=== PATIENT | female | born 1955 | race Caucasian/White ===

== ENCOUNTER → 2017-05-01 12:08 | Outpatient (CLI) | payer OTHER, MEDICAID, SELFPAY ==
[2017-04-02 12:41] VITALS: BMI 33.3
[2017-04-02 16:05] VITALS: BP 146/79
[2017-05-01 12:41] LABS: Absolute Lymphocyte Count 1.95 X10^3/ul (0.83-4.51); Absolute Neutrophil Count 3.9 X10^3/uL (2.0-7.7); Basophil# 0.04 X10^3/uL; Basophil% 0.6 % (0-1); Eosinophil# 0.16 X10^3/uL; Eosinophils% 2.5 % (0-5); Hematocrit 39.6 % (37-47); Lymphocyte # 1.95 X10^3/ul (4.0); Mean Corp Hgb Conc 32.8 g/gl (32-36); Mean Corpuscular Hgb 32.4 pg (27.0-32.0); Mean Corpuscular Volume 98.8 fL (81-99); Mean Platelet Vol. 9.4 fl (6.2-12.0); Monocyte# 0.47 X10^3/uL; Monocyte% 7.2 % (0-10); Neutrophil # 3.87 X10^3/uL (2.7-7.7); Neutrophil % 59.5 % (47-70); Platelet Count 314 K/mm3 (150-450); RBC Distribution Width CV 12.4 % (11.6-14.6); RBC Distribution Width SD 44.9 fl (35.1-43.9); Red Blood Count 4.01 M/mm3 (4.2-5.4); White Blood Count 6.5 K/mm3 (4.4-11.0)
[2017-05-01 12:44] LABS: POSITIVE COUNT NO; POSITIVE DIFFERENTIAL NO; POSITIVE MORPHOLOGY NO
[2017-05-01 12:58] LABS: Erythrocyte Sedimentation Rate 23 mm/hr (0-30)
[2017-05-01 13:31] LABS: CRP, High Sensitivity Cardiac 2.75 mg/L
== END ==
PROVIDERS: Visit Provider Orthopaedic Surgery
DX: M16.11 Unilateral primary osteoarthritis, right hip (principal)
CPT/HCPCS: 36415; 85025; 85652; 86141

== ENCOUNTER 2017-06-02 07:44 | Inpatient (IN) | payer OTHER, MEDICAID, SELFPAY ==
[2017-05-14 15:04] VITALS: BP 126/69; PULSE 77; RESP 16; TEMP 37.3; O2SAT 97; BMI 32.5
--- NOTE | 2017-05-14 15:19 | SDCEKG_ITS ---
Test Reason : Blood Pressure : / mmHG Vent. Rate : 077 BPM Atrial Rate : 077 BPM P-R Int : 142 ms QRS Dur : 072 ms QT Int : 378 ms P-R-T Axes : 042 056 030 degrees QTc Int : 427 ms Normal sinus rhythm Normal ECG Confirmed by YULISA ARGUETA, ANDRES ([id number]), editor newspaper EMELYN KAUR ([id number]) on 05/16/2017 1:32:07 PM Referred By: Alex Kaur Confirmed By:ANDRES MÁRQUEZ MD
[2017-05-14 16:22] LABS: Hematocrit 37.4 % (37-47); Hemoglobin 12.4 g/dl (12.0-15.0); Mean Corp Hgb Conc 33.2 g/gl (32-36); Mean Corpuscular Hgb 32.9 pg (27.0-32.0); Mean Corpuscular Volume 99.2 fL (81-99); Mean Platelet Vol. 9.9 fl (6.2-12.0); Platelet Count 325 K/mm3 (150-450); RBC Distribution Width CV 12.1 % (11.6-14.6); Red Blood Count 3.77 M/mm3 (4.2-5.4); White Blood Count 7.8 K/mm3 (4.4-11.0)
[2017-05-14 16:27] LABS: Scan Indicated on CBC? Y/N NO
[2017-05-14 16:56] LABS: Anion Gap 8 (5-15); BUN 26 mg/dL (7-18); BUN/Creat Ratio 31.7 RATIO (10-20); Calcium,Total 9.2 mg/dL (8.5-10.1); Chloride 105 mmol/L (98-107); Creatinine, Serum 0.82 mg/dL (0.55-1.02); EST Glomerular Filtration Rate 75 mL/min (>60); Est Glom Filt Rate - Afr Amer 91 mL/min (>60); Estimated Creatinine Clearance 61.43 ml/min; Glucose 97 mg/dL (74-106); Potassium 3.4 mmol/L (3.5-5.1); Sodium Level 142 mmol/L (136-145)
--- NOTE | 2017-05-29 15:09 | CASEMGMT ---
Addendum entered by Emely Blanchard 05/29/17 15:24: Patient returned call. Patient states that she has a walker, cane, toilet riser, and shower chair at home. Patient states that she will be going to her friends house at discharge. Patient states that she is setup with [facility] for outpatient therapy and that her friend Alisha will be providing transportation. DIEUDONNE PAIZ will follow up with patient after surgery and assist with discharge needs. Original Note: RN IZABEL called patient regarding discharge needs after upcoming surgery. No answer and voice message left with return contact information. Chart reviewed at this time and Preadmission assessment states patient plans to return home and her friend Alisha will help with care. RN IZABEL will follow up with patient after surgery and will assist with discharge needs.
[2017-06-02] VITALS (9 sets, daily range): BP systolic 110–153; BP diastolic 40–70; PULSE 75–82; RESP 16; TEMP 36.3–37.2; O2SAT 92–99; BMI 32.5; BMI 32.4
[2017-06-02] MEDS: oxyCODONE HCl Cr 10 MG Tablet PO (08:39)
[2017-06-02] MEDS: Acetaminophen 500 MG Tablet 1000 MG PO ×3 (08:39→21:36)
[2017-06-02] MEDS: Celecoxib 200 MG Capsule 400 MG PO (08:39)
--- NOTE | 2017-06-02 09:55 | HIP_PTH ---
PATIENT: LESLIE AGUIRRE LOC: MS3 U#:[id number] AGE/SX: 61/F ROOM: MS313 RE06/02/[address]: Dr. Alex Kaur MD : [id number] BED: 1 DIS: 06/03/2017 SPEC #: [id number] RECD: 06/02/17 13:07 STATUS: PIETRO RETroy #: [id number] JUANITO: 06/02/17 09:[address]: Alex Kaur DEPT: SURGICAL PATHOLOGY RECD BY: Tree Majano ENTERED: 06/02/17 14:01 SP TYPE: TOTAL HIP OTHR DR: [facility] Tissues: Hip, NOS Procedures: Decalcification bone/plaque Surgery Specimen Level IV HEADER OPERATION: Right total hip replacement PRE-OP DIAGNOSIS: Right hip severe primary osteoarthritis TISSUE SUBMITTED: Right femoral head and soft tissue MICROSCOPIC DIAGNOSIS Right femoral head and soft tissue, total hip replacement/resection: Femoral head with degenerative osteoarthritic changes. LYRIC:shania 06/09/17 MICROSCOPIC DESCRIPTION Slides are reviewed. GROSS DESCRIPTION Received is one container designated right femoral head and soft tissue. The specimen consists of a morales femoral head with portion of femoral neck. The femoral head measures 4.5 x 5 x 4.5 cm and the portion of femoral neck measures 1.5 cm in length. The articular surface displays prominent osteophyte formation, eburnation and bone erosion. Also present in the specimen container are multiple irregular fragments of bone reamings measuring in aggregate 6 x 6 x 1.5 cm. Casting House Worker sections are submitted in three cassettes as follows: 1 ? bone reamings, 2 & 3 ? femoral head after decalcification. / LYRIC:shania 06/02/17 TC:5 [facility]: [id number], [id number]
[2017-06-02] MEDS: Cefazolin 2 GM in 0.9% Normal Saline 100 ML IV (10:15)
--- NOTE | 2017-06-02 11:47 | PCM.OP.BLANK ---
Operative Report Date of Procedure: 06/02/17 Preoperative diagnosis: [Right] hip primary osteoarthritis Postoperative diagnosis: Same Operation: [Right] total hip replacement surgery Surgeon: Dr. Alex Kaur MD Ruby Software Developer: Tiffany Oreilly PA-C Second training and development assistant yes Anesthesia: Spinal Anesthesiologist Dr. Quevedo Special medications: IV [Ancef], IV Tranexamic acid Indications for surgery : Patient is a [ 61]-year-old [female] with a long-standing history of [right] severe hip pain that has failed adequate nonoperative treatment. Due to persistent pain and disability, they decided to proceed with hip replacement surgery. Appropriate informed consent was obtained and signed. Appropriate medical workup was performed preoperatively and patient was deemed safe for surgery by the anesthesia department clerical assistant, physician training and development assistant, was utilized throughout the entire procedure. They were vital in helping with patient positioning, holding of retractors, exposing the tissues adequately for safe completion of the procedure including cutting of the bone, helping assistant buyer appropriate alignment and sizing of the components, implantation of the components, as well as wound closure, bandage application, and safe patient transfer. Without rn neurosurgical, physician training and development assistant, surgical time would have been significantly increased, and surgical outcome would have been less optimal. Operative findings: Patient had severe arthritis of the involved hip joint. They underwent a small posterior approach to the hip. We utilized a size [5 press-fit Accolade 2 stem] 127 degree neck angle, a press fit acetabular component size [50] titanium cluster, Trident X3 polyethylene liner with a 36 mm inner diameter, a Biolox ceramic femoral head size [36] with a +0 neck length. This reproduced there anatomy nicely. Clinically good leg lengths were noted. Good hip stability through range of motion with no undue pistoning. Standard wound closure in layers, followed by myah, followed by Mepilex dressing Details of procedure: Patient was taken to the operating room and transferred to the operating table. Given appropriate anesthetic agent by that department. Patient was then rolled into a lateral decubitus position with the involved painful hip up in the air. Appropriate timeouts had been performed. Hip had been appropriately marked with my initials. Padded anterior and posterior position was utilized. Axillary roll placed. FARIDEH hose and SCDs on the nonoperative limb utilized throughout the procedure. Tranexamic acid IV antibiotics given preoperatively. Operative lower extremity was prepped padded and draped in the usual orthopedic sterile fashion for the procedure. I injected the pain relieving solution in the standard sterile technique of the soft tissues of the hip carefully. Incision was made curving over the tip of the greater trochanter posteriorly. Full thickness skin flaps are raised down on the fascia anthony. Fascia anthony was opened in length with our incision. Charnley self-retaining hip retractor was carefully placed by the surgeon. Leg was appropriately rotated by the training and development assistant. Retractor was used to lift the abductors anteriorly to visualize the piriformis tendon and external rotators. Piriformis tendon and external rotators released off the greater trochanter with the Bovie. Tagging suture was placed in each of these separately. We then split the tissue superior to the piriformis tendon through capsule and onto the pelvis. Acetabular labrum was also divided. With traction and manipulation arthritic femoral head was dislocated from the pelvis. Retractors were carefully placed around the femoral neck. Cutting guide was utilized to map out the proposed cut approximately 1 fingerbreadth above the lesser trochanter. This femoral neck cut was carried out with a saw. Arthritic femoral head removed and measured and inspected. Inferior acetabular retractor was placed by the surgeon, held by the training and development assistant. Bone hook utilized to pull the proximal femur anteriorly, then replaced by a pointed Hohmann. Labrum removed from about the acetabulum a long knife. Tissue removed from the depth of the acetabulum with the Bovie. Arthritic acetabulum was noted. We began reaming with the appropriate sized reamer based on the measurement of the femoral head. Reaming was done with 45? of abduction, 20? of anteversion, reproducing there anatomy. Reaming was done incrementally up to the appropriate size creating a smooth cylindrical acetabulum was done down to healthy bone. Trial acetabular component 1 millimeters smaller than the largest reamer was utilized with the outrigger device. Appropriate abduction and anteversion confirmed as well as size and position of cup. We irrigated with bulb syringe saline. Appropriate acetabular opponent was opened and hammered into position with the outrigger device, with 45? of abduction and 20 degrees of anteversion. We could see through the hole in thrb cup it was adequately down onto the bone in the pelvis. Good stability was noted. Trial liner with a 10? sexton was appropriately positioned. Any anterior and/ or posterior osteophytes removed with an osteotome, rondure. Acetabular retractors removed. A proximal femoral elevator utilized. Held by the training and development assistant. We placed a pointed Homans at the anterior and posterior aspect of that retractor by the other training and development assistant. We used a sharp awl entering down inside the bone of the proximal femur. Utilized the brandon cutting osteotome the proximal lateral greater trochanteric region. The fragment removed. Broaching was then done from the smallest broach, upto the appropriate size. Good stability was confirmed. We then trialed the construct with a standard neck length and appropriate sized femoral head on 127? angle neck. We were happy with the construct. Good stability to flexion, rotation. At this point trials removed. Now placed the appropriate polyethylene acetabular liner into a clean dry previously placed shell. This was hammered into position. Suction device was used to confirm its stability. We now exposed the proximal femur appropriate retractors in place, actual femoral stem was checked, opened, and then hammered into the proximal femur and seated down to a similar position as the trial had. We now again trialed appropriate neck length upon. It was then opened. Now impacted the appropriate sized femoral head, neck construct onto the clean dried trunion. Was noted to be stable. Hip was inspected, and joint was reduced for a final time. Good hip stability and leg lengths noted. Now placed sterile Betadine solution in the hip joint for 3 minutes. This was then irrigated with saline and cleaned. Next the remainder of the pain relieving solution was injected carefully throughout the soft tissues of the hip joint. Closure was carried out with a combination of #1 Vicryl, running #2 strata fix in the fascia anthony, followed by mid layer #1 Vicryl with #1 strata fix running. Next running 0 strata fix, followed by skin myah, Xeroform, Mepilex dressing. We placed FARIDEH hose and SCD on the operative leg. Patient awoken from the anesthetic and transferred back to room bed in recovery room in satisfactory condition. Patient will be admitted for pain management, IV antibiotics, medication for DVT prevention. Hospitalist consulted for postoperative medical management. Hopeful discharge to home in 1-3 days This note was generated with [employer] software. It may contain incorrect words, spelling, and punctuation that were not noted in checking the note before signing.
--- NOTE | 2017-06-02 11:51 | OP.PCM_ITS ---
Operative Report Date of Procedure: 06/02/17 Preoperative diagnosis: [Right] hip primary osteoarthritis Postoperative diagnosis: Same Operation: [Right] total hip replacement surgery Surgeon: Dr. Alex Kaur MD Maintenance Custodian: Tiffany Oreilly PA-C Second school bus driver/teacher assistant yes Anesthesia: Spinal Anesthesiologist Dr. Quevedo Special medications: IV [Ancef], IV Tranexamic acid Indications for surgery : Patient is a [ 61]-year-old [female] with a long- standing history of [right] severe hip pain that has failed adequate nonoperative treatment. Due to persistent pain and disability, they decided to proceed with hip replacement surgery. Appropriate informed consent was obtained and signed. Appropriate medical workup was performed preoperatively and patient was deemed safe for surgery by the anesthesia department assistant principal, physician school bus driver/teacher assistant, was utilized throughout the entire procedure. They were vital in helping with patient positioning, holding of retractors, exposing the tissues adequately for safe completion of the procedure including cutting of the bone, helping heavy machinery assembler appropriate alignment and sizing of the components, implantation of the components, as well as wound closure, bandage application, and safe patient transfer. Without marketing administrative assistant, physician school bus driver/teacher assistant, surgical time would have been significantly increased, and surgical outcome would have been less optimal. Operative findings: Patient had severe arthritis of the involved hip joint. They underwent a small posterior approach to the hip. We utilized a size [5 press-fit Accolade 2 stem] 127 degree neck angle, a press fit acetabular component size [50] titanium cluster, Trident X3 polyethylene liner with a 36 mm inner diameter, a Biolox ceramic femoral head size [36] with a +0 neck length. This reproduced there anatomy nicely. Clinically good leg lengths were noted. Good hip stability through range of motion with no undue pistoning. Standard wound closure in layers, followed by myah, followed by Mepilex dressing Details of procedure: Patient was taken to the operating room and transferred to the operating table. Given appropriate anesthetic agent by that department. Patient was then rolled into a lateral decubitus position with the involved painful hip up in the air. Appropriate timeouts had been performed. Hip had been appropriately marked with my initials. Padded anterior and posterior position was utilized. Axillary roll placed. FARIDEH hose and SCDs on the nonoperative limb utilized throughout the procedure. Tranexamic acid IV antibiotics given preoperatively. Operative lower extremity was prepped padded and draped in the usual orthopedic sterile fashion for the procedure. I injected the pain relieving solution in the standard sterile technique of the soft tissues of the hip carefully. Incision was made curving over the tip of the greater trochanter posteriorly. Full thickness skin flaps are raised down on the fascia anthony. Fascia anthony was opened in length with our incision. Charnley self-retaining hip retractor was carefully placed by the surgeon. Leg was appropriately rotated by the school bus driver/teacher assistant. Retractor was used to lift the abductors anteriorly to visualize the piriformis tendon and external rotators. Piriformis tendon and external rotators released off the greater trochanter with the Bovie. Tagging suture was placed in each of these separately. We then split the tissue superior to the piriformis tendon through capsule and onto the pelvis. Acetabular labrum was also divided. With traction and manipulation arthritic femoral head was dislocated from the pelvis. Retractors were carefully placed around the femoral neck. Cutting guide was utilized to map out the proposed cut approximately 1 fingerbreadth above the lesser trochanter. This femoral neck cut was carried out with a saw. Arthritic femoral head removed and measured and inspected. Inferior acetabular retractor was placed by the surgeon, held by the school bus driver/teacher assistant. Bone hook utilized to pull the proximal femur anteriorly, then replaced by a pointed Hohmann. Labrum removed from about the acetabulum a long knife. Tissue removed from the depth of the acetabulum with the Bovie. Arthritic acetabulum was noted. We began reaming with the appropriate sized reamer based on the measurement of the femoral head. Reaming was done with 45? of abduction, 20? of anteversion, reproducing there anatomy. Reaming was done incrementally up to the appropriate size creating a smooth cylindrical acetabulum was done down to healthy bone. Trial acetabular component 1 millimeters smaller than the largest reamer was utilized with the outrigger device. Appropriate abduction and anteversion confirmed as well as size and position of cup. We irrigated with bulb syringe saline. Appropriate acetabular opponent was opened and hammered into position with the outrigger device, with 45? of abduction and 20 degrees of anteversion. We could see through the hole in thrb cup it was adequately down onto the bone in the pelvis. Good stability was noted. Trial liner with a 10? sexton was appropriately positioned. Any anterior and/ or posterior osteophytes removed with an osteotome, rondure. Acetabular retractors removed. A proximal femoral elevator utilized. Held by the school bus driver/teacher assistant. We placed a pointed Homans at the anterior and posterior aspect of that retractor by the other school bus driver/teacher assistant. We used a sharp awl entering down inside the bone of the proximal femur. Utilized the brandon cutting osteotome the proximal lateral greater trochanteric region. The fragment removed. Broaching was then done from the smallest broach, upto the appropriate size. Good stability was confirmed. We then trialed the construct with a standard neck length and appropriate sized femoral head on 127? angle neck. We were happy with the construct. Good stability to flexion, rotation. At this point trials removed. Now placed the appropriate polyethylene acetabular liner into a clean dry previously placed shell. This was hammered into position. Suction device was used to confirm its stability. We now exposed the proximal femur appropriate retractors in place, actual femoral stem was checked, opened, and then hammered into the proximal femur and seated down to a similar position as the trial had. We now again trialed appropriate neck length upon. It was then opened. Now impacted the appropriate sized femoral head, neck construct onto the clean dried trunion. Was noted to be stable. Hip was inspected, and joint was reduced for a final time. Good hip stability and leg lengths noted. Now placed sterile Betadine solution in the hip joint for 3 minutes. This was then irrigated with saline and cleaned. Next the remainder of the pain relieving solution was injected carefully throughout the soft tissues of the hip joint. Closure was carried out with a combination of #1 Vicryl, running #2 strata fix in the fascia anthony, followed by mid layer #1 Vicryl with #1 strata fix running. Next running 0 strata fix, followed by skin myah, Xeroform, Mepilex dressing. We placed FARIDEH hose and SCD on the operative leg. Patient awoken from the anesthetic and transferred back to room bed in recovery room in satisfactory condition. Patient will be admitted for pain management, IV antibiotics, medication for DVT prevention. Hospitalist consulted for postoperative medical management. Hopeful discharge to home in 1-3 days This note was generated with [employer]ation software. It may contain incorrect words, spelling, and punctuation that were not noted in checking the note before signing.
--- NOTE | 2017-06-02 12:15 | RAD_ITS ---
STUDY: X-RAY - PELVIS AND RIGHT HIP REASON FOR EXAM: Female, 61 years old. Right hip replacement. TECHNIQUE: Radiological exam, hip, unilateral, with pelvis when performed; 1 view COMPARISON: None. FINDINGS: The patient is status post right total hip replacement. Good alignment. Postoperative soft tissue changes. Moderate to severe left osteoarthritis. RAD/Hip Min 2 Views (Portable) IMPRESSION: Status post right total hip replacement. There is good alignment. Postoperative soft tissue changes. Electronically Signed: Arturo Lomeli MD at 15:48 EDT Tel [phone], Service support ,
[2017-06-02] MEDS: Lactated Ringers 1,000 ML 125 ML IV ×2 (13:29→21:35)
[2017-06-02] MEDS: Famotidine 20 MG Tablet PO (13:30)
[2017-06-02] MEDS: Senna/Docusate Sodium 1 Tablet 2 TABLET PO ×2 (13:30→21:36)
[2017-06-02] MEDS: DULoxetine Hcl 30 MG Capsule PO (13:31)
[2017-06-02] MEDS: Cefazolin 1 GM/50 ML BAG IV ×2 (16:42→21:35)
[2017-06-03 02:46] VITALS: BP 126/61; PULSE 77; RESP 18; TEMP 36.6; O2SAT 94
[2017-06-03] MEDS: Rivaroxaban 10 MG Tablet PO (05:32)
[2017-06-03] MEDS: Acetaminophen 500 MG Tablet 1000 MG PO ×2 (05:32→14:20)
[2017-06-03] MEDS: Cefazolin 1 GM/50 ML BAG IV (05:32)
[2017-06-03 05:34] LABS: Hematocrit 31.8 % (37-47); Hemoglobin 10.4 g/dl (12.0-15.0); Mean Corp Hgb Conc 32.7 g/gl (32-36); Mean Corpuscular Hgb 32.5 pg (27.0-32.0); Mean Corpuscular Volume 99.4 fL (81-99); Mean Platelet Vol. 9.8 fl (6.2-12.0); Platelet Count 260 K/mm3 (150-450); RBC Distribution Width CV 11.7 % (11.6-14.6); White Blood Count 6.4 K/mm3 (4.4-11.0)
[2017-06-03 05:37] LABS: Scan Indicated on CBC? Y/N NO
[2017-06-03 07:38] LABS: Anion Gap 7 (5-15); BUN 20 mg/dL (7-18); BUN/Creat Ratio 34.8 RATIO (10-20); Calcium,Total 8.3 mg/dL (8.5-10.1); Chloride 107 mmol/L (98-107); Creatinine, Serum 0.58 mg/dL (0.55-1.02); EST Glomerular Filtration Rate 113 mL/min (>60); Est Glom Filt Rate - Afr Amer 137 mL/min (>60); Estimated Creatinine Clearance 86.84 ml/min; Glucose 89 mg/dL (74-106); Potassium 4.1 mmol/L (3.5-5.1); Sodium Level 140 mmol/L (136-145)
[2017-06-03 07:50] VITALS: BP 125/49; PULSE 86; RESP 16; TEMP 36.7; O2SAT 95
[2017-06-03] MEDS: DULoxetine Hcl 30 MG Capsule PO (09:49)
[2017-06-03] MEDS: Famotidine 20 MG Tablet PO (09:49)
[2017-06-03] MEDS: Senna/Docusate Sodium 1 Tablet 2 TABLET PO (09:50)
--- NOTE | 2017-06-03 10:36 | CASEMGMT ---
RN IZABEL Face to Face with patient for initial transition planning/care coordination assessment. RN CM introduced self and role at [facility]. Patient lying in bed, alert and oriented. Patient willing to participate in assessment and is able to answer all questions appropriately. Care providers, pharmacy, and demographics verified. See link attached. Patient wishes to discharge to friend's home and is setup with outpatient therapy with [facility], with friend Alisha providing transportation. Patient states she has no further needs or concerns at this time. CM to follow for discharge planning needs that may arise. Disposition Plan: Patient to discharge home with outpatient therapy, support from friend, and follow-up plans in place.
--- NOTE | 2017-06-03 11:42 | PCM.PN.ORT ---
Subjective: Patient is resting comfortably in bed during exam. She has been very tired. No adverse events overnight. Pain in the right hip has been well controlled. She did well with physical therapy today. Denies chest pain, shortness of breath, dizziness, calf pain. She is doing well overall. She feels she is ready for discharge to home later today. Objective: Patient is alert and oriented ?3. No acute distress at rest. Breathing easily without respiratory distress. Inspection of right hip reveals a dressing that is clean, dry, intact. Negative Erica bilaterally. Without signs of DVT. Sensation intact light touch bilateral lower extremities. Patient able to actively plantar and dorsiflex bilateral feet against resistance. Pedal pulses present and equal bilaterally. Neurovascularly intact. - Physical Exam Vital Signs Temp Pulse Resp BP Pulse Ox 98.0 F 86 16 125/49 H 95 06/03/17 07:50 06/03/17 07:50 06/03/17 07:50 06/03/17 07:50 06/03/17 07:50 Oxygen Delivery Method Room Air Weight: 86.18 kg Body Mass Index (BMI) 32.4 Intake and Output for Last 24 Hours 06/01/17 06/02/17 06/03/17 23:59 23:59 23:59 Intake Total 2852 / 2852 820 / 820 Balance 2852 / 2852 820 / 820 Laboratory Tests Past 24 Hrs 06/03/17 06/03/17 04:58 04:58 WBC 6.4 RBC 3.20 L Hgb 10.4 L Hct 31.8 L MCV 99.4 H MCH 32.5 H MCHC 32.7 RDW 11.7 RDW Differential 41.0 Plt Count 260 MPV 9.8 Sodium 140 Potassium 4.1 Chloride 107 Carbon Dioxide 26.0 Anion Gap 7 BUN 20 H Creatinine 0.58 Estim Creat Clear Calc 86.84 Est GFR (MDRD) Af Amer 137 Est GFR (MDRD) Non-Af 113 BUN/Creatinine Ratio 34.8 H Glucose 89 Calcium 8.3 L Assessment/Plan 1. Status post right ALIYAH; postop day #1 2. Continue Tylenol, MS Contin, OxyIR for pain control 3. DVT prophylaxis; bilateral teds, SCDs begin Xarelto therapy. Plan for discharge with full strength aspirin 2 times daily 4. Begin PT/OT; weightbearing as tolerated right lower extremity with a walker. Hip dislocation precautions. 5. Drop in hemoglobin/hematocrit, asymptomatic. Without indications for transfusion continue to monitor 6. Encourage incentive spirometry 7. Continue discharge planning with case management. Anticipate discharge to home today. 8. Postoperative x-rays were reviewed
--- NOTE | 2017-06-03 11:51 | PCM.DC.THR ---
Discharge Diet: No Restrictions Discharge Activity: May Not Drive - while taking narcotic pain medications., May not drive while taking narcotic pain medications., Use Walker May shower in (days): 1 - only if incision is dry and without drainage. Do NOT soak/submerge in tub/pool/limon/stream/hot tub. Okay to shower over Mepilex dressing Ice area for (Minutes): 20 - Every hour as needed Weight Bearing Status: Weight bearing as tolerated Elevate: Operative Extremity Additional Activity Instructions:: Wear elastic stockings for 2 weeks. DO NOT use alcohol with narcotic pain medication. DO NOT make important decisions while taking narcotic medication. If you have problems with taking your medication (rash, itching, nausea, etc.) call the office at once. See postoperative pink sheet Call your doctor if your incision/area has: Continuous Slow Oozing, Sudden Increased Bleeding, Increased Pain/ Swelling, Increased Redness, Foul Smelling Discharge, Swelling at the incision site Call your doctor if you observe: Fever of 101 or Higher, Coldness, Increased Pain, Numbness or Tingling, Change in Color, Chest pain, Calf discomfort Remove Dressing in (days):: 5 Cleanse incision/area with: Soap & Water Additional Dressing/Incision Instructions:: See postoperative pink sheet Additional Instructions: Dr. Alex Kaur (cell) [phone] Allergies/Adverse Reactions: Allergies No Known Allergies Allergy (Verified 05/14/17 14:55) Medications to take at Discharge Duloxetine HCl 30 mg PO DAILY 06/14/16 Fluticasone 0.05% [Flonase Nasal Mouthcard] 2 spray NASAL DAILY PRN 05/14/17 Loratadine 10 mg PO DAILY PRN 05/14/17 Melatonin 1 mg PO DAILY PRN 05/14/17 Acetaminophen [Tylenol] 1,000 mg PO Q8 #30 tab 06/03/17 Aspirin 325 mg PO BID #30 tab 06/03/17 MorphINE [Ms Contin] 15 mg PO BID 7 Days #14 tablet 06/03/17 Oxycodone [Oxyir] 5 - 10 mg PO Q4H PRN PRN 7 Days #56 tablet 06/03/17 Senna/Docusate Sodium [Senokot-S] 2 tab PO BID #30 tab 06/03/17 The following prescriptions were given: Oxycodone [Oxyir] 5 - 10 mg PO Q4H PRN PRN 7 Days #56 tablet PRN Reason: Mod-Severe Pain (-12/31) Acetaminophen [Tylenol] 1,000 mg PO Q8 #30 tab Aspirin 325 mg PO BID #30 tab MorphINE [Ms Contin] 15 mg PO BID 7 Days #14 tablet Senna/Docusate Sodium [Senokot-S] 2 tab PO BID #30 tab Primary Care Physician: Lucita Washburn [Primary Care Provider] -
[2017-06-03 14:17] VITALS: BP 123/50; PULSE 81; RESP 16; TEMP 37.2; O2SAT 95
== END 2017-06-03 16:24 | disposition home or self-care (01) | DRG 470 ==
PROVIDERS: Admitting Provider Orthopaedic Surgery; Visit Provider Orthopaedic Surgery
PROC: 0SR90JZ Replacement of Right Hip Joint with Synthetic Substitute, Open Approach (ICD-10-PCS; CPT 27130; principal; 2017-06-02 09:30)
DX: M16.11 Unilateral primary osteoarthritis, right hip (principal); R71.0 Precipitous drop in hematocrit; F32.9 Major depressive disorder, single episode, unspecified; E66.9 Obesity, unspecified; Z68.32 Body mass index [BMI] 32.0-32.9, adult
CPT/HCPCS: 36415; 73502; 80048; 85027; 87081; 88305; 88311; 97110; 97116; 97162; 97165; 97530; 97535; J7120

== ENCOUNTER 2017-11-29 11:11 | Emergency (ER) | payer OTHER, SELFPAY ==
[2017-11-29 11:13] VITALS: BP 157/94; PULSE 84; RESP 20; TEMP 36.8; O2SAT 97; BMI 36.6
--- NOTE | 2017-11-29 12:05 | ED.VISSUMM ---
- ER Visit Summary Date of Service: 11/29/17 Chief Complaint: Left hip pain History of Present Illness: The patient is a 62 F who states that yesterday she began have pain in her left hip. She states it is worse with walking. It was not present when she got up only after she began moving. No trauma. She denies any fevers or rashes. She has a history of degenerative joint disease on that side and has had a prior right hip replacement. Physical Examination: Afebrile vital signs are stable Gen: Well-nourished well-developed Head: Normocephalic atraumatic Eyes: Perrl EOMI ENT: TMs clear no rhinorrhea moist mucous membranes Neck: Supple no lymphadenopathy no JVD nontender CVS: Regular rate rhythm no murmurs normal S1-S2 Respiratory: No distress clear to auscultation bilaterally chest nontender Abdomen: Soft nontender nondistended normal bowel sounds no masses Back: Nontender Extremity: Left leg is neurovascularly intact. There is tenderness over the greater trochanter. There is no pain with logrolling. There is pain with AB and adduction and flexion and extension. Skin: Normal color no rash Neuro: alert orientated ?3 CN II-XII intact normal strength sensation reflexes gait cerebellar Psych: Normal affect normal mood Test Results: X-rays of hip degenerative joint changes were noted. Emergency Department Course and Treatment: The patient has no pain with logrolling of the hip. Her pain seems to be centered over the greater trochanter. I think is most likely a greater trochanteric bursitis. We will treat with a burst pack of prednisone. She is already on anti-inflammatories. I will write for a few OxyIR. She is to follow-up with her surgeon Dr. Kaur. Or with her primary care physician. Impression: 1. Left hip greater trochanteric bursitis This note was generated with [place] acquired by [employer] dictation software. It may contain incorrect words, spelling, and punctuation that were not noted in review of the chart prior to signing ED Disposition - Plan for ED Patient: Disposition: Home or Assisted Living Chief Complaint: Lower Extremity Injury Instructions: ED Bursitis Prescriptions: Oxycodone [Oxyir] 5 mg PO Q6H PRN PRN 3 Days #12 tab PRN Reason: hip pain Prednisone [Deltasone] 40 mg PO DAILY #10 tab Referrals: Lucita Washburn [Primary Care Provider] - 1 Week if not improving Alex Kaur MD [STAFF PHYSICIAN] - 1 Week if not improving
[2017-11-29 12:18] VITALS: BP 133/80; PULSE 81; RESP 16; O2SAT 95
== END 2017-11-29 12:28 | disposition home or self-care (01) ==
LOC: ED 12:24
PROVIDERS: Emergency Provider Emergency Medicine
DX: M70.62 Trochanteric bursitis, left hip (principal); Y93.9 Activity, unspecified; Z96.641 Presence of right artificial hip joint
CPT/HCPCS: 73502; 99282

== ENCOUNTER → 2017-12-03 15:25 | Outpatient (CLI) | payer OTHER, SELFPAY ==
--- NOTE | 2017-12-03 15:26 | BI_ITS ---
MAMMOGRAPHY - BILATERAL SCREENING REASON FOR EXAM: Female, 62 years old. Routine annual screening examination. PERTINENT HISTORY: Non-contributory. TECHNIQUE: Digital bilateral breast guy (3D mammographic acquisition) in the CC and MLO projections. 2-D mediolateral oblique (MLO) and craniocaudad (CC) views of both breasts were obtained. CAD: Full Field Digital Mammography with Computer Added Detection was performed. COMPARISON: Comparison is made with prior study dated October 10, 2015 and November 07, 2015. FINDINGS: Breast Composition: There are scattered areas of fibroglandular density. There are no dominant masses or suspicious calcifications. Stable focal asymmetry in the upper deep lateral portion of the left breast. This most likely represents asymmetrical glandular tissue. Stable appearance of the bilateral small axillary lymph nodes. No other significant abnormalities are identified. There has been no significant change since the prior study. BI/SCREENING MAMM (CAD), BILAT IMPRESSION: Stable bilateral screening mammogram. Yearly follow-up mammogram recommended. (A) ASSESSMENT CATEGORY: BIRADS Category 2: Benign. A letter regarding these results will be sent to the patient by the facility within 30 days. Approximately 10% of breast cancers are not detected by mammography. A normal mammogram should not delay biopsy of a clinically suspicious abnormality. [id number] Electronically Signed: Arturo Lomeli MD at 8:58 EDT Tel [phone], Service support ,
== END ==
DX: Z12.31 Encounter for screening mammogram for malignant neoplasm of breast (principal)
CPT/HCPCS: 77063; 77067

== ENCOUNTER 2018-01-26 04:12 | Inpatient (IN) | payer OTHER, MEDICAID, SELFPAY ==
[2018-01-26] VITALS (37 sets, daily range): BP systolic 89–171; BP diastolic 46–95; PULSE 73–108; RESP 12–22; TEMP 36.3–37.1; O2SAT 88–100; BMI 37.0; BMI 37.1; BMI 37.2
--- NOTE | 2018-01-26 04:15 | RAD_ITS ---
STUDY: X-RAY CHEST REASON FOR EXAM: Female, 62 years old. Left shoulder pain TECHNIQUE: Single frontal view of the chest. COMPARISON: None. FINDINGS: Low lung volumes. Chronic lung changes. Left basilar atelectasis/infiltrate. Azygos lobe. No pneumothorax. No pleural effusion. Normal size heart. Aortic calcifications. There are diffuse degenerative changes of the visualized thoracic spine. There is degenerative osteoarthritis of the bilateral shoulders. There is no demonstrated abnormality of the visualized soft tissue structures of the upper abdomen. RAD/Chest 1 View (Portable) IMPRESSION: Left basilar atelectasis/infiltrate. No focal consolidation is seen. Electronically Signed: Fuentes Estrella, at 4:52 EST Tel , Service support ,
--- NOTE | 2018-01-26 04:15 | EKG12_ITS ---
Test Reason : CP Blood Pressure : / mmHG Vent. Rate : 077 BPM Atrial Rate : 077 BPM P-R Int : 136 ms QRS Dur : 072 ms QT Int : 386 ms P-R-T Axes : 026 025 017 degrees QTc Int : 436 ms Normal sinus rhythm Normal ECG Confirmed by DULCE ARGUETA, RUTH ([id number]), graphics editor EMELYN ZENDEJAS ([id number]) on 01/27/2018 2:08:16 PM Referred By: Natalie Horner Confirmed By:RUTH CARDONA MD
--- NOTE | 2018-01-26 04:18 | ED.DCSUM_ITS ---
- ER Visit Summary Date of Service: 01/26/18 Chief Complaint: Chest pain History of Present Illness: The patient is a 62 F presenting with chest pain that started around 10 PM. Pain is in the left side of her chest and radiates to her left jaw. At its worst it was 9/10. Currently 6/10. She has associated shortness of breath, nausea. She has no PE/DVT risk factors. She is not a smoker. She is scheduled for hip replacement on Friday of this week. Physical Examination: Vitals are stable. Patient is afebrile. Alert no acute distress. HEENT exam is unremarkable. Neck is supple. Lungs are clear and equal bilaterally. Heart is regular rate and rhythm. Abdomen is soft nontender nondistended. Extremities are unremarkable. Skin is warm and dry. No focal neurologic deficit. Remainder of exam is unremarkable. Emergency Department Course and Treatment: Patient is given aspirin, morphine, Zofran. EKG is sinus rate 77. CBC shows white count 11.5, chemistries unremarkable other than BUN 20. Troponin is negative. Chest x-ray shows atelectasis versus infiltrate left base. Patient has no cough or fever. She is pain-free on reevaluation. Discussed with the hospitalist for observation. Disposition: Observation Impression: Chest pain This note was generated with [employer] dictation software. It may contain incorrect words, spelling, and punctuation that were not noted in review of the chart prior to signing ED Disposition - Plan for ED Patient: Chief Complaint: Chest Pain Referrals: Huseyin Luis,Lucita Falk [Primary Care Provider] -
[2018-01-26] MEDS: Ondansetron 4 MG/2 ML Vial IV (04:25)
[2018-01-26 04:27] LABS: Absolute Lymphocyte Count 2.57 X10^3/ul (0.83-4.51); Absolute Neutrophil Count 7.9 X10^3/uL (2.0-7.7); Basophil# 0.06 X10^3/uL; Basophil% 0.5 % (0-1); Eosinophil# 0.11 X10^3/uL; Hematocrit 37.5 % (37-47); Hemoglobin 12.4 g/dl (12.0-15.0); Lymphocyte # 2.57 X10^3/ul (4.0); Lymphocyte % 22.3 % (19-41); Mean Corp Hgb Conc 33.1 g/gl (32-36); Mean Corpuscular Hgb 32.3 pg (27.0-32.0); Mean Corpuscular Volume 97.7 fL (81-99); Mean Platelet Vol. 9.5 fl (6.2-12.0); Monocyte# 0.85 X10^3/uL; Monocyte% 7.4 % (0-10); Neutrophil # 7.89 X10^3/uL (2.7-7.7); Neutrophil % 68.6 % (47-70); Platelet Count 342 K/mm3 (150-450); RBC Distribution Width CV 12.3 % (11.6-14.6); RBC Distribution Width SD 42.4 fl (35.1-43.9); Red Blood Count 3.84 M/mm3 (4.2-5.4); White Blood Count 11.5 K/mm3 (4.4-11.0)
[2018-01-26] MEDS: Morphine 4 MG/ML Syringe IV (04:27)
[2018-01-26 04:29] LABS: POSITIVE COUNT NO; POSITIVE DIFFERENTIAL NO; POSITIVE MORPHOLOGY NO
[2018-01-26 04:47] LABS: Anion Gap 9 (5-15); BUN 20 mg/dL (7-18); BUN/Creat Ratio 30.2 RATIO (10-20); Calcium,Total 8.8 mg/dL (8.5-10.1); Chloride 107 mmol/L (98-107); Creatinine, Serum 0.66 mg/dL (0.55-1.02); EST Glomerular Filtration Rate 96 mL/min (>60); Est Glom Filt Rate - Afr Amer 116 mL/min (>60); Glucose 101 mg/dL (74-106); Potassium 3.5 mmol/L (3.5-5.1); Sodium Level 142 mmol/L (136-145)
--- NOTE | 2018-01-26 05:43 | PCM.HP.STD ---
Problem List (1) Chest pain Status: Acute (2) Depression Status: Acute History of Present Illness Date of Admission: 01/26/18 Chief Complaint: chest pain The patient is a 62 year old F with a significant history of depression; arthritis status post right hip replacement and scheduled left hip replacement; who presented with episodic progressively worsening chest pain. Her symptoms started a day before her admission. Patient reported that all day she had left-sided shoulder pain that radiated to her left neck; and left jaw. She reports soreness at the left neck. The night of the same day around 10 PM she began to have chest pain that radiated to her back. She described the pain as a tightness and heaviness. Her pain is aggravated by turning her neck and also by moving in bed or attempting to change position. Her pain is improved when she lies still. She denied any nausea or diaphoresis. Patient is scheduled to have a left hip replacements on Friday, January 28. She used to take meloxicam for arthritis but because of the upcoming hip replacement surgery she has been off meloxicam for about 1 week. She takes Tylenol at home. Past Medical History Medical History: Medical History (Last Updated 01/26/18 @ 06:04 by Ino Null MD) Osteoarthritis M19.90 Allergies No Known Allergies Allergy (Verified 11/29/17 11:11) Home Medications: Ambulatory Orders Medication Instructions Recorded Duloxetine HCl 30 mg PO DAILY 06/14/16 Fluticasone 0.05% [Flonase Nasal 2 spray NASAL DAILY PRN 05/14/17 [place]] Loratadine 10 mg PO DAILY PRN 05/14/17 Meloxicam 15 mg PO BID 11/29/17 Oxycodone [Oxyir] 5 mg PO Q6H PRN PRN 3 Days #12 tab 11/29/17 Prednisone [Deltasone] 40 mg PO DAILY #10 tab 11/29/17 Surgical History: cholecystectomy, hysterectomy, - - Left hip replacement Psychiatric History: Depression Lives: Alone Smoking Status: Never smoker - *Family History Maternal Family History: Family History (Last Updated 01/26/18 @ 06:09 by Ino Null MD) Father Stomach cancer Heart problem Mother Diabetes Paternal Family History: Family History (Last Updated 01/26/18 @ 06:09 by Ino Null MD) Father Stomach cancer Heart problem Mother Diabetes History Items: - Sibling Family History: Family History (Last Updated 01/26/18 @ 06:09 by Ino Null MD) Father Stomach cancer Heart problem Mother Diabetes History Items: - Review of Systems Constitutional: Denies: Chills, Fever, Weight Change HEENT: Denies: Head Aches, Sinus Congestion, Sinus Drainage Cardiovascular: Reports: Chest Pain. Denies: Palpitations Respiratory: Denies: Cough, Shortness of breath at rest, Sputum production Gastrointestinal: Denies: Abdominal Pain, Nausea, Vomiting Genitourinary: Denies: Dysuria Musculoskeletal: Reports: Neck Pain - Left, Shoulder Pain - Left. Denies: Joint Pain, Joint Tenderness Skin: Denies: Rash, Wounds Neurological: Denies: Numbness, Tingling, Focal weakness Psychiatric: Denies: Anxiety, Depression, Homicidal Ideations, Suicidal Ideations Hematologic/ Lymphatic: Denies: Easy Bruising, Easy Bleeding VTE Information - Inpt Only VTE Present on Admission: No VTE Mechan Device Prophylaxis: None VTE Pharm Prophylaxis ordered?: Yes Patient Problems: Active and Suspected Problems Chest pain (Acute) Depression (Acute) - Physical Exam General: Alert, Oriented x3, Cooperative HEENT: Atraumatic, PERRLA, EOMI, Normocephalic Neck: Supple, No JVD, Negative Carotid Bruits Lungs: Clear to auscultation, Normal air movement, - - Tender substernal area. Cardiovascular: Regular rate, No murmurs Abdomen: Bowel Sounds Present, Soft, Non Tender Extremities: No edema, Capillary Refill Less than 3 Seconds, Tenderness - Left neck and spinous process of upper back. Skin: No rashes, No breakdown Musculoskeletal: No Muscle Wasting Neurological: Cranial nerves II-XII grossly intact Psych/Mental Status: Normal Affect, Appropriate Vital Signs Temp Pulse Resp BP Pulse Ox 98.4 F 80 22 H 171/95 H 96 01/26/18 04:14 01/26/18 04:14 01/26/18 04:14 01/26/18 04:14 01/26/18 04:22 Oxygen Delivery Method Room Air Weight: 91.777 kg Body Mass Index (BMI) 37.0 Laboratory Tests Past 24 Hrs 01/26/18 01/26/18 04:14 04:14 WBC 11.5 H RBC 3.84 L Hgb 12.4 Hct 37.5 MCV 97.7 MCH 32.3 H MCHC 33.1 RDW 12.3 RDW Differential 42.4 Plt Count 342 MPV 9.5 Immature Gran % (Auto) 0.200 Neut % (Auto) 68.6 Lymph % (Auto) 22.3 [place] % (Auto) 7.4 Eos % (Auto) 1.0 Baso % (Auto) 0.5 Absolute Neuts (auto) 7.9 H Absolute Lymphs (auto) 2.57 Total Counted Not Reportable Sodium 142 Potassium 3.5 Chloride 107 Carbon Dioxide 26.0 Anion Gap 9 BUN 20 H Creatinine 0.66 Estim Creat Clear Calc 69.00 Est GFR (MDRD) Af Amer 116 Est GFR (MDRD) Non-Af 96 BUN/Creatinine Ratio 30.2 H Glucose 101 Calcium 8.8 Troponin I < 0.015 Assessment/Plan All Active Problems Chest pain (Acute) Depression (Acute) ? r kidney nodule ct of abd (Acute) Left shoulder pain (Acute) The patient is a 62 year old F with a significant history of depression; arthritis status post right hip replacements and scheduled left hip replacement; who presented with episodic progressively worsening chest pain; left shoulder pain, left neck pain and upper back pain. Chest pain Admit to a monitored bed on PCU Impression of chest x-ray by radiologist included left basilar atelectasis/infiltrate.; aortic calcification; and degenerative osteoarthritis of bilateral shoulders. EKG independently reviewed confirms sinus rhythm with no repolarization abnormalities. Differential diagnosis include musculoskeletal source of chest pain. Review of old records show the patient has left shoulder pain documented on 01/06/2015. Cardiac source of chest pain, can not be ruled out at this time. Especially as patient is going to have left hip surgery in 2 days it will be appropriate to get a stress test to rule out cardiac source of chest pain. Patient took 324 mg of aspirin by herself and paramedics made her take an additional 324 mg of aspirin. So all in all she has received 648 mg of aspirin. No further aspirin for today. Also she was given nitroglycerin by paramedics. SL NTG 0.4 mg prn as needed for chest pain Morphine as needed for pain. High intensity statin x1 ordered. Troponin at emergency department was negative. Serial cardiac enzymes ordered Stat EKG as needed for chest pain Stress test in the AM if the cardiac enzymes are negative. If stress test is negative recommend patient go back to taking meloxicam after her scheduled left hip replacement. Consider short-term dose of pain medicine upon discharge if her stress test is unremarkable. If her pain remains persistent with meloxicam she may need imaging of her neck/shoulder but this will be outpatient. Atelectatic lungs Patient had no cough; or fever. She has some mild leukocytosis. Pneumonia is unlikely. Incentive spirometer ordered. Elevated blood pressure without diagnosis of hypertension. On admission her blood pressure was not within goal. Patient reported anytime that she has pain her blood pressure goes up. Her elevated blood pressure may be because of pain or she may have some underlying benign essential hypertension. Trend blood pressures at this time. Depression Duloxetine continued DVT prophylaxis Subcutaneous Lovenox. Miscellaneous: Home medication reconciliation. She takes Flonase as needed - reports she has no need at this time. She takes loratadine as needed?reports she has no need at this time. Meloxicam is on hold because of her upcoming surgery. She does not take oxycodone at this time. She does not take prednisone at this time. Code Visit OBSV E&M: 15180 Initial observation care L3
--- NOTE | 2018-01-26 07:47 | EKG12_ITS ---
Test Reason : CP REPEAT Blood Pressure : / mmHG Vent. Rate : 073 BPM Atrial Rate : 073 BPM P-R Int : 148 ms QRS Dur : 080 ms QT Int : 398 ms P-R-T Axes : 040 051 032 degrees QTc Int : 438 ms Normal sinus rhythm Normal ECG When compared with ECG of 26-JAN-2018 04:16, MANUAL COMPARISON REQUIRED, DATA IS UNCONFIRMED Confirmed by DULCE ARGUETA, RUTH ([id number]), publications editor EMELYN ZENDEJAS ([id number]) on 01/29/2018 4:02:17 PM Referred By: Natalie Horner Confirmed By:RUTH CARDONA MD
--- NOTE | 2018-01-26 08:00 | STE_ITS ---
Reason For Study: CHEST PAIN Stress Results Protocol: Dobutamine Maximum Predicted HR: 157 bpm Target HR: 133 bpm % Maximum Predicted HR: 87 % DurationHeart Rate Stage (mm:ss) (bpm) BP Dose Comment BASELINE 75 145/75 STAGE 1 3:00 103 135/6710.00 STAGE 2 3:00 134 / 20.00 STAGE 3 0:24 136 / 30.00 RECOVERY 83 149/66 SOME DISCOMFORT IN HER LEFT HEAD/NECK AREA Stress Duration: 6:24 mm:ss Maximum Stress HR: 136 bpm Baseline Echocardiogram Findings Stress Echo Wall motion Data Resting WM Intermediate WM Stress WM Resting Wall Motion Wall Motion Stress No regional wall motion No regional wall motion abnormalities noted. abnormalities noted. Ejection Fraction 60 %. Ejection Fraction 70 %. Stress Results Drug infusion was stopped due to achievement of target heart rate. Normal blood pressure response to exercise. Interpretation Summary Dobutamine stress echocardiogram. Resting EKG demonstrates normal sinus rhythm with rate of 73 bpm normal intervals are noted resting blood pressure 145/75 mmHg. Dobutamine was infused starting at 10 mcg/kg/min increasing in 3-minute increments to a peak of 30 mcg/kg/min. The maximum heart rate attained was noted to be 137 bpm which was 87% of maximum predicted heart rate the maximum workload was 1 metabolic equivalent. Patient maintained sinus rhythm throughout the recording. At rest there were no ST or T wave changes noted suggest ischemia at peak infusion no ST or T wave changes were noted suggest ischemia. The resting blood pressure was noted to be 145/75 with a peak blood pressure 149/66. Stress echocardiographic images. The resting echocardiogram performed demonstrated an ejection fraction of 60%. During dobutamine peak infusion the ejection fraction was noted to be 70%. No wall motion abnormalities were noted. Conclusion. 1. normal dobutamine stress echocardiographic imaging. No arrhythmias noted. Ordering Physician: MD Bird Brizuela MD Referring Physician: Natalie Greene Performed By: Alejandra Maher RDCS, RVT
[2018-01-26] MEDS: Atorvastatin Calcium 80 MG Tablet PO (11:03)
[2018-01-26] MEDS: DULoxetine Hcl 30 MG Capsule PO (11:04)
[2018-01-26] MEDS: Acetaminophen 325 MG Tablet 650 MG PO (11:06)
[2018-01-26] MEDS: DiphenhydrAMINE 50 MG/ML Syringe 25 MG IV (15:00)
[2018-01-26] MEDS: MethylPREDNISolone 125 MG/2 ML Vial IV (15:00)
--- NOTE | 2018-01-26 15:19 | RAD_ITS ---
STUDY: X-RAY CHEST REASON FOR EXAM: Female, 62 years old. Endotracheal tube placement. TECHNIQUE: Single AP portable view of the chest. COMPARISON: Comparison is made with prior examination dated January 26, 2018 at 4:27 AM. FINDINGS: The tip of the endotracheal tube is at the level of the duke. It should be pulled back approximately 2 cm. There is evidence of vascular congestion and mild CHF. There is no demonstrated pleural abnormality. Normal size heart. Stable widening of the superior mediastinum. This may be due to the technique. Normal visualized pulmonary arteries. Normal visualized aortic arch and descending thoracic aorta. Normal visualized thoracic spine. Normal visualized ribs, clavicles, and shoulders. Gaseous distention of the stomach. RAD/Chest 1 View (Portable) IMPRESSION: The tip of the endotracheal tube is at the level of the duke. It should be pulled back approximately 2 cm. Stable widening of the superior mediastinum. Gaseous distention of the stomach. Electronically Signed: Arturo Lomeli MD at 15:40 EST Tel [phone], Service support ,
--- NOTE | 2018-01-26 15:30 | NURSING ---
In ICU 1 per bed from PCU, COVERING MACHINE TENDER and MUD JACK NOZZLEMAN in attendance.
--- NOTE | 2018-01-26 16:00 | RAD_ITS ---
STUDY: X-RAY CHEST REASON FOR EXAM: Female, 62 years old. ET tube placement TECHNIQUE: Single frontal view of the chest. COMPARISON: January 26, 2018 FINDINGS: ET tube is been withdrawn 3 cm above the duke. There is now an enteric tube in the stomach. Mild congestion. Right lower lobe airspace disease or subsegmental atelectasis. There is no demonstrated pleural abnormality. Normal size heart. Prominent mediastinum unchanged. Normal visualized pulmonary arteries. Normal visualized aortic arch and descending thoracic aorta. Normal visualized thoracic spine. Normal visualized ribs, clavicles, and shoulders. There is no demonstrated abnormality of the visualized soft tissue structures of the upper abdomen. RAD/Chest 1 View (Portable) IMPRESSION: New right lower lobe airspace disease and mild congestion. Stable prominent superior mediastinum. ET and NG tubes as above. Electronically Signed: Shreyas Mccloud MD at 16:53 EST , Service support ,
--- NOTE | 2018-01-26 16:09 | NURSING ---
1408-Paged Dr. Brizuela via ammonia print operator--Pt having anaphylactic reaction to x1 dose of Lipitor 80mg. Gave @ 1103. Lips swollen. Welts on back 1418-Paged Dr. Brizuela again via ammonia print operator d/t no response. 1434-Paged Dr. Brizuela again via ammonia print operator d/t no response. 1443 WORKFORCE DEVELOPMENT SPECIALIST called to alert Dr. Brizuela of allergic reaction. Arrived at bedside. Orders obtained. Awaiting pharmacy verification. 1502 In process of giving Benadryl 25mg and Epi 1mg, Pt began to c/o heart racing and not feeling well. Became diaphoretic and pale. 2nd WORKFORCE DEVELOPMENT SPECIALIST called and charge account clerk notified and arrived at bedside. 1504 Code Blue called. See Code documentation.
--- NOTE | 2018-01-26 16:29 | CHAPLAIN ---
Type of Pastoral Visit ___ Initial Visit ___ Follow-up Visit ___ On-call Visit ___ General Patient Visit ___ Spiritual Assessment ___ Family Conference ___ Bereavement ___ Rapid Response _x__ Code Blue ___ Other (describe below) Pastoral Care Referral From ___ Patient ___ Family ___ Nurse ___ Physician ___ Automotive Upholsterer ___ Scooter Mechanic _x__ Other (describe below) Sacrament/Intervention ___ Active listening ___ Anointing ___ Nondenominational ___ Bereavement ___ Communion ___ Mariola exploration ___ ___ Life review _x__ Prayer ___ Reconciliation ___ Sacrament of Sick _x__ Supportive presence ___ Wedding _x_ Other (describe below) Pastoral Comments responded to RR and then Code Blue while patient was in PCU; sat with dear friend who asked hatchery man to contact aircraft structural design engineer of patient; friend agreed to have prayers said for pt; call made to aircraft structural design engineer and he responded; family members are out of state and contact information was unavailable at this time; gave presence with friend and took her to ICU when pt was moved there; sat with friend until their aircraft structural design engineer arrived; made contact with DIEUDONNE
--- NOTE | 2018-01-26 16:51 | PCM.PN.HOSP ---
Patient Problems: Active and Suspected Problems (Last Updated 01/26/18 @ 06:04 by Ino Null MD) Chest pain (Acute) Depression (Acute) Subjective: Patient is a 62-year-old lady admitted with chest discomfort. Patient was placed on a monitored bed AL was ruled out with serial cardiac enzymes as part of his management patient underwent a nuclear stress test to rule out myocardial ischemia. Patient Patient apparently had Lipitor ordered did receive. She apparently went into angioedema resulting in significant swelling of the mouth and tongue. A rapid response was called and order was given for patient to receive epinephrine, Solu-Medrol, Benadryl, as well as famotidine. Patient apparently did receive the ordered medications however her clinical condition continued to deteriorate patient was later found to be in nonsustained VT as well as to start with no pulse ACLS was called patient was successfully resuscitated with return of spontaneous circulation using ACLS protocol. In view of patient's angioedema consultation was placed to anesthesia patient was intubated and transferred to the intensive care unit with consultation placed to the intensive order puller Dr. Ochoa Objective: GENERAL: cooperative HEENT: Markedly swollen lower lips and tongue EYES; Anicteric, Normal Conjunctiva NECK; supple, normal thyroid, no distended JVD. RESPIRATORY: Diminished to auscultation bilaterally, CARDIOVASCULAR: Regular S1 S2, no audible murmurs GI: soft, non-tender, normoactive bowel sounds, : No Renal angle tenderness; EXTREMITIES: No edema, no clubbing, no cyanosis. MUSCULOSKELETAL: No Joint Tenderness; no muscle waisting NEURO: Awake; no lateralizing signs. SKIN: No Rash PSYCH; Normal affect Vitals/I&O's: Vital Signs Temp Pulse Resp BP Pulse Ox 97.9 F 80 20 H 134/79 H 97 01/26/18 14:42 01/26/18 14:42 01/26/18 14:42 01/26/18 14:42 01/26/18 14:42 Oxygen Flow Rate (L/min) 2 Oxygen Delivery Method Nasal Cannula Weight: 92.2 kg Body Mass Index (BMI) 37.1 Intake and Output for Last 24 Hours 01/25/18 01/25/18 01/26/18 00:59 23:59 23:59 Intake Total 500 / 500 Balance 500 / 500 Laboratory Results 01/26/18 04:14: WBC 11.5 H, RBC 3.84 L, Hgb 12.4, Hct 37.5, MCV 97.7, MCH 32.3 H, MCHC 33.1, RDW 12.3, RDW Differential 42.4, Plt Count 342, MPV 9.5, Immature Gran % (Auto) 0.200, Neut % (Auto) 68.6, Lymph % (Auto) 22.3, [place] % (Auto) 7.4, Eos % (Auto) 1.0, Baso % (Auto) 0.5, Absolute Neuts (auto) 7.9 H, Absolute Lymphs (auto) 2.57, Total Counted Not Reportable 01/26/18 04:14: Sodium 142, Potassium 3.5, Chloride 107, Carbon Dioxide 26.0, Anion Gap 9, BUN 20 H, Creatinine 0.66, Estim Creat Clear Calc 69.00, Est GFR (MDRD) Af Amer 116, Est GFR (MDRD) Non-Af 96, BUN/Creatinine Ratio 30.2 H, Glucose 101, Calcium 8.8, Troponin I < 0.015 01/26/18 08:10: Troponin I < 0.015 01/26/18 11:08: Troponin I < 0.015 Current Medications Acetaminophen (Tylenol) 650 mg PO Q6H PRN PRN PRN Reason: Mild Pain (1-3)/Temp > 100.7 F Last Admin: 01/26/18 11:06 Dose: 650 mg Albuterol Sulfate (Ventolin Aerosols) 2.5 mg INHALATION Q2H PRN PRN PRN Reason: DYSPNEA/WHEEZING/SOB Albuterol/Ipratropium (Duoneb) 3 ml INHALATION Q4H.RT BEST Bisacodyl (Dulcolax) 5 mg PO DAILY PRN PRN PRN Reason: Constipation Chlorhexidine Gluconate () 15 ml PO BID [facility] Duloxetine HCl (Cymbalta) 30 mg PO DAILY [facility] Last Admin: 01/26/18 11:04 Dose: 30 mg Enoxaparin Sodium (Lovenox) 40 mg SC DAILY@1000 BEST Famotidine 20 mg/ Sodium (Chloride) 10 mls @ 300 mls/hr IV Q12 [facility] Propofol (Diprivan) 1,000 mg in 100 mls @ 5.532 mls/hr CONT INF .Q12H BEST Magnesium Hydroxide (Milk Of Magnesia) 30 ml PO DAILY PRN PRN Reason: Constipation Morphine Sulfate () 1 - 2 mg IV Q4H PRN PRN PRN Reason: PAIN Nitroglycerin (Nitrostat) 0.4 mg SUBLINGUAL Q5M PRN PRN Reason: CHEST PAIN Ondansetron HCl (Zofran) 4 mg IV Q8H PRN PRN PRN Reason: NAUSEA Sodium Chloride () 5 - 30 ml IV UD PRN PRN Reason: SALINE FLUSH Medical Necessity - Tobacco Use Smoking Status: Never smoker Assessment/Plan All Active Problems (Last Updated 01/26/18 @ 06:04 by Ino Null MD) Left shoulder pain (Acute) ? r kidney nodule ct of abd (Acute) Chest pain (Acute) Depression (Acute) 1. Acute hypoxic respiratory failure related to upper airway obstruction related to patient's angioedema patient was intubated by anesthesia using a glide scope subsequently to the intensive care unit consultation was placed to the order puller 2. Angioedema attributed to patient having received Lipitor patient was administered with Benadryl, Solu-Medrol as well as epinephrine 3. Nonsustained VT and torsades this was aborted with magnesium sulfate as part of patient ACLS protocol 4. Chest pain AL was ruled out with serial cardiac enzymes valuation with a stress echo which was negative for stress-induced ischemia 5. Elevated blood pressure on admission 6. Osteoarthritis 7. DVT prophylaxis SC Lovenox 8. Obesity with BMI of 37.2 CC time spent as part of patient resuscitation running the ACLS code subsequent orders review of imaging transferred to ICU: 55 minutes Code Visit Procedures: 85856 Critial Care 1st Hr
[2018-01-26 17:39] LABS: Phosphorus 3.8 mg/dL (2.5-4.9)
[2018-01-26 17:41] LABS: Absolute Lymphocyte Count 1.14 X10^3/ul (0.83-4.51); Absolute Neutrophil Count 21.5 X10^3/uL (2.0-7.7); Basophil# 0.03 X10^3/uL; Basophil% 0.1 % (0-1); Eosinophil# 0.02 X10^3/uL; Eosinophils% 0.1 % (0-5); Hematocrit 38.1 % (37-47); Hemoglobin 12.6 g/dl (12.0-15.0); Lymphocyte # 1.14 X10^3/ul (4.0); Lymphocyte % 4.9 % (19-41); Mean Corp Hgb Conc 33.1 g/gl (32-36); Mean Corpuscular Hgb 32.4 pg (27.0-32.0); Mean Corpuscular Volume 97.9 fL (81-99); Mean Platelet Vol. 9.9 fl (6.2-12.0); Monocyte# 0.55 X10^3/uL; Monocyte% 2.4 % (0-10); Neutrophil # 21.46 X10^3/uL (2.7-7.7); Neutrophil % 92.2 % (47-70); Platelet Count 334 K/mm3 (150-450); RBC Distribution Width CV 12.4 % (11.6-14.6); RBC Distribution Width SD 43.4 fl (35.1-43.9); Red Blood Count 3.89 M/mm3 (4.2-5.4); White Blood Count 23.3 K/mm3 (4.4-11.0)
[2018-01-26 17:42] LABS: Differential Indicated SCAN CRITERIA MET; POSITIVE COUNT NO; POSITIVE DIFFERENTIAL YES; POSITIVE MORPHOLOGY NO
[2018-01-26] MEDS: Propofol 10MG/Ml 1,000 MG/100 ML Bottle 5.532 MG CONT INF (17:50)
[2018-01-26 18:23] LABS: ALB/GLOB Ratio 0.8 RATIO (0.9-2.4); AST(SGOT) 71 U/L (15-37); Alanine Aminotransfer ALT/SGPT 48 U/L (13-56); Albumin, Serum 3.2 g/dL (3.2-5.0); Alkaline Phosphatase 100 U/L (45-117); Anion Gap 10 (5-15); BUN 21 mg/dL (7-18); Calcium,Total 8.2 mg/dL (8.5-10.1); Chloride 107 mmol/L (98-107); Creatinine, Serum 0.84 mg/dL (0.55-1.02); EST Glomerular Filtration Rate 73 mL/min (>60); Est Glom Filt Rate - Afr Amer 88 mL/min (>60); Estimated Creatinine Clearance 54.22 ml/min; Globulin 4.1 g/dL (2.2-4.2); Glucose 200 mg/dL (74-106); Magnesium 2.6 mg/dL (1.6-2.6); Potassium 3.5 mmol/L (3.5-5.1); Protein, Total 7.3 g/dL (6.4-8.2); Sodium Level 139 mmol/L (136-145)
--- NOTE | 2018-01-26 18:30 | NURSING ---
Addendum entered by Saima Ware 01/26/18 20:09: He states he lives in a care home in [place], as do their boys Original Note: per report, pt states has ex- and 3 sons. w/pt permission, this RN retrieved phone number and called Sam, pt's ex in an effort to find next of kin. Sam states he is her . He provided phone numbers for 2 of 3 sons of the pt.
[2018-01-26 19:11] LABS: Base Excess 2 mmol/L (-2 to +2); Bicarbonate 26.9 mmol/L (22-26); Blood Gas Specimen Type ART; FI02 50; Mode A-C; O2 Delivery Device Vent; PEEP 5; PO2 134 mmHG (75-100); RR 12; SITE R Radial; SO2 99 % (95-99); Time Given 1859; Total Carbon Dioxide 28 mmol/L; Vt 450; pCO2 44.7 mmHg (35-45); pH 7.39 (7.35-7.45)
[2018-01-26] MEDS: Dext 5%-0.45% NS 1,000 ML 100 ML IV (19:15)
[2018-01-26] MEDS: 0.9% NaCl Peripheral Flush Adult/Peds IV (21:11)
[2018-01-26] MEDS: Chlorhexidine 15 ML PO (21:12)
[2018-01-26] MEDS: Ipratropium/Albuterol Sulfate 3 ML AMPUL.NEB INHALATION (22:25)
[2018-01-27] VITALS (38 sets, daily range): BP systolic 113–145; BP diastolic 61–85; PULSE 75–110; RESP 12–32; TEMP 36.7–38.2; O2SAT 94–100
--- NOTE | 2018-01-27 01:23 | NURSING ---
Contacts - Sam Davis (ex-) lives in [place] [phone]. Three sons Nilo Rojo (eldest) lives in [place] no number, Salvador Rojo (middle son) lives in [facility] [phone], and Serina Davis (youngest son) [phone]. Ex called and stated pt had a sister, Nancy, in [place], [place], but did not provide number. Pt responded sister's number was in her phone contact list. This nurse was unable find a number with the contact name of Nancy.
[2018-01-27] MEDS: CHLORHEXIDINE GLUC 2% CLOTH 1 EACH TOWELETTE TOPICAL (01:33)
[2018-01-27] MEDS: Ipratropium/Albuterol Sulfate 3 ML AMPUL.NEB INHALATION (02:10)
[2018-01-27] MEDS: 0.9% NaCl Peripheral Flush Adult/Peds IV ×5 (04:16→23:56)
[2018-01-27] MEDS: Dext 5%-0.45% NS 1,000 ML 100 ML IV (04:16)
[2018-01-27 04:54] LABS: Absolute Neutrophil Count 15.9 X10^3/uL (2.0-7.7); Hematocrit 36.7 % (37-47); Lymphocyte % 4.6 % (19-41); Mean Corp Hgb Conc 32.7 g/gl (32-36); Mean Corpuscular Hgb 31.8 pg (27.0-32.0); Mean Corpuscular Volume 97.3 fL (81-99); Mean Platelet Vol. 10.2 fl (6.2-12.0); Monocyte# 0.72 X10^3/uL; Monocyte% 4.1 % (0-10); Neutrophil # 15.94 X10^3/uL (2.7-7.7); Neutrophil % 91.1 % (47-70); Platelet Count 311 K/mm3 (150-450); RBC Distribution Width CV 12.6 % (11.6-14.6); Red Blood Count 3.77 M/mm3 (4.2-5.4); White Blood Count 17.5 K/mm3 (4.4-11.0)
[2018-01-27 04:56] LABS: POSITIVE COUNT NO; POSITIVE DIFFERENTIAL NO; POSITIVE MORPHOLOGY NO
--- NOTE | 2018-01-27 05:08 | PCM.CON.CC ---
Problem List (1) Anaphylactic reaction Status: Acute Reason for Consult Date of Consultation: 01/27/18 Reason for Consultation: Acute Respiratory Failure History of Present Illness: The patient is a 62-year-old female, with a history as outlined below, who initially presented to the emergency department on January 26 with complaints of atypical chest pain. The patient was initially scheduled to undergo a left hip arthroplasty this week. On presentation, the patient was noted to be afebrile with elevated blood pressures in the 150s systolic. She was, nevertheless, maintaining appropriate oxygen saturations on room air. Initial CBC was largely unremarkable, as well as chemistry profile. Troponins were negative. The patient subsequently underwent a dobutamine stress echocardiogram on January 26, which was noted to be normal. The patient had been started on medical therapy with Lipitor, which she received on January 26 around 11 AM. During the late afternoon hours, a rapid response team was called, as the patient appeared to be developing angioedema. The patient received Pepcid, epinephrine and IV steroids. However, she continued to deteriorate clinically and had to be intubated emergently by anesthesia at the bedside. Per documentation, the patient did experience a transient episode of pulseless VT, for which ACLS was initiated, with subsequent return of spontaneous circulation. The patient was then transferred to the medical intensive care unit for ongoing management. Overnight, no issues were identified by the nursing staff. The patient's sedation was placed on hold this morning. She is currently awake and appropriately interactive. Although she has done well on spontaneous mode mechanical ventilation, she did not have a significant cuff leak noted this morning. Past Medical History Medical History: Medical History (Last Updated 01/26/18 @ 06:04 by Ino Null MD) Osteoarthritis M19.90 Allergies No Known Allergies Allergy (Verified 11/29/17 11:11) Home Medications: Ambulatory Orders Medication Instructions Recorded Duloxetine HCl 30 mg PO DAILY 06/14/16 Loratadine 10 mg PO DAILY PRN 05/14/17 Meloxicam 15 mg PO DAILY 11/29/17 Surgical History: cholecystectomy, hysterectomy, - - Left hip replacement Psychiatric History: Depression Lives: Alone Smoking Status: Never smoker - *Family History Maternal Family History: Family History (Last Updated 01/26/18 @ 06:09 by Ino Null MD) Father Stomach cancer Heart problem Mother Diabetes History Items: - Paternal Family History: Family History (Last Updated 01/26/18 @ 06:09 by Ino Null MD) Father Stomach cancer Heart problem Mother Diabetes History Items: - Sibling Family History: Family History (Last Updated 01/26/18 @ 06:09 by Ino Null MD) Father Stomach cancer Heart problem Mother Diabetes History Items: - Review of Systems Unable to obtain accurate/complete ROS d/t: Due to current intubation and mechanical ventilation status. Patient Problems: Active and Suspected Problems (Last Updated 01/26/18 @ 06:04 by Ino Null MD) Chest pain (Acute) Depression (Acute) Anaphylactic reaction (Acute) Objective: The patient's most recent lab work, culture data and imaging studies have all been personally reviewed. Sputum cultures currently pending. - Physical Exam General: - - Intubated and mechanically ventilated. Currently tolerating CPAP mode mechanical ventilation. HEENT: Atraumatic, PERRLA, Normocephalic Oral: Moist Mucosa, - - The patient's lower lip remains swollen. Neck: Supple, No Nodes, Trachea Midline Lungs: No rhonchi, No wheeze, No rales, Diminished Cardiovascular: Regular rate, Regular Rhythm, Normal S1, Normal S2, No murmurs Abdomen: Bowel Sounds Present, Soft, Non Tender, Obese Extremities: No clubbing, No cyanosis, No edema Skin: No breakdown Musculoskeletal: No Tenderness to Palpation of Joints or Extremities, No Muscle Wasting Lymphatic: No Cervical, Supraclavicular, or Inguinal Adenopathy Neurological: Neuro grossly intact, - - Alert and following commands appropriately. Vital Signs Temp Pulse Resp BP Pulse Ox 98.3 F 78 16 133/85 H 97 01/27/18 04:00 01/27/18 04:00 01/27/18 04:00 01/27/18 04:00 01/27/18 04:00 Oxygen Flow Rate (L/min) 2 Oxygen Delivery Method Mechanical Ventilator Weight: 204 lb 12.951 oz Body Mass Index (BMI) 37.1 Intake and Output for Last 24 Hours 01/25/18 01/26/18 01/27/18 23:59 23:59 23:59 Intake Total 874.9 / 874.9 Output Total 355 / 355 Balance 519.9 / 519.9 Laboratory Tests Past 24 Hrs 11/08/0801/26/18 01/26/18 08:10 11:08 17:05 WBC RBC Hgb Hct MCV MCH MCHC RDW RDW Differential Plt Count MPV Immature Gran % (Auto) Neut % (Auto) Lymph % (Auto) [place] % (Auto) Eos % (Auto) Baso % (Auto) Absolute Neuts (auto) Absolute Lymphs (auto) Total Counted Differential Comment Specimen Type Sample Site pH Bicarbonate Actual POC Total CO2 Base Excess O2 Saturation O2 % ABG pCO2 ABG pO2 Respiration Rate O2 Delivery Device Minute Volume Vent Mode Tidal Volume POC PEEP Blood Gas Notified Whom Blood Gas Notified Time Sodium 139 Potassium 3.5 Chloride 107 Carbon Dioxide 22.0 Anion Gap 10 BUN 21 H Creatinine 0.84 Estim Creat Clear Calc 54.22 Est GFR (MDRD) Af Amer 88 Est GFR (MDRD) Non-Af 73 BUN/Creatinine Ratio 25.0 H Glucose 200 H Calcium 8.2 L Phosphorus Magnesium 2.6 Total Bilirubin 0.70 AST 71 H ALT 48 Alkaline Phosphatase 100 Troponin I < 0.015 < 0.015 Total Protein 7.3 Albumin 3.2 Globulin 4.1 Albumin/Globulin Ratio 0.8 L TSH 2.30 01/26/18 01/26/18 01/26/18 17:05 17:05 19:06 WBC 23.3 H RBC 3.89 L Hgb 12.6 Hct 38.1 MCV 97.9 MCH 32.4 H MCHC 33.1 RDW 12.4 RDW Differential 43.4 Plt Count 334 MPV 9.9 Immature Gran % (Auto) 0.300 Neut % (Auto) 92.2 H Lymph % (Auto) 4.9 L [place] % (Auto) 2.4 Eos % (Auto) 0.1 Baso % (Auto) 0.1 Absolute Neuts (auto) 21.5 H Absolute Lymphs (auto) 1.14 Total Counted Not Reportable Differential Comment Specimen Type ART Sample Site R Radial pH 7.39 Bicarbonate Actual 26.9 H POC Total CO2 28 Base Excess 2 O2 Saturation 99 O2 % 50 ABG pCO2 44.7 ABG pO2 134 H Respiration Rate 12 O2 Delivery Device Vent Minute Volume 6.00 Vent Mode A-C Tidal Volume 450 POC PEEP 5 Blood Gas Notified Whom ICU Blood Gas Notified Time 1859 Sodium Potassium Chloride Carbon Dioxide Anion Gap BUN Creatinine Estim Creat Clear Calc Est GFR (MDRD) Af Amer Est GFR (MDRD) Non-Af BUN/Creatinine Ratio Glucose Calcium Phosphorus 3.8 Magnesium Total Bilirubin AST ALT Alkaline Phosphatase Troponin I Total Protein Albumin Globulin Albumin/Globulin Ratio TSH 01/27/18 01/27/18 04:15 04:15 WBC 17.5 H RBC 3.77 L Hgb 12.0 Hct 36.7 L MCV 97.3 MCH 31.8 MCHC 32.7 RDW 12.6 RDW Differential 45.0 H Plt Count 311 MPV 10.2 Immature Gran % (Auto) 0.200 Neut % (Auto) 91.1 H Lymph % (Auto) 4.6 L [place] % (Auto) 4.1 Eos % (Auto) 0.0 Baso % (Auto) 0.0 Absolute Neuts (auto) 15.9 H Absolute Lymphs (auto) 0.80 L Total Counted Not Reportable Differential Comment Specimen Type Sample Site pH Bicarbonate Actual POC Total CO2 Base Excess O2 Saturation O2 % ABG pCO2 ABG pO2 Respiration Rate O2 Delivery Device Minute Volume Vent Mode Tidal Volume POC PEEP Blood Gas Notified Whom Blood Gas Notified Time Sodium Cancelled Potassium Cancelled Chloride Cancelled Carbon Dioxide Cancelled Anion Gap Cancelled BUN Cancelled Creatinine Cancelled Estim Creat Clear Calc Cancelled Est GFR (MDRD) Af Amer Cancelled Est GFR (MDRD) Non-Af Cancelled BUN/Creatinine Ratio Cancelled Glucose Cancelled Calcium Cancelled Phosphorus Magnesium Cancelled Total Bilirubin AST ALT Alkaline Phosphatase Troponin I Total Protein Albumin Globulin Albumin/Globulin Ratio TSH Clinical Impression(s) from Imaging Studies Chest X-Ray 01/26/18 04:15 IMPRESSION: Left basilar atelectasis/infiltrate. No focal consolidation is seen. Electronically Signed: Fuentes Estrella at 4:52 EST Tel , Service support , Chest X-Ray 01/26/18 15:19 IMPRESSION: The tip of the endotracheal tube is at the level of the duke. It should be pulled back approximately 2 cm. Stable widening of the superior mediastinum. Gaseous distention of the stomach. Electronically Signed: Arturo Lomeli MD at 15:40 EST Tel [phone], Service support , Chest X-Ray 01/26/18 16:00 IMPRESSION: New right lower lobe airspace disease and mild congestion. Stable prominent superior mediastinum. ET and NG tubes as above. Electronically Signed: Shreyas Mccloud MD at 16:53 EST , Service support , Assessment/Plan Active and Suspected Problems (Last Updated 01/26/18 @ 06:04 by Ino Null MD) Chest pain (Acute) Depression (Acute) Anaphylactic reaction (Acute) RECOMMENDATIONS: 1. Change from scheduled aerosol treatments to PRN 2. Although there is little evidence of clear benefit, will start steroids today. 3. Continue Pepcid. 4. Continue patient on spontaneous mode of mechanical ventilation. 5. Start tube feeds today. 6. Plan for daily paired spontaneous awakening and breathing trials. Check cuff leak each morning. 7. Continue Lovenox for DVT prophylaxis IMPRESSIONS: 1. Acute respiratory failure related to anaphylactic reaction and subsequent development of angioedema The patient's airway became compromised as the consequence of a presumed anaphylactic reaction to her newly started statin. She did require emergent intubation and transient ACLS due to the development of pulseless V. tach. The patient's ventilator requirements are minimal this morning. She is alert and following commands appropriately. Although she did do well on a spontaneous breathing trial, her air leak was minimal with the aerial applicator pilot balloon of her endotracheal tube deflated. Therefore, I would continue the patient on full mechanical ventilatory support, while awaiting improvement in her airway edema. In addition to the aforementioned supportive measures, will continue Pepcid and add IV steroids today. We will plan to repeat a spontaneous breathing trial and reassess the patient's cuff leak in the morning. Would plan to start tube feeds today. 2. Atypical chest pain/transient pulseless VT The patient initially presented to the hospital with complaints of atypical chest pain, for which she underwent a cardiac evaluation, which included negative troponins and normal dobutamine stress echocardiogram. Would aim to maintain the patient's potassium greater than 4 and magnesium greater than 2. 3. Leukocytosis Likely stress reaction from the events that developed yesterday. The patient remains afebrile hemodynamically stable. I see no indication for the initiation of antibiotics. TIME: 45 minutes of critical care time, independent of procedures, was spent addressing the patient's acute respiratory failure, anaphylactic reaction, angioedema, atypical chest pain, leukocytosis, review of all data and collaboration with the care team. ([id number]) Code Visit 9xxxx: [id number] Critical care first hour
[2018-01-27 06:00] LABS: Anion Gap 9 (5-15); BUN 20 mg/dL (7-18); Calcium,Total 8.2 mg/dL (8.5-10.1); Chloride 104 mmol/L (98-107); Creatinine, Serum 0.67 mg/dL (0.55-1.02); EST Glomerular Filtration Rate 95 mL/min (>60); Est Glom Filt Rate - Afr Amer 115 mL/min (>60); Estimated Creatinine Clearance 67.97 ml/min; Glucose 191 mg/dL (74-106); Potassium 3.6 mmol/L (3.5-5.1); Sodium Level 138 mmol/L (136-145)
[2018-01-27] MEDS: Ondansetron 4 MG/2 ML Vial IV (06:41)
--- NOTE | 2018-01-27 07:55 | PCM.PN.HOSP ---
Patient Problems: Active and Suspected Problems (Last Updated 01/26/18 @ 06:04 by Ino Null MD) Chest pain (Acute) Depression (Acute) Anaphylactic reaction (Acute) Subjective: Seen remains on the vent with significant swelling involving the tongue as well as lower lip Diagnostic data reviewed significant for leukocytosis attributed to patient having received steroids Objective: GENERAL:AWAKE ON THE VENT HEENT: Markedly swollen lower lips and tongue EYES; Anicteric, Normal Conjunctiva NECK; supple, normal thyroid, no distended JVD. RESPIRATORY: Diminished to auscultation bilaterally, CARDIOVASCULAR: Regular S1 S2, no audible murmurs GI: soft, non-tender, normoactive bowel sounds, : No Renal angle tenderness; EXTREMITIES: No edema, no clubbing, no cyanosis. MUSCULOSKELETAL: No Joint Tenderness; NEURO: Awake; no lateralizing signs. SKIN: No Rash PSYCH; AWAKE ON THE VENT Vitals/I&O's: Vital Signs Temp Pulse Resp BP Pulse Ox 98.7 F 87 20 H 127/74 H 96 01/27/18 07:00 01/27/18 07:00 01/27/18 07:00 01/27/18 07:00 01/27/18 07:00 Oxygen Flow Rate (L/min) 2 Oxygen Delivery Method CPAP Weight: 92.9 kg Body Mass Index (BMI) 37.1 Intake and Output for Last 24 Hours 01/25/18 01/26/18 01/27/18 23:59 23:59 23:59 Intake Total 874.9 / 874.9 716.7 / 716.7 Output Total 355 / 355 250 / 250 Balance 519.9 / 519.9 466.7 / 466.7 Laboratory Results 01/26/18 08:10: Troponin I < 0.015 01/26/18 11:08: Troponin I < 0.015 01/26/18 17:05: Sodium 139, Potassium 3.5, Chloride 107, Carbon Dioxide 22.0, Anion Gap 10, BUN 21 H, Creatinine 0.84, Estim Creat Clear Calc 54.22, Est GFR (MDRD) Af Amer 88, Est GFR (MDRD) Non-Af 73, BUN/Creatinine Ratio 25.0 H, Glucose 200 H, Calcium 8.2 L, Magnesium 2.6, Total Bilirubin 0.70, AST 71 H, ALT 48, Alkaline Phosphatase 100, Total Protein 7.3, Albumin 3.2, Globulin 4.1, Albumin/Globulin Ratio 0.8 L, TSH 2.30 01/26/18 17:05: WBC 23.3 H, RBC 3.89 L, Hgb 12.6, Hct 38.1, MCV 97.9, MCH 32.4 H, MCHC 33.1, RDW 12.4, RDW Differential 43.4, Plt Count 334, MPV 9.9, Immature Gran % (Auto) 0.300, Neut % (Auto) 92.2 H, Lymph % (Auto) 4.9 L, [place] % (Auto) 2.4, Eos % (Auto) 0.1, Baso % (Auto) 0.1, Absolute Neuts (auto) 21.5 H, Absolute Lymphs (auto) 1.14, Total Counted Not Reportable, Differential Comment 01/26/18 17:05: Phosphorus 3.8 01/26/18 19:06: Specimen Type ART, Sample Site R Radial, pH 7.39, Bicarbonate Actual 26.9 H, POC Total CO2 28, Base Excess 2, O2 Saturation 99, O2 % 50, ABG pCO2 44.7, ABG pO2 134 H, Respiration Rate 12, O2 Delivery Device Vent, Minute Volume 6.00, Vent Mode A-C, Tidal Volume 450, POC PEEP 5, Blood Gas Notified Whom ICU MD, Blood Gas Notified Time 1853 01/27/18 04:15: WBC 17.5 H, RBC 3.77 L, Hgb 12.0, Hct 36.7 L, MCV 97.3, MCH 31.8, MCHC 32.7, RDW 12.6, RDW Differential 45.0 H, Plt Count 311, MPV 10.2, Immature Gran % (Auto) 0.200, Neut % (Auto) 91.1 H, Lymph % (Auto) 4.6 L, [place] % (Auto) 4.1, Eos % (Auto) 0.0, Baso % (Auto) 0.0, Absolute Neuts (auto) 15.9 H, Absolute Lymphs (auto) 0.80 L, Total Counted Not Reportable 01/27/18 04:15: Sodium Cancelled, Potassium Cancelled, Chloride Cancelled, Carbon Dioxide Cancelled, Anion Gap Cancelled, BUN Cancelled, Creatinine Cancelled, Estim Creat Clear Calc Cancelled, Est GFR (MDRD) Af Amer Cancelled, Est GFR (MDRD) Non-Af Cancelled, BUN/Creatinine Ratio Cancelled, Glucose Cancelled, Calcium Cancelled, Magnesium Cancelled 01/27/18 05:30: Sodium 138, Potassium 3.6, Chloride 104, Carbon Dioxide 25.0, Anion Gap 9, BUN 20 H, Creatinine 0.67, Estim Creat Clear Calc 67.97, Est GFR (MDRD) Af Amer 115, Est GFR (MDRD) Non-Af 95, BUN/Creatinine Ratio 30.0 H, Glucose 191 H, Calcium 8.2 L, Magnesium 2.0 Current Medications Acetaminophen (Tylenol) 650 mg PO Q6H PRN PRN PRN Reason: Mild Pain (1-3)/Temp > 100.7 F Last Admin: 01/26/18 11:06 Dose: 650 mg Albuterol Sulfate (Ventolin Aerosols) 2.5 mg INHALATION Q2H PRN PRN PRN Reason: DYSPNEA/WHEEZING/SOB Bisacodyl (Dulcolax) 5 mg PO DAILY PRN PRN PRN Reason: Constipation Chlorhexidine Gluconate () 15 ml PO BID [facility] Last Admin: 01/26/18 21:12 Dose: 15 ml Chlorhexidine Gluconate () 1 each TOPICAL DAILY [facility] Last Admin: 01/27/18 01:33 Dose: 1 each Duloxetine HCl (Cymbalta) 30 mg PO DAILY [facility] Last Admin: 01/26/18 11:04 Dose: 30 mg Enoxaparin Sodium (Lovenox) 40 mg SC DAILY@1000 [facility] Last Admin: 01/26/18 19:21 Dose: Not Given Famotidine 20 mg/ Sodium (Chloride) 10 mls @ 300 mls/hr IV Q12 [facility] Last Admin: 01/26/18 21:13 Dose: 300 mls/hr Propofol (Diprivan) 1,000 mg in 100 mls @ 5.532 mls/hr CONT INF .Q12H [facility] Last Admin: 01/27/18 06:27 Dose: Not Given Dextrose/Sodium Chloride () 1,000 mls @ 100 mls/hr IV .Q10H [facility] Last Admin: 01/27/18 04:16 Dose: 100 mls/hr Potassium Chloride (Kcl 10meq/100ml) 10 meq in 100 mls @ 100 mls/hr IV BOLUS Q1H [facility] Stop: 01/27/18 10:59 Magnesium Hydroxide (Milk Of Magnesia) 30 ml PO DAILY PRN PRN Reason: Constipation Methylprednisolone (Solu-Medrol) 40 mg IV Q6 [facility] Morphine Sulfate () 1 - 2 mg IV Q4H PRN PRN PRN Reason: PAIN Nitroglycerin (Nitrostat) 0.4 mg SUBLINGUAL Q5M PRN PRN Reason: CHEST PAIN Ondansetron HCl (Zofran) 4 mg IV Q8H PRN PRN PRN Reason: NAUSEA Last Admin: 01/27/18 06:41 Dose: 4 mg Sodium Chloride () 5 - 30 ml IV UD PRN PRN Reason: SALINE FLUSH Last Admin: 01/27/18 04:16 Dose: 10 ml Medical Necessity - Tobacco Use Smoking Status: Never smoker Assessment/Plan All Active Problems (Last Updated 01/26/18 @ 06:04 by Ino Null MD) Left shoulder pain (Acute) ? r kidney nodule ct of abd (Acute) Chest pain (Acute) Depression (Acute) Anaphylactic reaction (Acute) 1. Acute hypoxic respiratory failure related to upper airway obstruction related to patient's angioedema patient was intubated by anesthesia using a glide scope subsequently to the intensive care unit consultation was placed to the airplane cover maker. Vent management deferred to pulmonary/critical care 2. Angioedema attributed to patient having received Lipitor patient was administered with Benadryl, Solu-Medrol as well as epinephrine 3. Nonsustained VT and torsades this was aborted with magnesium sulfate as part of patient ACLS protocol 4. Chest pain AR was ruled out with serial cardiac enzymes valuation with a stress echo which was negative for stress-induced ischemia 5. Elevated blood pressure on admission 6. Osteoarthritis 7. DVT prophylaxis SC Lovenox 8. Obesity with BMI of 37.2 Code Visit Inpatient E&M: 18540 [facility] L3
--- NOTE | 2018-01-27 07:59 | PN_ITS ---
Patient Problems: Active and Suspected Problems (Last Updated 01/26/18 @ 06:04 by Ino Null MD) Chest pain (Acute) Depression (Acute) Anaphylactic reaction (Acute) Subjective: Seen remains on the vent with significant swelling involving the tongue as well as lower lip Diagnostic data reviewed significant for leukocytosis attributed to patient having received steroids Objective: GENERAL:AWAKE ON THE VENT HEENT: Markedly swollen lower lips and tongue EYES; Anicteric, Normal Conjunctiva NECK; supple, normal thyroid, no distended JVD. RESPIRATORY: Diminished to auscultation bilaterally, CARDIOVASCULAR: Regular S1 S2, no audible murmurs GI: soft, non-tender, normoactive bowel sounds, : No Renal angle tenderness; EXTREMITIES: No edema, no clubbing, no cyanosis. MUSCULOSKELETAL: No Joint Tenderness; NEURO: Awake; no lateralizing signs. SKIN: No Rash PSYCH; AWAKE ON THE VENT Vitals/I&O's: Vital Signs Temp Pulse Resp BP Pulse Ox 98.7 F 87 20 H 127/74 H 96 01/27/18 07:00 01/27/18 07:00 01/27/18 07:00 01/27/18 07:00 01/27/18 07:00 Oxygen Flow Rate (L/min) 2 Oxygen Delivery Method CPAP Weight: 92.9 kg Body Mass Index (BMI) 37.1 Intake and Output for Last 24 Hours 01/25/18 01/26/18 01/27/18 23:59 23:59 23:59 Intake Total 874.9 / 874.9 716.7 / 716.7 Output Total 355 / 355 250 / 250 Balance 519.9 / 519.9 466.7 / 466.7 Laboratory Results 01/26/18 08:10: Troponin I < 0.015 01/26/18 11:08: Troponin I < 0.015 01/26/18 17:05: Sodium 139, Potassium 3.5, Chloride 107, Carbon Dioxide 22.0, Anion Gap 10, BUN 21 H, Creatinine 0.84, Estim Creat Clear Calc 54.22, Est GFR (MDRD) Af Amer 88, Est GFR (MDRD) Non-Af 73, BUN/Creatinine Ratio 25.0 H, Glucose 200 H, Calcium 8.2 L, Magnesium 2.6, Total Bilirubin 0.70, AST 71 H, ALT 48, Alkaline Phosphatase 100, Total Protein 7.3, Albumin 3.2, Globulin 4.1, Albumin/Globulin Ratio 0.8 L, TSH 2.30 01/26/18 17:05: WBC 23.3 H, RBC 3.89 L, Hgb 12.6, Hct 38.1, MCV 97.9, MCH 32.4 H , MCHC 33.1, RDW 12.4, RDW Differential 43.4, Plt Count 334, MPV 9.9, Immature Gran % (Auto) 0.300, Neut % (Auto) 92.2 H, Lymph % (Auto) 4.9 L, [place] % (Auto) 2.4, Eos % (Auto) 0.1, Baso % (Auto) 0.1, Absolute Neuts (auto) 21.5 H, Absolute Lymphs (auto) 1.14, Total Counted Not Reportable, Differential Comment 01/26/18 17:05: Phosphorus 3.8 01/26/18 19:06: Specimen Type ART, Sample Site R Radial, pH 7.39, Bicarbonate Actual 26.9 H, POC Total CO2 28, Base Excess 2, O2 Saturation 99, O2 % 50, ABG pCO2 44.7, ABG pO2 134 H, Respiration Rate 12, O2 Delivery Device Vent, Minute Volume 6.00, Vent Mode A-C, Tidal Volume 450, POC PEEP 5, Blood Gas Notified Whom ICU MD, Blood Gas Notified Time 1852 01/27/18 04:15: WBC 17.5 H, RBC 3.77 L, Hgb 12.0, Hct 36.7 L, MCV 97.3, MCH 31.8, MCHC 32.7, RDW 12.6, RDW Differential 45.0 H, Plt Count 311, MPV 10.2, Immature Gran % (Auto) 0.200, Neut % (Auto) 91.1 H, Lymph % (Auto) 4.6 L, [place] % (Auto) 4.1, Eos % (Auto) 0.0, Baso % (Auto) 0.0, Absolute Neuts (auto) 15.9 H, Absolute Lymphs (auto) 0.80 L, Total Counted Not Reportable 01/27/18 04:15: Sodium Cancelled, Potassium Cancelled, Chloride Cancelled, Carbon Dioxide Cancelled, Anion Gap Cancelled, BUN Cancelled, Creatinine Cancelled, Estim Creat Clear Calc Cancelled, Est GFR (MDRD) Af Amer Cancelled, Est GFR (MDRD) Non-Af Cancelled, BUN/Creatinine Ratio Cancelled, Glucose Cance lled, Calcium Cancelled, Magnesium Cancelled 01/27/18 05:30: Sodium 138, Potassium 3.6, Chloride 104, Carbon Dioxide 25.0, Anion Gap 9, BUN 20 H, Creatinine 0.67, Estim Creat Clear Calc 67.97, Est GFR (MDRD) Af Amer 115, Est GFR (MDRD) Non-Af 95, BUN/Creatinine Ratio 30.0 H, Glucose 191 H, Calcium 8.2 L, Magnesium 2.0 Current Medications Acetaminophen (Tylenol) 650 mg PO Q6H PRN PRN PRN Reason: Mild Pain (1-3)/Temp > 100.7 F Last Admin: 01/26/18 11:06 Dose: 650 mg Albuterol Sulfate (Ventolin Aerosols) 2.5 mg INHALATION Q2H PRN PRN PRN Reason: DYSPNEA/WHEEZING/SOB Bisacodyl (Dulcolax) 5 mg PO DAILY PRN PRN PRN Reason: Constipation Chlorhexidine Gluconate () 15 ml PO BID [facility] Last Admin: 01/26/18 21:12 Dose: 15 ml Chlorhexidine Gluconate () 1 each TOPICAL DAILY [facility] Last Admin: 01/27/18 01:33 Dose: 1 each Duloxetine HCl (Cymbalta) 30 mg PO DAILY [facility] Last Admin: 01/26/18 11:04 Dose: 30 mg Enoxaparin Sodium (Lovenox) 40 mg SC DAILY@1000 [facility] Last Admin: 01/26/18 19:21 Dose: Not Given Famotidine 20 mg/ Sodium (Chloride) 10 mls @ 300 mls/hr IV Q12 [facility] Last Admin: 01/26/18 21:13 Dose: 300 mls/hr Propofol (Diprivan) 1,000 mg in 100 mls @ 5.532 mls/hr CONT INF .Q12H [facility] Last Admin: 01/27/18 06:27 Dose: Not Given Dextrose/Sodium Chloride () 1,000 mls @ 100 mls/hr IV .Q10H [facility] Last Admin: 01/27/18 04:16 Dose: 100 mls/hr Potassium Chloride (Kcl 10meq/100ml) 10 meq in 100 mls @ 100 mls/hr IV BOLUS Q1H BEST Stop: 01/27/18 10:59 Magnesium Hydroxide (Milk Of Magnesia) 30 ml PO DAILY PRN PRN Reason: Constipation Methylprednisolone (Solu-Medrol) 40 mg IV Q6 BEST Morphine Sulfate () 1 - 2 mg IV Q4H PRN PRN PRN Reason: PAIN Nitroglycerin (Nitrostat) 0.4 mg SUBLINGUAL Q5M PRN PRN Reason: CHEST PAIN Ondansetron HCl (Zofran) 4 mg IV Q8H PRN PRN PRN Reason: NAUSEA Last Admin: 01/27/18 06:41 Dose: 4 mg Sodium Chloride () 5 - 30 ml IV UD PRN PRN Reason: SALINE FLUSH Last Admin: 01/27/18 04:16 Dose: 10 ml Medical Necessity - Tobacco Use Smoking Status: Never smoker Assessment/Plan All Active Problems (Last Updated 01/26/18 @ 06:04 by Ino Null MD) Left shoulder pain (Acute) ? r kidney nodule ct of abd (Acute) Chest pain (Acute) Depression (Acute) Anaphylactic reaction (Acute) 1. Acute hypoxic respiratory failure related to upper airway obstruction related to patient's angioedema patient was intubated by anesthesia using a glide scope subsequently to the intensive care unit consultation was placed to the building maintenance engineer. Vent management deferred to pulmonary/critical care 2. Angioedema attributed to patient having received Lipitor patient was administered with Benadryl, Solu-Medrol as well as epinephrine 3. Nonsustained VT and torsades this was aborted with magnesium sulfate as part of patient ACLS protocol 4. Chest pain [place] was ruled out with serial cardiac enzymes valuation with a stress echo which was negative for stress-induced ischemia 5. Elevated blood pressure on admission 6. Osteoarthritis 7. DVT prophylaxis SC Lovenox 8. Obesity with BMI of 37.2 Code Visit Inpatient E&M: 44182 [facility] Hosp L3
[2018-01-27] MEDS: 0.9% NaCl IVPB Med Flush (250 mL) 15 ML IV (08:30)
[2018-01-27] MEDS: Chlorhexidine 15 ML PO ×2 (09:20→22:20)
[2018-01-27] MEDS: Enoxaparin 40 MG/0.4 ML Syringe SC (09:21)
[2018-01-27] MEDS: DiphenhydrAMINE 50 MG/ML Syringe IV ×4 (09:31→23:56)
[2018-01-27] MEDS: Vital AF 1.2 Cal Liquid 1,000 ML 60 ML GT (12:16)
--- NOTE | 2018-01-27 15:48 | CHAPLAIN ---
Type of Pastoral Visit ___ Initial Visit _x__ Follow-up Visit ___ On-call Visit ___ General Patient Visit ___ Spiritual Assessment ___ Family Conference ___ Bereavement ___ Rapid Response ___ Code Blue ___ Other (describe below) Pastoral Care Referral From _x__ Patient ___ Family ___ Nurse ___ Physician ___ Storekeeper Helper ___ Proof Clerk ___ Other (describe below) Sacrament/Intervention ___ Active listening ___ Anointing ___ Jain ___ Bereavement ___ Communion ___ Mariola exploration ___ ___ Life review _x__ Prayer ___ Reconciliation ___ Sacrament of Sick _x__ Supportive presence ___ Wedding ___ Other (describe below) Pastoral Comments
[2018-01-28] VITALS (35 sets, daily range): BP systolic 84–147; BP diastolic 57–91; PULSE 77–112; RESP 12–29; TEMP 37.1–37.9; O2SAT 90–97
[2018-01-28] MEDS: CHLORHEXIDINE GLUC 2% CLOTH 1 EACH TOWELETTE TOPICAL ×2 (03:28→10:19)
[2018-01-28] MEDS: DiphenhydrAMINE 50 MG/ML Syringe IV (05:29)
--- NOTE | 2018-01-28 06:48 | PCM.PN.INT ---
Subjective: The patient was seen and examined at the bedside this morning. Events from the last 24 hours have been reviewed. The patient is currently afebrile, hemodynamically stable and maintaining appropriate oxygen saturations with an FiO2 requirement of 30%. The patient has been maintained on Pepcid, steroids and Benadryl over the last 24 hours. Her swelling has gone down this morning. The patient passed her spontaneous breathing trial and does have a notable air leak noted with deflation of the endotracheal state pilot balloon. The patient is alert and following commands appropriately. Therefore, under my direct supervision, the patient was successfully extubated to supplemental oxygen via nasal cannula this morning. No stridor was noted post extubation. Objective: The patient's most recent lab work, culture data and imaging studies have all been personally reviewed. General: Alert, Cooperative, - - Intubated mechanically ventilated. Currently tolerating CPAP mode mechanical ventilation. HEENT: Atraumatic, PERRLA, Normocephalic Oral: No Gingival or Mucosal Lesions/ Ulcerations, - - Endotracheal and OG tubes remain in place. There is been interval improvement in the degree of oropharyngeal swelling noted previously. Neck: Supple, No Nodes, Trachea Midline Lungs: No rhonchi, No wheeze, No rales, Diminished Cardiovascular: Regular rate, Regular Rhythm, Normal S1, Normal S2, No murmurs Abdomen: Bowel Sounds Present, Soft, Non Tender, Non-Distended Extremities: No clubbing, No cyanosis, No edema Skin: No breakdown Musculoskeletal: No Tenderness to Palpation of Joints or Extremities, No Muscle Wasting Lymphatic: No Cervical, Supraclavicular, or Inguinal Adenopathy Neurological: Cranial nerves II-XII grossly intact, Neuro grossly intact, - - Alert and following commands appropriately. Vital Signs Temp Pulse Resp BP Pulse Ox 37.7 C H 97 28 H 138/67 H 94 01/28/18 06:45 01/28/18 06:45 01/28/18 06:45 01/28/18 06:45 01/28/18 06:45 Oxygen Flow Rate (L/min) 2 Oxygen Delivery Method Nasal Cannula Weight: 200 lb 13.458 oz Body Mass Index (BMI) 37.1 Intake and Output for Last 24 Hours 01/26/18 01/27/18 01/28/18 23:59 23:59 23:59 Intake Total 874.9 / 874.9 2208.7 / 2208.7 357 / 357 Output Total 355 / 355 2350 / 2350 950 / 950 Balance 519.9 / 519.9 -141.3 / -141.3 -593 / -593 Labs (Last 48 Hours) 01/26/18 01/26/18 01/26/18 08:10 11:08 17:05 WBC RBC Hgb Hct MCV MCH MCHC RDW RDW Differential Plt Count MPV Immature Gran % (Auto) Neut % (Auto) Lymph % (Auto) [place] % (Auto) Eos % (Auto) Baso % (Auto) Absolute Neuts (auto) Absolute Lymphs (auto) Total Counted Differential Comment Specimen Type Sample Site pH Bicarbonate Actual POC Total CO2 Base Excess O2 Saturation O2 % ABG pCO2 ABG pO2 Respiration Rate O2 Delivery Device Minute Volume Vent Mode Tidal Volume POC PEEP Blood Gas Notified Whom Blood Gas Notified Time Sodium 139 Potassium 3.5 Chloride 107 Carbon Dioxide 22.0 Anion Gap 10 BUN 21 H Creatinine 0.84 Estim Creat Clear Calc 54.22 Est GFR (MDRD) Af Amer 88 Est GFR (MDRD) Non-Af 73 BUN/Creatinine Ratio 25.0 H Glucose 200 H Calcium 8.2 L Phosphorus Magnesium 2.6 Total Bilirubin 0.70 AST 71 H ALT 48 Alkaline Phosphatase 100 Troponin I < 0.015 < 0.015 Total Protein 7.3 Albumin 3.2 Globulin 4.1 Albumin/Globulin Ratio 0.8 L TSH 2.30 01/26/18 01/26/18 01/26/18 17:05 17:05 19:06 WBC 23.3 H RBC 3.89 L Hgb 12.6 Hct 38.1 MCV 97.9 MCH 32.4 H MCHC 33.1 RDW 12.4 RDW Differential 43.4 Plt Count 334 MPV 9.9 Immature Gran % (Auto) 0.300 Neut % (Auto) 92.2 H Lymph % (Auto) 4.9 L [place] % (Auto) 2.4 Eos % (Auto) 0.1 Baso % (Auto) 0.1 Absolute Neuts (auto) 21.5 H Absolute Lymphs (auto) 1.14 Total Counted Not Reportable Differential Comment Specimen Type ART Sample Site R Radial pH 7.39 Bicarbonate Actual 26.9 H POC Total CO2 28 Base Excess 2 O2 Saturation 99 O2 % 50 ABG pCO2 44.7 ABG pO2 134 H Respiration Rate 12 O2 Delivery Device Vent Minute Volume 6.00 Vent Mode A-C Tidal Volume 450 POC PEEP 5 Blood Gas Notified Whom ICU MD Blood Gas Notified Time 1859 Sodium Potassium Chloride Carbon Dioxide Anion Gap BUN Creatinine Estim Creat Clear Calc Est GFR (MDRD) Af Amer Est GFR (MDRD) Non-Af BUN/Creatinine Ratio Glucose Calcium Phosphorus 3.8 Magnesium Total Bilirubin AST ALT Alkaline Phosphatase Troponin I Total Protein Albumin Globulin Albumin/Globulin Ratio [facility] 01/27/18 01/27/18 01/27/18 04:15 04:15 05:30 WBC 17.5 H RBC 3.77 L Hgb 12.0 Hct 36.7 L MCV 97.3 MCH 31.8 MCHC 32.7 RDW 12.6 RDW Differential 45.0 H Plt Count 311 MPV 10.2 Immature Gran % (Auto) 0.200 Neut % (Auto) 91.1 H Lymph % (Auto) 4.6 L [place] % (Auto) 4.1 Eos % (Auto) 0.0 Baso % (Auto) 0.0 Absolute Neuts (auto) 15.9 H Absolute Lymphs (auto) 0.80 L Total Counted Not Reportable Differential Comment Specimen Type Sample Site pH Bicarbonate Actual POC Total CO2 Base Excess O2 Saturation O2 % ABG pCO2 ABG pO2 Respiration Rate O2 Delivery Device Minute Volume Vent Mode Tidal Volume POC PEEP Blood Gas Notified Whom Blood Gas Notified Time Sodium Cancelled 138 Potassium Cancelled 3.6 Chloride Cancelled 104 Carbon Dioxide Cancelled 25.0 Anion Gap Cancelled 9 BUN Cancelled 20 H Creatinine Cancelled 0.67 Estim Creat Clear Calc Cancelled 67.97 Est GFR (MDRD) Af Amer Cancelled 115 Est GFR (MDRD) Non-Af Cancelled 95 BUN/Creatinine Ratio Cancelled 30.0 H Glucose Cancelled 191 H Calcium Cancelled 8.2 L Phosphorus Magnesium Cancelled 2.0 Total Bilirubin AST ALT Alkaline Phosphatase Troponin I Total Protein Albumin Globulin Albumin/Globulin Ratio TSH Microbiology 01/27/18 04:00 Sputum, Induced/Lukens Gram Stain - Final Clinical Impression(s) from Imaging Studies Chest X-Ray 01/26/18 04:15 IMPRESSION: Left basilar atelectasis/infiltrate. No focal consolidation is seen. Electronically Signed: Fuentes Estrella, at 4:52 EST Tel , Service support , Chest X-Ray 01/26/18 15:19 IMPRESSION: The tip of the endotracheal tube is at the level of the duke. It should be pulled back approximately 2 cm. Stable widening of the superior mediastinum. Gaseous distention of the stomach. Electronically Signed: Arturo Lomeli MD at 15:40 EST Tel [phone], Service support , Chest X-Ray 01/26/18 16:00 IMPRESSION: New right lower lobe airspace disease and mild congestion. Stable prominent superior mediastinum. ET and NG tubes as above. Electronically Signed: Shreyas Mccloud MD at 16:53 EST , Service support , Medical Necessity - Tobacco Use Smoking Status: Never smoker Assessment/Plan All Active Problems (Last Updated 01/26/18 @ 06:04 by Ino Null MD) Left shoulder pain (Acute) ? r kidney nodule ct of abd (Acute) Chest pain (Acute) Depression (Acute) Anaphylactic reaction (Acute) RECOMMENDATIONS: 1. Proceed with a trial of extubation this morning. 2. Continue Pepcid and steroids for now. Benadryl will be discontinued. 3. Wean supplemental oxygen to maintain saturations at or above 90%. 4. Encourage incentive spirometer use. 5. Perform bedside swallow evaluation and advance diet accordingly. 6. Continue Lovenox for DVT prophylaxis IMPRESSIONS: 1. Acute respiratory failure related to anaphylactic reaction and subsequent development of angioedema The patient's airway became compromised as the consequence of a presumed anaphylactic reaction to her newly started statin. She did require emergent intubation and transient ACLS due to the development of pulseless V. tach. The patient's oropharyngeal edema decreased with the utilization of Pepcid, Benadryl and IV steroids. She was able to be successfully extubated from the ventilator on the morning of January 28. At this time, we will plan to wean her supplemental oxygen requirement to maintain saturations at or above 90%. We will continue Pepcid and steroids for now, but will discontinue Benadryl. Encourage incentive spirometer use and mobilize patient as tolerated. Bedside swallow evaluation can be completed and diet advanced accordingly. 2. Atypical chest pain/transient pulseless VT Resolved. The patient initially presented to the hospital with complaints of atypical chest pain, for which she underwent a cardiac evaluation, which included negative troponins and normal dobutamine stress echocardiogram. Would aim to maintain the patient's potassium greater than 4 and magnesium greater than 2. 3. Leukocytosis Likely stress reaction from the events that developed yesterday. The patient remains afebrile and hemodynamically stable. I see no indication for the initiation of antibiotics. TIME: 35 minutes of critical care time, independent of procedures, was spent addressing the patient's acute respiratory failure, anaphylactic reaction, angioedema, atypical chest pain, leukocytosis, review of all data and collaboration with the care team. ([id number]) Code Visit [id number]: [id number] Critical care first hour
--- NOTE | 2018-01-28 06:53 | PN_ITS ---
Subjective: The patient was seen and examined at the bedside this morning. Events from the last 24 hours have been reviewed. The patient is currently afebrile, hemodynamically stable and maintaining appropriate oxygen saturations with an FiO2 requirement of 30%. The patient has been maintained on Pepcid, steroids and Benadryl over the last 24 hours. Her swelling has gone down this morning. The patient passed her spontaneous breathing trial and does have a notable air leak noted with deflation of the endotracheal [facility] balloon. The patient is alert and following commands appropriately. Therefore, under my direct supervision, the patient was successfully extubated to supplemental oxygen via nasal cannula this morning. No stridor was noted post extubation. Objective: The patient's most recent lab work, culture data and imaging studies have all been personally reviewed. General: Alert, Cooperative, - - Intubated mechanically ventilated. Currently tolerating CPAP mode mechanical ventilation. HEENT: Atraumatic, PERRLA, Normocephalic Oral: No Gingival or Mucosal Lesions/ Ulcerations, - - Endotracheal and OG tubes remain in place. There is been interval improvement in the degree of oropharyngeal swelling noted previously. Neck: Supple, No Nodes, Trachea Midline Lungs: No rhonchi, No wheeze, No rales, Diminished Cardiovascular: Regular rate, Regular Rhythm, Normal S1, Normal S2, No murmurs Abdomen: Bowel Sounds Present, Soft, Non Tender, Non-Distended Extremities: No clubbing, No cyanosis, No edema Skin: No breakdown Musculoskeletal: No Tenderness to Palpation of Joints or Extremities, No Muscle Wasting Lymphatic: No Cervical, Supraclavicular, or Inguinal Adenopathy Neurological: Cranial nerves II-XII grossly intact, Neuro grossly intact, - - Alert and following commands appropriately. Vital Signs Temp Pulse Resp BP Pulse Ox 37.7 C H 97 28 H 138/67 H 94 01/28/18 06:45 01/28/18 06:45 01/28/18 06:45 01/28/18 06:45 01/28/18 06:45 Oxygen Flow Rate (L/min) 2 Oxygen Delivery Method Nasal Cannula Weight: 200 lb 13.458 oz Body Mass Index (BMI) 37.1 Intake and Output for Last 24 Hours 01/26/18 01/27/18 01/28/18 23:59 23:59 23:59 Intake Total 874.9 / 874.9 2208.7 / 2208.7 357 / 357 Output Total 355 / 355 2350 / 2350 950 / 950 Balance 519.9 / 519.9 -141.3 / -141.3 -593 / -593 Labs (Last 48 Hours) 01/26/18 01/26/18 01/26/18 08:10 11:08 17:05 WBC RBC Hgb Hct MCV MCH MCHC RDW RDW Differential Plt Count MPV Immature Gran % (Auto) Neut % (Auto) Lymph % (Auto) Union % (Auto) Eos % (Auto) Baso % (Auto) Absolute Neuts (auto) Absolute Lymphs (auto) Total Counted Differential Comment Specimen Type Sample Site pH Bicarbonate Actual POC Total CO2 Base Excess O2 Saturation O2 % ABG pCO2 ABG pO2 Respiration Rate O2 Delivery Device Minute Volume Vent Mode Tidal Volume POC PEEP Blood Gas Notified Whom Blood Gas Notified Time Sodium 139 Potassium 3.5 Chloride 107 Carbon Dioxide 22.0 Anion Gap 10 BUN 21 H Creatinine 0.84 Estim Creat Clear Calc 54.22 Est GFR (MDRD) Af Amer 88 Est GFR (MDRD) Non-Af 73 BUN/Creatinine Ratio 25.0 H Glucose 200 H Calcium 8.2 L Phosphorus Magnesium 2.6 Total Bilirubin 0.70 AST 71 H ALT 48 Alkaline Phosphatase 100 Troponin I < 0.015 < 0.015 Total Protein 7.3 Albumin 3.2 Globulin 4.1 Albumin/Globulin Ratio 0.8 L TSH 2.30 01/26/18 01/26/18 01/26/18 17:05 17:05 19:06 WBC 23.3 H RBC 3.89 L Hgb 12.6 Hct 38.1 MCV 97.9 MCH 32.4 H MCHC 33.1 RDW 12.4 RDW Differential 43.4 Plt Count 334 MPV 9.9 Immature Gran % (Auto) 0.300 Neut % (Auto) 92.2 H Lymph % (Auto) 4.9 L Union % (Auto) 2.4 Eos % (Auto) 0.1 Baso % (Auto) 0.1 Absolute Neuts (auto) 21.5 H Absolute Lymphs (auto) 1.14 Total Counted Not Reportable Differential Comment Specimen Type ART Sample Site R Radial pH 7.39 Bicarbonate Actual 26.9 H POC Total CO2 28 Base Excess 2 O2 Saturation 99 O2 % 50 ABG pCO2 44.7 ABG pO2 134 H Respiration Rate 12 O2 Delivery Device Vent Minute Volume 6.00 Vent Mode A-C Tidal Volume 450 POC PEEP 5 Blood Gas Notified Whom ICU MD Blood Gas Notified Time 1859 Sodium Potassium Chloride Carbon Dioxide Anion Gap BUN Creatinine Estim Creat Clear Calc Est GFR (MDRD) Af Amer Est GFR (MDRD) Non-Af BUN/Creatinine Ratio Glucose Calcium Phosphorus 3.8 Magnesium Total Bilirubin AST ALT Alkaline Phosphatase Troponin I Total Protein Albumin Globulin Albumin/Globulin Ratio [facility] 01/27/18 01/27/18 01/27/18 04:15 04:15 05:30 WBC 17.5 H RBC 3.77 L Hgb 12.0 Hct 36.7 L MCV 97.3 MCH 31.8 MCHC 32.7 RDW 12.6 RDW Differential 45.0 H Plt Count 311 MPV 10.2 Immature Gran % (Auto) 0.200 Neut % (Auto) 91.1 H Lymph % (Auto) 4.6 L Union % (Auto) 4.1 Eos % (Auto) 0.0 Baso % (Auto) 0.0 Absolute Neuts (auto) 15.9 H Absolute Lymphs (auto) 0.80 L Total Counted Not Reportable Differential Comment Specimen Type Sample Site pH Bicarbonate Actual POC Total CO2 Base Excess O2 Saturation O2 % ABG pCO2 ABG pO2 Respiration Rate O2 Delivery Device Minute Volume Vent Mode Tidal Volume POC PEEP Blood Gas Notified Whom Blood Gas Notified Time Sodium Cancelled 138 Potassium Cancelled 3.6 Chloride Cancelled 104 Carbon Dioxide Cancelled 25.0 Anion Gap Cancelled 9 BUN Cancelled 20 H Creatinine Cancelled 0.67 Estim Creat Clear Calc Cancelled 67.97 Est GFR (MDRD) Af Amer Cancelled 115 Est GFR (MDRD) Non-Af Cancelled 95 BUN/Creatinine Ratio Cancelled 30.0 H Glucose Cancelled 191 H Calcium Cancelled 8.2 L Phosphorus Magnesium Cancelled 2.0 Total Bilirubin AST ALT Alkaline Phosphatase Troponin I Total Protein Albumin Globulin Albumin/Globulin Ratio TSH Microbiology 01/27/18 04:00 Sputum, Induced/Lukens Gram Stain - Final Clinical Impression(s) from Imaging Studies Chest X-Ray 01/26/18 04:15 IMPRESSION: Left basilar atelectasis/infiltrate. No focal consolidation is seen. Electronically Signed: Fuentes Estrella, at 4:52 EST Tel , Service support , Chest X-Ray 01/26/18 15:19 IMPRESSION: The tip of the endotracheal tube is at the level of the duke. It should be pulled back approximately 2 cm. Stable widening of the superior mediastinum. Gaseous distention of the stomach. Electronically Signed: Arturo Lomeli MD at 15:40 EST Tel [phone], Service support , Chest X-Ray 01/26/18 16:00 IMPRESSION: New right lower lobe airspace disease and mild congestion. Stable prominent superior mediastinum. ET and NG tubes as above. Electronically Signed: Shreyas Mccloud MD at 16:53 EST , Service support , Medical Necessity - Tobacco Use Smoking Status: Never smoker Assessment/Plan All Active Problems (Last Updated 01/26/18 @ 06:04 by Ino Null MD) Left shoulder pain (Acute) ? r kidney nodule ct of abd (Acute) Chest pain (Acute) Depression (Acute) Anaphylactic reaction (Acute) RECOMMENDATIONS: 1. Proceed with a trial of extubation this morning. 2. Continue Pepcid and steroids for now. Benadryl will be discontinued. 3. Wean supplemental oxygen to maintain saturations at or above 90%. 4. Encourage incentive spirometer use. 5. Perform bedside swallow evaluation and advance diet accordingly. 6. Continue Lovenox for DVT prophylaxis IMPRESSIONS: 1. Acute respiratory failure related to anaphylactic reaction and subsequent development of angioedema The patient's airway became compromised as the consequence of a presumed anaphylactic reaction to her newly started statin. She did require emergent intubation and transient ACLS due to the development of pulseless V. tach. The patient's oropharyngeal edema decreased with the utilization of Pepcid, Benadryl and IV steroids. She was able to be successfully extubated from the ventilator on the morning of January 28. At this time, we will plan to wean her supplemental oxygen requirement to maintain saturations at or above 90%. We will continue Pepcid and steroids for now, but will discontinue Benadryl. Encourage incentive spirometer use and mobilize patient as tolerated. Bedside swallow evaluation can be completed and diet advanced accordingly. 2. Atypical chest pain/transient pulseless VT Resolved. The patient initially presented to the hospital with complaints of atypical chest pain, for which she underwent a cardiac evaluation, which included negative troponins and normal dobutamine stress echocardiogram. Would aim to maintain the patient's potassium greater than 4 and magnesium greater than 2. 3. Leukocytosis Likely stress reaction from the events that developed yesterday. The patient remains afebrile and hemodynamically stable. I see no indication for the initiation of antibiotics. TIME: 35 minutes of critical care time, independent of procedures, was spent addressing the patient's acute respiratory failure, anaphylactic reaction, ang ioedema, atypical chest pain, leukocytosis, review of all data and collaboration with the care team. ([id number]) Code Visit 9xxxx: [id number] Critical care first hour
[2018-01-28 07:20] LABS: Absolute Lymphocyte Count 0.77 X10^3/ul (0.83-4.51); Absolute Neutrophil Count 16.7 X10^3/uL (2.0-7.7); Hematocrit 38.8 % (37-47); Lymphocyte # 0.77 X10^3/ul (4.0); Lymphocyte % 4.1 % (19-41); Mean Corp Hgb Conc 33.5 g/gl (32-36); Mean Corpuscular Hgb 33.2 pg (27.0-32.0); Mean Platelet Vol. 10.2 fl (6.2-12.0); Monocyte# 1.09 X10^3/uL; Monocyte% 5.9 % (0-10); Neutrophil # 16.67 X10^3/uL (2.7-7.7); Neutrophil % 89.8 % (47-70); Platelet Count 357 K/mm3 (150-450); RBC Distribution Width CV 12.4 % (11.6-14.6); RBC Distribution Width SD 44.1 fl (35.1-43.9); Red Blood Count 3.92 M/mm3 (4.2-5.4); White Blood Count 18.6 K/mm3 (4.4-11.0)
--- NOTE | 2018-01-28 07:23 | PN_ITS ---
Patient Problems: Active and Suspected Problems (Last Updated 01/26/18 @ 06:04 by Ino Null MD) Chest pain (Acute) Depression (Acute) Anaphylactic reaction (Acute) Subjective: She was successfully weaned off the ventilator this a.m. She is awake communicating the swelling involving her left significantly down however she still has some swelling involving the tongue. Her leukocytosis remains attributed to patient's having received steroids Objective: GENERAL: Cooperative HEENT: Markedly swollen lower lips and tongue EYES; Anicteric, Normal Conjunctiva NECK; supple, normal thyroid, no distended JVD. RESPIRATORY: Diminished to auscultation bilaterally, CARDIOVASCULAR: Regular S1 S2, no audible murmurs GI: soft, non-tender, normoactive bowel sounds, : No Renal angle tenderness; EXTREMITIES: No edema, no clubbing, no cyanosis. MUSCULOSKELETAL: No Joint Tenderness; NEURO: Awake; no lateralizing signs. SKIN: No Rash PSYCH; appropriate affect Vitals/I&O's: Vital Signs Temp Pulse Resp BP Pulse Ox 99.7 F H 94 13 115/68 94 01/28/18 07:00 01/28/18 07:00 01/28/18 07:00 01/28/18 07:00 01/28/18 07:00 Oxygen Flow Rate (L/min) 2 Oxygen Delivery Method Nasal Cannula Weight: 91.1 kg Body Mass Index (BMI) 37.1 Intake and Output for Last 24 Hours 01/26/18 01/27/18 01/28/18 23:59 23:59 23:59 Intake Total 874.9 / 874.9 2208.7 / 2208.7 357 / 357 Output Total 355 / 355 2350 / 2350 950 / 950 Balance 519.9 / 519.9 -141.3 / -141.3 -593 / -593 Microbiology Past 72 Hours 01/27/18 04:00 Sputum, Induced/Lukens Gram Stain - Final Laboratory Results 01/28/18 07:10: WBC Pending, RBC Pending, Hgb Pending, Hct Pending, MCV Pending, MCH Pending, MCHC Pending, RDW Pending, RDW Differential Pending, Plt Count Pending, Neut % (Auto) Pending, Absolute Neuts (auto) Pending, Total Counted Pending 01/28/18 07:10: Sodium Pending, Potassium Pending, Chloride Pending, Carbon Dioxide Pending, Anion Gap Pending, BUN Pending, Creatinine Pending, Est GFR (MDRD) Af Amer Pending, Est GFR (MDRD) Non-Af Pending, BUN/Creatinine Ratio Pending, Glucose Pending, Calcium Pending Current Medications Acetaminophen (Tylenol) 650 mg PO Q6H PRN PRN PRN Reason: Mild Pain (1-3)/Temp > 100.7 F Last Admin: 01/26/18 11:06 Dose: 650 mg Albuterol Sulfate (Ventolin Aerosols) 2.5 mg INHALATION Q2H PRN PRN PRN Reason: DYSPNEA/WHEEZING/SOB Bisacodyl (Dulcolax) 5 mg PO DAILY PRN PRN PRN Reason: Constipation Chlorhexidine Gluconate () 15 ml PO BID [facility] Last Admin: 01/27/18 22:20 Dose: 15 ml Chlorhexidine Gluconate () 1 each TOPICAL DAILY [facility] Last Admin: 01/28/18 03:28 Dose: 1 each Duloxetine HCl (Cymbalta) 30 mg PO DAILY [facility] Last Admin: 01/27/18 08:35 Dose: Not Given Enoxaparin Sodium (Lovenox) 40 mg SC DAILY@1000 [facility] Last Admin: 01/27/18 09:21 Dose: 40 mg Famotidine 20 mg/ Sodium (Chloride) 10 mls @ 300 mls/hr IV Q12 [facility] Last Admin: 01/27/18 22:20 Dose: 300 mls/hr Sodium Chloride () 250 mls @ 15 mls/hr IV .[id number] PRN PRN Reason: SALINE FLUSH Magnesium Hydroxide (Milk Of Magnesia) 30 ml PO DAILY PRN PRN Reason: Constipation Methylprednisolone (Solu-Medrol) 40 mg IV Q6 [facility] Last Admin: 01/28/18 05:29 Dose: 40 mg Ondansetron HCl (Zofran) 4 mg IV Q8H PRN PRN PRN Reason: NAUSEA Last Admin: 01/27/18 06:41 Dose: 4 mg Sodium Chloride () 5 - 30 ml IV UD PRN PRN Reason: SALINE FLUSH Last Admin: 01/27/18 23:56 Dose: 20 ml Sodium Chloride () 5 - 30 ml IV UD PRN PRN Reason: SALINE FLUSH Medical Necessity - Tobacco Use Smoking Status: Never smoker Assessment/Plan All Active Problems (Last Updated 01/26/18 @ 06:04 by Ino Null MD) Left shoulder pain (Acute) ? r kidney nodule ct of abd (Acute) Chest pain (Acute) Depression (Acute) Anaphylactic reaction (Acute) 1. Acute hypoxic respiratory failure related to upper airway obstruction related to patient's angioedema patient was intubated by anesthesia using a glide scope subsequently to the intensive care unit consultation was placed to the continuity tester. Vent management deferred to pulmonary/critical care. Patient was successfully weaned off the vent on the morning of 01/28/2018. 2. Angioedema attributed to patient having received Lipitor patient was administered with Benadryl, Solu-Medrol as well as epinephrine and remains on Benadryl as well as H1 blockers 3. Nonsustained VT and torsades this was aborted with magnesium sulfate as part of patient ACLS protocol 4. Chest pain SC was ruled out with serial cardiac enzymes valuation with a stress echo which was negative for stress-induced ischemia 5. Elevated blood pressure on admission; blood pressure has since stabilized 6. Osteoarthritis 7. DVT prophylaxis SC Lovenox 8. Obesity with BMI of 37.2 Code Visit Inpatient E&M: 43401 Subs Hosp L3
[2018-01-28 07:30] LABS: POSITIVE COUNT NO; POSITIVE DIFFERENTIAL NO; POSITIVE MORPHOLOGY NO
[2018-01-28 07:35] LABS: Anion Gap 10 (5-15); BUN 27 mg/dL (7-18); BUN/Creat Ratio 33.8 RATIO (10-20); Calcium,Total 8.9 mg/dL (8.5-10.1); Chloride 105 mmol/L (98-107); EST Glomerular Filtration Rate 77 mL/min (>60); Est Glom Filt Rate - Afr Amer 93 mL/min (>60); Estimated Creatinine Clearance 56.93 ml/min; Glucose 156 mg/dL (74-106); Potassium 4.2 mmol/L (3.5-5.1); Sodium Level 142 mmol/L (136-145)
[2018-01-28] MEDS: 0.9% NaCl Peripheral Flush Adult/Peds IV ×5 (10:19→23:50)
[2018-01-28] MEDS: Enoxaparin 40 MG/0.4 ML Syringe SC (10:20)
[2018-01-28] MEDS: DULoxetine Hcl 30 MG Capsule PO (10:20)
[2018-01-28] MEDS: Meloxicam 15 MG Tablet PO (11:07)
--- NOTE | 2018-01-28 11:41 | CASEMGMT ---
RN CM Assessment Intro role of CM to patient in room. Pt presented to ER with chest pain. Was scheduled for hip replacement today, this has been cancelled. Acute hypoxic resp fail due to angioedema. Was intubated on 01/27/18, extubated today. PCP: [facility]: [facility] Insurance: [employer] for me and [facility] Community Plan Living arrangements: lives independently in apartment. Drives. DME: uses cane, has walker Per PT/OT pt ambulated 80' with wheeled walker. Pt states she does have walker at home to use. Is not interested in Home Health at this time. DC PLAN: Home on dc with friend Alisha. Alisha was in room with pt and verified that pt can go home with her and she will assist pt on dc.
[2018-01-29] VITALS (13 sets, daily range): BP systolic 127–150; BP diastolic 59–80; PULSE 69–91; RESP 12–21; TEMP 36.7–37.2; O2SAT 93–97
[2018-01-29 04:35] LABS: Absolute Lymphocyte Count 0.96 X10^3/ul (0.83-4.51); Absolute Neutrophil Count 14.8 X10^3/uL (2.0-7.7); Eosinophil# 0.01 X10^3/uL; Eosinophils% 0.1 % (0-5); Hemoglobin 12.3 g/dl (12.0-15.0); Lymphocyte # 0.96 X10^3/ul (4.0); Lymphocyte % 5.8 % (19-41); Mean Corp Hgb Conc 32.4 g/gl (32-36); Mean Corpuscular Hgb 32.5 pg (27.0-32.0); Mean Corpuscular Volume 100.3 fL (81-99); Mean Platelet Vol. 10.2 fl (6.2-12.0); Monocyte# 0.68 X10^3/uL; Monocyte% 4.1 % (0-10); Neutrophil # 14.82 X10^3/uL (2.7-7.7); Neutrophil % 89.7 % (47-70); Platelet Count 356 K/mm3 (150-450); RBC Distribution Width CV 12.5 % (11.6-14.6); RBC Distribution Width SD 44.1 fl (35.1-43.9); Red Blood Count 3.79 M/mm3 (4.2-5.4); White Blood Count 16.5 K/mm3 (4.4-11.0)
[2018-01-29 04:37] LABS: POSITIVE COUNT NO; POSITIVE DIFFERENTIAL NO; POSITIVE MORPHOLOGY NO
[2018-01-29 04:53] LABS: Anion Gap 8 (5-15); BUN 43 mg/dL (7-18); Calcium,Total 8.6 mg/dL (8.5-10.1); Chloride 108 mmol/L (98-107); Creatinine, Serum 0.76 mg/dL (0.55-1.02); EST Glomerular Filtration Rate 82 mL/min (>60); Est Glom Filt Rate - Afr Amer 100 mL/min (>60); Estimated Creatinine Clearance 59.92 ml/min; Glucose 159 mg/dL (74-106); Potassium 4.1 mmol/L (3.5-5.1); Sodium Level 143 mmol/L (136-145)
--- NOTE | 2018-01-29 06:17 | NURSING ---
Report to DIEUDONNE Man on PCU. Pt will be going to room 127 via w/c and portable monitor.
--- NOTE | 2018-01-29 06:19 | NURSING ---
Transfer orders have not been written. Attempted to call Dr. Ochoa for same. Unable to reach.
--- NOTE | 2018-01-29 06:41 | PN_ITS ---
Subjective: The patient was seen and examined at the bedside this morning. Events from the last 24 hours have been reviewed. The patient is currently afebrile, hemodynamically stable and maintaining appropriate oxygen saturations on 2 L/min via nasal cannula. No overnight events were noted by the nursing staff. The patient has a pending transfer out of the ICU this morning. Objective: The patient's most recent lab work, culture data and imaging studies have all been personally reviewed. Sputum culture revealed normal respiratory travon. General: Alert, Oriented x3, Cooperative, No apparent distress HEENT: Atraumatic, PERRLA, Normocephalic Oral: Moist Mucosa, No Gingival or Mucosal Lesions/ Ulcerations, - - Oropharyngeal edema has resolved. Neck: Supple, No Nodes, Trachea Midline Lungs: Normal air movement, No rhonchi, No wheeze, No rales Cardiovascular: Regular rate, Regular Rhythm, Normal S1, Normal S2, No murmurs Abdomen: Bowel Sounds Present, Soft, Non Tender Extremities: No clubbing, No cyanosis, No edema Musculoskeletal: No Tenderness to Palpation of Joints or Extremities, No Muscle Wasting Lymphatic: No Cervical, Supraclavicular, or Inguinal Adenopathy Neurological: Cranial nerves II-XII grossly intact, Neuro grossly intact Psych/Mental Status: Alert and oriented to time, place, person, mood and affect Vital Signs Temp Pulse Resp BP Pulse Ox 37.2 C 69 15 145/80 H 95 01/29/18 00:00 01/29/18 06:00 01/29/18 06:00 01/29/18 06:00 01/29/18 06:00 Oxygen Flow Rate (L/min) 2 Oxygen Delivery Method Nasal Cannula Weight: 199 lb 4.766 oz Body Mass Index (BMI) 37.1 Intake and Output for Last 24 Hours 01/27/18 01/28/18 01/29/18 23:59 23:59 23:59 Intake Total 2208.7 / 2208.7 1617 / 1617 240 / 240 Output Total 2350 / 2350 2200 / 2200 350 / 350 Balance -141.3 / -141.3 -583 / -583 -110 / -110 Labs (Last 48 Hours) 01/28/18 01/28/18 01/29/18 07:10 07:10 04:20 WBC 18.6 H 16.5 H RBC 3.92 L 3.79 L Hgb 13.0 12.3 Hct 38.8 38.0 MCV 99.0 100.3 H MCH 33.2 H 32.5 H MCHC 33.5 32.4 RDW 12.4 12.5 RDW Differential 44.1 H 44.1 H Plt Count 357 356 MPV 10.2 10.2 Immature Gran % (Auto) 0.200 0.300 Neut % (Auto) 89.8 H 89.7 H Lymph % (Auto) 4.1 L 5.8 L Fisher % (Auto) 5.9 4.1 Eos % (Auto) 0.0 0.1 Baso % (Auto) 0.0 0.0 Absolute Neuts (auto) 16.7 H 14.8 H Absolute Lymphs (auto) 0.77 L 0.96 Total Counted Not Reportable Not Reportable Sodium 142 Potassium 4.2 Chloride 105 Carbon Dioxide 27.0 Anion Gap 10 BUN 27 H Creatinine 0.80 Estim Creat Clear Calc 56.93 Est GFR (MDRD) Af Amer 93 Est GFR (MDRD) Non-Af 77 BUN/Creatinine Ratio 33.8 H Glucose 156 H Calcium 8.9 01/29/18 04:20 WBC RBC Hgb Hct MCV MCH MCHC RDW RDW Differential Plt Count MPV Immature Gran % (Auto) Neut % (Auto) Lymph % (Auto) Fisher % (Auto) Eos % (Auto) Baso % (Auto) Absolute Neuts (auto) Absolute Lymphs (auto) Total Counted Sodium 143 Potassium 4.1 Chloride 108 H Carbon Dioxide 27.0 Anion Gap 8 BUN 43 H Creatinine 0.76 Estim Creat Clear Calc 59.92 Est GFR (MDRD) Af Amer 100 Est GFR (MDRD) Non-Af 82 BUN/Creatinine Ratio 57.0 H Glucose 159 H Calcium 8.6 Microbiology 01/27/18 04:00 Sputum, Induced/Lukens Gram Stain - Final 01/27/18 04:00 Sputum, Induced/Lukens Respiratory Culture - Preliminary Appears to be normal respiratory travon. Further studies to follow. Clinical Impression(s) from Imaging Studies Chest X-Ray 01/26/18 04:15 IMPRESSION: Left basilar atelectasis/infiltrate. No focal consolidation is seen. Electronically Signed: Fuentes Estrella, at 4:52 EST Tel , Service support , Chest X-Ray 01/26/18 15:19 IMPRESSION: The tip of the endotracheal tube is at the level of the duke. It should be pulled back approximately 2 cm. Stable widening of the superior mediastinum. Gaseous distention of the stomach. Electronically Signed: Arturo Lomeli MD at 15:40 EST Tel [phone], Service support , Chest X-Ray 01/26/18 16:00 IMPRESSION: New right lower lobe airspace disease and mild congestion. Stable prominent superior mediastinum. ET and NG tubes as above. Electronically Signed: Shreyas Mccloud MD at 16:53 EST , Service support , Medical Necessity - Tobacco Use Smoking Status: Never smoker Assessment/Plan All Active Problems (Last Updated 01/26/18 @ 06:04 by Ino Null MD) Left shoulder pain (Acute) ? r kidney nodule ct of abd (Acute) Chest pain (Acute) Depression (Acute) Anaphylactic reaction (Acute) RECOMMENDATIONS: 1. Wean supplemental oxygen to maintain saturations at or above 90%. Encourage incentive spirometer use. 2. Okay to discontinue Pepcid and steroids from my perspective. 3. Continue Lovenox for DVT prophylaxis IMPRESSIONS: 1. Acute respiratory failure related to anaphylactic reaction and subsequent development of angioedema The patient's airway became compromised as the consequence of a presumed anaphylactic reaction to her newly started statin. She did require emergent intubation and transient ACLS due to the development of pulseless V. tach. The patient's oropharyngeal edema decreased with the utilization of Pepcid, Benadryl and IV steroids. She was able to be successfully extubated from the ventilator on the morning of January 28. At this time, we will plan to wean her supplemental oxygen requirement to maintain saturations at or above 90%. 2. Atypical chest pain/transient pulseless VT Resolved. The patient initially presented to the hospital with complaints of atypical chest pain, for which she underwent a cardiac evaluation, which included negative troponins and normal dobutamine stress echocardiogram. Would aim to maintain the patient's potassium greater than 4 and magnesium greater than 2. 3. Leukocytosis Improving. The patient remains afebrile. Likely stress reaction from the events that developed earlier in the hospitalization. I see no indication for the initiation of antibiotics. This note was generated with Spottedation software. It may contain incorrect words, spelling, and punctuation that were not noted in checking the note before signing. DISPOSITION: The patient is medically stable for transfer out of the intensive care unit. Given her lack of ongoing ICU/pulmonary needs, will sign off. Please call with any additional questions. Code Visit Inpatient E&M: 52416 [facility] Hosp L3
[2018-01-29] MEDS: DULoxetine Hcl 30 MG Capsule PO (09:26)
[2018-01-29] MEDS: Enoxaparin 40 MG/0.4 ML Syringe SC (09:26)
[2018-01-29] MEDS: Meloxicam 15 MG Tablet PO (09:26)
[2018-01-29] MEDS: 0.9% NaCl Peripheral Flush Adult/Peds IV (09:30)
--- NOTE | 2018-01-29 10:35 | DCINST_ITS ---
- Discharge Diagnoses Current Active Problems: Current Active and Chronic Problems (Last Updated 01/26/18 @ 06:04 by Ino Null MD) Chest pain (Acute) Depression (Acute) Anaphylactic reaction (Acute) You will use the following diet at home:: No restrictions Allergies/Adverse Reactions: Allergies atorvastatin [From Lipitor] Allergy (Verified 01/27/18 07:26) Anaphylaxis Medications to take at Discharge Duloxetine HCl 30 mg PO DAILY 06/14/16 Loratadine 10 mg PO DAILY PRN 05/14/17 Meloxicam 15 mg PO DAILY 11/29/17 Primary Care Physician: Lucita Washburn [Primary Care Provider] - Test Results: Test results from this visit will be discussed in further detail at your follow- up appointment, if applicable. Please Follow Up With: PRIMARY CARE PHYSCIAN When: IN 5-7 DAYS Proposed Discharge Date: 01/29/18
--- NOTE | 2018-01-29 10:36 | PCM.DC.SUM ---
Discharge Date and Diagnosis - Problem List Patient Problems: Active and Suspected Problems (Last Updated 01/26/18 @ 06:04 by Ino Null MD) Chest pain (Acute) Depression (Acute) Anaphylactic reaction (Acute) Date of Admission: 01/26/18 Date of Discharge: 01/29/18 - Primary Discharge Diagnosis Active and Suspected Problems (Last Updated 01/26/18 @ 06:04 by Ino Null MD) Chest pain (Acute) Depression (Acute) Anaphylactic reaction (Acute) Hospital Course and Treatment Imaging Results: Clinical Impression(s) from Imaging Studies Chest X-Ray 01/26/18 04:15 IMPRESSION: Left basilar atelectasis/infiltrate. No focal consolidation is seen. Electronically Signed: Fuentes Estrella at 4:52 EST Tel , Service support , Chest X-Ray 01/26/18 15:19 IMPRESSION: The tip of the endotracheal tube is at the level of the duek. It should be pulled back approximately 2 cm. Stable widening of the superior mediastinum. Gaseous distention of the stomach. Electronically Signed: Arturo Lomeli MD at 15:40 EST Tel [phone], Service support , Chest X-Ray 01/26/18 16:00 IMPRESSION: New right lower lobe airspace disease and mild congestion. Stable prominent superior mediastinum. ET and NG tubes as above. Electronically Signed: Shreyas Mccloud MD at 16:53 EST , Service support , Operations: None Summary of Care Provided: The patient is a 62 year old F admitted with chest pain. Patient underwent echo which was negative for stress-induced ischemia. Patient apparently did receive Lipitor resulting in patient developing angioedema and subsequently respiratory arrest for which patient was resuscitated using ACLS protocol. Patient was intubated and sent to the ICU extubated once his swelling subsided. 1. Acute hypoxic respiratory failure related to upper airway obstruction related to patient's angioedema patient was intubated by anesthesia using a glide scope subsequently to the intensive care unit consultation was placed to the product safety professional. Vent management deferred to pulmonary/critical care. Patient was successfully weaned off the vent on the morning of 01/28/2018. She was transferred from the ICU to PCU on 01/28/2018 and discharged home on 01/29/2018. She was instructed to follow-up with PCP in 5-7 days. She was also informed about the fact that she is allergic to statins. She was instructed to inform her primary care physician. 2. Angioedema attributed to patient having received Lipitor patient was administered with Benadryl, Solu-Medrol as well as epinephrine and remains on Benadryl as well as H1 blockers 3. Nonsustained VT and torsades this was aborted with magnesium sulfate as part of patient ACLS protocol 4. Chest pain KS was ruled out with serial cardiac enzymes valuation with a stress echo which was negative for stress-induced ischemia 5. Elevated blood pressure on admission; blood pressure has since stabilized 6. Osteoarthritis 7. DVT prophylaxis SC Lovenox 8. Obesity with BMI of 37.2 Patient Problems: Active and Suspected Problems (Last Updated 01/26/18 @ 06:04 by Ino Null MD) Chest pain (Acute) Depression (Acute) Anaphylactic reaction (Acute) - Physical Exam General: Alert HEENT: Atraumatic Neck: Supple Lungs: Clear to auscultation Cardiovascular: Regular rate Neurological: Neuro grossly intact Psych/Mental Status: Normal Affect Vital Signs Temp Pulse Resp BP Pulse Ox 98.1 F 73 16 127/59 H 95 01/29/18 07:03 01/29/18 08:10 01/29/18 07:03 01/29/18 07:03 01/29/18 07:03 Oxygen Flow Rate (L/min) 2 Oxygen Delivery Method Room Air Weight: 90.4 kg Body Mass Index (BMI) 37.1 Intake and Output for Last 24 Hours 01/27/18 01/28/18 01/29/18 23:59 23:59 23:59 Intake Total 2208.7 / 2208.7 1617 / 1617 240 / 240 Output Total 2350 / 2350 2200 / 2200 350 / 350 Balance -141.3 / -141.3 -583 / -583 -110 / -110 Microbiology Past 72 Hours 01/27/18 04:00 Gram Stain - Final Sputum, Induced/Lukens Respiratory Culture - Final Laboratory Tests Past 24 Hrs 01/29/18 01/29/18 04:20 04:20 WBC 16.5 H RBC 3.79 L Hgb 12.3 Hct 38.0 MCV 100.3 H MCH 32.5 H MCHC 32.4 RDW 12.5 RDW Differential 44.1 H Plt Count 356 MPV 10.2 Immature Gran % (Auto) 0.300 Neut % (Auto) 89.7 H Lymph % (Auto) 5.8 L Dyer % (Auto) 4.1 Eos % (Auto) 0.1 Baso % (Auto) 0.0 Absolute Neuts (auto) 14.8 H Absolute Lymphs (auto) 0.96 Total Counted Not Reportable Sodium 143 Potassium 4.1 Chloride 108 H Carbon Dioxide 27.0 Anion Gap 8 BUN 43 H Creatinine 0.76 Estim Creat Clear Calc 59.92 Est GFR (MDRD) Af Amer 100 Est GFR (MDRD) Non-Af 82 BUN/Creatinine Ratio 57.0 H Glucose 159 H Calcium 8.6 Discharge Diet: No Restrictions Home Medications: Medications to take at Discharge Duloxetine HCl 30 mg PO DAILY 06/14/16 Loratadine 10 mg PO DAILY PRN 05/14/17 Meloxicam 15 mg PO DAILY 11/29/17 Primary Care Physician: Lucita Washburn [Primary Care Provider] - Please Follow Up With: PRIMARY CARE PHYSCIAN When: IN 5-7 DAYS Disposition: Home Minutes spent on discharge:: 35 Patient Condition:: Stable Medical Necessity - Tobacco Use Smoking Status: Never smoker Meaningful Use Info Meaningful Use Diagnoses (Choose all that apply): None applicable Code Visit Inpatient E&M: 17025 Disch Hosp
== END 2018-01-29 11:26 | disposition home or self-care (01) | DRG 915 ==
LOC: ED 04:31 → PCU 05:20 → ICU 15:39 → PCU 01-29 06:46
PROVIDERS: Internal Medicine Critical Care Medicine; Admitting Provider Hospitalist; Emergency Provider Emergency Medicine; Referring Provider Nurse Practitioner Family; Visit Provider Internal Medicine
DX: T88.6XXA Anaphylactic reaction due to adverse effect of correct drug or medicament properly administered, initial encounter (principal); J96.01 Acute respiratory failure with hypoxia; I47.2 Ventricular tachycardia; T46.6X5A Adverse effect of antihyperlipidemic and antiarteriosclerotic drugs, initial encounter; Y92.239 Unspecified place in hospital as the place of occurrence of the external cause; Z96.641 Presence of right artificial hip joint; F32.9 Major depressive disorder, single episode, unspecified; T78.3XXA Angioneurotic edema, initial encounter; R07.89 Other chest pain; E66.9 Obesity, unspecified; Z68.37 Body mass index [BMI] 37.0-37.9, adult; M19.90 Unspecified osteoarthritis, unspecified site
CPT/HCPCS: 31720; 36415; 36600; 71045; 80048; 80053; 82803; 83735; 84100; 84443; 84484; 85025; 87070; 87205; 93005; 93017; 93350; 94002; 94003; 94640; 94660; 95831; 97162; 97165; 97530; 97802; 99285; J7030; J7040; J7050; A4216; J2405; J3490; J7799

== ENCOUNTER → 2018-02-23 12:21 | Outpatient (CLI) | payer OTHER, MEDICAID, SELFPAY ==
[2018-02-11 10:57] VITALS: BMI 36.6
[2018-02-23 12:30] VITALS: PULSE 103; PULSE 106; PULSE 107; PULSE 92; PULSE 95; PULSE 97; O2SAT 92; O2SAT 93; O2SAT 94; O2SAT 96; O2SAT 98
--- NOTE | 2018-02-24 08:22 | PCM.PSN.6M ---
PSN 6 Minute Walk Test - 6 Minute Walk Test 6 Minute Walk Test: 6 Minute Walk Test PSN:6-Minute Walk Test Start: 02/23/18 13:29 Freq: Status: Active Protocol: [id number] Document 02/23/18 12:30 [facility] (Rec: 02/23/18 13:52 [facility] [id number]) 6 Minute Walk Test Date Performed 02/23/18 Time Performed 12:30 Height 5 ft 2 in Weight: 204 lb Weight in Pounds 204.[address]: Jinny Rodrigez Assistive device used: Cane Pre-test Oxygen Delivery Method Room Air Pulse Ox (%) 98 Pulse Rate (60-100 beats/min) 92 Dyspnea Liz Scale (0-10) 0.5 Exertion Liz Scale (6-20) 6 1st minute Oxygen Delivery Method Room Air Pulse Ox (%) 96 Pulse Rate (60-100 beats/min) 103 H 2nd minute Oxygen Delivery Method Room Air Pulse Ox (%) 93 Pulse Rate (60-100 beats/min) 95 3rd minute Oxygen Delivery Method Room Air Pulse Ox (%) 93 Pulse Rate (60-100 beats/min) 106 H Reported Symptoms Increased Work of Breathing 4th minute Oxygen Delivery Method Room Air Pulse Ox (%) 92 Pulse Rate (60-100 beats/min) 107 H 5th minute Oxygen Delivery Method Room Air Pulse Ox (%) 94 Pulse Rate (60-100 beats/min) 107 H 6th minute Oxygen Delivery Method Room Air Pulse Ox (%) 93 Pulse Rate (60-100 beats/min) 107 H Post-test Oxygen Delivery Method Room Air Pulse Ox (%) 96 Pulse Rate (60-100 beats/min) 97 Dyspnea Liz Scale (0-10) 4 Exertion Liz Scale (6-20) 14 Reported Symptoms Increased Work of Breathing Full Laps Walked 12 Partial Lap, Number of Tiles Walked 32 Total Distance Walked (ft) 740 - Interpretation Interpretation: The patient ambulated 740 feet over the course of 6 minutes beginning on room air with the use of a cane. Pretesting oxygen saturation was noted to be 98% on room air. With ambulation, the christy oxygen saturation was 92%. This represents a significant exertional oxygen desaturation. - Recommendations Recommendations: There is no indication for the use of supplemental oxygen at this time. However, close interval follow-up is recommended, given the degree of oxygen desaturation noted during this study.
--- OUTSIDE RECORDS SUMMARY | 2018-04-18 18:40 | XMS RPT_ITS ---
:1955 Author Organization OHIP Support Name Relationship Address Phone MIREYA STAT Unavailable [address] + [place] [address] HOLDREN, MATEO Unavailable [address] [place] [address] MIREYA STAT Unavailable [address] + [place] [address] HOLDREN, MATEO Unavailable [address] + [address] [place] [address] MIREYA STAT Unavailable [address] + [place] [address] HOLDREN, MATEO Unavailable [address] + [address] [place] [address] MIREYA STAT Unavailable [address] + [place] [address] HOLDREN, MATEO Unavailable [address] + [address] [place] [address] MIREYA STAT Unavailable [address] + [place] [address] HOLDREN, MATEO Unavailable [address] + [address] [place] [address] MIREYA STAT Unavailable [address] + [place] [address] HOLDREN, MATEO Unavailable [address] + [address] [place] [address] MIREYA STAT Unavailable [address] + [place] [address] HOLDREN, MATEO Unavailable [address] + [address] [place] [address] MIREYA STAT Unavailable [address] + [place] [address] HOLDREN, MATEO Unavailable [address] + [address] [place] [address] MIREYA STAT Unavailable [address] + [place] [address] HOLDREN, MATEO Unavailable [address] [place] [address] MIREYA STAT Unavailable [address] + [place] [address] HOLDREN, MATEO Unavailable [address] [place] [address] MIREYA STAT Unavailable [address] + [place] [address] HOLDREN, MATEO Unavailable [address] + [address] [place] [address] MIREYA STAT Unavailable [address] + [place] [address] HOLDREN, MATEO Unavailable [address] + [address] [place] [address] MIREYA STAT Unavailable [address] + [place] [address] HOLDREN, MATEO Unavailable [address] + [address] [place] [address] MIREYA STAT Unavailable [address] + [place] [address] HOLDREN, MATEO Unavailable [address] + [address] [place] [address] MIREYA STAT Unavailable [address] + [place] [address] HOLDREN, MATEO Unavailable [address] + [address] [place] [address] MIREYA STAT Unavailable [address] + [place] [address] HOLDREN, MATEO Unavailable [address] + [address] [place] [address] HOLDREN, MATEO Unavailable [address] + [address] [place] [address] KIDTO Unavailable [address] + [place] [address] HOLDREN, MATEO Unavailable [address] + [address] [place] [address] [facility] Unavailable [address] + [place] [address] HOLDREN, MATEO Unavailable [address] + [address] [place] [address] [facility] Unavailable [address] + [place] [address] HOLDREN, MATEO Unavailable [address] + [address] [place] [address] [facility] Unavailable [address] + [place] [address] HOLDREN, MATEO Unavailable [address] + [address] [place] [address] [facility] Unavailable [address] + [place] [address] Care Team Providers Name Role Phone ISHAAN GREGORIO Attending Unavailable ISHAAN GREGORIO Referring Unavailable GRACIE CRUZ (DIANA) Referring Unavailable Aaron Ochoa D.O. Attending Unavailable Jinny Rodrigez Referring Unavailable Natalie Greene Attending Unavailable Jefry Childs Primary Care Unavailable Janak Metcalf Attending Unavailable [facility] Unavailable Alex Zendejas Attending Unavailable [facility] Primary [facility] Unavailable Alex Zendejas Attending Unavailable Alex Zendejas Referring Unavailable [facility] Primary [facility] Unavailable Alex Zendejas Admitting Unavailable Alex Zendejas Attending Unavailable Alex Zendejas Referring Unavailable [facility] Primary [facility] Unavailable Perry Márquez Attending Unavailable Alex Zendejas Referring Unavailable [facility] Attending Unavailable [facility] Un[facility] Primary [facility] Unavailable Jake Calabrese Attending Unavailable [facility] Unavailable Natalie Greene Referring Unavailable Ino Null Admitting Unavailable Bird Brizuela Attending Unavailable Aaron Ochoa D.O. Consulting Unavailable Ino Null Admitting Unavailable Ino Null Attending Unavailable Natalie Greene Referring Unavailable [facility] Primary [facility] Unavailable Ino Null Consulting Unavailable Agyepong, Ino Admitting Unavailable KitBird wellington Attending Unavailable Risat ALEJANDRINA, Natalie Referring Unavailable [facility] Unavailable Aaron Ochoa D.O. Consulting Unavailable Bird Brizuela Consulting Unavailable Agyepong, Ino Admitting Unavailable Aaron Ochoa D.O. Attending Unavailable Evens TINOCO, Natalie Referring Unavailable [facility] Primary [facility] Unavailable Aaron Ochoa D.O. Consulting Unavailable Bird Brizuela Consulting Unavailable Agyepong, Ino Admitting Unavailable KittoBird estrada Attending Unavailable Risat ALEJANDRINA, Natalie Referring Unavailable [facility] Primary [facility] Unavailable Aaron Ochoa D.O. Consulting Unavailable Bird Brizuela Consulting Unavailable Agyepong, Ino Admitting Unavailable Aaron Ochoa D.O. Attending Unavailable Evens TINOCO, Natalie Referring Unavailable [facility] Primary [facility] Unavailable Aaron Ochoa D.O. Consulting Unavailable Bird Brizuela Consulting Unavailable Agyepong, Ino Admitting Unavailable Aaron Ochoa D.O. Attending Unavailable Risat ALEJANDRINA, Natalie Referring Unavailable [facility] Primary [facility] Unavailable Aaron Ochoa D.O. Consulting Unavailable Bird Brizuela Consulting Unavailable Agyeponkathryn, Ino Admitting Unavailable KitBird wellington Attending Unavailable Swiderrickt ALEJANDRINA, Natalie Referring Unavailable [facility] Primary [facility] Unavailable Aaron Ochoa D.O. Consulting Unavailable Bird Brizuela Consulting Unavailable Jinny Rodrigez Attending Unavailable [facility] Referring Unavailable Chino Ferrara Attending Unavailable Bird Brizuela Referring Unavailable Jinny Rodrigez Attending Unavailable Rodrigez, Jinny Referring Unavailable [facility] Primary [facility] Unavailable Risat ALEJANDRINA, Natalie Consulting Unavailable Rodrigez, Jinny Attending Unavailable Rodrigez, Jinny Referring Unavailable [facility] Primary Care Unavailable Risat ALEJANDRINA, Natalie Consulting Unavailable PROBLEMS PROBLEMS DATE TYPE CONDITION / CODE ATTENDING STATUS SOURCE 02/23/2018 Unknown R05 - Cough / Rodrigez, Active [place] R05(ICD-10) [facility] Repository 02/11/2018 Unknown Z23 - Encounter for Rodrigez, Active [place] immunization / [facility] Z23(ICD-10) Hospital Repository 02/16/2018 Unknown R07.9 - Chest pain, Josias, Wyatt Active [place] unspecified / Community R07.9(ICD-10) Hospital Repository 01/05/2018 Active Encounter for other NA Active [facility] preprocedural [facility] examination / Repository Z01.818(ICD-10) 12/03/2017 Unknown Z12.31 - Encounter CLINIC, [facility] Active [place] for screening [facility] mammogram for Hospital malignant neoplasm Repository of breast / Z12.31(ICD-10) 11/29/2017 Unknown M70.62 - Jake Calabrese Active [place] Trochanteric [facility] bursitis, left hip Hospital / M70.62(ICD-10) Repository 12/19/2017 Unknown M16.11 - Unilateral Alex Zendejas Active [place] primary [facility] osteoarthritis, Hospital right hip / Repository M16.11(ICD-10) 04/02/2017 Unknown M25.569 - Pain in Janak Metcalf Active [place] unspecified knee / Community M25.569(ICD-10) Hospital Repository PROCEDURES PROCEDURES No Procedure Records FoundRESULTS RESULTS PULMONARY FUNCTION Observed: 03/06/2018 Status: F Source: [place] REPORT COMP 6:02 AM [facility] REPOSITORY [facility] Pulmonary Services/Neurology [address] [place] [address] MR#: [id number] Acct: [id number] Name: LESLIE DAVIS Rep #: [id number] : 1955 62 From: Jaime Cortes MD Referring Dr: Jinny Rodrigez LOCUM TENENS Status: REG CLI Ordering Dr: Date: Location: PSN Sex: F C COMPLETE PULMONARY FUNCTION TEST INTERPRETATION Brief HPI: Patient is a 62 year old female, currently under the care of Dr. Ochoa, who presents to [facility] for complete pulmonary function tests secondary to diagnosis of cough. Respiratory therapist reports good effort and reproducible results. Interpretation: Forced expiration spirometry shows no large airways obstructive ventilatory defect with an FEV1 of 101% predicted. There is no significant bronchodilator response by strict ATS criteria. Spirograms are of good quality and plateau normally. The respiratory flow volume loop shows a normal pattern. Lung volumes by body plethysmography show a normal total lung capacity at 4.58 L, 103% predicted. All other lung volumes are within normal limits. Diffusion capacity by carbon monoxide is decreased at 63% predicted. The airway resistance is normal. No previous pulmonary function tests were available for review. Impression: Isolated reduction diffusion capacity consistent with a possible pulmonary vascular disorder. 03/06/18 0602 <Electronically signed by Jaime Cortes MD> Date Jaime Cortes MD CC: Jaime Cortes MD; Jinny Rodrigez; [facility] Date Dictated: 03/05/18942 Date Transcribed: 03/05/18942 Armament Mechanic: ELIO Signed 6 MINUTE WALK TEST Observed: 02/24/2018 Status: F Source: [place] 8:24 AM [facility] REPOSITORY [facility] Pulmonary Services/Neurology [facility] [place] [address] MR#: [id number] Acct: [id number] Name: LESLIE DAVIS Rep #: [id number] : 1955 62 From: Aaron Ochoa DO Referring Dr: Jinny Rodrigez NP Date: Ordering Dr: Sex: F C Location: PSN PSN 6 Minute Walk Test - 6 Minute Walk Test 6 Minute Walk Test: 6 Minute Walk Test PSN:6-Minute Walk Test Start: 02/23/18 13:29 Freq: Status: Active Protocol: RESP.6MINW Document 02/23/18 12:30 [facility] (Rec: 02/23/18 13:52 [facility] [id number]) 6 Minute Walk Test Date Performed 02/23/18 Time Performed 12:30 Height 5 ft 2 in Weight: 204 lb Weight in Pounds 204.[address]: Jinny Rodrigez Assistive device used: Cane Pre-test Oxygen Delivery Method Room Air Pulse Ox (%) 98 Pulse Rate (60-100 beats/min) 92 Dyspnea Liz Scale (0-10) 0.5 Exertion Liz Scale (6-20) 6 1st minute Oxygen Delivery Method Room Air Pulse Ox (%) 96 Pulse Rate (60-100 beats/min) 103 H 2nd minute Oxygen Delivery Method Room Air Pulse Ox (%) 93 Pulse Rate (60-100 beats/min) 95 3rd minute Oxygen Delivery Method Room Air Pulse Ox (%) 93 Pulse Rate (60-100 beats/min) 106 H Reported Symptoms Increased Work of Breathing 4th minute Oxygen Delivery Method Room Air Pulse Ox (%) 92 Pulse Rate (60-100 beats/min) 107 H 5th minute Oxygen Delivery Method Room Air Pulse Ox (%) 94 Pulse Rate (60-100 beats/min) 107 H 6th minute Oxygen Delivery Method Room Air Pulse Ox (%) 93 Pulse Rate (60-100 beats/min) 107 H Post-test Oxygen Delivery Method Room Air Pulse Ox (%) 96 Pulse Rate (60-100 beats/min) 97 Dyspnea Liz Scale (0-10) 4 Exertion Liz Scale (6-20) 14 Reported Symptoms Increased Work of Breathing Full Laps Walked 12 Partial Lap, Number of Tiles Walked 32 Total Distance Walked (ft) 740 - Interpretation Interpretation: The patient ambulated 740 feet over the course of 6 minutes beginning on room air with the use of a cane. Pretesting oxygen saturation was noted to be 98% on room air. With ambulation, the christy oxygen saturation was 92%. This represents a significant exertional oxygen desaturation. - Recommendations Recommendations: There is no indication for the use of supplemental oxygen at this time. However, close interval follow-up is recommended, given the degree of oxygen desaturation noted during this study. 02/24/18823 <Electronically signed by Aaron Ochoa DO> Date Aaron Ochoa DO CC: Date Dictated: 02/24/18821 Date Transcribed: 02/24/18821 Armament Mechanic: Aaron Ochoa DO Signed PULMONARY VISIT REPORT Observed: 02/11/2018 Status: F Source: [place] 4:25 PM [facility] REPOSITORY Pulmonary Medicine [address] [place] [address] OFFICE VISIT Date of Service: 02/11/18 MR#: [id number] Acct: [id number] Name: LESLIE DAVIS Rep #: [id number] : 1955 Provider: Jinny Rodrigez Age/Sex: 62/F Location: [facility] Status: Signed Assessment AND Plan 1. Cough R05 Plan Plan to further evaluate cough with a biopsy in the office today. We will need to complete a pulmonary function test to identify if any response to bronchodilators. Providing patient with influenza vaccination today. No initiation of inhalers until PFTs can be reviewed. Follow-up in approximately [address] Ochoa to discuss test results and continue to develop a plan. Orders Orders: Medications Discontinued: Flucelvax Quad 9839-6602 (PF) (flu vac qs 2018(4 yr up60 mcg (0.5 mL) IM ONCE 1 mL 0RF NS )CD(PF)) Discontinued Reason: Office Medication lino s been Documented as given 2. Anaphylaxis, subsequent encounter T78.2XXD Plan We will evaluate for possible exertional hypoxia with a walking stress test. Supplemental oxygen will be ordered if indicated. Follow-up with Dr. Ochoa in 6 weeks, at which time of plan to be developed after test results have been reviewed. Plan Detail Other Orders Orders: Other Medications New: Discontinued: Flucelvax Quad 9195-8454 (PF) (flu vac qs 2018(4 yr60 mcg (0.5 mL) IM ONCE 1 mL 0RF NS Z23 up)CD(PF)) Discontinued Reason: Office Medicat ion has been Documented as given Follow Up 6 Weeks (DMB) HPI Hospital FU: Chief Complaint: Shortness of breath on exertion HPI Comments Details: This is a 62 year old very pleasant F, currently under the care of Pita Fontanez, here to follow up after a recent hospitalization at [facility], from January 26 - January 29 for anaphylactic reaction from Lipitor. The hospital stay was complicated by temporary support on a ventilator. 17 pages of hospital documentation was reviewed, and found to be significant for chest x-ray completed on January 26 showing left basilar atelectasis/infiltrate, repeat chest x-ray same day showed endotracheal tube placement. She was safely extubated in the morning of January 28. Today, she presents to the office ambulatory, with the use of a cane and currently on room air. Patient reports that she is not fully back to baseline since her hospital discharge. She continues to complain of shortness of breath on exertion, chest tightness and occasional wheezing. She reports a dry cough but denies any sputum production or hemoptysis. She reports some hoarseness since the extubation. She states that the cough was present prior to her difficulties with airway but has worsened since the ventilator. She is currently using Flonase, denies any medication side effects such as epistaxis. She is not currently on any inhalers. She has never had pulmonary function test completed. She has never been a smoker, denies any diagnosis of asthma or COPD. Intake Vital Signs02/11/18 Height 5 ft 2 in 02/11/18 Weight: 200 lb Intake Visit Reasons: Hospital FU Family Protection Specialist Required: No Accompanied by: Self Is patient in pain?: No Allergies Evpqutl-Ohq-Zsk Reductase Inhibitor Allergy (Severe, Verified 02/11/18 10:59) Anaphylaxis atorvastatin [From Lipitor] Allergy (Verified 02/11/18 10:57) Anaphylaxis Medications Loratadine 10 mg PO DAILY PRN 05/14/17 [History Confirmed 02/11/18] cholecalciferol (vitamin D3) 1,000 unit capsule 1,000 unit PO DAILY 02/10/18 [History Confirmed 02/11/18] fluticasone 50 mcg/actuation nasal spray,suspension 2 spray INTRANASAL DAILY 02/10/18 [History Confirmed 02/11/18] meloxicam 15 mg tablet 7.5 mg PO BID tab 02/10/18 [History Confirmed 02/11/18] multivitamin tablet 1 tab PO DAILY 02/10/18 [History Confirmed 02/11/18] duloxetine 30 mg capsule,delayed release 30 mg PO DAILY 02/11/18 [History Confirmed 02/11/18] PFSH Medical History Left shoulder pain (Acute) ? r kidney nodule ct of abd (Acute) Chest pain (Acute) Depression (Acute) Anaphylactic reaction (Acute) Kidney stone (Acute) Left rotator cuff tear (Chronic) Osteoarthritis (Chronic) varicose veins (Chronic) Surgical History H/O: hysterectomy (Resolved) History of hip replacement (Resolved) Hx of cholecystectomy (Resolved) Family History Father Stomach cancer Heart problem Mother Diabetes Brother Diabetes Sister Breast cancer Social History housing: apartment current occupational status: employed pets and animals: No Smoking Status: Never smoker second hand exposure: No alcohol intake: never substance use type: does not use Review of Systems Const CONSTITUTIONAL: Negative anorexia, body ache, chills, daytime sleepiness, fever(s), night sweats, oral thrush, stops breathing during sleep, weight loss, sleeping in chair, fatigue, weight loss, weight gain, frequent colds, seasonal allergies, other, headache(s) or orthopnea EETM Ear Nose Throat Mouth: Positive hearing normal; negative hard of hearing, hoarseness, dry mouth in morning, change in vision, itchy eyes, eye pain, swallowing Difficulty, ear pain, nose bleed, headache(s), mouth pain, nasal congestion, nasal discharge, post nasal drip, sinus pain, sinus pressure, sore throat or other Cardio Cardiovascular: Negative chest pain, chest pain at rest, chest pain with activity, irregular heart rhythm, edema, shortness of breath when lying down, palpitations, murmur or other Resp Respiratory: Positive as per HPI, shortness of breath shortness of breath: Positive with activity, cough cough: Positive non-productive and chest tightness; negative pain with cough, wheezing, chest congestion, pain on inspiration, inhalers, increase use of rescue inhalers, snoring, apnea or other Gastro Gastrointestional: Negative bloody stools, change in appetite, difficulty swallowing, reflux, hematemesis, melena stool, loose stool, constipation or other Genitourinary: Negative blood in urine, nocturia, pain with urination or other Musc Musculoskeletal: Negative body pain, back pain, neck pain or other Skin/Breast Skin/Breast: Negative dry skin, itching, rash, unusual bruising, breast lump or other Neuro Neurological: Negative restless legs, confusion, weakness or other Psych Psychocological: Negative abnormal sleep pattern, anxiety, thoughts of hurting self/others, hopelessness or other Lymph Lymphatic: Negative easy bleeding, easy bruising, swollen lymph nodes or other Exam Const Constitutional: Positive conversant, cooperative, in no acute respiratory distress, healthy appearing, well developed, good hygiene, well nourished and obese Head Head: Positive normocephalic and atraumatic; negative cyanosis of lips/distal nose Eyes Eye: Positive clear conjunctiva; negative scleral abnormality or nystagmus Ears Ear: Positive hearing normal and external ears normal; negative hard of hearing Nose Nose: Positive external nose normal and no nasal discharge; negative epistaxis Mouth Mouth: Positive oral mucosae normal, no lesions, good dentition and posterior oropharynx is adequate; negative post nasal drip, malodorous breath or oral thrush present Mallampati Score: I: Mallampati Score Neck Neck: Positive normal visual inspection, full ROM and trachea midline; negative lymphadenopathy, JVD or tender Chest Wall Chest: Positive normal inspection of the chest and symmetric chest movement; negative increased A/P diameter Resp lung sounds: Positive good air exchange, wheezes, normal expiratory time and normal respiratory effort; negative diminished, rhonchi, rales or dullness to percussion Cardio Cardiac: Positive regular rate, regular rhythm, S1 normal and S2 normal; negative murmur GI GI: Positive normal to inspection and obese; negative distended Genitourinary: Positive deferred Musc Musculoskeletal: Positive steady gait, ROM normal and using an assistive device for ambulation; negative kyphosis or scoliosis Skin Pulmonary Skin Exam: Positive intact; negative rash Pulses Pulse: Yes pulses normal x4 extremities Extremities Extremities: Yes capillary refill normal, No clubbing, No cyanosis, No edema Neuro Neurologic: Yes conversant, Yes no focal neuro deficits, Yes normal concentration, Yes understands questions, Yes cooperative, Yes normal cognition, Yes normal coordination Lymph Lymphatic: No lymphadenopathy, No tenderness, No cervical adenopathy Psych Appearance: Positive grossly normal, eye contact and well kempt Mental Status: Positive mental status grossly normal Mood: Positive congruent mood Affect: Positive normal affect Office Procedures NIOX NIOX Result NIOX: 13 Office Meds Flucelvax Quad [id number] (PF) Performing Provider: LEONEL Beltran Administered by: Tabby Avina on 02/11/18 11:47 Dose Route Admin Location Lot Number Expiration Date NDC Furniture Decals Inspector 60 mcg IM Left deltoid [id number] 08/22/18 55420-206-44 SEQIRUS Coding Level of Care Code Off vis,est,level 4 Diagnoses Cough R05 Anaphylaxis, subsequent encounter T78.2XXD Encounter type: subsequent encounter 02/11/18 1625 <Electronically signed by Jinny CASTANEDA> Date Jinny Rodrigez LOCUM TENENS-C Latasharadhaer Signature: Date (if applicable) CC: [facility] 12 LEAD ELECTROCARDIOGRAM Observed: 01/29/2018 Status: F Source: [place] 4:02 PM [facility] REPOSITORY [facility] Cardiovascular Services [address] [place] [address] 12 Lead EKG 01/26/18 0804 MR#: [id number] Acct: [id number] Name: LESLIE DAVIS Rep #: [id number] : 1955 62 From: Chino Ferrara MD Attending Dr: Bird Brizuela MD Status: DIS IN Ordering Dr: Ino Null MD Date: 01/26/18 Location: [facility] Sex: F C Admitted: 01/26/18 Test Reason : CP REPEAT Blood Pressure : / mmHG Vent. Rate : 073 BPM Atrial Rate : 073 BPM P-R Int : 148 ms QRS Dur : 080 ms QT Int : 398 ms P-R-T Axes : 040 051 032 degrees QTc Int : 438 ms Normal sinus rhythm Normal ECG When compared with ECG of 26-JAN-2018 04:16, MANUAL COMPARISON REQUIRED, DATA IS UNCONFIRMED Confirmed by JOSIAS ARGUETA, CHINO ([id number]), supervising editor trailer EMELYN ZENDEJAS ([id number]) on 01/29/2018 4:02:17 PM Referred By: Natalie Horner Confirmed By:CHINO FERRARA MD 01/29/18 1602 Date Chino Ferrara MD CC: Bird Brizuela MD; Natalie TINOCO; Ino Null MD; [facility] Signed DISCHARGE SUMMARY Observed: 01/29/2018 Status: F Source: [place] 10:41 AM [facility] REPOSITORY [facility] Medical Records Department [address] [place] [address] Discharge Summary 01/29/18 1036 MR#: [id number] Acct: [id number] Name: LESLIE DVAIS Rep #: [id number] : 1955 62 From: Bird Brizuela MD PCP: [facility] Status: ADM IN Y Location: [place] [address] Discharge Date and Diagnosis - Problem List Patient Problems: Active and Suspected Problems (Last Updated 01/26/18 @ 06:04 by Ino Null MD) Chest pain (Acute) Depression (Acute) Anaphylactic reaction (Acute) Date of Admission: 01/26/18 Date of Discharge: 01/29/18 - Primary Discharge Diagnosis Active and Suspected Problems (Last Updated 01/26/18 @ 06:04 by Ino Null MD) Chest pain (Acute) Depression (Acute) Anaphylactic reaction (Acute) Hospital Course and Treatment Imaging Results: Clinical Impression(s) from Imaging Studies Chest X-Ray 01/26/18 04:15 IMPRESSION: Left basilar atelectasis/infiltrate. No focal consolidation is seen. Electronically Signed: Fuentes Estrella at 4:52 EST Tel , Service support , Chest X-Ray 01/26/18 15:19 IMPRESSION: The tip of the endotracheal tube is at the level of the duke. It should be pulled back approximately 2 cm. Stable widening of the superior mediastinum. Gaseous distention of the stomach. Electronically Signed: Arturo Lomeli MD at 15:40 EST Tel [phone], Service support , Chest X-Ray 01/26/18 16:00 IMPRESSION: New right lower lobe airspace disease and mild congestion. Stable prominent superior mediastinum. ET and NG tubes as above. Electronically Signed: Shreyas Mccloud MD at 16:53 EST , Service support , Operations: None Summary of Care Provided: The patient is a 62 year old F admitted with chest pain. Patient underwent echo which was negative for stress-induced ischemia. Patient apparently did receive Lipitor resulting in patient developing angioedema and subsequently respiratory arrest for which patient was resuscitated using ACLS protocol. Patient was intubated and sent to the ICU extubated once his swelling subsided. 1. Acute hypoxic respiratory failure related to upper airway obstruction related to patient's angioedema patient was intubated by anesthesia using a glide scope subsequently to the intensive care unit consultation was placed to the director foundation. Vent management deferred to pulmonary/critical care. Patient was successfully weaned off the vent on the morning of 01/28/2018. She was transferred from the ICU to PCU on 01/28/2018 and discharged home on 01/29/2018. She was instructed to follow-up with PCP in 5-7 days. She was also informed about the fact that she is allergic to statins. She was instructed to inform her primary care physician. 2. Angioedema attributed to patient having received Lipitor patient was administered with Benadryl, Solu-Medrol as well as epinephrine and remains on Benadryl as well as H1 blockers 3. Nonsustained VT and torsades this was aborted with magnesium sulfate as part of patient ACLS protocol 4. Chest pain WI was ruled out with serial cardiac enzymes valuation with a stress echo which was negative for stress-induced ischemia 5. Elevated blood pressure on admission; blood pressure has since stabilized 6. Osteoarthritis 7. DVT prophylaxis SC Lovenox 8. Obesity with BMI of 37.2 Patient Problems: Active and Suspected Problems (Last Updated 01/26/18 @ 06:04 by Ino Null MD) Chest pain (Acute) Depression (Acute) Anaphylactic reaction (Acute) - Physical Exam General: Alert HEENT: Atraumatic Neck: Supple Lungs: Clear to auscultation Cardiovascular: Regular rate Neurological: Neuro grossly intact Psych/Mental Status: Normal Affect Vital Signs Temp Pulse Resp BP Pulse Ox 98.1 F 73 16 127/59 H 95 01/29/18 07:03 01/29/18 08:10 01/29/18 07:03 01/29/18 07:03 01/29/18 07:03 Oxygen Flow Rate (L/min) 2 Oxygen Delivery Method Room Air Weight: 90.4 kg Body Mass Index (BMI) 37.1 Intake and Output for Last 24 Hours Microbiology Past 72 Hours 01/27/18 04:00 Gram Stain - Final Sputum, Induced/Lukens Respiratory Culture - Final Laboratory Tests Past 24 Hrs WBC 16.5 H RBC 3.79 L Hgb 12.3 Hct 38.0 MCV 100.3 H MCH 32.5 H MCHC 32.4 RDW 12.5 Discharge Diet: No Restrictions Home Medications: Medications to take at Discharge Duloxetine HCl 30 mg PO DAILY 06/14/16 Loratadine 10 mg PO DAILY PRN 05/14/17 Meloxicam 15 mg PO DAILY 11/29/17 Primary Care Physician: Kasi Washburn [Primary Care Provider] - Please Follow Up With: PRIMARY CARE PHYSCIAN When: IN 5-7 DAYS Disposition: Home Minutes spent on discharge:: 35 Patient Condition:: Stable Medical Necessity - Tobacco Use Smoking Status: Never smoker Meaningful Use Info Meaningful Use Diagnoses (Choose all that apply): None applicable Code Visit Inpatient E AND M: 65995 Disch Hosp 01/29/18 1041 <Electronically signed by Bird Brizuela MD> Date Bird Brizuela MD Cosigner Signature (if applicable): Date CC: Bird Brizuela MD; KASI ORNELAS Signed DISCHARGE INSTRUCTION Observed: 01/29/2018 Status: F Source: [place] 10:35 AM [facility] [place] REPOSITORY [facility] Medical Records Department [address] [place] [address] Instructions for Home/Discharge Instructions 01/29/18 1034 MR#: [id number] Acct: [id number] Name: LESLIE DAVIS Rep #: [id number] : 1955 62 From: Bird Brizuela MD PCP: KASI ORNELAS Status: ADM IN - Discharge Diagnoses Current Active Problems: Current Active and Chronic Problems (Last Updated 01/26/18 @ 06:04 by Ino Null MD) Chest pain (Acute) Depression (Acute) Anaphylactic reaction (Acute) You will use the following diet at home:: No restrictions Allergies/Adverse Reactions: Allergies atorvastatin [From Lipitor] Allergy (Verified 01/27/18 07:26) Anaphylaxis Medications to take at Discharge Duloxetine HCl 30 mg PO DAILY 06/14/16 Loratadine 10 mg PO DAILY PRN 05/14/17 Meloxicam 15 mg PO DAILY 11/29/17 Primary Care Physician: [facility],Kasi Ramos [Primary Care Provider] - Test Results: Test results from this visit will be discussed in further detail at your follow-up appointment, if applicable. Please Follow Up With: PRIMARY CARE PHYSCIAN When: IN 5-7 DAYS Proposed Discharge Date: 01/29/18 01/29/18 1035 <Electronically signed by Bird Brizuela MD> Date Bird Brizuela MD CC: Aaron Ochoa D.O.; KASI RAMOS [facility] CBC W/DIFF, AUTOMATED Collected: 01/29/2018 Status: F Source: [place] 4:20 AM [facility] [place] REPOSITORY TYPE CODE TESTS RESULT OUT OF RANGE REFERENCE UNITS LAB L100.1000 4.4-11.0 K/mm3 High WBC 16.5 LAB L100.1200 4.2-5.4 M/mm3 Low RBC 3.79 LAB L100.1300 12.0-15.0 g/dl Normal HGB 12.3 LAB L100.1400 37-47 % Normal HCT 38.0 LAB L100.1500 81-99 fL High MCV 100.3 LAB L100.1600 27.0-32.0 pg High MCH 32.5 LAB L100.1700 32-36 g/gl Normal MCHC 32.4 LAB L100.1810 11.6-14.6 % Normal RDW CV 12.5 LAB L100.1820 35.1-43.9 fl High RDW SD 44.1 LAB L100.1900 150-450 K/mm3 Normal PLT 356 LAB L100.2000 6.2-12.0 fl Normal MPV 10.2 LAB L100.2100 47-70 % High NEUT% 89.7 LAB L100.2200 19-41 % Low LY% 5.8 LAB L100.2300 0-10 % Normal MONO% 4.1 LAB L100.2400 0-5 % Normal EO% 0.1 LAB L100.2500 0-1 % Normal BASO% 0.0 LAB L100.2550 0.0-0.9 % Normal IM GRAN % 0.300 Result Comment: IG% - Immature Granulocytes (promyelocytes, myelocytes and metamyelocytes) > 1% indicates that a LEFT SHIFT is Present. LAB L100.2620 2.0-7.7 X10 3/uL High Absolute Neut 14.8 LAB L100.2720 0.83-4.51 X10 3/ul Normal Absolute Lymph 0.96 Performed By: #### L100.0100 #### [facility] [address] [place], [address] BASIC METABOLIC Collected: 01/29/2018 Status: F Source: [place] PROFILE (BMP) 4:20 AM [facility] [place] REPOSITORY TYPE CODE TESTS RESULT OUT OF RANGE REFERENCE UNITS LAB L501.0100 74-106 mg/dL High GLU 159 Result Comment: Fasting Glucose result greater than or equal to 126 mg/dL suggests DIABETES MELLITUS per A.D.A. criteria. Please note revised GLUCOSE reference range effective 2017. LAB L501.1000 7-18 mg/dL High BUN 43 LAB L501.1100 0.55-1.02 mg/dL Normal CREAT,SERUM 0.76 Result Comment: The validity of the calculated GFR AND GFRAA in patients over 70 years has not been determined. Clinical correlation is essential. LAB L501.1110 >60 mL/min Normal EST GFR 82 Result Comment: Non- GFR Calc LAB L501.1115 >60 mL/min Normal EST GFR - AA 100 Result Comment: GFR Calc LAB L501.1255 ml/min Normal Estimated CRCL 59.92 LAB L501.1300 10-20 RATIO High BUN/CRE 57.0 LAB L501.2200 8.5-10 mg/dL Normal .1 CA 8.6 LAB L501.5300 136-14 mmol/L Normal 5 NA 143 LAB L501.5600 3.5-5. mmol/L Normal 1 K 4.1 LAB L501.5900 98-107 mmol/L High CL 108 LAB L501.6100 21.0-3 mmol/L Normal 2.0 CO2 27.0 LAB L501.6200 5-15 Normal GAP 8 Performed By: #### L500.2500 #### [facility] [address] [place], [place], [address] CBC W/DIFF, AUTOMATED Collected: 01/28/2018 Status: F Source: [place] 7:10 AM [facility] [place] REPOSITORY TYPE CODE TESTS RESULT OUT OF RANGE REFERENCE UNITS LAB L100.1000 4.4-11.0 K/mm3 High WBC 18.6 LAB L100.1200 4.2-5.4 M/mm3 Low RBC 3.92 LAB L100.1300 12.0-15.0 g/dl Normal HGB 13.0 LAB L100.1400 37-47 % Normal HCT 38.8 LAB L100.1500 81-99 fL Normal MCV 99.0 LAB L100.1600 27.0-32.0 pg High MCH 33.2 LAB L100.1700 32-36 g/gl Normal MCHC 33.5 LAB L100.1810 11.6-14.6 % Normal RDW CV 12.4 LAB L100.1820 35.1-43.9 fl High RDW SD 44.1 LAB L100.1900 150-450 K/mm3 Normal PLT 357 LAB L100.2000 6.2-12.0 fl Normal MPV 10.2 LAB L100.2100 47-70 % High NEUT% 89.8 LAB L100.2200 19-41 % Low LY% 4.1 LAB L100.2300 0-10 % Normal MONO% 5.9 LAB L100.2400 0-5 % Normal EO% 0.0 LAB L100.2500 0-1 % Normal BASO% 0.0 LAB L100.2550 0.0-0.9 % Normal IM GRAN % 0.200 Result Comment: IG% - Immature Granulocytes (promyelocytes, myelocytes and metamyelocytes) > 1% indicates that a LEFT SHIFT is Present. LAB L100.2620 2.0-7.7 X10 3/uL High Absolute Neut 16.7 LAB L100.2720 0.83-4.51 X10 3/ul Low Absolute Lymph 0.77 Performed By: #### L100.0100 #### [facility] [address] [place], [address] BASIC METABOLIC Collected: 01/28/2018 Status: F Source: [place] PROFILE ([facility]) 7:10 AM [facility] [place] REPOSITORY TYPE CODE TESTS RESULT OUT OF RANGE REFERENCE UNITS LAB L501.0100 74-106 mg/dL High GLU 156 Result Comment: Fasting Glucose result greater than or equal to 126 mg/dL suggests DIABETES MELLITUS per A.D.A. criteria. Please note revised GLUCOSE reference range effective 2017. LAB L501.1000 7-18 mg/dL High BUN 27 LAB L501.1100 0.55-1.02 mg/dL Normal CREAT,SERUM 0.80 Result Comment: The validity of the calculated GFR AND GFRAA in patients over 70 years has not been determined. Clinical correlation is essential. LAB L501.1110 >60 mL/min Normal EST GFR 77 Result Comment: Non- GFR Calc LAB L501.1115 >60 mL/min Normal EST GFR - AA 93 Result Comment: GFR Calc LAB L501.1255 ml/min Normal Estimated CRCL 56.93 LAB L501.1300 10-20 RATIO High BUN/CRE 33.8 LAB L501.2200 8.5-10 mg/dL Normal .1 CA 8.9 LAB L501.5300 136-14 mmol/L Normal 5 NA 142 LAB L501.5600 3.5-5. mmol/L Normal 1 K 4.2 LAB L501.5900 98-107 mmol/L Normal CL 105 LAB L501.6100 21.0-3 mmol/L Normal 2.0 CO2 27.0 LAB L501.6200 5-15 Normal GAP 10 Performed By: #### L500.2500 #### [facility] [address] [place], [address] CONSULTATION Observed: 01/28/2018 Status: F Source: [place] 6:48 AM [facility] [place] REPOSITORY [facility] Medical Records Department [address] [place] [address] Consultation 01/27/18 0508 MR#: [id number] Acct: [id number] Name: LESLIE DAVIS Rep #: [id number] : 1955 62 From: Aaron Ochoa DO PCP: KASI FONTANEZ [facility] Status: ADM IN Y Location: ICU ICU01-1 Problem List (1) Anaphylactic reaction Status: Acute Reason for Consult Date of Consultation: 01/27/18 Reason for Consultation: Acute Respiratory Failure History of Present Illness: The patient is a 62-year-old female, with a history as outlined below, who initially presented to the emergency department on January 26 with complaints of atypical chest pain. The patient was initially scheduled to undergo a left hip arthroplasty this week. On presentation, the patient was noted to be afebrile with elevated blood pressures in the 150s systolic. She was, nevertheless, maintaining appropriate oxygen saturations on room air. Initial CBC was largely unremarkable, as well as chemistry profile. Troponins were negative. The patient subsequently underwent a dobutamine stress echocardiogram on January 26, which was noted to be normal. The patient had been started on medical therapy with Lipitor, which she received on January 26 around 11 AM. During the late afternoon hours, a rapid response team was called, as the patient appeared to be developing angioedema. The patient received Pepcid, epinephrine and IV steroids. However, she continued to deteriorate clinically and had to be intubated emergently by anesthesia at the bedside. Per documentation, the patient did experience a transient episode of pulseless VT, for which ACLS was initiated, with subsequent return of spontaneous circulation. The patient was then transferred to the medical intensive care unit for ongoing management. Overnight, no issues were identified by the nursing staff. The patient's sedation was placed on hold this morning. She is currently awake and appropriately interactive. Although she has done well on spontaneous mode mechanical ventilation, she did not have a significant cuff leak noted this morning. Past Medical History Medical History: Medical History (Last Updated 01/26/18 @ 06:04 by Ino Null MD) Osteoarthritis M19.90 Allergies No Known Allergies Allergy (Verified 11/29/17 11:11) Home Medications: Ambulatory Orders Medication Instructions Recorded Duloxetine HCl 30 mg PO DAILY 06/14/16 Loratadine 10 mg PO DAILY PRN 05/14/17 Meloxicam 15 mg PO DAILY 11/29/17 Surgical History: cholecystectomy, hysterectomy, - - Left hip replacement Psychiatric History: Depression Lives: Alone Smoking Status: Never smoker - *Family History Maternal Family History: Family History (Last Updated 01/26/18 @ 06:09 by Ino Null MD) Father Stomach cancer Heart problem Mother Diabetes History Items: - Paternal Family History: Family History (Last Updated 01/26/18 @ 06:09 by Ino Null MD) Father Stomach cancer Heart problem Mother Diabetes History Items: - Sibling Family History: Family History (Last Updated 01/26/18 @ 06:09 by Ino Null MD) Father Stomach cancer Heart problem Mother Diabetes History Items: - Review of Systems Unable to obtain accurate/complete ROS d/t: Due to current intubation and mechanical ventilation status. Patient Problems: Active and Suspected Problems (Last Updated 01/26/18 @ 06:04 by Ino Null MD) Chest pain (Acute) Depression (Acute) Anaphylactic reaction (Acute) Objective: The patient's most recent lab work, culture data and imaging studies have all been personally reviewed. Sputum cultures currently pending. - Physical Exam General: - - Intubated and mechanically ventilated. Currently tolerating CPAP mode mechanical ventilation. HEENT: Atraumatic, PERRLA, Normocephalic Oral: Moist Mucosa, - - The patient's lower lip remains swollen. Neck: Supple, No Nodes, Trachea Midline Lungs: No rhonchi, No wheeze, No rales, Diminished Cardiovascular: Regular rate, Regular Rhythm, Normal S1, Normal S2, No murmurs Abdomen: Bowel Sounds Present, Soft, Non Tender, Obese Extremities: No clubbing, No cyanosis, No edema Skin: No breakdown Musculoskeletal: No Tenderness to Palpation of Joints or Extremities, No Muscle Wasting Lymphatic: No Cervical, Supraclavicular, or Inguinal Adenopathy Neurological: Neuro grossly intact, - - Alert and following commands appropriately. Vital Signs Temp Pulse Resp BP Pulse Ox 98.3 F 78 16 133/85 H 97 01/27/18 04:00 01/27/18 04:00 01/27/18 04:00 01/27/18 04:00 01/27/18 04:00 Oxygen Flow Rate (L/min) 2 Oxygen Delivery Method Mechanical Ventilator Weight: 204 lb 12.951 oz Body Mass Index (BMI) 37.1 Intake and Output for Last 24 Hours Intake Total 874.9 / 874.9 Output Total 355 / 355 Balance 519.9 / 519.9 Laboratory Tests Past 24 Hrs WBC RBC Hgb WBC 23.3 H RBC 3.89 L Hgb 12.6 Hct 38.1 MCV 97.9 MCH 32.4 H MCHC 33.1 RDW 12.4 WBC 17.5 H RBC 3.77 L Hgb 12.0 Hct 36.7 L MCV 97.3 MCH 31.8 MCHC 32.7 RDW 12.6 Clinical Impression(s) from Imaging Studies Chest X-Ray 01/26/18 04:15 IMPRESSION: Left basilar atelectasis/infiltrate. No focal consolidation is seen. Electronically Signed: Fuentes Estrella at 4:52 EST Tel , Service support , Chest X-Ray 01/26/18 15:19 IMPRESSION: The tip of the endotracheal tube is at the level of the duke. It should be pulled back approximately 2 cm. Stable widening of the superior mediastinum. Gaseous distention of the stomach. Electronically Signed: Arturo Lomeli MD at 15:40 EST Tel [phone], Service support , Chest X-Ray 01/26/18 16:00 IMPRESSION: New right lower lobe airspace disease and mild congestion. Stable prominent superior mediastinum. ET and NG tubes as above. Electronically Signed: Shreyas Mccloud MD at 16:53 EST , Service support , Assessment/Plan Active and Suspected Problems (Last Updated 01/26/18 @ 06:04 by Ino Null MD) Chest pain (Acute) Depression (Acute) Anaphylactic reaction (Acute) RECOMMENDATIONS: 1. Change from scheduled aerosol treatments to PRN 2. Although there is little evidence of clear benefit, will start steroids today. 3. Continue Pepcid. 4. Continue patient on spontaneous mode of mechanical ventilation. 5. Start tube feeds today. 6. Plan for daily paired spontaneous awakening and breathing trials. Check cuff leak each morning. 7. Continue Lovenox for DVT prophylaxis IMPRESSIONS: 1. Acute respiratory failure related to anaphylactic reaction and subsequent development of angioedema The patient's airway became compromised as the consequence of a presumed anaphylactic reaction to her newly started statin. She did require emergent intubation and transient ACLS due to the development of pulseless V. tach. The patient's ventilator requirements are minimal this morning. She is alert and following commands appropriately. Although she did do well on a spontaneous breathing trial, her air leak was minimal with the pilot submersible balloon of her endotracheal tube deflated. Therefore, I would continue the patient on full mechanical ventilatory support, while awaiting improvement in her airway edema. In addition to the aforementioned supportive measures, will continue Pepcid and add IV steroids today. We will plan to repeat a spontaneous breathing trial and reassess the patient's cuff leak in the morning. Would plan to start tube feeds today. 2. Atypical chest pain/transient pulseless VT The patient initially presented to the hospital with complaints of atypical chest pain, for which she underwent a cardiac evaluation, which included negative troponins and normal dobutamine stress echocardiogram. Would aim to maintain the patient's potassium greater than 4 and magnesium greater than 2. 3. Leukocytosis Likely stress reaction from the events that developed yesterday. The patient remains afebrile hemodynamically stable. I see no indication for the initiation of antibiotics. TIME: 45 minutes of critical care time, independent of procedures, was spent addressing the patient's acute respiratory failure, anaphylactic reaction, angioedema, atypical chest pain, leukocytosis, review of all data and collaboration with the care team. ([id number]) Code Visit 9xxxx: [id number] Critical care first hour 01/28/18 0648 <Electronically signed by Aaron Ochoa DO> Date Aaron Ochoa DO Cosigner Signature (if applicable): Date CC: Aaron Ochoa D.O.; Natalie TINOCO; [facility] Signed 12 LEAD ELECTROCARDIOGRAM Observed: 01/27/2018 Status: F Source: [place] 2:08 PM [facility] [place] REPOSITORY [facility] Cardiovascular Services [address] [place] [address] 12 Lead EKG 01/26/18 0416 MR#: [id number] Acct: [id number] Name: LESLIE DAVIS Rep #: [id number] : 1955 62 From: Chino Ferrara MD Attending Dr: Bird Brizuela MD Status: ADM IN Ordering Dr: Dana Taylor MD Date: 01/26/18 Location: ICU Sex: F C Admitted: 01/26/18 Test Reason : CP Blood Pressure : / mmHG Vent. Rate : 077 BPM Atrial Rate : 077 BPM P-R Int : 136 ms QRS Dur : 072 ms QT Int : 386 ms P-R-T Axes : 026 025 017 degrees QTc Int : 436 ms Normal sinus rhythm Normal ECG Confirmed by JOSIAS ARGUETA, CHINO ([id number]), supervising editor trailer EMELYN ZENDEJAS ([id number]) on 01/27/2018 2:08:16 PM Referred By: Natalie Horner Confirmed By:CHINO FERRARA MD 01/27/18 1408 Date Chino Ferrara MD CC: Dana Taylor MD; Bird Brizuela MD; Natalie TINOCO; [facility] Signed BASIC METABOLIC Collected: 01/27/2018 Status: F Source: [place] PROFILE (BMP) 5:30 AM [facility] REPOSITORY Order Comment: REDRAW. PREVIOUS SPECIMEN REJECTED DUE TO HEMOLYSIS. 01/27/18 0501 Darline Whittaker. TYPE CODE TESTS RESULT OUT OF RANGE REFERENCE UNITS LAB L501.0100 74-106 mg/dL High GLU 191 Result Comment: Fasting Glucose result greater than or equal to 126 mg/dL suggests DIABETES MELLITUS per A.D.A. criteria. Please note revised GLUCOSE reference range effective 2017. LAB L501.1000 7-18 mg/dL High BUN 20 LAB L501.1100 0.55-1.02 mg/dL Normal CREAT,SERUM 0.67 Result Comment: The validity of the calculated GFR AND GFRAA in patients over 70 years has not been determined. Clinical correlation is essential. LAB L501.1110 >60 mL/min Normal EST GFR 95 Result Comment: Non- GFR Calc LAB L501.1115 >60 mL/min Normal EST GFR - AA 115 Result Comment: GFR Calc LAB L501.1255 ml/min Normal Estimated CRCL 67.97 LAB L501.1300 10-20 RATIO High BUN/CRE 30.0 LAB L501.2200 8.5-10 mg/dL Low .1 CA 8.2 LAB L501.5300 136-14 mmol/L Normal 5 NA 138 LAB L501.5600 3.5-5. mmol/L Normal 1 K 3.6 LAB L501.5900 98-107 mmol/L Normal CL 104 LAB L501.6100 21.0-3 mmol/L Normal 2.0 CO2 25.0 LAB L501.6200 5-15 Normal GAP 9 Performed By: #### L500.2500, L501.5200 #### [facility] [address] [place], [place], [address] MAGNESIUM Collected: 01/27/2018 Status: F Source: [place] 5:30 AM [facility] [place] REPOSITORY Order Comment: REDRAW. PREVIOUS SPECIMEN REJECTED DUE TO HEMOLYSIS. 01/27/18 0501 Darline Whittaker. TYPE CODE TESTS RESULT OUT OF RANGE REFERENCE UNITS LAB L501.5200 1.6-2.6 mg/dL Normal MG 2.0 Performed By: #### L500.2500, L501.5200 #### [facility] [address] [place], [address] CBC W/DIFF, AUTOMATED Collected: 01/27/2018 Status: F Source: [place] 4:15 AM [facility] [place] REPOSITORY TYPE CODE TESTS RESULT OUT OF RANGE REFERENCE UNITS LAB L100.1000 4.4-11.0 K/mm3 High WBC 17.5 LAB L100.1200 4.2-5.4 M/mm3 Low RBC 3.77 LAB L100.1300 12.0-15.0 g/dl Normal HGB 12.0 LAB L100.1400 37-47 % Low HCT 36.7 LAB L100.1500 81-99 fL Normal MCV 97.3 LAB L100.1600 27.0-32.0 pg Normal MCH 31.8 LAB L100.1700 32-36 g/gl Normal MCHC 32.7 LAB L100.1810 11.6-14.6 % Normal RDW CV 12.6 LAB L100.1820 35.1-43.9 fl High RDW SD 45.0 LAB L100.1900 150-450 K/mm3 Normal PLT 311 LAB L100.2000 6.2-12.0 fl Normal MPV 10.2 LAB L100.2100 47-70 % High NEUT% 91.1 LAB L100.2200 19-41 % Low LY% 4.6 LAB L100.2300 0-10 % Normal MONO% 4.1 LAB L100.2400 0-5 % Normal EO% 0.0 LAB L100.2500 0-1 % Normal BASO% 0.0 LAB L100.2550 0.0-0.9 % Normal IM GRAN % 0.200 Result Comment: IG% - Immature Granulocytes (promyelocytes, myelocytes and metamyelocytes) > 1% indicates that a LEFT SHIFT is Present. LAB L100.2620 2.0-7.7 X10 3/uL High Absolute Neut 15.9 LAB L100.2720 0.83-4.51 X10 3/ul Low Absolute Lymph 0.80 Performed By: #### L100.0100 #### [facility] [address] [place] [address], [id number] Observed: 01/27/2018 Status: F Source: [place] CULTURE, SPUT[place] 4:00 AM [facility] REPOSITORY Gram Stain Gram Stain 4+ White Blood Cells 4+ Gram positive cocci Resp. Culture Mixed normal respiratory travon. No Haemophilus, Streptococcus pneumoniae, beta-hemolytic Streptococcus or Staphylococcus aureus isolated. Performed By: #### M100.0800 #### [facility] [address] [place], [place], [id number] BLOOD GASES BY [facility] Collected: 01/26/2018 Status: F Source: [place] 7:06 PM [facility] REPOSITORY TYPE CODE TESTS RESULT OUT OF RANGE REFERENCE UNITS LAB L9000.9990 Normal BLD GAS TYPE ART LAB L9001.1000 Normal SITE R Radial LAB L9001.1048 Normal Mode A-C LAB L9001.1050 O2 Normal Delivery Dev Vent LAB L9001.1060 MV Normal 6.00 LAB L9001.1065 Vt Normal 450 LAB L9001.1070 RR Normal 12 LAB L9001.1074 Normal FI02 50 LAB L9001.1076 Normal PEEP 5 LAB L9001.1104 Normal Results To ICU LAB L9001.1105 Normal Time Given 1859 LAB L9001.1110 7.35-7.45 pH Normal - I-STAT 7.39 LAB L9001.1210 35-45 mmHg Normal pCO2 - ISTAT 44.7 LAB L9001.1310 75-100 mmHG High PO2 I-STAT 134 LAB L9001.2300 22-26 mmol/L High HCO3 ISTAT 26.9 LAB L9001.2400 -2 to +2 mmol/L BE Normal ISTAT 2 LAB L9001.2415 mmol/L Normal TOTAL CO2 28 ISTAT LAB L9001.2425 95-99 % Normal SO2 ISTAT 99 Performed By: #### L9000.0800 #### [facility] Point of Care [address] [place] [address] PHOSPHORUS Collected: 01/26/2018 Status: F Source: [place] 5:05 [facility] REPOS[facility] TYPE CODE TESTS RESULT OUT OF RANGE REFERENCE UNITS LAB L501.2300 2.5-4.9 mg/dL Normal PHOS 3.8 Performed By: #### L501.2300 #### [facility] [address] [place], [address] CBC W/DIFF, AUTOMATED Collected: 01/26/2018 Status: F Source: [place] 5:05 PM [facility] REPOSITORY TYPE CODE TESTS RESULT OUT OF RANGE REFERENCE UNITS LAB L100.1000 4.4-11.0 K/mm3 High WBC 23.3 LAB L100.1200 4.2-5.4 M/mm3 Low RBC 3.89 LAB L100.1300 12.0-15.0 g/dl Normal HGB 12.6 LAB L100.1400 37-47 % Normal HCT 38.1 LAB L100.1500 81-99 fL Normal MCV 97.9 LAB L100.1600 27.0-32.0 pg High MCH 32.4 LAB L100.1700 32-36 g/gl Normal MCHC 33.1 LAB L100.1810 11.6-14.6 % Normal RDW CV 12.4 LAB L100.1820 35.1-43.9 fl Normal RDW SD 43.4 LAB L100.1900 150-450 K/mm3 Normal PLT 334 LAB L100.2000 6.2-12.0 fl Normal MPV 9.9 LAB L100.2100 47-70 % High NEUT% 92.2 LAB L100.2200 19-41 % Low LY% 4.9 LAB L100.2300 0-10 % Normal MONO% 2.4 LAB L100.2400 0-5 % Normal EO% 0.1 LAB L100.2500 0-1 % Normal BASO% 0.1 LAB L100.2550 0.0-0.9 % Normal IM GRAN % 0.300 Result Comment: IG% - Immature Granulocytes (promyelocytes, myelocytes and metamyelocytes) > 1% indicates that a LEFT SHIFT is Present. LAB L100.2620 2.0-7.7 X10 3/uL High Absolute Neut 21.5 LAB L100.2720 0.83-4.51 X10 3/ul Normal Absolute Lymph 1.14 LAB L100.4500 Normal SMEAR COMMENT Result Comment: NEUTROPHILIA NOTED Performed By: #### L100.0100 #### [facility] [address] [place], [address] COMPREHENSIVE METABOLIC Collected: 01/26/2018 Status: F Source: [facility] 5:05 PM [facility] REPOSITORY TYPE CODE TESTS RESULT OUT OF RANGE REFERENCE UNITS LAB L501.0100 74-106 mg/dL High GLU 200 Result Comment: Glucose result greater than or equal to 200 mg/dL suggests DIABETES MELLITUS per A.D.A. criteria. Please note revised GLUCOSE reference range effective 2017. LAB L501.1000 7-18 mg/dL High BUN 21 LAB L501.1100 0.55-1.02 mg/dL Normal CREAT,SERUM 0.84 Result Comment: The validity of the calculated GFR AND GFRAA in patients over 70 years has not been determined. Clinical correlation is essential. LAB L501.1110 >60 mL/min Normal EST GFR 73 Result Comment: Non- GFR Calc LAB L501.1115 >60 mL/min Normal EST GFR - AA 88 Result Comment: GFR Calc LAB L501.1255 ml/min Normal Estimated CRCL 54.22 LAB L501.1300 10-20 RATIO High BUN/CRE 25.0 LAB L501.1500 6.4-8. g/dL Normal 2 T PROT 7.3 LAB L501.1800 3.2-5. g/dL Normal 0 ALB 3.2 LAB L501.1950 2.2-4. g/dL Normal 2 GLOB 4.1 LAB L501.2000 0.9-2. RATIO Low 4 A/G 0.8 LAB L501.2200 8.5-10 mg/dL Low .1 CA 8.2 LAB L501.4100 15-37 U/L High AST 71 LAB L501.4305 45-117 U/L Normal ALK P 100 LAB L501.4405 13-56 U/L Normal ALT 48 LAB L501.4600 0.20-1 mg/dL Normal .00 T BILI 0.70 LAB L501.5300 136-14 mmol/L Normal 5 NA 139 LAB L501.5600 3.5-5. mmol/L Normal 1 K 3.5 LAB L501.5900 98-107 mmol/L Normal CL 107 LAB L501.6100 21.0-3 mmol/L Normal 2.0 CO2 22.0 LAB L501.6200 5-15 Normal GAP 10 Performed By: #### L500.4050, L501.5200, L501.9520 #### [facility] [address] [place], [place], [address] MAGNESIUM Collected: 01/26/2018 Status: F Source: [place] 5:05 PM [facility] REPOSITORY TYPE CODE TESTS RESULT OUT OF RANGE REFERENCE UNITS LAB L501.5200 1.6-2.6 mg/dL Normal MG 2.6 Performed By: #### L500.4050, L501.5200, L501.9520 #### [facility] [address] [place], [address] THYROID STIM HORMONE Collected: 01/26/2018 Status: F Source: [place] (TSH) 5:05 PM [facility] REPOSITORY TYPE CODE TESTS RESULT OUT OF RANGE REFERENCE UNITS LAB L501.9520 0.358-3.74 uIU/mL Normal TSH 2.30 Performed By: #### L500.4050, L501.5200, L501.9520 #### [facility] [address] [place], [address] STRESS TEST ECHO W/O Observed: 01/26/2018 Status: F Source: [place] CONTRAST 4:11 PM [facility] REPOSITORY [facility] Cardiovascular Services [address] [place] [address] Stress Test Echo w/o Contrast MR#: [id number] Acct: [id number] Name: LESLIE DAVIS Rep #: [id number] : 1955 62 From: Chino Ferrara MD Primary Care: [facility] Status: ADM IN Ordering Dr: Bird Brizuela MD Sex: F C Reason For Study: CHEST PAIN Stress Results Protocol: Dobutamine Maximum Predicted HR: 157 bpm Target HR: 133 bpm % Maximum Predicted HR: 87 % DurationHeart Rate Stage (mm:ss) (bpm) BP Dose Comment BASELINE 75 145/75 STAGE 1 3:00 103 135/6710.00 STAGE 2 3:00 134 / 20.00 STAGE 3 0:24 136 / 30.00 RECOVERY 83 149/66 SOME DISCOMFORT IN HER LEFT HEAD/NECK AREA Stress Duration: 6:24 mm:ss Maximum Stress HR: 136 bpm Baseline Echocardiogram Findings Stress Echo Wall motion Data Resting WM Intermediate WM Stress WM Resting Wall Motion Wall Motion Stress No regional wall motion No regional wall motion abnormalities noted. abnormalities noted. Ejection Fraction 60 %. Ejection Fraction 70 %. Stress Results Drug infusion was stopped due to achievement of target heart rate. Normal blood pressure response to exercise. Interpretation Summary Dobutamine stress echocardiogram. Resting EKG demonstrates normal sinus rhythm with rate of 73 bpm normal intervals are noted resting blood pressure 145/75 mmHg. Dobutamine was infused starting at 10 mcg/kg/min increasing in 3-minute increments to a peak of 30 mcg/kg/min. The maximum heart rate attained was noted to be 137 bpm which was 87% of maximum predicted heart rate the maximum workload was 1 metabolic equivalent. Patient maintained sinus rhythm throughout the recording. At rest there were no ST or T wave changes noted suggest ischemia at peak infusion no ST or T wave changes were noted suggest ischemia. The resting blood pressure was noted to be 145/75 with a peak blood pressure 149/66. Stress echocardiographic images. The resting echocardiogram performed demonstrated an ejection fraction of 60%. During dobutamine peak infusion the ejection fraction was noted to be 70%. No wall motion abnormalities were noted. Conclusion. 1. normal dobutamine stress echocardiographic imaging. No arrhythmias noted. Ordering Physician: MD Bird Brizuela MD Referring Physician: Natalie Greene Performed By: Alejandra Maher, YENY, RVT 01/26/18 1611 Date Chino Ferrara MD CC: Bird Brizuela MD; Natalie TINOCO; [facility] Date Dictated: 01/26/18 1031 Date Transcribed: 01/26/18 1611 Armament Mechanic: Signed CHEST 1 VIEW Observed: 01/26/2018 Status: F Source: [place] (PORTABLE) 3:36 PM [facility] REPOSITORY [facility] Imaging Services [address] [place] [address] Chest 1 View (Portable) MR#: [id number] Acct: [id number] Name: LESLIE DAVIS Rep #: [id number] : 1955 F 62 From: Shreyas Mccloud MD PCP: [facility] Status: ADM IN Study: Chest 1 View (Portable) Date of Exam: 01/26/18 Exam# [id number] Ordering Dr: Bird Brizuela MD STUDY: X-RAY CHEST REASON FOR EXAM: Female, 62 years old. ET tube placement TECHNIQUE: Single frontal view of the chest. COMPARISON: January 26, 2018 FINDINGS: ET tube is been withdrawn 3 cm above the duke. There is now an enteric tube in the stomach. Mild congestion. Right lower lobe airspace disease or subsegmental atelectasis. There is no demonstrated pleural abnormality. Normal size heart. Prominent mediastinum unchanged. Normal visualized pulmonary arteries. Normal visualized aortic arch and descending thoracic aorta. Normal visualized thoracic spine. Normal visualized ribs, clavicles, and shoulders. There is no demonstrated abnormality of the visualized soft tissue structures of the upper abdomen. RAD/Chest 1 View (Portable) IMPRESSION: New right lower lobe airspace disease and mild congestion. Stable prominent superior mediastinum. ET and NG tubes as above. Electronically Signed: Shreyas Mccloud MD at 16:53 EST , Service support , CC: Bird Brizuela MD; [facility] Armament Mechanic: Signed CHEST 1 VIEW Observed: 01/26/2018 Status: F Source: [place] (PORTABLE) 3:20 PM [facility] REPOSITORY [facility] Imaging Services [facility] [place] [place] [address] Chest 1 View (Portable) MR#: [id number] Acct: [id number] Name: LESLIE DAVIS Rep #: [id number] : 1955 F 62 From: Arturo Lomeli MD PCP: [facility] Status: ADM IN Study: Chest 1 View (Portable) Date of Exam: 01/26/18 Exam# [id number] Ordering Dr: Bird Brizuela MD STUDY: X-RAY CHEST REASON FOR EXAM: Female, 62 years old. Endotracheal tube placement. TECHNIQUE: Single AP portable view of the chest. COMPARISON: Comparison is made with prior examination dated January 26, 2018 at 4:27 AM. FINDINGS: The tip of the endotracheal tube is at the level of the duke. It should be pulled back approximately 2 cm. There is evidence of vascular congestion and mild CHF. There is no demonstrated pleural abnormality. Normal size heart. Stable widening of the superior mediastinum. This may be due to the technique. Normal visualized pulmonary arteries. Normal visualized aortic arch and descending thoracic aorta. Normal visualized thoracic spine. Normal visualized ribs, clavicles, and shoulders. Gaseous distention of the stomach. RAD/Chest 1 View (Portable) IMPRESSION: The tip of the endotracheal tube is at the level of the duke. It should be pulled back approximately 2 cm. Stable widening of the superior mediastinum. Gaseous distention of the stomach. Electronically Signed: Arturo Lomeli MD at 15:40 EST Tel [phone], Service support , CC: Bird Brizuela MD; [facility] Armament Mechanic: Signed TROPONIN-I Collected: 01/26/2018 Status: F Source: [place] 11:08 AM [facility] REPOSITORY Order Comment: 'TROP' Serial specimen #1, #2 or #3: 3 TYPE CODE TESTS RESULT OUT OF RANGE REFERENCE UNITS LAB L501.4010 <0.045 ng/mL Normal < 0.015 TROPONIN-I Result Comment: TROPONIN-I EXPECTED VALUES <0.045 Negative 0.045 - 0.590 Consistent with Cardiac Damage > OR = 0.600 Critical Value Not every elevated troponin is indicative of WI. These values should be used with clinical judgement in examining the patient's clinical picture for diagnosis. To establish a diagnosis of WI versus myocardial injury, there must be a demonstrated rise and/or fall in the troponin values, in addition to ischemic symptoms, EKG changes, new regional wall motion abnormality, and/or angiographical evidence. PLEASE NOTE: REFERENCE RANGES EDITED 17 Performed By: #### L501.4010 #### [facility] [address] [place], [address] TROPONIN-I Collected: 01/26/2018 Status: F Source: [place] 8:10 AM [facility] REPOSITORY Order Comment: 'TROP' Serial specimen #1, #2 or #3: 2 TYPE CODE TESTS RESULT OUT OF RANGE REFERENCE UNITS LAB L501.4010 <0.045 ng/mL Normal < 0.015 TROPONIN-I Result Comment: TROPONIN-I EXPECTED VALUES <0.045 Negative 0.045 - 0.590 Consistent with Cardiac Damage > OR = 0.600 Critical Value Not every elevated troponin is indicative of WI. These values should be used with clinical judgement in examining the patient's clinical picture for diagnosis. To establish a diagnosis of WI versus myocardial injury, there must be a demonstrated rise and/or fall in the troponin values, in addition to ischemic symptoms, EKG changes, new regional wall motion abnormality, and/or angiographical evidence. PLEASE NOTE: REFERENCE RANGES EDITED 17 Performed By: #### L501.4010 #### [facility] [address] [facility] [place], [address] HISTORY AND PHYSICAL Observed: 01/26/2018 Status: F Source: [place] EXAM 6:18 AM [facility] REPOSITORY [facility] Medical Records Department [address] [facility] [place] [address] History and Physical 01/26/18 0543 MR#: [id number] Acct: [id number] Name: LESLIE DAVIS Rep #: [id number] : 1955 62 From: Ino Null MD PCP: [facility] Status: ADM ADIEL Y Location: [place] [address] Problem List (1) Chest pain Status: Acute (2) Depression Status: Acute History of Present Illness Date of Admission: 01/26/18 Chief Complaint: chest pain The patient is a 62 year old F with a significant history of depression; arthritis status post right hip replacement and scheduled left hip replacement; who presented with episodic progressively worsening chest pain. Her symptoms started a day before her admission. Patient reported that all day she had left-sided shoulder pain that radiated to her left neck; and left jaw. She reports soreness at the left neck. The night of the same day around 10 PM she began to have chest pain that radiated to her back. She described the pain as a tightness and heaviness. Her pain is aggravated by turning her neck and also by moving in bed or attempting to change position. Her pain is improved when she lies still. She denied any nausea or diaphoresis. Patient is scheduled to have a left hip replacements on Friday, January 28. She used to take meloxicam for arthritis but because of the upcoming hip replacement surgery she has been off meloxicam for about 1 week. She takes Tylenol at home. Past Medical History Medical History: Medical History (Last Updated 01/26/18 @ 06:04 by Ino Null MD) Osteoarthritis M19.90 Allergies No Known Allergies Allergy (Verified 11/29/17 11:11) Home Medications: Ambulatory Orders Medication Instructions Recorded Duloxetine HCl 30 mg PO DAILY 06/14/16 Fluticasone 0.05% [Flonase Nasal 2 spray NASAL DAILY PRN 05/14/17 [place]] Surgical History: cholecystectomy, hysterectomy, - - Left hip replacement Psychiatric History: Depression Lives: Alone Smoking Status: Never smoker - *Family History Maternal Family History: Family History (Last Updated 01/26/18 @ 06:09 by Ino Null MD) Father Stomach cancer Heart problem Mother Diabetes Paternal Family History: Family History (Last Updated 01/26/18 @ 06:09 by Ino Null MD) Father Stomach cancer Heart problem Mother Diabetes History Items: - Sibling Family History: Family History (Last Updated 01/26/18 @ 06:09 by Ino Null MD) Father Stomach cancer Heart problem Mother Diabetes History Items: - Review of Systems Constitutional: Denies: Chills, Fever, Weight Change HEENT: Denies: Head Aches, Sinus Congestion, Sinus Drainage Cardiovascular: Reports: Chest Pain. Denies: Palpitations Respiratory: Denies: Cough, Shortness of breath at rest, Sputum production Gastrointestinal: Denies: Abdominal Pain, Nausea, Vomiting Genitourinary: Denies: Dysuria Musculoskeletal: Reports: Neck Pain - Left, Shoulder Pain - Left. Denies: Joint Pain, Joint Tenderness Skin: Denies: Rash, Wounds Neurological: Denies: Numbness, Tingling, Focal weakness Psychiatric: Denies: Anxiety, Depression, Homicidal Ideations, Suicidal Ideations Hematologic/ Lymphatic: Denies: Easy Bruising, Easy Bleeding VTE Information - Inpt Only VTE Present on Admission: No VTE Mechan Device Prophylaxis: None VTE Pharm Prophylaxis ordered?: Yes Patient Problems: Active and Suspected Problems Chest pain (Acute) Depression (Acute) - Physical Exam General: Alert, Oriented x3, Cooperative HEENT: Atraumatic, PERRLA, EOMI, Normocephalic Neck: Supple, No JVD, Negative Carotid Bruits Lungs: Clear to auscultation, Normal air movement, - - Tender substernal area. Cardiovascular: Regular rate, No murmurs Abdomen: Bowel Sounds Present, Soft, Non Tender Extremities: No edema, Capillary Refill Less than 3 Seconds, Tenderness - Left neck and spinous process of upper back. Skin: No rashes, No breakdown Musculoskeletal: No Muscle Wasting Neurological: Cranial nerves II-XII grossly intact Psych/Mental Status: Normal Affect, Appropriate Vital Signs Temp Pulse Resp BP Pulse Ox 98.4 F 80 22 H 171/95 H 96 01/26/18 04:14 01/26/18 04:14 01/26/18 04:14 01/26/18 04:14 01/26/18 04:22 Oxygen Delivery Method Room Air Weight: 91.777 kg Body Mass Index (BMI) 37.0 Laboratory Tests Past 24 Hrs WBC 11.5 H RBC 3.84 L Hgb 12.4 Hct 37.5 MCV 97.7 MCH 32.3 H MCHC 33.1 RDW 12.3 RDW Differential 42.4 Assessment/Plan All Active Problems Chest pain (Acute) Depression (Acute) ? r kidney nodule ct of abd (Acute) Left shoulder pain (Acute) The patient is a 62 year old F with a significant history of depression; arthritis status post right hip replacements and scheduled left hip replacement; who presented with episodic progressively worsening chest pain; left shoulder pain, left neck pain and upper back pain. Chest pain Admit to a monitored bed on PCU Impression of chest x-ray by radiologist included left basilar atelectasis/infiltrate.; aortic calcification; and degenerative osteoarthritis of bilateral shoulders. EKG independently reviewed confirms sinus rhythm with no repolarization abnormalities. Differential diagnosis include musculoskeletal source of chest pain. Review of old records show the patient has left shoulder pain documented on 01/06/2015. Cardiac source of chest pain, can not be ruled out at this time. Especially as patient is going to have left hip surgery in 2 days it will be appropriate to get a stress test to rule out cardiac source of chest pain. Patient took 324 mg of aspirin by herself and paramedics made her take an additional 324 mg of aspirin. So all in all she has received 648 mg of aspirin. No further aspirin for today. Also she was given nitroglycerin by paramedics. SL NTG 0.4 mg prn as needed for chest pain Morphine as needed for pain. High intensity statin x1 ordered. Troponin at emergency department was negative. Serial cardiac enzymes ordered Stat EKG as needed for chest pain Stress test in the AM if the cardiac enzymes are negative. If stress test is negative recommend patient go back to taking meloxicam after her scheduled left hip replacement. Consider short-term dose of pain medicine upon discharge if her stress test is unremarkable. If her pain remains persistent with meloxicam she may need imaging of her neck/shoulder but this will be outpatient. Atelectatic lungs Patient had no cough; or fever. She has some mild leukocytosis. Pneumonia is unlikely. Incentive spirometer ordered. Elevated blood pressure without diagnosis of hypertension. On admission her blood pressure was not within goal. Patient reported anytime that she has pain her blood pressure goes up. Her elevated blood pressure may be because of pain or she may have some underlying benign essential hypertension. Trend blood pressures at this time. Depression Duloxetine continued DVT prophylaxis Subcutaneous Lovenox. Miscellaneous: Home medication reconciliation. She takes Flonase as needed - reports she has no need at this time. She takes loratadine as needed reports she has no need at this time. Meloxicam is on hold because of her upcoming surgery. She does not take oxycodone at this time. She does not take prednisone at this time. Code Visit OBSV E AND M: [id number] Initial observation care L3 01/26/18 0618 <Electronically signed by Ino Null MD> Date Ino Null MD Cosigner Signature: Date (if applicable) CC: Ino Null MD; KASI ORNELAS Signed EMERGENCY DEPARTMENT Observed: 01/26/2018 Status: F Source: [place] SUMMARY 5:18 AM [facility] REPOSITORY [facility] Medical Records Department [address] [place] [address] Emergency Department Summary 01/26/18 0416 MR#: [id number] Acct: [id number] Name: LESLIE DAVIS Rep #: [id number] : 1955 62 From: Dana Taylor MD PCP: KASI ORNELAS Status: REG ER - ER Visit Summary Date of Service: 01/26/18 Chief Complaint: Chest pain History of Present Illness: The patient is a 62 F presenting with chest pain that started around 10 PM. Pain is in the left side of her chest and radiates to her left jaw. At its worst it was 9/10. Currently 6/10. She has associated shortness of breath, nausea. She has no PE/DVT risk factors. She is not a smoker. She is scheduled for hip replacement on Friday of this week. Physical Examination: Vitals are stable. Patient is afebrile. Alert no acute distress. HEENT exam is unremarkable. Neck is supple. Lungs are clear and equal bilaterally. Heart is regular rate and rhythm. Abdomen is soft nontender nondistended. Extremities are unremarkable. Skin is warm and dry. No focal neurologic deficit. Remainder of exam is unremarkable. Emergency Department Course and Treatment: Patient is given aspirin, morphine, Zofran. EKG is sinus rate 77. CBC shows white count 11.5, chemistries unremarkable other than BUN 20. Troponin is negative. Chest x-ray shows atelectasis versus infiltrate left base. Patient has no cough or fever. She is pain-free on reevaluation. Discussed with the hospitalist for observation. Disposition: Observation Impression: Chest pain This note was generated with Clipboard dictation software. It may contain incorrect words, spelling, and punctuation that were not noted in review of the chart prior to signing ED Disposition - Plan for ED Patient: Chief Complaint: Chest Pain Referrals: Kasi Washburn [Primary Care Provider] - What to do if you have Problems For any increased pain, shortness of breath, bleeding, nausea or vomiting, chest pain, or any unexpected problems, contact your Primary Care Provider. Call [facility] ([phone]) or report to the closest Emergency Room. Call 911 if necessary. 01/26/18517 <Electronically signed by Dana Taylor MD> Date Dana Taylor MD Cosigner Signature (If Indicated): Date CC: KASI ORNELAS CHEST 1 VIEW Observed: 01/26/2018 Status: F Source: [place] (PORTABLE) 4:15 AM [facility] REPOSITORY [facility] Imaging Services [address] [place] [id number] Chest 1 View (Portable) MR#: [id number] Acct: [id number] Name: LESLIE DAVIS Rep #: [id number] : 1955 F 62 From: Fuentes Estrella MD PCP: KASI ORNELAS Status: REG ER Study: Chest 1 View (Portable) Date of Exam: 01/26/18 Exam# [id number] Ordering Dr: Dana Taylor MD STUDY: X-RAY CHEST REASON FOR EXAM: Female, 62 years old. Left shoulder pain TECHNIQUE: Single frontal view of the chest. COMPARISON: None. FINDINGS: Low lung volumes. Chronic lung changes. Left basilar atelectasis/infiltrate. Azygos lobe. No pneumothorax. No pleural effusion. Normal size heart. Aortic calcifications. There are diffuse degenerative changes of the visualized thoracic spine. There is degenerative osteoarthritis of the bilateral shoulders. There is no demonstrated abnormality of the visualized soft tissue structures of the upper abdomen. RAD/Chest 1 View (Portable) IMPRESSION: Left basilar atelectasis/infiltrate. No focal consolidation is seen. Electronically Signed: Fuentes Estrella, at 4:52 EST Tel , Service support , CC: Dana Taylor MD; [facility] Armament Mechanic: Signed CBC W/DIFF, AUTOMATED Collected: 01/26/2018 Status: F Source: [place] 4:14 AM [facility] REPOSITORY TYPE CODE TESTS RESULT OUT OF RANGE REFERENCE UNITS LAB L100.1000 4.4-11.0 K/mm3 High WBC 11.5 LAB L100.1200 4.2-5.4 M/mm3 Low RBC 3.84 LAB L100.1300 12.0-15.0 g/dl Normal HGB 12.4 LAB L100.1400 37-47 % Normal HCT 37.5 LAB L100.1500 81-99 fL Normal MCV 97.7 LAB L100.1600 27.0-32.0 pg High MCH 32.3 LAB L100.1700 32-36 g/gl Normal MCHC 33.1 LAB L100.1810 11.6-14.6 % Normal RDW CV 12.3 LAB L100.1820 35.1-43.9 fl Normal RDW SD 42.4 LAB L100.1900 150-450 K/mm3 Normal PLT 342 LAB L100.2000 6.2-12.0 fl Normal MPV 9.5 LAB L100.2100 47-70 % Normal NEUT% 68.6 LAB L100.2200 19-41 % Normal LY% 22.3 LAB L100.2300 0-10 % Normal MONO% 7.4 LAB L100.2400 0-5 % Normal EO% 1.0 LAB L100.2500 0-1 % Normal BASO% 0.5 LAB L100.2550 0.0-0.9 % Normal IM GRAN % 0.200 Result Comment: IG% - Immature Granulocytes (promyelocytes, myelocytes and metamyelocytes) > 1% indicates that a LEFT SHIFT is Present. LAB L100.2620 2.0-7.7 X10 3/uL High Absolute Neut 7.9 LAB L100.2720 0.83-4.51 X10 3/ul Normal Absolute Lymph 2.57 Performed By: #### L100.0100 #### [facility] [address] [place], [address] BASIC METABOLIC Collected: 01/26/2018 Status: F Source: [place] PROFILE ([facility]) 4:14 AM [facility] REPOSITORY TYPE CODE TESTS RESULT OUT OF RANGE REFERENCE UNITS LAB L501.0100 74-106 mg/dL Normal GLU 101 Result Comment: Fasting Glucose result from 100 to 125 mg/dL suggests IMPAIRED HOMEOSTASIS per A.D.A. criteria. Please note revised GLUCOSE reference range effective 2017. LAB L501.1000 7-18 mg/dL High BUN 20 LAB L501.1100 0.55-1.02 mg/dL Normal CREAT,SERUM 0.66 Result Comment: The validity of the calculated GFR AND GFRAA in patients over 70 years has not been determined. Clinical correlation is essential. LAB L501.1110 >60 mL/min Normal EST GFR 96 Result Comment: Non- GFR Calc LAB L501.1115 >60 mL/min Normal EST GFR - AA 116 Result Comment: GFR Calc LAB L501.1255 ml/min Normal Estimated CRCL 69.00 LAB L501.1300 10-20 RATIO High BUN/CRE 30.2 LAB L501.2200 8.5-10 mg/dL Normal .1 CA 8.8 LAB L501.5300 136-14 mmol/L Normal 5 NA 142 LAB L501.5600 3.5-5. mmol/L Normal 1 K 3.5 LAB L501.5900 98-107 mmol/L Normal CL 107 LAB L501.6100 21.0-3 mmol/L Normal 2.0 CO2 26.0 LAB L501.6200 5-15 Normal GAP 9 Performed By: #### L500.2500, L501.4010 #### [facility] [address] [place], [place], [address] TROPONIN-I Collected: 01/26/2018 Status: F Source: [place] 4:14 AM [facility] REPOSITORY TYPE CODE TESTS RESULT OUT OF RANGE REFERENCE UNITS LAB L501.4010 <0.045 ng/mL Normal < 0.015 TROPONIN-I Result Comment: TROPONIN-I EXPECTED VALUES <0.045 Negative 0.045 - 0.590 Consistent with Cardiac Damage > OR = 0.600 Critical Value Not every elevated troponin is indicative of WI. These values should be used with clinical judgement in examining the patient's clinical picture for diagnosis. To establish a diagnosis of WI versus myocardial injury, there must be a demonstrated rise and/or fall in the troponin values, in addition to ischemic symptoms, EKG changes, new regional wall motion abnormality, and/or angiographical evidence. PLEASE NOTE: REFERENCE RANGES EDITED 17 Performed By: #### L500.2500, L501.4010 #### [facility] [address] [facility] [place], [place], [address] STAPH AUREUS PCR Collected: 01/05/2018 Status: F Source: [place] 11:47 PM [facility] REPOSITORY TYPE CODE TESTS RESULT OUT OF REFERENCE UNITS RANGE LAB SASRC Nasal S aureus Spec Source LAB MRSRES Negative for MRSA MRSA by PCR. PCR LAB SARES Negative for Staph Staphylococcus aureus PCR aureus by PCR. Performed By: #### SAPCR #### [facility] [address] [place], [place] [address] URINALYSIS WITH Collected: 01/05/2018 Status: F Source: [facility] 4:21 PM [facility] REPOSITORY TYPE CODE TESTS RESULT OUT OF RANGE REFERENCE UNITS LAB UCOL Yellow Color Yellow LAB [facility] Clear Clarity Abnormal Cloudy Alert LAB UGLUC Negative mg/dL Glucose, Urine Negative LAB UBIL Negative Bilirubin, Urine Negative LAB UKET Negative Ketones, Urine Negative LAB USPG 1.005-1.030 Specific [place], Ur 1.023 LAB UHGB Negative Abnormal Hemoglobin/Blood, 2+ Alert Ur LAB UPH 4.5-8.0 pH 5.0 LAB UPROT Negative mg/dL Protein, Urine Negative LAB UUROB Normal Urobilinogen Normal LAB UNITR Negative Nitrites Negative LAB ULKEST Negative Leukest Abnormal 3+ Alert LAB UCOM Comments SEE COMMENT Result Comment: N/A LAB UMCOM Urine SEE Bernard Comment COMMENT Result Comment: N/A LAB UWBC 0-5 /HPF Abnormal WBC Alert >25 LAB URBC 0-3 /HPF Abnormal RBC Alert 11-25 LAB UEPI /HPF Epithelial Cells SEE COMMENT Result Comment: Few Squamous Epithelial Cells LAB UCRYS 0 /HPF Abnormal Alert Crystals SEE COMMENT Result Comment: Moderate Calcium Oxalate Crystal Performed By: #### UAWMIC #### [place] [id number] Observed: 01/05/2018 Status: F Source: [place] URINE CULTURE 4:21 PM [facility] REPOSITORY Sp. Request/Comment: - Best Practice Alert: To ensure optimal transport conditions and accurate culture results transfer urine specimens to dean top C and S preservative tube. Culture Result - <10,000 CFU/ml Normal urogenital travon Performed By: #### URCUL #### [place] [address] CBC AND DIFFERENTIAL Collected: 01/05/2018 Status: F Source: [place] 4:19 PM [facility] REPOSITORY TYPE CODE TESTS RESULT OUT OF REFERENCE UNITS RANGE LAB WBC 3.70-11.00 k/uL WBC 8.24 LAB RBC 3.90-5.20 m/uL RBC 3.97 LAB HGB 11.5-15.5 g/dL Hemoglobin 12.9 LAB HCT 36.0-46.0 % Hematocrit 39.3 LAB MCV 80.0-100.0 fL MCV 99.0 LAB MCH 26.0-34.0 pG MCH 32.5 LAB MCHC 30.5-36.0 g/dL MCHC 32.8 LAB RDWCV 11.5-15.0 % RDW-CV 12.3 LAB PLTCT 150-400 k/uL Platelet Count 348 LAB MPV 9.0-12.7 fL MPV 10.4 LAB ANEUT % Neut% 62.9 LAB AANEUT 1.45-7.50 k/uL Abs Neut 5.19 LAB ALYMP % Lymph% 26.1 LAB AALYMP 1.00-4.00 k/uL Abs Lymph 2.15 LAB AMONO % [place]% 8.3 LAB AAMONO <0.87 k/uL Abs [place] 0.68 LAB AEOS % Eosin% 1.7 LAB AAEOS <0.46 k/uL Abs Eosin 0.14 LAB ABASO % Baso% 1.0 LAB AABASO <0.11 k/uL Abs Baso 0.08 LAB AUNRBC 0 /100 WBC NRBCs 0.0 LAB ABNRBC <0.01 k/uL Absolute nRBC <0.01 LAB DTYP DTYPE Auto Diff Performed By: #### CBCDIF, IRON, CMP, FERR #### [facility] [address] [place] [address] IRON AND TIBC Collected: 01/05/2018 Status: F Source: [place] 4:19 PM [facility] REPOSITORY TYPE CODE TESTS RESULT OUT OF REFERENCE UNITS RANGE LAB IRN 41-186 ug/dL Iron 68 LAB TIBC 232-386 ug/dL TIBC 302 LAB SAT 15-57 % Transferrin Saturatn 23 Performed By: #### CBCDIF, IRON, CMP, FERR #### [facility] [address] [place] [address] COMP METABOLIC PANEL Collected: 01/05/2018 Status: F Source: [place] 4:19 [facility] REPOSITORY TYPE CODE TESTS RESULT OUT OF REFERENCE UNITS RANGE LAB TP 6.3-8.0 g/dL Protein, Total 7.7 LAB ALB 3.9-4.9 g/dL Albumin 4.1 LAB CA 8.5-10.2 mg/dL Calcium, Total 10.0 LAB TBIL 0.2-1.3 mg/dL Bilirubin, Total 0.4 LAB ALKP 34-123 U/L Alkaline Phosphatase 87 LAB AST 13-35 U/L AST 23 LAB GLU 74-99 mg/dL Glucose 86 Result Comment: The [place] [employer] (ADA) provides guidance for cutoff values for fasting glucose and random glucose. The ADA defines fasting as no caloric intake for at least 8 hours. Fas ting plasma glucose results between 100 to 125 mg/dL indicate increased risk for diabetes (prediabetes). Fasting plasma glucose results greater than or equal to 126 mg/dL meet the criteria for diagnosis of diabetes. In the absence of unequivocal hyperglycemia, results should be confirmed by repeat testing. In a patient with classic symptoms of hyperglycemia or hyperglycemic crisis, random plasma glucose results greater than or equal to 200 mg/dL meet the criteria for diagnosis of diabetes. Reference: Standards of Medical Care in Diabetes 2016, [place] [employer]. Diabetes Care. 2016.39(Suppl 1). LAB BUN 7-21 mg/dL BUN 21 LAB CRET 0.58-0.96 mg/dL Creatinine 0.77 LAB NA 136-144 mmol/L Sodium 140 LAB K 3.7-5.1 mmol/L Potassium 3.9 LAB CL 97-105 mmol/L Chloride 104 LAB CO2 22-30 mmol/L CO2 25 LAB AGAP 9-18 mmol/L Anion Gap 11 LAB ALT 7-38 U/L ALT 14 LAB GFRAA eGFR- Amer. >60 LAB GFRNAA . eGFR-All Other Races >60 Result Comment: eGFR (Estimated GFR) Units of measure: mL/min/1.73 meters squared eGFR is derived from the reexpressed MDRD Study equation using the following parameters: serum creatinine, age, gender and race. The creatinine assay has been calibrated to be traceable to IDPR. An eGFR <60 mL/min/1.73m2 for >3 months is consistent with chronic kidney disease. Refer to KDOQI guidelines for clinical interpretation. In patients with unstable renal function, e.g. those with acute kidney injury, the eGFR may not accurately reflect actual GFR. Performed By: #### CBCDIF, IRON, CMP, FERR #### [facility] [address] [place], [place] [address] FERRITIN Collected: 01/05/2018 Status: F Source: [place] 4:19 PM [facility] REPOSITORY TYPE CODE TESTS RESULT OUT OF REFERENCE UNITS RANGE LAB FERR 14.7-205.1 ng/mL High Ferritin 214.8 Performed By: #### CBCDIF, IRON, CMP, FERR #### [facility] [address] [place], [place] [address] HISTORY PHYSICAL Observed: 01/05/2018 Status: COMPLETED Source: [place] 3:44 PM [facility] REPOSITORY O ID: [id number] Author: Gracie Cruz (Pa) Service: (none) Author Type: Physician [place] Supervisor Type: HANDP Filed: 01/14/2018 12:12 PM Note Text: HISTORY AND PHYSICAL EXAMINATION SERVICE DATE: 01/05/2018 SERVICE TIME: 3:44 PM PRIMARY CARE PHYSICIAN: Natalie Horner CNP REASON FOR VISIT: Leslie Davis is a 62 year old female who is scheduled for left ALIYAH at the request of Dr. Ishaan Gregorio for consultation. My final recommendation will be communicated back to the requesting physician by way of shared medical record or letter. The patient has the following: ACTIVE PROBLEM LIST Obesity Right-Sided Low Back Pain With Right-Sided Sciatica Depression Seasonal Allergies Low Back Pain With Left-Sided Sciatica Primary Osteoarthritis of Left Hip Subjective CHIEF COMPLAINT: left hip pain HPI: Leslie Davis is a 62 year old female that presents c/o a several month history of left hip pain that has worsened with time. no trauma to hip and no previous left hip surgery. S/p right ALIYAH in 05/2017. Pain is intermittent and described as sharp in nature. Pain does radiate to groin. Aggravating factors include working and being on feet. Alleviated by using cane. Previous treatments include Mobic. Scheduled for left ALIYAH on 01/28/18. Denies recent illness, fever or chills. PAST MEDICAL HISTORY Diagnosis Date - Depression - Obesity - Osteoarthritis hands - Seasonal allergies - Septic joint (HCC) Right great toe - Shingles - Varicose veins of legs PAST SURGICAL HISTORY Procedure Laterality Date - CHOLECYSTECTOMY 1999 [place] - COLONOSCOPY 2013 normal, peformed by Dr. Nguyen - [place] TOTAL ABDOMINAL HYSTERECTOMY 2000 FAMILY HISTORY Problem Relation Age of Onset - Diabetes Mother - Breast Cancer Sister 61 - Diabetes Brother - Stroke Brother - Diabetes Brother - Cancer Father gastric - Coronary Artery Disease Father WI x3 SOCIAL HISTORY: Social History Marital status: Single Spouse name: Years of education: Number of children: Social History Main Topics Smoking status: Never Smoker Smokeless tobacco: Never Used Alcohol use: No Drug use: No Sexual activity: Not Currently Prior to Admission medications as of 01/05/18 1543 Medication Sig Last Dose Taking Tertenmnkvmmm-Ut-Vvjb-Minerals tab Take by mouth once daily. Yes meloxicam (MOBIC) 15 mg tablet TAKE 1 TABLET EVERY DAY Yes loratadine 10 mg cap Take 10 mg by mouth daily at bedtime. Yes DULoxetine (CYMBALTA) 30 mg capsule Take 1 capsule by mouth once daily. Yes No medication comments found. ALLERGIES No Known Allergies REVIEW OF SYSTEMS: PAIN ASSESSMENT: General: No weight loss, malaise or fevers. Neuro: Postive for Impaired Sensorium in hands; No history of TIAs, stroke, headaches, tremors, BUTTON MAKER AND INSTALLER tumor, hemiplegia, paraplegia, quadriplegia. Respiratory: SAGASTUME due to pain in hip-no issues prior to hip pain; No history of current cough, dyspnea, bronchitis or pneumonia in the last 6 weeks. No history of asthma or COPD. Cardiovascular: +BLE edema after being on feet; Negative for HTN, chest pain, orthopnea, PND, dizziness, lightheadedness or syncope. Negative for heart murmur. Negative for palpitations or arrhythmia. Negative for h/o DVT/PE. No WI or heart surgery GI: No history of GI symptoms or problems. No history of esophageal varices, recent ascites, or ETOH greater than 2 drinks per day. 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 : Denies, No LMP recorded. Patient has had a hysterectomy. Endocrine: No history of diabetes. Has not taken steroids within the past 30 days. No history of endocrinological symptoms or problems. Hematology: No history of bleeding or clotting disorder. Pt is not taking anti-coagulation or platelet medications. No history of hematological symptoms or problems. Oncology: No history of CA metastasis, chemo within 30 days, or radiotherapy within 90 days. Has not lost 10% of body wt in 6 months. No history of oncological symptoms or problems. Psych: Depression-treated Musculoskeletal: See HPI; no back pain Skin: Negative for lesions, rash and itching. Objective PHYSICAL EXAM: VITALS: BP 124/80 Pulse 79 Temp (Src) 98.2 (Temporal Artery) Ht 5' 2 (1.58m) Wt 202 lb (91.6kg) SpO2 96% BMI 36.94 kg/(m2). General: Alert and oriented, No acute distress, Obese Skin: Normal color, no rash, no lesions. HEENT: EOM, pupils equal, round and reactive., No carotid bruits Cardiovascular: Normal S1 AND S2, no rubs, murmurs or gallops. No JVD. Pulse regular. Lungs: Normal breath sounds, no wheezes or crackles., No chest deformities or chest wall tenderness. Abdomen: Soft, non-tender, no rigidity., No masses or organomegaly. Extremities: No deformity, no edema or tenderness, no joint swelling or clubbing. Neurological: Normal cognition and motor skills. Abnormal gait -cane Pulses: Carotid and radial pulses normal +2. Diagnostic tests reviewed for today's visit: Lab Value Units Date High Low HB No results within date range. HCT No results within date range. WBC No results within date range. PLT No results within date range. NA No results within date range. K No results within date range. GLUC No results within date range. BUN No results within date range. CREAT No results within date range. PTSEC No results within date range. INR No results within date range. APTT No results within date range. ALT No results within date range. AST No results within date range. TBILI No results within date range. TSH No results within date range. Lab Value Units Date High Low HCGQT No results within date range. UHCG No results within date range. HCG, BODY* No results within date range. Lab Value Units Date High Low ABORHD No results within date range. ABSCREEN No results within date range. No results found for: HBA1C Most recent labs Most recent imaging Most recent EKG: normal sinus rhythm, normal axis, normal intervals, reviewed by tar pot man. All in Epic Assessment ASSESSMENT Patient has the following medical conditions BMI 36.94 S/p RTHA Left hip pain METS: Take care of self; that is eating, dressing, bathing, using the toilet (2.75 METs) Patient denies any chest pain or undue shortness of breath with the above physical activity. ASA Class: 3 ANESTHESIA FINDINGS: Intubation History: No history of difficult intubation Significant Anesthesia Considerations: None and Difficult IV/Vein Access: no Airway Exam: General: Normal appearance Mallampati Score is CLASS II ULBT: Class I - Lower incisors can bite the upper lip above the hal line Neck: Normal appearance and function, Distance from hyoid to mentum during neck extension is at least 3 finger breaths Mouth: Normal tongue size and Mouth opening greater than 2 finger breaths Dentition: Intact Airway History: No history of difficult intubation STOP BANG Score: Criteria: BMI > 35 Age over 50 (62 year old) Neck circumference > 15.75 inches Score = 3 PLAN This patient is optimally prepared for surgery pending LABS. CONSULTS: Patient does not require consults for optimization at this time. The Following Tests/Procedures Have Been Initiated: Orders Placed This Encounter SAPCR CBC + DIFF COMP METABOLIC PANEL FERRITIN BLD IRON + TIBC URINALYSIS WITH MICROSCOPIC CONFIRM BLOOD TYPE TYPE + SCREEN,30 DAY URINE CULTURE Order Specific Question: Source Answer: URINE-MIDSTREAM CLEAN CATCH Planned Anesthetic: Per anesthesia choice Instructions Given to Patient: Patient given verbal and written preop instructions and voices comprehension and compliance. SIGNATURE: Gracie Cruz PA-C PATIENT NAME: Leslie Davis DATE: January 05, 2018 TIME: 3:44 PM PAGER/CONTACT #: [email or web address] Observed: 12/22/2017 Status: COMPLETED Source: [place] 2:43 PM [facility] REPOSITORY HNO ID: [id number] Author: Ishaan Gregorio Service: (none) Author Type: Physician Type: Progress Notes Filed: 01/06/2018 11:05 AM Note Text: CONSULT ORTHOPAEDIC: HIP PRIMARY CARE PHYSICIAN: Natalie Horner CNP REFERRING PROVIDER: ER Staff [address] [address] ASSESSMENT AND PLAN: Impression: Left Hip Severe Degenerative Osteoarthritis, Secondary and Avascular Necrosis, Idiopathic Leslie Davis has radiograph and physical exam evidence of degenerative joint disease and wishes to pursue surgery. This patient appears to have sufficient symptoms to warrant surgical intervention and is an appropriate candidate for left Primary Total Hip Arthroplasty as evidenced by six months of unsuccessful non-operative treatment as outlined in the HPI below and progressive symptoms. Progressive symptoms include: Pain impacting sleep or causing fatigue Pain worsened by weight bearing Pain effecting living situation Pain limiting ability to stay fit and healthy. We had a lengthy discussion regarding the risk and benefit of surgery, the alternatives, limitations and personnel involved. These included but were not limited to infection, persistent pain, instability, nerve injury, blood clots, and medical complications. We also discussed the pre-operative course, surgery itself and rehabilitation. Katharina-operative blood management and transfusion issues were discussed, and options clearly outlined. The patient has consented to the use of the banked allogenic blood if medically necessary. The patient has elected to schedule surgery at this time or intends to call the office with a surgical date. Shared decision making occurred while obtaining informed consent. The patient will be scheduled for a pre-operative education class at which time they will have their nasal swab completed and will be given CHG cloths along with the verbal and written instructions for their use. The patient has been ordered: Nasal Swab Culture Anemia Screen Albumin Level CONSULTS: Patient does not require consults for optimization at this time. ACTIVE PROBLEM LIST Obesity Right-Sided Low Back Pain With Right-Sided Sciatica Depression Seasonal Allergies Low Back Pain With Left-Sided Sciatica SUBJECTIVE CHIEF COMPLAINT: Hip Pain HPI: Leslie Davis is a 62 year old female here for evaluation and management of Left hip pain. She has had progressive problems with the hip(s) constantly over the past 6 month(s) interfering with activities which include doing caving guide, participating in family activities, enjoying hobbies, walking, rising from a sitting position, standing for prolonged periods of time, getting in and out of a car and climbing stairs. The problem began limiting activities 7-12 months ago. Currently the pain in the joint is rated at 3 out of 10 with minimal activity. The pain is constant and is located in the left hip and groin. The pain is described as sharp. Relieving factors include no relieving factors. There is no specific incident that brought about this pain. She has no additional complaints. FUNCTIONAL STATUS: Walk a block or two on level ground (2.75 METs) Preoperative Ambulatory Status: Impaired Community Distances Number of Entry Steps: 4 Bedroom Location: First floor Bathroom Location: First floor Caregiver Assistance: Consistent/Live-In (5-7 days/wk) Home Location: Up to 150 miles PREVIOUS TREATMENTS: Attempted Weight Loss Medical: RX NSAIDS for 3 Months or Greater (meloxicam (Mobic)) REVIEW OF SYSTEMS: PAIN ASSESSMENT: See HPI. MUSCULOSKELETAL: See HPI. Surgical Risk Factors: None PAST MEDICAL HISTORY Diagnosis Date - Depression - Obesity - Osteoarthritis hands - Seasonal allergies - Septic joint (HCC) Right great toe - Shingles - Varicose veins of legs PAST SURGICAL HISTORY Procedure Laterality Date - CHOLECYSTECTOMY 1999 [place] - COLONOSCOPY 2013 normal, peformed by Dr. Nguyen - [place] TOTAL ABDOMINAL HYSTERECTOMY 2000 FAMILY HISTORY Problem Relation Age of Onset - Diabetes Mother - Breast Cancer Sister 61 - Diabetes Brother - Stroke Brother - Diabetes Brother - Cancer Father gastric - Coronary Artery Disease Father [place] x3 Social History Marital status: Unknown Spouse name: Years of education: Number of children: Social History Main Topics Smoking status: Never Smoker Smokeless tobacco: Never Used Alcohol use: No Drug use: No Sexual activity: Not Currently ALLERGIES: Patient has no known allergies. MEDICATIONS: meloxicam (MOBIC) 15 mg tablet TAKE 1 TABLET EVERY DAY loratadine 10 mg cap Take 10 mg by mouth daily at bedtime. DULoxetine (CYMBALTA) 30 mg capsule Take 1 capsule by mouth once daily. PHYSICAL EXAM BP 126/88 Pulse 84 Ht 157.5 cm (5' 2) Wt 89.9 kg (198 lb 3.2 oz) BMI 36.25 kg/m? All other systems deferred. GENERAL: Appears healthy, well-nourished, no deformities. HABITUS: Obese GAIT: Antalgic to the left HIP EXAM: Left: ROM: Extension: slight flexion contracture Flexion: 90 degrees Internal Rotation: 10 degrees External Rotation: 20 degrees Abduction: 15 degrees Adduction: 20 degrees Strength: Abduction 5/5, Flexion 4/5 and Pain with resisted hip flexion Palpation: No tenderness Log roll: painful. Straight leg raise: Negative Neurovascular Status: Sensation Intact, Moves foot and ankle up AND down and 2+ dorsalis pedis DATA: Diagnostic tests reviewed for today's visit: Most recent films The following conditions were addressed during the office visit today: Obesity - Weight management strategies SIGNATURE: Ishaan Gregorio MD PATIENT NAME: Leslie Davis DATE: December 22, 2017 TIME: 2:43 PM PROGRESS Observed: 12/22/2017 Status: COMPLETED Source: [place] 2:13 PM [facility] REPOSITORY O ID: [id number] Author: Monserrat Soto Ma Service: (none) Author Type: (none) Type: Progress Notes Filed: 01/06/2018 11:05 AM Note Text: AMB ROOMING INTAKE FLOWSHEET DATA Risk Screening Do you have concerns about personal safety or safety in the home?: No Pain Pain Score: 3/10 Pain Location: Hip-Left Description: Aching, Sharp Duration Amount of Time: 6 Duration Units: Months Frequency: Continuous Intervention: Medication Patient here today for evaluation of left hip pain x 6 months. States she has been compensating for the right hip and now the left is bothering her. She is still working at [employer]. X-ray done at [facility] on 11/29/2017. CNOV Observed: 12/22/2017 Status: COMPLETED Source: [place] 1:40 PM [facility] REPOSITORY Office Visit (ORTHWS) LESLIE DAVIS ([id number]) 1955 F Date Time Provider Department 12/22/17 1:40 PM ISHAAN GREGORIO During your visit today, we recorded the following information about you: Pulse Blood pressure Weight Height 84/minute 126/88 89.9 kg 1.575 m Monserrat Soto Ma 01/06/2018 11:05 AM Signed AMB ROOMING INTAKE FLOWSHEET DATA Risk Screening Do you have concerns about personal safety or safety in the home?: No Pain Pain Score: 3/10 Pain Location: Hip-Left Description: Aching, Sharp Duration Amount of Time: 6 Duration Units: Months Frequency: Continuous Intervention: Medication Patient here today for evaluation of left hip pain x 6 months. States she has been compensating for the right hip and now the left is bothering her. She is still working at [employer]. X-ray done at [facility] on 11/29/2017. Ishaan Gregorio MD 01/06/2018 11:05 AM Signed CONSULT ORTHOPAEDIC: HIP PRIMARY CARE PHYSICIAN: Natalie Horner CNP REFERRING PROVIDER: ER Staff [place] [address] [facility] [address] ASSESSMENT AND PLAN: Impression: Left Hip Severe Degenerative Osteoarthritis, Secondary and Avascular Necrosis, Idiopathic Leslie Davis has radiograph and physical exam evidence of degenerative joint disease and wishes to pursue surgery. This patient appears to have sufficient symptoms to warrant surgical intervention and is an appropriate candidate for left Primary Total Hip Arthroplasty as evidenced by six months of unsuccessful non-operative treatment as outlined in the HPI below and progressive symptoms. Progressive symptoms include: Pain impacting sleep or causing fatigue Pain worsened by weight bearing Pain effecting living situation Pain limiting ability to stay fit and healthy. We had a lengthy discussion regarding the risk and benefit of surgery, the alternatives, limitations and personnel involved. These included but were not limited to infection, persistent pain, instability, nerve injury, blood clots, and medical complications. We also discussed the pre-operative course, surgery itself and rehabilitation. Katharina-operative blood management and transfusion issues were discussed, and options clearly outlined. The patient has consented to the use of the banked allogenic blood if medically necessary. The patient has elected to schedule surgery at this time or intends to call the office with a surgical date. Shared decision making occurred while obtaining informed consent. The patient will be scheduled for a pre- operative education class at which time they will have their nasal swab completed and will be given CHG cloths along with the verbal and written instructions for their use. The patient has been ordered: Nasal Swab Culture Anemia Screen Albumin Level CONSULTS: Patient does not require consults for optimization at this time. ACTIVE PROBLEM LIST Obesity Right-Sided Low Back Pain With Right-Sided Sciatica Depression Seasonal Allergies Low Back Pain With Left-Sided Sciatica SUBJECTIVE CHIEF COMPLAINT: Hip Pain HPI: Leslie Davis is a 62 year old female here for evaluation and management of Left hip pain. She has had progressive problems with the hip(s) constantly over the past 6 month(s) interfering with activities which include doing caving guide, participating in family activities, enjoying hobbies, walking, rising from a sitting position, standing for prolonged periods of time, getting in and out of a car and climbing stairs. The problem began limiting activities 7-12 months ago. Currently the pain in the joint is rated at 3 out of 10 with minimal activity. The pain is constant and is located in the left hip and groin. The pain is described as sharp. Relieving factors include no relieving factors. There is no specific incident that brought about this pain. She has no additional complaints. FUNCTIONAL STATUS: Walk a block or two on level ground (2.75 METs) Preoperative Ambulatory Status: Impaired Community Distances Number of Entry Steps: 4 Bedroom Location: First floor Bathroom Location: First floor Caregiver Assistance: Consistent/Live-In (5-7 days/wk) Home Location: Up to 150 miles PREVIOUS TREATMENTS: Attempted Weight Loss Medical: RX NSAIDS for 3 Months or Greater (meloxicam (Mobic)) REVIEW OF SYSTEMS: PAIN ASSESSMENT: See HPI. MUSCULOSKELETAL: See HPI. Surgical Risk Factors: None PAST MEDICAL HISTORY Diagnosis Date - Depression - Obesity - Osteoarthritis hands - Seasonal allergies - Septic joint (HCC) Right great toe - Shingles - Varicose veins of legs PAST SURGICAL HISTORY Procedure Laterality Date - CHOLECYSTECTOMY 1999 - COLONOSCOPY 2012 normal, peformed by Dr. Nguyen - Wade TOTAL ABDOMINAL HYSTERECTOMY 2000 FAMILY HISTORY Problem Relation Age of Onset - Diabetes Mother - Breast Cancer Sister 61 - Diabetes Brother - Stroke Brother - Diabetes Brother - Cancer Father gastric - Coronary Artery Disease Father [place] x3 Social History Marital status: Unknown Spouse name: Years of education: Number of children: Social History Main Topics Smoking status: Never Smoker Smokeless tobacco: Never Used Alcohol use: No Drug use: No Sexual activity: Not Currently ALLERGIES: Patient has no known allergies. MEDICATIONS: meloxicam (MOBIC) 15 mg tablet TAKE 1 TABLET EVERY DAY loratadine 10 mg cap Take 10 mg by mouth daily at bedtime. DULoxetine (CYMBALTA) 30 mg capsule Take 1 capsule by mouth once daily. PHYSICAL EXAM BP 126/88 Pulse 84 Ht 157.5 cm (5' 2) Wt 89.9 kg (198 lb 3.2 oz) BMI 36.25 kg/m? All other systems deferred. GENERAL: Appears healthy, well-nourished, no deformities. HABITUS: Obese GAIT: Antalgic to the left HIP EXAM: Left: ROM: Extension: slight flexion contracture Flexion: 90 degrees Internal Rotation: 10 degrees External Rotation: 20 degrees Abduction: 15 degrees Adduction: 20 degrees Strength: Abduction 5/5, Flexion 4/5 and Pain with resisted hip flexion Palpation: No tenderness Log roll: painful. Straight leg raise: Negative Neurovascular Status: Sensation Intact, Moves foot and ankle up AND down and 2+ dorsalis pedis DATA: Diagnostic tests reviewed for today's visit: Most recent films The following conditions were addressed during the office visit today: Obesity - Weight management strategies SIGNATURE: Ishaan Gregorio MD PATIENT NAME: Leslie Davis DATE: December 22, 2017 TIME: 2:43 PM Referring Provider: ER STAFF [[id number]] Allergies As of Date: 12/22/2017 (No Known Allergies) Date Reviewed: 12/22/2017 Reviewed by: Ishaan Gregorio - Fully Assessed Reason for Visit: New Patient [172] Cmt: Left hip pain [facility] ER 11/29/2017 Primary Visit Diagnosis:Primary osteoarthritis of left hip [M16.12] Other Visit Diagnoses:Chronic left hip pain [M25.552, G89.29] Class 2 obesity without serious comorbidity with body mass index (BMI) of 36.0 to 36.9 in adult, unspecified obesity type [E66.9, Z68.36] Anemia, unspecified type [D64.9] Order(s):PATIENT PLACED ON RORY ALIYAH CARE PATH [7660501] Order #: [id number]: 1 ALBUMIN BLD [SQALB] Order #: [id number] FUTURE VITAMIN B12 BLOOD [SQB12] Order #: [id number] FUTURE FOLATE SERUM [SQSERFOL] Order #: [id number] FUTURE RETIC COUNT [SQRETIC] Order #: [id number] FUTURE TOTAL JOINT REPLACEMENT PRE-SURGERY EDUCATION CLASS [3643451] Order #: [id number]: 1 Prescriptions as of 12/22/2017 Sig: MELOXICAM 15 MG TABLET TAKE 1 TABLET EVERY DAY LORATADINE 10 MG CAPSULE Take 10 mg by mouth daily at * DULOXETINE 30 MG CAPSULE,YASMIN* Take 1 capsule by mouth once * Problem List As Of Date 12/22/2017 Noted Resolved Obesity [E66.9] Right-sided low back pain with right-sided scia*INVALID FOR* Depression [F32.9] Seasonal allergies [J30.2] Low back pain with left-sided sciatica [M54.42] INVALID FOR* Encounter Status:Closed by ISHAAN GREGORIO MD on 01/06/18 SCREENING MAMM (CAD), Observed: 12/03/2017 Status: F Source: [place] B[place] 3:26 PM [facility] REPOSITORY [facility] Imaging Services [address] [place] [address] SCREENING MAMM (CAD), BILAT MR#: [id number] Acct: [id number] Name: LESLIE DAVIS Rep #: [id number] : 1955 F 62 From: Arturo Lomeli MD PCP: [facility] Status: REG CLI Study: SCREENING MAMM (CAD), BILAT Date of Exam: 12/03/17 Exam# [id number] Ordering Dr: Kasi Washburn MAMMOGRAPHY - BILATERAL SCREENING REASON FOR EXAM: Female, 62 years old. Routine annual screening examination. PERTINENT HISTORY: Non-contributory. TECHNIQUE: Digital bilateral breast guy (3D mammographic acquisition) in the CC and MLO projections. 2-D mediolateral oblique (MLO) and craniocaudad (CC) views of both breasts were obtained. CAD: Full Field Digital Mammography with Computer Added Detection was performed. COMPARISON: Comparison is made with prior study dated October 10, 2015 and November 07, 2015. FINDINGS: Breast Composition: There are scattered areas of fibroglandular density. There are no dominant masses or suspicious calcifications. Stable focal asymmetry in the upper deep lateral portion of the left breast. This most likely represents asymmetrical glandular tissue. Stable appearance of the bilateral small axillary lymph nodes. No other significant abnormalities are identified. There has been no significant change since the prior study. BI/SCREENING MAMM (CAD), BILAT IMPRESSION: Stable bilateral screening mammogram. Yearly follow-up mammogram recommended. (A) ASSESSMENT CATEGORY: BIRADS Category 2: Benign. A letter regarding these results will be sent to the patient by the facility within 30 days. Approximately 10% of breast cancers are not detected by mammography. A normal mammogram should not delay biopsy of a clinically suspicious abnormality. [id number] Electronically Signed: Arturo Lomeli MD at 8:58 EDT Tel [phone], Service support , CC: [facility] Armament Mechanic: Signed EMERGENCY DEPARTMENT Observed: 12/03/2017 Status: F Source: [place] SUMMARY 7:19 AM [facility] REPOSITORY [facility] Medical Records Department [address] [place] [address] Emergency Department Summary 11/29/17 1205 MR#: [id number] Acct: [id number] Name: LESLIE DAVIS Rep #: [id number] : 1955 62 From: Jake Calabrese DO PCP: [facility] Status: DEP ER - ER Visit Summary Date of Service: 11/29/17 Chief Complaint: Left hip pain History of Present Illness: The patient is a 62 F who states that yesterday she began have pain in her left hip. She states it is worse with walking. It was not present when she got up only after she began moving. No trauma. She denies any fevers or rashes. She has a history of degenerative joint disease on that side and has had a prior right hip replacement. Physical Examination: Afebrile vital signs are stable Gen: Well-nourished well-developed Head: Normocephalic atraumatic Eyes: Perrl EOMI ENT: TMs clear no rhinorrhea moist mucous membranes Neck: Supple no lymphadenopathy no JVD nontender CVS: Regular rate rhythm no murmurs normal S1-S2 Respiratory: No distress clear to auscultation bilaterally chest nontender Abdomen: Soft nontender nondistended normal bowel sounds no masses Back: Nontender Extremity: Left leg is neurovascularly intact. There is tenderness over the greater trochanter. There is no pain with logrolling. There is pain with AB and adduction and flexion and extension. Skin: Normal color no rash Neuro: alert orientated 3 CN II-XII intact normal strength sensation reflexes gait cerebellar Psych: Normal affect normal mood Test Results: X-rays of hip degenerative joint changes were noted. Emergency Department Course and Treatment: The patient has no pain with logrolling of the hip. Her pain seems to be centered over the greater trochanter. I think is most likely a greater trochanteric bursitis. We will treat with a burst pack of prednisone. She is already on anti-inflammatories. I will write for a few OxyIR. She is to follow-up with her surgeon Dr. Zendejas. Or with her primary care physician. Impression: 1. Left hip greater trochanteric bursitis This note was generated with Clipboard dictation software. It may contain incorrect words, spelling, and punctuation that were not noted in review of the chart prior to signing ED Disposition - Plan for ED Patient: Disposition: Home or Assisted Living Chief Complaint: Lower Extremity Injury Instructions: ED Bursitis Prescriptions: Oxycodone [Oxyir] 5 mg PO Q6H PRN PRN 3 Days #12 tab PRN Reason: hip pain Prednisone [Deltasone] 40 mg PO DAILY #10 tab Referrals: Huseyin Ornelas,Kasi Ramos [Primary Care Provider] - 1 Week if not improving Alex Zendejas MD [STAFF PHYSICIAN] - 1 Week if not improving What to do if you have Problems For any increased pain, shortness of breath, bleeding, nausea or vomiting, chest pain, or any unexpected problems, contact your Primary Care Provider. Call [facility] ([phone]) or report to the closest Emergency Room. Call 911 if necessary. 12/03/17 0719 <Electronically signed by Jake Calabrese DO> Date Jake Calabrese DO Cosigner Signature (If Indicated): Date CC: KASI ORNELAS HIP, UNI W/ PELVIS Observed: 11/29/2017 Status: F Source: [place] 2-3 VIEWS 11:26 AM [facility] REPOSITORY [facility] Imaging Services [address] [place] [id number] HIP, UNI W/ Pelvis 2-3 Views MR#: [id number] Acct: [id number] Name: LESLIE DAVIS Rep #: [id number] : 1955 F 62 From: Jey Landers MD PCP: [facility]I [facility] Status: DEP ER Study: HIP, UNI W/ Pelvis 2-3 Views Date of Exam: 11/29/17 Exam# [id number] Ordering Dr: Jake Calabrese DO STUDY: X-RAY - PELVIS AND LEFT HIP REASON FOR EXAM: Female, 62 years old. Pain. No known injury. TECHNIQUE: Radiological exam, hip, unilateral, with pelvis when performed; 2 or 3 views. COMPARISON: None. FINDINGS: There is a non-specific bowel gas pattern. Normal visualized soft tissue structures. There is total right hip prosthesis. Normal bilateral iliac wings, sacroiliac joints and visualized sacrum. Normal bilateral superior and inferior pubic rami. Normal pubic symphysis. Normal bilateral ischial tuberosities. There are osteoarthritic changes of the femoral head with marginal osteophyte formation. There is cortical sclerosis with sub- cortical cyst formation of the acetabulum. There is severe articular joint space narrowing of the hip. RAD/HIP, UNI W/ Pelvis 2-3 Views IMPRESSION: Severe degenerative arthrosis of the left hip. Status post right hip prosthesis. Electronically Signed: Jey Landers MD at 12:54 EDT Tel , Service support , CC: Jake Calabrese DO; [facility] Armament Mechanic: Signed CR-HIP, UNI W/ Observed: 11/29/2017 Status: F Source: [place] PELVIS 2-3 VIEWS 12:00 AM [facility] REPOSITORY Images were obtained outside of [facility] [id number] DISCHARGE INSTRUCTION Observed: 06/03/2017 Status: F Source: [place] 11:52 AM [facility] REPOSITORY [facility] Medical Records Department [address] [place] [address] Instructions for Home/Discharge Instructions 06/03/17 1151 MR#: [id number] Acct: [id number] Name: LESLIE DAVIS Rep #: [id number] : 1955 61 From: Tiffany Oreilly PCP: [facility] Status: ADM IN Discharge Diet: No Restrictions Discharge Activity: May Not Drive - while taking narcotic pain medications., May not drive while taking narcotic pain medications., Use Walker May shower in (days): 1 - only if incision is dry and without drainage. Do NOT soak/submerge in tub/pool/limon/stream/hot tub. Okay to shower over Mepilex dressing Ice area for (Minutes): 20 - Every hour as needed Weight Bearing Status: Weight bearing as tolerated Elevate: Operative Extremity Additional Activity Instructions:: Wear elastic stockings for 2 weeks. DO NOT use alcohol with narcotic pain medication. DO NOT make important decisions while taking narcotic medication. If you have problems with taking your medication (rash, itching, nausea, etc.) call the office at once. See postoperative pink sheet Call your doctor if your incision/area has: Continuous Slow Oozing, Sudden Increased Bleeding, Increased Pain/ Swelling, Increased Redness, Foul Smelling Discharge, Swelling at the incision site Call your doctor if you observe: Fever of 101 or Higher, Coldness, Increased Pain, Numbness or Tingling, Change in Color, Chest pain, Calf discomfort Remove Dressing in (days):: 5 Cleanse incision/area with: Soap AND Water Additional Dressing/Incision Instructions:: See postoperative pink sheet Additional Instructions: Dr. Alex Zendejas (cell) [phone] Allergies/Adverse Reactions: Allergies No Known Allergies Allergy (Verified 05/14/17 14:55) Medications to take at Discharge Duloxetine HCl 30 mg PO DAILY 06/14/16 Fluticasone 0.05% [Flonase Nasal Sch[place]ield] 2 spray NASAL DAILY PRN 05/14/17 Loratadine 10 mg PO DAILY PRN 05/14/17 Melatonin 1 mg PO DAILY PRN 05/14/17 Acetaminophen [Tylenol] 1,000 mg PO Q8 #30 tab 06/03/17 Aspirin 325 mg PO BID #30 tab 06/03/17 MorphINE [Ms Contin] 15 mg PO BID 7 Days #14 tablet 06/03/17 Oxycodone [Oxyir] 5 - 10 mg PO Q4H PRN PRN 7 Days #56 tablet 06/03/17 Senna/Docusate Sodium [Senokot-S] 2 tab PO BID #30 tab 06/03/17 The following prescriptions were given: Oxycodone [Oxyir] 5 - 10 mg PO Q4H PRN PRN 7 Days #56 tablet PRN Reason: Mod-Severe Pain (-12/31) Acetaminophen [Tylenol] 1,000 mg PO Q8 #30 tab Aspirin 325 mg PO BID #30 tab MorphINE [Ms Contin] 15 mg PO BID 7 Days #14 tablet Senna/Docusate Sodium [Senokot-S] 2 tab PO BID #30 tab Primary Care Physician: [facility] Ceci,Kasi Ramos [Primary Care Provider] - 06/03/17 1152 <Electronically signed by Tiffany Oreilly > Date Tiffany Oreilly CC: [facility] CBC-COMPLETE BLOOD CNT Collected: 06/03/2017 Status: F Source: [place] NO DIFF 4:58 AM [facility] REPOSITORY TYPE CODE TESTS RESULT OUT OF RANGE REFERENCE UNITS LAB L100.1000 4.4-11.0 K/mm3 Normal WBC 6.4 LAB L100.1200 4.2-5.4 M/mm3 Low RBC 3.20 LAB L100.1300 12.0-15.0 g/dl Low HGB 10.4 LAB L100.1400 37-47 % Low HCT 31.8 LAB L100.1500 81-99 fL High MCV 99.4 LAB L100.1600 27.0-32.0 pg High MCH 32.5 LAB L100.1700 32-36 g/gl Normal MCHC 32.7 LAB L100.1810 11.6-14.6 % Normal RDW CV 11.7 LAB L100.1820 35.1-43.9 fl Normal RDW SD 41.0 LAB L100.1900 150-450 K/mm3 Normal PLT 260 LAB L100.2000 6.2-12.0 fl Normal MPV 9.8 Performed By: #### L100.0500 #### [facility] [address] [place], [address] BASIC METABOLIC Collected: 06/03/2017 Status: F Source: [place] PROFILE (BMP) 4:58 AM [facility] REPOSITORY TYPE CODE TESTS RESULT OUT OF RANGE REFERENCE UNITS LAB L501.0100 74-106 mg/dL Normal GLU 89 Result Comment: Please note revised GLUCOSE reference range effective 2017. LAB L501.1000 7-18 mg/dL High BUN 20 LAB L501.1100 0.55-1.02 mg/dL Normal CREAT,SERUM 0.58 Result Comment: The validity of the calculated GFR AND GFRAA in patients over 70 years has not been determined. Clinical correlation is essential. LAB L501.1110 >60 mL/min Normal EST GFR 113 Result Comment: Non- GFR Calc LAB L501.1115 >60 mL/min Normal EST GFR - AA 137 Result Comment: GFR Calc LAB L501.1255 ml/min Normal Estimated CRCL 86.84 LAB L501.1300 10-20 RATIO High BUN/CRE 34.8 LAB L501.2200 8.5-10 mg/dL Low .1 CA 8.3 LAB L501.5300 136-14 mmol/L Normal 5 NA 140 LAB L501.5600 3.5-5. mmol/L Normal 1 K 4.1 LAB L501.5900 98-107 mmol/L Normal CL 107 LAB L501.6100 21.0-3 mmol/L Normal 2.0 CO2 26.0 LAB L501.6200 5-15 Normal GAP 7 Performed By: #### L500.2500 #### [facility] [address] [facility] [place], [address] OPERATIVE REPORT Observed: 06/02/2017 Status: F Source: [place] 11:51 AM [facility] REPOSITORY [facility] Medical Records Department [address] [place] [address] Operative Report 06/02/17 1147 MR#: [id number] Acct: [id number] Name: LESLIE DAVIS Rep #: [id number] : 1955 61 From: Alex Zendejas MD PCP: [facility] Status: ADM IN Location: [place] [address] Operative Report Date of Procedure: 06/02/17 Preoperative diagnosis: [Right] hip primary osteoarthritis Postoperative diagnosis: Same Operation: [Right] total hip replacement surgery Surgeon: Dr. Alex Zendejas MD [place] Supervisor: Tiffany Oreilly PA-C Second medical services assistant yes Anesthesia: Spinal Anesthesiologist Dr. Quevedo Special medications: IV [Ancef], IV Tranexamic acid Indications for surgery : Patient is a [ 61]-year-old [female] with a long-standing history of [right] severe hip pain that has failed adequate nonoperative treatment. Due to persistent pain and disability, they decided to proceed with hip replacement surgery. Appropriate informed consent was obtained and signed. Appropriate medical workup was performed preoperatively and patient was deemed safe for surgery by the anesthesia department manufacturing assistant, physician medical services assistant, was utilized throughout the entire procedure. They were vital in helping with patient positioning, holding of retractors, exposing the tissues adequately for safe completion of the procedure including cutting of the bone, helping vmware administrator appropriate alignment and sizing of the components, implantation of the components, as well as wound closure, bandage application, and safe patient transfer. Without surgical elastic knitter, physician medical services assistant, surgical time would have been significantly increased, and surgical outcome would have been less optimal. Operative findings: Patient had severe arthritis of the involved hip joint. They underwent a small posterior approach to the hip. We utilized a size [5 press-fit Accolade 2 stem] 127 degree neck angle, a press fit acetabular component size [50] titanium cluster, Trident X3 polyethylene liner with a 36 mm inner diameter, a Biolox ceramic femoral head size [36] with a +0 neck length. This reproduced there anatomy nicely. Clinically good leg lengths were noted. Good hip stability through range of motion with no undue pistoning. Standard wound closure in layers, followed by myah, followed by Mepilex dressing Details of procedure: Patient was taken to the operating room and transferred to the operating table. Given appropriate anesthetic agent by that department. Patient was then rolled into a lateral decubitus position with the involved painful hip up in the air. Appropriate timeouts had been performed. Hip had been appropriately marked with my initials. Padded anterior and posterior position was utilized. Axillary roll placed. FARIDEH hose and SCDs on the nonoperative limb utilized throughout the procedure. Tranexamic acid IV antibiotics given preoperatively. Operative lower extremity was prepped padded and draped in the usual orthopedic sterile fashion for the procedure. I injected the pain relieving solution in the standard sterile technique of the soft tissues of the hip carefully. Incision was made curving over the tip of the greater trochanter posteriorly. Full thickness skin flaps are raised down on the fascia anthony. Fascia anthony was opened in length with our incision. Charnley self- retaining hip retractor was carefully placed by the surgeon. Leg was appropriately rotated by the medical services assistant. Retractor was used to lift the abductors anteriorly to visualize the piriformis tendon and external rotators. Piriformis tendon and external rotators released off the greater trochanter with the Bovie. Tagging suture was placed in each of these separately. We then split the tissue superior to the piriformis tendon through capsule and onto the pelvis. Acetabular labrum was also divided. With traction and manipulation arthritic femoral head was dislocated from the pelvis. Retractors were carefully placed around the femoral neck. Cutting guide was utilized to map out the proposed cut approximately 1 fingerbreadth above the lesser trochanter. This femoral neck cut was carried out with a saw. Arthritic femoral head removed and measured and inspected. Inferior acetabular retractor was placed by the surgeon, held by the medical services assistant. Bone hook utilized to pull the proximal femur anteriorly, then replaced by a pointed Hohmann. Labrum removed from about the acetabulum a long knife. Tissue removed from the depth of the acetabulum with the Bovie. Arthritic acetabulum was noted. We began reaming with the appropriate sized reamer based on the measurement of the femoral head. Reaming was done with 45 of abduction, 20 of anteversion, reproducing there anatomy. Reaming was done incrementally up to the appropriate size creating a smooth cylindrical acetabulum was done down to healthy bone. Trial acetabular component 1 millimeters smaller than the largest reamer was utilized with the outrigger device. Appropriate abduction and anteversion confirmed as well as size and position of cup. We irrigated with bulb syringe saline. Appropriate acetabular opponent was opened and hammered into position with the outrigger device, with 45 of abduction and 20 degrees of anteversion. We could see through the hole in thrb cup it was adequately down onto the bone in the pelvis. Good stability was noted. Trial liner with a 10 sexton was appropriately positioned. Any anterior and/ or posterior osteophytes removed with an osteotome, rondure. Acetabular retractors removed. A proximal femoral elevator utilized. Held by the medical services assistant. We placed a pointed Homans at the anterior and posterior aspect of that retractor by the other medical services assistant. We used a sharp awl entering down inside the bone of the proximal femur. Utilized the cookie cutting osteotome the proximal lateral greater trochanteric region. The fragment removed. Broaching was then done from the smallest broach, upto the appropriate size. Good stability was confirmed. We then trialed the construct with a standard neck length and appropriate sized femoral head on 127 angle neck. We were happy with the construct. Good stability to flexion, rotation. At this point trials removed. Now placed the appropriate polyethylene acetabular liner into a clean dry previously placed shell. This was hammered into position. Suction device was used to confirm its stability. We now exposed the proximal femur appropriate retractors in place, actual femoral stem was checked, opened, and then hammered into the proximal femur and seated down to a similar position as the trial had. We now again trialed appropriate neck length upon. It was then opened. Now impacted the appropriate sized femoral head, neck construct onto the clean dried trunion. Was noted to be stable. Hip was inspected, and joint was reduced for a final time. Good hip stability and leg lengths noted. Now placed sterile Betadine solution in the hip joint for 3 minutes. This was then irrigated with saline and cleaned. Next the remainder of the pain relieving solution was injected carefully throughout the soft tissues of the hip joint. Closure was carried out with a combination of #1 Vicryl, running #2 strata fix in the fascia anthony, followed by mid layer #1 Vicryl with #1 strata fix running. Next running 0 strata fix, followed by skin myah, Xeroform, Mepilex dressing. We placed FARIDEH hose and SCD on the operative leg. Patient awoken from the anesthetic and transferred back to room bed in recovery room in satisfactory condition. Patient will be admitted for pain management, IV antibiotics, medication for DVT prevention. Hospitalist consulted for postoperative medical management. Hopeful discharge to home in 1-3 days This note was generated with Clipboard dictation software. It may contain incorrect words, spelling, and punctuation that were not noted in checking the note before signing. 06/02/17 1151 <Electronically signed by Alex Zendejas MD> Date Alex Zendejas MD CC: Alex Zendejas MD; [facility] Signed TOTAL HIP REPLACEMENT Observed: 06/02/2017 Status: F Source: [place] 9:55 AM [facility] REPOSITORY Patient: LESLIE DAVIS : 1955 (61/F) Acct Num: [id number] Phys: Vincent ARGUETA,Alex Unit Num: [id number] Loc: MS3 [id number] Specimen: [id number] Received: 06/02/17 - 1307 Spec Type: TOTAL HIP TISSUES TISSUES: Hip, NOS GROSS DESCRIPTION Received is one container designated right femoral head and soft tissue. The specimen consists of a morales femoral head with portion of femoral neck. The femoral head measures 4.5 x 5 x 4.5 cm and the portion of femoral neck measures 1.5 cm in length. The articular surface displays prominent osteophyte formation , eburnation and bone erosion. Also present in the specimen container are multiple irregular fragments of bone reamings measuring in aggregate 6 x 6 x 1.5 cm. Foreign Exchange Trader sections are submitted in three cassettes as follows: 1 bone reamings, 2 AND 3 femoral head after decalcification. / LYRIC:shania 06/02/17 TC: 5 CPT: 56830, 00598 HEADER OPERATION: Right total hip replacement PRE-OP DIAGNOSIS: Right hip severe primary osteoarthritis TISSUE SUBMITTED: Right femoral head and soft tissue MICROSCOPIC DESCRIPTION Slides are reviewed. MICROSCOPIC DIAGNOSIS Right femoral head and soft tissue, total hip replacement/resection: Femoral head with degenerative osteoarthritic changes. SJ:shania 06/09/17 Signed Maurilio Ivey 06/09/17 <signature on file> Performed By: #### PHIP #### [facility] [address] [place] [address]. [place], [address] HIP MIN 2 VIEWS Observed: 06/02/2017 Status: F Source: [place] (PORTABLE) 9:35 AM [facility] REPOSITORY [facility] Imaging Services [address] [address] Hip Min 2 Views (Portable) MR#: [id number] Acct: [id number] Name: LESLIE DAVIS Rep #: [id number] : 1955 F 61 From: Arturo Lomeli MD PCP: KASI [facility] Status: ADM IN Study: Hip Min 2 Views (Portable) Date of Exam: 06/02/17 Exam# [id number] Ordering Dr: Alex Zendejas MD STUDY: X-RAY - PELVIS AND RIGHT HIP REASON FOR EXAM: Female, 61 years old. Right hip replacement. TECHNIQUE: Radiological exam, hip, unilateral, with pelvis when performed; 1 view COMPARISON: None. FINDINGS: The patient is status post right total hip replacement. Good alignment. Postoperative soft tissue changes. Moderate to severe left osteoarthritis. RAD/Hip Min 2 Views (Portable) IMPRESSION: Status post right total hip replacement. There is good alignment. Postoperative soft tissue changes. Electronically Signed: Arturo Lomeli MD at 15:48 EDT Tel [phone], Service support , CC: Alex Zendejas MD; [email or web address] Armament Mechanic: Signed 12 LEAD ELECTROCARDIOGRAM Observed: 05/16/2017 Status: F Source: [place] 1:32 PM [facility] REPOSITORY [facility] Cardiovascular Services [address] [place] [address] EKG - [facility] 05/14/17 1529 MR#: [id number] Acct: [id number] Name: LESLIE DAVIS Rep #: [id number] : 1955 61 From: Perry Márquez MD Attending Dr: Alex Zendejas MD Status: PRE IN Ordering Dr: Alex Zendejas MD Date: 05/14/17 Location: [facility] Sex: F C Admitted: Test Reason : Blood Pressure : / mmHG Vent. Rate : 077 BPM Atrial Rate : 077 BPM P-R Int : 142 ms QRS Dur : 072 ms QT Int : 378 ms P-R-T Axes : 042 056 030 degrees QTc Int : 427 ms Normal sinus rhythm Normal ECG Confirmed by YULISA ARGUETA, PERRY ([id number]), supervising editor trailer EMELYN ZENDEJAS ([id number]) on 05/16/2017 1:32:07 PM Referred By: Alex Zendejas Confirmed By:PERRY MÁRQUEZ MD 05/16/172 Date Perry Márquez MD CC: Alex Zendejas MD; [email or web address]] Date Dictated: 05/14/171528 Date Transcribed: 05/14/171528 Armament Mechanic: Signed CBC-COMPLETE BLOOD CNT Collected: 05/14/2017 Status: F Source: [place] NO DIFF 3:30 PM [facility] REPOSITORY TYPE CODE TESTS RESULT OUT OF RANGE REFERENCE UNITS LAB L100.1000 4.4-11.0 K/mm3 Normal WBC 7.8 LAB L100.1200 4.2-5.4 M/mm3 Low RBC 3.77 LAB L100.1300 12.0-15.0 g/dl Normal HGB 12.4 LAB L100.1400 37-47 % Normal HCT 37.4 LAB L100.1500 81-99 fL High MCV 99.2 LAB L100.1600 27.0-32.0 pg High MCH 32.9 LAB L100.1700 32-36 g/gl Normal MCHC 33.2 LAB L100.1810 11.6-14.6 % Normal RDW CV 12.1 LAB L100.1820 35.1-43.9 fl Normal RDW SD 43.0 LAB L100.1900 150-450 K/mm3 Normal PLT 325 LAB L100.2000 6.2-12.0 fl Normal MPV 9.9 Performed By: #### L100.0500 #### [facility] [address] [place], [address] BASIC METABOLIC Collected: 05/14/2017 Status: F Source: [place] PROFILE (BMP) 3:30 PM [facility] REPOSITORY TYPE CODE TESTS RESULT OUT OF RANGE REFERENCE UNITS LAB L501.0100 74-106 mg/dL Normal GLU 97 Result Comment: Please note revised GLUCOSE reference range effective 2017. LAB L501.1000 7-18 mg/dL High BUN 26 LAB L501.1100 0.55-1.02 mg/dL Normal CREAT,SERUM 0.82 Result Comment: The validity of the calculated GFR AND GFRAA in patients over 70 years has not been determined. Clinical correlation is essential. LAB L501.1110 >60 mL/min Normal EST GFR 75 Result Comment: Non- GFR Calc LAB L501.1115 >60 mL/min Normal EST GFR - AA 91 Result Comment: GFR Calc LAB L501.1255 ml/min Normal Estimated CRCL 61.43 LAB L501.1300 10-20 RATIO High BUN/CRE 31.7 LAB L501.2200 8.5-10 mg/dL Normal .1 CA 9.2 LAB L501.5300 136-14 mmol/L Normal 5 NA 142 LAB L501.5600 3.5-5. mmol/L Low 1 K 3.4 LAB L501.5900 98-107 mmol/L Normal CL 105 LAB L501.6100 21.0-3 mmol/L Normal 2.0 CO2 29.0 LAB L501.6200 5-15 Normal GAP 8 Performed By: #### L500.2500 #### [facility] [address]. [place], [place], [address] Observed: 05/14/2017 Status: F Source: [place] MRSA/SAID SCREEN 3:30 PM [facility] REPOSITORY MRSA/SAID SCRN S. AUREUS S. aureus Negative MRSA MRSA Negative Performed By: #### M100.651 #### [facility] [address] [facility] [place], [address] CBC W/DIFF, AUTOMATED Collected: 05/01/2017 Status: F Source: [place] 12:16 PM [facility] REPOSITORY TYPE CODE TESTS RESULT OUT OF RANGE REFERENCE UNITS LAB L100.1000 4.4-11.0 K/mm3 Normal WBC 6.5 LAB L100.1200 4.2-5.4 M/mm3 Low RBC 4.01 LAB L100.1300 12.0-15.0 g/dl Normal HGB 13.0 LAB L100.1400 37-47 % Normal HCT 39.6 LAB L100.1500 81-99 fL Normal MCV 98.8 LAB L100.1600 27.0-32.0 pg High MCH 32.4 LAB L100.1700 32-36 g/gl Normal MCHC 32.8 LAB L100.1810 11.6-14.6 % Normal RDW CV 12.4 LAB L100.1820 35.1-43.9 fl High RDW SD 44.9 LAB L100.1900 150-450 K/mm3 Normal PLT 314 LAB L100.2000 6.2-12.0 fl Normal MPV 9.4 LAB L100.2100 47-70 % Normal NEUT% 59.5 LAB L100.2200 19-41 % Normal LY% 30.0 LAB L100.2300 0-10 % Normal MONO% 7.2 LAB L100.2400 0-5 % Normal EO% 2.5 LAB L100.2500 0-1 % Normal BASO% 0.6 LAB L100.2550 0.0-0.9 % Normal IM GRAN % 0.200 Result Comment: IG% - Immature Granulocytes (promyelocytes, myelocytes and metamyelocytes) > 1% indicates that a LEFT SHIFT is Present. LAB L100.2620 2.0-7.7 X10 3/uL Normal Absolute Neut 3.9 LAB L100.2720 0.83-4.51 X10 3/ul Normal Absolute Lymph 1.95 Performed By: #### L100.0100, L101.9900 #### [facility] [address] [place], [place], [address] ERYTHROCYTE SED RATE Collected: 05/01/2017 Status: F Source: [place] 12:16 PM [facility] REPOSITORY TYPE CODE TESTS RESULT OUT OF RANGE REFERENCE UNITS LAB L102.0000 0-30 mm/hr Normal SED RATE 23 Performed By: #### L100.0100, L101.9900 #### [facility] [address] [place], [place], [address] CRP, HIGH SENSITIVITY Collected: 05/01/2017 Status: F Source: [place] CARDIAC 12:16 PM [facility] REPOSITORY TYPE CODE TESTS RESULT OUT OF RANGE REFERENCE UNITS LAB L501.6750 mg/L Normal CRP HIGH 2.75 SENS Result Comment: Low Relative Risk of CVD <1.0 mg/L Average Relative Risk of CVD 1.0 - 3.0 mg/L High Relative Risk of CVD >3.0 mg/L Performed By: #### L501.6750 #### [facility] [address] [place], [place], [address] CBC W/DIFF, AUTOMATED Collected: 04/03/2017 Status: F Source: [place] 12:07 PM [facility] REPOSITORY TYPE CODE TESTS RESULT OUT OF RANGE REFERENCE UNITS LAB L100.1000 4.4-11.0 K/mm3 High WBC 13.3 LAB L100.1200 4.2-5.4 M/mm3 Low RBC 3.94 LAB L100.1300 12.0-15.0 g/dl Normal HGB 12.6 LAB L100.1400 37-47 % Normal HCT 38.5 LAB L100.1500 81-99 fL Normal MCV 97.7 LAB L100.1600 27.0-32.0 pg Normal MCH 32.0 LAB L100.1700 32-36 g/gl Normal MCHC 32.7 LAB L100.1810 11.6-14.6 % Normal RDW CV 12.5 LAB L100.1820 35.1-43.9 fl High RDW SD 45.1 LAB L100.1900 150-450 K/mm3 Normal PLT 351 LAB L100.2000 6.2-12.0 fl Normal MPV 9.8 LAB L100.2100 47-70 % High NEUT% 90.6 LAB L100.2200 19-41 % Low LY% 4.9 LAB L100.2300 0-10 % Normal MONO% 4.3 LAB L100.2400 0-5 % Normal EO% 0.0 LAB L100.2500 0-1 % Normal BASO% 0.0 LAB L100.2550 0.0-0.9 % Normal IM GRAN % 0.200 Result Comment: IG% - Immature Granulocytes (promyelocytes, myelocytes and metamyelocytes) > 1% indicates that a LEFT SHIFT is Present. LAB L100.2620 2.0-7.7 X10 3/uL High Absolute Neut 12.0 LAB L100.2720 0.83-4.51 X10 3/ul Low Absolute Lymph 0.65 Performed By: #### L100.0100, L101.9900 #### [facility] [address] [facility] [place], [address] ERYTHROCYTE SED RATE Collected: 04/03/2017 Status: F Source: [place] 12:07 PM [facility] REPOSITORY TYPE CODE TESTS RESULT OUT OF RANGE REFERENCE UNITS LAB L102.0000 0-30 mm/hr High SED RATE 40 Performed By: #### L100.0100, L101.9900 #### [facility] [address] [place], [address] CRP Collected: 04/03/2017 Status: F Source: [place] 12:07 PM [facility] REPOSITORY TYPE CODE TESTS RESULT OUT OF RANGE REFERENCE UNITS LAB L501.6710 0.0-3.0 mg/L High 13.10 C-REACTIVE PROT Result Comment: C-Reactive Protein (CRP) provides useful information for the diagnosis, therapy and monitoring of inflammatory processes and associated diseases. For the evaluation of Relative Risk for Cardiovascular Disease, a High Sensitivity CRP (HSCRP) should be ordered. Performed By: #### L501.6710 #### [facility] [facility] [place], [address] EMERGENCY DEPARTMENT Observed: 04/02/2017 Status: F Source: [place] SUMMARY 4:22 PM [facility] REPOSITORY [facility] Medical Records Department [address] [place] [address] Emergency Department Summary 04/02/17 1524 MR#: [id number] Acct: [id number] Name: LESLIE DAVIS Rep #: [id number] : 1955 61 From: Janak Metcalf MD PCP: KASI ORNELAS Status: DEP ER - ER Visit Summary Date of Service: 04/02/17 Chief Complaint: Right knee pain History of Present Illness: The patient is a 61 F history of arthritis with a pending a right hip replacement several months. Patient states she was getting in a car and started having right knee pain. Relates that there is no significant trauma. This occurred yesterday evening. She denies any fever. Says her knee hurts more to move it. No prior knee surgery. Physical Examination: Well-appearing 61-year-old female. Vital signs are stable afebrile. He does not look septic or toxic in any acute distress. For now HEENT exam unremarkable. Neck nontender. Lungs clear to auscultation bilaterally. Heart regular rate and rhythm no murmur. Abdomen is soft nontender. Extremities she moves all 4. Neurovascular intact. The right knee is tender to palpation diffusely. No history it is not significantly swollen. It is not warm to touch. It is not red there are no signs of septic joint. There are no gross bony deformities. She is able to flex extend both the right hip and right knee but has more pain with flexion of the right knee. Right foot is neurovascular intact. DP pulses intact. Other extremities are unremarkable currently. Test Results: X-ray of the right knee shows no acute abnormality. No significant signs of arthritis and no bony abnormalities. Emergency Department Course and Treatment: Discussed with patient treatment options. She was given a joint injection of of Kenalog and lidocaine in the right knee. Area was cleaned with alcohol. I used a infra patella medial approach without any difficulty. Patient tolerated procedure well. Treatment Plan: Call and follow-up with her orthopedic physician Dr. Alex Zendejas as needed. Disposition: Discharge Impression: Atraumatic right knee pain secondary to arthritis Right knee joint injection by ER This note was generated with Clipboard dictation software. It may contain incorrect words, spelling, and punctuation that were not noted in review of the chart prior to signing ED Disposition - Plan for ED Patient: Chief Complaint: Lower Extremity Injury Referrals: [facility] Kasi Ornelas [Primary Care Provider] - What to do if you have Problems For any increased pain, shortness of breath, bleeding, nausea or vomiting, chest pain, or any unexpected problems, contact your Primary Care Provider. Call [facility] ([phone]) or report to the closest Emergency Room. Call 911 if necessary. 04/02/17 3005 <Electronically signed by Janak Metcalf MD> Date Janak Metcalf MD Cosigner Signature (If Indicated): Date CC: KASI [facility] DISCHARGE INSTRUCTION Observed: 04/02/2017 Status: F Source: [place] 4:22 PM [facility] REPOSITORY [facility] Medical Records Department [address] [place] [address] Discharge Instruction 04/02/17 1528 MR#: [id number] Acct: [id number] Name: LESLIE DAVIS Rep #: [id number] : 1955 61 From: Janak Metcalf MD PCP: KASI ORNELAS Status: DEP ER ED Disposition - Plan for ED Patient: Disposition: Home or Assisted Living Chief Complaint: Lower Extremity Injury Prescriptions: Hydrocodone/Acetaminophen [Ellijay 5-325 Tablet] 1 ea PO Q4H PRN PRN #14 tab PRN Reason: Pain Referrals: Kasi Washburn [Primary Care Provider] - As Needed Alex Zendejas MD [STAFF PHYSICIAN] - As Needed Additional Instructions: Patient elevate right knee. Motrin for pain and inflammation. Ellijay for more severe pain. Follow-up with your orthopedic physician Dr. Alex Zendejas if not clearing. Return to ER immediately if the right knee becomes significantly red, severely swollen or fever. Currently however there are no signs of infection. What to do if you have Problems For any increased pain, shortness of breath, bleeding, nausea or vomiting, chest pain, or any unexpected problems, contact your Primary Care Provider. Call [facility] ([phone]) or report to the closest Emergency Room. Call 911 if necessary. 04/02/17 0282 <Electronically signed by Janak Metcalf MD> Date Janak Metcalf MD Cosigner Signature (If Indicated): Date CC: KASI [facility] KNEE 4 OR MORE Observed: 04/02/2017 Status: F Source: [place] VIEWS 1:03 PM [facility] REPOSITORY [facility] Imaging Services [address] [place] [address] Knee 4 or More Views MR#: [id number] Acct: [id number] Name: LESLIE DAVIS Rep #: [id number] : 1955 F 61 From: Arturo Lomeli MD PCP: KASI [facility] Status: REG ER Study: Knee 4 or More Views Date of Exam: 04/02/17 Exam# [id number] Ordering Dr: Janak Metcalf MD STUDY: X-RAY - RIGHT KNEE REASON FOR EXAM: Female, 61 years old. Pain. TECHNIQUE: 4 view(s) of the knee. COMPARISON: None. FINDINGS: Normal visualized distal femur. Normal visualized proximal tibia and fibula. Normal proximal tibiofibular articulation. Normal medial femorotibial compartment. Normal lateral femorotibial compartment. Normal patellofemoral articulation. The soft tissue structures are unremarkable. RAD/Knee 4 or More Views IMPRESSION: Normal x-ray examination of the knee. Electronically Signed: Arturo Lomeli MD at 14:01 EST Tel [phone], Service support , CC: Janak Metcalf MD; [facility] Armament Mechanic: Signed HIP 2-3 VIEWS WITH Observed: 03/25/2017 Status: F Source: [place] PELVIS 3:32 PM [facility] REPOSITORY [facility] Imaging Services [address] [place] [address] Hip 2-3 Views with Pelvis MR#: [id number] Acct: [id number] Name: LESLIE DAVIS Rep #: [id number] : 1955 F 61 From: Maikel Munson MD PCP: Jefry Childs MD Status: REG CLI Study: Hip 2-3 Views with Pelvis Date of Exam: 03/25/17 Exam# [id number] Ordering Dr: Natalie Horner [facility]-C STUDY: X-RAY - PELVIS AND RIGHT HIP REASON FOR EXAM: Female, 61 years old. Chronic pain. No known injury TECHNIQUE: Radiological exam, hip, unilateral, with pelvis when performed; 2 or 3 views. COMPARISON: None. FINDINGS: There is a non-specific bowel gas pattern. Normal visualized soft tissue structures. Normal bilateral iliac wings, sacroiliac joints and visualized sacrum. Normal bilateral superior and inferior pubic rami. Normal pubic symphysis. Normal bilateral ischial tuberosities. There are advanced degenerative changes of bilateral hip joints, more prominent on the right, with superior joint space narrowing and marginal osteophytes in the acetabulum. There is subchondral sclerosis and cyst formation in the right femoral head suggesting underlying avascular necrosis. There is soft tissue calcific deposits adjacent to the right acetabulum. 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 Electronically Signed: Maikel Munson MD, FACR at 9:28 EST , Service support , CC: Jefry Childs MD; Natalie TINOCO Armament Mechanic: Signed L/S SPINE MIN 4 Observed: 03/25/2017 Status: F Source: [place] VIEWS 3:16 PM [facility] REPOSITORY [facility] Imaging Services [address] [place] [address] L/S Spine Min 4 Views MR#: [id number] Acct: [id number] Name: LESLIE DAVIS Rep #: [id number] : 1955 F 61 From: Maikel Munson MD PCP: Jefry Childs MD Status: REG CLI Study: L/S Spine Min 4 Views Date of Exam: 03/25/17 Exam# [id number] Ordering Dr: Natalie Horner [facility]-C STUDY: X-RAY - LUMBAR SPINE REASON FOR EXAM: Female, 61 years old. Chronic pain. No known injury TECHNIQUE: 5 view(s) of the lumbar spine were obtained. COMPARISON: None FINDINGS: Normal lumbar lordosis. There is no substantial scoliosis. There is a normal alignment of the vertebrae. Normal vertebral bodies and endplates except for small anterior osteophytes. There is disc space narrowing at L5-S1 The soft tissue structures are unremarkable. RAD/L/S Spine Min 4 Views IMPRESSION: Minor degenerative changes. No acute lesions noted Electronically Signed: Maikel Munson MD, FACR at 9:20 EST , Service support , CC: Jefry Childs MD; Natalie TINOCO Armament Mechanic: Signed ALLERGIES ALLERGIES DATE TYPE / CODE NAME / CODE REACTION SEVERITY SOURCE 02/11/2018 Drug Rgckkzm-Crs-Rgk Anaphylaxis [facility] [place] Allergy/416 [facility] 465833(SNOM Inhibitor/P36963 [facility] ED CT) 0095(RXNORM) Repository 02/11/2018 Drug atorvastatin/F00 Anaphylaxis Unknown [place] Allergy/979 6143425(RXNORM) [facility] 890191([facility] ED CT) Repository 11/29/2017 Drug No Known Unknown [place] Allergy/416 Allergies/M60356 Community 235353(SNOM 0388(RXNORM) [facility] ED CT) Repository Drug NO KNOWN [facility] Class/01315 ALLERGIES [facility] 1003(SNOMED Repository CT) ENCOUNTERS ENCOUNTERS ADMIT/DISCHARGE ACCOUNT ADMITTING ENCOUNTER LOCATION SOURCE NUMBER CLASS 03/04/2018 [id number] Ambulatory [facility] ing:PSN Repository 02/24/2018 [id number] [facility] Repository 02/23/2018 [id number] Ambulatory [facility] ing:PSN Repository 02/11/2018/02/12/20 [id number] Ambulatory [facility] Repository 01/26/2018/01/30/20 [id number] [place], Inpatient [facility] ing:PCURoom: Repository [id number]: 1 01/26/2018 [id number] [place], Ambulatory BMSBuilding:Kristie Mckinnon MS.[facility] Repository 01/26/2018 [id number] [place], Ambulatory [facility]MSBuilding:[facility]innon [facility] Repository 01/26/2018 [id number] [place], Ambulatory BMSBuilding:Kristie Mckinnon [facility] Repository 01/26/2018 [id number] [place], Ambulatory BMSBuilding:[facility]ie M[facility]innon [facility] Repository 01/26/2018 [id number] [place], Ambulatory BMSBuilding:[facility] M[facility]innon [facility] Repository 01/26/2018 [id number] [place], Ambulatory BMSBuilding:Kristie Mckinnon [facility] Repository 01/26/2018/01/30/20 [id number] Ambulatory BMSBuilding:[address] Repository 01/26/2018 [id number] Agyepong, Ambulatory BMSBuilding:Kristie Mckinnon MS.Formerly [facility], [facility] Repository 01/05/2018/01/06/20 [id number] Ambulatory [address] Repository 01/05/2018/01/06/20 [id number] Ambulatory [address] Repository 12/22/2017/01/07/20 [id number] Ambulatory [place] [address] [place] [address] [place] Repository 12/03/2017 [id number] Ambulatory [facility] ing:OPBI Repository 11/29/2017/11/30/19 [id number] Emergency [address] ing:ED Repository 06/02/2017/06/04/19 [id number] [place]jas[place] [address] Alex [facility] ing:KL7Whsx: Repository [id number]: 1 05/14/2017 [id number] Ambulatory [facility] Repository 05/01/2017 [id number] Ambulatory [facility] ing:LAB Repository 04/03/2017 [id number] Ambulatory [facility] ing:LAB Repository 04/02/2017/04/02/19 [id number] Emergency [address] ing:ED Repository 03/25/2017 [id number] Ambulatory [facility] ing:RAD Repository PAYERS PAYERS ENCOUNTER GUARANTOR PAYER SUBSCRIBER SOURCE 03/04/2018 LESLIE S Primary LESLIE S Yandy [id number] Insurance:CARESOURCE OSMANIOB[facility] [id number] [place] Number: Repository [id number]: [phone] [id number] [phone] () Date:5640-13-19WL [address] [address]IO: 03/04/2018 Secondary LESLIE S Yandy Insurance:[facility] BURGESSDOB: [facility] [id number] Hospital Number: Repository [id number] Date:6869-74-12EZ [address] [address]EK: 03/04/2018 Tertiary NOT GIVENUNK [place] Insurance:SELF PAY [facility] Number: Effective Repository Date:2018-02-11 02/24/2018 LESLIE S Primary LESLIE S Yandy [id number] Insurance:CARESOURCE BURGESSDOB: Community [address] JUST FOR [facility] [id number] [place] Number: Repository [id number]: [phone] [id number] (HP) Date:1555-83-02BW [address] [address]FH: 02/24/2018 Secondary LESLIE S [place] Insurance:[facility] BURGESSDOB: Community [facility] [id number] Hospital Number: Repository [id number] Date:6436-34-41LO [address] [address]JE: 02/24/2018 Tertiary NOT GIVENUNK [place] Insurance:SELF PAY [facility] Number: Effective Repository Date:2018-02-24 02/23/2018 LESLIE S Primary LESLIE S Yandy [id number] Insurance:CARESOURCE BURGESSDOB: Community [address] JUST FOR [facility] [id number] Number: Repository [id number]: [phone] [id number] () Date:3232-27-07VB[address] [address]TZ: 02/23/2018 Secondary LESLIE S [place] Insurance:[facility] BURGESSDOB: [facility] [id number] Hospital Number: Repository [id number] Date:6239-07-55DG [address] [address]SY: 02/23/2018 Tertiary NOT GIVENUNK [place] Insurance:SELF PAY [facility] Number: Effective Repository Date:2018-02-11 02/11/2018 LESLIE S Primary LESLIE S Yandy [id number] Insurance:CARESOURCE BURGESSDOB: Community [place] JUST FOR [facility] [id number], Number: Repository [place] [address]Sak: [id number] Date:3245-37-86UH [address] () [address] [address]QD: 02/11/2018 Secondary LESLIE S [place]andy Insurance:C BURGESSDOB: [facility] [id number] Hospital Number: Repository [id number] Date:9175-24-27NU [address] [address]CZ: 02/11/2018 Tertiary NOT GIVENUNK [place] Insurance:SELF PAY [facility] Number: Effective Repository Date:2018-02-11 01/26/2018 LESLIE S Primary LESLIE S [place] [id number] Insurance:CARESOURCE BURGESSDOB: Community [place] JUST FOR [facility] [id number], Number: Repository [place] [address]Cfy: [id number] Date:7581-94-85RN [address] () [address] [place] [address]HA: 01/26/2018 Secondary LESLIE S [place] Insurance:[facility] BURGESSDOB: [facility] [id number] Hospital Number: Repository [id number] Date:1967-03-44WZ [address] [address]EA: 01/26/2018 Tertiary NOT GIVENUNK [place] Insurance:SELF PAY [facility] Number: Effective Repository Date:2018-01-26 01/26/2018 ELSLIE S Primary LESLIE S Yandy [id number] Insurance:CARESOURCE BURGESSDOB: Community [place] JUST FOR [facility] [id number] Hospital at [facility], Number: Repository [place] [id number]: [id number] Date:3877-36-62HV [address] () [address] [address]HE: 01/26/2018 Secondary LESLIE S [place] Insurance:[facility] BURGESSDOB: [facility] [id number] Hospital Number: Repository [id number] Date:7136-54-92AC [address] [place] [address]GL: 01/26/2018 Tertiary NOT GIVENUNK [place] Insurance:SELF PAY [facility] Number: Effective Repository Date:2018-01-26 01/26/2018 LESLIE S Primary LESLIE S [place] [id number] Insurance:CARESOURCE BURGESSDOB: Community [place] FOR [place] [id number] Hospital at [facility], Number: Repository [place] [id number]: [id number] Date:1419-18-10ZM [address] () [address], [place] [address]MC: 01/26/2018 Secondary LESLIE S [place] Insurance:[facility] BURGESSDOB: [facility] [id number] Hospital Number: Repository [id number] Date:2961-39-62EX [address] [place] [address]YJ: 01/26/2018 Tertiary NOT GIVENUNK [place] Insurance:SELF PAY [facility] Number: Effective Repository Date:2018-01-26 01/26/2018 LESLIE S Primary LESLIE S Yandy [id number] Insurance:CARESOURCE BURGESSDOB: Community [place] JUST FOR [place] [id number] Hospital at Wayne, Number: Repository [place] [id number]: [id number] Date:1084-12-72DX [address] () [address], [place] [address]UF: 01/26/2018 Secondary LESLIE S [place] Insurance:[facility] BURGESSDOB: [facility] [id number] Hospital Number: Repository [id number] Date:8169-39-36PQ [address] [address]SC: 01/26/2018 Tertiary NOT GIVENUNK [place] Insurance:SELF PAY [facility] Number: Effective Repository Date:2018-01-26 01/26/2018 LESLIE S Primary LESLIE S Yandy [id number] Insurance:CARESOURCE BURGESSDOB: Community [place] JUST FOR [place] [id number], Number: Repository [place] [address]Zan: [id number] Date:1960-75-63VW [address] () [place] [address]AB: 01/26/2018 Secondary LESLIE S [place] Insurance:[facility] BURGESSDOB: Community [facility] [id number] Number: Repository [id number] Date:9518-87-29WO [address] [place] [address]YU: 01/26/2018 Tertiary NOT GIVENUNK [place] Insurance:SELF PAY [facility] Number: Effective Repository Date:2018-01-26 01/26/2018 LESLIE S Primary LESLIE S [place] [id number] Insurance:CARESOURCE BURGESSDOB: Community [place] JUST FOR [place] [id number] Hospital at [facility], Number: Repository [place] [address]Vwo: [id number] Date:2394-97-46KX [address] () [address], [place] [address]QP: 01/26/2018 Secondary LESLIE S [place] Insurance:[facility] BURGESSDOB: [facility] [id number] Number: Repository [id number] Date:3745-49-31AD [address] [place] [address]YH: 01/26/2018 Tertiary NOT GIVENUNK [place] Insurance:SELF PAY [facility] Number: Effective Repository Date:2018-01-26 01/26/2018 LESLIE S Primary LESLIE S [place] [id number] Insurance:CARESOURCE BURGESSDOB: Community [place] JUST FOR [address], Number: Repository [place] [address]Nxq: [id number] Date:1893-14-29HJ [address] () [address], [place] [address]II: 01/26/2018 Secondary LESLIE S [place] Insurance:[facility] BURGESSDOB: [facility] [id number] Hospital Number: Repository [id number] Date:1303-50-62DN [address] [address]TY: 01/26/2018 Tertiary NOT GIVENUNK [place] Insurance:SELF PAY [facility] Number: Effective Repository Date:2018-01-26 01/26/2018 LESLIE S Primary LESLIE S [place] [id number] Insurance:CARESOURCE BURGESSDOB: Community [place] JUST FOR [facility] [id number] Hospital at Wayne, Number: Repository [place] [id number]: [id number] Date:7467-92-21LO [address] () [address], [place] [address]GW: 01/26/2018 Secondary LESLIE S [place] Insurance:[facility] BURGESSDOB: [facility] [id number] Hospital Number: Repository [id number] Date:3866-84-80NK [address] [address]NS: 01/26/2018 Tertiary NOT GIVENUNK [place] Insurance:SELF PAY [facility] Number: Effective Repository Date:2018-01-26 01/26/2018 LESLIE S Primary LESLIE S [place] [id number] Insurance:CARESOURCE BURGESSDOB: Community [place] JUST FOR [facility] [id number] Hospital at Wayne, Number: Repository [place] [id number]: [id number] Date:0388-93-88AV [address] () [place], [place] [address]AT: 01/26/2018 Secondary LESLIE S [place] Insurance:[facility] BURGESSDOB: Community [facility] [id number] Hospital Number: Repository [id number] Date:6756-30-83NW [address] [place] [address]UM: 01/26/2018 Tertiary NOT GIVENUNK [place] Insurance:SELF PAY [facility] Number: Effective Repository Date:2018-01-26 12/03/2017 LESLIE S Primary LESLIE S [place] [id number] Insurance:CARESOURCE BURGESSDOB: Community [place] JUST FOR [facility] [id number] Hospital at Wayne, Number: Repository [place] [address]Els: [id number] Date:2964-81-90TC [address] () [place] [address]QE: 12/03/2017 Secondary NOT GIVENUNK [place] Insurance:SELF PAY [facility] Number: Effective Repository Date:2017-11-12 11/29/2017 LESLIE S Primary LESLIE S [place] [id number] Insurance:CARESOURCE BURGESSDOB: Community [place] JUST FOR [facility] [id number] Hospital at [facility], Number: Repository [place] [address]Mvp: [id number] Date:5400-61-27IZ [address] () [place] [address]ZA: 11/29/2017 Secondary NOT GIVENUNK [place] Insurance:SELF PAY [facility] Number: Effective Repository Date:2017-11-29 06/02/2017 LESLIE S Primary LESLIE S [place] [id number] Insurance:CARESOURCE BURGESSDOB: Community [place] JUST FOR [facility] [id number] Hospital at Wayne, Number: Repository [place] [address]Uff: [id number] Date:3640-18-00ME [address] () [place] [address]YR: 06/02/2017 Secondary NOT GIVENUNK [place] Insurance:SELF PAY [facility] Number: Effective Repository Date:2017-04-01 05/14/2017 LESLIE S Primary LESLIE S [place] [id number] Insurance:CARESOURCEP BURGESSDOB: Community [place] [facility] Number: [id number] Hospital at Wayne, [id number] Repository [place] [address]Sbo: Date:2017-05-14[address]ATTN: CLAIMS () [place] [address]CW: 05/14/2017 Secondary NOT GIVENUNK [place] Insurance:SELF PAY [facility] Number: Effective Repository Date:2017-05-14 05/01/2017 LESLIE S Primary LESLIE S Yandy [id number] Insurance:CARESOURCE BURGESSDOB: Community [place] JUST FOR [facility] [id number] Hospital at Wayne, Number: Repository [place] [address]Emn: [id number] Date:6049-88-95SX [address] () [address], [place] [address]HF: 05/01/2017 Secondary LESLIE S [place] Insurance:MEDICAIDPol BURGESSDOB: Community y Number: [id number] [id number] Repository Date:2017-05-01 05/01/2017 Tertiary NOT GIVENUNK [place] Insurance:SELF PAY [facility] Number: Effective Repository Date:2017-05-01 04/03/2017 LESLIE S Primary LESLIE S [place] [id number] Insurance:CARESOURCE BURGESSDOB: Community [place] JUST FOR [facility] [id number] Hospital at Wayne, Number: Repository [place] [address]Zfv: [id number] Date:8089-71-82IN [address] () [place] [address]LI: 04/03/2017 Secondary NOT GIVENUNK [place] Insurance:SELF PAY [facility] Number: Effective Repository Date:2017-04-03 04/02/2017 LESLIE S Primary LESLIE S [place] [id number] Insurance:CARESOURCE BURLISSETSDOB: Community [place] [facility] [id number] Hospital at Wayne, Number: Repository [place] [address]Nsd: [id number] Date:8749-45-47QO [address] () [address] [place] [address]WX: 04/02/2017 Secondary NOT GIVENUNK [place] Insurance:SELF PAY [facility] Number: Effective Repository Date:2017-04-02 03/25/2017 LESLIE S Primary LESLIE S [place] [id number] Insurance:CARESOURCTAWANNA KEENOB: Community [place] [facility] Number: [id number] Hospital at [facility], [id number] Repository [place] [address]Zsx: Date:2017-03-25[address]ATTN: CLAIMS () [place] [address]VW: 03/25/2017 Secondary NOT GIVENUNK [place] Insurance:SELF PAY [facility] Number: Effective Repository Date:2017-03-25
== END ==
PROVIDERS: Referring Provider Nurse Practitioner Acute Care; Visit Provider Nurse Practitioner Acute Care
DX: R05 Cough (principal)
CPT/HCPCS: 94618

== ENCOUNTER → 2018-03-04 12:48 | Outpatient (CLI) | payer OTHER, MEDICAID, SELFPAY ==
[2018-02-11 10:57] VITALS: BMI 36.6
--- NOTE | 2018-03-05 09:45 | PFTCOMP_ITS ---
COMPLETE PULMONARY FUNCTION TEST INTERPRETATION Brief HPI: Patient is a 62 year old female, currently under the care of Dr. Ochoa, who presents to [facility] for complete pulmonary function tests secondary to diagnosis of cough. Respiratory therapist reports good effort and reproducible results. Interpretation: Forced expiration spirometry shows no large airways obstructive ventilatory defect with an FEV1 of 101% predicted. There is no significant bronchodilator response by strict ATS criteria. Spirograms are of good quality and plateau normally. The respiratory flow volume loop shows a normal pattern. Lung volumes by body plethysmography show a normal total lung capacity at 4.58 L, 103% predicted. All other lung volumes are within normal limits. Diffusion capacity by carbon monoxide is decreased at 63% predicted. The airway resistance is normal. No previous pulmonary function tests were available for review. Impression: Isolated reduction diffusion capacity consistent with a possible pulmonary vascular disorder.
--- OUTSIDE RECORDS SUMMARY | 2018-04-20 16:20 | XMS RPT_ITS ---
:1955 Author Organization OHIP Support Name Relationship Address Phone MIREYA STAT Unavailable [address] + [place] [address] HOLDREN, MATEO Unavailable [address] [place] [address] MIREYA STAT Unavailable [address] + [place] [address] HOLDREN, MATEO Unavailable [address] + [address] [place] [address] MIREYA STAT Unavailable [address] + [place] [address] HOLDREN, MATEO Unavailable [address] + [address] [place] [address] MIREYA STAT Unavailable [address] + [place] [address] HOLDREN, MATEO Unavailable [address] + [address] [place] [address] MIREYA STAT Unavailable [address] + [place] [address] HOLDREN, MATEO Unavailable [address] + [address] [place] [address] MIREYA STAT Unavailable [address] + [place] [address] HOLDREN, MATEO Unavailable [address] + [address] [place] [address] MIREYA STAT Unavailable [address] + [place] [address] HOLDREN, MATEO Unavailable [address] + [address] [place] [address] MIREYA STAT Unavailable [address] + [place] [address] HOLDREN, MATEO Unavailable [address] + [address] [place] [address] MIREYA STAT Unavailable [address] + [place] [address] HOLDREN, MATEO Unavailable [address] + [address] [place] [address] MIREYA STAT Unavailable [address] + [place] [address] HOLDREN, MATEO Unavailable [address] + [address] [place] [address] MIREYA STAT Unavailable [address] + [place] [address] HOLDREN, MATEO Unavailable [address] + [address] [place] [address] MIREYA STAT Unavailable [address] + [place] [address] HOLDREN, MATEO Unavailable [address] + [address] [place] [address] MIREYA STAT Unavailable [address] + [place] [address] HOLDREN, MATEO Unavailable [address] + [address] [place] [address] MIREYA STAT Unavailable [address] + [place] [address] HOLDREN, MATEO Unavailable [address] + [address] [place] [address] MIREYA STAT Unavailable [address] + [place] [address] HOLDREN, MATEO Unavailable [address] + [address] [place] [address] MIREYA STAT Unavailable [address] + [place] [address] HOLDREN, MATEO Unavailable [address] + [address] [place] [address] MIREYA STAT Unavailable [address] + [place] [address] HOLDREN, MATEO Unavailable [address] + [address] [place] [address] MIREYA STAT Unavailable [address] + [place] [address] HOLDREN, MATEO Unavailable [address] + [address] [place] [address] HOLDREN, MATEO Unavailable [address] + [address] [place] [address] KIDTO Unavailable [address] + [place] [address] HOLDREN, MATEO Unavailable [address] + [address] [place] [address] K[facility] Unavailable [address] + [place] [address] Care Team Providers Name Role Phone ISHAAN GREGORIO Attending Unavailable ISHAAN GREGORIO Referring Unavailable GRACIE CRUZ (DIANA) Referring Unavailable Aaron Ochoa D.O. Attending Unavailable Jinny Rodrigez Referring Unavailable Jaime Cortes Attending Unavailable Jinny Rodrigez Referring Unavailable Alex Zendejas Attending Unavailable Alex Zendejas Referring Unavailable [facility] Primary [facility] Unavailable Alex Zendejas Admitting Unavailable Alex Zendejas Attending Unavailable Alex Zendejas Referring Unavailable [facility] Primary Care Unavailable Perry Márquez Attending Unavailable Alex Zendejas Referring Unavailable Aaron Ochoa D.O. Attending Unavailable [facility], [facility] Referring Unavailable [facility], [facility] Attending Unavailable [facility] Primary [...] Primary Care Unavailable Ino Null Consulting Unavailable Ino Null Admitting Unavailable Bird Brizuela Attending Unavailable Natalie Greene Referring Unavailable [facility] Primary Care Unavailable Aaron Ochoa D.O. Consulting Unavailable Bird Brizuela Consulting Unavailable Ino Null Admitting Unavailable Aaron Ochoa D.O. Attending Unavailable Natalie Greene Referring Unavailable [facility] Primary Care Unavailable Aaron Ochoa D.O. Consulting Unavailable Bird Brizuela Consulting Unavailable Chaka, Ino Admitting Unavailable Bird Brizuela Attending Unavailable Evens TINOCO, Natalie Referring Unavailable [facility] Primary Care Unavailable Aaron Ochoa D.O. Consulting Unavailable Bird Brizuela Consulting Unavailable Agyerola, Ino Admitting Unavailable Aaron Ochoa D.O. Attending Unavailable Natalie Greene Referring Unavailable [facility] Primary Care Unavailable Aaron Ochoa D.O. Consulting Unavailable Bird Brizuela Consulting Unavailable Agyeponkathryn, Ino Admitting Unavailable Aaron Ochoa D.O. Attending Unavailable Evens TINOCO, Natalie Referring Unavailable [facility] Primary Care Unavailable Aaron Ochoa D.O. Consulting Unavailable Bird Brizuela Consulting Unavailable Agjose, Ino Admitting Unavailable Bird Brizuela Attending Unavailable Natalie Greene Referring Unavailable [facility] Primary Care Unavailable Aaron Ochoa D.O. Consulting Unavailable Bird Brizuela Consulting Unavailable Rodrigez, Jinny Attending Unavailable [facility] Referring Unavailable Josias, [place] Attending Unavailable Bird Brizuela Referring Unavailable Rodrigez, Jinny Attending Unavailable Rodrigez, Jinny Referring Unavailable [facility] Primary Care Unavailable Natalie Greene Consulting Unavailable Rodrigez, Jinny Attending Unavailable Rodrigez, Jinny Referring Unavailable [facility] Primary Care Unavailable Natalie Greene Consulting Unavailable PROBLEMS PROBLEMS DATE TYPE CONDITION / CODE ATTENDING STATUS SOURCE 03/13/2018 Unknown R05 - Cough / Sebastian, Jaime Active [facility] 02/11/2018 Unknown Z23 - Encounter for Rodrigez, Active [place] immunization / [facility] Z23(ICD-10) Hospital Repository 02/16/2018 Unknown R07.9 - Chest pain, Josias, Chino Active [place] unspecified / Community R07.9(ICD-10) Hospital Repository 01/05/2018 Active Encounter for other NA Active [facility] preprocedural [facility] [place] examination / Repository Z01.818(ICD-10) 12/03/2017 Unknown Z12.31 - Encounter CLINIC, ISIDRORyder Active [facility] for screening [facility] mammogram for Hospital malignant neoplasm Repository of breast / Z12.31(ICD-10) 11/29/2017 Unknown M70.62 - Jake Calabrese Active [facility] bursitis, left hip Hospital / M70.62(ICD-10) Repository 12/19/2017 Unknown M16.11 - Unilateral Alex Zendejas Active [facility] primary [facility] osteoarthritis, Hospital right hip / Repository M16.11(ICD-10) PROCEDURES PROCEDURES No Procedure Records FoundRESULTS RESULTS PULMONARY VISIT REPORT Observed: 04/02/2018 Status: F Source: [place] 1:11 PM [facility] REPOSITORY [facility] Pulmonary Medicine of [address] [place] [address] OFFICE VISIT Date of Service: 04/02/18 MR#: [id number] Acct: [id number] Name: LESLIE DAVIS Rep #: [id number] : 1955 Provider: Aaron Ochoa D.O. Age/Sex: 62/F [facility] Status: Signed Assessment AND Plan Problems 1. Cough R05 Plan The patient's cough is now completely resolved following the initiation of Prilosec, suggesting underlying reflux as the etiology for her previously noted cough complaints. She does have a history of respiratory failure, which did develop as the consequence of an anaphylactic reaction to Lipitor. Pulmonary function studies were largely unremarkable. A 6-minute walk test revealed no need for supplemental oxygen. The patient has no significant pulmonary limitations that would preclude her from proceeding with orthopedic surgical intervention. She is clear from a pulmonary perspective to proceed with hip surgery. Medications New: Plan Detail Follow Up PRN HPI HPI Comments Details: The patient is a 62-year-old female who presents to the clinic today for a routine scheduled follow-up office visit. If you recall, I initially saw the patient when she was admitted to the hospital in January 2018 with acute respiratory failure after she developed an anaphylactic reaction to Lipitor. The patient did require transient invasive mechanical ventilation. However, following resolution of her anaphylactic reaction, she was able to be weaned from mechanical ventilation without issue. The patient is a lifelong non-smoker. Pulmonary function studies completed in mid February 2018 revealed only a mild reduction in diffusing capacity, likely secondary to her body habitus. A 6-minute walk test also completed at that time revealed a christy oxygen saturation of 92% with ambulation. Today, the patient reports that her residual cough complaints have resolved since she was started on Prilosec. She only reports a mild degree of shortness of breath with strenuous physical exertion. She does not utilize any inhalers at her baseline, nor is she oxygen dependent. She denies the presence of chest tightness and wheezing. She has gained some weight recently. She states that she is awaiting a hip replacement surgery but is in need of clearance from a respiratory perspective to proceed. Intake Vital Signs04/02/18 Height 5 ft 2 in 04/02/18 Weight: 211 lb Intake Visit Reasons: 6 wk FU Accompanied by: Self Allergies Cxdkuqj-Bit-Kyh Reductase Inhibitor Allergy (Severe, Verified 04/02/18 12:38) Anaphylaxis atorvastatin [From Lipitor] Allergy (Verified 04/02/18 12:38) Anaphylaxis Medications Loratadine 10 mg PO DAILY PRN 05/14/17 [History Confirmed 04/02/18] cholecalciferol (vitamin D3) 1,000 unit capsule 1,000 unit PO DAILY 02/10/18 [History Confirmed 04/02/18] fluticasone 50 mcg/actuation nasal spray,suspension 2 spray INTRANASAL DAILY 02/10/18 [History Confirmed 04/02/18] meloxicam 15 mg tablet 7.5 mg PO BID tab 02/10/18 [History Confirmed 04/02/18] multivitamin tablet 1 tab PO DAILY 02/10/18 [History Confirmed 04/02/18] duloxetine 30 mg capsule,delayed release 30 mg PO DAILY 02/11/18 [History Confirmed 04/02/18] omeprazole magnesium 20 mg tablet,delayed release 20 mg PO DAILY 04/02/18 [History Confirmed 04/02/18] [facility] Medical History Left shoulder pain (Acute) ? [...] or other Resp Respiratory: Positive as per HPI and shortness of breath shortness of breath: Positive with activity (stairs ); negative pain with cough, wheezing, chest congestion, cough, chest tightness, pain on inspiration, inhalers, increase use of [...] conversant, cooperative, in no acute respiratory distress, well developed, well nourished, good hygiene and obese Head Head: Positive normocephalic and atraumatic; negative cyanosis of lips/distal nose Eyes Eye: Positive clear conjunctiva; negative nystagmus or scleral abnormality Ears Ear: Positive hearing normal and external ears normal; negative hard of hearing Nose Nose: Positive external nose normal; negative epistaxis Mouth Mouth: Positive oral mucosae normal and posterior oropharynx is adequate; negative no lesions or post nasal drip Mallampati Score: II: Mallampati Score Neck Neck: Positive normal visual inspection and trachea midline; negative lymphadenopathy Chest Wall Chest: Positive symmetric chest movement Normal AP diameter. Resp lung sounds: Positive clear to auscultation and good air exchange; negative wheezes, rhonchi or rales Cardio Cardiac: Positive regular rate, regular rhythm, S1 normal and S2 normal; negative rub, gallop or murmur GI GI: Positive normal bowel sounds and obese Soft without distention Genitourinary: Positive deferred Musc Musculoskeletal: Positive steady gait and using an assistive device for ambulation Skin Pulmonary Skin Exam: Positive intact; negative lesion, ulcers, dermal atrophy or rash Pulses Pulse: Yes Pedal pulses present: Extremities Extremities: No clubbing, No cyanosis, No edema Neuro Neurologic: Yes conversant, Yes no focal neuro deficits, Yes cooperative Lymph Lymphatic: No lymphadenopathy Psych Appearance: Positive grossly normal Mental Status: Positive mental status grossly normal Mood: Positive congruent mood Affect: Positive normal affect Coding Level of Care Code Off vis,est,level 3 Diagnoses Cough R05 04/02/18 1311 <Electronically signed by Aaron Ochoa DO> Date Aaron Ochoa DO Cosigner Signature: Date (if applicable) CC: KASI RAMOS [facility] PULMONARY FUNCTION Observed: 03/06/2018 Status: F Source: [place] REPORT COMP 6:02 AM [facility] REPOSITORY [facility] Pulmonary Services/Neurology [address] [place] [address] MR#: [id number] Acct: [id number] Name: LESLIE DAVIS Rep #: [id number] : 1955 62 From: Jaime Cortes MD Referring Dr: Jinny Rodrigez NP Status: REG CLI Ordering Dr: Date: Location: N Sex: F C COMPLETE PULMONARY FUNCTION TEST INTERPRETATION Brief HPI: Patient is a 62 year old female, currently under the care of Dr. Ochoa, who presents to [facility] for complete pulmonary function tests secondary to [...] Cortes MD CC: Jaime Cortes MD; Jinny RAMOS [facility] Date Dictated: 03/05/18942 Date Transcribed: 03/05/18942 Hand Candle Molder: ELIO Signed 6 MINUTE WALK TEST Observed: 02/24/2018 Status: F Source: [place] 8:24 AM [facility] REPOSITORY [facility] Pulmonary Services/Neurology [address] [place] [address] MR#: [id number] Acct: [id number] Name: LESLIE DAVIS Rep #: [id number] : 1955 62 From: Aaron Ochoa DO Referring Dr: Jinny Rodrigez NP Date: Ordering Dr: Sex: F C Location: PSN PSN 6 Minute Walk Test - 6 Minute Walk Test 6 Minute Walk Test: 6 Minute Walk Test PSN:6-Minute Walk Test Start: 02/23/18 13:29 Freq: Status: Active Protocol: RESP.6MINW Document 02/23/18 12:30 [facility] (Rec: 02/23/18 13:52 [facility] [id number]) 6 Minute Walk Test Date Performed 02/23/18 [...] CC: Date Dictated: 02/24/18821 Date Transcribed: 02/24/18821 Hand Candle Molder: Aaron Ochoa DO Signed PULMONARY VISIT REPORT Observed: 02/11/2018 Status: F Source: [place] 4:25 PM [facility] REPOSITORY [facility] [address] [place] [address] [place] [address] OFFICE VISIT Date of Service: 02/11/18 MR#: [id number] Acct: [id number] Name: LES[place]IE DAVIS Rep #: [id number] : 1955 Provider: Jinny Rodrigez Age/Sex: 62/F Location: [facility] Status: Signed Assessment AND Plan 1. Cough [...] plan. Orders Orders: Medications Discontinued: Flucelvax Quad 2943-2963 (PF) (flu vac qs 2018(4 yr up60 [...] Orders: Other Medications New: Discontinued: Flucelvax Quad 8411-2601 (PF) (flu vac qs 2018(4 yr60 mcg (0.5 mL) IM ONCE 1 mL 0RF NS Z23 up)CD(PF)) Discontinued Reason: Office Medicat ion has been Documented as given Follow Up 6 Weeks (DMB) HPI Hospital FU: Chief Complaint: Shortness of breath on exertion [facility] Comments Details: This is a 62 year old very pleasant F, currently under the care of Pita Fontanez, here to follow up after a recent hospitalization at [facility], from January 26 - January 29 for [...] 200 lb Intake Visit Reasons: Hospital FU Chemistry Associate Required: No Accompanied by: Self Is patient in pain?: No Allergies [place]-Ckg-Tlr Reductase Inhibitor Allergy (Severe, Verified 02/11/18 10:59) [...] mg PO DAILY 02/11/18 [History Confirmed 02/11/18] PFS Medical History Left shoulder pain (Acute) ? [...] and obese; negative distended Genitourinary: Positive deferred [facility] Musculoskeletal: Positive steady gait, ROM normal and [...] Result NIOX: 13 Office Meds Flucelvax Quad 7505-4466 (PF) Performing Provider: LEONEL Beltran Administered by: Tabby Avina on 02/11/18 11:47 Dose Route Admin Location Lot Number Expiration Date NDC Finishing Room Operator 60 mcg IM Left deltoid [id number] 08/22/18 24897-647-62 SEQIRUS Coding Level of Care Code Off vis,est,level 4 Diagnoses Cough R05 Anaphylaxis, subsequent encounter T78.2XXD Encounter type: subsequent encounter 02/11/18 1625 <Electronically signed by Jinny CASTANEDA> Date Jinny CASTANEDA Cosigner Signature: Date (if applicable) CC: KASI RAMOS [facility] 12 LEAD ELECTROCARDIOGRAM Observed: 01/29/2018 Status: F Source: [place] 4:02 PM [facility] REPOSITORY [facility] Cardiovascular Services [address] [place] [address] 12 Lead EKG 01/26/18 0804 MR#: [id number] Acct: [id number] Name: LESLIE DAVIS Rep #: [id number] : 1955 62 From: Chino Ferrara MD Attending Dr: Bird Brizuela MD Status: DIS IN Ordering Dr: Ino Null MD Date: 01/26/18 Location: [facility] Sex: F C Admitted: 01/26/18 Test Reason [...] COMPARISON REQUIRED, DATA IS UNCONFIRMED Confirmed by CHINO FERRARA MD ([id number]), science editor EMELYN ZENDEJAS ([id number]) on 01/29/2018 4:02:17 PM Referred By: Natalie Horner Confirmed By:CHINO FERRARA MD 01/29/18 1602 Date Chino Ferrara MD CC: Bird Brizuela MD; Natalie TINOCO; Ino Null MD; [facility] Signed DISCHARGE SUMMARY Observed: 01/29/2018 Status: F Source: [place] 10:41 AM [facility] REPOSITORY [facility] Medical Records Department [address] [place] [address] Discharge Summary 01/29/18 1036 MR#: [id number] Acct: [id number] Name: LESLIE DAVIS Rep #: [id number] : 1955 62 From: Bird Brizuela MD PCP: KASI RAMOS [facility] Status: ADM IN Location: [place] [address] Discharge Date and Diagnosis - Problem List [...] Arturo Lomeli MD at 15:40 EST Tel [phone], Service support , Chest X-Ray 01/26/18 16:00 [...] care unit consultation was placed to the client technical specialist. Vent management deferred to pulmonary/critical care. Patient [...] of patient ACLS protocol 4. Chest pain NC was ruled out with serial cardiac enzymes [...] applicable Code Visit Inpatient E AND M: 11204 Disch Hosp 01/29/18 1041 <Electronically signed by Bird Brizuela MD> Date Bird Brizuela MD Cosigner Signature (if applicable): Date CC: Bird Brizuela MD; KASI ORNELAS Signed DISCHARGE INSTRUCTION Observed: 01/29/2018 Status: F Source: [place] 10:35 AM [facility] REPOSITORY [facility] Medical Records Department [address] [place] [address] Instructions for Home/Discharge Instructions 01/29/18 1034 MR#: [id number] Acct: [id number] Name: LESLIE DAVIS Rep #: [id number] : 1955 62 From: Bird Brizuela MD [...] Physician: Kasi Washburn [Primary Care Provider] - Test Results: Test results from this visit will be discussed in further detail at your follow-up appointment, if applicable. Please Follow Up With: PRIMARY CARE PHYSCIAN When: IN 5-7 DAYS Proposed Discharge Date: 01/29/18 01/29/18 1035 <Electronically signed by Bird Brizuela MD> Date Bird Brizuela MD CC: Aaron Ochoa D.O.; KASI ORNELAS CBC W/DIFF, AUTOMATED Collected: 01/29/2018 Status: F Source: [place] 4:20 AM [facility] REPOSITORY TYPE CODE TESTS RESULT OUT OF [...] Lymph 0.96 Performed By: #### L100.0100 #### [facility] [address] [place], [address] BASIC METABOLIC Collected: 01/29/2018 Status: F Source: [place] PROFILE (BMP) 4:20 AM [facility] REPOSITORY TYPE CODE TESTS RESULT OUT OF [...] GAP 8 Performed By: #### L500.2500 #### [facility] [address] [place], [address] CBC W/DIFF, AUTOMATED Collected: 01/28/2018 Status: F Source: [place] 7:10 AM [facility] REPOSITORY TYPE CODE TESTS RESULT OUT OF [...] Lymph 0.77 Performed By: #### L100.0100 #### [facility] [address] [place], [place], [address] BASIC METABOLIC Collected: 01/28/2018 Status: F Source: [place] PROFILE (BMP) 7:10 AM [facility] REPOSITORY TYPE CODE TESTS RESULT OUT OF [...] GAP 10 Performed By: #### L500.2500 #### [facility] [address] [place], [address] CONSULTATION Observed: 01/28/2018 Status: F Source: [place] 6:48 AM [facility] REPOSITORY [facility] Medical Records Department [address] [facility] [place] [address] Consultation 01/27/18 0508 MR#: [id number] Acct: [id number] Name: LESLIE DAVIS Rep #: [id number] : 1955 62 From: Aaron Ochoa DO PCP: KSAI FONTANEZ [facility] Status: ADM IN Y Location: ICU ICU01-1 [...] Arturo Lomeli MD at 15:40 EST Tel [phone], Service support , Chest X-Ray 01/26/18 16:00 [...] her air leak was minimal with the greenskeeper head balloon of her endotracheal tube deflated. Therefore, [...] data and collaboration with the care team. ([id number]) Code Visit 9xxxx: [id number] Critical care first hour 01/28/18 0648 <Electronically signed by Aaron Ochoa DO> Date Aaron Ochoa DO Cosigner Signature (if applicable): Date CC: Aaron Ochoa D.O.; Natalie TINOCO; KASI RAMOS [facility] Signed 12 LEAD ELECTROCARDIOGRAM Observed: 01/27/2018 Status: F Source: [place] 2:08 PM [facility] REPOSITORY [facility] Cardiovascular Services [address] [place] [address] 12 Lead EKG 01/26/18 0416 MR#: [id number] Acct: [id number] Name: LESLIE DAVIS Rep #: [id number] : 1955 62 From: Chino Ferrara MD [...] ECG Confirmed by JOSIAS ARGUETA, CHINO ([id number]), science editor EMELYN ZENDEJAS ([id number]) on 01/27/2018 2:08:16 PM Referred By: Natalie Horner Confirmed By:CHINO FERRARA MD 01/27/18 1408 Date Chino Ferrara MD CC: Dana [place] MD; Bird Brizuela MD; Natalie TINOCO; KASI [facility] Signed BASIC METABOLIC Collected: 01/27/2018 Status: F Source: [place] PROFILE (BMP) 5:30 AM [facility] REPOSITORY Order Comment: REDRAW. PREVIOUS SPECIMEN REJECTED [...] 9 Performed By: #### L500.2500, L501.5200 #### [facility] [address] [place], [address] MAGNESIUM Collected: 01/27/2018 Status: F Source: [place] 5:30 AM [facility] REPOSITORY Order Comment: REDRAW. PREVIOUS SPECIMEN REJECTED DUE TO HEMOLYSIS. 01/27/18 0501 Darline Whittaker. TYPE CODE TESTS RESULT OUT OF RANGE REFERENCE UNITS LAB L501.5200 1.6-2.6 mg/dL Normal MG 2.0 Performed By: #### L500.2500, L501.5200 #### [facility] [address] [place], [address] CBC W/DIFF, AUTOMATED Collected: 01/27/2018 Status: F Source: [place] 4:15 AM [facility] REPOSITORY TYPE CODE TESTS RESULT OUT OF [...] Lymph 0.80 Performed By: #### L100.0100 #### [facility] [address] [place], [address] Observed: 01/27/2018 Status: F Source: [place] CULTURE, SPUTUM 4:00 AM [facility] REPOSITORY Gram Stain Gram Stain 4+ White Blood Cells 4+ Gram positive cocci Resp. Culture Mixed normal respiratory travon. No Haemophilus, Streptococcus pneumoniae, beta-hemolytic Streptococcus or Staphylococcus aureus isolated. Performed By: #### M100.0800 #### [facility] [address] [place], [address] BLOOD GASES BY CPS Collected: 01/26/2018 Status: F Source: [place] 7:06 PM [facility] REPOSITORY TYPE CODE TESTS RESULT OUT OF [...] ISTAT 99 Performed By: #### L9000.0800 #### [facility] Point of Care [address] [place], [place] [address] PHOSPHORUS Collected: 01/26/2018 Status: F Source: [place] 5:05 PM [facility] REPOSITORY TYPE CODE TESTS RESULT OUT OF RANGE REFERENCE UNITS LAB L501.2300 2.5-4.9 mg/dL Normal PHOS 3.8 Performed By: #### L501.2300 #### [facility] [address] [place], [address] CBC W/DIFF, AUTOMATED Collected: 01/26/2018 Status: F Source: [place] 5:05 PM [facility] REPOSITORY TYPE CODE TESTS RESULT OUT OF [...] NEUTROPHILIA NOTED Performed By: #### L100.0100 #### [facility] [place], [address] COMPREHENSIVE METABOLIC Collected: 01/26/2018 Status: F Source: [place] [facility] 5:05 PM [facility] REPOSITORY TYPE CODE TESTS RESULT OUT OF [...] Performed By: #### L500.4050, L501.5200, L501.9520 #### [facility] [address] [place], [address] MAGNESIUM Collected: 01/26/2018 Status: F Source: [place] 5:05 PM [facility] REPOSITORY TYPE CODE TESTS RESULT OUT OF RANGE REFERENCE UNITS LAB L501.5200 1.6-2.6 mg/dL Normal MG 2.6 Performed By: #### L500.4050, L501.5200, L501.9520 #### [facility] [address] [place], [address] THYROID STIM HORMONE Collected: 01/26/2018 Status: F Source: [place] (TSH) 5:05 PM [facility] REPOSITORY TYPE CODE TESTS RESULT OUT OF RANGE REFERENCE UNITS LAB L501.9520 0.358-3.74 uIU/mL Normal TSH 2.30 Performed By: #### L500.4050, L501.5200, L501.9520 #### [facility] [address] [place], [address] STRESS TEST ECHO W/O Observed: 01/26/2018 Status: F Source: [place] CONTRAST 4:11 PM [facility] REPOSITORY [facility] [address] [place] [address] Stress Test Echo w/o Contrast MR#: [id number] Acct: [id number] Name: LSELIE DAVIS Rep #: [id number] : 1955 62 From: Chino Ferrara MD Primary Care: KASI RAMOS [facility] Status: ADM IN Ordering Dr: Bird Brizuela [...] Physician: Natalie Greene Performed By: Alejandra Maher, RDCS, RVT 01/26/18 1611 Date Chino Ferrara MD CC: Bird Brizuela MD; Natalie TINOCO; [facility] Date Dictated: 01/26/18 1031 Date Transcribed: 01/26/181610 Hand Candle Molder: Signed CHEST 1 VIEW Observed: 01/26/2018 Status: F Source: [place] (PORTABLE) 3:36 PM [facility] REPOSITORY [facility] Imaging Services [address] [place] [address] [place] [address] Chest 1 View (Portable) MR#: [id number] Acct: [id number] Name: LESLIE DAVIS Rep #: [id number] : 1955 F 62 From: Shreyas Mccloud MD PCP: [facility] Status: ADM IN Study: Chest 1 View (Portable) Date of Exam: 01/26/18 Exam# [id number] Ordering Dr: Bird Brizuela MD STUDY: X-RAY [...] support , CC: Bird Brizuela MD; KASI COLONAASHLEY [facility] Hand Candle Molder: Signed CHEST 1 VIEW Observed: 01/26/2018 Status: F Source: [place] (PORTABLE) 3:20 PM [facility] REPOSITORY [facility] Imaging Services [address] [place] [address] Chest 1 View (Portable) MR#: [id number] Acct: [id number] Name: LESLIE DAVIS Rep #: [id number] : 1955 F 62 From: Arturo Lomeli MD PCP: KASI RAMOS [facility] Status: ADM IN Study: Chest 1 View (Portable) Date of Exam: 01/26/18 Exam# [id number] Ordering Dr: Bird Brizuela MD STUDY: X-RAY [...] Arturo Lomeli MD at 15:40 EST Tel [phone], Service support , CC: Bird Brizuela MD; KASI RAMOS [facility] Hand Candle Molder: Signed TROPONIN-I Collected: 01/26/2018 Status: F Source: [place] 11:08 AM [facility] REPOSITORY Order Comment: 'TROP' Serial specimen #1, #2 or #3: 3 TYPE CODE TESTS RESULT OUT OF RANGE REFERENCE UNITS LAB L501.4010 <0.045 ng/mL Normal < 0.015 TROPONIN-I Result Comment: TROPONIN-I EXPECTED VALUES <0.045 Negative 0.045 - 0.590 Consistent with Cardiac Damage > OR = 0.600 Critical Value Not every elevated troponin is indicative of NC. These values should be used with clinical judgement in examining the patient's clinical picture for diagnosis. To establish a diagnosis of NC versus myocardial injury, there must be a demonstrated rise and/or fall in the troponin values, in addition to ischemic symptoms, EKG changes, new regional wall motion abnormality, and/or angiographical evidence. PLEASE NOTE: REFERENCE RANGES EDITED 17 Performed By: #### L501.4010 #### [facility] [place], [address] TROPONIN-I Collected: 01/26/2018 Status: F Source: [place] 8:10 AM [facility] REPOSITORY Order Comment: 'TROP' Serial specimen #1, #2 or #3: 2 TYPE CODE TESTS RESULT OUT OF RANGE REFERENCE UNITS LAB L501.4010 <0.045 ng/mL Normal < 0.015 TROPONIN-I Result Comment: TROPONIN-I EXPECTED VALUES <0.045 Negative 0.045 - 0.590 Consistent with Cardiac Damage > OR = 0.600 Critical Value Not every elevated troponin is indicative of NC. These values should be used with clinical judgement in examining the patient's clinical picture for diagnosis. To establish a diagnosis of NC versus myocardial injury, there must be a demonstrated rise and/or fall in the troponin values, in addition to ischemic symptoms, EKG changes, new regional wall motion abnormality, and/or angiographical evidence. PLEASE NOTE: REFERENCE RANGES EDITED 17 Performed By: #### L501.4010 #### [facility] [address] [place], [address] HISTORY AND PHYSICAL Observed: 01/26/2018 Status: F Source: [place] EXAM 6:18 AM [facility] REPOSITORY [facility] Medical Records Department [address] [place] [address] History and Physical 01/26/18 0543 MR#: [id number] Acct: [id number] Name: LESLIE DAVIS Rep #: [id number] : 1955 62 From: Ino Null MD PCP: KASI RAMOS [facility] Status: ADM ADIEL Y Location: [place] [address] Problem List (1) Chest pain Status: Acute [...] Nasal 2 spray NASAL DAILY PRN 05/14/17 [place]] Surgical History: cholecystectomy, hysterectomy, - - Left [...] time. Code Visit OBSV E AND M: 16596 Initial observation care L3 01/26/18617 <Electronically signed by Ino Null MD> Date Ino Null MD Cosigner Signature: Date (if applicable) CC: Ino Null MD; KASI ORNELAS Signed EMERGENCY DEPARTMENT Observed: 01/26/2018 Status: F Source: [place] SUMMARY 5:18 AM [facility] REPOSITORY [facility] Medical Records Department [address] [place] [address] Emergency Department Summary 01/26/18 0416 MR#: [id number] Acct: [id number] Name: LESLIE DAVIS Rep #: [id number] : 1955 62 From: Dana Tayolr MD PCP: KASI ORNELAS Status: REG ER [...] Chest pain This note was generated with Theatro dictation software. It may contain incorrect words, spelling, and punctuation that were not noted in review of the chart prior to signing ED Disposition - Plan for ED Patient: Chief Complaint: Chest Pain Referrals: Huseyin Ornelas,Kasi Ramos [Primary Care Provider] - What to do if you have Problems For any increased pain, shortness of breath, bleeding, nausea or vomiting, chest pain, or any unexpected problems, contact your Primary Care Provider. Call [facility] ([phone]) or report to the closest Emergency Room. Call 911 if necessary. 01/26/18 0518 <Electronically signed by Dana Taylor MD> Date Dana Taylor MD Cosigner Signature (If Indicated): Date CC: KASI [facility] CHEST 1 VIEW Observed: 01/26/2018 Status: F Source: [place] (PORTABLE) 4:15 AM [facility] REPOSITORY [facility] Imaging Services [address] [place] [address] Chest 1 View (Portable) MR#: [id number] Acct: [id number] Name: LESLIE DAVIS Rep #: [id number] : 1955 F 62 From: Fuentes Estrella MD PCP: KASI RAMOS [facility] Status: REG ER Study: Chest 1 View (Portable) Date of Exam: 01/26/18 Exam# [id number] Ordering Dr: Dana Taylor MD STUDY: X-RAY [...] Service support , CC: Dana Taylor MD; [facility] Hand Candle Molder: Signed CBC W/DIFF, AUTOMATED Collected: 01/26/2018 Status: F Source: [place] 4:14 AM [facility] REPOSITORY TYPE CODE TESTS RESULT OUT OF [...] Lymph 2.57 Performed By: #### L100.0100 #### [facility] [address] [place], [place], [address] BASIC METABOLIC Collected: 01/26/2018 Status: F Source: [place] PROFILE (BMP) 4:14 AM [facility] REPOSITORY TYPE CODE TESTS RESULT OUT OF [...] 9 Performed By: #### L500.2500, L501.4010 #### [facility] [address] [place], [address] TROPONIN-I Collected: 01/26/2018 Status: F Source: [place] 4:14 AM [facility] REPOSITORY TYPE CODE TESTS RESULT OUT OF RANGE REFERENCE UNITS LAB L501.4010 <0.045 ng/mL Normal < 0.015 TROPONIN-I Result Comment: TROPONIN-I EXPECTED VALUES <0.045 Negative 0.045 - 0.590 Consistent with Cardiac Damage > OR = 0.600 Critical Value Not every elevated troponin is indicative of NC. These values should be used with clinical judgement in examining the patient's clinical picture for diagnosis. To establish a diagnosis of NC versus myocardial injury, there must be a demonstrated rise and/or fall in the troponin values, in addition to ischemic symptoms, EKG changes, new regional wall motion abnormality, and/or angiographical evidence. PLEASE NOTE: REFERENCE RANGES EDITED 17 Performed By: #### L500.2500, L501.4010 #### [facility] [address] [place], [address] STAPH AUREUS PCR Collected: 01/05/2018 Status: F Source: [place] 11:[address] [facility] [place] REPOSITORY TYPE CODE TESTS RESULT OUT OF REFERENCE UNITS RANGE LAB SASRC Nasal S aureus Spec Source LAB MRSRES Negative for MRSA MRSA by PCR. PCR LAB SARES Negative for Staph Staphylococcus aureus PCR aureus by PCR. Performed By: #### SAPCR #### [facility] [address] [place], [place] [address] URINALYSIS WITH Collected: 01/05/2018 Status: F Source: [place] MICROSCOPIC 4:[address] [facility] [place] REPOSITORY TYPE CODE TESTS RESULT OUT OF RANGE REFERENCE UNITS LAB UCOL Yellow Color Yellow LAB [facility] Clear Clarity Abnormal Cloudy Alert LAB UGLUC Negative mg/dL Glucose, Urine Negative LAB UBIL Negative Bilirubin, Urine Negative LAB UKET Negative Ketones, Urine Negative LAB USPG 1.005-1.030 Specific [place], Ur 1.023 LAB UHGB Negative Abnormal Hemoglobin/Blood, [...] Oxalate Crystal Performed By: #### UAWMIC #### [facility] [address] [place], [place] [address] Observed: 01/05/2018 Status: F Source: [place] URINE CULTURE 4:21 PM [facility] REPOSITORY Sp. Request/Comment: - Best Practice Alert: To ensure optimal transport conditions and accurate culture results transfer urine specimens to dean top C and S preservative tube. Culture Result - <10,000 CFU/ml Normal urogenital travon Performed By: #### URCUL #### [facility] [address] [place], [place] [address] CBC AND DIFFERENTIAL Collected: 01/05/2018 Status: F Source: [place] 4:19 PM [facility] REPOSITORY TYPE CODE TESTS RESULT OUT OF [...] k/uL Abs Lymph 2.15 LAB AMONO % [place]% 8.3 LAB AAMONO <0.87 k/uL Abs [place] 0.68 LAB AEOS % Eosin% 1.7 LAB AAEOS <0.46 k/uL Abs Eosin 0.14 LAB ABASO % Baso% 1.0 LAB AABASO <0.11 k/uL Abs Baso 0.08 LAB AUNRBC 0 /100 WBC NRBCs 0.0 LAB ABNRBC <0.01 k/uL Absolute nRBC <0.01 LAB DTYP DTYPE Auto Diff Performed By: #### CBCDIF, IRON, CMP, FERR #### [facility] [address] [place], [place] [address] IRON AND TIBC Collected: 01/05/2018 Status: F Source: [place] 4:19 PM [facility] REPOSITORY TYPE CODE TESTS RESULT OUT OF REFERENCE UNITS RANGE LAB IRN 41-186 ug/dL Iron 68 LAB TIBC 232-386 ug/dL TIBC 302 LAB SAT 15-57 % Transferrin Saturatn 23 Performed By: #### CBCDIF, IRON, CMP, FERR #### [facility] [address] [place], [place] [address] COMP METABOLIC PANEL Collected: 01/05/2018 Status: F Source: [place] 4:[address] [facility] REPOSITORY TYPE CODE TESTS RESULT OUT OF REFERENCE UNITS RANGE LAB TP 6.3-8.0 g/dL Protein, Total 7.7 LAB ALB 3.9-4.9 g/dL Albumin 4.1 LAB CA 8.5-10.2 mg/dL Calcium, Total 10.0 LAB TBIL 0.2-1.3 mg/dL Bilirubin, Total 0.4 LAB ALKP 34-123 U/L Alkaline Phosphatase 87 LAB AST 13-35 U/L AST 23 LAB GLU 74-99 mg/dL Glucose 86 Result Comment: The [place] [employer] (ADA) provides guidance for [...] Standards of Medical Care in Diabetes 2016, [place] [employer]. Diabetes Care. 2016.39(Suppl 1). [...] has been calibrated to be traceable to IDMS. An eGFR <60 mL/min/1.73m2 for >3 months is consistent with chronic kidney disease. Refer to KDOQI guidelines for clinical interpretation. In patients with unstable renal function, e.g. those with acute kidney injury, the eGFR may not accurately reflect actual GFR. Performed By: #### CBCDIF, IRON, CMP, FERR #### [facility] [address] [place], [place] [address] FERRITIN Collected: 01/05/2018 Status: F Source: [place] 4:19 PM [facility] REPOSITORY TYPE CODE TESTS RESULT OUT OF REFERENCE UNITS RANGE LAB FERR 14.7-205.1 ng/mL High Ferritin 214.8 Performed By: #### CBCDIF, IRON, CMP, FERR #### [facility] [address] [place], [place] [address] HISTORY PHYSICAL Observed: 01/05/2018 Status: COMPLETED Source: [place] 3:44 PM [facility] REPOSITORY HNO ID: [id number] Author: Gracie Cruz (Pa) Service: (none) Author Type: Physician Construction Flagger Type: HANDP Filed: 01/14/2018 12:12 PM Note [...] Father gastric - Coronary Artery Disease Father NC x3 SOCIAL HISTORY: Social History Marital status: Single Spouse name: Years of education: Number of children: Social History Main Topics Smoking status: Never Smoker Smokeless tobacco: Never Used Alcohol use: No Drug use: No Sexual activity: Not Currently Prior to Admission medications as of 01/05/18 1543 Medication Sig Last Dose Taking Cbhhmfrnzagkg-Ph-Layy-Minerals tab Take by mouth once daily. Yes [...] No history of TIAs, stroke, headaches, tremors, LPN MEDICAL ASSISTANT tumor, hemiplegia, paraplegia, quadriplegia. Respiratory: SAGASTUME due [...] or arrhythmia. Negative for h/o DVT/PE. No NC or heart surgery GI: No history of GI symptoms or problems. No history of esophageal varices, recent ascites, or ETOH greater than 2 drinks per day. : No history of dysuria, frequency or incontinence,, stones or chronic kidney disease STUD SETTER: Negative for abnormal vaginal bleeding, abnormal vaginal [...] rhythm, normal axis, normal intervals, reviewed by project engineering director. All in Epic Assessment ASSESSMENT Patient has [...] #: PROGRESS Observed: 12/22/2017 Status: COMPLETED Source: [place] 2:[address] [facility] REPOSITORY HNO ID: [id number] Author: Ishaan Gregorio Service: (none) Author Type: Physician Type: Progress Notes Filed: 01/06/2018 11:05 AM Note Text: CONSULT ORTHOPAEDIC: HIP PRIMARY CARE PHYSICIAN: Natalie L Swihart, HSE ADVISOR REFERRING PROVIDER: ER Staff [facility] [address] [facility] [address] ASSESSMENT AND PLAN: Impression: Left Hip Severe [...] month(s) interfering with activities which include doing nutrient management specialist, participating in family activities, enjoying hobbies, walking, [...] Father gastric - Coronary Artery Disease Father NC x3 Social History Marital status: Unknown Spouse [...] PM PROGRESS Observed: 12/22/2017 Status: COMPLETED Source: [place] 2:13 PM [facility] REPOSITORY HNO ID: [id number] Author: Monserrat Soto Ma Service: (none) Author [...] bothering her. She is still working at [employer]. X-ray done at [facility] on 11/29/2017. CNOV Observed: 12/22/2017 Status: COMPLETED Source: [place] 1:40 PM [facility] REPOSITORY Office Visit (ADE) LESLIE DAVIS ([id number]) 1955 F Date Time Provider Department 12/22/17 [...] bothering her. She is still working at [employer]. X-ray done at [facility] on 11/29/2017. Ishaan Gregorio MD 01/06/2018 11:05 AM Signed CONSULT ORTHOPAEDIC: HIP PRIMARY CARE PHYSICIAN: Natalie Horner CNP REFERRING PROVIDER: ER Staff [facility] [address] [facility] [address] ASSESSMENT AND PLAN: Impression: Left Hip Severe [...] month(s) interfering with activities which include doing nutrient management specialist, participating in family activities, enjoying hobbies, walking, [...] HISTORY Procedure Laterality Date - CHOLECYSTECTOMY 1999 [place] - COLONOSCOPY 2013 normal, peformed by Dr. Nguyen - Wade TOTAL ABDOMINAL HYSTERECTOMY 2000 FAMILY HISTORY Problem Relation Age of Onset - Diabetes Mother - Breast Cancer Sister 61 - Diabetes Brother - Stroke Brother - Diabetes Brother - Cancer Father gastric - Coronary Artery Disease Father NC x3 Social History Marital status: Unknown Spouse [...] TIME: 2:43 PM Referring Provider: ER STAFF [[id number]] Allergies As of Date: 12/22/2017 (No Known Allergies) Date Reviewed: 12/22/2017 Reviewed by: Ishaan Gregorio - Fully Assessed Reason for Visit: New Patient [172] Cmt: Left hip pain [facility] ER 11/29/2017 Primary Visit Diagnosis:Primary osteoarthritis of left hip [M16.12] Other Visit Diagnoses:Chronic left hip pain [M25.552, G89.29] Class 2 obesity without serious comorbidity with body mass index (BMI) of 36.0 to 36.9 in adult, unspecified obesity type [E66.9, Z68.36] Anemia, unspecified type [D64.9] Order(s):PATIENT PLACED ON RORY ALIYAH CARE PATH [4941536] Order #: [id number]: 1 ALBUMIN BLD [SQALB] Order #: [id number] FUTURE VITAMIN B12 BLOOD [SQB12] Order #: [id number] FUTURE FOLATE SERUM [SQSERFOL] Order #: [id number] FUTURE RETIC COUNT [SQRETIC] Order #: [id number] FUTURE TOTAL JOINT REPLACEMENT PRE-SURGERY EDUCATION CLASS [[id number]] Order #: [id number]: 1 Prescriptions as of 12/22/2017 Sig: MELOXICAM [...] MAMM (CAD), Observed: 12/03/2017 Status: F Source: [place] BILAT 3:26 PM [facility] REPOSITORY [facility] Imaging Services [address] [place] [address] SCREENING MAMM (CAD), BILAT MR#: [id number] Acct: [id number] Name: LESLIE DAVIS Rep #: [id number] : 1955 F 62 From: Arturo Lomeli MD PCP: KASI RAMOS [facility] Status: REG CLI Study: SCREENING MAMM (CAD), BILAT Date of Exam: 12/03/17 Exam# [id number] Ordering Dr: [facility] Kasi Ornelas MAMMOGRAPHY - BILATERAL SCREENING REASON FOR EXAM: [...] delay biopsy of a clinically suspicious abnormality. [id number] Electronically Signed: Arturo Lomeli MD at 8:58 EDT Tel [phone], Service support , CC: KASI FONTANEZ [facility] Hand Candle Molder: Signed EMERGENCY DEPARTMENT Observed: 12/03/2017 Status: F Source: [place] SUMMARY 7:19 AM [facility] Medical Records Department [address] [place] [address] Emergency Department Summary 11/29/17 1205 MR#: [id number] Acct: [id number] Name: LESLIE DAVIS Rep #: [id number] : 1955 62 From: Jake Calabrese DO PCP: KASI ORNELAS Status: DEP ER - [...] trochanteric bursitis This note was generated with Theatro dictation software. It may contain incorrect words, [...] 40 mg PO DAILY #10 tab Referrals: [facility] Kasi Ornelas [Primary Care Provider] - 1 Week if not improving Alex Zendejas MD [STAFF PHYSICIAN] - 1 Week if not improving What to do if you have Problems For any increased pain, shortness of breath, bleeding, nausea or vomiting, chest pain, or any unexpected problems, contact your Primary Care Provider. Call [facility] ([phone]) or report to the closest Emergency Room. Call 911 if necessary. 12/03/17 0719 <Electronically signed by Jake Calabrese DO> Date Jake Calabrese DO Cosigner Signature (If Indicated): Date CC: KASI LARSONALICIA [facility] HIP, UNI W/ PELVIS Observed: 11/29/2017 Status: F Source: [place] 2-3 VIEWS 11:26 AM [facility] REPOSITORY [facility] Imaging Services [address] [place] [address] HIP, UNI W/ Pelvis 2-3 Views MR#: [id number] Acct: [id number] Name: LESLIE DAVIS Rep #: [id number] : 1955 F 62 From: Jey Landers MD PCP: KASI RAMOS [facility] Status: DEP ER Study: HIP, UNI W/ Pelvis 2-3 Views Date of Exam: 11/29/17 Exam# [id number] Ordering Dr: Jake Calabrese DO STUDY: X-RAY [...] support , CC: Jake Calabrese DO; KASI [facility] Hand Candle Molder: RONIT Raya W/ Observed: 11/29/2017 Status: F Source: [place] PELVIS 2-3 VIEWS 12:[address] [facility] [place] REPOSITORY Images were obtained outside of [facility] [id number] DISCHARGE INSTRUCTION Observed: 06/03/2017 Status: F Source: [place] 11:52 AM [facility] REPOSITORY [facility] Medical Records Department [address] [place] [address] Instructions for Home/Discharge Instructions 06/03/17 1151 MR#: [id number] Acct: [id number] Name: LESLIE DAVIS Rep #: [id number] : 1955 61 From: Tiffany Oreilly P[facility]: [facility] Status: ADM IN Discharge Diet: No Restrictions [...] sheet Additional Instructions: Dr. Alex Zendejas (cell) [phone] Allergies/Adverse Reactions: Allergies No Known Allergies Allergy (Verified 05/14/17 14:55) Medications to take at Discharge Duloxetine HCl 30 mg PO DAILY 06/14/16 Fluticasone 0.05% [Flonase Nasal [place]] 2 spray NASAL DAILY PRN 05/14/17 Loratadine [...] PO BID #30 tab Primary Care Physician: [facility] Ceci,Kasi Ramos [Primary Care Provider] - 06/03/17 1152 <Electronically signed by Tiffany Oreilly > Date Tiffany Oreilly CC: KASI RAMOS [facility] CBC-COMPLETE BLOOD CNT Collected: 06/03/2017 Status: F Source: [place] NO DIFF 4:58 AM [facility] REPOSITORY TYPE CODE TESTS RESULT OUT OF [...] MPV 9.8 Performed By: #### L100.0500 #### [facility] [address] [place], [address] BASIC METABOLIC Collected: 06/03/2017 Status: F Source: [place] PROFILE ([facility]) 4:58 AM [facility] REPOSITORY TYPE CODE TESTS RESULT OUT OF [...] GAP 7 Performed By: #### L500.2500 #### [facility] [address] [place], [address] OPERATIVE REPORT Observed: 06/02/2017 Status: F Source: [place] 11:51 AM [facility] REPOSITORY [facility] Medical Records Department [address] [place] [address] Operative Report 06/02/17 1147 MR#: [id number] Acct: [id number] Name: LESLIE DAVIS Rep #: [id number] : 1955 61 From: Alex Zendejas MD PCP: KASI [facility]ONTANEZ [facility] Status: ADM IN Y Location: [facility] [id number] Operative Report Date of Procedure: 06/02/17 Preoperative diagnosis: [Right] hip primary osteoarthritis Postoperative diagnosis: Same Operation: [Right] total hip replacement surgery Surgeon: Dr. Alex Zendejas MD Construction Flagger: Tiffany Oreilly PA-C Second records assistant yes Anesthesia: Spinal Anesthesiologist Dr. Quevedo [...] safe for surgery by the anesthesia department corporate law assistant, physician records assistant, was utilized throughout the entire procedure. They were vital in helping with patient positioning, holding of retractors, exposing the tissues adequately for safe completion of the procedure including cutting of the bone, helping drill press set up operator appropriate alignment and sizing of the components, implantation of the components, as well as wound closure, bandage application, and safe patient transfer. Without salesperson surgical appliances, physician records assistant, surgical time would have been significantly [...] surgeon. Leg was appropriately rotated by the records assistant. Retractor was used to lift the [...] placed by the surgeon, held by the records assistant. Bone hook utilized to pull the [...] proximal femoral elevator utilized. Held by the records assistant. We placed a pointed Hom[place] at the anterior and posterior aspect of that retractor by the other records assistant. We used a sharp awl entering down inside the bone of the proximal femur. Utilized the brandon cutting osteotome the proximal lateral greater trochanteric [...] 1-3 days This note was generated with SemiLevation software. It may contain incorrect words, spelling, and punctuation that were not noted in checking the note before signing. 06/02/17 1151 <Electronically signed by Alex Zendejas MD> Date Alex Zendejas MD CC: Alex Zendejas MD; [facility] Signed TOTAL HIP REPLACEMENT Observed: 06/02/2017 Status: F Source: [place] 9:55 AM [facility] REPOSITORY Patient: LESLIE DAVIS : 1955 (61/F) Acct Num: [id number] Phys: Alex Zendejas MD Unit Num: [id number] Loc: MS3 [id number] Specimen: [id number] Received: 06/02/17 - 1307 Spec Type: TOTAL [...] aggregate 6 x 6 x 1.5 cm. Resident Care Aid sections are submitted in three cassettes as follows: 1 bone reamings, 2 AND 3 femoral head after decalcification. / LYRIC:shania 06/02/17 TC: 5 CPT: 81523, 47845 HEADER OPERATION: Right total hip replacement PRE-OP DIAGNOSIS: Right hip severe primary osteoarthritis TISSUE SUBMITTED: Right femoral head and soft tissue MICROSCOPIC DESCRIPTION Slides are reviewed. MICROSCOPIC DIAGNOSIS Right femoral head and soft tissue, total hip replacement/resection: Femoral head with degenerative osteoarthritic changes. SJ:shania 06/09/17 Signed Maurilio Ivey 06/09/17 <signature on file> Performed By: #### PHIP #### [facility] [address] [place], [address] HIP MIN 2 VIEWS Observed: 06/02/2017 Status: F Source: [place] (PORTABLE) 9:35 AM [facility] REPOSITORY [facility] Imaging Services [address] [place] [address] Hip Min 2 Views (Portable) MR#: [id number] Acct: [id number] Name: LESLIE DAVIS Rep #: [id number] : 1955 F 61 From: Arturo Lomeli MD PCP: KASI RAMOS [facility] Status: ADM IN Study: Hip Min 2 Views (Portable) Date of Exam: 06/02/17 Exam# [id number] Ordering Dr: Alex Zendejas MD STUDY: X-RAY [...] Arturo Lomeli MD at 15:48 EDT Tel [phone], Service support , CC: Alex Zendejas MD; [facility] Hand Candle Molder: Signed 12 LEAD ELECTROCARDIOGRAM Observed: 05/16/2017 Status: F Source: [place] 1:32 PM [facility] REPOSITORY [facility] Cardiovascular Services [address] [place] [address] EKG - [facility] 05/14/17 1529 MR#: [id number] Acct: [id number] Name: LESLIE DAVIS Rep #: [id number] : 1955 61 From: Perry Márquez MD Attending Dr: Alex Zendejas MD Status: PRE IN Ordering Dr: Alex Zendejas MD Date: 05/14/17 Location: [facility] Sex: F C Admitted: Test Reason : Blood Pressure : / mmHG Vent. Rate : 077 BPM Atrial Rate : 077 BPM P-R Int : 142 ms QRS Dur : 072 ms QT Int : 378 ms P-R-T Axes : 042 056 030 degrees QTc Int : 427 ms Normal sinus rhythm Normal ECG Confirmed by YULISA ARGUETA, PERRY ([id number]), science editor EMELYN ZENDEJAS ([id number]) on 05/16/2017 1:32:07 PM Referred By: Alex Zendejas Confirmed By:PERRY MÁRQUEZ MD 05/16/17 1332 Date Perry Márquez MD CC: Alex Zendejas MD; KASI RAM[facility] Date Dictated: 05/14/17 152 Date Transcribed: 05/14/17 152 Hand Candle Molder: Signed CBC-COMPLETE BLOOD CNT Collected: 05/14/2017 Status: F Source: [place] NO DIFF 3:30 PM [facility] REPOSITORY TYPE CODE TESTS RESULT OUT OF [...] MPV 9.9 Performed By: #### L100.0500 #### [facility] [address] [place], [address] BASIC METABOLIC Collected: 05/14/2017 Status: F Source: [place] PROFILE ([facility]) 3:30 PM [facility] REPOSITORY TYPE CODE TESTS RESULT OUT OF [...] GAP 8 Performed By: #### L500.2500 #### [facility] [address] [place], [address] Observed: 05/14/2017 Status: F Source: [place] MRSA/SAID SCREEN 3:30 PM [facility] REPOSITORY MRSA/SAID SCRN S. AUREUS S. aureus Negative MRSA MRSA Negative Performed By: #### M100.651 #### [facility] [address] [place], [address] CBC W/DIFF, AUTOMATED Collected: 05/01/2017 Status: F Source: [place] 12:16 PM [facility] REPOSITORY TYPE CODE TESTS RESULT OUT OF [...] 1.95 Performed By: #### L100.0100, L101.9900 #### [facility] [address] [place], [address] ERYTHROCYTE SED RATE Collected: 05/01/2017 Status: F Source: [place] 12:16 PM [facility] REPOSITORY TYPE CODE TESTS RESULT OUT OF RANGE REFERENCE UNITS LAB L102.0000 0-30 mm/hr Normal SED RATE 23 Performed By: #### L100.0100, L101.9900 #### [facility] [address] [place], [address] CRP, HIGH SENSITIVITY Collected: 05/01/2017 Status: F Source: [place] CARDIAC 12:16 PM [facility] REPOSITORY TYPE CODE TESTS RESULT OUT OF RANGE REFERENCE UNITS LAB L501.6750 mg/L Normal CRP HIGH 2.75 SENS Result Comment: Low Relative Risk of CVD <1.0 mg/L Average Relative Risk of CVD 1.0 - 3.0 mg/L High Relative Risk of CVD >3.0 mg/L Performed By: #### L501.6750 #### [facility] [address] [place], [address] ALLERGIES ALLERGIES DATE TYPE / CODE NAME / CODE REACTION SEVERITY SOURCE 04/02/2018 Drug Uvofbvq-Tmv-Eyd Anaphylaxis SV Y[place] Allergy/416 Reductase Community 818633(SNOM Inhibitor/S77434 Hospital ED CT) 0095(RXNORM) Repository 04/02/2018 Drug atorvastatin/F00 Anaphylaxis Unknown Pearl Allergy/709 3684852(RXNORM) Community 006812([facility] ED CT) Repository 11/29/2017 Drug No Known Unknown Yandy Allergy/416 Allergies/E81945 Community 545141(SNOM 0388(RXNORM) Hospital ED CT) Repository Drug NO KNOWN [facility] Class/62007 ALLERGIES Main [place] 1003(SNOMED Repository CT) ENCOUNTERS ENCOUNTERS ADMIT/DISCHARGE ACCOUNT ADMITTING ENCOUNTER LOCATION SOURCE NUMBER CLASS 04/02/2018/04/02/19 [id number] Ambulatory BMSBuilding:Kristie Wagner MS.[facility] Repository 03/05/2018 [id number] Ambulatory BMSBuilding:[facility] Repository 03/04/2018 [id number] Ambulatory [facility] Hospital ing:PSN Repository 02/24/2018 [id number] Ambulatory BMSBuilding:[facility] Repository 02/23/2018 [id number] Ambulatory [facility] Hospital ing:PSN Repository 02/11/2018/02/12/20 [id number] Ambulatory BMSBuilding:Kristie Obando MS.[facility] Repository 01/26/2018/01/30/20 [id number] Agyepong, Inpatient [address] ing:PCURoom: Repository AGQ227Lsp: 1 01/26/2018 [id number] Agyepong, Ambulatory BMSBuilding:Kristie Mckinnon MS.[facility] Repository 01/26/2018 [id number] Agyepong, Ambulatory BMSBuilding:Kristie Mckinnon MS.CF.[facility] Repository 01/26/2018 [id number] Agyepong, Ambulatory BMSBuilding:Kristie Mckinnon MS.[facility] Repository 01/26/2018 [id number] Agyepong, Ambulatory BMSBuilding:Kristie Mckinnon MS.CF.[facility] Repository 01/26/2018 [id number] Agyepong, Ambulatory BMSBuilding:Kristie Mckinnon MS.CF.[facility] Repository 01/26/2018 [id number] Agyepong, Ambulatory BMSBuilding:Kristie Mckinnon MS.[facility] Repository 01/26/2018/01/30/20 [id number] Ambulatory BMSBuilding:W [address] Repository 01/26/2018 [id number] Agyepong, Ambulatory BMSBuilding:Kristie Mckinnon MS.[facility] Repository 01/05/2018/01/06/20 [id number] Ambulatory [address] Repository 01/05/2018/01/06/20 [id number] Ambulatory [address] Repository 12/22/2017/01/07/20 [id number] Ambulatory [address] Repository 12/03/2017 [id number] Ambulatory [facility] ing:OPBI Repository 11/29/2017/11/30/19 [id number] Emergency [address] ing:ED Repository 06/02/2017/06/04/19 [id number] Zendejas, Inpatient [place] [address] Alex Encounter [facility] ing:WH6Adcs: Repository CP205Syr: 1 05/14/2017 [id number] Ambulatory BMSBuilding:[facility] Repository 05/01/2017 [id number] Ambulatory [facility] ing:LAB Repository PAYERS PAYERS ENCOUNTER GUARANTOR PAYER SUBSCRIBER SOURCE 04/02/2018 LESLIE S Primary Insurance:[facility] LESLIE S Pearl [id number] [facility] Number: [id number], [place] [id number] Repository 6[address]Tdh: 330) Date:7984-19-01GZ [address] () [address] [place] [address]HH: 04/02/2018 Secondary NOT GIVENUNK Yandy Insurance:SELF PAY [facility] Number: Effective Repository Date:2018-03-30 03/05/2018 LESLIE S Primary LESLIE S Yandy [id number] Insurance:CARESOURCE BURGESSDOB: [facility] [address] [facility] [id number] Number: Repository [address]Pnr: 330 [id number] 51 () Date:8543-48-10FR [facility] [address] [place] [address]YS: 03/05/2018 Secondary LESLIE S Yandy Insurance:[facility] BURGESSDOB: [facility] [id number] Hospital Number: Repository [id number] Date:5054-49-77IT [address] [address]AS: 03/05/2018 Tertiary NOT GIVENUNK Yandy Insurance:SELF PAY [facility] Number: Effective Repository Date:2018-03-05 03/04/2018 LESLIE S Primary LESLIE S Pearl [id number] Insurance:[employer]OURCE BURGESSDOB: Community [address] JUST FOR [facility] 9613-07-50[place], [place] Number: Repository [address]Ijb: [phone] [id number] [phone] () Date:5940-45-49WY [address] [address]ZM: 03/04/2018 Secondary LESLIE S Yandy Insurance:[facility] BURGESSDOB: [facility] [id number] Hospital Number: Repository [id number] Date:0324-14-20GQ [address] [address]KY: 03/04/2018 Tertiary NOT GIVENUNK Pearl Insurance:SELF PAY [facility] Number: Effective Repository Date:2018-02-11 02/24/2018 LESLIE S Primary LESLIE S Pearl [id number] Insurance:[employer] BURGESSDOB: [facility] [address] JUST [facility] [id number], [place] Number: Repository [address]Mey: [phone] [id number] [phone] () Date:7365ME [address] [address]VI: 02/24/2018 Secondary LESLIE S Yandy Insurance:[facility] BURGESSDOB: [facility] [id number] Hospital Number: Repository [id number] Date:3357-58-19PY [address] [address]UX: 02/24/2018 Tertiary NOT GIVENUNK Yandy Insurance:SELF PAY [facility] Number: Effective Repository Date:2018-02-24 02/23/2018 LESLIE S Primary LESLIE S Yandy [id number] Insurance:[employer] BURGESSDOB: Community [address] JUST FOR [facility] [id number] Number: Repository [address]Plq: [phone] [id number] [phone] () Date:2610-49-16GR [address] [place] [address]NP: 02/23/2018 Secondary LESLIE S Yandy Insurance:[facility] BURGESSDOB: [facility] [id number] Number: Repository [id number] Date:8663-25-76VU [address] [place] [address]OM: 02/23/2018 Tertiary NOT GIVENUNK Pearl Insurance:SELF PAY [facility] Number: Effective Repository Date:2018-02-11 02/11/2018 LESLIE S Primary LESLIE S Pearl [id number] Insurance:[employer] BURGESSDOB: Community [place] [place] JUST FOR [place] [id number], Number: [place]ository [place] [id number]: [id number] Date:3279-04-50MC [address] () [address] [place] [address]DL: 02/11/2018 Secondary LESLIE S Pearl Insurance:[facility] BURGESSDOB: [facility] [id number] Number: Repository [id number] Date:4142-13-50FR [address] [place] [address]RO: 02/11/2018 Tertiary NOT GIVENUNK Yandy Insurance:SELF PAY [facility] Number: Effective Repository Date:2018-02-11 01/26/2018 LESLIE S Primary LESLIE S Yandy [id number] Insurance:[employer]OURCE BURGESSDOB: Community [place] [place] JUST FOR [address], Number: [place]ository [place] [address]Kbb: [id number] Date:6623-18-54RQ [address] () [place], [place] [address]AD: 01/26/2018 Secondary LESLIE S Pearl Insurance:[facility] BURGESSDOB: [facility] [id number] Hospital Number: Repository [id number] Date:4280-57-74HE [address] [address]ZL: 01/26/2018 Tertiary NOT GIVENUNK Pearl Insurance:SELF PAY [facility] Number: Effective Repository Date:2018-01-26 01/26/2018 LESLIE S Primary LESLIE S Pearl [id number] Insurance:[employer] BURGESSDOB: Community [place] JUST FOR [facility] [id number] [facility], Number: [place]ository [place] [address]Iwu: [id number] Date:7130-03-20SR [address] () [place], [place] [address]ZI: 01/26/2018 Secondary LESLIE S Pearl Insurance:[facility] BURGESSDOB: [facility] [id number] Hospital Number: Repository [id number] Date:5053-30-15TZ [address] [address]LH: 01/26/2018 Tertiary NOT GIVENUNK Yandy Insurance:SELF PAY [facility] Number: Effective Repository Date:2018-01-26 01/26/2018 LESLIE S Primary LESLIE S Pearl [id number] Insurance:[employer] BURGESSDOB: Community [place] JUST FOR [facility] [id number] [facility], Number: [place] [address]Fip: [id number] Date:5542-68-34KA BOX () [place], [place] [address]JC: 01/26/2018 Secondary LESLIE S Yandy Insurance:[facility] BURGESSDOB: [facility] [id number] Hospital Number: Repository [id number] Date:4324-06-04XV [address] [address]KE: 01/26/2018 Tertiary NOT GIVENUNK Yandy Insurance:SELF PAY [facility] Number: Effective Repository Date:2018-01-26 01/26/2018 LESLIE S Primary LESLIE S Pearl [id number] Insurance:[employer] BURGESSDOB: Community [place] JUST FOR [facility] [id number] Johnson Rehabilitation Institute, Number: [place] [address]Wbu: [id number] Date:6012-85-17GA [address] () [address], [place] [address]WA: 01/26/2018 Secondary LESLIE S Pearl [facility] [id number] Hospital Number: Repository [id number] Date:8611-47-78XV [address] [address]NP: 01/26/2018 Tertiary NOT GIVENUNK Pearl Insurance:SELF PAY [facility] Number: Effective Repository Date:2018-01-26 01/26/2018 LESLIE S Primary LESLIE S Yandy [id number] Insurance:[employer] BURGESSDOB: Community [place] JUST FOR [facility] [id number] Johnson Rehabilitation Institute, Number: [place] [address]Dgc: [id number] Date:5098-76-07OZ BOX (NS) [address], [place] [address]DJ: 01/26/2018 Secondary LESLIE S Pearl Insurance:[facility] BURGESKSOB: [facility] [id number] Hospital Number: Repository [id number] Date:2884-64-13IP [address] [address]GB: 01/26/2018 Tertiary NOT GIVENUNK Pearl Insurance:SELF PAY Community [facility] Number: Effective Repository Date:2018-01-26 01/26/2018 LESLIE S Primary LESLIE S Yandy [id number] Insurance:[employer] BURGESSDOB: Community [place] JUST [place] [id number] Johnson Rehabilitation Institute, Number: [place]ository [place] [address]Dbf: [id number] Date:2243-41-16CN [address] () [place], [place] [address]YD: 01/26/2018 Secondary LESLIE S Yandy Insurance:[facility] BURGESSDOB: [facility] [id number] Hospital Number: Repository [id number] Date:1496-95-39XL [address] [place] [address]GZ: 01/26/2018 Tertiary NOT GIVENUNK Pearl Insurance:SELF PAY [facility] Number: Effective Repository Date:2018-01-26 01/26/2018 LESLIE S Primary LESLIE S Pearl [id number] Insurance:[employer] BURGESSDOB: Community [place] JUST FOR [place] [id number], Number: [place]ository [place] [address]Aqh: [id number] Date:5462-78-70GN [address]OX () [place], [place] [address]OY: 01/26/2018 Secondary LESLIE S Yandy Insurance:[facility] BURGESSDOB: [facility] [id number] Number: Repository [id number] Date:0869-32-93IH [address] [place] [address]FP: 01/26/2018 Tertiary NOT GIVENUNK Pearl Insurance:SELF PAY [facility] Number: Effective Repository Date:2018-01-26 01/26/2018 LESLIE S Primary LESLIE S Yandy [id number] Insurance:[employer] BURGESSDOB: Community [place] JUST FOR [address]06-08[facility], Number: Repository [place] [address]Kgt: [id number] Date:4671-55-59GJ [address] () [address], [place] [address]II: 01/26/2018 Secondary LESLIE S Yandy Insurance:[facility] BURGESSDOB: [facility] [id number] Hospital Number: Repository [id number] Date:8874-89-94GR [address] [place] [address]EJ: 01/26/2018 Tertiary NOT GIVENUNK Pearl Insurance:SELF PAY [facility] Number: Effective Repository Date:2018-01-26 01/26/2018 LESLIE S Primary LESLIE S Pearl [id number] Insurance:[employer] BURGESSDOB: Community [place] JUST FOR [facility] [id number] Johnson Rehabilitation Institute, Number: [place]ository [place] [id number]: [id number] Date:6828-94-43KG [address] () [place], [place] [address]XD: 01/26/2018 Secondary LESLIE S Pearl Insurance:[facility] BURGESSDOB: [facility] [id number] Hospital Number: Repository [id number] Date:4488-83-47MP [address] [address]UL: 01/26/2018 Tertiary NOT GIVENUNK Yandy Insurance:SELF PAY [facility] Number: Effective Repository Date:2018-01-26 12/03/2017 LESLIE S Primary LESLIE S Yandy [id number] Insurance:[employer] BURGESSDOB: Community [place] JUST FOR [place] [id number] [facility] Rehabilitation Institute, Number: Repository [place] [address]Khk: [id number] Date:6229-14-66FW BOX (HP) [place], [place] [address]KP: 12/03/2017 Secondary NOT GIVENUNK Yandy Insurance:SELF PAY [facility] Number: Effective Repository Date:2017-11-12 11/29/2017 LESLIE S Primary LESLIE S Yandy [id number] Insurance:[employer]OURCE BURGESSDOB: Community [place] JUST FOR [facility] [id number] [facility], Number: [place] [address]Uyu: [id number] Date:8260-23-02SI [address]OX () [place], [place] [address]ZB: 11/29/2017 Secondary NOT GIVENUNK Pearl Insurance:SELF PAY [facility] Number: Effective Repository Date:2017-11-29 06/02/2017 LESLIE S Primary LESLIE S Pearl [id number] Insurance:[employer] BURGESSDOB: Community [place] JUST FOR [facility] [id number] [facility], Number: [place] [address]Brs: [id number] Date:2174-44-46IF [address] () [address], [place] [address]AD: 06/02/2017 Secondary NOT GIVENUNK Yandy Insurance:SELF PAY [facility] Number: Effective Repository Date:2017-04-01 05/14/2017 LESLIE S Primary LESLIE S Pearl [id number] Insurance:CARESOURCEP BURGESSDOB: Community POINT OF VIEW [facility] Number: [id number] Johnson Rehabilitation Institute, [id number] Repository [place] [address]Itj: Date:2017-05-14[address]ATTN: CLAIMS () [place] [address]HT: 05/14/2017 Secondary NOT GIVENUNK Pearl Insurance:SELF PAY [facility] Number: Effective Repository Date:2017-05-14 05/01/2017 LESLIE S Primary LESLIE S Yandy [id number] Insurance:[employer]OURCE BURGESSDOB: Community [place] JUST FOR [facility] [id number] [facility] IVORY ESCOBAR, Number: [place] [address]Frl: [id number] Date:4491-97-71PP [address]OX (VW) [address], [place] [address]VP: 05/01/2017 Secondary LESLIE S Yandy [facility] BENJAMIN: Community icy Number: [id number] Hospital [id number] Repository Date:2017-05-01 05/01/2017 Tertiary NOT GIVENUNK Yandy Insurance:SELF PAY [facility] Number: Effective Repository Date:2017-05-01
== END ==
PROVIDERS: Referring Provider Nurse Practitioner Acute Care; Visit Provider Nurse Practitioner Acute Care
DX: R05 Cough (principal)
CPT/HCPCS: 94060; 94726; 94729

== ENCOUNTER → 2018-12-09 12:13 | Outpatient (CLI) | payer MEDICAID, SELFPAY ==
[2018-04-02 12:37] VITALS: BMI 38.5
--- NOTE | 2018-12-09 12:16 | BI_ITS ---
MAMMOGRAPHY - BILATERAL SCREENING REASON FOR EXAM: Female, 63 years old. Routine annual screening examination. PERTINENT HISTORY: Sister with breast cancer. TECHNIQUE: Digital bilateral breast romeo (3D mammographic acquisition) in the CC and MLO projections. 2-D mediolateral oblique (MLO) and craniocaudad (CC) views of both breasts were obtained. CAD: Full Field Digital Mammography with Computer Added Detection was performed. COMPARISON: Comparison is made with prior study dated December 03, 2017 and October 10, 2015. FINDINGS: Breast Composition: The breasts are almost entirely fatty. There are no dominant masses or suspicious calcifications. Stable small bilateral benign-appearing axillary lymph nodes. No other significant abnormalities are identified. There has been no significant change since the prior study. BI/SCREEN MAMM (CAD) W/ROMEO BILAT IMPRESSION: Stable bilateral screening mammogram. Yearly follow-up mammogram recommended. (A) ASSESSMENT CATEGORY: BIRADS Category 2: Benign. A letter regarding these results will be sent to the patient by the facility within 30 days. Approximately 10% of breast cancers are not detected by mammography. A normal mammogram should not delay biopsy of a clinically suspicious abnormality. [id number] Electronically Signed: Arturo Lomeli, at 13:47 EDT , Service support ,
== END ==
DX: Z12.31 Encounter for screening mammogram for malignant neoplasm of breast (principal); Z80.3 Family history of malignant neoplasm of breast
CPT/HCPCS: 77063; 77067

== ENCOUNTER 2018-12-10 11:37 | Observation (INO) | payer MEDICAID, SELFPAY ==
[2018-04-02 12:37] VITALS: BMI 38.5
[2018-12-10] VITALS (10 sets, daily range): BP systolic 119–146; BP diastolic 68–79; PULSE 70–93; RESP 15–19; TEMP 36.4–36.9; O2SAT 94–100; BMI 38.2; BMI 38.3
--- NOTE | 2018-12-10 12:10 | RAD_ITS ---
STUDY: X-RAY CHEST REASON FOR EXAM: Female, 63 years old. Chest pain. TECHNIQUE: Single AP portable view of the chest. COMPARISON: Comparison is made with prior study dated January 26, 2018. FINDINGS: EKG electrodes are seen. The lungs are clear and expanded. There is no demonstrated pleural abnormality. Normal size heart. Normal mediastinum and favio. Normal visualized pulmonary arteries. There is atherosclerotic tortuosity of the aortic arch and descending thoracic aorta. Normal visualized thoracic spine. Normal visualized ribs, clavicles, and shoulders. There is no demonstrated abnormality of the visualized soft tissue structures of the upper abdomen. RAD/Chest 1 View (Portable) IMPRESSION: No acute abnormality is seen. Electronically Signed: Arturo Lomeli, at 13:56 EDT , Service support ,
--- NOTE | 2018-12-10 12:10 | EKG12_ITS ---
Test Reason : CP Blood Pressure : / mmHG Vent. Rate : 076 BPM Atrial Rate : 076 BPM P-R Int : 146 ms QRS Dur : 072 ms QT Int : 386 ms P-R-T Axes : 018 028 006 degrees QTc Int : 434 ms Normal sinus rhythm Normal ECG Confirmed by RENNY ARGUETA, VENESSA ([id number]), editorial specialist RAFAELA BUSTAMANTE ([id number]) on 12/11/2018 1:26:52 PM Referred By: Aureliano Ramos Confirmed By:NARDA LAWSON MD
[2018-12-10 12:31] LABS: Absolute Lymphocyte Count 2.15 X10^3/uL (0.83-4.51); Absolute Neutrophil Count 5.7 X10^3/uL (2.0-7.7); Basophil# 0.06 X10^3/uL; Basophil% 0.7 % (0-1); Eosinophil# 0.22 X10^3/uL; Eosinophils% 2.5 % (0-5); Hematocrit 39.2 % (37-47); Hemoglobin 13.1 g/dL (12.0-15.0); Lymphocyte # 2.15 X10^3/ul (4.0); Lymphocyte % 24.7 % (19-41); Mean Corp Hgb Conc 33.4 g/dL (32-36); Mean Corpuscular Hgb 32.4 pg (27.0-32.0); Mean Platelet Vol. 9.8 fl (6.2-12.0); Monocyte# 0.56 X10^3/uL; Monocyte% 6.4 % (0-10); NRBC Flagged by Analyzer 0 % (0-5); Neutrophil % 65.4 % (47-70); Platelet Count 340 K/mm3 (150-450); RBC Distribution Width CV 12.2 % (11.6-14.6); RBC Distribution Width SD 43.8 fl (35.1-43.9); Red Blood Count 4.04 M/mm3 (4.2-5.4); White Blood Count 8.7 K/mm3 (4.4-11.0)
[2018-12-10 12:43] LABS: Anion Gap 7 (5-15); BUN 36 mg/dL (7-18); BUN/Creat Ratio 37.2 RATIO (10-20); Calcium,Total 9.4 mg/dL (8.5-10.1); Chloride 108 mmol/L (98-107); Creatinine, Serum 0.97 mg/dL (0.55-1.02); EST Glomerular Filtration Rate 62 mL/min (>60); Est Glom Filt Rate - Afr Amer 75 mL/min (>60); Estimated Creatinine Clearance 46.34 ml/min; Glucose 89 mg/dL (74-106); Potassium 4.2 mmol/L (3.5-5.1); Sodium Level 139 mmol/L (136-145)
--- NOTE | 2018-12-10 14:11 | ED.VISSUMM ---
- ER Visit Summary Date of Service: 12/10/18 Chief Complaint: [Chest pain] History of Present Illness: The patient is a 63 F [presents the emergency department complaint chest pain x3 days intermittently. Patient states that the pain typically comes on when she is active and at work. Patient planes of diaphoresis with it she complains of pain radiating to her back into her shoulder. Patient feels somewhat short of breath with it. Is never had discomfort like this before. She has no real medical history other than she had a cardiac arrest years ago related to a medication allergy to a statin drug. Patient denies recent travel or surgery. She has no history of PE or DVT.] Physical Examination: [HEENT-PERRLA, EOMI. Cranial nerves II through XII grossly intact. TMs clear. Mucous membranes moist. No adenopathy. Cardiovascular-regular rate and rhythm without murmur or ectopy Lungs-clear to auscultation, chest wall stable without crepitus or subcu emphysema Abdomen-normoactive bowel sounds, soft, nontender, no rebound or rigidity, no peritoneal signs. Extremities-intact ?4, normal range of motion, normal pulses, atraumatic] Test Results: [EKG obtained arrival shows sinus rhythm with a ventricular rate of 76 bpm with no acute segment changes. CBC with differential shows a white of 8.7, hemoglobin 13, hematocrit 39, placed 340. Chemistries unremarkable. Troponin is less than 0.15. Chest x-ray showed nothing acute.] Emergency Department Course and Treatment: [She received aspirin in the emergency department she was ordered nitroglycerin which is pending.] Treatment Plan: [Admit for further work-up and evaluation of her chest pain] Disposition: [Admit] Impression: [Chest pain-rule out acute coronary syndrome] This note was generated with [employer] dictation software. It may contain incorrect words, spelling, and punctuation that were not noted in review of the chart prior to signing ED Disposition - Plan for ED Patient: Referrals: Lucita Washburn [Primary Care Provider] -
[2018-12-10] MEDS: Nitroglycerin SL (ED/IMG/CATH) 0.4 MG TABLET SUBLINGUAL (14:12)
[2018-12-10] MEDS: Aspirin 81 MG TAB.CHEW 324 MG PO (14:12)
--- NOTE | 2018-12-10 14:15 | PCM.HP.STD ---
Problem List (1) Chest pain Status: Acute (2) Depression Status: Acute History of Present Illness Date of Admission: 12/10/18 Chief Complaint: Chest pain The patient is a 63 year old F with PMH as below presents with 3 days of intermittent chest pain. She states that the pain typically occurs when she was active at work and would go away with rest. She has episodes of being diaphoretic and the pain can radiate to her back into her left shoulder. When the pain occurs she does have some shortness of breath but otherwise denies any significant dyspnea. She is never had a cardiac work-up in the past, she states that she had a cardiac arrest episode secondary to a statin medication in the past but otherwise states that she was feeling fine prior to this event. Because of the continuance of pain, she went to an urgent care today where the physician pushed on both her chest and her back, and she is noticed more significant pain now after that physical exam. In the ER an EKG was unremarkable, and troponin was normal. Labs were stable. Vital signs were normal. Past Medical History Medical History: Medical History (Last Reviewed 04/02/18 @ 12:38 by Jody Van) Left shoulder pain (Acute) M25.512 ? r kidney nodule ct of abd (Acute) Chest pain (Acute) R07.9 Depression (Acute) F32.9 Anaphylactic reaction (Acute) T78.2XXA Kidney stone N20.0 Left rotator cuff tear M75.102 Osteoarthritis M19.90 varicose veins Allergies Ejrxdvh-Iqe-Wsw Reductase Inhibitor Allergy (Severe, Verified 12/10/18 11:38) Anaphylaxis atorvastatin [From Lipitor] Allergy (Verified 12/10/18 11:38) Anaphylaxis Home Medications: Ambulatory Orders Medication Instructions Recorded Loratadine 10 mg PO DAILY PRN 05/14/17 meloxicam 15 mg tablet 7.5 mg PO BID tab 02/10/18 multivitamin tablet 1 tab PO DAILY 02/10/18 omeprazole magnesium 20 mg 20 mg PO DAILY 04/02/18 tablet,delayed release Duloxetine Hcl [Cymbalta] 30 mg PO DAILY 12/10/18 Surgical History: Surgical History (Last Reviewed 04/02/18 @ 12:38 by Jody Van) H/O: hysterectomy Z90.710 History of hip replacement Z96.649 Hx of cholecystectomy Z90.49 Surgical History: cholecystectomy, hysterectomy, - - Left hip replacement Psychiatric History: Depression Smoking Status: Never smoker Alcohol: None Drugs: None - *Family History Maternal Family History: Family History (Last Reviewed 04/02/18 @ 12:38 by Jody Van) Father Stomach cancer Heart problem Mother Diabetes Brother Diabetes Sister Breast cancer History Items: - Paternal Family History: Family History (Last Reviewed 04/02/18 @ 12:38 by Jody Van) Father Stomach cancer Heart problem Mother Diabetes Brother Diabetes Sister Breast cancer History Items: - Sibling Family History: Family History (Last Reviewed 04/02/18 @ 12:38 by Jody Van) Father Stomach cancer Heart problem Mother Diabetes Brother Diabetes Sister Breast cancer History Items: - Review of Systems Constitutional: Denies: Chills, Fever, Weight Change HEENT: Denies: Head Aches, Sinus Congestion, Sinus Drainage Cardiovascular: Reports: Chest Pain, Chest Pressure. Denies: Palpitations Respiratory: Denies: Cough, Shortness of breath at rest, Sputum production Gastrointestinal: Denies: Abdominal Pain, Nausea, Vomiting Genitourinary: Denies: Dysuria Musculoskeletal: Denies: Joint Pain, Joint Tenderness Skin: Denies: Rash, Wounds Neurological: Denies: Numbness, Tingling, Focal weakness Psychiatric: Denies: Anxiety, Depression Hematologic/ Lymphatic: Denies: Easy Bruising, Easy Bleeding VTE Information - Inpt Only VTE Present on Admission: No - Physical Exam General: Alert, Oriented x3, Cooperative, No apparent distress HEENT: Atraumatic, PERRLA, EOMI, Normocephalic Oral: Moist Mucosa Neck: Supple, No JVD Lungs: Clear to auscultation, Normal air movement, No rhonchi, No wheeze, No rales Cardiovascular: Regular rate, Regular Rhythm, Normal S1, Normal S2, No murmurs, - - There is pain with palpation of the left side of her chest, and this is the worst pain that she was feeling today that brought her into the hospital, but it is not the same pain that she was having for the last 3 days. Abdomen: Soft, Non Tender, Non-Distended, No Hepato-splenomegaly Extremities: No edema, Capillary Refill Less than 3 Seconds Skin: No rashes, No breakdown Neurological: Neuro grossly intact, Sensory exam intact to light touch and pain Psych/Mental Status: Normal Affect, Appropriate Vital Signs Temp Pulse Resp BP Pulse Ox 97.7 F L 76 19 H 119/79 100 12/10/18 11:38 12/10/18 14:12 12/10/18 13:09 12/10/18 14:12 12/10/18 13:09 Oxygen Delivery Method Room Air Weight: 209 lb 3.499 oz Body Mass Index (BMI) 38.2 Laboratory Tests Past 24 Hrs 12/10/18 12/10/18 12:00 12:00 WBC 8.7 RBC 4.04 L Hgb 13.1 Hct 39.2 MCV 97.0 MCH 32.4 H MCHC 33.4 RDW Std Deviation 43.8 RDW Coeff of Juan Alberto 12.2 Plt Count 340 MPV 9.8 Immature Gran % (Auto) 0.300 Neut % (Auto) 65.4 Lymph % (Auto) 24.7 [place] % (Auto) 6.4 Eos % (Auto) 2.5 Baso % (Auto) 0.7 Absolute Neuts (auto) 5.7 Absolute Lymphs (auto) 2.15 Nucleated RBC % 0 Sodium 139 Potassium 4.2 Chloride 108 H Carbon Dioxide 24.0 Anion Gap 7 BUN 36 H Creatinine 0.97 Estim Creat Clear Calc 46.34 Est GFR (MDRD) Af Amer 75 Est GFR (MDRD) Non-Af 62 BUN/Creatinine Ratio 37.2 H Glucose 89 Calcium 9.4 Troponin I < 0.015 Assessment/Plan All Active Problems (Last Reviewed 04/02/18 @ 12:38 by Jody Van) Cough (Acute) Left shoulder pain (Acute) ? r kidney nodule ct of abd (Acute) Chest pain (Acute) Depression (Acute) Anaphylactic reaction (Acute) 1. Chest pain -A component of her chest pain secondary to chest wall pain given the fact that she had a reproduction of the with palpation today on exam. This is likely from the physical exam she had at the urgent care earlier today. -Troponin was normal, will trend. Chest x-ray was also unremarkable -Proceed with exercise stress in the morning -Nitro for pain relief as needed -Loading dose of aspirin was given in the ER -EKG is unremarkable -Cardiac calorie controlled diet 2. Anxiety/depression -Stable -Continue with Cymbalta 3. GERD -Stable -Continue with PPI DVT: Lovenox Code Visit OBSV E&M: 24284 Initial observation care L2
--- NOTE | 2018-12-10 15:31 | EKG12_ITS ---
Test Reason : CP Blood Pressure : / mmHG Vent. Rate : 071 BPM Atrial Rate : 071 BPM P-R Int : 152 ms QRS Dur : 082 ms QT Int : 404 ms P-R-T Axes : 015 031 009 degrees QTc Int : 439 ms Normal sinus rhythm Normal ECG Confirmed by YULISA ARGUETA, ANDRES ([id number]), greeting card editor RAFAELA BUSTAMANTE ([id number]) on 12/16/2018 11:03:54 AM Referred By: Aureliano Ramos Confirmed By:ANDRES MÁRQUEZ MD
--- NOTE | 2018-12-10 16:33 | CASEMGMT ---
RN CM Assessment Introduced role of RN CM to patient, patient sister Nancy and friend Alisha at bedside.? Patient gives CM permission to discuss assessment in sister and friend's presence. Patient is alert, oriented and able?to participate in RN CM Assessment. ?Care providers, pharmacy, and demographics verified. Presentation: Intermittent CP x3 days. H/o Cardiac Arrest years ago d/t Medication allergy to Statin drug. Admit Dx: CP Re-Admit: No Barriers/Issues: None PCP: Lucita Luis, Natalie Horner NP Specialists: None Preferred Pharmacy: [facility] Insurance: [facility] Community Plan VANNA Rx Benefit:?Yes LNOK: Sister Nancy Espinoza LW/HPOA: None, Would like information. Living Arrangements:?Lives alone in ground level apartment, 4 steps w/rails to enter ADL?s: Independent with ambulation and ADLs Transportation: Patient drives, drove self to hospital and plans to drive upon DC DME: None HHC: Past in April 2018 but cannot recall Agency SNF: None Goal: Home and back to work. Does not think will have any needs. Denies questions, concerns, or issues at this time with DC planning. Aware CM remains available for any emerging needs. DC PLAN: Home with no anticipated needs identified at this time. KAIT Kumar
[2018-12-10] MEDS: Acetaminophen 325 MG Tablet 650 MG PO (22:14)
[2018-12-11 03:00] VITALS: BP 102/39; PULSE 66; PULSE 70; RESP 18; TEMP 36.8; O2SAT 94
--- NOTE | 2018-12-11 04:00 | EKG12_ITS ---
Test Reason : AM EKG Blood Pressure : / mmHG Vent. Rate : 070 BPM Atrial Rate : 070 BPM P-R Int : 142 ms QRS Dur : 084 ms QT Int : 410 ms P-R-T Axes : 048 050 026 degrees QTc Int : 442 ms Normal sinus rhythm Normal ECG Confirmed by YULISA ARGUETA, ANDRES ([id number]), communications editor RAFAELA BUSTAMANTE ([id number]) on 12/16/2018 11:02:52 AM Referred By: Aureliano Ramos Confirmed By:ANDRES MÁRQUEZ MD
[2018-12-11] MEDS: 0.9% NaCl Peripheral Flush Adult/Peds IV (04:26)
[2018-12-11 04:40] LABS: Absolute Lymphocyte Count 2.41 X10^3/uL (0.83-4.51); Basophil# 0.06 X10^3/uL; Basophil% 0.8 % (0-1); Eosinophil# 0.42 X10^3/uL; Eosinophils% 5.6 % (0-5); Hematocrit 36.7 % (37-47); Hemoglobin 12.3 g/dL (12.0-15.0); Lymphocyte # 2.41 X10^3/ul (4.0); Lymphocyte % 32.4 % (19-41); Mean Corp Hgb Conc 33.5 g/dL (32-36); Mean Corpuscular Hgb 32.3 pg (27.0-32.0); Mean Corpuscular Volume 96.3 fL (81-99); Mean Platelet Vol. 9.7 fl (6.2-12.0); Monocyte# 0.55 X10^3/uL; Monocyte% 7.4 % (0-10); NRBC Flagged by Analyzer 0 % (0-5); Neutrophil # 3.97 X10^3/uL (2.7-7.7); Neutrophil % 53.4 % (47-70); Platelet Count 294 K/mm3 (150-450); RBC Distribution Width CV 12.3 % (11.6-14.6); RBC Distribution Width SD 42.8 fl (35.1-43.9); Red Blood Count 3.81 M/mm3 (4.2-5.4); White Blood Count 7.4 K/mm3 (4.4-11.0)
[2018-12-11 04:46] LABS: Prothrombin Time (Protime)PT. 13.3 SECONDS (11.7-14.9)
[2018-12-11 04:47] LABS: Partial Thromboplast Time 33.1 Seconds (24.1-36.2)
[2018-12-11 04:59] LABS: Anion Gap 8 (5-15); BUN 31 mg/dL (7-18); BUN/Creat Ratio 41.2 RATIO (10-20); Calcium,Total 8.8 mg/dL (8.5-10.1); Chloride 112 mmol/L (98-107); Creatinine, Serum 0.75 mg/dL (0.55-1.02); EST Glomerular Filtration Rate 82 mL/min (>60); Est Glom Filt Rate - Afr Amer 100 mL/min (>60); Estimated Creatinine Clearance 59.93 ml/min; Glucose 92 mg/dL (74-106); Potassium 4.2 mmol/L (3.5-5.1); Sodium Level 138 mmol/L (136-145)
[2018-12-11 05:57] VITALS: BP 138/65; PULSE 74; RESP 18; TEMP 36.3; O2SAT 97
[2018-12-11 08:33] VITALS: PULSE 74
--- NOTE | 2018-12-11 10:08 | STRESSREP_ITS ---
Stress Test Report Exercise myocardial perfusion stress test. 63-year-old lady with a history of chest pain. Stress protocol: Resting EKG demonstrates normal sinus rhythm with a rate of 65 bpm normal intervals are noted resting blood pressures 118/80 mmHg. The patient exercised according to regular Jaime protocol for total duration of 5 minutes and 20 se conds attaining 148 bpm which was 94% of maximum predicted heart rate. Patient completed 2 minutes into stage II of the Jaime protocol. The maximum heart rate was 148 bpm. The patient maintained sinus rhythm throughout the recording at rest there were no ST or T wave changes noted suggest ischemia peak exercise upsloping ST changes only were noted with no meet the criteria for ischemia. No clinical angina was noted. Myocardial perfusion protocol. 14.1 mCi of technetium 99m sestamibi was injected at rest. She and exercised for 5 minutes and 20 seconds at the peak exercise 44.3 mCi of technetium 99m sestamibi was injected stress images were obtained stress and rest images are reconstructed and compared in the short axis vertical and horizontal long axis. Gated images were also obtained. Resting blood pressure was 118/80 mmHg peak blood pressure was 192/60 mmHg. Perfusion SPECT analysis: Review of the stress images demonstrate normal uptake of tracer noted in all areas of the myocardium. The resting images similarly demonstrate normal uptake of tracer noted in all areas of the myocardium. No areas of reversibility are noted suggest ischemia no previous infarct is noted. Gated SPECT analysis: The gated ejection fraction is noted to be 80%. Conclusion: Normal exercise myocardial perfusion stress test at a moderate workload. Preserved ejection fraction.
--- NOTE | 2018-12-11 10:23 | DCINST_ITS ---
You will use the following diet at home:: Regular Your food should be the consistency of: Regular Discharge Activity: Return to Normal Activity Weight Bearing Status: Full weight bearing Call your doctor if you observe: Fever of 101 or Higher, Shortness of breath, Dizziness, Fainting spells, Chest pain, Increased palpitations (irregular heartbeat), Uncontrolled pain Allergies/Adverse Reactions: Allergies Boxbhyy-Snf-Zjg Reductase Inhibitor Allergy (Severe, Verified 12/10/18 11:38) Anaphylaxis atorvastatin [From Lipitor] Allergy (Verified 12/10/18 11:38) Anaphylaxis Medications to take at Discharge Loratadine 10 mg PO DAILY PRN 05/14/17 meloxicam 15 mg tablet 7.5 mg PO BID tab 02/10/18 multivitamin tablet 1 tab PO DAILY 02/10/18 omeprazole magnesium 20 mg tablet,delayed release 20 mg PO DAILY 04/02/18 Duloxetine Hcl [Cymbalta] 30 mg PO DAILY 12/10/18 Primary Care Physician: Lucita Washubrn [Primary Care Provider] - Please follow up with your Primary Care Physician in: 2 weeks. Test Results: Test results from this visit will be discussed in further detail at your follow- up appointment, if applicable.
--- NOTE | 2018-12-11 10:32 | CASEMGMT ---
Social Work Spoke with patient about requesting to complete Advanced Directives. Pt states she is unsure who to appoint for POA and would like to think about. Provided pt with social worker psychiatric rack card to follow up to complete paperwork when decision is made. Pt appreciative. Jennifer Persaud, SENIOR DOT NET DEVELOPER VISUAL BASIC DEVELOPER
--- NOTE | 2018-12-11 10:44 | PHA.DC.MR ---
Pharmacy Service has performed discharge medication reconciliation for this patient. Patient does not have any new medications. Home Medications Loratadine 10 mg PO DAILY PRN 05/14/17 meloxicam 15 mg tablet 7.5 mg PO BID tab 02/10/18 multivitamin tablet 1 tab PO DAILY 02/10/18 omeprazole magnesium 20 mg tablet,delayed release 20 mg PO DAILY 04/02/18 Duloxetine Hcl [Cymbalta] 30 mg PO DAILY 12/10/18 The patient's discharge medication list was reviewed for discrepancies and discrepancies were resolved.
--- NOTE | 2018-12-11 10:54 | DS.PCM_ITS ---
Discharge Date and Diagnosis Date of Admission: 12/10/18 Date of Discharge: 12/11/18 - Primary Discharge Diagnosis Chest pain, ACS ruled out, likely due to musculoskeletal pain. Hospital Course and Treatment Imaging Results: 12/11/18 05:55 Nuclear Stress Test - Treadmil [NM] AM (NON MEDS) Clinical Impression(s) from Imaging Studies Chest X-Ray 12/10/18 12:10 IMPRESSION: No acute abnormality is seen. Electronically Signed: Arturo Lomeli, at 13:56 EDT , Service support , . Exercise myocardial perfusion stress test. Conclusion: Normal exercise myocardial perfusion stress test at a moderate workload. Preserved ejection fraction. 12/11/18 1010 <Electronically signed by Chino Wing> Date _ Chino Ferrara MD CC: Felix Quezada; Aureliano Ramos MD; LUCITA RAMOS [facility] ~ Date Dictated: 12/11/18 1008 Date Transcribed: 12/11/18 100 [employer]airer Engine Production: [place] Signed Operations: None Procedures: EKG, Stress test Summary of Care Provided: Patient seen and examined on day of discharge and appeared to be stable to be discharged home. She denies any more chest pain. Denied shortness of breath, palpitation, dizziness or lightheadedness. Her vital signs are stable. The patient is a 63 year old F admitted for chest pain for evaluation. Her presentation was atypical for ACS. EKG revealed no acute ischemic changes. Her troponin was negative x3. Chest x-ray showed no acute findings. Routine blood work was unremarkable. Her vital signs were stable. She underwent nuclear stress test that showed no evidence of stress-induced myocardial ischemia and her ejection fraction was normal. ACS ruled out. Her symptoms are attributed to musculoskeletal pain. Patient discharged home in a stable medical condition, started back on her previous medications without any changes, recommended follow-up with PCP in 2 weeks. - Physical Exam General: Alert, Oriented x3, Cooperative, No apparent distress HEENT: Atraumatic, PERRLA, EOMI, Normocephalic Oral: Moist Mucosa, No Gingival or Mucosal Lesions/ Ulcerations Neck: Supple, No JVD, Negative Carotid Bruits, Trachea Midline, Thyroid Normal Size and Texture Lungs: Clear to auscultation, Normal air movement, No rhonchi, No wheeze, No rales Cardiovascular: Regular rate, Regular Rhythm, Normal S1, Normal S2 Abdomen: Bowel Sounds Present, Soft, Non Tender, Non-Distended, No Hepato- splenomegaly Extremities: No clubbing, No cyanosis, No edema Skin: No rashes, No breakdown Lymphatic: No Cervical, Supraclavicular, or Inguinal Adenopathy Neurological: Cranial nerves II-XII grossly intact, Motor Exam 5/5 strength throughout Psych/Mental Status: Normal Affect, Appropriate Vital Signs Temp Pulse Resp BP Pulse Ox 97.3 F L 74 18 138/65 H 97 12/11/18 05:57 12/11/18 08:33 12/11/18 05:57 12/11/18 05:57 12/11/18 05:57 Oxygen Delivery Method Room Air Weight: 209 lb 10.554 oz Body Mass Index (BMI) 38.3 Intake and Output for Last 24 Hours 12/09/18 12/10/18 12/11/18 23:59 23:59 23:59 Intake Total 200 / 320 120 / 120 Balance 200 / 320 120 / 120 Laboratory Tests Past 24 Hrs 12/10/18 12/10/18 12/10/18 12:00 12:00 15:33 WBC 8.7 RBC 4.04 L Hgb 13.1 Hct 39.2 MCV 97.0 MCH 32.4 H MCHC 33.4 RDW Std Deviation 43.8 RDW Coeff of Juan Alberto 12.2 Plt Count 340 MPV 9.8 Immature Gran % (Auto) 0.300 Neut % (Auto) 65.4 Lymph % (Auto) 24.7 [place] % (Auto) 6.4 Eos % (Auto) 2.5 Baso % (Auto) 0.7 Absolute Neuts (auto) 5.7 Absolute Lymphs (auto) 2.15 Nucleated RBC % 0 PT INR APTT Sodium 139 Potassium 4.2 Chloride 108 H Carbon Dioxide 24.0 Anion Gap 7 BUN 36 H Creatinine 0.97 Estim Creat Clear Calc 46.34 Est GFR (MDRD) Af Amer 75 Est GFR (MDRD) Non-Af 62 BUN/Creatinine Ratio 37.2 H Glucose 89 Calcium 9.4 Troponin I < 0.015 < 0.015 12/10/18 12/11/18 12/11/18 18:37 04:30 04:30 WBC 7.4 RBC 3.81 L Hgb 12.3 Hct 36.7 L MCV 96.3 MCH 32.3 H MCHC 33.5 RDW Std Deviation 42.8 RDW Coeff of Juan Alberto 12.3 Plt Count 294 MPV 9.7 Immature Gran % (Auto) 0.400 Neut % (Auto) 53.4 Lymph % (Auto) 32.4 [place] % (Auto) 7.4 Eos % (Auto) 5.6 H Baso % (Auto) 0.8 Absolute Neuts (auto) 4.0 Absolute Lymphs (auto) 2.41 Nucleated RBC % 0 PT 13.3 INR 1.0 APTT 33.1 Sodium Potassium Chloride Carbon Dioxide Anion Gap BUN Creatinine Estim Creat Clear Calc Est GFR (MDRD) Af Amer Est GFR (MDRD) Non-Af BUN/Creatinine Ratio Glucose Calcium Troponin I < 0.015 12/11/18 04:30 WBC RBC Hgb Hct MCV MCH MCHC RDW Std Deviation RDW Coeff of Juan Alberto Plt Count MPV Immature Gran % (Auto) Neut % (Auto) Lymph % (Auto) [place] % (Auto) Eos % (Auto) Baso % (Auto) Absolute Neuts (auto) Absolute Lymphs (auto) Nucleated RBC % PT INR APTT Sodium 138 Potassium 4.2 Chloride 112 H Carbon Dioxide 18.0 L Anion Gap 8 BUN 31 H Creatinine 0.75 Estim Creat Clear Calc 59.93 Est GFR (MDRD) Af Amer 100 Est GFR (MDRD) Non-Af 82 BUN/Creatinine Ratio 41.2 H Glucose 92 Calcium 8.8 Troponin I Discharge Activity: Return to Normal Activity Weight Bearing Status: Full weight bearing Call your doctor if you observe: Fever of 101 or Higher, Shortness of breath, Dizziness, Fainting spells, Chest pain, Increased palpitations (irregular heartbeat), Uncontrolled pain Home Medications: Medications to take at Discharge Loratadine 10 mg PO DAILY PRN 05/14/17 meloxicam 15 mg tablet 7.5 mg PO BID tab 11/20/18 multivitamin tablet 1 tab PO DAILY 02/10/18 omeprazole magnesium 20 mg tablet,delayed release 20 mg PO DAILY 04/02/18 Duloxetine Hcl [Cymbalta] 30 mg PO DAILY 12/10/18 Primary Care Physician: Lucita Washburn [Primary Care Provider] - Please follow up with your Primary Care Physician in: 2 weeks. Disposition: Home Minutes spent on discharge:: 24 Patient Condition:: Stable Medical Necessity - Tobacco Use Smoking Status: Never smoker Tobacco Use: Secondhand Meaningful Use Info Meaningful Use Diagnoses (Choose all that apply): None applicable Code Visit OBSV E&M: 49888 Observation care discharge
[2018-12-11 11:01] VITALS: PULSE 74
[2018-12-11 11:13] VITALS: BP 136/76; PULSE 72; RESP 16; O2SAT 94
== END 2018-12-11 10:24 | disposition home or self-care (01) ==
LOC: ED 13:46 → PCU 14:30
PROVIDERS: Admitting Provider Family Medicine; Emergency Provider Emergency Medicine; Referring Provider Family Medicine; Visit Provider Hospitalist
DX: R07.89 Other chest pain (principal); R06.02 Shortness of breath; F32.9 Major depressive disorder, single episode, unspecified; M19.90 Unspecified osteoarthritis, unspecified site; Z79.899 Other long term (current) drug therapy; Z86.74 Personal history of sudden cardiac arrest; K21.9 Gastro-esophageal reflux disease without esophagitis; F41.9 Anxiety disorder, unspecified
CPT/HCPCS: 36415; 71045; 78452; 80048; 84484; 85025; 85610; 85730; 93005; 93017; 99218; 99285; A9500; A4216; G0378

== ENCOUNTER 2019-10-21 09:13 | Emergency (ER) | payer MEDICARE, SELFPAY ==
[2018-12-10 15:30] VITALS: BMI 38.3
[2019-10-21] VITALS (9 sets, daily range): BP systolic 140–156; BP diastolic 68–83; PULSE 75–97; RESP 15–84; TEMP 36.4–37; O2SAT 96–98; BMI 39.9
--- NOTE | 2019-10-21 09:36 | RAD_ITS ---
STUDY: X-RAY CHEST REASON FOR EXAM: Female, 64 years old. COUGH, SOB X 2 DAYS TECHNIQUE: Single AP portable view of the chest. COMPARISON: Comparison is made with prior examination dated 12/10/2018. FINDINGS: EKG electrodes are seen. Stable mild elevation of the right hemidiaphragm. Scattered calcified granulomas. There is evidence of a 4.1 cm x 3 cm nodular density in the upper medial aspect of the right lung apex. There is evidence of a right azygos lobe. There is no demonstrated pleural abnormality. Normal size heart. Normal mediastinum and favio. Normal visualized pulmonary arteries. There is atherosclerotic tortuosity of the aortic arch and descending thoracic aorta. Normal visualized thoracic spine. Normal visualized ribs, clavicles, and shoulders. There is no demonstrated abnormality of the visualized soft tissue structures of the upper abdomen. RAD/Chest 1 View (Portable) IMPRESSION: 4.1 cm x 3 cm soft tissue density in the medial right lung apex. Correlation with a CT scan is recommended. Electronically Signed: Arturo Lomeli, at 10:38 EDT , Service support ,
--- NOTE | 2019-10-21 09:36 | EKG12_ITS ---
Test Reason : CP Blood Pressure : / mmHG Vent. Rate : 084 BPM Atrial Rate : 084 BPM P-R Int : 136 ms QRS Dur : 070 ms QT Int : 352 ms P-R-T Axes : 023 023 005 degrees QTc Int : 415 ms Normal sinus rhythm Normal ECG Confirmed by DULCE ARGUETA, RUTH ([id number]), purchase request editor RAFAELA BUSTAMANTE ([id number]) on 10/26/2019 8:52:41 AM Referred By: ALLAN Confirmed By:RUTH CARDONA MD
--- NOTE | 2019-10-21 09:40 | ED.DCSUM_ITS ---
History of Present Illness Chief Complaint: Shortness of Breath Informant: Patient Narrative: Patient is a 64-year-old female who presents to the emergency department for cough and chest wall pain. Her cough started yesterday. This has been nonproductive. No fevers or chills. No known sick contacts. He states that when she coughs she started to develop sternal chest pain and rib pain that wraps around to the back. It does hurt whenever she pushes on the chest wall. She has not tried anything for this. She has had some mild shortness of breath. She denies a smoking history. No abdominal pain or nausea/vomiting. No change in bowel habits. No swelling in her legs or pain in her cast. No history of DVT/PE. Patient states she came in to get checked out as she had a cardiac arrest 2 years ago due to an anaphylactic reaction to Lipitor. No associated sore throat or ear pain. No rashes. No headache or stiff neck. Past Medical History - Allergies and Home Meds Allergies/Adverse Reactions: Allergies Etxnqzp-Ssi-Bpe Reductase Inhibitor Allergy (Severe, Verified 10/21/19 09:15) Anaphylaxis atorvastatin [From Lipitor] Allergy (Verified 10/21/19 09:15) Anaphylaxis Primary Care Physician: [facility] Toby,Lucita Falk [NON-STAFF] - Past Medical History: - - Arthritis, hyperlipidemia Surgical History: cholecystectomy, hysterectomy, - - Left hip replacement Smoking Status: Never smoker Alcohol: None Drugs: None - Family History Maternal Family History: Family History (Last Reviewed 04/02/18 @ 12:38 by Jody Van) Father Stomach cancer Heart problem Mother Diabetes Brother Diabetes Sister Breast cancer Family History: Reports: - Paternal Family History: Family History (Last Reviewed 04/02/18 @ 12:38 by Jody Van) Father Stomach cancer Heart problem Mother Diabetes Brother Diabetes Sister Breast cancer Family History: Reports: - Sibling Family History: Family History (Last Reviewed 04/02/18 @ 12:38 by Jody Van) Father Stomach cancer Heart problem Mother Diabetes Brother Diabetes Sister Breast cancer Family History: Reports: - Review of Systems All systems negative except as indicated General: Denies: Chills, Fever, Sweats Eyes: Denies: Visual changes - bilaterally, Diplopia ENT: Denies: Rhinorrhea, Sore throat Cardiovascular: Denies: Chest pain, Palpitations Respiratory: Reports: Dyspnea. Denies: Cough, Sputum, Dyspnea on exertion Gastrointestinal: Denies: Abdominal pain, Nausea, Vomiting, Diarrhea Genitourinary: Denies: Dysuria, Hematuria, Frequency Musculoskeletal: Denies: Back pain, Extremity Pain Skin: Denies: Rash, Wounds Neurological: Denies: Headache, Weakness, Numbness Physical Exam Vital Signs/Narrative: Vital Signs Temp Pulse Resp BP Pulse Ox 10/21/19 09:13 97.6 F L 97 20 H 156/76 H 97 Inital Vital Signs reviewed: Yes General: Well nourished, Well developed, No Acute Distress Head: Normocephalic, Atraumatic Eyes: Perrl, EOMI ENT: Moist mucous membranes, No rhinorrhea Neck: Supple, Nontender Cardiovascular: Regular rate, Regular rhythm, No murmurs, - - 2+ radial pulse bilateral Respiratory: No distress, CTA bilaterally, Chest tenderness - Pain is reproducible with palpation Abdomen: Soft, Nontender, Nondistended, Normal bowel sounds Back: Nontender, Normal Inspection Extremities: Nontender, No edema. Negative for: Edema, Calf Tenderness Skin: Normal color, No rash Neurological: Alert, Oriented x3, Cranial nerves II-XII grossly intact, Normal Strength, Normal Sensation Psychological: Normal affect, Normal Mood Diagnostic/Tx/Re-eval - EKG Initial EKG Interpretation: - - Rate of 84 bpm and normal sinus rhythm. Normal intervals. Normal axis. No ST elevations or depressions appreciated. No T wave normalities. Prior EKG for comparison was performed on December 14, 2018 which is similar in appearance. - Medical Decision Making Patient presents to the emergency department for cough. No fevers or sputum production. She started yesterday. Upon arrival to the emerge department she is not hypoxic or tachypneic. Vital signs within normal limits. Physical exam is benign. Patient was just concerned that she was having some chest wall pain developed with her cough. EKG not show any signs of ischemia or arrhythmia. She does want tested for coronavirus. Will check basic lab work along with chest x- ray. Patient's chest pain is reproducible. This does seem like costochondritis given the reproducibility and cough. X-ray did not show any acute cardiopulmonary abnormality but there was suspicion for mass in the right upper lobe. We did perform a CT scan. This was significant for an azygos lobe. Otherwise no evidence of PE or pulmonary abnormality. Her COVID test did come back positive. Will recommend symptomatic treatment at home as she has not been hypoxic here in the ED. Will recommend th at she self isolates for the next 2 weeks. If she develops significant shortness of breath or chest pain she can return to the emergency department at any time. Otherwise she will need to follow-up with her PCP after the isolation. She is given a work excuse for this timeframe. This time will discharge home. She understands and is agreeable this plan. ED Disposition - Plan for ED Patient: Disposition: Home or Assisted Living Diagnosis: COVID-19, Cough, Chest wall pain Referrals: [facility] Toby,Lucita Falk [NON-STAFF] - Additional Instructions: Please self isolate for the next 2 weeks. If you develop any worsening shortness of breath or chest pain you can return to the emergency department.
[2019-10-21 09:55] LABS: Absolute Lymphocyte Count 0.73 X10^3/uL (0.83-4.51); Absolute Neutrophil Count 4.3 X10^3/uL (2.0-7.7); Basophil# 0.07 X10^3/uL; Basophil% 1.2 % (0-1); Eosinophils% 3.4 % (0-5); Hematocrit 37.6 % (37-47); Hemoglobin 12.6 g/dL (12.0-15.0); Lymphocyte # 0.73 X10^3/ul (4.0); Lymphocyte % 12.5 % (19-41); Mean Corp Hgb Conc 33.5 g/dL (32-36); Mean Corpuscular Hgb 32.4 pg (27.0-32.0); Mean Corpuscular Volume 96.7 fL (81-99); Mean Platelet Vol. 9.4 fl (6.2-12.0); Monocyte# 0.58 X10^3/uL; Monocyte% 9.9 % (0-10); NRBC Flagged by Analyzer 0 % (0-5); Neutrophil # 4.26 X10^3/uL (2.7-7.7); Neutrophil % 72.7 % (47-70); Platelet Count 303 K/mm3 (150-450); RBC Distribution Width CV 12.1 % (11.6-14.6); RBC Distribution Width SD 42.7 fl (35.1-43.9); Red Blood Count 3.89 M/mm3 (4.2-5.4); White Blood Count 5.9 K/mm3 (4.4-11.0)
[2019-10-21 10:07] LABS: Anion Gap 4 (5-15); BUN 23 mg/dL (7-18); BUN/Creat Ratio 30.2 RATIO (10-20); Calcium,Total 8.9 mg/dL (8.5-10.1); Chloride 111 mmol/L (98-107); Creatinine, Serum 0.76 mg/dL (0.55-1.02); EST Glomerular Filtration Rate 81 mL/min (>60); Est Glom Filt Rate - Afr Amer 98 mL/min (>60); Estimated Creatinine Clearance 58.37 ml/min; Glucose 84 mg/dL (74-106); Potassium 3.9 mmol/L (3.5-5.1); Sodium Level 142 mmol/L (136-145)
--- NOTE | 2019-10-21 11:02 | CT_ITS ---
STUDY: CTA CHEST REASON FOR EXAM: Female, 64 years old. COUGH, SOB X DAY, RUL MASS SEEN ON CXR RADIATION DOSAGE (If Supplied By Facility): CTDIvol = ( 14.89 ) mGy, DLP = ( 514.41 ) mGycm TECHNIQUE: The examination was performed with the intravenous administration of IV 100mL Isovue-370. Post-processing of the angiographic images was performed, with multiplanar reformation and 3D reconstruction. Individualized dose optimization techniques were used for this CT. COMPARISON: Comparison is made with prior chest or graft done earlier in the day and prior CT scan of the thorax dated 01/06/2015. FINDINGS: Small benign appearing bilateral axillary lymph nodes. Normal enhancement of the main pulmonary artery and right and left pulmonary arteries. Normal enhancement of the bilateral peripheral pulmonary arteries. There is no demonstrated pulmonary embolism. Normal thoracic aorta and visualized great vessels. There is no demonstrated aortic dissection. Normal heart and pericardium. Normal mediastinum. Normal hilar regions. Normal visualized trachea and bronchi. The lungs are well expanded. Azygos lobe. No masses seen. The findings seen on the chest radiograph most likely represents overlapping of the vascular structures. Calcified granulomas in the right lower lobe. Normal pleura. Normal chest wall structures. There are degenerative changes of thoracic spine. The patient is status post cholecystectomy. CT/CTA Chest W/WO Contrast IMPRESSION: No acute abnormality is seen. Electronically Signed: Arturo Lomeli, at 12:37 EDT , Service support ,
--- NOTE | 2019-10-21 13:04 | ED.RN ---
PER LAB. COVID 19 POSITIVE. TRACY BRO RECIEVED THE CALL
[2019-10-21] MEDS: Ketorolac 15 MG/ML Vial IV (13:26)
== END 2019-10-21 13:57 | disposition home or self-care (01) ==
PROVIDERS: Emergency Provider Emergency Medicine; PCP Family Medicine
DX: U07.1 COVID-19 (principal); R05 Cough; R07.89 Other chest pain; E78.5 Hyperlipidemia, unspecified; M19.90 Unspecified osteoarthritis, unspecified site; Z80.3 Family history of malignant neoplasm of breast; Z86.74 Personal history of sudden cardiac arrest; Z88.8 Allergy status to other drugs, medicaments and biological substances; Z90.49 Acquired absence of other specified parts of digestive tract; Z90.710 Acquired absence of both cervix and uterus; Z96.642 Presence of left artificial hip joint
CPT/HCPCS: 71045; 71275; 80048; 84484; 85025; 87635; 93005; 94799; 96374; 96375; 99285; Q9967; A4216; U0003

== ENCOUNTER → 2019-11-05 11:33 | Outpatient (CLI) | payer MEDICARE, SELFPAY ==
[2019-10-21 09:13] VITALS: BMI 39.9
[2019-11-05 15:16] LABS: Absolute Lymphocyte Count 1.83 X10^3/uL (0.83-4.51); Absolute Neutrophil Count 5.1 X10^3/uL (2.0-7.7); Basophil# 0.05 X10^3/uL; Basophil% 0.6 % (0-1); Eosinophil# 0.29 X10^3/uL; Eosinophils% 3.7 % (0-5); Hematocrit 38.9 % (37-47); Hemoglobin 12.7 g/dL (12.0-15.0); Lymphocyte # 1.83 X10^3/ul (4.0); Lymphocyte % 23.2 % (19-41); Mean Corp Hgb Conc 32.6 g/dL (32-36); Mean Corpuscular Hgb 32.3 pg (27.0-32.0); Mean Platelet Vol. 10.1 fl (6.2-12.0); Monocyte# 0.56 X10^3/uL; Monocyte% 7.1 % (0-10); NRBC Flagged by Analyzer 0 % (0-5); Neutrophil # 5.09 X10^3/uL (2.7-7.7); Neutrophil % 64.4 % (47-70); Platelet Count 443 K/mm3 (150-450); RBC Distribution Width CV 11.7 % (11.6-14.6); RBC Distribution Width SD 42.5 fl (35.1-43.9); Red Blood Count 3.93 M/mm3 (4.2-5.4); White Blood Count 7.9 K/mm3 (4.4-11.0)
[2019-11-05 15:47] LABS: ALB/GLOB Ratio 0.7 RATIO (0.9-2.4); AST(SGOT) 13 U/L (15-37); Alanine Aminotransfer ALT/SGPT 21 U/L (13-56); Albumin, Serum 3.2 g/dL (3.2-5.0); Alkaline Phosphatase 105 U/L (45-117); Anion Gap 8 (5-15); BUN 21 mg/dL (7-18); BUN/Creat Ratio 28.4 RATIO (10-20); Calcium,Total 8.9 mg/dL (8.5-10.1); Chloride 109 mmol/L (98-107); Creatinine, Serum 0.74 mg/dL (0.55-1.02); EST Glomerular Filtration Rate 84 mL/min (>60); Est Glom Filt Rate - Afr Amer 101 mL/min (>60); Globulin 4.3 g/dL (2.2-4.2); Glucose 93 mg/dL (74-106); Potassium 4.4 mmol/L (3.5-5.1); Protein, Total 7.5 g/dL (6.4-8.2); Sodium Level 143 mmol/L (136-145); Thyroid Stim Hormone (TSH) 2.81 uIU/mL (0.358-3.74)
== END ==
PROVIDERS: PCP Family Medicine; Referring Provider Family Medicine; Visit Provider Family Medicine
DX: R61 Generalized hyperhidrosis (principal)
CPT/HCPCS: 36415; 80053; 84443; 85025

== ENCOUNTER → 2019-11-12 08:29 | Outpatient (CLI) | payer MEDICARE, SELFPAY ==
[2019-10-21 09:13] VITALS: BMI 39.9
--- NOTE | 2019-11-12 08:33 | RAD_ITS ---
STUDY: X-RAY - RIGHT KNEE REASON FOR EXAM: Female, 64 years old. Knee pain. TECHNIQUE: 4 view(s) of the knee. COMPARISON: None. FINDINGS: Normal visualized distal femur. Normal visualized proximal tibia and fibula. Normal proximal tibiofibular articulation. There is no demonstrated fracture. Normal medial femorotibial compartment. Normal lateral femorotibial compartment. There is minimal degenerative arthrosis of the patellofemoral articulation. May be minimal effusion in the suprapatellar joint space. The soft tissue structures are unremarkable. RAD/Knee 4 or More Views IMPRESSION: Minimal degenerative arthrosis. Electronically Signed: Jey Landers MD at 9:29 EDT Tel , Service support ,
== END ==
PROVIDERS: PCP Family Medicine; Visit Provider Family Medicine
DX: M25.561 Pain in right knee (principal)
CPT/HCPCS: 73564

== ENCOUNTER 2019-11-26 12:33 | Observation (INO) | payer MEDICARE, MEDICAID, SELFPAY ==
[2019-10-21 09:13] VITALS: BMI 39.9
[2019-11-26] VITALS (10 sets, daily range): BP systolic 123–159; BP diastolic 68–95; PULSE 67–86; RESP 14–20; TEMP 36.4–36.8; O2SAT 94–97; BMI 42.2; BMI 42.1
--- NOTE | 2019-11-26 12:51 | EKG12_ITS ---
Test Reason : SOB Blood Pressure : / mmHG Vent. Rate : 084 BPM Atrial Rate : 084 BPM P-R Int : 132 ms QRS Dur : 072 ms QT Int : 372 ms P-R-T Axes : 031 035 021 degrees QTc Int : 439 ms Normal sinus rhythm Increased R/S ratio in V1, consider early transition or posterior infarct or lead placement or eliazar l variant Abnormal ECG Confirmed by YULISA ARGUETA, ANDRES ([id number]), film and video editor DESHAWN LOOMIS ([id number]) on 12/01/2019 10:11:34 AM Referred By: DEIL Confirmed By:ANDRES MÁRQUEZ MD
--- NOTE | 2019-11-26 12:51 | CT_ITS ---
STUDY: CTA CHEST REASON FOR EXAM: Female, 64 years old. SOB X 1 WEEK, HX COVID RADIATION DOSAGE (If Supplied By Facility): CTDIvol = ( 11.34 ) mGy, DLP = ( 466.26 ) mGycm TECHNIQUE: The examination was performed with the intravenous administration of IV 100mL Isovue-370. Post-processing of the angiographic images was performed, with multiplanar reformation and 3D reconstruction. Individualized dose optimization techniques were used for this CT. COMPARISON: Comparison is made with prior study dated 10/21/2019. FINDINGS: Small benign-appearing bilateral axillary lymph nodes. Normal enhancement of the main pulmonary artery and right and left pulmonary arteries. Normal enhancement of the bilateral peripheral pulmonary arteries. There is no demonstrated pulmonary embolism. Normal thoracic aorta and visualized great vessels. There is no demonstrated aortic dissection. Normal heart and pericardium. Normal mediastinum. Small right hilar lymph node. Normal visualized trachea and bronchi. The lungs are well expanded. Normal pulmonary parenchyma. Calcified granuloma in the right middle lobe. Normal pleura. Normal chest wall structures. Normal osseous structures. Normal visualized upper abdomen. CT/CTA Chest W/WO Contrast IMPRESSION: Normal CTA chest examination, without a demonstrated pulmonary embolism or arterial dissection. Electronically Signed: Arturo Lomeli, at 14:17 EDT , Service support ,
--- NOTE | 2019-11-26 12:52 | ED.DCSUM_ITS ---
History of Present Illness Chief Complaint: Shortness of Breath Informant: Patient Onset: Weeks Context: Gradual Onset Timing: Waxes and wanes Current Severity: Mild Maximum Severity: Moderate Narrative: Patient presents with shortness of breath with exertion over the past 1 to 2 weeks. She states she does get some chest pressure when this occurs. She denies cough, fever, or chills. She was diagnosed with Covid on October 20 and states overall she had a pretty mild illness. She denies any significant history of coronary artery disease. She did have a cardiac arrest secondary to an anaphylactic reaction to the medication. She denies any chronic lung conditions. - Past Medical History (1) GERD (gastroesophageal reflux disease) Status: Chronic (2) Kidney stone Status: Resolved (3) Hx of cardiac arrest Status: Chronic Past Medical History - Allergies and Home Meds Allergies/Adverse Reactions: Allergies Cyqmckj-Tnv-Eqp Reductase Inhibitor Allergy (Severe, Verified 11/26/19 12:36) Anaphylaxis atorvastatin [From Lipitor] Allergy (Verified 11/26/19 12:36) Anaphylaxis Primary Care Physician: Isidro Terry MD [Primary Care Provider] - Prior records reviewed: Yes Surgical History: cholecystectomy, hysterectomy, - - Left hip replacement Smoking Status: Former smoker - Family History Maternal Family History: Family History (Last Reviewed 04/02/18 @ 12:38 by Jody Van) Father Stomach cancer Heart problem Mother Diabetes Brother Diabetes Sister Breast cancer Family History: Reports: - Paternal Family History: Family History (Last Reviewed 04/02/18 @ 12:38 by Jody Van) Father Stomach cancer Heart problem Mother Diabetes Brother Diabetes Sister Breast cancer Family History: Reports: - Sibling Family History: Family History (Last Reviewed 04/02/18 @ 12:38 by Jody Van) Father Stomach cancer Heart problem Mother Diabetes Brother Diabetes Sister Breast cancer Family History: Reports: - Review of Systems General: Denies: Chills, Fever Eyes: Denies: Visual changes - bilaterally ENT: Denies: Bilateral ear pain Cardiovascular: Reports: Chest pain Respiratory: Reports: Dyspnea. Denies: Cough, Sputum Gastrointestinal: Denies: Abdominal pain, Nausea, Vomiting, Diarrhea Genitourinary: Denies: Dysuria Musculoskeletal: Denies: Swelling, Extremity Pain Skin: Denies: Rash Neurological: Denies: Headache Hematologic: Denies: Easy bruising, Easy bleeding Allergy: Denies: Uticaria Physical Exam Vital Signs/Narrative: Vital Signs Temp Pulse Resp BP Pulse Ox 11/26/19 12:34 97.5 F L 86 14 159/94 H 96 Inital Vital Signs reviewed: Yes General: Well nourished, Well developed Head: Normocephalic ENT: Moist mucous membranes Neck: Supple Cardiovascular: Regular rate, Regular rhythm Respiratory: No distress, CTA bilaterally Abdomen: Soft, Nontender, Normal bowel sounds Back: Nontender Extremities: Nontender Skin: Normal color, No rash Neurological: Alert, Oriented x3, Normal Strength, Normal Sensation Psychological: Normal affect Diagnostic/Tx/Re-eval Impressions Chest CTA 11/26/19 12:51 IMPRESSION: Normal CTA chest examination, without a demonstrated pulmonary embolism or arterial dissection. Electronically Signed: Arturo Yani, at 14:17 EDT , Service support , 11/26/19 12:51 CTA Chest W/WO Contrast [CT] Stat Laboratory Results 11/26/19 11/26/19 11/26/19 13:00 13:10 13:10 WBC 9.4 RBC 3.92 L Hgb 12.4 Hct 38.4 MCV 98.0 MCH 31.6 MCHC 32.3 RDW Std Deviation 46.9 H RDW Coeff of Juan Alberto 13.2 Plt Count 283 MPV 9.8 Immature Gran % (Auto) 0.400 Neut % (Auto) 66.2 Lymph % (Auto) 21.2 [place] % (Auto) 7.7 Eos % (Auto) 3.7 Baso % (Auto) 0.8 Absolute Neuts (auto) 6.2 Absolute Lymphs (auto) 2.00 Nucleated RBC % 0 Sodium 141 Potassium 4.0 Chloride 107 Carbon Dioxide 26.0 Anion Gap 8 BUN 32 H Creatinine 0.89 Estim Creat Clear Calc 45.27 Est GFR (MDRD) Af Amer 82 Est GFR (MDRD) Non-Af 68 BUN/Creatinine Ratio 35.9 H Glucose 126 H Calcium 9.4 Troponin I < 0.015 B-Natriuretic Peptide COVID-19 (MELISSA) Not Detected 11/26/19 13:10 WBC RBC Hgb Hct MCV MCH MCHC RDW Std Deviation RDW Coeff of Juan Alberto Plt Count MPV Immature Gran % (Auto) Neut % (Auto) Lymph % (Auto) [place] % (Auto) Eos % (Auto) Baso % (Auto) Absolute Neuts (auto) Absolute Lymphs (auto) Nucleated RBC % Sodium Potassium Chloride Carbon Dioxide Anion Gap BUN Creatinine Estim Creat Clear Calc Est GFR (MDRD) Af Amer Est GFR (MDRD) Non-Af BUN/Creatinine Ratio Glucose Calcium Troponin I B-Natriuretic Peptide 16.8 COVID-19 (MELISSA) - EKG Initial EKG Interpretation: Sinus Rhythm - Sinus at 84 with no acute ischemia. - Medical Decision Making Patient's work-up at this time is rather unremarkable. EKG does not reveal ischemia. Troponin and BNP are normal. CTA of the chest shows no embolus or scarring in her lungs. Patient does have significant shortness of breath with chest heaviness with any exertion that improves with rest. This may be an anginal equivalent. In light of this I have recommended observation overnight for cycling of cardiac enzymes and possible stress test. Patient is in agreement with this plan. Hospitalist is on page. ED Disposition - Plan for ED Patient: Disposition: Acute Care Hospital [facility] Diagnosis: Chest pain Referrals: Isidro Terry MD [Primary Care Provider] -
[2019-11-26 13:29] LABS: Absolute Neutrophil Count 6.2 X10^3/uL (2.0-7.7); Basophil# 0.08 X10^3/uL; Basophil% 0.8 % (0-1); Eosinophil# 0.35 X10^3/uL; Eosinophils% 3.7 % (0-5); Hematocrit 38.4 % (37-47); Hemoglobin 12.4 g/dL (12.0-15.0); Lymphocyte % 21.2 % (19-41); Mean Corp Hgb Conc 32.3 g/dL (32-36); Mean Corpuscular Hgb 31.6 pg (27.0-32.0); Mean Platelet Vol. 9.8 fl (6.2-12.0); Monocyte# 0.73 X10^3/uL; Monocyte% 7.7 % (0-10); NRBC Flagged by Analyzer 0 % (0-5); Neutrophil # 6.22 X10^3/uL (2.7-7.7); Neutrophil % 66.2 % (47-70); Platelet Count 283 K/mm3 (150-450); RBC Distribution Width CV 13.2 % (11.6-14.6); RBC Distribution Width SD 46.9 fl (35.1-43.9); Red Blood Count 3.92 M/mm3 (4.2-5.4); White Blood Count 9.4 K/mm3 (4.4-11.0)
[2019-11-26 13:40] LABS: Anion Gap 8 (5-15); BUN 32 mg/dL (7-18); BUN/Creat Ratio 35.9 RATIO (10-20); Calcium,Total 9.4 mg/dL (8.5-10.1); Chloride 107 mmol/L (98-107); Creatinine, Serum 0.89 mg/dL (0.55-1.02); EST Glomerular Filtration Rate 68 mL/min (>60); Est Glom Filt Rate - Afr Amer 82 mL/min (>60); Estimated Creatinine Clearance 45.27 ml/min; Glucose 126 mg/dL (74-106); Sodium Level 141 mmol/L (136-145)
[2019-11-26 13:46] LABS: BNP,B-Type NATRIURETIC PEPTIDE 16.8 pg/mL (0-100)
[2019-11-26] MEDS: Aspirin 81 MG TAB.CHEW 324 MG PO (15:58)
--- NOTE | 2019-11-26 16:01 | HP.PCM_ITS ---
Problem List (1) GERD (gastroesophageal reflux disease) Status: Chronic (2) Kidney stone Status: Resolved (3) Hx of cardiac arrest Status: Chronic (4) Cough Status: Acute (5) Left shoulder pain Status: Acute (6) ? r kidney nodule ct of abd Status: Chronic (7) Chest pain Status: Acute (8) Depression Status: Chronic (9) Anaphylactic reaction Status: Resolved Qualifiers: Encounter type: subsequent encounter Qualified Code(s): T78.2XXD - Anaphylactic shock, unspecified, subsequent encounter History of Present Illness Date of Admission: 11/26/19 Chief Complaint: shortness of breath and chest pressure The patient is a 64 year old F presents with a weeklong history of dyspnea on exertion and chest pressure. Patient states that whenever she has been exerting herself over the past week, she has been having dyspnea as well as a midsternal chest pressure. She states that pressure does not radiate but she is also having associated diaphoresis. Denies having any history of this in the past. In September, patient was having some malaise and was checked for COVID-19 and tested positive. Patient denies any fever chills this time and was tested for COVID-19 in the emergency room and that test was negative. [] Past Medical History Past Medical History (Chronic Problems): Chronic Problems (Last Reviewed 04/02/18 @ 12:38 by Jody Van) GERD (gastroesophageal reflux disease) (Chronic) Hx of cardiac arrest (Chronic) ? r kidney nodule ct of abd (Chronic) Depression (Chronic) Medical History: Medical History (Last Reviewed 11/26/19 @ 16:[address] Oscar London, DO) Left shoulder pain (Acute) M25.512 ? r kidney nodule ct of abd (Acute) Chest pain (Acute) R07.9 Depression (Acute) F32.9 Anaphylactic reaction (Acute) T78.2XXA Kidney stone N20.0 Left rotator cuff tear M75.102 Osteoarthritis M19.90 varicose veins Allergies Sknckyl-Jww-Fxa Reductase Inhibitor Allergy (Severe, Verified 11/26/19 12:36) Anaphylaxis atorvastatin [From Lipitor] Allergy (Verified 11/26/19 12:36) Anaphylaxis Home Medications: Ambulatory Orders Medication Instructions Recorded Loratadine 10 mg PO DAILY PRN 05/14/17 meloxicam 15 mg tablet 7.5 mg PO BID tab 02/10/18 multivitamin 1 tab PO DAILY 02/10/18 omeprazole magnesium 20 mg 20 mg PO DAILY 04/02/18 tablet,delayed release Escitalopram Oxalate [Lexapro] 5 mg PO DAILY 11/26/19 Surgical History: Surgical History (Last Reviewed 11/26/19 @ 16:[address] Oscar London DO) H/O: hysterectomy Z90.710 History of hip replacement Z96.649 Hx of cholecystectomy Z90.49 Surgical History: cholecystectomy, hysterectomy, - - Left hip replacement Psychiatric History: Depression Smoking Status: Never smoker - *Family History Maternal Family History: Family History (Last Reviewed 11/26/19 @ 16:[address] Oscar London DO) Father Stomach cancer Heart problem Mother Diabetes Brother Diabetes Sister Breast cancer History Items: - Paternal Family History: Family History (Last Reviewed 11/26/19 @ 16:[address] Oscar London DO) Father Stomach cancer Heart problem Mother Diabetes Brother Diabetes Sister Breast cancer History Items: - Sibling Family History: Family History (Last Reviewed 11/26/19 @ 16:[address] Oscar London DO) Father Stomach cancer Heart problem Mother Diabetes Brother Diabetes Sister Breast cancer History Items: - Review of Systems Constitutional: Denies: Anorexia, Night Sweats Eyes: Denies: Blurred vision, Double vision HEENT: Denies: Head Aches, Sinus Congestion, Sinus Drainage Cardiovascular: Reports: Chest Pain. Denies: Edema Respiratory: Reports: Shortness of breath upon exertion. Denies: Cough Gastrointestinal: Reports: Nausea. Denies: Abdominal Pain, Vomiting Genitourinary: Denies: Dysuria Musculoskeletal: Denies: Joint Pain, Joint Tenderness Skin: Denies: Dryness, Jaundice Neurological: Denies: Numbness, Tingling, Focal weakness Psychiatric: Denies: Anxiety, Depression Hematologic/ Lymphatic: Denies: Easy Bruising, Easy Bleeding, Hx of blood clot Comment: All review of systems were negative except as mentioned above in the history of present illness and the other review of systems. VTE Information - Inpt Only VTE Present on Admission: No VTE Mechan Device Prophylaxis: None VTE Pharm Prophylaxis ordered?: Yes Patient Problems: Active and Suspected Problems (Last Reviewed 04/02/18 @ 12:38 by Jody Van) Chest pain (Acute) - Physical Exam Vitals/I&O's: Vital Signs Temp Pulse Resp BP Pulse Ox 36.6 C 80 15 137/75 H 95 11/26/19 15:59 11/26/19 15:59 11/26/19 15:59 11/26/19 15:59 11/26/19 15:59 Oxygen Delivery Method Room Air Weight: 98 kg Body Mass Index (BMI) 42.2 General: Alert, Cooperative, No apparent distress HEENT: Atraumatic, Normocephalic Oral: Moist Mucosa, No Gingival or Mucosal Lesions/ Ulcerations Neck: No Nodes, Thyroid Normal Size and Texture Lungs: Clear to auscultation, Normal air movement, No rhonchi, No wheeze, No rales Cardiovascular: Regular rate, Regular Rhythm, Normal S1, Normal S2, No murmurs Abdomen: Bowel Sounds Present, Soft, Non Tender, Non-Distended, No Hepato- splenomegaly Extremities: No edema, No Calf Tenderness Skin: No rashes, No breakdown Musculoskeletal: No Tenderness to Palpation of Joints or Extremities, No Muscle Wasting Psych/Mental Status: Normal Affect, Appropriate Laboratory Results 11/26/19 13:00: COVID-19 (MELISSA) Not Detected 11/26/19 13:10: WBC 9.4, RBC 3.92 L, Hgb 12.4, Hct 38.4, MCV 98.0, MCH 31.6, MCHC 32.3, RDW Std Deviation 46.9 H, RDW Coeff of Juan Alberto 13.2, Plt Count 283, MPV 9.8, Immature Gran % (Auto) 0.400, Neut % (Auto) 66.2, Lymph % (Auto) 21.2, [place] % (Auto) 7.7, Eos % (Auto) 3.7, Baso % (Auto) 0.8, Absolute Neuts (auto) 6.2, Absolute Lymphs (auto) 2.00, Nucleated RBC % 0 11/26/19 13:10: Sodium 141, Potassium 4.0, Chloride 107, Carbon Dioxide 26.0, Anion Gap 8, BUN 32 H, Creatinine 0.89, Estim Creat Clear Calc 45.27, Est GFR (MDRD) Af Amer 82, Est GFR (MDRD) Non-Af 68, BUN/Creatinine Ratio 35.9 H, Glucose 126 H, Calcium 9.4, Troponin I < 0.015 11/26/19 13:10: B-Natriuretic Peptide 16.8 EKG personally viewed and showed normal sinus rhythm with no acute changes. CTA of the chest personally reviewed and showed no acute changes. Assessment/Plan All Active Problems (Last Reviewed 04/02/18 @ 12:38 by Jody Van) Kidney stone (Resolved) Cough (Acute) Left shoulder pain (Acute) Chest pain (Acute) Anaphylactic reaction (Resolved) 1. Chest pain * Patient also with dyspnea on exertion. No acute issues can be identified at this time. Concern is for cardiac equivalent. * Patient received aspirin in the emergency room and will continue with 81 aspirin daily thereafter. * Plan is for a stress test in the morning. 2. Recent COVID-19 * Currently negative and has no active symptoms at this time. No CT findings concerning for COVID-19 at this time either. * No isolation needed at this time. 3. History of anaphylaxis to statins * Patient is under no circumstances receive any statins even if her cholesterol is high and does require coronary intervention. 4. VTE prophylaxis: Not indicated patient is observation status at this time. 5. Advanced care planning: Discussed with the patient. Patient wished to be DNR Comfort Care arrest at this time. OBSV E&M: [id number] Initial observation care L2
--- NOTE | 2019-11-26 16:11 | EKG12_ITS ---
Test Reason : CP Blood Pressure : / mmHG Vent. Rate : 072 BPM Atrial Rate : 072 BPM P-R Int : 138 ms QRS Dur : 080 ms QT Int : 400 ms P-R-T Axes : 042 036 010 degrees QTc Int : 438 ms Normal sinus rhythm Normal ECG When compared with ECG of 26-NOV-2019 13:05, MANUAL COMPARISON REQUIRED, DATA IS UNCONFIRMED Confirmed by DULCE ARGUETA, RUTH ([id number]), editor & co founder DESHAWN LOOMIS ([id number]) on 12/02/2019 9:44:00 AM Referred By: MADISON Confirmed By:RUTH CARDONA MD
[2019-11-27] VITALS (7 sets, daily range): BP systolic 114–124; BP diastolic 51–72; PULSE 67–79; RESP 15–17; TEMP 36.2–36.8; O2SAT 92–95
[2019-11-27] MEDS: 0.9% Saline Lock 10 ML Syringe IV (06:43)
[2019-11-27 07:29] LABS: Cholesterol 214 mg/dL (200); High Density Lipoprotein 55 mg/dL; Triglycerides 150 mg/dL; Very Low Density Lipoprotein 30 mg/dL (5-40)
[2019-11-27] MEDS: Aspirin E.C. 81 MG Tablet PO (10:01)
[2019-11-27] MEDS: Multivitamins,Therapeutic Tablet 1 TABLET PO (10:01)
[2019-11-27] MEDS: Pantoprazole Sodium 20 MG Tablet PO (10:01)
[2019-11-27] MEDS: Escitalopram Oxalate 10 MG Tablet 5 MG PO (10:01)
--- NOTE | 2019-11-27 11:09 | STRESSREP_ITS ---
Stress Test Report Date: 11/27/2019 Procedure: Exercise tolerance test/imaging study Indications: Chest pain Consent: Per the patient Procedure: The patient exercised on a Jaime protocol for 3 minutes and 30 seconds achieving a peak heart rate of 130 bpm (83 % predicted maximal heart rate) with a peak blood pressure 156/80 mmHg and a peak MET capacity of 4.6 METs. The baseline ECG demonstrated normal sinus rhythm. The peak exercise ECG demonstrated no significant ST-T changes. EKG during recovery revealed no significant ST-T changes [There were no cardiac dysrhythmias pretest, during exercise, or recovery]. The functional capacity was considered decreased for age. Patient had mild chest pressure with exertion. The examination was discontinued secondary to dyspnea. Impression: 1. Stress test is negative for exercise-induced EKG changes of ischemia 2. The test test is positive for exercise-induced chest pain 3. Functional capacity is decreased for age 4. Nuclear images pending Myocardial perfusion imaging study: Technique: The patient was injected with 13.8 mCi of technetium 99m Cardiolite and subsequently rest SPECT Cardiolite nuclear imaging was obtained in the horizontal long, vertical long, and short axis views. The patient exercised on a Jaime protocol. Please see above for details. The patient was injected with 42 mCi of technetium 99m Cardiolite and subsequently stress SPECT Cardiolite nuclear imaging was obtained in the horizontal long, vertical long, and short axis views. A gated Cardiolite study at peak stress was obtained. Interpretation: Rest and stress SPECT Cardiolite nuclear imaging status post realignment, normalization, and attenuation correction, demonstrates normal myocardial radioisotope uptake. The gated Cardiolite study demonstrates no significant regional wall motion abnormalities. The reported LVEF is 65 %. Impression: 1. There is no evidence of significant ischemia or infarction. 2. The gated Cardiolite study reports an LVEF of 65 %. This note was generated with Grounded[employer] software. It may contain incorrect words, spelling, and punctuation that were not noted in checking the note before signing.
--- NOTE | 2019-11-27 11:55 | DCINST_ITS ---
- Discharge Diagnoses Current Active Problems: Current Active and Chronic Problems (Last Reviewed 11/26/19 @ 16:[address] Oscar London, DO) Chest pain (Acute) You will use the following diet at home:: Cardiac Your food should be the consistency of: Regular Your liquids should be the consistency of: Regular/Thin Discharge Activity: Return to Normal Activity Allergies/Adverse Reactions: Allergies Mlqkaoe-Bmn-Fcd Reductase Inhibitor Allergy (Severe, Verified 11/26/19 12:36) Anaphylaxis atorvastatin [From Lipitor] Allergy (Verified 11/26/19 12:36) Anaphylaxis Medications to take at Discharge Loratadine 10 mg PO DAILY PRN 05/14/17 meloxicam 15 mg tablet 7.5 mg PO BID tab 02/10/18 multivitamin 1 tab PO DAILY 02/10/18 omeprazole magnesium 20 mg tablet,delayed release 20 mg PO DAILY 04/02/18 Escitalopram Oxalate [Lexapro] 5 mg PO DAILY 11/26/19 Primary Care Physician: Isidro Terry MD [Primary Care Provider] - Please follow up with your Primary Care Physician in: 1-2 weeks Test Results: Test results from this visit will be discussed in further detail at your follow- up appointment, if applicable. Proposed Discharge Date: 11/27/19
--- NOTE | 2019-11-27 13:43 | PCM.DC.SUM ---
<Stephan Vieyra - Last Filed: 11/27/19 13:43> Discharge Date and Diagnosis Date of Admission: 11/26/19 Date of Discharge: 11/27/19 - Primary Discharge Diagnosis Acute Problems: Chest pressure - musculoskeletal - Secondary Discharge Diagnosis Chronic Problems: Chronic Problems (Last Reviewed 11/26/19 @ 16:[address] Oscar London, DO) GERD (gastroesophageal reflux disease) (Chronic) Hx of cardiac arrest (Chronic) ? r kidney nodule ct of abd (Chronic) Depression (Chronic) Hospital Course and Treatment Imaging Results: 11/27/19 05:55 Nuclear Stress Test - Treadmil [NM] AM (NON MEDS) Interpretation: Rest and stress SPECT Cardiolite nuclear imaging status post realignment, normalization, and attenuation correction, demonstrates normal myocardial radioisotope uptake. The gated Cardiolite study demonstrates no significant regional wall motion abnormalities. The reported LVEF is 65 %. Impression: 1. There is no evidence of significant ischemia or infarction. 2. The gated Cardiolite study reports an LVEF of 65 %. CT/CTA Chest W/WO Contrast IMPRESSION: Normal CTA chest examination, without a demonstrated pulmonary embolism or arterial dissection. Operations: None Procedures: Stress test Summary of Care Provided: Hospital course: The patient is a 64 year old F with history of cardiac arrest, depression, kidney stones, GERD, who presented to the emergency room with complaints of dyspnea on exertion and chest pressure. The patient had COVID-19 in September however has since recovered. The patient had a negative CTA of the chest in the ER, negative troponin, negative EKG. She was admitted to the PCU and placed on telemetry for chest pain work-up. She had no events on telemetry. Troponin was negative x3 and repeat EKGs were negative. Stress test was normal the following day. She was discharged home in stable condition and will need to follow-up with her PCP in 1 to 2 weeks. This patient was seen by Stephan Vieyra PA-C under the supervision of Doctor Cadena. [] - Physical Exam Vitals/I&O's: Vital Signs Temp Pulse Resp BP Pulse Ox 98.2 F 67 17 124/72 H 95 11/27/19 13:01 11/27/19 13:01 11/27/19 13:01 11/27/19 13:01 11/27/19 13:01 Oxygen Delivery Method Room Air Weight: 215 lb 13.321 oz Body Mass Index (BMI) 42.1 Intake and Output for Last 24 Hours 11/25/19 11/26/19 11/27/19 23:59 23:59 23:59 Intake Total 360 / 460 220 / 220 Balance 360 / 460 220 / 220 Laboratory Results 11/26/19 13:00: COVID-19 (MELISSA) Not Detected 11/26/19 13:10: B-Natriuretic Peptide 16.8 11/26/19 16:15: Troponin I < 0.015 11/26/19 19:05: Troponin I < 0.015 11/27/19 06:14: Triglycerides 150, Cholesterol 214 H, LDL Cholesterol 129, VLDL Cholesterol 30, HDL Cholesterol 55 Discharge Diet: Low fat/ Low Cholesterol, 2000 mg Sodium Diet Discharge Activity: Return to Normal Activity Home Medications: Medications to take at Discharge Loratadine 10 mg PO DAILY PRN 05/14/17 meloxicam 15 mg tablet 7.5 mg PO BID tab 02/10/18 multivitamin 1 tab PO DAILY 02/10/18 omeprazole magnesium 20 mg tablet,delayed release 20 mg PO DAILY 04/02/18 Escitalopram Oxalate [Lexapro] 5 mg PO DAILY 11/26/19 Primary Care Physician: Isidro Terry MD [Primary Care Provider] - Please follow up with your Primary Care Physician in: 1-2 weeks Disposition: Home Minutes spent on discharge:: 35 Patient Condition:: Stable Medical Necessity - Tobacco Use Smoking Status: Never smoker Meaningful Use Info Meaningful Use Diagnoses (Choose all that apply): None applicable <[place] - Last Filed: 11/27/19 18:27> Discharge Date and Diagnosis - Secondary Discharge Diagnosis Chronic Problems: Chronic Problems (Last Reviewed 11/26/19 @ 16:[address] Oscar London, DO) GERD (gastroesophageal reflux disease) (Chronic) Hx of cardiac arrest (Chronic) ? r kidney nodule ct of abd (Chronic) Depression (Chronic) Hospital Course and Treatment Summary of Care Provided: This patient was seen in conjunction with DIANA Almeida. I have independently interviewed and examined the patient and reviewed pertinent historical, laboratory, and other data. Please refer to DIANA Almeida note for his patient's presentation, findings, and recommendations. I have reviewed and his note and concur with his documentation 64-year-old with past medical history of GERD, history of cardiac arrest was admitted with chest pain associated with diaphoresis. Patient was diagnosed with COVID-19 in September. Work-up in the emergency room was negative. She underwent stress test that was negative. No acute events on telemetry. Patient was discharged to follow-up with her primary care doctor in 1 to 2 weeks. On the day of discharge, patient was seen and examined. No acute events. Physical Exam: Gen: Morbidly Obese, not pale, not jaundiced CVS:HS I +II, regular, no murmurs RESP: CTA GI: BS present and normal, soft, nontender, no palpable organs EXT:No edema - Physical Exam Vitals/I&O's: Vital Signs Temp Pulse Resp BP Pulse Ox 98.2 F 67 17 124/72 H 95 11/27/19 13:01 11/27/19 13:01 11/27/19 13:01 11/27/19 13:01 11/27/19 13:01 Oxygen Delivery Method Room Air Weight: 97.9 kg Body Mass Index (BMI) 42.1 Intake and Output for Last 24 Hours 11/25/19 11/26/19 11/27/19 23:59 23:59 23:59 Intake Total 360 / 460 220 / 220 Balance 360 / 460 220 / 220 Laboratory Results 11/26/19 19:05: Troponin I < 0.015 11/27/19 06:14: Triglycerides 150, Cholesterol 214 H, LDL Cholesterol 129, VLDL Cholesterol 30, HDL Cholesterol 55 OBSV E&M: 65130 Observation care discharge
== END 2019-11-27 11:56 | disposition home or self-care (01) ==
LOC: ED 15:43 → PCU 16:27
PROVIDERS: Emergency Provider Emergency Medicine; PCP Family Medicine; Visit Provider Internal Medicine
DX: R07.89 Other chest pain (principal); K21.9 Gastro-esophageal reflux disease without esophagitis; F32.9 Major depressive disorder, single episode, unspecified; R06.02 Shortness of breath; M19.90 Unspecified osteoarthritis, unspecified site; Z86.74 Personal history of sudden cardiac arrest; Z79.899 Other long term (current) drug therapy; Z87.891 Personal history of nicotine dependence; Z86.19 Personal history of other infectious and parasitic diseases; E66.01 Morbid (severe) obesity due to excess calories; Z68.41 Body mass index [BMI] 40.0-44.9, adult
CPT/HCPCS: 36415; 71275; 78452; 80048; 80061; 83880; 84484; 85025; 87635; 93005; 93017; 97802; 99218; 99285; A9500; C9803; Q9967; A4216; G0378; U0003

== ENCOUNTER → 2019-12-28 08:28 | Outpatient (CLI) | payer MEDICARE, SELFPAY ==
[2019-11-26 16:23] VITALS: BMI 42.1
--- NOTE | 2019-12-29 08:27 | PFT ---
INTRODUCTION: The patient is a 64-year-old female that presents for pulmonary function studies secondary to a diagnosis of shortness of breath. Respiratory therapy reports good patient effort. Bronchodilators were used during testing. INTERPRETATION: Forced expiration spirometry demonstrates no evidence of a large airways obstructive ventilatory defect. There was no significant response to aerosolized bronchodilators, based upon strict ATS criteria. Spirograms are of good quality and plateau normally. Body plethysmography was performed and reveals lung volumes to be within normal limits. Diffusing capacity by single breath CO is reduced at 48% of predicted. When compared to previous pulmonary function studies dated February 2018, there has been a 10% reduction in FEV1 along with a 23% reduction in DLCO. IMPRESSION: Isolated moderate reduction in diffusing capacity, which could be related to an underlying pulmonary vascular disorder, such as pulmonary hypertension. There have been reductions in the patient's FEV1 and DLCO since 2017, as noted above.
== END ==
PROVIDERS: PCP Family Medicine; Referring Provider Family Medicine; Visit Provider Family Medicine
DX: R06.02 Shortness of breath (principal)
CPT/HCPCS: 94060; 94726; 94729

== ENCOUNTER → 2020-02-22 14:23 | Outpatient (CLI) | payer MEDICARE, SELFPAY ==
[2019-11-26 16:23] VITALS: BMI 42.1
== END ==
PROVIDERS: PCP Family Medicine; Referring Provider Family Medicine; Visit Provider Registered Nurse
DX: R05 Cough (principal)
CPT/HCPCS: 87633; 87635; U0003

== ENCOUNTER 2020-04-10 11:00 | Outpatient (RCR) | payer MEDICARE, SELFPAY ==
[2019-11-26 16:23] VITALS: BMI 42.1
--- NOTE | 2020-03-28 09:51 | HP.PTEVAL_ITS ---
Patient's Visit Information LESLIE AGUIRRE is a 64 year old F referred to Physical Therapy by Dr. Isidro Terry MD with a diagnosis of R knee pain, suspected patellar dislocation. Date of Evaluation: 03/21/20 Physical Therapist: Emre Costa DPT - Visit Plan Frequency: 2x /Week Duration: 6 Weeks Plan: Start with gentle ROM and isometrics of RLE. Progress quad/glute/HS strengthening as tolerated. PRogressing back to work as patient is able. Pt. to consider going back to work this weekend, if not by next week. - Subjective Pt. is here today for her initial evaluation with diagnosis of R knee pain, possible patellar dislocation. Pt. reports at work stepping back awkwardly and hyper extending her knee. Pt. felt her knee cap deviate laterally, but popped right back. Pt arrives in straight leg brace today. I am already feeling a bit better. Pt. has been icing and doing well better. No exercises currentlly. Pt. denies N/T, no weakness noted. Pt. works at [employer] in the [employer]. Pt. is hopeful to return to work this weekend or next week. - Pain R knee Pain Intensity (Out of 10): 3 Pain Intensity Range: 0, 6 - Objective POSTURE: Pt. has good posture in stance. Pt. is wearing a immobilizer brace on her R knee with sligth wt. shift to L side. PALPATION: Pt. has tenderness to patellar tendon, along medial/lateral aspect of patella. Pt. also has some tenderness at post/medial aspect of popliteal fossa. NEURO: normal throughout. ROM: Pt. ROM of R knee 0-10-70deg. Tigght Hs noted as well. MMT: hip- 5/5 thr oughout; I did not test knee strenth, but is able to have a solid quad set, no extensor lag with SLR without brace. GAIT: Pt. lacks TKE during stance phase on R side. Pt. has also limited knee flexion during swing phase. STAIRS: step to pattern loading LLE only. - Goals Goal 1:: LTG: Pt. to be I with HEP. Goal Time Frame: 4-6 Weeks Goal 2:: STG: Pt. to have full R knee ROM without increase in symptoms. Goal Time Frame: 2 Weeks Goal 3:: LTG: Pt. to walk unlimited distances without increase in symptoms. Goal Time Frame: 4-6 Weeks Goal 4:: LTG: Pt. to resume all work related activities without increase in symptoms. Goal Time Frame: 4-6 Weeks Goal 5:: LTG: Pt. to have 5/5 strength throughout RLE. Goal Time Frame: 4-6 Weeks - Rehabilitation Potential Physical Therapy Diagnosis: Pt. has signs and symptoms consistent with R patellar dislocation with self relocation. Pt. has subsequent weakness and pain in R knee joint/musculature. Pt. would benefit from PT to work on decreasing symptoms and re introducting quad strengthening, knee ROM and progressing back to work/recreational activities. Rehabilitation Potential: Excellent - Anticipated Interventions Patient/Client Instruction: Educate patient on: Condition, Plan of Care, Risk Factors, Benefits of Fitness Program For the Purpose of:: To foster healthy habits, To improve decision making, To improve self management, To prevent re-injury, To improve ability to perform tasks related to life management Therapeutic Exercise to Include: Strength training, Power training, Endurance training, Balance training, Body mechanics, Postural training, Flexibilty training, Gait and locomotor training For the Purpose of:: To decrease pain, To decrease swelling/inflammation, To increase ROM, To improve nutrient delivery to tissue, To increase oxygenation perfusion, To improve ability to perform ADL's, To improve health of tissue, To decrease soft tissue restriction, To increase flexibility/ROM Cryotherapy (ice pack, ice massage): Yes For the Purpose of:: To decrease pain, To decrease swelling/inflammation, To increase ROM Thank you for the opportunity to evaluate your patient. For Medicare and Medicare HMO plans, please review the plan of care and approve it. It will need to be FAXED BACK to us at [phone] for Medicare purposes. For Medicare only, by signing this I certify the plan of care. Please let me know if there are questions or concerns regarding this plan of care. Physician Signature: Date:
--- NOTE | 2020-04-10 13:02 | HP.PTDCSUM ---
It has been my pleasure to treat LESLIE AGUIRRE referred by Dr. Isidro Terry MD, with the diagnosis of R knee pain, suspected patellar dislocation for a total of 6 visit(s). Discharge Date: Please see the following information for a summary of their discharge status. Subjective: Pt. reports no pain currently. Pt. reports being 98-99% better overall. Pt. reports no pain. She is back to work without issues. R knee Pain Intensity (Out of 10): 0 % Improvement: 98 Objective/Function: ROM: R knee 0-0-122deg, no pain with testing. MMT: 5-/5 throughout RLE, no pain with testing. GAIT: Pt. is able to ambulate unlimited distances without increase in symptims. STAIRS: Pt. is able to complete with reciprocal pattern without issues. She does have some slight L hip pain with ascending and descending. Goal 1:: LTG: Pt. to be I with HEP. Goal Progress: Goal Met Goal 2:: STG: Pt. to have full R knee ROM without increase in symptoms. Goal Progress: Goal Met Goal 3:: LTG: Pt. to walk unlimited distances without increase in symptoms. Goal Progress: Goal Met Goal 4:: LTG: Pt. to resume all work related activities without increase in symptoms. Goal Progress: Goal Met Goal 5:: LTG: Pt. to have 5/5 strength throughout RLE. Goal Progress: Goal Met Plan: Pt to be DC to HEP and back to physician at this point intime. If there are questions or concerns regarding this patient's physical therapy, please feel free to call me at [phone]. Thank you for the referral of this patient. Sincerely, ESTHELA RuffinT
== END 2020-04-10 19:00 | disposition home or self-care (01) ==
LOC: PT 11:00
PROVIDERS: PCP Family Medicine; Referring Provider Family Medicine; Visit Provider Family Medicine
DX: M25.561 Pain in right knee (principal)
CPT/HCPCS: 97110; 97161; 97164

== ENCOUNTER → 2020-07-14 12:19 | Outpatient (CLI) | payer MEDICARE, SELFPAY ==
[2019-11-26 16:23] VITALS: BMI 42.1
--- NOTE | 2020-07-14 12:20 | BI_ITS ---
MAMMOGRAPHY - BILATERAL SCREENING REASON FOR EXAM: Female, 64 years old. Routine annual screening examination. PERTINENT HISTORY: Sister with breast cancer. TECHNIQUE: Digital bilateral breast romeo (3D mammographic acquisition) in the CC and MLO projections. 2-D mediolateral oblique (MLO) and craniocaudad (CC) views of both breasts were obtained. CAD: Full Field Digital Mammography with Computer Added Detection was performed. COMPARISON: Comparison is made with prior study dated 12/09/2018 and 12/03/2017. FINDINGS: Breast Composition: The breasts are almost entirely fatty. There are no dominant masses or suspicious calcifications. Stable small benign appearing bilateral axillary lymph nodes. No other significant abnormalities are identified. There has been no significant change since the prior study. BI/SCRN MAMM (CAD)W/ROMEO BILAT IMPRESSION: Stable bilateral screening mammogram. Yearly follow-up mammogram recommended. (A) ASSESSMENT CATEGORY: BIRADS Category 1: Negative. A letter regarding these results will be sent to the patient by the facility within 30 days. Approximately 10% of breast cancers are not detected by mammography. A normal mammogram should not delay biopsy of a clinically suspicious abnormality. [id number] Electronically Signed: Arturo Lomeli MD at 13:26 EDT , Service support ,
== END ==
PROVIDERS: PCP Family Medicine; Referring Provider Family Medicine; Visit Provider Family Medicine
DX: Z12.31 Encounter for screening mammogram for malignant neoplasm of breast (principal)
CPT/HCPCS: 77063; 77067

== ENCOUNTER → 2020-08-02 12:44 | Outpatient (CLI) | payer MEDICARE, SELFPAY ==
[2020-07-18 11:22] VITALS: BMI 40.6
--- NOTE | 2020-08-02 12:47 | ECHOCS_ITS ---
Version 2 Reason For Study: Chest Pain Procedure This was a 2D Doppler, Color Flow transthoracic echocardiogram. The study was technically difficult. Contrast injection was performed. Exam performed in department. Left Ventricle Normal LV size. Left ventricular systolic function is normal. The estimated ejection fraction is 60 %. No regional wall motion abnormalities noted. Right Ventricle Normal RV size. Normal systolic function. Atria Normal left atrium. Normal right atrium. Mitral Valve Normal mitral valve. Mild (1+) eccentric mitral valve insufficiency. Tricuspid Valve Normal tricuspid valve. Mild (1+) tricuspid valve insufficiency. Pulmonary artery systolic pressure is 33 mmHg. Aortic Valve Normal aortic valve. Trisinus/trileaflet aortic valve. Pulmonic Valve Normal pulmonic valve. Great Vessels Normal aortic root. The pulmonary is not well visualized. Normal inferior vena cava. Pericardium/Pleural No pericardial effusion. Medication 22 gauge I.V. with prn adaptor inserted into right arm. Diluted definity 3ml given slow IV push to enhance endocardial definition. MMode/2D Measurements & Calculations LVIDd: 4.2 cm IVSd: 1.0 cm LA dimension: 3.8 cm LVIDs: 2.2 cm LVPWd: 1.1 cm RVDd: 3.5 cm FS: 48.8 % LAV(MOD-bp): 50.3 ml LA A4 area: 20.2 cm2 RA A4 area: 15.7 cm2 LAV(MOD-bp) Indexed: 25.4 ml/m2 LAV(MOD-sp2): 42.2 ml LAV(MOD-sp4): 53.1 ml Time Measurements MV dec time: 0.28 sec Doppler Measurements & Calculations MV E max gregg: 86.7 cm/sec Lat Peak E' Gregg: 11.2 cm/sec Med Peak E' Gregg: 7.7 cm/sec MV A max gregg: 85.7 cm/sec E/E' lat: 7.7 E/E' med: 11.2 MV E/A: 1.0 MV V2 max: 78.9 cm/sec MV P1/2t max gregg: 78.9 cm/sec Ao V2 max: 132.0 cm/sec MV max P.5 mmHg MV P1/2t: 89.5 msec Ao max P.0 mmHg MV V2 mean: 47.2 cm/sec MV dec slope: 258.5 cm/sec2 MV mean P.1 mmHg MV V2 VTI: 25.9 cm MVA(P1/2t): 2.5 cm2 LV V1 max: 113.1 cm/sec PA V2 max: 97.3 cm/sec TR max gregg: 269.7 cm/sec LV V1 max P.1 mmHg TR max P.1 mmHg ECHO/Echo Complete W/ Contrast Interpretation Summary Normal LV size. Left ventricular systolic function is normal. The estimated ejection fraction is 60 %. Mild (1+) eccentric mitral valve insufficiency. Mild (1+) tricuspid valve insufficiency. Pulmonary artery systolic pressure is 33 mmHg. Ordering Physician: Aaron Ochoa Referring Physician: Isidro Terry Performed By: De Green RCS
== END ==
LOC: CVS 12:45
PROVIDERS: PCP Family Medicine; Referring Provider Internal Medicine Critical Care Medicine; Visit Provider Internal Medicine Critical Care Medicine
DX: R07.9 Chest pain, unspecified (principal)
CPT/HCPCS: 93306; Q9957; A4216; C8929

== ENCOUNTER → 2020-08-10 12:13 | Outpatient (CLI) | payer MEDICARE, SELFPAY ==
[2020-07-18 11:22] VITALS: BMI 40.6
[2020-08-10 12:40] VITALS: PULSE 71; PULSE 76; PULSE 77; PULSE 84; PULSE 87; PULSE 92; PULSE 96; PULSE 99; O2SAT 92; O2SAT 93
--- NOTE | 2020-08-10 13:32 | WT_ITS ---
PSN 6 Minute Walk Test 6 Minute Walk Test 6 Minute Walk Test: 6 Minute Walk Test PSN:6-Minute Walk Test Start: 08/10/20 12:40 Freq: Status: Active Protocol: RESP.6MINW Document 08/10/20 12:40 [facility] (Rec: 08/10/20 12:45 [facility] [id number]) 6 Minute Walk Test Date Performed 08/10/20 Time Performed 12:30 Height 5 ft 2 in Weight: 217 lb Weight in Pounds 217.[address]: Aaron Ochoa Assistive device used: None Pre-test Oxygen Delivery Method Room Air Pulse Ox (%) 93 Pulse Rate (60-100 beats/min) 71 Dyspnea Liz Scale (0-10) 2 1st minute Oxygen Delivery Method Room Air Pulse Ox (%) 93 Pulse Rate (60-100 beats/min) 77 Dyspnea Liz Scale (0-10) 3 Number of Rests Taken 0 Reported Symptoms Increased Work of Breathing 2nd minute Oxygen Delivery Method Room Air Pulse Ox (%) 93 Pulse Rate (60-100 beats/min) 84 Dyspnea Liz Scale (0-10) 4 Number of Rests Taken 0 Reported Symptoms Increased Work of Breathing 3rd minute Oxygen Delivery Method Room Air Pulse Ox (%) 93 Pulse Rate (60-100 beats/min) 87 Dyspnea Liz Scale (0-10) 4 Number of Rests Taken 0 Reported Symptoms Increased Work of Breathing 4th minute Oxygen Delivery Method Room Air Pulse Ox (%) 92 Pulse Rate (60-100 beats/min) 92 Dyspnea Liz Scale (0-10) 4 Number of Rests Taken 0 Reported Symptoms Increased Work of Breathing 5th minute Oxygen Delivery Method Room Air Pulse Ox (%) 93 Pulse Rate (60-100 beats/min) 96 Dyspnea Liz Scale (0-10) 4 Number of Rests Taken 0 Reported Symptoms Increased Work of Breathing 6th minute Oxygen Delivery Method Room Air Pulse Ox (%) 92 Pulse Rate (60-100 beats/min) 99 Dyspnea Liz Scale (0-10) 4 Number of Rests Taken 0 Reported Symptoms Increased Work of Breathing Post-test Oxygen Delivery Method Room Air Pulse Ox (%) 93 Pulse Rate (60-100 beats/min) 76 Dyspnea Liz Scale (0-10) 2 Full Laps Walked 16 Partial Lap, Number of Tiles Walked 15 Total Distance Walked (ft) 959 Interpretation Interpretation: The patient ambulated 959 feet over the course of 6 minutes beginning on room air without any assistive devices. Pretesting oxygen saturation was noted to be 93% on room air. With ambulation, the christy oxygen saturation was 92%. There was no significant exertional oxygen desaturation. Recommendations Recommendations: There is no indication for the use of supplemental oxygen at this time.
== END ==
PROVIDERS: PCP Family Medicine; Referring Provider Internal Medicine Critical Care Medicine; Visit Provider Internal Medicine Critical Care Medicine
DX: R06.02 Shortness of breath (principal)
CPT/HCPCS: 94618

== ENCOUNTER → 2020-10-12 10:54 | Outpatient (CLI) | payer MEDICARE, SELFPAY ==
[2020-08-31 07:42] VITALS: BMI 40.8
--- NOTE | 2020-10-12 10:59 | RAD_ITS ---
STUDY: X-RAY - PELVIS AND LEFT HIP REASON FOR EXAM: Female, 65 years old. Pain. TECHNIQUE: 4 views of the pelvis and hip. COMPARISON: 11/29/2017. FINDINGS: There is a non-specific bowel gas pattern. Normal visualized soft tissue structures. Generalized osteopenia. Mild arthrosis of the sacroiliac joints and symphysis pubis unchanged. Stable right total hip arthroplasty. New left total hip arthroplasty in anatomic alignment without complications. RAD/HIP, UNI W/ Pelvis 2-3 Views IMPRESSION: Stable osteopenia, mild arthrosis of both sacroiliac joints and symphysis pubis and right total hip arthroplasty. New left total hip arthroplasty with no complicating features. Electronically Signed: Elliott Foote MD at 12:59 EDT , Service support ,
--- NOTE | 2020-10-12 11:00 | RAD_ITS ---
STUDY: X-RAY - LEFT KNEE REASON FOR EXAM: Female, 65 years old. Knee pain. TECHNIQUE: 4 view(s) of the knee. COMPARISON: None. FINDINGS: Generalized osteopenia. Normal visualized distal femur. Normal visualized proximal tibia and fibula. Normal proximal tibiofibular articulation. Normal medial femorotibial compartment. Normal lateral femorotibial compartment. Normal patellofemoral articulation. The soft tissue structures are unremarkable. RAD/Knee 4 or More Views IMPRESSION: Osteopenia with no other abnormality of the left knee. Electronically Signed: Elliott Foote MD at 12:58 EDT , Service support ,
== END ==
LOC: MTRAD 10:57
PROVIDERS: PCP Family Medicine; Referring Provider Nurse Practitioner Family; Visit Provider Nurse Practitioner Family
DX: M25.562 Pain in left knee (principal); M25.552 Pain in left hip
CPT/HCPCS: 73502; 73564

== ENCOUNTER → 2020-11-03 10:00 | Outpatient (CLI) | payer MEDICARE, SELFPAY ==
[2020-08-31 07:42] VITALS: BMI 40.8
[2020-11-03 12:15] LABS: Hematocrit 39.9 % (37-47); Hemoglobin 13.4 g/dL (12.0-15.0); Mean Corp Hgb Conc 33.6 g/dL (32-36); Mean Corpuscular Hgb 31.9 pg (27.0-32.0); Mean Platelet Vol. 10.1 fl (6.2-12.0); Platelet Count 360 K/mm3 (150-450); RBC Distribution Width CV 12.4 % (11.6-14.6); RBC Distribution Width SD 43.3 fl (35.1-43.9); White Blood Count 8.2 K/mm3 (4.4-11.0)
[2020-11-03 12:41] LABS: ALB/GLOB Ratio 0.7 RATIO (0.9-2.4); AST(SGOT) 14 U/L (15-37); Alanine Aminotransfer ALT/SGPT 20 U/L (13-56); Albumin, Serum 3.5 g/dL (3.2-5.0); Alkaline Phosphatase 94 U/L (45-117); Anion Gap 6 (5-15); BUN 16 mg/dL (7-18); BUN/Creat Ratio 18.8 RATIO (10-20); Calcium,Total 8.9 mg/dL (8.5-10.1); Chloride 107 mmol/L (98-107); Creatinine, Serum 0.85 mg/dL (0.55-1.02); EST Glomerular Filtration Rate 71 mL/min (>60); Est Glom Filt Rate - Afr Amer 86 mL/min (>60); Globulin 4.7 g/dL (2.2-4.2); Glucose 109 mg/dL (74-106); Potassium 3.5 mmol/L (3.5-5.1); Protein, Total 8.2 g/dL (6.4-8.2); Sodium Level 139 mmol/L (136-145)
== END ==
PROVIDERS: PCP Family Medicine; Referring Provider Family Medicine; Visit Provider Family Medicine
DX: K92.1 Melena (principal)
CPT/HCPCS: 36415; 80053; 85027

== ENCOUNTER 2020-11-20 11:36 | Day surgery (SDC) | payer MEDICARE, MEDICAID, SELFPAY ==
[2020-08-31 07:42] VITALS: BMI 40.8
[2020-11-20 12:15] VITALS: BP 153/93; PULSE 72; RESP 16; TEMP 36.3; O2SAT 94; BMI 39.9
[2020-11-20] MEDS: Lactated Ringers 1,000 ML 100 ML IV (12:25)
[2020-11-20 13:45] VITALS: BP 114/49; BP 118/51; BP 153/93; PULSE 64; PULSE 65; RESP 16; TEMP 35.7; O2SAT 94
--- NOTE | 2020-11-20 13:45 | OP.COLON_ITS ---
Patient Name: Christa Davis Procedure Date: 11/20/2020 1:18 PM Date of : 1955 Age: 65 Procedure: Colonoscopy Indications: Lower abdominal pain, Hematochezia Providers: Deandra Nguyen MD Referring MD: Deandra Nguyen MD Medicines: See the Anesthesia note for documentation of the administered medications Patient Profile: Refer to note in patient chart for documentation of history and physical. Last Colonoscopy: 2012. Complications: No immediate complications. Procedure: Pre-Anesthesia Assessment: - see anesthesia note After I obtained informed consent, the scope was passed under direct vision. Throughout the procedure, the patient's blood pressure, pulse, and oxygen saturations were monitored continuously. The pediatric colonoscope was introduced through the anus and advanced to the cecum, identified by the appendiceal orifice, ileocecal valve and palpation. The colonoscopy was performed without difficulty. The patient tolerated the procedure well. The quality of the bowel preparation was adequate. Scope In: 1:25:32 PM Scope Withdrawal Time 0 hours 6 minutes 43 seconds Scope Out: 1:38:43 PM Total Procedure Duration Time 0 hours 13 minutes 11 seconds Findings: The perianal and digital rectal examinations were normal. Non-bleeding external and internal hemorrhoids were found. Impression: - Non-bleeding external and internal hemorrhoids. - No specimens collected. Recommendation: - Repeat colonoscopy in 10 years for screening purposes. - Return to primary care physician PRN. - Continue present medications. Procedure Code(s): --- Professional --- 95319, Colonoscopy, flexible; diagnostic, including collection of specimen(s) by brushing or washing, when performed (separate procedure) Diagnosis Code(s): --- Professional --- K64.8, Other hemorrhoids R10.30, Lower abdominal pain, unspecified CPT copyright 2017 [employer]. All rights reserved. The codes documented in this report are preliminary and upon precinct police lieutenant review may be revised to meet current compliance requirements. MD Deandra Chan MD 11/20/2020 1:44:53 PM This report has been signed electronically. Number of Addenda: 0 Note Initiated On: 11/20/2020 1:18 PM
--- NOTE | 2020-11-20 13:46 | OP.CCLET_ITS ---
11/20/2020 Isidro Terry Md Re : Colonoscopy procedure for Christa Davis [place] This procedure was performed on Friday, November 20, 2020. My impressions and recommendations are as follows: Impressions : - Non-bleeding external and internal hemorrhoids. - No specimens collected. Recommendations : - Repeat colonoscopy in 10 years for screening purposes. - Return to primary care physician PRN. - Continue present medications. My findings are described in the full procedure note, which is enclosed. If I can be of further assistance, please feel free to contact me at Doctor phone number(s): , Work: . Sincerely, MD Deandra Chan MD 11/20/2020 1:44:53 PM This report has been signed electronically.
[2020-11-20 13:51] VITALS: BP 132/56; BP 153/93; PULSE 67; RESP 16; O2SAT 94
[2020-11-20 13:56] VITALS: BP 142/61; BP 153/93; PULSE 65; RESP 16; O2SAT 96
[2020-11-20 13:57] VITALS: BP 153/93; BP 154/71; PULSE 60; RESP 16; TEMP 36.1; O2SAT 98
[2020-11-20 14:19] VITALS: BP 153/93
== END 2020-11-20 14:20 | disposition home or self-care (01) ==
LOC: EN 11:36 → AC 11:37
PROVIDERS: PCP Family Medicine; Referring Provider Surgery; Visit Provider Surgery
PROC: 0DJD8ZZ Inspection of Lower Intestinal Tract, Via Natural or Artificial Opening Endoscopic (ICD-10-PCS; CPT 45378; principal; 2020-11-20 12:40)
DX: K64.8 Other hemorrhoids (principal); K92.1 Melena; R10.31 Right lower quadrant pain; R10.32 Left lower quadrant pain; I25.2 Old myocardial infarction; Z86.16 Personal history of COVID-19
CPT/HCPCS: 45378; 87426; C9803; J7050; J7120

== ENCOUNTER 2020-11-24 10:00 | Outpatient (RCR) | payer MEDICARE, SELFPAY ==
[2020-08-31 07:42] VITALS: BMI 40.8
--- NOTE | 2020-11-14 13:51 | HP.PTEVAL_ITS ---
Patient's Visit Information LESLIE AGUIRRE is a 65 year old F referred to Physical Therapy by Dr. Isidro Terry MD with a diagnosis of L lateral hip pain and L knee pain. Date of Evaluation: 11/14/20 Physical Therapist: TALIA Kessler - Visit Plan Frequency: 2x /Week Duration: 6 Weeks Plan: 2X/ week for 6 weeks for centralization of symptoms using extension principle, postural exercises, neutral spine core stability, L hip, knee and ankle strengthening, gait training, functional activities with HEP. HEP: prone to CAROL ANN and standing extension over a mat table - Subjective Pt reports that her R hip is painful. She has allergies and starts sneezing in the morning and gets pain through the L hip. She really does not have any knee pain now. B hip replacements. L was done in 2019. If she walks a lot and if she goes up and down the steps she will have L hip pain. She wants to start a walking program but needs to start slow. She had therapy after her L THR and it was doing well. Her L hip feels weak now. It is hard when she turns over in bed. The pain is on the side of her hip. She has a little pain sitting here but she was standing on it before she came here. It generally hurts more in standing. She had an x-ray done on the L hip a few weeks ago and was told it is fine. She has 4 steps down to apartment with a railing and she goes down on the R foot and going up she leads with her R foot also. No falls and no AD. - Pain L hip pain Pain Intensity (Out of 10): 5 Comment: with Tylenol - Objective Gait: Walks with decrease stance time on the R LE with R foot eversion. Pt has WBOS as well. Stairs: up and down recip with 1 hand rail but does have to pull self up the stairs when ascending with the L foot leading. Pt is able to heel and toe raise but toe raises increased L lateral hip pain. Sit to stand: able to get out of a chair without using her arms. LE MMT: R hip flex 4-/5 and L hi p flex 3-/5, R knee ext 4/5 and L 4/5, B knee flex 4-/5, R hip abd 4/5 and L hip abd 3+/5, B hip ext 3-/5. Pt is able to bridge with 1/2 normal ROM. Palpation: tender along the L piriformis. Tight L hip flexor. + SLUMP test on the L for pain in her L hip. -SLR B. Prone to CAROL ANN.... increase pain with CAROL ANN. Did X 10 and had less pain the closer to 10 she got. Standing extension over mat table X 10... no pain. After the above the pt had slightly less L hip pain. Instructed pt in Lumbar towel roll for good posture. - Goals Goal 1:: I HEP Goal Time Frame: 4-6 Weeks Goal 2:: Decrease L hip pain to 1/10 with ADL's and standing Goal Time Frame: 4-6 Weeks Goal 3:: Increase L hip strength by 1/2 muscle grade (at the time of inital eval: (LE MMT: R hip flex 4-/5 and L hip flex 3-/5, R knee ext 4/5 and L 4/5, B knee flex 4-/5, R hip abd 4/5 and L hip abd 3+/5, B hip ext 3-/5). Goal Time Frame: 4-6 Weeks Goal 4:: Pt to be able to go up and down the stairs recip without having to pull self up with the hand rail Goal Time Frame: 4-6 Weeks Goal 5:: Pt to be able to walk on heels and toes without having L hip pain Goal Time Frame: 4-6 Weeks - Rehabilitation Potential Rehabilitation Potential: Good - Anticipated Interventions Patient/Client Instruction: Educate patient on: Condition, Plan of Care For the Purpose of:: To decrease pain, To increase ROM, To improve nutrient delivery to tissue, To improve muscle performance and motor function, To improve ability to perform ADL's, To increase tolerance to activity/condition/position, To improve performance and independence with ADL's, To improve ability of physical actions for home/community/work/leisure, To improve gait and locomotor functions, To improve health of tissue, To decrease soft tissue restriction, To improve safety with gait Therapeutic Exercise to Include: Strength training, Postural training, Gait and locomotor training, Active ROM, Dynamic Lumbar Stabilization, Delio Exercises For the Purpose of:: To decrease pain, To increase ROM, To improve nutrient delivery to tissue, To improve muscle performance and motor function, To improve ability to perform ADL's, To improve performance and independence with ADL's, To improve ability of physical actions for home/community/work/leisure, To improve gait and locomotor functions, To improve health of tissue, To increase flexibility/ROM Functional Training to Include: Gait training For the Purpose of:: To improve gait and locomotor functions Manual Therapy Techniques to Include: Passive ROM, Soft tissue mobilization For the Purpose of:: To decrease pain, To increase ROM, To improve nutrient delivery to tissue, To improve muscle performance and motor function, To improve ability to perform ADL's, To improve health of tissue, To decrease soft tissue restriction, To increase flexibility/ROM Thank you for the opportunity to evaluate your patient. For Medicare and Medicare HMO plans, please review the plan of care and approve it. It will need to be FAXED BACK to us at [phone] for Medicare purposes. For Medicare only, by signing this I certify the plan of care. Please let me know if there are questions or concerns regarding this plan of care. Physician Signature: Date:
--- NOTE | 2020-11-24 10:34 | HP.PTDCSUM ---
It has been my pleasure to treat LESLIE AGUIRRE referred by Dr. Isidro Terry MD, with the diagnosis of L lateral hip pain and L knee pain for a total of 2 visit(s). Discharge Date: 11/24/20 Please see the following information for a summary of their discharge status. Subjective: Pt reports that her hip is much better and that she is doing her exercises 2 X/ day and it has helped. She reports that she can cross her leg over now. Pt reports that she wants a HEP and be done with PT because she knows she just has to exercise. L hip pain Pain Intensity (Out of 10): 5 % Improvement: 95 Objective/Function: Strength goals not assessed due to completed last visit. Pt reports that she understands printed out HEP (see above exercises in ther-ex section) Goal 1:: I HEP Goal Progress: Goal Met Goal 2:: Decrease L hip pain to 1/10 with ADL's and standing Goal Progress: Goal Met Goal 3:: Increase L hip strength by 1/2 muscle grade (at the time of inital eval: (LE MMT: R hip flex 4-/5 and L hip flex 3-/5, R knee ext 4/5 and L 4/5, B knee flex 4-/5, R hip abd 4/5 and L hip abd 3+/5, B hip ext 3-/5). Goal 4:: Pt to be able to go up and down the stairs recip without having to pull self up with the hand rail Goal 5:: Pt to be able to walk on heels and toes without having L hip pain Plan: DC PT to HEP Discharge Comments: DC PT to HEP If there are questions or concerns regarding this patient's physical therapy, please feel free to call me at [phone]. Thank you for the referral of this patient. Sincerely, Gracie Khan, MPT Balance/Gait/Functional tests - Balance/Special Test Scores Lower Extremity Functional Score: 60
== END 2020-11-24 14:04 | disposition home or self-care (01) ==
LOC: PT 10:00
PROVIDERS: PCP Family Medicine; Referring Provider Family Medicine; Visit Provider Family Medicine
DX: M25.562 Pain in left knee (principal); M25.552 Pain in left hip
CPT/HCPCS: 97110; 97162

== ENCOUNTER 2020-12-10 13:51 | Emergency (ER) | payer MEDICARE, SELFPAY ==
[2020-12-10 13:51] VITALS: BP 165/88; PULSE 76; RESP 16; TEMP 36.3; O2SAT 93; BMI 39.6
--- NOTE | 2020-12-10 15:26 | ED.VIS.LOWEX ---
HPI History of Present Illness Chief Complaint: Lower Extremity Injury Detail of Chief Complaint: Atraumatic left knee pain Informant: patient Occured/Mechanism Mechanism/Context: No injury Onset/Context/Timing Onset: Days Context: Gradual Onset Timing: Continuous Current Severity: Mild Maximum Severity: Mild Associated Symptoms Associated Symptoms: Negative for Parasthesia, Weakness and Loss of Funtion Narrative Narrative: 65-year-old female has had bilateral hips replaced. States that since Friday she has had atraumatic left knee pain and mild swelling. Denies any falls or trauma. No fever or chills. No prior history or surgery on the left knee. Prior similar symptoms: No Recent Illness/Hospitalization: No PFSH PFS Medical History ? r kidney nodule ct of abd Anaphylactic reaction Anxiety Arthritis Cardiology follow-up encounter Chest pain COPD (chronic obstructive pulmonary disease) Depression History of diverticulitis History of echocardiogram History of heart attack History of stress test Kidney stone Left rotator cuff tear Left shoulder pain Normal stress echocardiogram Osteoarthritis Shortness of breath on exertion varicose veins Wears glasses Home Medications loratadine 10 mg PO DAILY PRN 05/14/17 [History Last Taken Unknown] meloxicam 15 mg tablet 7.5 mg PO BID tab 02/10/18 [History Last Taken 11/25/19] multivitamin 1 tab PO DAILY 02/10/18 [History Last Taken 11/25/19] omeprazole magnesium 20 mg tablet,delayed release 20 mg PO DAILY 04/02/18 [History Last Taken 11/20/20] escitalopram oxalate 5 mg PO DAILY 11/26/19 [History Last Taken 11/25/19] albuterol sulfate 90 mcg/actuation aerosol inhaler 2 puff INHALATION Q6H PRN 07/18/20 [History Last Taken 11/20/20] fluticasone furoate 100 mcg-vilanterol 25 mcg/dose inhalation powder 1 inh INHALATION DAILY #60 ea 08/31/20 [Rx Last Taken Unknown] Allergy/AdvReac Type Severity Reaction Status Date / Time Cacsemu-Ikt-Poq Reductase Allergy Severe Anaphylaxis Verified 11/16/20 14:06 Inhibitor atorvastatin [From Lipitor] Allergy Anaphylaxis Verified 11/16/20 14:06 Family History Father Stomach cancer Heart problem Mother Diabetes Brother Diabetes Sister Breast cancer Surgical History H/O: hysterectomy History of hip replacement History of total right hip replacement Hx of cholecystectomy Social History housing: apartment current occupational status: employed pets and animals: No Smoking Status: Never smoker second hand exposure: No alcohol intake: never substance use type: does not use ROS ROS ED ROS Narrative Denies recent illness. Review of Systems ROS Unobtainable: Denies due to encephalopathy Constitutional Constitutional ED: Denies chills or fever(s) Eyes Eyes: Denies change in vision ENT ENT ED: Denies ear pain or sore throat Cardiovascular Cardiovascular: Denies chest pain Respiratory/Chest Respiratory/Chest: Denies dyspnea Gastrointestinal Gastrointestinal: Denies abdominal pain, diarrhea, nausea or vomiting Genitourinary Genitourinary ED: Denies dysuria Musculoskeletal Musculoskeletal: Denies myalgias Integumentary Denies rash Neurologic Neurologic: Denies headache(s) Psychiatric Psychiatric: Denies depression Endocrine Endocrinology: Denies polyuria Hematologic/Lymphatic Hematologic/Lymphatic: Denies easy bruising Allergic/Immunologic Allergic/Immunologic ED: Denies urticaria EXAM Physical Exam Narrative Exam Narrative: Female no acute distress. Vital signs stable afebrile. Patient does not look septic or toxic. Lungs are clear. Heart regular rhythm. Abdomen soft nontender. Her left knee is mildly tender mildly swollen. There is no redness or warmth. No signs of a septic joint. No cellulitis. She has decreased range of motion of left knee due to discomfort. The left ankle and hip are nontender. Dorsi plantar flexion intact of the left foot. Right lower extremity is unremarkable. Const Vital Signs: 12/10/20 13:51 Temperature 97.4 F L Temperature Source Temporal Pulse Rate 76 Respiratory Rate 16 Blood Pressure 165/88 H Blood Pressure Mean 113 Pulse Ox 93 Oxygen Delivery Method Room Air Positive well nourished, well developed and obese; Negative for cachectic, contractures or unkempt General Appearance ED: well developed and NAD; Negative for unkempt, cachectic or contractures Nutritional Appearance: obese; Negative for cachectic HEENT normocephalic and atraumatic; Negative for trauma or tenderness Eyes PERRL Neck full ROM and No supple Chest Wall inspection of chest normal and palpation of chest normal Resp normal respiratory effort, no retractions and clear to auscultation bilaterally Auscultation: Negative for rales, rhonchi or wheezes Cardio regular rate, regular rhythm, S1 normal heart sound, S2 normal heart sound and no murmurs GI non-tender, non-distended and no masses Auscultation: normoactive bowel sounds Palpation: soft; Negative for tender or guarding Back/Spine no CVA tenderness General Back: Negative for CVA tenderness Cervical Spine: Negative for cervical spine tenderness Extremity normal to inspection and full ROM Extremity Narrative: Except left knee mild swelling. No redness or warmth. No cellulitis. No septic joint. Decreased range of motion due to pain. Left hip and ankle are nontender normal dorsi plantar flexion left foot. Normal sensation. Neuro oriented x3 Sensorium / Orientation: alert, oriented to person, oriented to place and oriented to time; Negative for orientation impaired, confused, lethargic or stuporous Motor Exam: strength 5/5 throughout Psych mental status grossly normal Appearance: Negative for unkempt Skin no wounds Lesions: no lesions Rashes: no rashes Trauma: Negative for abrasion MDM MDM MDM Narrative Medical decision making narrative: 65-year-old female prior bilateral hip replacements with atraumatic left knee pain and swelling. Clinical suspicion is arthritis. X-ray being obtained. She did not anything for pain. Repeat exam at 4:15 PM no change. No signs of infection. Patient I went over x-ray. The bones of her x-rays are look good there does appear to be an effusion. But there is no signs of septic joint. She was offered but deferred pain medication deferred crutches or a walker. Said she will use Tylenol at home and follow-up if this is not improving. She and I discussed the option of the potential joint injection if this is not improving. Radiography Diagnostic Testing: Radiology Impression Knee X-Ray 12/10/20 15:52 IMPRESSION: There is a moderate volume joint effusion.There is mild degenerative arthrosis of the medial femorotibial compartment. Electronically Signed: Deni Randall MD at 16:10 EDT , Service support , Discharge Plan Triage Chief Complaint: Lower Extremity Injury ED Provider: Jean Metcalf Dx/Rx/DC Orders Clinical Impression: Effusion of knee joint, left Instructions: ED Knee Effusion Prescriptions: No Action multivitamin [Multiple Vitamins] tablet 1 tab PO DAILY RF: 0 Prilosec OTC 20 mg tablet,delayed release (DR/EC) 20 mg PO DAILY RF: 0 albuterol sulfate [ProAir HFA] 90 mcg/actuation HFA aerosol inhaler 2 puff inhalation Q6H PRN (Reason: SOB) RF: 0 Breo Ellipta 100-25 mcg/dose blister with device 1 inh inhalation DAILY Qty: 60 RF: 5 loratadine 10 MG capsule 10 mg PO DAILY PRN (Reason: Allergies) RF: 0 meloxicam 15 mg tablet 7.5 mg PO BID RF: 0 escitalopram oxalate 5 MG tablet 5 mg PO DAILY RF: 0 Primary Care Provider: Isidro Terry Referrals: Isidro Terry MD [Primary Care Provider] - 1 Week if not improving Activity Restrictions/Additional Instructions: Ice and elevate your left knee to decrease pain and swelling. Tylenol for pain. Motrin to decrease pain and inflammation. Follow-up with your doctor if not improving. They may need to have you see an orthopedic physician to have the fluid drained off the knee and possibly have an injection of steroids. Disposition Disposition: Home, Self Care
--- NOTE | 2020-12-10 15:52 | RAD_ITS ---
STUDY: XR Knee Complete 4 Views or More 12/10/2020 4:09 PM REASON FOR EXAM: Female, 65 years old. PAIN TECHNIQUE: XR Knee Complete 4 Views or More COMPARISON: None. FINDINGS: Normal visualized distal femur. Normal visualized proximal tibia and fibula. Normal proximal tibiofibular articulation. There is mild degenerative arthrosis of the medial femorotibial compartment. Normal lateral femorotibial compartment. Normal patellofemoral articulation. There is a moderate volume joint effusion. The soft tissue structures are unremarkable. RAD/Knee 4 or More Views IMPRESSION: There is a moderate volume joint effusion.There is mild degenerative arthrosis of the medial femorotibial compartment. Electronically Signed: Deni Randall MD at 16:10 EDT , Service support ,
[2020-12-10 16:34] VITALS: BP 157/83; PULSE 67; RESP 17; O2SAT 95
== END 2020-12-10 16:36 | disposition home or self-care (01) ==
PROVIDERS: Emergency Provider Emergency Medicine; PCP Family Medicine
DX: M25.462 Effusion, left knee (principal); E66.9 Obesity, unspecified; J44.9 Chronic obstructive pulmonary disease, unspecified; F41.9 Anxiety disorder, unspecified; F32.9 Major depressive disorder, single episode, unspecified; I25.2 Old myocardial infarction; Z79.1 Long term (current) use of non-steroidal anti-inflammatories (NSAID); Z96.643 Presence of artificial hip joint, bilateral
CPT/HCPCS: 73564; 99282

== ENCOUNTER → 2021-01-03 15:04 | Outpatient (CLI) | payer MEDICARE, SELFPAY ==
--- NOTE | 2021-01-03 15:09 | RAD_ITS ---
STUDY: X-RAY CHEST REASON FOR EXAM: Female, 65 years old. Sob TECHNIQUE: PA and lateral views of the chest. COMPARISON: Comparison is made with prior examination dated 10/21/2019. FINDINGS: Azygos lobe. Normal variant. There is no demonstrated pleural abnormality. Normal size heart. Normal mediastinum and favio. Normal visualized pulmonary arteries. There is atherosclerotic tortuosity of the aortic arch and descending thoracic aorta. There are diffuse degenerative changes of the visualized thoracic spine. Normal visualized ribs, clavicles, and shoulders. There is no demonstrated abnormality of the visualized soft tissue structures of the upper abdomen. RAD/Chest PA and Lateral IMPRESSION: No acute abnormality is seen. Electronically Signed: Arturo Lomeli MD at 15:54 EDT , Service support ,
[2021-01-03 16:43] LABS: Absolute Lymphocyte Count 1.91 X10^3/uL (0.83-4.51); Absolute Neutrophil Count 5.7 X10^3/uL (2.0-7.7); Basophil# 0.07 X10^3/uL; Basophil% 0.8 % (0-1); Eosinophil# 0.28 X10^3/uL; Eosinophils% 3.3 % (0-5); Hematocrit 39.2 % (37-47); Hemoglobin 13.1 g/dL (12.0-15.0); Lymphocyte # 1.91 X10^3/ul (0.83-4.51); Lymphocyte % 22.2 % (19-41); Mean Corp Hgb Conc 33.4 g/dL (32-36); Mean Corpuscular Hgb 32.3 pg (27.0-32.0); Mean Corpuscular Volume 96.8 fL (81-99); NRBC Flagged by Analyzer 0 % (0-5); Neutrophil # 5.69 X10^3/uL (2.7-7.7); Neutrophil % 66.2 % (47-70); Platelet Count 347 K/mm3 (150-450); RBC Distribution Width CV 12.6 % (11.6-14.6); RBC Distribution Width SD 45.1 fl (35.1-43.9); Red Blood Count 4.05 M/mm3 (4.2-5.4); White Blood Count 8.6 K/mm3 (4.4-11.0)
[2021-01-03 17:13] LABS: BNP,B-Type NATRIURETIC PEPTIDE 54.5 pg/mL (0-100)
[2021-01-03 17:19] LABS: Anion Gap 7 (5-15); BUN 21 mg/dL (7-18); BUN/Creat Ratio 26.9 RATIO (10-20); Calcium,Total 8.8 mg/dL (8.5-10.1); Chloride 111 mmol/L (98-107); Creatinine, Serum 0.78 mg/dL (0.55-1.02); EST Glomerular Filtration Rate 79 mL/min (>60); Est Glom Filt Rate - Afr Amer 95 mL/min (>60); Glucose 121 mg/dL (74-106); Potassium 3.6 mmol/L (3.5-5.1); Sodium Level 143 mmol/L (136-145)
== END ==
PROVIDERS: PCP Family Medicine; Referring Provider Internal Medicine Cardiovascular Disease; Visit Provider Internal Medicine Cardiovascular Disease
DX: R06.02 Shortness of breath (principal); R07.9 Chest pain, unspecified
CPT/HCPCS: 36415; 71046; 80048; 83880; 85025

== ENCOUNTER 2021-01-08 06:56 | Day surgery (SDC) | payer MEDICARE, SELFPAY ==
[2021-01-05 07:57] VITALS: BMI 39.9
[2021-01-08 09:00] LABS: Base Excess -1 mmol/L (-2 to +2); Bicarbonate 23.5 mmol/L (22-26); Blood Gas Specimen Type ART; PO2 56 mmHG (75-100); SO2 89 % (95-99); Total Carbon Dioxide 25 mmol/L; pCO2 38.4 mmHg (35-45)
[2021-01-08 09:06] LABS: Base Excess -3 mmol/L (-2 to +2); Bicarbonate 22.6 mmol/L (22-26); Blood Gas Specimen Type ART; PO2 63 mmHG (75-100); SO2 91 % (95-99); Total Carbon Dioxide 24 mmol/L; pCO2 38.3 mmHg (35-45); pH 7.38 (7.35-7.45)
[2021-01-08 09:06] LABS: Blood Gas Specimen Type VEN; VBG BASE EXCESS 0 mmol/L (-1.0-3.5); VBG Bicarbonate 25 mmol/L (22-26); VBG PO2 36 mmHg (25-40); VBG SO2 68 % (50-70); VBG TCO2 27 mmol/L (23-33); VBG pCO2 42.5 mmHg (41-51); VBG pH 7.38 (7.32-7.42)
[2021-01-08 09:10] LABS: Blood Gas Specimen Type VEN; VBG BASE EXCESS -1 mmol/L (-1.0-3.5); VBG Bicarbonate 24 mmol/L (22-26); VBG PO2 36 mmHg (25-40); VBG SO2 67 % (50-70); VBG TCO2 26 mmol/L (23-33); VBG pCO2 42.4 mmHg (41-51); VBG pH 7.37 (7.32-7.42)
--- NOTE | 2021-01-08 09:15 | CL.D_ITS ---
Patient Name: LESLIE AGUIRRE Study Date: 01/08/2021 Performing: Chino Ferrara MD Ht: 61.81 inches 157 cm : 1955 Wt: 218.26 lbs 99 kg Age: 65 Gender: female BSA: 1.98 PROCEDURE(S) PERFORMED PO48-DMD/LHC/COR/LV CLINICAL PROFILE AND INDICATIONS Indications: Suspected CAD Heart Failure: None Stress/Imaging Date: 12/22/2020 CAD Presentations: Symptom unlikely to be ischemic. CONCLUSIONS Normal coronary arteries Normal LV size, wall motion,and systolic function Right heart pressures - Normal RECOMMENDATIONS Medical therapy DESCRIPTION OF PROCEDURE The patient arrived to the procedure lab. The risks and benefits of the procedure as well as a full d escription of our services here and current unavailability of surgical backup were fully explained to the patient and/or their significant other prior to the catheterization. The Timeout was completed, verifying the correct patient and procedure. The patient's procedural site was prepped and draped in the usual fashion. Local anesthetic was given subcutaneously to right radial region with Lidocaine 2% . Local anesthetic was given subcutaneously to right groin region with Lidocaine 2%. Using a modified Seldinger technique, arterial access was obtained via the right femoral artery, a 5Fr sheath was ins erted. Venous access was obtained via the right brachiocephalic vein, with Micropuncture set Left Cor onary Artery selective angiography was performed in multiple views using a 5 Fr. JL4 catheter. Right Coronary Artery selective angiography was then performed in multiple views using a 5 Fr. 3DRC (Damian) catheter. Left Ventriculography was performed in GUTIERREZ projection using a 5 Fr. Pigtail catheter. LV to AO pullback pressures were then recorded. A 7Fr thermal dilution catheter was insert ed and right heart pressures were recorded, it was then advanced to PA position for cardiac outputs. O2 saturations were then obtained. Thermal dilution cardiac outputs were then recorded. The Thermal d ilution catheter was then removed.Contrast was injected through the sheath and the Right Iliac and Fe moral artery were assessed for possible closure device.The arterial sheath was pulled and a Mynx clos ure device was deployed for hemostasis. The venous sheath was then pulled and manual compression appl ied until hemostasis achieved CORONARY ANGIOGRAPHY DOMINANCE: Right Dominant LEFT HEART ASSESSMENT Left Ventricular Ejection Fraction: by LV Gram 65 % Normal LV wall motion Normal Left Ventricular systolic function Normal Left Ventricular systolic function RIGHT HEART ASSESSMENT Thermal CO: 6.62 Thermal CI: 3.34 Altagracia CO: 6.43 Altagracia CI: 3.25 PW: 15 PA: 21 RV: 32/2 11 RA: 01/30 7 PVR: 73 SVR: 1221 Right Heart pressures - normal LEFT MAIN: Angiographically normal LEFT ANTERIOR DESCENDING ARTERY: Angiographically normal CIRCUMFLEX ARTERY: Angiographically normal RIGHT CORONARY ARTERY: Angiographically normal COMPLICATIONS No Complications PROCEDURE MEDICATIONS Fentanyl 50 mcg IV Versed 1 mg IV Versed 1 mg IV Versed 1 mg IV SUMMARY OF HEMODYNAMIC DATA Time AIR REST ECG 07:13:49 AO 165/83 (108) SA 08:49:02 LV 169/6, 10 08:55:06 LV 162/7, 9 08:55:11 LV 160/10, 14 08:56:03 LVp 160/11, 15 08:56:06 AOp 170/83 (122) 08:56:11 RA 11 (7) SV 09:01:21 RV 32/2, 11 09:01:42 PA 30/ (21) PA 09:02:27 PW (15) PV 09:02:42 Type SV CO (l/m) CI (l/m/ HR Time AIR REST Thermal 106.80 6.62 3.34 62 07:13:49 Altagracia 103.70 6.43 3.25 62 07:13:49 Label % O2 Pres/Loc Time AIR REST RA 68 SV 09:09:38 PA 67 PA 09:09:42 AO 91 PV 09:09:49 Signed By Chino Ferrara MD On 01/08/2021 09:14:36 Chino Ferrara MD
== END 2021-01-08 11:45 | disposition home or self-care (01) ==
LOC: CLSP 06:58
PROVIDERS: Referring Provider Internal Medicine Cardiovascular Disease; Visit Provider Internal Medicine Cardiovascular Disease
DX: R07.9 Chest pain, unspecified (principal); R06.02 Shortness of breath; J44.9 Chronic obstructive pulmonary disease, unspecified; M19.90 Unspecified osteoarthritis, unspecified site; K21.9 Gastro-esophageal reflux disease without esophagitis; F41.9 Anxiety disorder, unspecified; Z79.1 Long term (current) use of non-steroidal anti-inflammatories (NSAID); Z79.899 Other long term (current) drug therapy; Z86.16 Personal history of COVID-19; Z96.641 Presence of right artificial hip joint
CPT/HCPCS: 82803; 93460; 99152; 99153; C1760; J7040; Q9967; C1751; C1769; C1894

== ENCOUNTER 2021-04-11 13:59 | Outpatient (CLI) | payer MEDICARE, SELFPAY | END 2021-04-11 23:59 | disposition short-term general hospital (02) | LOC: MFPLAB 14:01 | PROVIDERS: PCP Family Medicine; Referring Provider Family Medicine; Visit Provider Family Medicine | DX: B34.9 Viral infection, unspecified (principal) | CPT/HCPCS: 87635; U0003; U0005 ==

== ENCOUNTER 2021-04-30 15:38 | Outpatient (CLI) | payer MEDICARE, SELFPAY ==
[2021-04-30 15:41] LABS: Mucous, Urine 0 SEEN /hpf (<or=2+)
[2021-04-30 17:58] LABS: Absolute Lymphocyte Count 2.13 X10^3/uL (0.83-4.51); Absolute Neutrophil Count 5.8 X10^3/uL (2.0-7.7); Basophil# 0.07 X10^3/uL; Basophil% 0.8 % (0-1); Eosinophil# 0.23 X10^3/uL; Eosinophils% 2.6 % (0-5); Hematocrit 38.4 % (37-47); Hemoglobin 12.6 g/dL (12.0-15.0); Lymphocyte # 2.13 X10^3/ul (0.83-4.51); Mean Corp Hgb Conc 32.8 g/dL (32-36); Mean Corpuscular Hgb 32.2 pg (27.0-32.0); Mean Corpuscular Volume 98.2 fL (81-99); Mean Platelet Vol. 10.3 fl (6.2-12.0); Monocyte# 0.63 X10^3/uL; Monocyte% 7.1 % (0-10); NRBC Flagged by Analyzer 0 % (0-5); Neutrophil # 5.79 X10^3/uL (2.7-7.7); Neutrophil % 65.2 % (47-70); Platelet Count 341 K/mm3 (150-450); RBC Distribution Width CV 12.4 % (11.6-14.6); RBC Distribution Width SD 44.5 fl (35.1-43.9); Red Blood Count 3.91 M/mm3 (4.2-5.4); White Blood Count 8.9 K/mm3 (4.4-11.0)
[2021-04-30 18:02] LABS: Color, Urine Yellow (Yellow); Glucose, Dipstick Normal (Normal); Ketone-Dipstick 5 mg/dl (Negative); Leukocyte Esterase-Dipstick 500 /ul (Negative); Nitrite-Dipstick Negative (Negative); Occult Blood-Urine 50 /ul (Negative); Protein-Dipstick Negative (Negative); Specific Gravity, Urine 1.025 (1.002-1.030); Urine Bilirubin Dipstick Negative (Negative); Urine Clarity Sl. Cloudy (Clear); Urine Urobilinogen Normal (Normal)
[2021-04-30 18:39] LABS: Amorphous Sediment 1+ URATE; Bacteria RARE /hpf (None Seen); Red Blood Cells-Urine 0-5 SEEN /hpf (0-5); Squamous Epithelial Cells - UA 0-5 SEEN /hpf (5-10); White Blood Cells 50-100 SEEN /hpf (0-5)
[2021-04-30 18:44] LABS: BUN 20 mg/dL (7-18); Creatinine, Serum 0.98 mg/dL (0.55-1.02); Glucose 98 mg/dL (74-106)
[2021-04-30 18:45] LABS: ALB/GLOB Ratio 0.7 RATIO (0.9-2.4); AST(SGOT) 21 U/L (15-37); Alanine Aminotransfer ALT/SGPT 20 U/L (13-56); Albumin, Serum 3.3 g/dL (3.2-5.0); Alkaline Phosphatase 107 U/L (45-117); Anion Gap 4 (5-15); BUN/Creat Ratio 20.5 RATIO (10-20); Calcium,Total 8.6 mg/dL (8.5-10.1); Chloride 110 mmol/L (98-107); Cholesterol 164 mg/dL (200); EST Glomerular Filtration Rate 61 mL/min (>60); Est Glom Filt Rate - Afr Amer 73 mL/min (>60); Globulin 4.5 g/dL (2.2-4.2); High Density Lipoprotein 58 mg/dL; Potassium 3.8 mmol/L (3.5-5.1); Protein, Total 7.8 g/dL (6.4-8.2); Sodium Level 140 mmol/L (136-145); Thyroid Stim Hormone (TSH) 2.19 uIU/mL (0.358-3.74); Triglycerides 113 mg/dL; Very Low Density Lipoprotein 23 mg/dL (5-40)
== END 2021-04-30 23:59 | disposition home or self-care (01) ==
LOC: MFPLAB 15:40
PROVIDERS: PCP Family Medicine; Visit Provider Family Medicine
DX: I10 Essential (primary) hypertension (principal)
CPT/HCPCS: 36415; 80053; 80061; 81001; 84443; 85025

== ENCOUNTER 2021-05-08 09:08 | Outpatient (CLI) | payer MEDICARE, SELFPAY | END 2021-05-08 23:59 | disposition home or self-care (01) | LOC: LABSPEC 09:09 | PROVIDERS: PCP Family Medicine; Referring Provider Family Medicine; Visit Provider Family Medicine | DX: R82.81 Pyuria (principal) | CPT/HCPCS: 87086; 87088 ==

== ENCOUNTER 2021-06-22 13:31 | Outpatient (CLI) | payer MEDICARE, SELFPAY ==
[2021-07-03 12:00] LABS: Alternaria tenuis <0.10 kU/L (Class 0); Ash, White <0.10 kU/L (Class 0); Aspergillus fumigatus <0.10 kU/L (Class 0); Bermuda Grass <0.10 kU/L (Class 0); Birch <0.10 kU/L (Class 0); Black Walnut <0.10 kU/L (Class 0); Cat Hair / Dander,Stand 0.45 kU/L (Class I); Cedar, Mountain <0.10 kU/L (Class 0); Cladosporium herbarum <0.10 kU/L (Class 0); Clam <0.10 kU/L (Class 0); Cockroach, American <0.10 kU/L (Class 0); Codfish <0.10 kU/L (Class 0); Corn <0.10 kU/L (Class 0); Cottonwood <0.10 kU/L (Class 0); D farinae Mite 7.14 kU/L (Class IV); D pteronyssinus 6.82 kU/L (Class IV); Dog Epithelia 0.12 kU/L (Class 0/I); Egg, White <0.10 kU/L (Class 0); Elm, American White <0.10 kU/L (Class 0); Immunoglobulin E 199 IU/mL (6-495); Maple/Box Elder <0.10 kU/L (Class 0); Milk (Cow) 0.38 kU/L (Class I); Mulberry, White <0.10 kU/L (Class 0); Oak, White <0.10 kU/L (Class 0); Peanut <0.10 kU/L (Class 0); Pecan <0.10 kU/L (Class 0); Penicillium Notatum <0.10 kU/L (Class 0); Pigweed, Rough <0.10 kU/L (Class 0); Russian Thistle <0.10 kU/L (Class 0); SCALLOP <0.10 kU/L (Class 0); Sheep Sorrel <0.10 kU/L (Class 0); Shrimp <0.10 kU/L (Class 0); Soybean <0.10 kU/L (Class 0); Sycamore, American <0.10 kU/L (Class 0); Timothy Grass <0.10 kU/L (Class 0); Walnut, (Food) <0.10 kU/L (Class 0); Wheat <0.10 kU/L (Class 0)
[2021-07-03 16:50] LABS: SESAME SEED <0.10 kU/L (Class 0)
[2021-07-03 16:51] LABS: Mouse Urine <0.10 kU/L (Class 0)
== END 2021-06-22 23:59 | disposition home or self-care (01) ==
LOC: LAB 13:33
PROVIDERS: PCP Family Medicine; Referring Provider Otolaryngology; Visit Provider Otolaryngology
DX: T78.40XA Allergy, unspecified, initial encounter (principal)
CPT/HCPCS: 36415; 82785; 86003

== ENCOUNTER 2021-07-07 07:13 | Emergency (ER) | payer MEDICARE, SELFPAY ==
[2021-07-07 07:14] VITALS: BP 161/76; PULSE 73; RESP 24; TEMP 35.5; O2SAT 95; BMI 38.6
--- NOTE | 2021-07-07 07:25 | CT_ITS ---
STUDY: CT ABDOMEN AND PELVIS WITHOUT CONTRAST REASON FOR EXAM: Female, 65 years old. Right-sided flank pain. RADIATION DOSAGE (If Supplied By Facility): CTDIvol = ( 22.99 ) mGy, DLP = ( 1220.79 ) mGycm TECHNIQUE: Transaxial images were obtained from the dome of the diaphragm to the symphysis pubis without oral contrast, and without intravenous contrast. Sagittal and coronal images were reconstructed. Individualized dose optimization techniques were used for this CT. COMPARISON: 01/06/2015. FINDINGS: The visualized portions of lung bases demonstrate calcified granuloma in the right lower lobe. Calcified right hilar node. Normal heart size. Coronary calcifications. Mild calcifications of the aortic root. Normal liver. There is non-visualization of the gallbladder, which may be secondary to either contraction or a prior cholecystectomy. Normal spleen. Normal pancreas. Normal bilateral adrenal glands. Faint calcifications in the right kidney corresponding to previously described low-density lesion with previous CT. No evidence of hydronephrosis. Tiny calcification anterior to the right iliopsoas muscle on axial image 79 series 2 probably outside the ureter. Unremarkable left kidney. Normal visualized stomach. Normal small intestine. Fecal retention. No evidence of acute diverticulitis. The appendix is visualized and appears normal. Mild atherosclerotic calcifications of the abdominal aorta. Calcifications at the origin of the renal arteries bilaterally. Normal inferior vena cava. Normal retroperitoneum. The bladder is somewhat obscured by severe artifacts from bilateral hip arthroplasty. There is absence of the uterus consistent with a prior hysterectomy. Very small ventral hernia containing fat. Degenerative changes in the spine. CT/Abdomen/Pelvis without Cont IMPRESSION: 2 mm calcification in the course of the midright ureter probably outside the ureter. Nonobstructing stone is less likely. No evidence of hydronephrosis or otherwise urinary tract stones. Partially calcified right renal lesion not significantly changed in size since previous exam but further evaluation with nonemergent MRI with contrast is recommended. No focal acute inflammatory process. Electronically Signed: Jey Landers MD at 8:37 EDT ,
--- NOTE | 2021-07-07 07:27 | EDS_ITS ---
HPI History of Present Illness Chief Complaint: Back Informant: patient Narrative Narrative: 65-year-old female states that last evening around 2030 hrs. she began to have a dull pain in her right mid back. She states that as the evening has progressed and has become progressively more sharp. It feels better with getting up and walking. It is worse with certain touches. She notes nausea but no vomiting. She denies any hematuria or changes in stool pattern. Patient states that she has had a kidney stone in the past but this feels higher in her back. She denies any local trauma or straining to the back. She denies any radicular symptoms. [facility] Medical History (Updated 07/07/21 @ 08:[address] Jake Calabrese, DO) Anaphylactic reaction Anxiety Arthritis COPD (chronic obstructive pulmonary disease) Depression GERD (gastroesophageal reflux disease) History of diverticulitis Hx of cardiac arrest (01/2018) Hypertension Kidney stone Left rotator cuff tear Mild pulmonary arterial systolic hypertension Osteoarthritis Shortness of breath on exertion Varicose vein of leg Wears glasses Home Medications loratadine 10 mg PO DAILY PRN 05/14/17 [History Last Taken Unknown] meloxicam 15 mg tablet 7.5 mg PO BID tab 02/10/18 [History Last Taken 11/25/19] multivitamin 1 tab PO DAILY 02/10/18 [History Last Taken 11/25/19] escitalopram oxalate 5 mg PO DAILY 11/26/19 [History Last Taken 11/25/19] albuterol sulfate 90 mcg/actuation aerosol inhaler 2 puff INHALATION Q6H PRN 07/18/20 [History Last Taken 11/20/20] losartan 100 mg tablet 100 mg PO DAILY #90 tab 01/08/21 [Rx Last Taken Unknown] fluticasone furoate 100 mcg-vilanterol 25 mcg/dose inhalation powder 1 inh INHALATION DAILY #60 ea 03/27/21 [Rx Last Taken Unknown] diazepam 5 mg PO Q8 PRN #15 tab 07/07/21 [Rx Last Taken Unknown] hydrocodone-acetaminophen 1 tab PO Q6H PRN PRN 3 Days #12 tablet 07/07/21 [Rx Last Taken Unknown] Allergy/AdvReac Type Severity Reaction Status Date / Time Ijhmkpg-WKP-SxH Reductase Allergy Severe Anaphylaxis Verified 07/07/21 07:27 Inhibitor [Qqqgiia-Wiu-Qbj Reductase Inhibitor] Family History Father Stomach cancer Heart problem Mother Diabetes Brother Diabetes Sister Breast cancer Surgical History H/O: hysterectomy History of colonoscopy History of hip replacement History of total right hip replacement Hx of cholecystectomy Social History housing: apartment current occupational status: employed pets and animals: No Smoking Status: Never smoker second hand exposure: No alcohol intake: never substance use type: does not use ROS ROS ED Constitutional Constitutional ED: Denies chills or weight loss Eyes Eyes: Denies change in vision or diplopia ENT ENT ED: Denies ear pain, rhinorrhea or sore throat Cardiovascular Cardiovascular: Denies chest pain, orthopnea, palpitations or racing heartbeat Respiratory/Chest Respiratory/Chest: Denies cough, dyspnea or orthopnea Gastrointestinal Gastrointestinal: Reports nausea; Denies abdominal pain, diarrhea or vomiting Genitourinary Genitourinary ED: Denies dysuria, hematuria or urinary frequency Musculoskeletal Musculoskeletal: Reports back pain; Denies arthralgias or myalgias Integumentary Denies abscess or rash Neurologic Neurologic: Denies headache(s) or weakness Psychiatric Psychiatric: Denies anxiety, depression, suicidal ideation or suicidal thoughts Endocrine Endocrinology: Denies polydipsia, polyphagia or polyuria Allergic/Immunologic Allergic/Immunologic ED: Denies mouth swelling, tongue swelling or urticaria EXAM Physical Exam Const Vital Signs: 07/07/21 07:14 Temperature 96 F L Temperature Source Tympanic Pulse Rate 73 Respiratory Rate 24 H Blood Pressure 161/76 H Blood Pressure Mean 104 Pulse Ox 95 Oxygen Delivery Method Room Air Positive well nourished, well developed and obese General Appearance ED: well developed Nutritional Appearance: obese HEENT Reports normocephalic, head/scalp atraumatic, TM's clear and moist mucous membranes Negative for trauma Tympanic Membrane ED: Yes TM's clear Eyes PERRL and EOMs intact bilaterally Neck no lymphadenopathy, supple and no JVD Resp normal respiratory effort and clear to auscultation bilaterally Cardio regular rate, regular rhythm and no murmurs GI normal to inspection, nondistended, normoactive bowel sounds and non-tender Palpation: soft Back/Spine normal ROM Back/Spine Narrative: Patient notes some mild tenderness to palpation over the left mid to lower thoracic and right CVA area. There are no tissue texture changes to suggest underlying infection. Extremity normal to inspection General Extremety ED: Negative for edema General Extremity: Negative for edema Neuro oriented x3 and CN's II-XII intact bilaterally Sensorium / Orientation: alert Motor Exam: strength 5/5 throughout Psych mental status grossly normal Mood & Affect: Negative for depressed or tearful Skin no rashes or lesions noted and no wounds MDM MDM MDM Narrative Medical decision making narrative: IV was established the patient received pain and nausea medication. CBC shows a hemoglobin 11.9 platelet count 298. BMP with normal creatinine at 0.94 and a BUN of 25. Urinalysis shows contamination. She is asymptomatic from a urinary standpoint I do not think that this urine needs to be treated especially with the contamination. CT of the abdomen pelvis was negative for acute. At this point this is most likely musculoskeletal pain. I can write for some diazepam and hydrocodone. Would recommend heat gentle stretching follow-up with primary care if not improving return if worsening or concerns Lab Data Attestation: I reviewed the patient's lab results. Labs: Laboratory Results - last 24 hr 07/07/21 07/07/21 07/07/21 07:35 07:35 07:45 WBC 7.8 RBC 3.67 L Hgb 11.9 L Hct 34.8 L MCV 94.8 MCH 32.4 H MCHC 34.2 RDW Std Deviation 42.9 RDW Coeff of Juan Alberto 12.2 Plt Count 298 MPV 9.7 Immature Gran % (Auto) 0.300 Neut % (Auto) 56.0 Lymph % (Auto) 31.3 [place] % (Auto) 7.8 Eos % (Auto) 3.7 Baso % (Auto) 0.9 Absolute Neuts (auto) 4.4 Absolute Lymphs (auto) 2.45 Nucleated RBC % 0 Sodium 143 Potassium 3.9 Chloride 112 H Carbon Dioxide 26.0 Anion Gap 5 BUN 25 H Creatinine 0.94 Estim Creat Clear Calc 46.56 Est GFR (MDRD) Af Amer 77 Est GFR (MDRD) Non-Af 64 BUN/Creatinine Ratio 26.7 H Glucose 86 Calcium 8.6 Urine Color Yellow Urine Clarity Sl. Cloudy Urine pH 6.0 Ur Specific [place] 1.020 Urine Protein 30 H Urine Glucose (UA) Normal Urine Ketones Negative Urine Occult Blood 50 H Urine Nitrite Negative Urine Bilirubin Negative Urine Urobilinogen Normal Ur Leukocyte Esterase 500 H Urine RBC 5-10 SEEN Urine WBC 25-50 SEEN Ur Squamous Epith Cells 5-10 SEEN Urine Bacteria 2+ Urine Mucus 0 SEEN Radiography Diagnostic Testing: Clinical Impression(s) from Imaging Studies Abdomen/Pelvis CT 07/07/21 07:25 IMPRESSION: 2 mm calcification in the course of the midright ureter probably outside the ureter. Nonobstructing stone is less likely. No evidence of hydronephrosis or otherwise urinary tract stones. Partially calcified right renal lesion not significantly changed in size since previous exam but further evaluation with nonemergent MRI with contrast is recommended. No focal acute inflammatory process. Electronically Signed: Jey Landers MD at 8:37 EDT , Discharge Plan Triage Chief Complaint: Back ED Provider: Jake Calabrese Dx/Rx/DC Orders Clinical Impression: Acute flank pain Instructions: ED Flank Pain, Uncertain Cause Prescriptions: New diazepam [diazepam] 5 MG tablet 5 mg PO Q8 PRN (Reason: Muscle Spasm) Qty: 15 RF: 0 hydrocodone-acetaminophen [hydrocodone-acetaminophen] 1 TABLET tablet 1 tab PO Q6H PRN PRN (Reason: Pain) 3 Days Qty: 12 RF: 0 No Action multivitamin [Multiple Vitamins] tablet 1 tab PO DAILY RF: 0 albuterol sulfate [ProAir HFA] 90 mcg/actuation HFA aerosol inhaler 2 puff inhalation Q6H PRN (Reason: SOB) RF: 0 Breo Ellipta 100-25 mcg/dose blister with device 1 inh inhalation DAILY Qty: 60 RF: 11 loratadine 10 MG capsule 10 mg PO DAILY PRN (Reason: Allergies) RF: 0 meloxicam 15 mg tablet 7.5 mg PO BID RF: 0 escitalopram oxalate 5 MG tablet 5 mg PO DAILY RF: 0 losartan 100 mg tablet 100 mg PO DAILY Qty: 90 RF: 3 Primary Care Provider: Isidro Lozano Referrals: Schinner,Isidro E, MD [Primary Care Provider] - 3-5 Days if not improving Disposition Disposition: Home, Self Care
[2021-07-07 07:44] LABS: Absolute Lymphocyte Count 2.45 X10^3/uL (0.83-4.51); Absolute Neutrophil Count 4.4 X10^3/uL (2.0-7.7); Basophil# 0.07 X10^3/uL; Basophil% 0.9 % (0-1); Eosinophil# 0.29 X10^3/uL; Eosinophils% 3.7 % (0-5); Hematocrit 34.8 % (37-47); Hemoglobin 11.9 g/dL (12.0-15.0); Lymphocyte # 2.45 X10^3/ul (0.83-4.51); Lymphocyte % 31.3 % (19-41); Mean Corp Hgb Conc 34.2 g/dL (32-36); Mean Corpuscular Hgb 32.4 pg (27.0-32.0); Mean Corpuscular Volume 94.8 fL (81-99); Mean Platelet Vol. 9.7 fl (6.2-12.0); Monocyte# 0.61 X10^3/uL; Monocyte% 7.8 % (0-10); NRBC Flagged by Analyzer 0 % (0-5); Platelet Count 298 K/mm3 (150-450); RBC Distribution Width CV 12.2 % (11.6-14.6); RBC Distribution Width SD 42.9 fl (35.1-43.9); Red Blood Count 3.67 M/mm3 (4.2-5.4); White Blood Count 7.8 K/mm3 (4.4-11.0)
[2021-07-07] MEDS: Ondansetron 4 MG/2 ML Vial IV (07:46)
[2021-07-07] MEDS: Ketorolac 30 MG/ML Syringe IV (07:46)
[2021-07-07] MEDS: Morphine 4 MG/ML Syringe IV (07:46)
[2021-07-07 07:49] LABS: Mucous, Urine 0 SEEN /hpf (<or=2+)
[2021-07-07 07:52] LABS: Color, Urine Yellow (Yellow); Glucose, Dipstick Normal (Normal); Ketone-Dipstick Negative (Negative); Leukocyte Esterase-Dipstick 500 /ul (Negative); Nitrite-Dipstick Negative (Negative); Occult Blood-Urine 50 /ul (Negative); Protein-Dipstick 30 mg/dl (Negative); Urine Bilirubin Dipstick Negative (Negative); Urine Clarity Sl. Cloudy (Clear); Urine Urobilinogen Normal (Normal)
[2021-07-07 07:57] LABS: Anion Gap 5 (5-15); BUN 25 mg/dL (7-18); BUN/Creat Ratio 26.7 RATIO (10-20); Calcium,Total 8.6 mg/dL (8.5-10.1); Chloride 112 mmol/L (98-107); Creatinine, Serum 0.94 mg/dL (0.55-1.02); EST Glomerular Filtration Rate 64 mL/min (>60); Est Glom Filt Rate - Afr Amer 77 mL/min (>60); Estimated Creatinine Clearance 46.56 ml/min; Glucose 86 mg/dL (74-106); Potassium 3.9 mmol/L (3.5-5.1); Sodium Level 143 mmol/L (136-145)
[2021-07-07 08:20] LABS: Bacteria 2+ /hpf (None Seen); Red Blood Cells-Urine 5-10 SEEN /hpf (0-5); Squamous Epithelial Cells - UA 5-10 SEEN /hpf (5-10); White Blood Cells 25-50 SEEN /hpf (0-5)
[2021-07-07 09:05] VITALS: BP 151/83; PULSE 52; RESP 16; O2SAT 97
== END 2021-07-07 09:18 | disposition home or self-care (01) ==
PROVIDERS: Emergency Provider Emergency Medicine; PCP Family Medicine; Visit Provider Emergency Medicine
DX: R10.9 Unspecified abdominal pain (principal); J44.9 Chronic obstructive pulmonary disease, unspecified; I10 Essential (primary) hypertension; R11.0 Nausea; K21.9 Gastro-esophageal reflux disease without esophagitis; Z86.74 Personal history of sudden cardiac arrest
CPT/HCPCS: 74176; 80048; 81001; 85025; 99283; J7030; A4216; J2405

== ENCOUNTER → 2021-10-04 | Outpatient (CLI) | payer MEDICARE, SELFPAY ==
--- NOTE | 2021-10-04 15:12 | RAD_ITS ---
STUDY: XR Hips Bilateral with Pelvis when performed; REASON FOR EXAM: HIP PAIN left hip pain TECHNIQUE: 5 views of the pelvis and hip. COMPARISON: Pelvis and left hip x-ray 10/12/2020. FINDINGS: Surgical hardware acetabular and femoral components of hip prosthesis bilaterally appears in anatomic alignment, and unchanged. No fracture demonstrated. No dislocation at the hips. Degenerative changes at the lower lumbar spine. RAD/Hips B/L min 2 views w/ Pelvis IMPRESSION: Bilateral total hip arthroplasties. No evidence of fracture. Electronically Signed: Madison Roman MD at 8:05 EDT ,
[2021-10-04 18:11] LABS: Absolute Lymphocyte Count 2.09 X10^3/uL (0.83-4.51); Basophil# 0.07 X10^3/uL; Basophil% 0.8 % (0-1); Eosinophil# 0.22 X10^3/uL; Eosinophils% 2.4 % (0-5); Hematocrit 37.8 % (37-47); Hemoglobin 12.4 g/dL (12.0-15.0); Lymphocyte # 2.09 X10^3/ul (0.83-4.51); Lymphocyte % 22.8 % (19-41); Mean Corp Hgb Conc 32.8 g/dL (32-36); Mean Corpuscular Hgb 31.9 pg (27.0-32.0); Mean Corpuscular Volume 97.2 fL (81-99); Mean Platelet Vol. 10.3 fl (6.2-12.0); Monocyte# 0.75 X10^3/uL; Monocyte% 8.2 % (0-10); NRBC Flagged by Analyzer 0 % (0-5); Neutrophil # 5.98 X10^3/uL (2.7-7.7); Neutrophil % 65.4 % (47-70); Platelet Count 337 K/mm3 (150-450); RBC Distribution Width CV 12.1 % (11.6-14.6); RBC Distribution Width SD 43.6 fl (35.1-43.9); Red Blood Count 3.89 M/mm3 (4.2-5.4); White Blood Count 9.2 K/mm3 (4.4-11.0)
[2021-10-04 18:17] LABS: Glucose, Dipstick Normal (Normal); Ketone-Dipstick 5 mg/dl (Negative); Leukocyte Esterase-Dipstick 500 /ul (Negative); Nitrite-Dipstick Negative (Negative); Occult Blood-Urine 25 /ul (Negative); Protein-Dipstick 15 mg/dl (Negative); Urine Bilirubin Dipstick Negative (Negative); Urine Clarity Sl. Cloudy (Clear); Urine Urobilinogen 1 mg/dl (Normal)
[2021-10-04 18:25] LABS: Color, Urine Yellow (Yellow)
[2021-10-04 18:33] LABS: Red Blood Cells-Urine 0-5 SEEN /hpf (0-5); White Blood Cells 5-10 SEEN /hpf (0-5)
[2021-10-04 18:34] LABS: Bacteria 1+ /hpf (None Seen); Calcium Oxalate Crystals Ur 4+ /hpf (<or=2+); Squamous Epithelial Cells - UA 5-10 SEEN /hpf (5-10)
[2021-10-04 18:35] LABS: Mucous, Urine 2+ /hpf (<or=2+)
[2021-10-04 18:51] LABS: ALB/GLOB Ratio 0.8 RATIO (0.9-2.4); AST(SGOT) 14 U/L (15-37); Alanine Aminotransfer ALT/SGPT 19 U/L (13-56); Albumin, Serum 3.4 g/dL (3.2-5.0); Alkaline Phosphatase 88 U/L (45-117); Anion Gap 7 (5-15); BUN 27 mg/dL (7-18); BUN/Creat Ratio 35.6 RATIO (10-20); Calcium,Total 9.4 mg/dL (8.5-10.1); Chloride 110 mmol/L (98-107); Cholesterol 175 mg/dL (200); Creatinine, Serum 0.76 mg/dL (0.55-1.02); EST Glomerular Filtration Rate 81 mL/min (>60); Est Glom Filt Rate - Afr Amer 98 mL/min (>60); Globulin 4.3 g/dL (2.2-4.2); Glucose 87 mg/dL (74-106); High Density Lipoprotein 58 mg/dL; Potassium 3.6 mmol/L (3.5-5.1); Protein, Total 7.7 g/dL (6.4-8.2); Sodium Level 141 mmol/L (136-145); Triglycerides 176 mg/dL; Very Low Density Lipoprotein 35 mg/dL (5-40)
== END | disposition home or self-care (01) ==
LOC: MTRAD 15:11
PROVIDERS: PCP Family Medicine; Referring Provider Family Medicine; Visit Provider Family Medicine
DX: I10 Essential (primary) hypertension (principal); M25.559 Pain in unspecified hip
CPT/HCPCS: 36415; 73521; 80053; 80061; 81001; 85025

== ENCOUNTER → 2022-02-26 | Outpatient (CLI) | payer MEDICARE, SELFPAY ==
--- NOTE | 2022-02-26 09:33 | RAD_ITS ---
STUDY: XR Chest 2 Views 02/26/2022 9:39 AM REASON FOR EXAM: Female, 66 years old. CHEST PAIN BRONCHITIS COMPARISON: 01.03.21 TECHNIQUE: XR Chest 2 Views FINDINGS: There is no demonstrated pleural abnormality. Normal heart size. Normal mediastinum. Normal favio. Prominent appearing increased interstitial lung markings. Normal visualized pulmonary arteries. There is atherosclerotic calcification of the aortic arch with tortuosity. There are diffuse degenerative changes of the visualized thoracic spine. There is degenerative osteoarthritis of the bilateral shoulders. There is no demonstrated abnormality of the visualized soft tissue structures of the upper abdomen. RAD/Chest PA and Lateral IMPRESSION: There are no acute findings. Electronically Signed: Deni Randall MD at 17:19 EST ,
== END | disposition home or self-care (01) ==
LOC: MTRAD 09:32
PROVIDERS: PCP Family Medicine; Referring Provider Family Medicine; Visit Provider Family Medicine
DX: J20.9 Acute bronchitis, unspecified (principal)
CPT/HCPCS: 71046

== ENCOUNTER → 2022-04-03 | Outpatient (CLI) | payer MEDICARE, SELFPAY ==
--- NOTE | 2022-04-03 14:53 | BI_ITS ---
MAMMOGRAPHY - BILATERAL SCREENING REASON FOR EXAM: Female, 66 years old. Routine annual screening examination. PERTINENT HISTORY: Sister with breast cancer. TECHNIQUE: Digital bilateral breast romeo (3D mammographic acquisition) in the CC and MLO projections. 2-D mediolateral oblique (MLO) and craniocaudad (CC) views of both breasts were obtained. CAD: Full Field Digital Mammography with Computer Added Detection was performed. COMPARISON: Comparison is made with prior study dated 07/14/2020 and 12/09/2018. FINDINGS: Breast Composition: The breasts are almost entirely fatty. There are no dominant masses or suspicious calcifications. Stable small benign-appearing bilateral axillary lymph nodes. No other significant abnormalities are identified. There has been no significant change since the prior study. BI/SCRN MAMM (CAD)W/ROMEO BILAT IMPRESSION: Stable bilateral screening mammogram. Yearly follow-up mammogram recommended. (A) ASSESSMENT CATEGORY: BIRADS Category 2: Benign. A letter regarding these results will be sent to the patient by the facility within 30 days. Approximately 10% of breast cancers are not detected by mammography. A normal mammogram should not delay biopsy of a clinically suspicious abnormality. [id number] Electronically Signed: Arturo Lomeli MD at 15:39 EST ,
--- NOTE | 2022-04-03 15:01 | BD_ITS ---
STUDY: DUAL ENERGY X-RAY ABSORPTIOMETRY / DXA REASON FOR EXAM: Female, 66 years old. [id number] TECHNIQUE: Bone Mineral Density (BMD) measurements of lumbar spine and left forearm were obtained. COMPARISON: None. FINDINGS: Lumbar Spine (L1-L4): g/cm2 (1.174) / T-score (1.2) / Z-score (3.1) Findings are suggestive of normal bone density with a low fracture risk. Left Forearm: g/cm2 (0.599) / T-score (0.4) / Z-score (2.1) BD/Dexa Bone Density Study IMPRESSION: The patient is considered normal as outlined below according to World [place] Organization (WHO) criteria with a low fracture risk. Reference Information: The T-score is the number of standard deviations above or below the standard which is normal for young adults at their peak bone mineral density. The World Health Organization (WHO) interprets the T-scores as follows: Above -1 Normal bone density Between -1 and -2.5 Osteopenia Equal to / or below -2.5 Osteoporosis As a practical clinical guideline, osteopenia may be graded as follows: Mild -1 through -1.5 Moderate -1.6 through -2.0 Severe -2.1 through -2.4 The Z-score is the number of standard deviations above or below age-matched controls. A Z-score of less than -1.5 would be considered abnormal. References: 1. NIH Osteoporosis and Related Bone Diseases www osteo.org 2. International Society for Clinical Densitometry www iscd.org 3. National Osteoporosis Foundation www nof.org Electronically Signed: Arturo Lomeli MD at 8:41 EST ,
== END | disposition home or self-care (01) ==
PROVIDERS: PCP Family Medicine; Visit Provider Nurse Practitioner Family
DX: Z12.31 Encounter for screening mammogram for malignant neoplasm of breast (principal); Z80.3 Family history of malignant neoplasm of breast; M81.0 Age-related osteoporosis without current pathological fracture
CPT/HCPCS: 77063; 77067; 77080

== ENCOUNTER → 2022-04-25 | Outpatient (CLI) | payer MEDICARE, SELFPAY ==
[2022-04-25 15:10] LABS: Hematocrit 38.7 % (37-47); Hemoglobin 12.8 g/dL (12.0-15.0); Mean Corp Hgb Conc 33.1 g/dL (32-36); Mean Corpuscular Hgb 32.7 pg (27.0-32.0); Mean Platelet Vol. 10.3 fl (6.2-12.0); Platelet Count 328 K/mm3 (150-450); RBC Distribution Width CV 12.1 % (11.6-14.6); Red Blood Count 3.91 M/mm3 (4.2-5.4); White Blood Count 8.5 K/mm3 (4.4-11.0)
[2022-04-25 15:28] LABS: BNP,B-Type NATRIURETIC PEPTIDE 106.1 pg/mL (0-100)
== END | disposition home or self-care (01) ==
LOC: LAB 13:15
PROVIDERS: PCP Family Medicine; Referring Provider Internal Medicine Pulmonary Disease; Visit Provider Internal Medicine Pulmonary Disease
DX: R05.9 Cough, unspecified (principal); I27.21 Secondary pulmonary arterial hypertension; D64.9 Anemia, unspecified
CPT/HCPCS: 36415; 83880; 85027

== ENCOUNTER → 2022-06-13 | Outpatient (CLI) | payer MEDICARE, SELFPAY ==
[2022-06-13 10:40] LABS: Bacteria 0 SEEN /hpf (None Seen); Mucous, Urine 0 SEEN /hpf (<or=2+); Red Blood Cells-Urine 0 SEEN /hpf (0-5)
[2022-06-13 12:24] LABS: Color, Urine Yellow (Yellow); Glucose, Dipstick Normal (Normal); Ketone-Dipstick 5 mg/dl (Negative); Leukocyte Esterase-Dipstick 100 /ul (Negative); Nitrite-Dipstick Negative (Negative); Occult Blood-Urine 50 /ul (Negative); Protein-Dipstick Negative (Negative); Urine Bilirubin Dipstick Negative (Negative); Urine Clarity Clear (Clear); Urine Urobilinogen Normal (Normal)
[2022-06-13 12:31] LABS: Absolute Lymphocyte Count 1.33 X10^3/uL (0.83-4.51); Absolute Neutrophil Count 4.1 X10^3/uL (2.0-7.7); Basophil# 0.07 X10^3/uL; Basophil% 1.1 % (0-1); Eosinophil# 0.21 X10^3/uL; Eosinophils% 3.4 % (0-5); Hematocrit 39.4 % (37-47); Hemoglobin 13.1 g/dL (12.0-15.0); Lymphocyte # 1.33 X10^3/ul (0.83-4.51); Lymphocyte % 21.5 % (19-41); Mean Corp Hgb Conc 33.2 g/dL (32-36); Mean Corpuscular Hgb 33.1 pg (27.0-32.0); Mean Corpuscular Volume 99.5 fL (81-99); Mean Platelet Vol. 10.2 fl (6.2-12.0); Monocyte# 0.45 X10^3/uL; Monocyte% 7.3 % (0-10); NRBC Flagged by Analyzer 0 % (0-5); Neutrophil # 4.12 X10^3/uL (2.7-7.7); Neutrophil % 66.5 % (47-70); Platelet Count 331 K/mm3 (150-450); RBC Distribution Width CV 12.1 % (11.6-14.6); RBC Distribution Width SD 44.2 fl (35.1-43.9); Red Blood Count 3.96 M/mm3 (4.2-5.4); White Blood Count 6.2 K/mm3 (4.4-11.0)
[2022-06-13 12:50] LABS: Squamous Epithelial Cells - UA 0-5 SEEN /hpf (5-10); White Blood Cells 0-5 SEEN /hpf (0-5)
[2022-06-13 13:29] LABS: ALB/GLOB Ratio 0.8 RATIO (0.9-2.4); AST(SGOT) 14 U/L (15-37); Alanine Aminotransfer ALT/SGPT 20 U/L (13-56); Albumin, Serum 3.4 g/dL (3.2-5.0); Alkaline Phosphatase 89 U/L (45-117); Anion Gap 8 (5-15); BUN 30 mg/dL (7-18); BUN/Creat Ratio 35.5 RATIO (10-20); Calcium,Total 9.4 mg/dL (8.5-10.1); Chloride 107 mmol/L (98-107); Cholesterol 186 mg/dL (200); Creatinine, Serum 0.85 mg/dL (0.55-1.02); EST Glomerular Filtration Rate 71 mL/min (>60); Est Glom Filt Rate - Afr Amer 86 mL/min (>60); Globulin 4.3 g/dL (2.2-4.2); Glucose 83 mg/dL (74-106); High Density Lipoprotein 65 mg/dL; Protein, Total 7.7 g/dL (6.4-8.2); Sodium Level 141 mmol/L (136-145); Thyroid Stim Hormone (TSH) 2.16 uIU/mL (0.358-3.74); Triglycerides 85 mg/dL; Very Low Density Lipoprotein 17 mg/dL (5-40)
== END | disposition home or self-care (01) ==
PROVIDERS: PCP Family Medicine; Referring Provider Family Medicine; Visit Provider Family Medicine
DX: I10 Essential (primary) hypertension (principal)
CPT/HCPCS: 36415; 80053; 80061; 81001; 84443; 85025

== ENCOUNTER 2022-06-21 10:49 | Emergency (ER) | payer MEDICARE, SELFPAY ==
[2022-06-21 10:52] VITALS: BP 161/73; PULSE 78; RESP 16; TEMP 36.6; O2SAT 99; BMI 33.9
--- NOTE | 2022-06-21 11:04 | EKG12_ITS ---
Test Reason : CP Blood Pressure : / mmHG Vent. Rate : 074 BPM Atrial Rate : 074 BPM P-R Int : 142 ms QRS Dur : 082 ms QT Int : 394 ms P-R-T Axes : 020 032 012 degrees QTc Int : 437 ms Normal sinus rhythm Nonspecific ST abnormality Abnormal ECG Confirmed by RENNY ARGUETA, VENESSA ([id number]), greeting card editor MAYLIN ROSS ([id number]) on 06/24/2022 11:05:32 AM Referred By: SERVANDO Confirmed By:NARDA LAWSON MD
--- NOTE | 2022-06-21 11:06 | ED.VIS.CHEST ---
HPI <DIANA Villela - Last Filed: 06/21/22 13:59> History of Present Illness Chief Complaint: Chest Pain Narrative Narrative: Patient presenting today with midsternal chest pressure that radiates to her back and shoulders bilaterally that started at 5:30 am this morning and has been constant. She states she also feels slightly short of breath. She denies having any cardiac conditions and states that her last stress test was in December 2020. PMH includes hypertension. She denies any history of blood clots, recent surgeries/procedures, recent travel. She denies any fever, chills, abdominal pain, nausea, and vomiting PFSH <DIANA Villela - Last Filed: 06/21/22 13:59> PFSH Medical History Anaphylactic reaction Anxiety Arthritis COPD (chronic obstructive pulmonary disease) Depression GERD (gastroesophageal reflux disease) History of diverticulitis Hx of cardiac arrest (01/2018) Hypertension Kidney stone Left rotator cuff tear Mild pulmonary arterial systolic hypertension THIAGO (obstructive sleep apnea) Osteoarthritis Shortness of breath on exertion Varicose vein of leg Wears glasses Home Medications loratadine 10 mg capsule 10 mg PO DAILY PRN Allergies 05/14/17 [History Last Taken Unknown] meloxicam 15 mg tablet 7.5 mg PO BID bone health 02/10/18 [History Last Taken 11/25/19] multivitamin (Multiple Vitamins tablet) 1 tab PO DAILY supplement 02/10/18 [History Last Taken 11/25/19] escitalopram oxalate 5 mg tablet 5 mg PO DAILY mental health 11/26/19 [History Last Taken 11/25/19] albuterol sulfate 90 mcg/actuation aerosol inhaler (ProAir HFA) 2 puff inhalation Q6H PRN SOB 07/18/20 [History Last Taken 11/20/20] fluticasone furoate 100 mcg-vilanterol 25 mcg/dose inhalation powder (Breo Ellipta) 1 inh inhalation DAILY #60 ea 03/28/22 [Rx Last Taken Unknown] losartan 100 mg tablet 100 mg PO DAILY #90 tabs 04/11/22 [Rx Last Taken Unknown] Allergy/AdvReac Type Severity Reaction Status Date / Time Qdcjbih-IGL-BhX Reductase Allergy Severe Anaphylaxis Verified 06/21/22 10:52 Inhibitor [Irtaiin-Vtf-Ezm Reductase Inhibitor] Family History Father Stomach cancer Heart problem Mother Diabetes Brother Diabetes Sister Breast cancer Surgical History H/O: hysterectomy History of colonoscopy History of hip replacement History of total right hip replacement Hx of cholecystectomy Social History housing: apartment current occupational status: employed pets and animals: No Smoking Status: Never smoker second hand exposure: No alcohol intake: never substance use type: does not use ROS <DIANA Villela - Last Filed: 06/21/22 13:59> ROS ED Constitutional Constitutional ED: Denies chills, fever(s) or sweats Eyes Eyes: Denies blurry vision or diplopia Cardiovascular Cardiovascular: Reports chest pain; Denies palpitations Respiratory/Chest Respiratory/Chest: Reports dyspnea and dyspnea on exertion; Denies cough Gastrointestinal Gastrointestinal: Denies abdominal pain, constipation or nausea Musculoskeletal Musculoskeletal: Reports back pain; Denies arthralgias, myalgias or neck pain Integumentary Denies abscess, Abrasions or rash Neurologic Neurologic: Denies confusion, dizziness or paresthesias Psychiatric Psychiatric: Denies anxiety, depression, suicidal ideation or suicidal thoughts EXAM <DIANA Villela - Last Filed: 06/21/22 13:59> Physical Exam Const Vital Signs: 06/21/22 10:52 06/21/22 12:20 06/21/22 13:37 Temperature 97.8 F Temperature Source Temporal Pulse Rate 78 68 74 Respiratory Rate 16 18 19 H Blood Pressure 161/73 H 136/66 H 144/72 H Blood Pressure Mean 102 89 Pulse Ox 99 99 97 Oxygen Delivery Method Room Air Room Air Positive well nourished, well developed and no apparent distress General Appearance ED: well developed HEENT Reports normocephalic and head/scalp atraumatic Mouth ED: Yes moist mucous membranes normal Eyes PERRL and EOMs intact bilaterally Neck full ROM and supple Chest Wall inspection of chest normal Chest Narrative: Chest wall tenderness to palpation. Resp normal respiratory effort and clear to auscultation bilaterally Cardio regular rate and regular rhythm GI soft to palpation, non-tender, non-distended and no masses Back/Spine normal ROM and normal to inspection Extremity normal to inspection and full ROM Neuro oriented x3, CN's II-XII intact bilaterally, moves all extremities, no focal motor deficits and no sensory deficits noted Sensorium / Orientation: awake and alert Psych mental status grossly normal and thought process normal Skin no rashes or lesions noted and no wounds <Dr. Jean Metcalf MD - Last Filed: 06/21/22 12:29> Physical Exam Const Vital Signs: 06/21/22 10:52 06/21/22 12:20 06/21/22 13:37 Temperature 97.8 F Temperature Source Temporal Pulse Rate 78 68 74 Respiratory Rate 16 18 19 H Blood Pressure 161/73 H 136/66 H 144/72 H Blood Pressure Mean 102 89 Pulse Ox 99 99 97 Oxygen Delivery Method Room Air Room Air MDM <DIANA Villela - Last Filed: 06/21/22 13:59> [facility] MDM Narrative Medical decision making narrative: Patient presenting with midsternal chest pressure that radiates to her back and shoulders. She is well-appearing and in no acute distress. Her chest pain does not appear to be exertional she states it does not worsen with exertion and is not brought on by exertion. Last heart catheterization in December 2020 showed normal coronary arteries and normal right heart pressures. Labs to be obtained to rule out ACS. Chest x-ray will be obtained to rule out infiltrate, pneumothorax, and other cardiopulmonary abnormality. Do not feel that a D-dimer is indicated as patient is PERC negative. Initial troponin and delta troponin WNL, EKG is normal sinus rhythm. Chest x-ray does not show any acute cardiopulmonary abnormality. Patient does have chest wall tenderness to palpation along the sternum and anterior ribs without any crepitus. On reexamination patient states that she no longer has any chest pain and is feeling good. Her examination is more consistent with chest wall pain. 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 She is comfortable with plan. She has been given return instructions. I have personally performed a face to face assessment of the patient and have reviewed the MESERET Note. I performed a substantive portion of the visit including all aspects of the following. My sharpe findings include: History is [66-year-old female complaining of anterior chest pain since 530 this morning. No fall injury or trauma. No dyspnea or nausea. Goes across her chest. No history of cardiac disease. Has had prior multiple stress test all of which have been negative. There is 1 from a year and a half ago. She states she has actually had 1 this year. No prior cardiac cath. No history of DVT or PE. No risk factors.] Exam is [well-appearing 66-year-old. Vital signs stable afebrile. Pulse ox 99% on room air no hypoxia. HEENT exam normal. Lungs clear. Heart regular rate and rhythm no murmur. Rate about 70. Chest wall is reproducibly tender along the sternum and anterior ribs. There is no crepitance or subcu air. There is no bruising or redness. Abdomen is soft nontender. Moving all 4 extremities. Calves are nontender no edema no cords. Neurologically she is awake and alert.] Medical Decision Making [66-year-old with reproducible chest pain which I think is noncardiac and chest wall pain. She will undergo cardiac work-up. If it is negative she will be discharged home.] Other additions or changes: [None] Lab Data Labs: Laboratory Results - last 24 hr 06/21/22 06/21/22 06/21/22 11:06 11:06 13:10 WBC 7.0 RBC 4.00 L Hgb 13.1 Hct 39.4 MCV 98.5 MCH 32.8 H MCHC 33.2 RDW Std Deviation 43.8 RDW Coeff of Juan Alberto 12.0 Plt Count 299 MPV 9.6 Immature Gran % (Auto) 0.300 Neut % (Auto) 67.5 Lymph % (Auto) 23.0 Jewell % (Auto) 6.3 Eos % (Auto) 2.3 Baso % (Auto) 0.6 Absolute Neuts (auto) 4.7 Absolute Lymphs (auto) 1.60 Nucleated RBC % 0 Sodium 139 Potassium 3.8 Chloride 109 H Carbon Dioxide 26.0 Anion Gap 4 L BUN 26 H Creatinine 0.89 Estim Creat Clear Calc 48.51 Est GFR (MDRD) Af Amer 81 Est GFR (MDRD) Non-Af 67 BUN/Creatinine Ratio 29.3 H Glucose 139 H Calcium 8.7 Troponin I High Sens 6 6 Radiography Chest X-Ray - ED: Read by ED Physician and Read by Radiologist Diagnostic Testing: Clinical Impression(s) from Imaging Studies Chest X-Ray 06/21/22 11:24 IMPRESSION: Degenerative changes, as described above. No demonstrated acute cardiopulmonary process. Electronically Signed: Robert Teague MD at 12:06 EDT , EKG Initial EKG: Comments: 74 bpm, normal sinus rhythm, no ST elevation, read and interpreted by attending ED physician <Dr. Jean Metcalf MD - Last Filed: 06/21/22 12:29> MDM MDM Narrative Medical decision making narrative: Patient presenting with midsternal chest pressure that radiates to her back and shoulders. She is well-appearing and in no acute distress. Last heart catheterization in December 2020 showed normal coronary arteries and normal right heart pressures. Labs to be obtained to rule out ACS. Chest x-ray will be obtained to rule out infiltrate, pneumothorax, and other cardiopulmonary abnormality. Do not feel that a D-dimer is indicated as patient is PERC negative. I have personally performed a face to face assessment of the patient and have reviewed the MESERET Note. I performed a substantive portion of the visit including all aspects of the following. My sharpe findings include: History is [66-year-old female complaining of anterior chest pain since 530 this morning. No fall injury or trauma. No dyspnea or nausea. Goes across her chest. No history of cardiac disease. Has had prior multiple stress test all of which have been negative. There is 1 from a year and a half ago. She states she has actually had 1 this year. No prior cardiac cath. No history of DVT or PE. No risk factors.] Exam is [well-appearing 66-year-old. Vital signs stable afebrile. Pulse ox 99% on room air no hypoxia. HEENT exam normal. Lungs clear. Heart regular rate and rhythm no murmur. Rate about 70. Chest wall is reproducibly tender along the sternum and anterior ribs. There is no crepitance or subcu air. There is no bruising or redness. Abdomen is soft nontender. Moving all 4 extremities. Calves are nontender no edema no cords. Neurologically she is awake and alert.] Medical Decision Making [66-year-old with reproducible chest pain which I think is noncardiac and chest wall pain. She will undergo cardiac work-up. If it is negative she will be discharged home.] Other additions or changes: [None] History & Record Review Discussion w/independent historian: Patient Lab Data Attestation: I reviewed the patient's lab results. Lab results narrative: CBC normal. Chemistries unremarkable. Initial troponin 6. EKG normal. Portable chest x-ray unremarkable. Interpreted both by myself and the radiologist. Labs: Laboratory Results - last 24 hr 06/21/22 06/21/22 06/21/22 11:06 11:06 13:10 WBC 7.0 RBC 4.00 L Hgb 13.1 Hct 39.4 MCV 98.5 MCH 32.8 H MCHC 33.2 RDW Std Deviation 43.8 RDW Coeff of Juan Alberto 12.0 Plt Count 299 MPV 9.6 Immature Gran % (Auto) 0.300 Neut % (Auto) 67.5 Lymph % (Auto) 23.0 Jewell % (Auto) 6.3 Eos % (Auto) 2.3 Baso % (Auto) 0.6 Absolute Neuts (auto) 4.7 Absolute Lymphs (auto) 1.60 Nucleated RBC % 0 Sodium 139 Potassium 3.8 Chloride 109 H Carbon Dioxide 26.0 Anion Gap 4 L BUN 26 H Creatinine 0.89 Estim Creat Clear Calc 48.51 Est GFR (MDRD) Af Amer 81 Est GFR (MDRD) Non-Af 67 BUN/Creatinine Ratio 29.3 H Glucose 139 H Calcium 8.7 Troponin I High Sens 6 6 Radiography Diagnostic Testing: Clinical Impression(s) from Imaging Studies Chest X-Ray 06/21/22 11:24 IMPRESSION: Degenerative changes, as described above. No demonstrated acute cardiopulmonary process. Electronically Signed: Robert Teague MD at 12:06 EDT Reading Location ID and State: [facility] / [place] , Service support , Discharge Plan Triage Chief Complaint: Chest Pain Other Complaint: Lower Extremity Injury ED Midlevel Provider: Susi Young ED Provider: Jean Metcalf Dx/Rx/DC Orders Clinical Impression: Chest pain, Chest wall pain Instructions: ED Chest Pain, Uncertain Cause, ED Chest Wall Pain, Costochondritis Prescriptions: No Action multivitamin [Multiple Vitamins] tablet 1 tab PO DAILY albuterol sulfate [ProAir HFA] 90 mcg/actuation HFA aerosol inhaler 2 puff inhalation Q6H PRN (Reason: SOB) Breo Ellipta 100-25 mcg/dose blister with device 1 inh inhalation DAILY Qty: 60 11RF loratadine 10 MG capsule 10 mg PO DAILY PRN (Reason: Allergies) meloxicam 15 mg tablet 7.5 mg PO BID Label Comments: Take 1 tablet by mouth once daily. escitalopram oxalate 5 MG tablet 5 mg PO DAILY losartan 100 mg tablet 100 mg PO DAILY Qty: 90 3RF Primary Care Provider: Isidro Lozano Referrals: Isidro Lozano MD [Primary Care Provider] - 3-5 Days Activity Restrictions/Additional Instructions: Follow-up with your PCP and return for any worsening symptoms Disposition Disposition: Home, Self Care Discharge Date/Time: 06/21/22 13:50
[2022-06-21 11:17] LABS: Absolute Neutrophil Count 4.7 X10^3/uL (2.0-7.7); Basophil# 0.04 X10^3/uL; Basophil% 0.6 % (0-1); Eosinophil# 0.16 X10^3/uL; Eosinophils% 2.3 % (0-5); Hematocrit 39.4 % (37-47); Hemoglobin 13.1 g/dL (12.0-15.0); Mean Corp Hgb Conc 33.2 g/dL (32-36); Mean Corpuscular Hgb 32.8 pg (27.0-32.0); Mean Corpuscular Volume 98.5 fL (81-99); Mean Platelet Vol. 9.6 fl (6.2-12.0); Monocyte# 0.44 X10^3/uL; Monocyte% 6.3 % (0-10); NRBC Flagged by Analyzer 0 % (0-5); Neutrophil % 67.5 % (47-70); Platelet Count 299 K/mm3 (150-450); RBC Distribution Width SD 43.8 fl (35.1-43.9)
[2022-06-21] MEDS: Aspirin 81 MG TAB.CHEW 324 MG PO (11:20)
--- NOTE | 2022-06-21 11:24 | RAD_ITS ---
STUDY: X-RAY CHEST REASON FOR EXAM: Female, 66 years old. chest pain TECHNIQUE: Single AP portable view of the chest. COMPARISON: February 26, 2022 FINDINGS: The lungs are clear and expanded. There is no demonstrated pleural abnormality. Normal size heart. Normal mediastinum and favio. Normal visualized pulmonary arteries. Normal visualized aortic arch and descending thoracic aorta. There are diffuse degenerative changes of the visualized thoracic spine. Normal visualized ribs, clavicles, and shoulders. There is no demonstrated abnormality of the visualized soft tissue structures of the upper abdomen. RAD/Chest 1 View (Portable) IMPRESSION: Degenerative changes, as described above. No demonstrated acute cardiopulmonary process. Electronically Signed: Robert Teague MD at 12:06 EDT ,
[2022-06-21 11:33] LABS: Anion Gap 4 (5-15); BUN 26 mg/dL (7-18); BUN/Creat Ratio 29.3 RATIO (10-20); Calcium,Total 8.7 mg/dL (8.5-10.1); Chloride 109 mmol/L (98-107); Creatinine, Serum 0.89 mg/dL (0.55-1.02); EST Glomerular Filtration Rate 67 mL/min (>60); Est Glom Filt Rate - Afr Amer 81 mL/min (>60); Estimated Creatinine Clearance 48.51 ml/min; Glucose 139 mg/dL (74-106); Potassium 3.8 mmol/L (3.5-5.1); Sodium Level 139 mmol/L (136-145); Troponin-I HS (w/2H Reflex) 6 pg/mL (3.0-54.0)
[2022-06-21 12:20] VITALS: BP 136/66; PULSE 68; RESP 18; O2SAT 99
[2022-06-21 13:32] LABS: Troponin-I HS 6 pg/mL (3.0-54.0)
[2022-06-21 13:37] VITALS: BP 144/72; PULSE 74; RESP 19; O2SAT 97
== END 2022-06-21 13:50 | disposition home or self-care (01) ==
PROVIDERS: Physician Assistant; Emergency Provider Emergency Medicine; PCP Family Medicine; Visit Provider Emergency Medicine
DX: R07.89 Other chest pain (principal); J44.9 Chronic obstructive pulmonary disease, unspecified; I10 Essential (primary) hypertension; F41.9 Anxiety disorder, unspecified; F32.A Depression, unspecified; Z79.899 Other long term (current) drug therapy; M19.90 Unspecified osteoarthritis, unspecified site
CPT/HCPCS: 71045; 80048; 84484; 85025; 93005; 99285; A4216

== ENCOUNTER → 2022-11-11 | Outpatient (CLI) | payer MEDICARE, SELFPAY ==
[2022-11-11 13:20] LABS: Mucous, Urine 0 SEEN /hpf (<or=2+); Red Blood Cells-Urine 0 SEEN /hpf (0-5)
[2022-11-11 15:07] LABS: Absolute Neutrophil Count 5.3 X10^3/uL (2.0-7.7); Basophil# 0.06 X10^3/uL; Basophil% 0.8 % (0-1); Eosinophil# 0.15 X10^3/uL; Eosinophils% 1.9 % (0-5); Hematocrit 39.2 % (37-47); Hemoglobin 12.9 g/dL (12.0-15.0); Lymphocyte % 22.8 % (19-41); Mean Corp Hgb Conc 32.9 g/dL (32-36); Mean Corpuscular Hgb 32.5 pg (27.0-32.0); Mean Corpuscular Volume 98.7 fL (81-99); Mean Platelet Vol. 9.8 fl (6.2-12.0); Monocyte# 0.54 X10^3/uL; Monocyte% 6.8 % (0-10); NRBC Flagged by Analyzer 0 % (0-5); Neutrophil # 5.32 X10^3/uL (2.7-7.7); Neutrophil % 67.3 % (47-70); Platelet Count 338 K/mm3 (150-450); RBC Distribution Width SD 44.2 fl (35.1-43.9); Red Blood Count 3.97 M/mm3 (4.2-5.4); White Blood Count 7.9 K/mm3 (4.4-11.0)
[2022-11-11 15:11] LABS: Color, Urine Yellow (Yellow); Glucose, Dipstick Normal (Normal); Ketone-Dipstick 5 mg/dl (Negative); Leukocyte Esterase-Dipstick 500 /ul (Negative); Nitrite-Dipstick Negative (Negative); Occult Blood-Urine 25 /ul (Negative); Protein-Dipstick 30 mg/dl (Negative); Specific Gravity, Urine 1.025 (1.002-1.030); Urine Clarity Cloudy (Clear); Urine Urobilinogen Normal (Normal)
[2022-11-11 15:16] LABS: Urine Bilirubin Dipstick 1 mg/dL (Negative)
[2022-11-11 15:22] LABS: White Blood Cells 50-100 SEEN /hpf (0-5)
[2022-11-11 15:23] LABS: Bacteria 2+ /hpf (None Seen); Squamous Epithelial Cells - UA 10-25 SEEN /hpf (5-10)
[2022-11-11 15:46] LABS: ALB/GLOB Ratio 0.9 RATIO (0.9-2.4); AST(SGOT) 17 U/L (15-37); Alanine Aminotransfer ALT/SGPT 19 U/L (13-56); Albumin, Serum 3.6 g/dL (3.2-5.0); Alkaline Phosphatase 95 U/L (45-117); Anion Gap 7 (5-15); BUN 26 mg/dL (7-18); BUN/Creat Ratio 31.9 RATIO (10-20); Calcium,Total 9.1 mg/dL (8.5-10.1); Chloride 109 mmol/L (98-107); Cholesterol 191 mg/dL (200); Creatinine, Serum 0.82 mg/dL (0.55-1.02); EST Glomerular Filtration Rate 74 mL/min (>60); Est Glom Filt Rate - Afr Amer 90 mL/min (>60); Globulin 4.2 g/dL (2.2-4.2); Glucose 88 mg/dL (74-106); High Density Lipoprotein 68 mg/dL; Potassium 4.1 mmol/L (3.5-5.1); Protein, Total 7.8 g/dL (6.4-8.2); Sodium Level 140 mmol/L (136-145); Thyroid Stim Hormone (TSH) 2.97 uIU/mL (0.358-3.74); Triglycerides 105 mg/dL; Very Low Density Lipoprotein 21 mg/dL (5-40)
== END | disposition home or self-care (01) ==
PROVIDERS: PCP Family Medicine; Referring Provider Family Medicine; Visit Provider Family Medicine
DX: I10 Essential (primary) hypertension (principal)
CPT/HCPCS: 80053; 80061; 81001; 84443; 85025

== ENCOUNTER 2023-04-02 08:22 | Emergency (ER) | payer MEDICARE, MEDICAID, SELFPAY ==
[2023-04-02 08:24] VITALS: BP 140/108; PULSE 84; RESP 18; TEMP 36.6; O2SAT 99; BMI 38.0
--- NOTE | 2023-04-02 08:43 | EKG12_ITS ---
Test Reason : CP Blood Pressure : / mmHG Vent. Rate : 065 BPM Atrial Rate : 065 BPM P-R Int : 142 ms QRS Dur : 082 ms QT Int : 398 ms P-R-T Axes : 024 048 012 degrees QTc Int : 413 ms Normal sinus rhythm Normal ECG Confirmed by DULCE ARGUETA, RUTH ([id number]), digital editor RAFAELA BUSTAMANTE ([id number]) on 04/04/2023 6:56:29 AM Referred By: RU Confirmed By:RUTH CARDONA MD
--- NOTE | 2023-04-02 08:43 | RAD_ITS ---
INDICATION: chest pain EXAMINATION/TECHNIQUE: X-RAY - XR Chest 1 View COMPARISON: Prior study dated: 06/21/2022 FINDINGS: LINES/DEVICES: None. LUNGS: No consolidation, edema or effusion. No pneumothorax. MEDIASTINUM AND CARDIOVASCULAR STRUCTURES: Cardiac silhouette not enlarged. Central airways and mediastinal contour are unremarkable. BONES AND SOFT TISSUES: Unremarkable. RAD/Chest 1 View (Portable) IMPRESSION: No radiographic evidence of acute cardiopulmonary disease. Electronically Signed: Jey Landers MD at 9:21 EST ,
--- NOTE | 2023-04-02 08:43 | ED.VIS.CHEST ---
HPI History of Present Illness Chief Complaint: Chest Pain Informant: patient Narrative Narrative: Patient describes pain directly to the right of her sternum. She has a small area that hurts. There is an area in the back that hurts. This started around 430. She was already awake. She denies coughing. There is no pleuritic component. It does hurt to move. She has never had this before. Her record lists cardiac arrest as a history. But this was actually an anaphylactic event to statins. She has never had heart issues and never had stents or heart catheterization that she reports. There has been no travel surgery immobilization personal or family history of DVT or PE other than a sister with advanced cancer who may have had blood clots. She does have high blood pressure. Non-smoker. No family history of heart disease. Triage mentioned upper abdominal pain she denies this to me. She did have nausea vomiting and diarrhea 2 days ago but that seems to be gone completely. [facility] Medical History Anaphylactic reaction Anxiety Arthritis COPD (chronic obstructive pulmonary disease) Depression GERD (gastroesophageal reflux disease) History of diverticulitis Hx of cardiac arrest (01/2018) Hypertension Kidney stone Left rotator cuff tear Mild pulmonary arterial systolic hypertension THIAGO (obstructive sleep apnea) Osteoarthritis Shortness of breath on exertion Varicose vein of leg Wears glasses Home Medications loratadine 10 mg capsule 10 mg PO DAILY PRN Allergies 05/14/17 [History Last Taken Unknown] meloxicam 15 mg tablet 7.5 mg PO BID bone health 02/10/18 [History Last Taken 11/25/19] multivitamin (Multiple Vitamins tablet) 1 tab PO DAILY supplement 02/10/18 [History Last Taken 11/25/19] escitalopram oxalate 5 mg tablet 5 mg PO DAILY mental health 11/26/19 [History Last Taken 11/25/19] albuterol sulfate 90 mcg/actuation aerosol inhaler (ProAir HFA) 2 puff inhalation Q6H PRN SOB 07/18/20 [History Last Taken 11/20/20] losartan 100 mg tablet 100 mg PO DAILY #90 tabs 04/11/22 [Rx Last Taken Unknown] fluticasone furoate 100 mcg-vilanterol 25 mcg/dose inhalation powder (Breo Ellipta) 1 inh inhalation DAILY #60 ea 03/26/23 [Rx Last Taken Unknown] tramadol 50 mg tablet 50 mg PO Q6H 3 days #10 tabs 04/02/23 [Rx Last Taken Unknown] Allergy/AdvReac Type Severity Reaction Status Date / Time Tpagbjf-VOB-FnW Reductase Allergy Severe Anaphylaxis Verified 04/02/23 08:55 Inhibitor [Btcsydu-Enh-Fyi Reductase Inhibitor] Family History Father Stomach cancer Heart problem Mother Diabetes Brother Diabetes Sister Breast cancer Surgical History H/O: hysterectomy History of colonoscopy History of hip replacement History of total right hip replacement Hx of cholecystectomy Social History housing: apartment current occupational status: employed pets and animals: No Smoking Status: Never smoker second hand exposure: No alcohol intake: never substance use type: does not use ROS ROS ED ROS Narrative A complete review of systems was performed and is negative except as documented in the history of present illness. Some specific details below. Constitutional: No recent fevers or chills. She did have the nausea and vomiting with diarrhea on Friday but it is now gone. No blood was ever seen EYE: No discharge, visual complaints, or pain. ENT: No difficulty swallowing. No swelling. No pain. No reflux symptoms. CV: See history of present illness. Respiratory: No pleuritic pain or dyspnea. GI: No abdominal pain. No nausea vomiting diarrhea. No blood in stool. Symptoms had resolved. : No frequency dysuria or hematuria. Musculoskeletal: No recent trauma. No pains. No swelling. Skin: No rash. Nondiaphoretic. Neuro: No weakness or numbness. Endocrine: No polyuria or polydipsia. EXAM Physical Exam Narrative Exam Narrative: CONSTITUTIONAL: Patient is nontoxic in appearance. The patient looks comfortable. Work of breathing looks normal. HEENT: No notable trauma. Mucous membranes moist. No sinus tenderness. No indication of pain with swallowing. EYES: No conjunctival injection. No proptosis. NECK:No JVD. No stridor. CARDIOVASCULAR: Regular rate. Regular rhythm. No notable murmur. No JVD. Peripheral pulses are normal x 4. Tones are not muffled. RESPIRATORY: No respiratory distress. Breathing is unlabored. No wheezes. No rhonchi. No rales. No pain with a deep breath but there is clear tenderness just right of the sternum at about rib 5. There is also tenderness paraspinal in the back. But no rash vesicles or erythema. It is also painful with motion. GASTROINTESTINAL: Not distended. Bowel sounds are normal. No tenderness. No guarding. No rebound. No palpable mass. No bruit is heard. GENITOURINARY: No tenderness over the bladder. No CVA tenderness. MUSCULOSKELETAL: Atraumatic. No peripheral edema. No cord. No tenderness along the deep venous system. No asymmetry. No distended veins. NEUROLOGICAL: Patient is alert and appropriate. No focal deficit noted. SKIN: No noted rashes. No diaphoresis. PSYCHIATRIC: Patient is calm. Mood is appropriate. Const Vital Signs: 04/02/23 08:24 04/02/23 08:57 04/02/23 08:57 Temperature 98 F Temperature Source Temporal Pulse Rate 84 63 Respiratory Rate 18 20 H Respiratory Effort Blood Pressure 140/108 H Blood Pressure Mean 118 Pulse Ox 99 100 100 Oxygen Delivery Method Room Air Room Air Room Air 04/02/23 08:57 Temperature Temperature Source Pulse Rate Respiratory Rate Respiratory Effort Normal Non-Labored Blood Pressure Blood Pressure Mean Pulse Ox Oxygen Delivery Method MDM MDM MDM Narrative Medical decision making narrative: My independent interpretation of the patient's single view AP chest x-ray shows no acute process and final reading is similar. Patient's CBC including white count hemoglobin and platelets are normal. Patient's electrolytes show minimally low potassium and minimally elevated chloride. Mild dehydration with a to be creatinine ratio. She was given some IV fluids. Patient's troponin is negative at 6. Patient's repeat troponin is negative at 6. Statistically this has nearly 100% negative predictive value for major adverse cardiac event. Patient has not developed any new symptoms. She still has some tenderness. She still has pain with motion. I do not think her symptoms justify a CTA of the chest. I am not seeing any indication of PE or or dissection. She still has excellent referral pulses and color. Although she is over 50, she is not tachycardic tachypneic or hypoxic and has no known risk factor for PE. Lab Data Attestation: I reviewed the patient's lab results. Labs: Laboratory Results - last 24 hr 04/02/23 04/02/23 09:00 11:00 WBC 5.4 RBC 3.90 L Hgb 12.6 Hct 37.7 MCV 96.7 MCH 32.3 H MCHC 33.4 RDW Std Deviation 43.1 RDW Coeff of Juan Alberto 12.1 Plt Count 292 MPV 9.5 Immature Gran % (Auto) 0.200 Neut % (Auto) 54.1 Lymph % (Auto) 31.2 Johnston % (Auto) 10.6 H Eos % (Auto) 3.2 Baso % (Auto) 0.7 Absolute Neuts (auto) 2.9 Absolute Lymphs (auto) 1.68 Nucleated RBC % 0 Sodium 141 Potassium 3.4 L Chloride 112 H Carbon Dioxide 23.0 Anion Gap 6 BUN 22 H Creatinine 0.88 Estim Creat Clear Calc 65.54 Est GFR (MDRD) Af Amer 83 Est GFR (MDRD) Non-Af 68 BUN/Creatinine Ratio 25.1 H Glucose 91 Calcium 9.0 Troponin I High Sens 6 6 Radiography Diagnostic Testing: Clinical Impression(s) from Imaging Studies Chest X-Ray 04/02/23 08:43 IMPRESSION: No radiographic evidence of acute cardiopulmonary disease. Electronically Signed: Jey Landers MD at 9:21 EST , EKG Initial EKG: Comments: My independent interpretation of the patient's EKG shows a normal sinus rhythm with overall rate of 65. No ectopy. No acute ST elevation or depression. OK interval, QRS duration and QTc are normal. Discharge Plan Triage Chief Complaint: Chest Pain ED Provider: Kp Flores Dx/Rx/DC Orders Clinical Impression: Right-sided chest pain Instructions: ED Chest Pain, Uncertain Cause Prescriptions: New tramadol 50 mg tablet 50 mg PO Q6H 3 Days Qty: 10 0RF No Action multivitamin [Multiple Vitamins] tablet 1 tab PO DAILY albuterol sulfate [ProAir HFA] 90 mcg/actuation HFA aerosol inhaler 2 puff inhalation Q6H PRN (Reason: SOB) Breo Ellipta 100-25 mcg/dose blister with device 1 inh inhalation DAILY Qty: 60 11RF loratadine 10 MG capsule 10 mg PO DAILY PRN (Reason: Allergies) meloxicam 15 mg tablet 7.5 mg PO BID Patient Comments: Take 1 tablet by mouth once daily. escitalopram oxalate 5 MG tablet 5 mg PO DAILY losartan 100 mg tablet 100 mg PO DAILY Qty: 90 3RF Primary Care Provider: Isidro Lozano Referrals: Isidro Lozano MD [Primary Care Provider] - 3-5 Days Disposition Disposition: Home, Self Care
[2023-04-02 08:57] VITALS: PULSE 63; RESP 20; O2SAT 100
[2023-04-02] MEDS: 0.9% Normal Saline (1000mL) 500 ML 1000 ML IV (08:59)
[2023-04-02 09:08] LABS: Absolute Lymphocyte Count 1.68 X10^3/uL (0.83-4.51); Absolute Neutrophil Count 2.9 X10^3/uL (2.0-7.7); Basophil# 0.04 X10^3/uL; Basophil% 0.7 % (0-1); Eosinophil# 0.17 X10^3/uL; Eosinophils% 3.2 % (0-5); Hematocrit 37.7 % (37-47); Hemoglobin 12.6 g/dL (12.0-15.0); Lymphocyte # 1.68 X10^3/ul (0.83-4.51); Lymphocyte % 31.2 % (19-41); Mean Corp Hgb Conc 33.4 g/dL (32-36); Mean Corpuscular Hgb 32.3 pg (27.0-32.0); Mean Corpuscular Volume 96.7 fL (81-99); Mean Platelet Vol. 9.5 fl (6.2-12.0); Monocyte# 0.57 X10^3/uL; Monocyte% 10.6 % (0-10); NRBC Flagged by Analyzer 0 % (0-5); Neutrophil # 2.92 X10^3/uL (2.7-7.7); Neutrophil % 54.1 % (47-70); Platelet Count 292 K/mm3 (150-450); RBC Distribution Width CV 12.1 % (11.6-14.6); RBC Distribution Width SD 43.1 fl (35.1-43.9); White Blood Count 5.4 K/mm3 (4.4-11.0)
[2023-04-02 09:27] LABS: Anion Gap 6 (5-15); BUN 22 mg/dL (7-18); BUN/Creat Ratio 25.1 RATIO (10-20); Chloride 112 mmol/L (98-107); Creatinine, Serum 0.88 mg/dL (0.55-1.02); EST Glomerular Filtration Rate 68 mL/min (>60); Est Glom Filt Rate - Afr Amer 83 mL/min (>60); Estimated Creatinine Clearance 65.54 ml/min; Glucose 91 mg/dL (74-106); Potassium 3.4 mmol/L (3.5-5.1); Sodium Level 141 mmol/L (136-145); Troponin-I HS (w/2H Reflex) 6 pg/mL (3.0-54.0)
[2023-04-02] MEDS: Morphine 4 MG/ML Syringe IV (10:11)
[2023-04-02 11:03] LABS: Reflex Troponin-HS? (from REC) Y
[2023-04-02 11:27] LABS: Troponin-I HS 6 pg/mL (3.0-54.0)
== END 2023-04-02 12:03 | disposition home or self-care (01) ==
PROVIDERS: Emergency Provider Emergency Medicine; PCP Family Medicine; Visit Provider Emergency Medicine
DX: R07.9 Chest pain, unspecified (principal); E86.0 Dehydration
CPT/HCPCS: 71045; 80048; 84484; 85025; 93005; 99284; J7030

== ENCOUNTER → 2023-04-15 | Outpatient (CLI) | payer MEDICARE, MEDICAID, SELFPAY ==
--- NOTE | 2023-04-15 08:49 | BI_ITS ---
MAMMOGRAPHY - BILATERAL SCREENING REASON FOR EXAM: Female, 67 years old. Routine annual screening examination. PERTINENT HISTORY: Sister with breast cancer. TECHNIQUE: Digital bilateral breast romeo (3D mammographic acquisition) in the CC and MLO projections. 2-D mediolateral oblique (MLO) and craniocaudad (CC) views of both breasts were obtained. CAD: Full Field Digital Mammography with Computer Added Detection was performed. COMPARISON: Comparison is made with prior study dated April 03, 2022 and July 14, 2020. FINDINGS: Breast Composition: The breasts are almost entirely fatty. There are no dominant masses or suspicious calcifications. Stable small benign-appearing bilateral axillary lymph nodes. No other significant abnormalities are identified. There has been no significant change since the prior study. BI/SCRN MAMM (CAD)W/ROMEO BILAT IMPRESSION: Stable bilateral screening mammogram. Yearly follow-up mammogram recommended. (A) ASSESSMENT CATEGORY: BIRADS Category 3: Probably Benign - Short-Interval Follow-up Suggested. A letter regarding these results will be sent to the patient by the facility within 30 days. Approximately 10% of breast cancers are not detected by mammography. A normal mammogram should not delay biopsy of a clinically suspicious abnormality. [id number] Electronically Signed: Arturo Lomeli MD at 11:07 EST ,
== END | disposition home or self-care (01) ==
LOC: OPBI 08:48
PROVIDERS: PCP Family Medicine; Referring Provider Family Medicine; Visit Provider Family Medicine
DX: Z12.31 Encounter for screening mammogram for malignant neoplasm of breast (principal); Z80.3 Family history of malignant neoplasm of breast
CPT/HCPCS: 77063; 77067

== ENCOUNTER 2023-07-23 08:51 | Outpatient (CLI) | payer MEDICARE, MEDICAID, SELFPAY ==
[2023-07-23 08:55] LABS: Mucous, Urine 0 SEEN /hpf (<or=2+)
--- NOTE | 2023-07-23 09:03 | RAD_ITS ---
INDICATION: chest pain, htn EXAMINATION/TECHNIQUE: X-RAY - XR Chest 2 Views COMPARISON: No relevant prior comparison study available FINDINGS: LINES/DEVICES: None. LUNGS: No consolidation, edema or effusion. No pneumothorax. MEDIASTINUM AND CARDIOVASCULAR STRUCTURES: Cardiac silhouette not enlarged. Central airways and mediastinal contour are unremarkable. BONES AND SOFT TISSUES: Mild dextroscoliosis which could be positional. RAD/Chest PA and Lateral IMPRESSION: No radiographic evidence of acute cardiopulmonary disease. Electronically Signed: Jey Landers MD at 10:39 EDT ,
[2023-07-23 10:04] LABS: Color, Urine Yellow (Yellow); Glucose, Dipstick Normal (Normal); Ketone-Dipstick Negative (Negative); Leukocyte Esterase-Dipstick 500 /ul (Negative); Nitrite-Dipstick Negative (Negative); Occult Blood-Urine 50 /ul (Negative); Protein-Dipstick Negative (Negative); Specific Gravity, Urine 1.025 (1.002-1.030); Urine Bilirubin Dipstick Negative (Negative); Urine Clarity Clear (Clear); Urine Urobilinogen Normal (Normal)
[2023-07-23 10:11] LABS: Red Blood Cells-Urine 0-5 SEEN /hpf (0-5); Squamous Epithelial Cells - UA 0-5 SEEN /hpf (5-10); White Blood Cells 10-25 SEEN /hpf (0-5)
[2023-07-23 10:12] LABS: Absolute Neutrophil Count 3.6 X10^3/uL (2.0-7.7); Bacteria 2+ /hpf (None Seen); Basophil# 0.07 X10^3/uL; Basophil% 1.2 % (0-1); Calcium Oxalate Crystals Ur 2+ /hpf (<or=2+); Eosinophil# 0.25 X10^3/uL; Eosinophils% 4.2 % (0-5); Hematocrit 38.9 % (37-47); Hemoglobin 12.6 g/dL (12.0-15.0); Lymphocyte % 26.8 % (19-41); Mean Corp Hgb Conc 32.4 g/dL (32-36); Mean Corpuscular Hgb 32.6 pg (27.0-32.0); Mean Corpuscular Volume 100.5 fL (81-99); Mean Platelet Vol. 10.3 fl (6.2-12.0); Monocyte# 0.47 X10^3/uL; Monocyte% 7.9 % (0-10); NRBC Flagged by Analyzer 0 % (0-5); Neutrophil # 3.57 X10^3/uL (2.7-7.7); Neutrophil % 59.7 % (47-70); Platelet Count 299 K/mm3 (150-450); RBC Distribution Width CV 12.2 % (11.6-14.6); RBC Distribution Width SD 44.9 fl (35.1-43.9); Red Blood Count 3.87 M/mm3 (4.2-5.4)
[2023-07-23 10:53] LABS: Vitamin B12 476 pg/mL (211-911); Vitamin D,25 Hydroxy 37.1 ng/mL
[2023-07-23 10:56] LABS: ALB/GLOB Ratio 0.8 RATIO (0.9-2.4); AST(SGOT) 17 U/L (15-37); Alanine Aminotransfer ALT/SGPT 17 U/L (13-56); Albumin, Serum 3.3 g/dL (3.2-5.0); Alkaline Phosphatase 96 U/L (45-117); Anion Gap 3 (5-15); BUN 25 mg/dL (7-18); BUN/Creat Ratio 31.1 RATIO (10-20); Chloride 112 mmol/L (98-107); Cholesterol 162 mg/dL (200); EST Glomerular Filtration Rate 75 mL/min (>60); Est Glom Filt Rate - Afr Amer 91 mL/min (>60); Globulin 4.1 g/dL (2.2-4.2); Glucose 70 mg/dL (74-106); High Density Lipoprotein 65 mg/dL; Magnesium 1.9 mg/dL (1.6-2.6); Potassium 3.8 mmol/L (3.5-5.1); Protein, Total 7.4 g/dL (6.4-8.2); Sodium Level 142 mmol/L (136-145); T4 Free Direct 0.83 ng/dL (0.76-1.46); Thyroid Stim Hormone (TSH) 3.48 uIU/mL (0.358-3.74); Triglycerides 91 mg/dL; Very Low Density Lipoprotein 18 mg/dL (5-40)
== END 2023-07-23 23:59 | disposition home or self-care (01) ==
PROVIDERS: PCP Family Medicine; Referring Provider Family Medicine; Visit Provider Family Medicine
DX: R07.9 Chest pain, unspecified (principal); R53.83 Other fatigue; I10 Essential (primary) hypertension
CPT/HCPCS: 36415; 71046; 80053; 80061; 81001; 82306; 82607; 83735; 84439; 84443; 85025

== ENCOUNTER 2023-07-28 00:21 | Emergency (ER) | payer MEDICARE, MEDICAID, SELFPAY ==
[2023-07-28 00:22] VITALS: BP 152/86; PULSE 89; RESP 18; TEMP 36.7; O2SAT 97
--- NOTE | 2023-07-28 00:39 | RAD_ITS ---
INDICATION: leg pain EXAMINATION/TECHNIQUE: X-RAY - XR Spine Lumbar 2 or 3 Views COMPARISON: 07/07/[address] FINDINGS: 2 views of the lumbar spine. BONES: Again noted mild lumbar dextroscoliosis. Otherwise, anatomic alignment without evidence of fracture or subluxation. No concerning bony lesion or abnormal sclerosis to suggest lesion. DISCS/JOINTS: Mild multilevel degenerative change. SOFT TISSUES: Atherosclerotic vascular calcifications. RAD/Lumbar Spine 2 or 3 Views IMPRESSION: Unremarkable lumbar spine. If there is persistent clinical concern for spine fracture and this is a trauma patient, recommend dedicated lumbar spine CT. Electronically Signed: Fredy Biggs MD at 2:52 EDT ,
--- NOTE | 2023-07-28 00:39 | RAD_ITS ---
INDICATION: Pain EXAMINATION/TECHNIQUE: X-RAY - LEFT XR Knee 1 or 2 Views COMPARISON: None. FINDINGS: 2 views of the left knee. BONES: Normal anatomic alignment without evidence of fracture or subluxation. No concerning bony lesion or abnormal sclerosis to suggest lesion. JOINTS: Minimal patellofemoral and medial compartment osteophyte formation. SOFT TISSUES: Small knee effusion. RAD/Knee 1 or 2 Views IMPRESSION: No acute osseous abnormality of the left knee. Electronically Signed: Fredy Biggs MD at 2:53 EDT ,
--- NOTE | 2023-07-28 00:45 | ED.VIS.LOWEX ---
HPI History of Present Illness Chief Complaint: Lower Extremity Injury Narrative Narrative: 67-year-old female who denies significant past medical history except for hypertension presents with left leg pain and left knee pain that began suddenly while she was lying in bed. She relates history that at 3:00 in the afternoon yesterday, almost 10 hours ago, she was walking at her house and fell. She fell onto her right side. She was able to get up and walk afterwards. She denies hitting her head or loss of consciousness, and she went about her day. This evening, while she was lying in bed trying to go to sleep, she feels shooting pain down her left leg although she fell onto her right side. She states she is having a lot of left knee pain as well. No back pain. She denies any cauda equina symptoms, no paresthesias/saddle anesthesia, no loss of bowel or bladder. No fevers or chills, no other symptoms. [facility] Medical History (Updated 07/28/23 @ 03:51 by Nicola Adhikari MD) Anaphylactic reaction Anxiety and depression Arthritis Asthma COPD (chronic obstructive pulmonary disease) GERD (gastroesophageal reflux disease) History of diverticulitis Hx of cardiac arrest (01/2018) Hypertension Kidney stone Left rotator cuff tear Mild pulmonary arterial systolic hypertension Obesity THIAGO (obstructive sleep apnea) Osteoarthritis Varicose vein of leg Wears glasses Home Medications loratadine 10 mg capsule 10 mg PO DAILY PRN Allergies 05/14/17 [History Last Taken Unknown] meloxicam 15 mg tablet 7.5 mg PO BID bone health 02/10/18 [History Last Taken 11/25/19] multivitamin (Multiple Vitamins tablet) 1 tab PO DAILY supplement 02/10/18 [History Last Taken 11/25/19] escitalopram oxalate 5 mg tablet 5 mg PO DAILY mental health 11/26/19 [History Last Taken 11/25/19] albuterol sulfate 90 mcg/actuation aerosol inhaler (ProAir HFA) 2 puff inhalation Q6H PRN SOB 07/18/20 [History Last Taken 11/20/20] fluticasone furoate 100 mcg-vilanterol 25 mcg/dose inhalation powder (Breo Ellipta) 1 inh inhalation DAILY #60 ea 03/26/23 [Rx Last Taken Unknown] losartan 100 mg tablet 100 mg PO DAILY #90 tabs 04/10/23 [Rx Last Taken Unknown] hydrocodone-acetaminophen 5-325mg 5mg-325mg 1 tab PO Q4H PRN PRN Pain 3 days #10 TABLETS 07/28/23 [Rx Last Taken Unknown] Allergy/AdvReac Type Severity Reaction Status Date / Time [id number]-[id number] Reductase Allergy Severe Anaphylaxis Verified 07/28/23 00:24 Inhibitor [Kxyoxro-Ltf-Vps Reductase Inhibitor] Family History Father Stomach cancer Heart problem Mother Diabetes Brother Diabetes Sister Breast cancer Surgical History H/O: hysterectomy History of colonoscopy History of hip replacement History of total right hip replacement Hx of cholecystectomy Social History housing: apartment current occupational status: employed pets and animals: No Smoking Status: Never smoker second hand exposure: No alcohol intake: never substance use type: does not use ROS ROS ED ROS Narrative Constitutional: No fever, no chills. HEENT: No sore throat. No neck pain. No loss of vision. No rhinorrhea. Cardiovascular: No chest pain. No palpitations. No pedal edema. Respiratory: No cough, no shortness of breath. Abdominal: No abdominal pain. No nausea. No vomiting. Genitourinary: No dysuria. No hematuria. Musculoskeletal: No myalgias. Left thigh pain, left knee pain. No back pain. Neurologic: No headaches. No dizziness. No lightheadedness. Skin: No rash. No change in color. Psychiatric: No depression. No anxiety. EXAM Physical Exam Narrative Exam Narrative: Afebrile. Vital signs noted. Regular rate and rhythm. Lungs clear to auscultation bilaterally. Abdomen soft nontender. Pelvis is stable. She is able to flex and extend her right leg and hip without difficulty. Range of motion of left lower extremity limited secondary to pain. She has tenderness to palpation about the left greater trochanter, and diffusely through the left knee. She is neurovascular intact distally with a palpable dorsalis pedis pulse and EHL intact on the left. Const Vital Signs: 07/28/23 00:22 07/28/23 02:09 Temperature 98.1 F Temperature Source Oral Pulse Rate 89 78 Respiratory Rate 18 16 Blood Pressure 152/86 H 145/72 H Blood Pressure Mean 108 96 Pulse Ox 97 93 Oxygen Delivery Method Room Air Room Air MDM MDM MDM Narrative Medical decision making narrative: The differential diagnosis is lumbar radiculopathy, compression fracture of the lumbar spine, left hip fracture versus muscle spasm. She was administered IV morphine and ondansetron. X-rays were obtained of the lumbar spine, left hip and pelvis, and the left knee to help rule out fracture. As she has fallen on the right side, I have lower suspicion for a left hip fracture, and additionally she states that she has had a left total hip arthroplasty remotely, so there would be more concern for periprosthetic fracture. She was given the IV morphine and IV placed in the event that laboratory needs to be drawn because she would be unable to ambulate and go home. Right knee x-rays interpreted by myself independently show no evidence of acute fracture. I reviewed the radiology report which confirms my independent interpretation. Additionally, I independently interpreted the x-rays of the pelvis and the left hip and see no evidence of periprosthetic fracture or dislocation. Once again I reviewed the radiology report which confirms my independent interpretation. X-rays of the lumbar spine interpreted by myself show no acute fracture but there are degenerative changes. I reviewed the radiology report which confirms my independent interpretation. I do not feel that CT imaging is indicated. Patient was able to ambulate in the emergency department. I feel she can be discharged to follow-up with her primary care provider. I did write her a short course of therapy of [place] tablets to take for pain. I feel she can be discharged safely home with follow-up. Return instructions reviewed. Disposition is discharged home in stable condition. History & Record Review Discussion w/independent historian: Patient Radiography Diagnostic Testing: Clinical Impression(s) from Imaging Studies Knee X-Ray 07/28/23 00:39 IMPRESSION: No acute osseous abnormality of the left knee. Electronically Signed: Fredy Biggs MD at 2:53 EDT , Lumbar Spine X-Ray 07/28/23 00:39 IMPRESSION: Unremarkable lumbar spine. If there is persistent clinical concern for spine fracture and this is a trauma patient, recommend dedicated lumbar spine CT. Electronically Signed: Fredy Biggs MD at 2:52 EDT , Hip/Pelvis X-Ray 07/28/23 01:14 IMPRESSION: No acute osseous abnormality of the pelvis or left hip. Electronically Signed: Fredy Biggs MD at 2:55 EDT , Discharge Plan Triage Chief Complaint: Lower Extremity Injury ED Provider: Nicola Adhikari Dx/Rx/DC Orders Clinical Impression: Leg pain, left, Lumbar radicular pain, Fall Instructions: ED Fall with Uncertain Cause, ED Sciatica, ED Muscle Strain, Extremity Prescriptions: New hydrocodone-acetaminophen 5-325 mg tablet 1 tab PO Q4H PRN PRN (Reason: Pain) 3 Days Qty: 10 0RF No Action multivitamin [Multiple Vitamins] tablet 1 tab PO DAILY albuterol sulfate [ProAir HFA] 90 mcg/actuation HFA aerosol inhaler 2 puff inhalation Q6H PRN (Reason: SOB) Breo Ellipta 100-25 mcg/dose blister with device 1 inh inhalation DAILY Qty: 60 11RF loratadine 10 MG capsule 10 mg PO DAILY PRN (Reason: Allergies) meloxicam 15 mg tablet 7.5 mg PO BID Patient Comments: Take 1 tablet by mouth once daily. escitalopram oxalate 5 MG tablet 5 mg PO DAILY losartan 100 mg tablet 100 mg PO DAILY Qty: 90 3RF Primary Care Provider: Isidro Lozano Referrals: Isidro Lozano MD [Primary Care Provider] - 1-2 Days if not improving Disposition Disposition: Home, Self Care
[2023-07-28] MEDS: Ondansetron 4 MG/2 ML Vial IV (00:55)
[2023-07-28] MEDS: Morphine 4 MG/ML Syringe IV (00:55)
--- NOTE | 2023-07-28 01:14 | RAD_ITS ---
INDICATION: Pain EXAMINATION/TECHNIQUE: X-RAY - LEFT XR Hip Unilateral with Pelvis when performed; 2-3 Views COMPARISON: 10/04/2021 hip and pelvis radiographs. FINDINGS: Single frontal view of the pelvis. 2 views of the left hip. BONES: Normal anatomic alignment without evidence of fracture or subluxation. No concerning bony lesion or abnormal sclerosis to suggest lesion. JOINTS: Bilateral total hip arthroplasties, incompletely imaged on the right, although no obvious hardware complication. SOFT TISSUES: Unremarkable. RAD/HIP, UNI W/ Pelvis 2-3 Views IMPRESSION: No acute osseous abnormality of the pelvis or left hip. Electronically Signed: Fredy Biggs MD at 2:55 EDT ,
[2023-07-28 02:09] VITALS: BP 145/72; PULSE 78; RESP 16; O2SAT 93
[2023-07-28 03:51] VITALS: BP 145/82; PULSE 71; RESP 16; TEMP 36.7; O2SAT 93
== END 2023-07-28 03:54 | disposition home or self-care (01) ==
PROVIDERS: Emergency Provider Emergency Medicine; PCP Family Medicine; Visit Provider Emergency Medicine
DX: M54.16 Radiculopathy, lumbar region (principal); I27.81 Cor pulmonale (chronic); J44.9 Chronic obstructive pulmonary disease, unspecified; M79.605 Pain in left leg; M25.562 Pain in left knee; Z91.81 History of falling; Z79.899 Other long term (current) drug therapy; K21.9 Gastro-esophageal reflux disease without esophagitis; Z86.74 Personal history of sudden cardiac arrest; I10 Essential (primary) hypertension
CPT/HCPCS: 72100; 73502; 73560; 96374; 96375; 99284; A4216; J2405

== ENCOUNTER → 2023-09-15 | Outpatient (CLI) | payer MEDICARE, MEDICAID, SELFPAY ==
--- NOTE | 2023-09-15 13:50 | STRESSREP_ITS ---
Stress Test Report Date: 09/15/2023 Procedure: Exercise tolerance test Indications: Chest pain Consent: Per the patient Procedure: The patient exercised on a Jaime protocol for 3 minutes and 5 seconds achieving a peak heart rate of 141 bpm (93% predicted maximal heart rate) with a peak blood pressure 194/82 mmHg and a peak MET capacity of approximately 4.7 MET's. The baseline ECG demonstrated sinus rhythm. The peak exercise ECG demonstrated no ischemic changes. There were no cardiac dysrhythmias pretest, during exercise, or recovery. The functional capacity was considered suboptimal. The patient had no complaints of chest discomfort during exercise or recovery. The examination was discontinued secondary to dyspnea and target heart rate being achieved. Impression: 1. Technically adequate (percent predicted maximal heart rate greater than 85%) exercise tolerance test 2. Peak exercise ECG with no ischemic changes 3. Poor functional capacity. Hypertensive response to exercise. This note was generated with [employer] software. It may contain incorrect words, spelling, and punctuation that were not noted in checking the note before signing.
== END | disposition home or self-care (01) ==
PROVIDERS: PCP Family Medicine; Referring Provider Family Medicine; Visit Provider Family Medicine
DX: R07.9 Chest pain, unspecified (principal)
CPT/HCPCS: 93017

== ENCOUNTER → 2023-12-19 | Outpatient (CLI) | payer MEDICARE, MEDICAID, SELFPAY ==
[2023-12-19 09:57] LABS: Mucous, Urine 0 SEEN /hpf (<or=2+); Red Blood Cells-Urine 0 SEEN /hpf (0-5)
[2023-12-19 12:45] LABS: Absolute Lymphocyte Count 1.91 X10^3/uL (0.83-4.51); Absolute Neutrophil Count 4.2 X10^3/uL (2.0-7.7); Basophil# 0.06 X10^3/uL; Basophil% 0.9 % (0-1); Eosinophil# 0.23 X10^3/uL; Eosinophils% 3.3 % (0-5); Hematocrit 38.8 % (37-47); Hemoglobin 12.6 g/dL (12.0-15.0); Lymphocyte # 1.91 X10^3/ul (0.83-4.51); Lymphocyte % 27.7 % (19-41); Mean Corp Hgb Conc 32.5 g/dL (32-36); Mean Corpuscular Hgb 31.7 pg (27.0-32.0); Mean Corpuscular Volume 97.7 fL (81-99); Mean Platelet Vol. 10.2 fl (6.2-12.0); Monocyte# 0.44 X10^3/uL; Monocyte% 6.4 % (0-10); NRBC Flagged by Analyzer 0 % (0-5); Neutrophil # 4.23 X10^3/uL (2.7-7.7); Neutrophil % 61.4 % (47-70); Platelet Count 341 K/mm3 (150-450); RBC Distribution Width CV 12.2 % (11.6-14.6); RBC Distribution Width SD 43.9 fl (35.1-43.9); Red Blood Count 3.97 M/mm3 (4.2-5.4); White Blood Count 6.9 K/mm3 (4.4-11.0)
[2023-12-19 13:08] LABS: Color, Urine Yellow (Yellow); Glucose, Dipstick Normal (Normal); Ketone-Dipstick Negative (Negative); Leukocyte Esterase-Dipstick 500 /ul (Negative); Nitrite-Dipstick Negative (Negative); Occult Blood-Urine 50 /ul (Negative); Protein-Dipstick 15 mg/dl (Negative); Urine Bilirubin Dipstick Negative (Negative); Urine Clarity Sl. Cloudy (Clear); Urine Urobilinogen Normal (Normal)
[2023-12-19 13:34] LABS: Squamous Epithelial Cells - UA 0-5 SEEN /hpf (5-10)
[2023-12-19 13:35] LABS: Bacteria 1+ /hpf (None Seen); White Blood Cells 0-5 SEEN /hpf (0-5)
[2023-12-19 13:53] LABS: ALB/GLOB Ratio 0.8 RATIO (0.9-2.4); AST(SGOT) 15 U/L (15-37); Alanine Aminotransfer ALT/SGPT 17 U/L (13-56); Albumin, Serum 3.4 g/dL (3.2-5.0); Alkaline Phosphatase 108 U/L (45-117); Anion Gap 7 (5-15); BUN 26 mg/dL (7-18); BUN/Creat Ratio 30.1 RATIO (10-20); Calcium,Total 9.1 mg/dL (8.5-10.1); Chloride 111 mmol/L (98-107); Cholesterol 196 mg/dL (200); Creatinine, Serum 0.86 mg/dL (0.55-1.02); EST Glomerular Filtration Rate 69 mL/min (>60); Est Glom Filt Rate - Afr Amer 84 mL/min (>60); Globulin 4.3 g/dL (2.2-4.2); Glucose 93 mg/dL (74-106); High Density Lipoprotein 72 mg/dL; Potassium 3.9 mmol/L (3.5-5.1); Protein, Total 7.7 g/dL (6.4-8.2); Sodium Level 140 mmol/L (136-145); Triglycerides 87 mg/dL; Very Low Density Lipoprotein 17 mg/dL (5-40)
== END | disposition home or self-care (01) ==
LOC: MFPLAB 09:55
PROVIDERS: PCP Family Medicine; Visit Provider Family Medicine
DX: I10 Essential (primary) hypertension (principal)
CPT/HCPCS: 36415; 80053; 80061; 81001; 85025

== ENCOUNTER → 2023-12-23 | Outpatient (CLI) | payer MEDICARE, MEDICAID, SELFPAY ==
--- NOTE | 2023-12-23 13:58 | RAD_ITS ---
INDICATION: ashtma, chest pain EXAMINATION/TECHNIQUE: X-RAY - XR Chest 2 Views COMPARISON: Prior study dated: 07/23/2023 FINDINGS: LINES/DEVICES: None. LUNGS: CTA of the medial aspect of the right upper chest unchanged probably chronic and may be due to scarring. No focal infiltrate otherwise is seen. No evidence of pleural effusions. MEDIASTINUM AND CARDIOVASCULAR STRUCTURES: Cardiac silhouette not enlarged. Central airways and mediastinal contour are unremarkable. BONES AND SOFT TISSUES: Unremarkable. RAD/Chest PA and Lateral IMPRESSION: No radiographic evidence of acute cardiopulmonary disease. Electronically Signed: Jey Landers MD at 16:38 EDT ,
== END | disposition home or self-care (01) ==
LOC: MTRAD 13:58
PROVIDERS: PCP Family Medicine; Referring Provider Family Medicine; Visit Provider Family Medicine
DX: J45.20 Mild intermittent asthma, uncomplicated (principal)
CPT/HCPCS: 71046

== ENCOUNTER → 2024-01-14 | Outpatient (CLI) | payer MEDICARE, MEDICAID, SELFPAY ==
--- NOTE | 2024-01-14 16:42 | RAD_ITS ---
STUDY: X-RAY CHEST REASON FOR EXAM: Female, 68 years old. bronchitis, cough, asthma TECHNIQUE: PA and lateral views of the chest. COMPARISON: 12/23/2023 FINDINGS: The lungs are clear and expanded. There is no demonstrated pleural abnormality. Normal size heart. Normal mediastinum and favio. Normal visualized pulmonary arteries. Normal visualized aortic arch and descending thoracic aorta. Normal visualized thoracic spine. Normal visualized ribs, clavicles, and shoulders. There is no demonstrated abnormality of the visualized soft tissue structures of the upper abdomen. RAD/Chest PA and Lateral IMPRESSION: Normal x-ray examination of the chest. Electronically Signed: Tree Saldaña MD at 12:28 EDT ,
--- OUTSIDE RECORDS SUMMARY | 2024-01-14 19:47 | XMS RPT_ITS | CCD ---
Author Organization [facility] Team Providers Care [employer] Name Role Phone ISHAAN HAYWARD Referring Unavailable ISHAAN HAYWARD Admitting Unavailable ISHAAN HAYWARD Attending Unavailable Maritza Terry DO Primary Care Provider ISHAAN HAYWARD Referring Unavailable MARITZA TERRY Primary Care Unavailable ISHAAN HAYWARD Attending Unavailable MARITZA TERRY Primary Care Unavailable Allergies Allergy Classification Reported Allergen(s) Allergy Type Date of Onset Reaction(s) Facility (4 sources) atorvastatin; Translations: [ATORVASTATIN CALCIUM] Drug Allergy 04-20-2018 Anaphylaxis [facility] Other [facility] Medications Completed/Discontinued Medications Medication Drug Class(es) Dates Sig (Normalized) Sig (Original) amoxicillin 875 mg / clavulanate 125 mg oral tablet (2 sources) Penicillin-class Antibacterial take 1 tablet by mouth twice daily amoxicillin-clavul anic acid (AUGMENTIN) 875-125 mg per tablet Take 1 tablet by mouth twice daily. 0 Active Comment on above: Take 1 tablet by khalida th twice daily. escitalopram 10 mg oral tablet (2 sources) Serotonin Reuptake Inhibitor Start: 10-03-2020 take 1 tablet by mouth once daily escitalopram oxalate (LEXAPRO) 10 mg tablet Take 10 mg by mouth once daily. 0 10/03/2020 Active Comment on above: Take 10 mg by mouth once daily. fluticasone / vilanterol (2 sources) Corticosteroid, beta2-Adrenergic Agonist take 1 puff(s) by inhalation once daily fluticasone/vilant delmy (BREO ELLIPTA INHALATION) Inhale 1 Puff as instructed once daily. 0 Active Comment on above: Inhale 1 Puff as ins tructed once daily. losartan potassium 100 mg oral tablet (1 source) Angiotensin 2 Receptor Tone Start: 10-08-2022 take 1 tablet by mouth once losartan (COZAAR) 100 mg tablet Take 1 tablet by mouth every afternoon. 0 10/08/2022 Active Comment on above: Take 1 tablet by khalida th every afternoon. meloxicam 15 mg oral tablet (2 sources) Nonsteroidal Anti-inflammatory Drug take 1 tablet by mouth once daily meloxicam (MOBIC) 15 mg tablet Take 15 mg by mouth once daily. 0 Active Comment on above: Take 15 mg by mouth once daily. Drcgjkwuznsbo-Iz-Jr on-Minerals tab (2 sources) Multivitamins-Ca -I дмитрий-Minerals tab Take by mouth once daily. 0 Active Comment on above: Take by mouth once d aily. omeprazole 20 mg delayed release oral capsule (2 sources) Proton Pump Inhibitor take 1 capsule by mouth once daily omeprazole (PRILOSEC) 20 mg capsule Take 20 mg by mouth once daily. 0 Active Comment on above: Take 20 mg by mouth once daily. predniSONE 10 mg oral tablet (1 source) Start: 12-26-2022 predniSONE (DELTASONE) 10 mg tablet Indications: Pain in left hip Take 6 pills (all at once) on day 1, 5 pills on day 2, 4 pills on day 3, 3 pills on day 4, 2 pills on day 5, and 1 pill on day 6. 21 tablet 0 12/26/2022 Active Comment on above: Take 6 pills (all at once) on day 1, 5 pills on day 2, 4 pills on day 3, 3 pills on day 4, 2 pills on day 5, and 1 pill on day 6. Problems Active Problems Problem Classification Problem Date Documented Date Episodic/Chronic Mood disorders (2 sources) Depressive disorder; Translations: [Depression] 11-01-2016 Chronic Other connective tissue disease (2 sources) Presence of left artificial hip joint; Translations: [Presence of left artificial hip joint] Onset: 05-14-2018 Chronic Other connective tissue disease (3 sources) History of repair of hip joint; Translations: [Presence of left artificial hip joint] Onset: 05-13-2018 05-14-2018 Chronic Other connective tissue disease (1 source) Tendinitis of left psoas tendon; Translations: [Psoas tendinitis, left hip] 12-26-2022 Episodic Other nervous system disorders (1 source) Other acute postprocedural pain; Translations: [Other acute postprocedural pain] Onset: 05-13-2018 Episodic Other non-traumatic joint disorders (1 source) Hip pain; Translations: [Pain in left hip] 12-26-2022 Episodic Other nutritional; endocrine; and metabolic disorders (2 sources) Obesity; Translations: [Obesity, unspecified] 05-27-2016 Chronic Other upper respiratory disease (2 sources) Seasonal allergy; Translations: [Other seasonal allergic rhinitis] 11-01-2016 Chronic Past or Other Problems Problem Classification Problem Date Documented Da te Episodic/Chronic Spondylosis; intervertebral disc disorders; other back problems (4 sources) Lumbago with sciatica; Translations: [Lumbago with sciatica, right side] Onset: 05-28-2016 05-28-2016 Episodic Results Test Name Value Interpretation Reference Range Facil ity CNOVon 12-26-2022 CNOV Office Visit (ORTHWS ) LESLIE DAVIS ([id number]) 1955 F Date Time Provider Department 12/26/22 8:40 AM ISHAAN HAYWARD During your visit today, we recorded the following information about you: Ishaan Hayward MD 01/16/2023 1:30 PM Signed Ishaan Hayward MD Department of Orthopaedics Orthopaedics [address] [place] [id number] Dept: [phone] Dept December 26, 2022 CHIEF COMPLAINT: Established Patient and Follow Up of the Left Hip (3.5 years post op Left ALIYAH/Xray today - 12/26/2022) HPI Patient presents with: Left Hip - Established Patient, Follow Up: 3.5 years post op Left ALIYAH Xray today - 12/26/2022 Patient is here for pain in her left hip. She [place] ALIYAH [place] [address] Hayward. States the hip was doing really well. 3 weeks ago she started noticing a sharp pain in the left hip when sneezing or with movement (household tasks). Patient denies noticing swelling in the left hip. Patient is retired. 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 AMB ROOMING INTAKE FLOWSHEET DATA Pain Pain Level: 4 Pain Location: Hip-Left Description: Shooting Duration Amount of Time: (Ongoing) Frequency: Intermittent Intervention/Comfort measure: Medication, Reposition, Relaxation ASSESSMENT: M25.552 Pain in left hip (primary encounter diagnosis) M76.12 Psoas tendinitis of left side PLAN: Prednisone, possible Psoas injection if possible. Inflammatory markers if we need to. OBJECTIVE: Ms. Leslie Davis is a pleasant 67 year old in no apparent distress. Gen:There were no vitals taken for this visit. nl development, obese, no deformities ENT: Normocephalic, normal hearing, moist mucosa CV: Pulses:Radial= 2+ and symmetric, capillary refill < 2 secs, no peripheral edema/varicosities Skin: no rash, bruising or lesions. Good turgor. Psych: cooperative and appropriate, alert and oriented x 3, good mood and affect. Musculoskeletal: Patient walks without antalgia. Gentle range of motion of the hip passively is without any pain. She does not really have any tenderness in the anterior or lateral portion of the hip. She does have quite exquisite pain on resisted hip flexion. Imaging: IMPRESSION: Status post left hip total replacement with stable alignment. Adult Care Manager: RONNELL Transcribe Date/Time: Dec 27 2022 2:46P Dictated by : GENIA PATEL MD This examination was interpreted and the report reviewed and electronically signed by: GENIA PATEL MD on Dec 27 2022 2:50PM EST Results-Findings * * *Final Report* * * DATE OF EXAM: Dec 26 2022 8:48AM [id number] - XR HIP 3V PELV+ AP/LAT LT / PROCEDURE REASON: History of left hip replacement * * * * Physician Interpretation * * * * EXAM TITLE: XR HIP 3V PELV+ AP/LAT LT EXAM DATE/TIME: 12/26/2022 8:48 AM COMPARISON: X-ray hip on 11/02/2018 CLINICAL INDICATION/HISTORY: Hip replacement. TECHNIQUE: AP and crosstable lateral views of the left hip and AP view of the pelvis are presented. FINDINGS: Status post left hip total replacement with satisfactory alignment. Right hip total replacement is also noted. The surgical hardware is intact. The visualized pelvic bones are intact. The bones are somewhat osteopenic. There is no significant soft tissue swelling. Supporting Subjective Information Below: Past Surgical History: PAST SURGICAL HISTORY Procedure Laterality Date ARTHRP ACETBLR/PROX FEM PROSTC AGRFT/ALGRFT Left 05/13/2018 Hip replacement, total CHOLECYSTECTOMY 1999 [place] COLONOSCOPY 2012 normal, peformed by Dr. Nguyen COLONOSCOPY FLX DX W/COLLJ SPEC WHEN PFRMD 11/20/2020 F TOTAL ABDOMINAL HYSTERECTOMY 2001 TOTAL HIP REPLACEMENT Right 2018 Medications: Current Outpatient Medications Medication Sig losartan (COZAAR) 100 mg tablet Take 1 tablet by mouth every afternoon. escitalopram oxalate (LEXAPRO) 10 mg tablet Take 10 mg by mouth once daily. meloxicam (MOBIC) 15 mg tablet Take 15 mg by mouth once daily. fluticasone/vilanterol (BREO ELLIPTA INHALATION) Inhale 1 Puff as instructed once daily. omeprazole (PRILOSEC) 20 mg capsule Take 20 mg by mouth once daily. Lkhguauwotxmm-Fb-Yeao- Minerals tab Take by mouth once daily. amoxicillin-clavulanic acid (AUGMENTIN) 875-125 mg per tablet Take 1 tablet by mouth twice daily. (Patient not taking: Reported on 12/26/2022) No current facility-administered medications for this visit. Allergies: Lipitor [Atorvastatin Calcium] ROS: General (negative for fatigue, malaise, weight loss/gain) HEENT (negative for headache, earache, recent vision changes, sinus pain, sore throat) Respiratory (no recent shortness of breath, hemoptysis) CV (negative for chest tightness, palpitations) Musculoskeletal (see HPI) Psych (no depression, anxiety) Ishaan Hayward MD Referring Provider: SELF [200] Allergies As of Date (more content not included)... Normal [facility] XR HIP 3V PELV+ AP/LAT LTon 12-26-2022 XR HIP 3V PELV+ AP/LAT LT * * *Final Report* * * DATE OF EXAM: Dec 26 2022 8:48AM [id number] [id number] - XR HIP 3V PELV+ AP/LAT LT / PROCEDURE REASON: History of left hip replacement * * * * Physician Interpretation * * * * EXAM TITLE: XR HIP 3V PELV+ AP/LAT LT EXAM DATE/TIME: 12/26/2022 8:48 AM COMPARISON: X-ray hip on 11/02/2018 CLINICAL INDICATION/HISTORY: Hip replacement. TECHNIQUE: AP and crosstable lateral views of the left hip and AP view of the pelvis are presented. FINDINGS: Status post left hip total replacement with satisfactory alignment. Right hip total replacement is also noted. The surgical hardware is intact. The visualized pelvic bones are intact. The bones are somewhat osteopenic. There is no significant soft tissue swelling. IMPRESSION: Status post left hip total replacement with stable alignment. Adult Care Manager: PSCB Transcribe Date/Time: Dec 27 2022 2:46P Dictated by : GENIA PATEL MD This examination was interpreted and the report reviewed and electronically signed by: GENIA PATEL MD on Dec 27 2022 2:50PM EST [id number] Normal [facility] XR HIP GENERAL 3V PELV/AP/LA T LEFTon 12-26-2022 [facility] CASE MANAGEMon 05-15-2018 CASE MANAGEM HNO ID: [id number] Author: Kourtney (Rn) DIEUDONNE Yeager Service: Case Management Author Type: Registered Nurse Type: Care Mgt Progress Note Filed: 05/15/2018 9:24 AM Note Text: CARE MANAGEMENT DISCHARGE NOTE SERVICE DATE: 05/15/2018 SERVICE TIME: 9:15 AM LOS: 2 days Admission Date: 05/13/2018 DISCHARGE ARRANGEMENT (list agency and phone number) Home Care - PT Provider: Sandy MIRANDA Notified of dc, all dc documents completed CAREGIVER ASSESSMENT: Caregiver is ready, willing and able to meet the patient's needs as recommended by the inter-professional team? Yes Patient's transition needs and plan for meeting these needs: DC to friend's home with HHC, surgical follow up Does the patient have an acute stroke diagnosis, or has the patient had a stroke during this admission? No HANDOFF COMMUNICATION: Primary Care Physician: Natalie Horner TRANSPORTATION ARRANGEMENTS: Car - Friend to transport ADDITIONAL CONTACT RESOURCES: Discharge Information Row Name Procedure from 04/21/2018 in Orthopaedics Admission (Current) from 05/13/[address] Care Agency ? [facility] Phone# ? [phone] IM letter given to Leslie Davis on 05/15/18 @ 9:15 am. SIGNATURE: Kourtney Yeager RN PATIENT NAME: Leslie Davis DATE: May 15, 2018 TIME: 9:14 AM PAGER/CONTACT #: [phone] [facility] Letter Text May 15, [address] [place] [address] Dear Ms. Davis, The nurses and staff of [facility] hope this letter finds you feeling well and progressing in your recovery. Our staff would like to thank you for trusting and choosing us for your health care needs. It was an honor for us to provide your nursing care. We know that placing our Patients First and maintaining a culture of continuous improvement each and every day, are essential to the success of our organization. I hope your stay with us has been positive. We want to hear from you. If you have any comments, questions or concerns about your hospital stay, please feel free to contact me, Ana Luisa Bhatti RN ([phone]) or email me at, [email or web address] Additionally, you will receive a survey in the mail asking you to rate the care you received while in the hospital. Please take the time to complete and send back the survey, as it is essential to our continued success. I personally review all the results and would appreciate your feedback. Thank you in advance for your participation and thank you for choosing the [facility] for your health needs. Sincerely, Nurse Kiln Furniture Saw Tender: Ana Luisa Bhatti RN ([phone]) [facility] Unit: [address] Letter Text May 15, 2018 Leslie Davis [address] [place] [address] Dear Ms. Davis, The nurses and staff of [facility] hope this letter finds you feeling well and progressing in your recovery. Our staff would like to thank you for trusting and choosing us for your health care needs. It was an honor for us to provide your nursing care. We know that placing our Patients First and maintaining a culture of continuous improvement each and every day, are essential to the success of our organization. I hope your stay with us has been positive. We want to hear from you. If you have any comments, questions or concerns about your hospital stay, please feel free to contact me, Ana Luisa Bhatti RN ([phone]) or email me at, [email or web address] Additionally, you will receive a survey in the mail asking you to rate the care you received while in the hospital. Please take the time to complete and send back the survey, as it is essential to our continued success. I personally review all the results and would appreciate your feedback. Thank you in advance for your participation and thank you for choosing the [facility] for your health needs. Sincerely, Nurse Kiln Furniture Saw Tender: Ana Luisa Bhatti RN ([phone]) [facility] Unit: 2 [facility] NURSING PROGon 05-15-2018 Protein mass conc HNO ID: [id number] Author: Madison LouRn) DIEUDONNE Lorenzo Service: (none) Author Type: Registered Nurse Type: Nursing Progress Note Filed: 05/15/2018 1:39 PM Note Text: Nursing Progress Note Patient Name: Leslie Davis [place] __ Daily Note: 1255 Discharge instructions provided questions answered. Patient discharged via w/c accompanied by family and transport. This note was completed by: Madison Lorenzo RN [facility] Protein mass conc HNO ID: [id number] Author: Jose Alfredo LouRn) DIEUDONNE Mandel Service: Nursing Author Type: Registered Nurse Type: Nursing Progress Note Filed: 05/15/2018 7:24 AM Note Text: Nursing Progress Note Patient Name: Leslie Davis Patient [place] __ Daily Note: 2345: Noticed raised, red areas on patients right arm near AC. Patient stated she just removed tape from that area. Patient states area is starting to feel warm/sharp. Area is about 13mm x 11mm. Put cold to area; paged for Dr. Hayward. 0000: Re-paged Dr. Hayward. 0030: Talked to hospitalist (Dr. Ocampo); she is unable to order anything due to not being consulted. 0045: Dr. Hayward cell phone called. No answer. Dr. Hayward paged again. Patients arm has marginally improved after ice has been applied. Area remains uncomfortable to patient. Will continue to monitor. VS stable. No complaints of SOB. 0315: Patients selena area has improved. Patient still complaining of frontal headache. Medicated per MAY; encouraged fluids. 0720: Dr. Hayward returned call. New orders given. This note was completed by: Jose Alfredo Mandel RN [facility] PROGRESSon 05-15-2018 Protein mass conc HNO ID: [id number] Author: Kenny Grimes Service: Orthopaedic Surgery Author Type: Nurse Practitioner Type: Progress Notes Filed: 05/15/2018 7:58 AM Note Text: Attestation signed by Ishaan Hayward at 05/15/2018 9:49 AM indpendently seen and examined. Pt. Doing well. Will be going home with home health. POSTOP NOTE ORTHOPEDIC SERVICE DATE: 05/15/2018 SERVICE TIME: 7:57 AM IMPRESSION/PLAN: S/P Procedure(s) (LRB): ARTHROPLASTY REPLACE JOINT TOTAL HIP (Left) on 05/13/2018 Physical Therapy, recommending Home PT PWB 50 lbs LLE DVT prophylaxis: with aspirin, additional anticoagulant is contraindicated due to bleeding risk and Intermittent pneumatic compression device (IPCD) Pain control - resume Dilaudid Wean 02 Case Management for discharge planning, anticipate discharge today ACTIVE PROBLEM LIST Obesity Right-Sided Low Back Pain With Right-Sided Sciatica Depression Seasonal Allergies Low Back Pain With Left-Sided Sciatica History of Left Hip Replacement POST OPERATIVE COMPLICATIONS: Complicated by uneventful/none SUBJECTIVE: Patient states that they are comfortable Well Controlled hip pain. Mild incisional pain. OBJECTIVE: VITAL SIGNS: BP 131/54 Pulse 100 Temp 37.6 ?C (99.7 ?F) (Oral) Resp 18 Ht 157.5 cm (5' 2 ) Wt 100.2 kg (220 lb 14.4 oz) SpO2 95% BMI 40.40 kg/m? INTAKE AND OUTPUT: Intake/Output Summary (Last 24 hours) at 05/15/18 0757 Last data filed at 05/14/18 1805 Gross per 24 hour Intake 1717 ml Output 0 ml Net 1717 ml PHYSICAL EXAMINATION: Left Lower Extremity: Dorsalis pedis pulses palpable. Posterior tibial pulses palpable. Dorsi flexion 5/5. Plantar flexion 5/5. Extensor hallucis extension: 5/5. Sensory intact to light touch L1-S1. Dressing clean, dry and intact. Surgical site no drainage and Silverlon intact. Thigh is not swollen, calf is not tender, no signs of DVT or infection Problem Review and Assessment: Skin and Abdominal Wall: Patient monitored, no new events overnight Cardiovascular and Vascular: Patient monitored, no new events overnight Respiratory: Patient monitored, no new events overnight Endocrine and Metabolic: Patient monitored, no new events overnight Gastrointestinal: Patient monitored, no new events overnight Genitourinary and Nephrology: Patient monitored, no new events overnight Behavioral, Cerebrovascular and Nervous: Patient monitored, no new events overnight Infectious: Patient monitored, no new events overnight LABS: Recent Labs 05/14/18 0611 HB 11.2* DATA: Diagnostic tests reviewed for today's visit: Most recent labs and imaging results. SIGNATURE: Kenny Grimes APRN.DEXTER PATIENT NAME: Lselie Davis DATE: May 15, 2018 TIME: 7:57 AM PAGER/CONTACT #: [phone] The patient has undergone major orthopedic surgery and participating in therapy. Pain cannot be managed within an average of 30 MED per day. Patient requiring average of higher than 30 MED per day in order to control pain and allow patient to actively and safely participate in therapy and this is the lowest dose consistent with patient's medical condition. Non-narcotic medication options have been discussed. In addition, the patient has been advised of the benefits and risks of the opioid (including the potential for addiction). Patient demonstrated understanding of risks of benefits. [facility] THERAPY NTon 05-15-2018 THERAPY NT HNO ID: [id number] Author: Yazmin Kiser Service: Physical Therapy Author Type: All Round Butcher Type: Therapy (PT/OT/Speech/Resp) Filed: 05/15/2018 8:33 AM Note Text: Attestation signed by Jody LouPt) Johnny at 05/18/2018 9:16 AM I reviewed and agree with the documentation corresponding to this therapy visit. SIGNATURE: Jody Turner, PT DATE: May 18, 2018 TIME: 9:16 AM Physical Therapy Treatment SERVICE DATE: 05/15/2018 SERVICE TIME: 738 to 802 ROOM: [id number] Recommended Discharge Disposition: Home PT Recommended Discharge Disposition Comments: Kaz would benefit from continued PT to address strength, balance, endurance and safety deficits. Justification For Post Acute Needs: Anticipated community discharge;Good premorbid functional status;Good sitting tolerance;Living the community premorbidly;Willing to participate;May not tolerate higher intensity programing, Anticipated Discharge Needs: Physical Assist at Home Physical Assist at Home for: Cleaning;Laundry;Meals Recommended Discharge Equipment: No equipment needs anticipated PT Recommendations to Nursing: Transfer to/from chair;OOB for Meals;Sit at edge of bed;With assist of 1 person Device: Wheeled Walker PT 6 Clicks Score: 18 Precautions/Activity Restrictions: Total Hip Replacement;Weight Bearing Restrictions;Fall Risk;Lines/Tubes/Drain s Extremity With Weight Bearing Restricted: Left Lower Extremity Left Lower Extremity Weight Bearing Status: PWB (50#) Total Hip Replacement Precautions: Posterior ASSESSMENT : Patient able to progress ambulation distance and perform seated exercises with no adverse effects. Patient demonstrates compliance with PWB and was able to state 3/3 hip precautions. Patient requires no more than SBA/CGA with all functional mobility and demonstrates good safety awareness. Patient is safe for DC home. Patient Disposition at Start of Session: Supine in Bed;Call [facility] in Reach;SCDs Patient Disposition at End of Session: OOB in Chair;Call [facility] in Reach Tolerated Full Session Without limitations Physical Therapy Problem List: Pain;Safety Deficits;Decreased Activity Tolerance;Decreased Range Of Motion;Balance Impaired Patient /Caregiver Goals: Go Home (with Home PT and assist of anthony) Goals for Plan of Care: Able to perform HEP with: Independent Transfer supine to/from sit with: Stand By Assistance (controls and rails allowed) Transfer sit to/from stand with: Stand By Assistance (LRAD, PWB LLE) Ambulate with: Stand By Assistance Distance: 150-200 Device: (LRAD, PWB LLE) Car transfer with: Verbal Cues Only (simulation or demonstration) Goal: Pt to demonstrate compliance with PWB and ALIYAH precautions to allow for proper healing Progress Toward Goals: Progressing as expected Rehab Potential: Good PLAN: Treatment Frequency (times per week): 7;BID Current admission Treatment Interventions: Education;Joint Mobility;Strengthening ;Functional Mobility Training;Balance Training;Neuromuscular Re-education;Modalitie s Modalities: Ice Plan of Care developed with: Patient TREATMENT INTERVENTIONS: Therapy Diagnosis: Reduced mobility-other Interventions Provided: Therapeutic Exercise (04545);Therapeutic Activity (12413);Gait Training (16135) Therapeutic Exercise (07970) Treatment Minutes: 10 1 unit Skilled Intervention(s): Instruction in therapeutic exercise for bilateral AP, QS with 5 sec hold, GS with 5 second hold; L LE only heel slides, LAQ, hip abduction x 15 reps each Verbal and tactile cuing provided for correct performance of exercises Cues for diaphragmatic breathing Re-emphasized the importance of frequent performance of anti-embolic exercises Therapeutic Activity (19039) Treatment Minutes: 4 0 units Skilled Intervention(s): Instructed patient in supine to sit pushing with upper extremities to sit up Instruction in sit to stand technique with proper hand placement and body positioning at edge of bed/chair Instruction in stand to sit technique with lower extremities touching chair/bed and reaching back for surface Gait Training (97514) Treatment Minutes: 10 1 unit Skilled Intervention(s): Instruction in sequencing, gait pattern, step-to gait Instruction in correction of gait deviations, cues for upright posture, safety, diaphragmatic breathing Instruction in WB precautions, PWB L LE Instruction in use of equipment, cues for sequence and pattern Gait belt in place for safety with all functional mobility. RN aware of patient status. Discussed with patient sitting up for no longer than 1 hr and calling for assistance 100% of the time. Total Timed Code Treatment Minutes: 24 Total Treatment Time (minutes): 24 SUBJECTIVE: Current Hospital Course: Chart reviewed and no significant medical updates relevant to therapy were noted Reason for Physical Therapy Consult : post L ALIYAH Relevant Past Medical History: right total hip 06/02/17, depression, Patient Report: Patient agreeable and motivated to participate in PT. Patient states, I would love to see some sunshine! I feel much better today. Patient appropriate for PT per Madison BRO. Home Environment Patient Lives With: Self/Alone (will be staying with a friend) Assistance Available: 24 Hour Entry To Home: (stair lift) Number Of Stairs To Bed/Bath: 0 Tub/Shower Type: walk in Laundry: friend to complete Equipment Owned: Cane;Commode-Bedside;S hower Chair;Wheeled Walker;Grab Bars-Shower;Hand Held Shower;Hospital Bed;Sock Aide;Long Handled Sponge;Engraver Optical Frames Prior Functional Level: Within Functional Limits Prior Functional Level Comments: Pt reports use of cane for approx the last year and walker for the last week, ind with ADLs, + driving, works in a [employer] shop, denies falls in last 6 months. OBJECTIVE: CURRENT FUNCTIONAL STATUS: Current Functional Mobility Assist Level Additional Information Rolling Supine to Sit Contact Guard Assistance (HOB flat, no use of rails) Sit to Supine Other: See Comment (patient in bed side chair at end of treatment) Scooting Stand By Assistance (forward to EOB) Sit to Stand Stand By Assistance (with FWW) x1 trial from EOB Stand to Sit Stand By Assistance (with FWW) Bed to Chair Toilet/Commode Gait Stand By Assistance (step-to gait) Gait Device: Wheeled Walker Gait Distance (feet): 100'x1 Stairs (NA) Curb Step Car Transfer Gait Deviations Right Lower Extremity: Heel strike during initial stance decreased;Push-off during terminal stance decreased;Step length decreased Gait Deviations Left Lower Extremity: Weight bearing decreased;Heel strike during initial stance decreased;Push-off during terminal stance decreased;Step length decreased General Gait Deviations: Madonna decreased;Step length decreased;Flexed trunk posture Balance: Static Sitting;Dynamic Sitting;Static Standing;Dynamic Standing Static Sitting Balance: Independent Dynamic Sitting Balance: Independent Static Standing Balance: Supervision Dynamic Standing Balance: Stand By Assistance -M: 7: Walk 25 feet or more Please see discipline specific clinical documentation flowsheet for complete details for this therapy evaluation/treatment. SIGNATURE: Yazmin Kiser PTA PATIENT NAME: Leslie Davis DATE: May 15, 2018 TIME: 8:30 AM Normal [facility] Basic Metabolic Panlon 05-14 Anion gap molar conc 12 mmol/L Normal 9-18 [facility] Comment on above: Performed By: #### T SCR30 #### [facility] [address] [place], [place] [id number] Calcium mass conc 8.9 mg/dL Normal 8.5-10.2 [facility] Comment on above: Performed By: #### T SCR30 #### [facility] [address] [place], [place] [id number] Chloride molar conc 101 mmol/L Normal 97-105 [facility] Comment on above: Performed By: #### T SCR30 #### [facility] [address] [place], [place] [id number] CO2 molar conc 27 mmol/L Normal 22-30 [facility] Comment on above: Performed By: #### T SCR30 #### [facility] [address] [place], [place] [id number] Creatinine mass conc 0.81 mg/dL Normal 0.58-0.96 [facility] Comment on above: Performed By: #### T SCR30 #### [facility] [address] [facility] [phone] eGFR- Amer. >60 Normal [facility] Comment on above: Performed By: #### T SCR30 #### [facility] [address] [facility] [phone] GFR/1.73 sq M predicted among non-blacks MDRD vol rate/area (S/P/Bld) mL/min/{1.73_m2} Normal [facility] Comment on above: Result Comment: eGFR (Estimated GFR) Units of [...] accurately reflect actual GFR. Performed By: #### T SCR30 #### [facility] [address] [facility] [phone] Glucose mass conc 119 mg/dL High 74-99 [facility] Comment on above: Result Comment: The [place] Diabetes Association (ADA) provides guidance for cutoff values for fasting glucose and random glucose. The ADA defines fasting as no caloric intake for at least 8 hours. Fasting plasma glucose results between 100 to 125 [...] Standards of Medical Care in Diabetes 2016, [place] Diabetes Association. Diabetes Care. 2016.39(Suppl 1). Performed By: #### T SCR30 #### [facility] [address] [facility] [phone] Potassium molar conc 3.9 mmol/L Normal 3.7-5.1 [facility] Comment on above: Performed By: #### T SCR30 #### [facility] [address] [phone] Sodium molar conc 140 mmol/L Normal 136-144 [facility] Comment on above: Performed By: #### T SCR30 #### [facility] [address] [place] [phone] Urea nitrogen mass conc 22 mg/dL High 7-21 [facility] Comment on above: Performed By: #### T SCR30 #### [facility] [address] [place] [phone] CASE MANAGEMon 05-14-2018 CASE MANAGEM HNO ID: [id number] Author: Jaqueline LouRn) DIEUDONNE Buckley Service: Care Management Author Type: Registered Nurse Type: Care Mgt Progress Note Filed: 05/14/2018 4:53 PM Note Text: CARE MANAGEMENT PROGRESS NOTE SERVICE DATE: 05/14/2018 SERVICE TIME: 4:50 PM LOS: 1 day Needs Prior to Discharge: (accepting [facility]) [facility], [facility], [facility], [facility], and [facility], [facility] not able to accept. Await response from [facility] and [facility]. Per DIEUDONNE Darnell, pt will not d/c today. Need accepting [facility] company. Face to Face order is in for d/c. TCC to remain available for continued discharge planning. SIGNATURE: Jaqueline Buckley RN PATIENT NAME: Leslie Davis DATE: May 14, 2018 TIME: 4:50 PM PAGER/CONTACT #: [phone] [facility] CASE MGT INIT [facility] 2018 CASE MGT INIT [facility] HNO ID: [id number] Author: Jaqueline LouRn) DIEUDONNE Buckley Service: Care Management Author Type: Registered Nurse Type: Care Mgt Initial Assessment Filed: 05/14/2018 4:53 PM Note Text: CARE MANAGEMENT: ASSESSMENT AND DISCHARGE PLAN SERVICE DATE: 05/14/2018 SERVICE TIME: 11:01 AM PRIMARY CARE PHYSICIAN: Natalie Horner CNP (confirmed) ADMISSION STATUS: Inpatient Needs Prior to Discharge: Home Care Order 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 Health Issues Impacting Discharge Plan: Left THR, HX obesity, depression, allergies Last Admission Date: none Is this Within the Past 30 days? N/A Advance Directive: Current Advance Directive: None Senior Living Sales Counselor Attempted to Assist with AD Completion: Yes Action: Education Provided Health Literacy: 1. How often do you need to have someone help you when you read instructions, pamphlets, or other written material from your doctor or pharmacy? Never - 1 2. How confident are you filling out medical forms by yourself? Extremely - 1 If Patient scores > 3 on either question, the following interventions were put into place: Patient did not score > 3 FUNCTIONAL AND COGNITIVE/BEHAVIORAL PRIOR TO ADMISSION: Baseline Mental Status: Alert AND Oriented, Person, Place , Time and Situation Functional Status: Independent Does Patient Currently Receive Any Community Services or Home Care? None Equipment Prior to Admission: Cane - Unknown type Elevated toilet seat Tub bench/chair Walker Has the Patient Been in a Senior Living Facility in the Past 30 days? N/A SOCIAL: Living Arrangement: Apartment Lives With: Alone Financial Resources: Employed: [employer] Primary Contact: Extended Emergency Contact Information Primary Emergency Contact: Alisha Burleson [place] Relation: Friend Supportive: Yes Other Important Patient Contacts: None Caregiver Assessment: Caregiver is ready, willing and able to meet the patient's needs as recommended by the inter-professional team? Yes Patient's transition needs and plan for meeting these needs: home care and stay with a friend Does the patient have an acute stroke diagnosis, or has the patient had a stroke during this admission? No Medication Adherence: I am convinced of the importance of my prescription medication: Agree completely - 0 I worry that my prescription medication will do more harm than good to me Disagree completely - 0 I feel financially burdened by my [id number] expenses for my prescription medication: Disagree completely - 0 Patient is categorized as low risk < 2 Are you interested in bedside delivery of your medications? No Food Concerns: In the Last Month, Have You had Trouble Getting Food? No trouble getting food During the Last Month, Have You Worried Whether Your Food Would Run Out Before You Had Enough Money to Buy More? No Is the Patient Psychosocially Complex? No ASSESSMENT AND PLAN: Medical Needs: new hip replacement Psychosocial Needs: Mental Health Diagnosis: depression FREEDOM OF CHOICE EXPLAINED: Yes discussed with Leslie Davis Provider List: Home Care Preference: [facility] or any company able to service pt in [facility] POTENTIAL TRANSITION PLANS Home OT/PT TCC met with patient at bedside, introduced self and role. Pt s/p left hip replacement. From home alone, baseline independent. She will be staying with a friend post surgery. She is agreeable to [facility]. Has all DME needed. Denies other needs. Referral sent to [facility]. Friend will transport at d/c. SIGNATURE: Jaqueline Buckley RN PATIENT NAME: Leslie Davis DATE: May 14, 2018 TIME: 11:01 AM PAGER/CONTACT #: [phone] Normal [facility] Hemoglobinon 05-14-2018 Hemoglobin mass conc (Bld) 11.2 g/dL Low 11.5-15.5 [facility] Comment on above: Performed By: #### T SCR30 #### [facility] [address] [place] [address] PROGRESSon 05-14-2018 Protein mass conc HNO ID: [id number] Author: Kenny Girmes Service: Orthopaedic Surgery Author Type: Nurse Practitioner Type: Progress Notes Filed: 05/14/2018 7:24 AM Note Text: POSTOP NOTE ORTHOPEDIC SERVICE DATE: 05/14/2018 SERVICE TIME: 7:23 AM IMPRESSION/PLAN: S/P Procedure(s) (LRB): ARTHROPLASTY REPLACE JOINT TOTAL HIP (Left) on 05/13/2018 Physical Therapy, recommending SNF PWB 50 lbs LLE DVT prophylaxis: with aspirin, additional anticoagulant is contraindicated due to bleeding risk and Intermittent pneumatic compression device (IPCD) Pain control - improved with PO Dilaudid Case Management for discharge planning, anticipate progression to Home PT, possible discharge today ACTIVE PROBLEM LIST Obesity Right-Sided Low Back Pain With Right-Sided Sciatica Depression Seasonal Allergies Low Back Pain With Left-Sided Sciatica Primary Osteoarthritis of Left Hip History of Left Hip Replacement POST OPERATIVE COMPLICATIONS: Complicated by uneventful/none SUBJECTIVE: Patient states that they are comfortable Well Controlled hip pain. Mild incisional pain. OBJECTIVE: VITAL SIGNS: BP 128/52 Pulse 84 Temp 36.9 ?C (98.4 ?F) (Oral) Resp 16 Ht 157.5 cm (5' 2 ) Wt 100.2 kg (220 lb 14.4 oz) SpO2 96% BMI 40.40 kg/m? INTAKE AND OUTPUT: Intake/Output Summary (Last 24 hours) at 05/14/18 0723 Last data filed at 05/13/18 2258 Gross per 24 hour Intake 1522 ml Output 150 ml Net 1372 ml PHYSICAL EXAMINATION: Left Lower Extremity: Dorsalis pedis pulses palpable. Posterior tibial pulses palpable. Dorsi flexion 5/5. Plantar flexion 5/5. Extensor hallucis extension: 5/5. Sensory intact to light touch L1-S1. Dressing clean, dry and intact. Surgical site no drainage and Silverlon intact. Thigh is not swollen, calf is not tender, no signs of DVT or infection Problem Review and Assessment: Skin and Abdominal Wall: Patient monitored, no new events overnight Cardiovascular and Vascular: Patient monitored, no new events overnight Respiratory: Patient monitored, no new events overnight Endocrine and Metabolic: Patient monitored, no new events overnight Gastrointestinal: Patient monitored, no new events overnight Genitourinary and Nephrology: Patient monitored, no new events overnight Behavioral, Cerebrovascular and Nervous: Patient monitored, no new events overnight Infectious: Patient monitored, no new events overnight LABS: DATA: Diagnostic tests reviewed for today's visit: Most recent labs and imaging results. SIGNATURE: Kenny Grimes APRN.CNP PATIENT NAME: Leslie Davis DATE: May 14, 2018 TIME: 7:23 AM PAGER/CONTACT #: [phone] The patient has undergone major orthopedic surgery and participating in therapy. Pain cannot be managed within an average of 30 MED per day. Patient requiring average of higher than 30 MED per day in order to control pain and allow patient to actively and safely participate in therapy and this is the lowest dose consistent with patient's medical condition. Non-narcotic medication options have been discussed. In addition, the patient has been advised of the benefits and risks of the opioid (including the potential for addiction). Patient demonstrated understanding of risks of benefits. [facility] THERAPY NTon 05-14-2018 THERAPY NT HNO ID: [id number] Author: Yazmin Kiser Service: Physical Therapy Author Type: All Round Butcher Type: Therapy (PT/OT/Speech/Resp) Filed: 05/14/2018 4:14 PM Note Text: Attestation signed by Jody LouPt) Johnny at 05/15/2018 8:03 AM I reviewed and agree with the documentation corresponding to this therapy visit. SIGNATURE: Jody Turner, PT DATE: May 15, 2018 TIME: 8:03 AM Physical Therapy Treatment SERVICE DATE: 05/14/2018 SERVICE TIME: 1426 to 1456 ROOM: [place] [address] Recommended Discharge Disposition: Home PT Recommended Discharge Disposition Comments: Noamn would benefit from continued PT to address strength, balance, endurance and safety deficits. Justification For Post Acute Needs: Anticipated community discharge;Good premorbid functional status;Good sitting tolerance;Living the community premorbidly;Willing to participate;May not tolerate higher intensity programing;Anticipate that patient will require daily (5x/wk) skilled therapy in a post-acute facility setting at the time of acute hospital discharge Anticipated Discharge Needs: Physical Assist at Home Physical Assist at Home for: Cleaning;Laundry;Meals Recommended Discharge Equipment: No equipment needs anticipated PT Recommendations to Nursing: Transfer to/from chair;OOB for Meals;Sit at edge of bed;With assist of 1 person Device: Wheeled Walker PT 6 Clicks Score: 18 Precautions/Activity Restrictions: Total Hip Replacement;Weight Bearing Restrictions;Fall Risk;Lines/Tubes/Drain s Extremity With Weight Bearing Restricted: Left Lower Extremity Left Lower Extremity Weight Bearing Status: PWB (50#) Total Hip Replacement Precautions: Posterior ASSESSMENT : Patient able to tolerate gait training and seated exercises. Patient with complaints of SOB. Vitals monitored (remained WNL) and Rinku RENTERIA, notified of patient status. Patient requires no more than CGA with all OOB mobility and demonstrates good safety awareness. Patient fatigues quickly and requires seated rest breaks for recovery. Patient Disposition at Start of Session: Supine in Bed;Call Pittman in Reach;SCDs Patient Disposition at End of Session: OOB in Chair;Call Pittman in Reach Tolerance Limited By Other: See Comment (SOB) Physical Therapy Problem List: Pain;Safety Deficits;Decreased Activity Tolerance;Decreased Range Of Motion;Balance Impaired Patient /Caregiver Goals: Go Home (with Home PT and assist of merrick) Goals for Plan of Care: Able to perform HEP with: Independent Transfer supine to/from sit with: Stand By Assistance (controls and rails allowed) Transfer sit to/from stand with: Stand By Assistance (LRAD, PWB LLE) Ambulate with: Stand By Assistance Distance: 150-200 Device: (LRAD, PWB LLE) Car transfer with: Verbal Cues Only (simulation or demonstration) Goal: Pt to demonstrate compliance with PWB and ALIYAH precautions to allow for proper healing Progress Toward Goals: Progressing as expected Rehab Potential: Good PLAN: Treatment Frequency (times per week): 7;BID Current admission Treatment Interventions: Education;Joint Mobility;Strengthening ;Functional Mobility Training;Balance Training;Neuromuscular Re-education;Modalitie s Modalities: Ice Plan of Care developed with: Patient TREATMENT INTERVENTIONS: Therapy Diagnosis: Reduced mobility-other Interventions Provided: Therapeutic Exercise (09655);Therapeutic Activity (24250);Gait Training (98722) Therapeutic Exercise (71873) Treatment Minutes: 10 1 unit Skilled Intervention(s): Instruction in therapeutic exercise for bilateral AP, QS with 5 sec hold, GS with 5 second hold; R LE only heel slides, LAQ, hip abduction x 15 reps each Verbal and tactile cuing provided for correct performance of exercises Cues for diaphragmatic breathing Re-emphasized the importance of frequent performance of anti-embolic exercises Therapeutic Activity (32165) Treatment Minutes: 10 0 units Skilled Intervention(s): Instructed patient in supine to sit pushing with upper extremities to sit up Instruction in sit to stand technique with proper hand placement and body positioning at edge of bed/chair Instruction in stand to sit technique with lower extremities touching chair/bed and reaching back for surface Vitals monitored, refer to flow sheet. Issued to patient discharge instructions sheet for orthopedics with extensive education/review on the following topics: -safety/precautions recommendations -activity recommendations/contra indications includin) WB restrictions are in effect until follow-up with surgeon 2) balance activity and rest 3) do not sit for longer than 1 hour without getting up to move around 4) Must contact MD to get permission to resume driving -parameters of ice and cryotherapy as well as elevation of surgical level about level of heart -signs and symptoms of infection -symptoms of blood clot -equipment recommended and issued -rehab department phone number and contact information Gait Training (55577) Treatment Minutes: 10 1 unit Skilled Intervention(s): Instruction in sequencing, gait pattern, step-to gait Instruction in correction of gait deviations, cues for upright posture, safety, diaphragmatic breathing Instruction in use of equipment, cues for sequence and pattern Gait belt in place for safety with all functional mobility. RN aware of patient status. Discussed with patient sitting up for no longer than 1 hr and calling for assistance 100% of the time. Total Timed Code Treatment Minutes: 30 Total Treatment Time (minutes): 30 SUBJECTIVE: Current Hospital Course: Chart reviewed and no significant medical updates relevant to therapy were noted Reason for Physical Therapy Consult : post L ALIYAH Relevant Past Medical History: right total hip 06/02/17, depression, Patient Report: Patient agreeable and motivated to participate in PT. Patient appropriate for PT per Mann BRO. Home Environment Patient Lives With: Self/Alone (will be staying with a friend) Assistance Available: 24 Hour Entry To Home: (stair lift) Number Of Stairs To Bed/Bath: 0 Tub/Shower Type: walk in Laundry: friend to complete Equipment Owned: Cane;Commode-Bedside;S hower Chair;Wheeled Walker;Grab Bars-Shower;Hand Held Shower;Hospital Bed;Sock Aide;Long Handled Sponge;Engraver Optical Frames Prior Functional Level: Within Functional Limits Prior Functional Level Comments: Pt reports use of cane for approx the last year and walker for the last week, ind with ADLs, + driving, works in a [employer] shop, denies falls in last 6 months. OBJECTIVE: CURRENT FUNCTIONAL STATUS: Current Functional Mobility Assist Level Additional Information Rolling Supine to Sit Minimal Assistance (assist with trunk and LE mgmt, HOB flat) Sit to Supine Other: See Comment (patient in bed side chair at end of treatment) Scooting Contact Guard Assistance (forward to EOB) Sit to Stand Contact Guard Assistance (with FWW) Stand to Sit Contact Guard Assistance (with FWW) Bed to Chair Toilet/Commode Gait Contact Guard Assistance (step-to gait) Gait Device: Wheeled Walker Gait Distance (feet): 60'x1 Stairs (NA) Curb Step Car Transfer Gait Deviations Right Lower Extremity: Heel strike during initial stance decreased;Push-off during terminal stance decreased;Step length decreased Gait Deviations Left Lower Extremity: Weight bearing decreased;Heel strike during initial stance decreased;Push-off during terminal stance decreased;Step length decreased General Gait Deviations: Madonna decreased;Step length decreased;Flexed trunk posture Balance: Static Sitting;Dynamic Sitting;Static Standing;Dynamic Standing Static Sitting Balance: Independent Dynamic Sitting Balance: Independent Static Standing Balance: Stand By Assistance Dynamic Standing Balance: Contact Guard Assistance JH-HLM: 7: Walk 25 feet or more Please see discipline specific clinical documentation flowsheet for complete details for this therapy evaluation/treatment. SIGNATURE: Yazmin Kiser PTA PATIENT NAME: Leslie Davis DATE: May 14, 2018 TIME: 4:11 PM [facility] THERAPY NT HNO ID: [id number] Author: Yazmin Kiser Service: Physical Therapy Author Type: All Round Butcher Type: Therapy (PT/OT/Speech/Resp) Filed: 05/14/2018 2:24 PM Note Text: Attestation signed by Jody Turner at 05/15/2018 8:06 AM I reviewed and agree with the documentation corresponding to this therapy visit. SIGNATURE: Jody Turner PT DATE: May 15, 2018 TIME: 8:06 AM Physical Therapy Treatment SERVICE DATE: 05/14/2018 SERVICE TIME: 0949 to 1015 ROOM: [id number] Recommended Discharge Disposition: Home PT Recommended Discharge Disposition Comments: Noamn would benefit from continued PT to address strength, balance, endurance and safety deficits. Justification For Post Acute Needs: Anticipated community discharge;Good premorbid functional status;Good sitting tolerance;Living the community premorbidly;Willing to participate;May not tolerate higher intensity programing;Anticipate that patient will require daily (5x/wk) skilled therapy in a post-acute facility setting at the time of acute hospital discharge Anticipated Discharge Needs: Physical Assist at Home Physical Assist at Home for: Cleaning;Laundry;Meals Recommended Discharge Equipment: No equipment needs anticipated PT Recommendations to Nursing: Transfer to/from chair;OOB for Meals;Sit at edge of bed;With assist of 1 person Device: Wheeled Walker PT 6 Clicks Score: 18 Precautions/Activity Restrictions: Total Hip Replacement;Weight Bearing Restrictions;Fall Risk;Lines/Tubes/Drain s Extremity With Weight Bearing Restricted: Left Lower Extremity Left Lower Extremity Weight Bearing Status: PWB (50#) Total Hip Replacement Precautions: Posterior ASSESSMENT : Patient able to tolerate gait training and supine exercises with no adverse effects. Patient noted to be maximally fatigued at end of session. Patient requires no more than CGA with all functional mobility and gait training. Patient demonstrates compliance with PWB and was successfully able to state 3/3 hp precautions. Patient would benefit from continued PT to address strength, balance, endurance and safety deficits. Patient will require additional PT treatment prior to DC home. Patient Disposition at Start of Session: OOB in Chair;Call Pittman in Reach Patient Disposition at End of Session: OOB in Chair;Call Pittman in Reach;SCDs;Other: See Comment (Ice to Hip) Tolerated Full Session Without limitations Physical Therapy Problem List: Pain;Safety Deficits;Decreased Activity Tolerance;Decreased Range Of Motion;Balance Impaired Patient /Caregiver Goals: Go Home (with Home PT and assist of family) Goals for Plan of Care: Able to perform HEP with: Independent Transfer supine to/from sit with: Stand By Assistance (controls and rails allowed) Transfer sit to/from stand with: Stand By Assistance (LRAD, PWB LLE) Ambulate with: Stand By Assistance Distance: 150-200 Device: (LRAD, PWB LLE) Car transfer with: Verbal Cues Only (simulation or demonstration) Goal: Pt to demonstrate compliance with PWB and ALIYAH precautions to allow for proper healing Progress Toward Goals: Progressing as expected Rehab Potential: Good PLAN: Treatment Frequency (times per week): 7;BID Current admission Treatment Interventions: Education;Joint Mobility;Strengthening ;Functional Mobility Training;Balance Training;Neuromuscular Re-education;Modalitie s Modalities: Ice Plan of Care developed with: Patient TREATMENT INTERVENTIONS: Therapy Diagnosis: Reduced mobility-other Interventions Provided: Therapeutic Exercise (48713);Therapeutic Activity (07759);Gait Training (15885) Therapeutic Exercise (74514) Treatment Minutes: 10 1 unit Skilled Intervention(s): Instruction in therapeutic exercise for bilateral AP, QS with 5 sec hold, GS with 5 second hold; L LE only heel slides, LAQ, slightly resisted isometric hip abduction/addduction, SLR x 15 reps each Verbal and tactile cuing provided for correct performance of exercises Cues for diaphragmatic breathing Re-emphasized the importance of frequent performance of anti-embolic exercises Discussed/reviewed with patient supine HEP (handout provided), patient verbalizes understanding and has no further questions or concerns for RUG HOOKER HAND. Therapeutic Activity (86862) Treatment Minutes: 6 0 units Skilled Intervention(s): Instructed patient in sit to supine using safe, effective technique Instruction in sit to stand technique with proper hand placement and body positioning at edge of bed/chair Instruction in stand to sit technique with lower extremities touching chair/bed and reaching back for surface Gait Training (62678) Treatment Minutes: 10 1 unit Skilled Intervention(s): Instruction in sequencing, gait pattern,step-to gait Instruction in correction of gait deviations, cues for upright posture, safety, walker negotiation Instruction in WB precautions, PWB L LE Instruction in use of equipment, cues for sequence and pattern Gait belt in place for safety with all functional mobility. RN aware of patient status. Discussed with patient sitting up for no longer than 1 hr and calling for assistance 100% of the time. Total Timed Code Treatment Minutes: 26 Total Treatment Time (minutes): 26 SUBJECTIVE: Current Hospital Course: Chart reviewed and no significant medical updates relevant to therapy were noted Reason for Physical Therapy Consult : post L ALIYAH Relevant Past Medical History: right total hip 06/02/17, depression, Patient Report: Patient agreeable and motivated to participate in PT. Patient states, I am exhausted, you are really going to tire me out. Patient appropriate for PT per RNMann. Home Environment Patient Lives With: Self/Alone (will be staying with a friend) Assistance Available: 24 Hour Entry To Home: (stair lift) Number Of Stairs To Bed/Bath: 0 Tub/Shower Type: walk in Laundry: friend to complete Equipment Owned: Cane;Commode-Bedside;S hower Chair;Wheeled Walker;Grab Bars-Shower;Hand Held Shower;Hospital Bed;Sock Aide;Long Handled Sponge;Engraver Optical Frames Prior Functional Level: Within Functional Limits Prior Functional Level Comments: Pt reports use of cane for approx the last year and walker for the last week, ind with ADLs, + driving, works in a [employer], denies falls in last 6 months. OBJECTIVE: CURRENT FUNCTIONAL STATUS: Current Functional Mobility Assist Level Additional Information Rolling Supine to Sit Other: See Comment (patient in bed side chair upon arrival) Sit to Supine Minimal Assistance (HOB flat, no use of rails, assist with LE mgmt) Scooting Contact Guard Assistance (retro in bed) Sit to Stand Contact Guard Assistance (with FWW) x1 trial from chair Stand to Sit Contact Guard Assistance (with FWW) Bed to Chair Toilet/Commode Gait Contact Guard Assistance (step-to gait) Gait Device: Wheeled Walker Gait Distance (feet): 60'x1 Stairs (NA) Curb Step Car Transfer Gait Deviations Right Lower Extremity: Heel strike during initial stance decreased;Push-off during terminal stance decreased;Step length decreased Gait Deviations Left Lower Extremity: Weight bearing decreased;Heel strike during initial stance decreased;Push-off during terminal stance decreased;Step length decreased General Gait Deviations: Madonna decreased;Step length decreased;Flexed trunk posture Balance: Static Sitting;Dynamic Sitting;Static Standing;Dynamic Standing Static Sitting Balance: Supervision Dynamic Sitting Balance: Supervision Static Standing Balance: Stand By Assistance Dynamic Standing Balance: Contact Guard Assistance JH-HLM: 7: Walk 25 feet or more Please see discipline specific clinical documentation flowsheet for complete details for this therapy evaluation/treatment. SIGNATURE: Yazmin Kiser PTA PATIENT NAME: Leslie Davis DATE: May 14, 2018 TIME: 12:13 PM [facility] THERAPY NT HNO ID: [id number] Author: Hannah LouOtViktor Gilmore Service: Occupational Therapy Author Type: Occupational Therapist Type: Therapy (PT/OT/Speech/Resp) Filed: 05/14/2018 12:14 PM Note Text: Occupational Therapy Evaluation SERVICE DATE: 05/14/2018 SERVICE TIME: 828 ROOM: [place] [address] Recommended Discharge Disposition: Home Recommended Discharge Disposition Comments: with 24 hr assist initially for optimal safety Anticipated Discharge Needs: Physical Assist at Home Physical Assist at Home for: Cleaning;Laundry;Meals OT Recommendations to Nursing: To Bathroom for ADL?s /and or Toileting;OOB for meals;With assist of 1 person Equipment: Wheeled Walker OT 6 Clicks Score: 21 Precautions/Activity Restrictions: Total Hip Replacement;Weight Bearing Restrictions;Fall Risk;Lines/Tubes/Drain s Extremity With Weight Bearing Restricted: Left Lower Extremity Left Lower Extremity Weight Bearing Status: PWB (50#) Total Hip Replacement Precautions: Posterior ASSESSMENT: Pt is at SBA/CGA level for ADLS and functional mobility. Patient's impairments as related to Occupational Therapy include impaired self care task performance, decreased functional mobility s/p left total hip replacement. This may impact patient's ability to function without assist from caregivers. Patient requires skilled OT services to address self care limitations as well as progression of daily activities within safe limits. Patient is motivated with good participation. Pt is limited by pain. OT recommending progression to home level of care as pt reports adequate support and social structure for reasonably safe discharge home with caregivers/friends. Patient may benefit from one more session to address any homegoing concerns. ? Patient Disposition at Start of Session: Supine in Bed Patient Disposition at End of Session: OOB in Chair;Call [place]man in Reach Tolerated Full Session Occupational Therapy Problem List: Pain;Impaired Self Care;Functional Mobility Impairment Patient /Caregiver Goals: Go Home Goals for Plan of Care: Grooming with: Stand By Assistance Lower Body Dressing with: Stand By Assistance Toilet Hygiene with: Stand By Assistance Chair Transfer with: Stand By Assistance Toilet Transfer with: Stand By Assistance Demonstrate Competence With Education with: Supervision (use of AE to increase independence with LB ADLs) Progress Toward Goals: Progressing as expected Rehab Potential: Good PLAN: Treatment Frequency (times per week): 1 (more visit to address homegoing needs) Current admission Treatment Interventions: Education;Self Care / Home Management;Functional Mobility Training Plan of Care developed with: Patient TREATMENT INTERVENTIONS: Therapy Diagnosis: Decreased activities of daily living (ADL) Interventions Provided: Evaluation;Therapeutic Activity (45604);Self Mcfp Management (96845) $ Evaluation-Low (84487) Billed Units: 1 unit Therapeutic Activity (31834) Treatment Minutes: 10 1 unit Skilled Intervention(s): Pt educated and participated in bed mobility with VC's to use upper extremities, safety with hip precautions, and encouragement. Pt educated in sit to stand transfer safety with VC's for proper hand placement and body positioning at edge of bed, safety with hip precautions, and technique. Pt educated in importance of 'hip over knee' when choosing seat in home environment. Pt participated in functional mobility from bed to sink to chair, with VC's for walker safety, sequencing, and technique. Pt educated in weight bearing restriction and encouraged patient to use UEs and limit hopping. Extended time. Self Mcfp Management (95327) Treatment Minutes: 15 1 unit Skilled Intervention(s): Pt educated in role of OT. Pt educated in hip precautions with therapist demonstration and written on wall. Pt educated and participated in grooming activity at sink with verbal and visual cues to stabilize self on sturdy surface and to maintain walker square in front. Pt educated in LB dressing and adaptive equipment, pt able to demonstrate donning underwear with use of adult nurse practitioner. Discussed fixing sock aid at home with duct tape. Therapist demonstrates LH shoe horn and sponge. Pt educated in toileting safety and techniques with therapist simulation, recommended hygiene in standing. Discussed walk in shower transfer safety with verbal cues to back in/sit on seat. Pt educated in home mobility and walker safety in home environment with recommendation of walker bag, pockets, etc. Discussed car transfer safety with therapist simulation. THR handout given. Pt educated in plan of care. Total Timed Code Treatment Minutes: 25 Total Treatment Time (minutes): 41 SUBJECTIVE: Current Hospital Course: Chart reviewed; ; Reason for Occupational Therapy Consult: Pt is a 62 year old female admitted 05/13/18 with left total hip replacement. Relevant Past Medical History: right total hip 06/02/17, depression, Patient Report: My friends took care of me for 6 weeks last year when I had my right hip replaced Home Environment Patient Lives With: Self/Alone (will be staying with a friend) Assistance Available: 24 Hour Entry To Home: (stair lift) Number Of Stairs To Bed/Bath: 0 Tub/Shower Type: walk in Laundry: friend to complete Equipment Owned: Cane;Commode-Bedside;S hower Chair;Wheeled Walker;Grab Bars-Shower;Hand Held Shower;Hospital Bed;Sock Aide;Long Handled Sponge;Engraver Optical Frames Prior Functional Level: Within Functional Limits Prior Functional Level Comments: Pt reports use of cane for approx the last year and walker for the last week, ind with ADLs, + driving, works in a [employer], denies falls in last 6 months. OBJECTIVE: Cognition/Communicatio n Deficits Orientation Deficits: (alert and oriented x3) CURRENT FUNCTIONAL STATUS: Current Activities of Daily Living Assist Level Feeding Independent Grooming Stand By Assistance (for safety during standing portion of task) Bathing Upper Body Stand By Assistance (seated, per clinical judgment) Bathing Lower Body Contact Guard Assistance (for safety in standing, per clinical judgment) Dressing Upper Body Supervision (seated, per clinical judgment) Dressing Lower Body Contact Guard Assistance (for safety in standing, pt able to don under wear with AE) Toileting Contact Guard Assistance (for safety in standing, per clinical judgment) Functional Mobility Assist Level Rolling Supine to Sit Contact Guard Assistance (to guide LLE to edge of bed) Sit to Supine Scooting Stand By Assistance Sit to Stand Contact Guard Assistance Stand to Sit Contact Guard Assistance Bed to Chair Toilet/Commode Functional Mobility Contact Guard Assistance Wheeled Walker Please see discipline specific clinical documentation flowsheet for complete details for this therapy evaluation/treatment. SIGNATURE: HENRY Schneider/Kirsten PATIENT NAME: Leslie Davis DATE: May 14, 2018 TIME: 9:52 AM [facility] ANES Lemuel 05-13-2018 ANES POST HNO ID: [id number] Author: José Luis Tellez Service: Anesthesiology Author Type: Anesthesiologist Type: Anesthesia PostOp Filed: 05/13/2018 7:18 PM Note Text: POST ANESTHESIA EVALUATION NOTE SERVICE DATE: 05/13/2018 SERVICE TIME: 1400 : 1955 Vitals: 05/13/18 1042 05/13/18 1317 05/13/18 1356 05/13/18 1629 Temp: 37 ?C (98.6 ?F) 36.6 ?C (97.9 ?F) 37.2 ?C (99 ?F) 36.9 ?C (98.4 ?F) 05/13/18 1317 05/13/18 1356 05/13/18 1457 05/13/18 1629 BP: 125/72 131/72 (!) 117/43 (!) 123/45 05/13/18 1317 05/13/18 1356 05/13/18 1457 05/13/18 1629 Pulse: 75 79 81 80 05/13/18 1300 05/13/18 1317 05/13/18 1356 05/13/18 1629 Resp: 16 16 20 16 05/13/18 1317 05/13/18 1356 05/13/18 1457 05/13/18 1629 SpO2: 100% 98% 99% 94% Validated Vital Signs: yes POST ANES STATUS: No apparent anesthetic complications. The patient is appropriately hydrated with stable respiratory and cardiovascular status. Patient has safe and adequate airway control. The patient has appropriate pain relief and no significant post operative nausea or vomiting. The patient has achieved baseline mental status. Further assessment by Anesthesia Service: None Other Remarks: SIGNATURE: José Luis Tellez MD PATIENT NAME: Leslie Davis DATE: May 13, 2018 TIME: 7:18 PM PAGER/CONTACT #: [phone] [facility] ANES PREOPon 05-13-2018 ANES PREOP HNO ID: [id number] Author: Josef Lundberg Service: Anesthesiology Author Type: Anesthesiologist Type: Anesthesia PreOp Filed: 05/13/2018 8:10 AM Note Text: REGIONAL ANESTHESIOLOGY DAY OF SURGERY NOTE PATIENT NAME: Leslie Davis Allergies: ALLERGIES Allergen Reactions - Lipitor [Atorvastat* Anaphylaxis Procedure(s) (LRB): ARTHROPLASTY REPLACE JOINT TOTAL HIP (Left) Surgeon(s): Ishaan Hayward Vitals: 05/13/18 0741 BP: 159/74 Pulse: 82 Resp: 18 Temp: 37.3 ?C (99.1 ?F) TempSrc: Temporal Artery SpO2: 99% Weight: 93.9 kg (207 lb) Height: 157.5 cm (5' 2.01 ) Estimated body mass index is 37.85 kg/m? as calculated from the following: Height as of this encounter: 157.5 cm (5' 2.01 ). Weight as of this encounter: 93.9 kg (207 lb). ACTIVE PROBLEM LIST Obesity Right-Sided Low Back Pain With Right-Sided Sciatica Depression Seasonal Allergies Low Back Pain With Left-Sided Sciatica Primary Osteoarthritis of Left Hip PAST MEDICAL HISTORY Diagnosis Date - Depression - Obesity - Osteoarthritis hands - Seasonal allergies - Septic joint (HCC) Right great toe - Shingles - Varicose veins of legs PAST SURGICAL HISTORY Procedure Laterality Date - CHOLECYSTECTOMY 1999 [place] - COLONOSCOPY 2013 normal, peformed by Dr. Nguyen - Wade TOTAL ABDOMINAL HYSTERECTOMY 2000 FAMILY HISTORY Problem Relation Age of Onset - Diabetes Mother - Breast Cancer Sister 61 - Diabetes Brother - Stroke Brother - Diabetes Brother - Cancer Father gastric - Coronary Artery Disease Father [place] x3 Social History: Social History Substance Use Topics - Smoking status: Never Smoker - Smokeless tobacco: Never Used - Alcohol use No Prior to Admission medications as of 05/13/18 0738 Medication Sig Last Dose Taking omeprazole (PRILOSEC) 20 mg capsule Take 20 mg by mouth once daily. 05/13/2018 at 0400 Yes Bplnoabewfyxu-Iq-Cbhl- Minerals tab Take by mouth once daily. Past Week at Unknown time Yes meloxicam (MOBIC) 15 mg tablet TAKE 1 TABLET EVERY DAY Past Week at Unknown time Yes loratadine 10 mg cap Take 10 mg by mouth daily at bedtime. Unknown at Unknown time DULoxetine (CYMBALTA) 30 mg capsule Take 1 capsule by mouth once daily. 05/11/2018 Current Facility-Administered Medications: lactated ringers infusion 5-30 mL/hr INTRAVENOUS CONTINUOUS Edilma (Pa) Vetovitz Last Rate: 30 mL/hr at 05/13/18 0751 30 mL/hr at 05/13/18 0751 ceFAZolin iv piggyback 2 g in D5W (iso-osmotic) 100 mL (ANCEF) 2 g INTRAVENOUS Pre-Op Once Edilma (Pa) Vetovitz Hemoglobin 13.5 05/01/2018 Hematocrit 42.3 05/01/2018 Platelet Count 358 05/01/2018 Glucose 83 05/01/2018 BUN 29 05/01/2018 Creatinine 0.68 05/01/2018 Sodium 142 05/01/2018 Potassium 4.7 05/01/2018 Chloride 104 05/01/2018 CO2 26 05/01/2018 Protein, Total 7.7 01/05/2018 Albumin 4.4 05/01/2018 Calcium 9.9 05/01/2018 Alkaline Phosphatase 87 01/05/2018 Bilirubin, Total 0.4 01/05/2018 AST 23 01/05/2018 ALT 14 01/05/2018 Adequate NPO status: Yes Anesthetic risks, benefits, alternatives, personnel and consent discussed: Yes Patient agrees to proceed: Yes Previous Anesthesia: No history of adverse event. Airway Assessment: MP 3; Neck ROM: Limited Extension; Airway Evaluation: Short Neck and Thick neck Dentition: Missing tooth lower left and lower right Symptoms of Sleep Apnea: N/A Blood Products: Not anticipated for this procedure. Anesthetic Plan: SPINALGeneral; Standard ASA Monitors Pain Management Plan: Parenteral or Oral and per Surgical Service ASA Class: 3 Additional Physical Exam: Lungs: Patient health status unchanged since recent history and physical. See history and physical for exam findings. Cardiac: Patient health status unchanged since recent history and physical. See history and physical for exam findings. Additional pertinent findings: N/A Other Medical Problems: None Chronic Beta Tone medication administered within 24 hours: N/A I have interviewed and examined the patient. I have reviewed the medical record and/or the pre-anesthesia evaluation, pertinent labs, and test results. Significant changes in the patient's condition since the History and Physical, not otherwise documented in primary service progress notes: No This contains updated information obtained within 48 hours of Surgery/Procedure. SIGNATURE: Josef Lundberg MD DATE: May 13, 2018 TIME: 8:10 AM Normal [facility] NURSING PROGon 05-13-2018 Protein mass conc HNO ID: [id number] Author: Magui (Rn) DIEUDONNE Maradiaga Service: Nursing Author Type: Registered Nurse Type: Nursing Progress Note Filed: 05/13/2018 3:08 PM Note Text: Nursing Progress Note Patient Name: Leslie Davis [place] [facility] [place] __ Daily Note: pt arrived from PACU. Silverrlon clean and intact. Pt c/o severe 10/10 pain in left hip. See physical assessment. On 2L O2. Call light in reach. This note was completed by: Magui Maradiaga RN 1353- notified DESKTOP SUPPORT MANAGER Rinku Grimes that pain is not being controlled despite fentanyl and Morphine. Pt c/o stabbing 10/10 left hip. 1508- pt states her pain is down to an 8/10 [facility] Protein mass conc HNO ID: [id number] Author: Sumanth LouRn) DIEUDONNE Lozano Service: Nursing Author Type: Registered Nurse Type: Nursing Progress Note Filed: 05/13/2018 12:26 PM Note Text: Nursing Progress Note Patient Name: Leslie Davis Patient [place] [facility] [facility] __ Daily Note: Delay in pt to rm, requesting more pain med, rn on floor notified This note was completed by: Sumanth Lozano RN [facility] OPERATIVE NOon 05-13-2018 OPERATIVE NO HNO ID: [id number] Author: Ishaan Hayward Service: Orthopaedic Surgery Author Type: Physician Type: Operative Report Filed: 05/14/2018 7:13 PM Note Text: OPERATIVE/PROCEDURE REPORT LOG ID: [id number] SURGERY/PROCEDURE DATE: 05/13/2018 INCISION/PROCEDURE START TIME: 9:00 AM INCISION CLOSE/PROCEDURE END TIME: 10:38 AM SURGEON(S)/PROCEDURALI ST(S) AND NURSE PRN(S): Surgeon(s) and Role: * Ishaan Hayward - Primary Nurse Practitioner: Kourtney Encinas Physician [employer] Developer: Edilma Ponce (Pa) SURGERY/PROCEDURE(S): Left total hip arthroplasty. ANESTHESIA: Spinal SURGERY/PROCEDURE DETAILS: INDICATIONS: This is a pleasant 62-year-old female who had significant worsening of left hip pain, causing her functional problems. She exhausted conservative management including oral anti-inflammatories, pain medications, and physical therapy. She did very well with a right hip arthroplasty last year. The risks, benefits, alternatives, and potential complications involving total hip arthroplasty were again discussed with pt. and she understood the risks, including but not limited to, infection, perioperative complications, instability or dislocation, leg length differences, DVT or PE. ? FINDINGS: Severe arthritic changes on the femoral head and acetabular side. ? PROCEDURE: On 05/13/2018, the patient was clearly identified in the preoperative area and marked accordingly on the left hip by myself. She was taken to the operative suite and was given a spinal anesthetic. She received 2 grams of Ancef and 1 g of tranexamic acid prior to incision. The patient was then placed in a lateral decubitus position with a beanbag positioner and an axillary roll. All bony landmarks and neurovascular structures were appropriately padded in standard fashion, and the head and neck was taken care of by Anesthesia for the remainder of the case. The left lower extremity was then sterilely prepped and draped in standard fashion. An appropriate time-out was conducted and all were in agreement, signed consent form was on the chart, images were available for viewing, and implants were in the room with representation. Incision was made over the tip of the greater trochanter on the posterior edge in a curvilinear fashion. I came right down to the fascia on the lateral portion of the hip. The fascia was incised along the same curvature of the of the skin incision. Distally and proximally the fibers of the gluteus raj were bluntly dissected with my with my finger. Some bursa was excised off the lateral and posterior portion of the proximal femur. A Charnley retractor was placed for soft tissue retraction after the sciatic nerve was palpated, identified and protected during placement of the Charnley and throughout the case. I used a Bovie to come through the short external rotators of the hip at the level of the piriformis and made a T capsulotomy at that point, up to the acetabular rim. The femoral head was easily and atraumatically dislocated at that point. I measured from the lesser trochanter to the center of the head and from the center of the head to the greater the tip of the trochanter for measurements later on my trialing. I selected an Accolade II 127-degree neck angle cutting guide, and scored this angle approximately 1 fingerbreadth from the lesser trochanter. Next, with an oscillating saw and soft tissues protected with 2 Cobra retractors, the femoral neck cut was made. A bone hook was used to move the proximal femur within the acetabulum, and I placed a blunt Hohmann safely over the anterior rim of the acetabulum and a posterior acetabular retractor inferiorly. I also placed a pointed wide Hohmann under the abductors for retraction superiorly. I then the capsule from the labrum and removed the labrum and soft tissues around the bony rim of the acetabulum as well as in the condylar fossa. Once the fossa was cleared out, we began our reaming. There was complete eburnation of the acetabulum and a few small cysts anteriorly in the bone. Overhanging, superior osteophytes. I sequentially reamed up to a 53 attempting to medialize and bring her in with approximately 20 degrees of anteversion and 45 degrees of abduction. Once I found my appropriate positioning. I reamed with the final 53 for appropriate cup positioning. I then selected a Hossein Tritanium 54 mm acetabular clustered cup and malleted this in with a nice scratch fit. No screws were necessary for supplement fixation. A 36 mm X3 neutral liner was then malleted in place and a sponge was placed for protection. We then focused our attention on the femur. The remnant soft tissues off the proximal femur were taken off with the with the Bovie and I used the cookie cutter to enter the superior-lateral portion of the proximal femur. Then I used a hand entry reamer and then sequentially broached to a #5 for an excellent fit and fill. I then trialed with 127-degree with a standard head. She did have excellent stability with a standard head/neck trial, with appropriate and reproducible leg lengths. I did take an intraoperative x-ray to confirm both the size of the stem and positioning of the previously placed cup, and this was to my liking. The trial on the femur side was removed, and the final prosthesis was selected and malleted in for an excellent fit and fill. I then trialed one more time with standard femoral 36 mm head, and again the appropriate soft tissue balance and stability with flexion, internal rotation, and adduction. Again, leg lengths were checked, and my final measurements were essentially the same as preoperatively. At this point, the final Biolox 36 mm, standard femoral head was selected and malleted on a cleaned and dried Rivera taper. The hip was atraumatically reduced and it was taken through full range of motion again, and the soft tissue tensioning and stability was to my liking. The wound and joint was pulse lavaged copiously and we began our closure. Two drill holes were done with a 2 mm drill bit over the greater trochanter and #2 Nurolons were used to repair back the piriformis and posterior capsule for a very nice and tension-free repair. We then irrigated again and closed the fascia with interrupted figure-of- eight #2 Nurolon for a watertight closure. The soft tissues were closely approximated with 2-0 buried interrupted Vicryl and a running PDS subcuticular weave with Sure+Close and Steri-Strips on the tails was used. A silver- impregnated dressing was applied, and the patient was safely awoken in stable condition and transferred to the Postanesthetic Care Unit without complication. There were no complications during the procedure. The patient was safely awoken and transferred to the Postanesthetic Care Unit in stable condition. PRE-OP/PRE-PROCEDURE DIAGNOSIS: Left hip, primary osteoarthritis POST-OP/POST-PROCEDURE DIAGNOSIS: Primary osteoarthritis of Left hip ESTIMATED BLOOD LOSS: 250 mls SPECIMENS: Femoral head and neck IMPLANTABLE DEVICES: Clarence Tritanium 54 mm acetabular cup, 36 mm X3 liner (neutral), Accolade II 127-degree #6 stem and a Biolox 36 mm standard femoral head. DRAINS: None COMPLICATIONS: None PARTICIPATION IN SURGERY/PROCEDURE: I performed the procedure with assistance. No qualified resident/fellow was available. First assistants were necessary for appropriate patient positioning on the beanbag and axillary roll. Sterile prepping and draping. Soft tissue retraction and leg holding, manipulation and positioning during the procedure. The assistance was necessary for visualization during the procedure, final skin closure with immediate supervision if necessary. Final bandages and safe return to the hospital [facility] and to the post recovery unit. SIGNATURE: Ishaan Hayward MD PATIENT NAME: Leslie Davis DATE: May 13, 2018 TIME: 10:38 AM PAGER/CONTACT #: [facility] PT EDon 05-13-2018 PT ED HNO ID: [id number] Author: Guille Laboy) DIEUDONNE Chavez Service: Nursing Author Type: Registered Nurse Type: Patient Education Filed: 05/13/2018 7:50 AM Note Text: PRE OP LEARNING ASSESSMENT PROCEDURE/SURGERY: SURGERY: Left total hip replacement READINESS TO LEARN COGNITIVE ABILITY: Alert and oriented MOTIVATION TO LEARN: Eager FAMILY SUPPORT: High - Very involved in pt care PATIENT LEARNS BEST BY: Written Instruction - Hand-outs Verbal Instruction FACTORS AFFECTING LEARNING: None PHYSICAL LIMITATIONS AFFECTING LEARNING: None Electronically Signed By: Guille Chavez RN In Department: [facility] SURGERY Normal [facility] SURGICAL PATHOLOGYon 019 SURGICAL PATHOLOGY Specimen originated from [facility] Specimen #: [id number] Submitting Physician: ISHAAN HAYWARD MD FINAL DIAGNOSIS Left femoral head, arthroplasty - Degenerative joint disease. J/teresa 05/18/2018 Maritza Casillas M.D. (Electronic Signature) _ SPECIMEN SUBMITTED A: FEMORAL HEAD LEFT HIP CLINICAL DATA PRIMARY OSTEOARTHRITIS OF LEFT HIP, LMP: POSTMENOPAUSAL LEFT TOTAL HIP REPLACEMENT GROSS DESCRIPTION A. Received in formalin labeled with the patient's name and left femoral head is a femoral head measuring 5 x 4.4 x 4 cm. The articular surface shows an area of eburnation. Recognizable cartilage appears roughened and osteophyte formation is present. The femoral head is sectioned to reveal hard, trabecular bone underlying the areas of eburnation. No grossly necrotic bone is identified. Attached to the bone and within the container, there are multiple irregular, red-brown, rubbery tissue fragments. Blending Tank Tender Helper sections are submitted as follows: A1 soft tissue, A2 bone after decalcification. Gross examination performed at [facility], [address] [place] [id number] ALYSSA/lbk 05/13/2018 Date of Report: 05/18/2018 Date of Procedure: 05/13/2018 Date of Receipt: 05/13/2018 Submitted by: ISHAAN HAYWARD MD Location: 2E Diagnostic interpretation performed at [facility], [address] [place] [address]. [facility] Comment on above: Performed By: #### P ATHS ####[facility] [id number] [place], [place] [id number] THERAPY NTon 05-13-2018 THERAPY NT HNO ID: [id number] Author: Jody (Pt) Johnny Service: Physical Therapy Author Type: Physical Therapist Type: Therapy (PT/OT/Speech/Resp) Filed: 05/13/2018 5:38 PM Note Text: Physical Therapy Evaluation SERVICE DATE: 05/13/2018 SERVICE TIME: 1545 to 1621 ROOM: [id number] Recommended Discharge Disposition: Subacute/SNF Recommended Discharge Disposition Comments: Pt with decline in function, requires increased assist to complete functional activity indicating a need for continued therapy post acute stay. Anticipate progression to home with continued participation with PT during acute stay. Justification For Post Acute Needs: Anticipated community discharge;Good premorbid functional status;Good sitting tolerance;Living the community premorbidly;Willing to participate;May not tolerate higher intensity programing;Anticipate that patient will require daily (5x/wk) skilled therapy in a post-acute facility setting at the time of acute hospital discharge Recommended Discharge Equipment: No equipment needs anticipated PT Recommendations to Nursing: Transfer to/from chair;OOB for Meals;Sit at edge of bed;With assist of 1 person Device: Wheeled Walker PT 6 Clicks Score: 16 Precautions/Activity Restrictions: Total Hip Replacement;Weight Bearing Restrictions;Fall Risk;Lines/Tubes/Drain s Extremity With Weight Bearing Restricted: Left Lower Extremity Left Lower Extremity Weight Bearing Status: PWB (50#) Total Hip Replacement Precautions: Posterior ASSESSMENT : Patient presents with decreased strength, balance and endurance and with increased pain making functional activity difficult at this time. Pt is moderate assist with bed mobility, Peyton with transfers and gait. Pt is noted to be painful and groggy which is limiting ability to participate, however pt does report pt decreased from 10/10 to 6/10 post mobility. Pt participates throughout without adverse effects and follows cues appropriately however is placed back to bed due to grogginess. At this time pt would benefit from SNF post acute stay, however anticipate progression to home with continued participation. Patient Disposition at Start of Session: Supine in Bed Patient Disposition at End of Session: Supine in Bed;Call Pittman in Reach;SCDs (pillow between knees, ice applied) Tolerance Limited By Fatigue;Pain;Alertness Physical Therapy Problem List: Pain;Impaired Self Care;Decreased Activity Tolerance;Decreased Range Of Motion;Decreased Strength;Functional Mobility Impairment;Balance Impaired Patient /Caregiver Goals: Go Home (to friend's home) Goals for Plan of Care: Able to perform HEP with: Independent Transfer supine to/from sit with: Stand By Assistance (controls and rails allowed) Transfer sit to/from stand with: Stand By Assistance (LRAD, PWB LLE) Ambulate with: Stand By Assistance Distance: 150-200 Device: (LRAD, PWB LLE) Car transfer with: Verbal Cues Only (simulation or demonstration) Goal: Pt to demonstrate compliance with PWB and ALIYAH precautions to allow for proper healing Rehab Potential: Good PLAN: Treatment Frequency (times per week): 7;BID Current admission Treatment Interventions: Education;Joint Mobility;Strengthening ;Functional Mobility Training;Balance Training;Neuromuscular Re-education;Modalitie s Modalities: Ice Plan of Care developed with: Patient TREATMENT INTERVENTIONS: Therapy Diagnosis: Reduced mobility-other Interventions Provided: Evaluation;Therapeutic Activity (47763);Gait Training (02128) $ Evaluation-Low (77345) Billed Units: 1 unit Therapeutic Activity (72497) Treatment Minutes: 15 1 unit Skilled Intervention(s): Verbal cues and assist with LE management for unilateral bridging of LLE to scoot self sideways in supine Assist provided to upper back and verbal cues provided for effective technique with UEs to progress EOB scooting Instructed patient in supine to sit pushing with upper extremities to sit up with assist for trunk and LLE management, cues for effective use of UEs for assist Instructed patient in sit to supine using safe, effective technique with assist to trunk and LLE Cues for improved posture, increased use of UEs for assist to maintain standing balance Education: Pt educated in role of PT during acute stay and PT POC, weight bearing status, ALIYAH precautions with demonstrations provided, effects of nerve spinal, importance of OOB activity with nursing to reduce risk of functional decline, purpose of anti-embolic exercises and performs 10 reps ankle pumps, quad sets with 3-5 sec hold and glute sets and educated on parameters of performance, rationale for discharge recommendation of SNF with anticipated progression to home, use of call light 100% of the time for assist, parameters for safe home going, rationale for equipment recommendation 10 reps supine L heel slides performed within limited range Gait Training (06416) Treatment Minutes: 10 1 unit Skilled Intervention(s): Instruction in sit to stand technique with proper hand placement and body positioning at edge of bed/chair, cues for optimal LLE postioning, increased anterior weight shifting Instruction in stand to sit technique with lower extremities touching chair/bed and reaching back for surface Instruction in sequencing, gait pattern, Instruction in correction of gait deviations, Instruction in WB precautions and Instruction in use of equipment, cues for sequence and pattern Cues provided for sequencing, increased weight bearing in Ues for support Total Timed Code Treatment Minutes: 25 Total Treatment Time (minutes): 36 SUBJECTIVE: Current Hospital Course: Chart reviewed; Reason for Physical Therapy Consult : post L ALIYAH Relevant Past Medical History: Pt presenting s/p L ALIYAH. PMH: depression, septic joint, shingles, pt reporting R ALIYAH approx 1 year ago. Patient Report: Pt agreeable to PT, ok per nursing to treat. Home Environment Patient Lives With: Self/Alone (will be staying with a friend) Assistance Available: 24 Hour Entry To Home: (stair lift) Number Of Stairs To Bed/Bath: 0 Tub/Shower Type: walk in Laundry: friend to complete Equipment Owned: Cane;Commode-Bedside;S hower Chair;Wheeled Walker;Grab Bars-Shower;Hand Held Shower;Hospital Bed;Sock Aide;Long Handled Sponge;Engraver Optical Frames Prior Functional Level: Within Functional Limits Prior Functional Level Comments: Pt reports use of cane for approx the last year and walker for the last week, ind with ADLs, + driving, works in a [employer] shop, denies falls in last 6 months. OBJECTIVE: Range of Motion: ROM Limitation Comments ROM Limitation Comments: WFLs except L hip and knee flexin limited by approx 50% due to pain Strength: Right LE Measurement;Left LE Measurement Right Hip Flexion Strength: 3-/5 Right Knee Flexion Strength: 4-/5 Right Knee Extension Strength: 4-/5 Right Ankle Dorsiflexion Strength: 4/5 Left Hip Flexion Strength: 3-/5 Left Knee Flexion Strength: 3-/5 Left Knee Extension Strength: 3-/5 Left Ankle Dorsiflexion Strength: 3+/5 CURRENT FUNCTIONAL STATUS: Current Functional Mobility Assist Level Additional Information Rolling Supine to Sit Moderate Assistance Primary assist to trunk Sit to Supine Minimal Assistance Scooting Contact Guard Assistance Sit to Stand Minimal Assistance X 2 trials Stand to Sit Minimal Assistance Bed to Chair Minimal Assistance Bed To Chair Transfer Type: Stand Pivot Bed To Chair Transfer Equipment: Standard Walker;Gait Belt Toilet/Commode Gait Minimal Assistance Gait Device: Standard Walker Gait Distance (feet): 3 (steps [place] [facility] [place] Appears to maintain PWB throughout Stairs Curb Step Car Transfer Gait Deviations Left Lower Extremity: Weight bearing decreased;Stance time decreased;Heel strike during initial stance decreased;Push-off during terminal stance decreased;Knee flexion during stance increased General Gait Deviations: Madonna decreased Gait belt donned for OOB activity Balance: Static Sitting;Dynamic Sitting;Static Standing;Dynamic Standing Static Sitting Balance: Supervision Dynamic Sitting Balance: Stand By Assistance Static Standing Balance: Contact Guard Assistance Dynamic Standing Balance: Minimal Assistance -HLM: 4: Move to chair / commode Please see discipline specific clinical documentation flowsheet for complete details for this therapy evaluation/treatment. SIGNATURE: Jody Turner PT PATIENT NAME: Leslie Davis DATE: May 13, 2018 TIME: 5:30 PM [facility] XR HIP 1V LTon 05-13-2018 XR HIP 1V LT * * *Final Report* * * DATE OF EXAM: May 13 2018 10:01AM [facility] 5277 - XR HIP 1V LT / PROCEDURE REASON: ARTHROPLASTY LEFT TOTAL HIP JOINT FOR OSTEOARTHRITIS * * * * Physician Interpretation * * * * EXAMINATION: XR HIP 1V LT CLINICAL HISTORY: Left hip arthroplasty Technique: XR HIP 1V LT -- left hip with 1 views on 1 images Comparison: 11/29/2017 RESULT: Single view of the left hip demonstrates a left total hip arthroplasty in progress. The prosthetic acetabulum is in place. No acute fracture. Associated soft tissue changes are compatible with intraoperative nature of the radiograph. IMPRESSION: Refer to the result. Adult Care Manager: RONNELL Transcribe Date/Time: May 13 2018 10:31A Dictated by : CODY CASE MD This examination was interpreted and the report reviewed and electronically signed by: CODY CASE MD on May 13 2018 10:34AM EST [id number] [facility] XR PELVIS 1V APon 05-13-2018 XR PELVIS 1V AP * * *Final Report* * * DATE OF EXAM: May 13 2018 11:22AM [facility] 5239 - XR PELVIS 1V AP / PROCEDURE REASON: Post-operative / post-procedure assessment, asymptomatic * * * * Physician Interpretation * * * * EXAMINATION: XR PELVIS 1V AP CLINICAL HISTORY: POST OP Technique: XR PELVIS 1V AP --pelvis with 1 views on 1 images Comparison: 05/13/2018 at 0941 hours RESULT: Patient is status post left total hip arthroplasty. The orthopedic hardware appears intact. No acute fracture. Adjacent soft tissue changes are compatible with recent surgical procedure. Intact sacroiliac joints and pubic symphysis. Previous right hip arthroplasty is also noted. IMPRESSION: Status post left total hip arthroplasty. Adult Care Manager: PSCB Transcribe Date/Time: May 13 2018 11:24A Dictated by : CODY CASE MD This examination was interpreted and the report reviewed and electronically signed by: CODY CASE MD on May 13 2018 11:25AM EST [id number] [facility] NURSING PROGon 05-04-2018 Protein mass conc HNO ID: [id number] Author: Talya (Rn) DIEUDONNE Salazar Service: Nursing Author Type: Registered Nurse Type: Nursing Progress Note Filed: 05/04/2018 8:03 AM Note Text: PACC Nurse Progress Note 05/01/18 History AND Physical: PACC Visit Date: 05/01/18 Original HANDP Date: 05/01/18 ED visit Date: N/A Outside HANDP Scanned Date: N/A Labs Within Last 6 Months: CBC: Date 05/01/18 cbc/diff- wnl BMP/CMP: Date 05/01/18 bmp- Bun 29, within acceptable limits STAAMP: Date 05/01/18 negative TYPE AND SCREEN: Date 05/01/18 [place]: Date 01/05/18 05/01/18 iron,tibc, albumin, Vit 12, folate, retic Ferritin- elevated Imaging Within Last 12 Months: N/A Cardiac Testing: EKG in last 12 Months: Yes: Date: 05/14/2017, Comment: scanned in epic, NSR Last Menstrual Period: LMP Date: N/A Postmenopausal >1yr: Yes, S/P Hysterectomy: Yes BMI Percentile (PEDS): N/A BMI 37.8 Risk Assessment: N/A Anesthesia Review: FYI to Dr Summers....... HPI: Austin Flowers is a 62 yo female scheduled for PAC because of left total hip arthroplasty orginially scheduled back in January, however she had an anaphylactic shock to Lipitor and was admitted and on a ventilator for short period of time. Subsequently, she has fully recovered and recently has seen her part time as well and received clearance for procedure Narrative: See above Uses cane Pre-op Considerations: N/A Chart Check: COMPLETED Talya Salazar RN May 04, 2018 7:48 AM [facility] HISTORY PHYSICALon HISTORY PHYSICAL HNO ID: [id number] Author: Rebecca Sims) Jr Service: (none) Author Type: Nurse Practitioner Type: HANDP Filed: 05/01/2018 4:44 PM Note Text: HISTORY AND PHYSICAL EXAMINATION SERVICE DATE: 05/01/2018 SERVICE TIME: 3:30 PM PRIMARY CARE PHYSICIAN: Natalie Horner CNP REASON FOR VISIT: Leslie Davis is a 62 year old female who is scheduled for ARTHROPLASTY REPLACE JOINT TOTAL HIP at the request of Dr. Ishaan Hayward for consultation. My final recommendation will be communicated back to the requesting physician by way of shared medical record or letter. The patient has the following: ACTIVE PROBLEM LIST Obesity Right-Sided Low Back Pain With Right-Sided Sciatica Depression Seasonal Allergies Low Back Pain With Left-Sided Sciatica Primary Osteoarthritis of Left Hip Subjective CHIEF COMPLAINT: Pre-op exam: Primary osteoarthritis of left hip HPI: Austin Flowers is a 62 yo female scheduled for PAC because of left total hip arthroplasty orginially scheduled back in January, however she had an anaphylactic shock to Lipitor and was admitted and on a ventilator for short period of time. Subsequently, she has fully recovered and recently has seen her part time as well and received clearance for procedure. She presents c/o a >4 months history of left hip pain that has [...] HISTORY Procedure Laterality Date - CHOLECYSTECTOMY 1999 [place] - COLONOSCOPY 2013 normal, peformed by Dr. Nguyen - Wade TOTAL ABDOMINAL HYSTERECTOMY 2000 FAMILY HISTORY Problem Relation Age of Onset - Diabetes Mother - Breast Cancer Sister 61 - Diabetes Brother - Stroke Brother - Diabetes Brother - Cancer Father gastric - Coronary Artery Disease Father [place] x3 SOCIAL HISTORY: Social History Marital status: Single Spouse name: Years of education: Number of children: Social History Main Topics Smoking status: Never Smoker Smokeless tobacco: Never Used Alcohol use: No Drug use: No Sexual activity: Not Currently Prior to Admission medications as of 04/20/18 1238 Medication Sig Last Dose Taking omeprazole (PRILOSEC) 20 mg capsule Take 20 mg by mouth once daily. Bhzddgxhxinjv-Tn-Vuga- Minerals tab Take by mouth once daily. meloxicam (MOBIC) 15 mg tablet TAKE 1 TABLET EVERY DAY loratadine 10 mg cap Take 10 mg by mouth daily at bedtime. DULoxetine (CYMBALTA) 30 mg capsule Take 1 capsule by mouth once daily. No medication comments found. ALLERGIES Allergen Reactions - Lipitor [Atorvastat* Anaphylaxis REVIEW OF SYSTEMS: PAIN ASSESSMENT: Pain Pain Score: 5/10 Pain Location: Hip-Left Description: Aching Frequency: Continuous Intervention: Medication;Reposition; Relaxation General: No weight loss, malaise or fevers. 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 No history of respiratory/pulmonary symptoms or problems. SAGASTUME due to pain in hip Cardiovascular: Positive for: Recent cardiac arrest 01/26/2018, due to anaphylatic shock to Lipitor, Negative for CAD, CHF, PVD, Valvular Heart Disease Denies chest pain or sob. Denies hx of DVT/PE. 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 Psych: Depression on rx Musculoskeletal: See HPI Skin: Negative for lesions, rash and itching. Objective PHYSICAL EXAM: VITALS: BP 146/83 Pulse 74 Temp (Src) 97.5 (Tympanic) Resp 16 Ht 5' 2 (1.58m) Wt 207 lb (93.9kg) SpO2 96% BMI 37.85 kg/(m2). General: Alert and oriented Skin: Normal color, no rash, no lesions. HEENT: EOM, pupils equal, round and reactive. Cardiovascular: Normal S1 AND S2, no rubs, murmurs or gallops. No JVD. Pulse regular. Lungs: Normal breath sounds, no wheezes or crackles. Abdomen: Soft, non-tender, no rigidity. Extremities: No deformity, no edema or tenderness, no joint swelling or clubbing. Neurological: Normal cognition and motor skills. Pulses: Carotid and radial pulses normal +2. Diagnostic tests reviewed for today's visit: Lab Value Units Date High Low HB 12.9 g/dL 01/05/2018 15.5 11.5 HCT 39.3 % 01/05/2018 46.0 36.0 WBC 8.24 k/uL 01/05/2018 11.00 3.70 PLT 348 k/uL 01/05/2018 400 150 NA 140 mmol/L 01/05/2018 144 136 K 3.9 mmol/L 01/05/2018 5.1 3.7 GLUC 86 mg/dL 01/05/2018 99 74 BUN 21 mg/dL 01/05/2018 21 7 CREAT 0.77 mg/dL 01/05/2018 0.96 0.58 PTSEC No results within date range. INR No results within date range. APTT No results within date range. ALT 14 U/L 01/05/2018 38 7 AST 23 U/L 01/05/2018 35 13 TBILI 0.4 mg/dL 01/05/2018 1.3 0.2 TSH No results within date range. Lab Value Units Date High Low HCGQT No results within date range. UHCG No results within date range. HCG, BODY* No results within date range. Lab Value Units Date High Low ABORHD O POSI* no uni* 01/05/2018 ABSCREEN NEG no uni* 01/05/2018 No results found for: HBA1C Most recent labs Most recent imaging Most recent EKG: normal sinus rhythm, normal axis, normal intervals, reviewed by kitchen supervisor. All in Epic Assessment ASSESSMENT Patient has the following medical conditions which may affect nadira-operative course H/o Cardiac Arrest and ventilation s/p anaphylatic shock to Lipitor 01/26/2019, pulmonology clearance given Obesity-BMI 36.94 GERD-on rx Depression-on rx S/p RTHA Left hip pain METS: Take care of self; that is eating, dressing, bathing, using the toilet (2.75 METs) Walk a block or two on level ground (2.75 METs) Patient denies any chest pain or undue shortness of breath with the above physical activity. ASA Class: 3 ANESTHESIA FINDINGS: Intubation History: No history of difficult intubation Significant Anesthesia Considerations: None Airway Exam: General: Normal appearance Mallampati Score is CLASS II ULBT: Class I - Lower incisors can bite the upper lip above the hal line Neck: Normal appearance and function, Distance from hyoid to mentum during neck extension is at least 3 finger breaths Mouth: Normal tongue size Dentition: Intact Airway History: No abnormal airway history STOP BANG Score: Criteria: BMI > 35 Age over 50 (62 year old) Neck circumference > 15.75 inches Score = 3 PLAN This patient is optimally prepared for surgery pending LABS. CONSULTS: Patient does not require consults for optimization at this time. The Following Tests/Procedures Have Been Initiated: Orders Placed This Encounter STAPH AUREUS PCR IRON + TIBC FERRITIN BLD CBC + DIFF BMP TYPE + SCREEN,30 DAY Planned Anesthetic: Per anesthesia choice Instructions Given to Patient: Patient given verbal and written preop instructions and voices comprehension and compliance. SIGNATURE: Rebecca Norris APRN.CNP PATIENT NAME: Leslie Davis DATE: May 01, 2018 TIME: 4:30 PM PAGER/CONTACT #: [facility] Staph aureus PCRon 9 MRSA PCR Negative [facility] Comment on above: Performed By: #### S APCR #### [facility] [address] [place], [place] [id number] S aureus Spec Source Nasal [facility] Comment on above: Performed By: #### S APCR #### [facility] [address] [place] [phone] Staph aureus PCR Negative [facility] Comment on above: Performed By: #### S APCR #### [facility] [address] [place], [place] [phone] Type and SCR (30D)on 019 ABO/RH(D) Positive Normal [facility] Comment on above: Performed By: #### T SCR30 #### [facility] [address] [place] [address] HOSPon 04-21-2018 HOSP Patient:Kelsey Davis cc a MRN: Height:5' 2 (1.575 m) Weight:207 lb (93.895 kg) Outpatient Medications as of 05/13/18: omeprazole (PRILOSEC) 20 mg capsule Amemgttnwwrvc-Pl-Juam- Minerals tab meloxicam (MOBIC) 15 mg tablet loratadine 10 mg cap DULoxetine (CYMBALTA) 30 mg capsule Admission/Clinic Administered Medications as of 05/13/18: lactated ringers infusion ceFAZolin iv piggyback 2 g in D5W (iso-osmotic) 100 mL (ANCEF) Problem List: Obesity [E66.9] Right-sided low back pain with right-sided sciatica [M54.41] Depression [F32.9] Seasonal allergies [J30.2] Low back pain with left-sided sciatica [M54.42] Primary osteoarthritis of left hip [M16.12] Allergies: Lipitor [Atorvastatin Calcium] Date Verified: 05/13/18 Lab Values Lab Value Units Date High Low POTA* 4.7 mmol/L 05/01/2018 5.1 3.7 MARIPOSA* 42.3 % 05/01/2018 46.0 36.0 Progress Notes ([address]): RAINA Sims 04/28/2018 2:22 PM Signed TOTAL JOINT COMPLETE CARE PROGRAM PRE-OPERATIVE TEACHING Service Date: 04/28/2018 Service Time: 2:20 PM Date of : 1955 Gender: female Date of Surgery: 05/13/18 Procedure: Left Total Hip Replacement Complete Care Program was discussed with the patient: [employer] Operator Identification: Patient identified a lawn care specialist to help when discharged to home: going to [facility] Home Environment: Home Layout: trailer with lift in, Entry Steps: 0, Bedroom Location: 1st floor, Bathroom Location: 1st floor and tub shower. Pt owns cane, walker wheeled, raised toilet seat, shower chair. Discussed with patient importance of attending joint education class and provided date and times of class: YES declined, had ALIYAH in May 2017. Patient received Joint Education Binder: Yes Patient plans home discharge. States she went to outpt surgery after last ALIYAH. SIGNATURE: RAINA Sims PATIENT NAME: Leslie Davis DATE: April 28, 2018 TIME: 11:10 AM PAGER/CONTACT #: [phone] Progress Notes ([facility]): Monserrat Soto Ma 04/20/2018 2:24 PM Signed Please schedule patient for left ALIYAH at [facility] on 05/13/2018. Please schedule post op appointments in [place]. Received Pulmonary Clearance by fax today, sent for scanning. Jaquelin Allen [facility] 04/21/2018 10:49 AM Signed Surgical request completed, post ops made and mailed. Monserrat Soto Ma 04/21/2018 1:09 PM Signed Patient has been scheduled as requested on 05/13/2018. [facility] NURSING PROGon 01-06-2018 Protein mass conc HNO ID: [id number] Author: Deandra (Rn) DIEUDONNE Melendez Service: (none) Author Type: Registered Nurse Type: Nursing Progress Note Filed: 01/14/2018 4:32 PM Note Text: PACC Nurse Progress Note History AND Physical: PACC Visit Date: 01/05/2018 Original HANDP Date: 01/05/2018 ED visit Date: 11/29/2017 under care everywhere [place] ED for left hip pain Outside HANDP Scanned Date: N/A Labs Within Last 6 Months: CBC: Date 01/05/2018 WN BMP/CMP: Date 01/05/2018 WNL UA: Date 01/05/2018 see results, urine culture in process Urine C+S: Date 01/05/2018 < 10,000 CFU/ml normal urogenital travon STAAMP: Date 01/05/2018 negative TYPE AND SCREEN: Date 01/05/2018 in [facility] [place]: Date 01/05/2018 in [facility] Ferritin 01/05/2018=214.8. Iron and TIBC 01/05/2018 WNL Imaging Within Last 12 Months: X-ray Left hip results in [facility] Date of test: 12/17/2017 Left hip and pelvis results from 11/29/2017 scanned as external imaging in [facility] Cardiac Testing: EKG in last 12 Months: Yes: Date: 05/14/2017, Comment: scanned in [facility] NSR Last Menstrual Period: LMP Date: No LMP recorded. Hysterectomy Postmenopausal >1yr: Yes, S/P Hysterectomy: Yes BMI Percentile (PEDS): BMI 36.94 Weight 202# Risk Assessment: N/A Anesthesia Review: N/A Narrative: N/A Pre-op Considerations: Per PACC HANDP History Hysterectomy Weight 202# BMI 36.94 Chart Check: IN PROGRESS- HANDP needs completed and signed. Josie Hernandez RN January 07, 2018 6:31 AM January 14, 2018 4:31 PM HANDP is completed and signed. Chart check complete. Deandra Melendez RN [facility] Confirm Blood Typeon 018 ABO/RH(D) Positive Normal [facility] Comment on above: Performed By: #### C ONABO #### [facility] [address] [facility] [phone] Type and SCR (30D)on 018 ABO/RH(D) Positive Normal [facility] Comment on above: Performed By: #### T SCR30 #### [facility] [address] [facility] [phone] Encounters Encounter Date Encounter Type Care Provider Facility Start: 12-26-2022 End: 12-26-2022 ambulatory ISHAAN HAYWARD Facility:[facility] Start: 12-26-2022 End: 12-26-2022 Patient encounter procedure Ishaan Hayward MD Work Phone: Orthopaedics Comment on above: Pain in left hip (Pr imary Dx); Psoas tendinitis of left side Start: 12-26-2022 End: 12-26-2022 Subsequent hospital visit by physician Karis daniel Carrizales Work Phone: Radiology Comment on above: History of left hip replacement [Z96.642] Start: 05-13-2018 End: 05-15-2018 Evaluation and management of inpatient [facility] Start: 05-01-2018 Encounter for other preprocedural examination [facility] Start: 05-01-2018 End: 05-01-2018 Patient encounter procedure [facility] Procedures Date Procedure Procedure Detail Performing Clinician Start: 12-26-2022 Radex hip unilateral with pelvis 2-3 views Ishaan Hayward MD Work Phone: Start: 11-20-2020 Colonoscopy Ishaan aguilera MD Work Phone: Start: 05-01-2018 Antibody screen ISHAAN HAYWARD Comment on above: Performed By: #### T SCR30 #### [facility] [address] [facility] [phone] Start: 01-05-2018 Antibody screen ISHAAN HAYWARD Comment on above: Performed By: #### T SCR30 #### [facility] [address] [facility] [phone] Start: 09-26-2016 Lipid 1996 panel - S melissa or Plasma Ishaan Hayward MD Work Phone: Plan of Treatment Date Care Activity Detail Author Start: 03-13-2032 Urine microalbumin profile DTa P,Tdap,Td Vaccine (3 - Td or Tdap) [facility] Start: 11-20-2030 Colonoscopy Colonoscopy [facility] Start: 11-20-2030 Colorectal Cancer Screening Colorectal Cancer Screening [facility] Start: 11-22-2022 Influenza vaccination Influenza Vacc ine (#1) [facility] Start: 03-24-2022 Advance Directive Discussion Advance Directive Discussion [facility] Start: 12-28-2021 Pneumococcal Vaccine : 65+ (2 - PCV) Pneumococcal Vaccine: 65+ (2 - PCV) [facility] Start: 09-26-2021 Lipid 1996 panel - S melissa or Plasma Lipid Screening [facility] Start: 05-14-2021 Diabetes Screening Diabetes Screenin g [facility] Start: 08-30-2019 Bone Density Screening Bone Density Screening [facility] Start: 01-07-2018 Mammography Mammogram Screening [facility] Start: 2014 RSV Vaccine (1 - 1-d ose 60+ series) RSV Vaccine (1 - 1-dose 60+ series) [facility] Start: 2004 Shingrix Vaccine (1 of 2) Shingrix V accine (1 of 2) [facility] Start: 08-30-1999 Cologuard (FIT-DNA) Cologuard (FIT-D NA) [facility] Start: 08-30-[address] Colonography [facility] Start: 08-30-1999 Fecal Occult Blood Fecal Occult Bloo d [facility] Start: 08-30-1999 Sigmoidoscopy Sigmoidoscopy [facility] Start: 02-28-1956 Covid-19 Vaccine (#1) Covid-19 Vacci ne (#1) [facility] Immunizations Immunization Date Immunization Notes Care Provider Fa cility 03-13-2022 influenza virus vacc ine, unspecified formulation Ishaan Hayward MD Work Phone: [facility] 01-08-2017 influenza, injectabl e, quadrivalent, contains preservative Ishaan Hayward MD Work Phone: [facility] 05-27-2016 tetanus toxoid, redu grayson diphtheria toxoid, and acellular pertussis vaccine, adsorbed Ishaan Hayward MD Work Phone: [facility] Payers Date Payer Category Payer Medicare [facility] MEDICARE [facility] DUAL COMPLETE HMO POS SNP [id number] 2022-Present [phone] [address] [place] [address] Medicare [id number] 2022 Unknown [id number] 2020 Medicaid MEDICAID [facility] MEDICAID [id number] 2020-Present [phone] [address] [place] [address] Medicaid [id number] 2020 Medicaid [id number] Social History Date Type Detail Facility Start: 05-27-[address] [facility] Never smoked tobacco [facility] Work Phone: Start: 05-27-2016 Tobacco use and exposure Smokeless tobacco non-user [facility] Work Phone: Start: 12-26-2022 End: 01-16-2023 Alcohol intake Current non-drinker of alcohol (finding) [facility] Start: 12-26-2022 End: 01-16-2023 History of Social function [facility] Start: 12-26-2022 End: 01-16-2023 Tobacco use panel [facility] PHQ2 Score 0 [facility] Start: 1955 Sex Assigned At Not on file [facility] Medical Equipment Procedure Code Equipment Code Equipment Origin al Text Equipment Identifier Dates Stem Accolade Ii 5 127d Femoral - [id number] Start: 05-13-2018 Head V40 36mm 0m m Offset Taper Biolox Delta Femoral Hip - [id number] Start: 05-13-2018 Progress note 12-26-2022 Note Date & Type Note Facility 12-26-2022 Note HNO ID: [id number] Author: Edwige Lynn RT(R) Service: Radiology Author Type: Technologist Type: Progress Notes Filed: 12/26/2022 8:48 AM Note Text: Radiology Service Progress Note PATIENT NAME: Leslie Davis DATE OF SERVICE: December 26, 2022 TIME: 8:37 AM PATIENT IDENTITY VERIFICATION COMPLETED USING TWO (2) IDENTIFIERS: Name and Date of confirmed by patient verbally. FALL SCREENING: Has the patient had 2 falls in the last year or 1 fall with injury or currently using an Ambulatory Assistive Device (Walker, Cane, Wheelchair, Crutches, etc.)? No PATIENT GENDER DATA: Female. status: : No status: NO. PATIENT RELEVANT IMPLANT DATA REVIEWED: Yes RADIOLOGY DEPARTMENT: General X-ray: Exam(s) Completed: Pelvis X-Ray: Pelvis with Hip Left PERIPHERAL IV DATA: Not applicable SIGNED BY: RT Jayro(R) December 26, 2022 8:37 AM [facility] Progress note 12-26-2022 Note Date & Type Note Facility 12-26-2022 Note HNO ID: [id number] Author: Ishaan Hayward MD Service: ? Author Type: Physician Type: Progress Notes Filed: 01/16/2023 1:30 PM Note Text: Ishaan Hayward MD Department of Orthopaedics Orthopaedics [address] [facility] [address] Dept: [phone] Dept December 26, 2022 CHIEF COMPLAINT: Established Patient and Follow Up of the Left Hip (3.5 years post op Left ALIYAH/Xray today - 12/26/2022) HPI Patient presents with: Left Hip - Established Patient, Follow Up: 3.5 years post op Left ALIYAH Xray today - 12/26/2022 Patient is here for pain in her left hip. She [place]IYAH [place] [address] Hayward. States the hip was doing really well. 3 weeks ago she started noticing a sharp pain in the left hip when sneezing or with movement (household tasks). Patient denies noticing swelling in the left hip. Patient is retired. 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 AMB ROOMING INTAKE FLOWSHEET DATA Pain Pain Level: 4 Pain Location: Hip-Left Description: Shooting Duration Amount of Time: (Ongoing) Frequency: Intermittent Intervention/Comfort measure: Medication, Reposition, Relaxation ASSESSMENT: M25.552 Pain in left hip (primary encounter diagnosis) M76.12 Psoas tendinitis of left side PLAN: Prednisone, possible Psoas injection if possible. Inflammatory markers if we need to. OBJECTIVE: Ms. Leslie Davis is a pleasant 67 year old in no apparent distress. Gen:There were no vitals taken for this visit. nl development, obese, no deformities ENT: Normocephalic, normal hearing, moist mucosa CV: Pulses:Radial= 2+ and symmetric, capillary refill < 2 secs, no peripheral edema/varicosities Skin: no rash, bruising or lesions. Good turgor. Psych: cooperative and appropriate, alert and oriented x 3, good mood and affect. Musculoskeletal: Patient walks without antalgia. Gentle range of motion of the hip passively is without any pain. She does not really have any tenderness in the anterior or lateral portion of the hip. She does have quite exquisite pain on resisted hip flexion. Imaging: IMPRESSION: Status post left hip total replacement with stable alignment. Adult Care Manager: [facility] Transcribe Date/Time: Dec 27 2022 2:46P Dictated by : GENIA PATEL MD This examination was interpreted and the report reviewed and electronically signed by: GENIA PATEL MD on Dec 27 2022 2:50PM EST Results-Findings * * *Final Report* * * DATE OF EXAM: Dec 26 2022 8:48AM [id number] - XR HIP 3V PELV+ AP/LAT LT / PROCEDURE REASON: History of left hip replacement * * * * Physician Interpretation * * * * EXAM TITLE: XR HIP 3V PELV+ AP/LAT LT EXAM DATE/TIME: 12/26/2022 8:48 AM COMPARISON: X-ray hip on 11/02/2018 CLINICAL INDICATION/HISTORY: Hip replacement. TECHNIQUE: AP and crosstable lateral views of the left hip and AP view of the pelvis are presented. FINDINGS: Status post left hip total replacement with satisfactory alignment. Right hip total replacement is also noted. The surgical hardware is intact. The visualized pelvic bones are intact. The bones are somewhat osteopenic. There is no significant soft tissue swelling. Supporting Subjective Information Below: Past Surgical History: PAST SURGICAL HISTORY Procedure Laterality Date ARTHRP ACETBLR/PROX FEM PROSTC AGRFT/ALGRFT Left 05/13/2018 Hip replacement, total CHOLECYSTECTOMY 1999 [place] COLONOSCOPY 2012 normal, peformed by Dr. Nguyen COLONOSCOPY FLX DX W/COLLJ SPEC WHEN PFRMD 11/20/2020 F TOTAL ABDOMINAL HYSTERECTOMY 2001 TOTAL HIP REPLACEMENT Right 2018 Medications: Current Outpatient Medications Medication Sig losartan (COZAAR) 100 mg tablet Take 1 tablet by mouth every afternoon. escitalopram oxalate (LEXAPRO) 10 mg tablet Take 10 mg by mouth once daily. meloxicam (MOBIC) 15 mg tablet Take 15 mg by mouth once daily. fluticasone/vilanterol (BREO ELLIPTA INHALATION) Inhale 1 Puff as instructed once daily. omeprazole (PRILOSEC) 20 mg capsule Take 20 mg by mouth once daily. Mtbvbyagcghcm-Pg-Yvms-Minerals tab Take by mouth once daily. amoxicillin-clavulanic acid (AUGMENTIN) 875-125 mg per tablet Take 1 tablet by mouth twice daily. (Patient not taking: Reported on 12/26/2022) No current facility-administered medications for this visit. Allergies: Lipitor [Atorvastatin Calcium] ROS: General (negative for fatigue, malaise, weight loss/gain) HEENT (negative for headache, earache, recent vision changes, sinus pain, sore throat) Respiratory (no recent shortness of breath, hemoptysis) CV (negative for chest tightness, palpitations) Musculoskeletal (see HPI) Psych (no depression, anxiety) Ishaan Hayward MD [facility] History of Present illness Narrative 12-26-2022 Edwige Lynn, RT(R) - 12/26/2022 9:00 AM EDT Note Date & Type Note Facility 12-26-2022 History of Presen t illness Narrative Radiology Service Progress Note PATIENT NAME: Leslie Davis DATE OF SERVICE: December 26, 2022 TIME: 8:37 AM PATIENT IDENTITY VERIFICATION COMPLETED USING TWO (2) IDENTIFIERS: Name and Date of confirmed by patient verbally. FALL SCREENING: Has the patient had 2 falls in the last year or 1 fall with injury or currently using an Ambulatory Assistive Device (Walker, Cane, Wheelchair, Crutches, etc.)? No PATIENT GENDER DATA: Female. status: : No status: NO. PATIENT RELEVANT IMPLANT DATA REVIEWED: Yes RADIOLOGY DEPARTMENT: General X-ray: Exam(s) Completed: Pelvis X-Ray: Pelvis with Hip Left PERIPHERAL IV DATA: Not applicable SIGNED BY: RT Jayro(R) December 26, 2022 8:37 AM documented in this encounter [facility] History of Present illness Narrative 12-26-2022 Ishaan Hayward MD - 12/26/2022 8:45 AM EDT Note Date & Type Note Facility 12-26-2022 History of Presen t illness Narrative Ishaan Hayward MD Department of Orthopaedics Orthopaedics [address] [facility] [address] Dept: [phone] Dept December 26, 2022 CHIEF COMPLAINT: Established Patient and Follow Up of the Left Hip (3.5 years post op Left ALIYAH/Xray today - 12/26/2022) HPI Patient presents with: Left Hip - Established Patient, Follow Up: 3.5 years post op Left ALIYAH Xray today - 12/26/2022 Patient is here for pain in her left hip. She [place] ALIYAH [place] [address] Hayward. States the hip was doing really well. 3 weeks ago she started noticing a sharp pain in the left hip when sneezing or with movement (household tasks). Patient denies noticing swelling in the left hip. Patient is retired. 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 AMB ROOMING INTAKE FLOWSHEET DATA Pain Pain Level: 4 Pain Location: Hip-Left Description: Shooting Duration Amount of Time: (Ongoing) Frequency: Intermittent Intervention/Comfort measure: Medication, Reposition, Relaxation ASSESSMENT: M25.552 Pain in left hip (primary encounter diagnosis) M76.12 Psoas tendinitis of left side PLAN: Prednisone, possible Psoas injection if possible. Inflammatory markers if we need to. OBJECTIVE: Ms. Leslie Davis is a pleasant 67 year old in no apparent distress. Gen:There were no vitals taken for this visit. nl development, obese, no deformities ENT: Normocephalic, normal hearing, moist mucosa CV: Pulses:Radial= 2+ and symmetric, capillary refill < 2 secs, no peripheral edema/varicosities Skin: no rash, bruising or lesions. Good turgor. Psych: cooperative and appropriate, alert and oriented x 3, good mood and affect. Musculoskeletal: Patient walks without antalgia. Gentle range of motion of the hip passively is without any pain. She does not really have any tenderness in the anterior or lateral portion of the hip. She does have quite exquisite pain on resisted hip flexion. Imaging: IMPRESSION: Status post left hip total replacement with stable alignment. Adult Care Manager: [facility] Transcribe Date/Time: Dec 27 2022 2:46P Dictated by : GENIA PATEL MD This examination was interpreted and the report reviewed and electronically signed by: GENIA PATEL MD on Dec 27 2022 2:50PM EST Results-Findings * * *Final Report* * * DATE OF EXAM: Dec 26 2022 8:48AM [id number] - XR HIP 3V PELV+ AP/LAT LT / PROCEDURE REASON: History of left hip replacement * * * * Physician Interpretation * * * * EXAM TITLE: XR HIP 3V PELV+ AP/LAT LT EXAM DATE/TIME: 12/26/2022 8:48 AM COMPARISON: X-ray hip on 11/02/2018 CLINICAL INDICATION/HISTORY: Hip replacement. TECHNIQUE: AP and crosstable lateral views of the left hip and AP view of the pelvis are presented. FINDINGS: Status post left hip total replacement with satisfactory alignment. Right hip total replacement is also noted. The surgical hardware is intact. The visualized pelvic bones are intact. The bones are somewhat osteopenic. There is no significant soft tissue swelling. Supporting Subjective Information Below: Past Surgical History: PAST SURGICAL HISTORY Procedure Laterality Date ARTHRP ACETBLR/PROX FEM PROSTC AGRFT/ALGRFT Left 05/13/2018 Hip replacement, total CHOLECYSTECTOMY 1999 [place] COLONOSCOPY 2013 normal, peformed by Dr. Nguyen COLONOSCOPY FLX DX W/COLLJ SPEC WHEN PFRMD 11/20/2020 F TOTAL ABDOMINAL HYSTERECTOMY 2001 TOTAL HIP REPLACEMENT Right 2018 Medications: Current Outpatient Medications Medication Sig losartan (COZAAR) 100 mg tablet Take 1 tablet by mouth every afternoon. escitalopram oxalate (LEXAPRO) 10 mg tablet Take 10 mg by mouth once daily. meloxicam (MOBIC) 15 mg tablet Take 15 mg by mouth once daily. fluticasone/vilanterol (BREO ELLIPTA INHALATION) Inhale 1 Puff as instructed once daily. omeprazole (PRILOSEC) 20 mg capsule Take 20 mg by mouth once daily. Dhbueazaelbxa-Pb-Eubn-Minerals tab Take by mouth once daily. amoxicillin-clavulanic acid (AUGMENTIN) 875-125 mg per tablet Take 1 tablet by mouth twice daily. (Patient not taking: Reported on 12/26/2022) No current facility-administered medications for this visit. Allergies: Lipitor [Atorvastatin Calcium] ROS: General (negative for fatigue, malaise, weight loss/gain) HEENT (negative for headache, earache, recent vision changes, sinus pain, sore throat) Respiratory (no recent shortness of breath, hemoptysis) CV (negative for chest tightness, palpitations) Musculoskeletal (see HPI) Psych (no depression, anxiety) Ishaan Hayward MD documented in this encounter [facility] History of Past illness Narrative 12-24-2017 Note Date & Type Note Facility 12-24-2017 History of Past i llness Narrative Problem Noted Date Diagnosed Date Resolved Date Primary osteoarthritis of left hip 12/24/2017 05/14/2018 Overview: Added automatically from request for surgery [id number] documented as of this encounter (statuses as of 01/16/2023) [facility] History of Past illness Narrative 12-24-2017 Note Date & Type Note Facility 12-24-2017 History of Past i llness Narrative Problem Noted Date Diagnosed Date Resolved Date Primary osteoarthritis of left hip 12/24/2017 05/14/2018 Overview: Added automatically from request for surgery [id number] documented as of this encounter (statuses as of 01/27/2023) [facility] Evaluation note Note Date & Type Note Facility Evaluation note Diagnosis Pain in left hip- Primary Pain in joint, pelvic region and thigh Psoas tendinitis of left side Enthesopathy of hip region documented in this encounter [facility] Evaluation note Note Date & Type Note Facility Evaluation note Diagnosis History of left hip replacement documented in this encounter [facility] Reason for referral (narrative) Diagnostic Procedure Only (Routine) - Closed Note Date & Type Note Facility Reason for referral (narrati ve) Specialty Diagnoses / Procedures Referred By Conttony t Referred To Contact XR IMAGING Diagnoses History of left hip replacement Procedures XR HIP GENERAL 3V PELV/AP/LAT LEFT RADEX HIP UNILATERAL WITH PELVIS 2-3 VIEWS Ishaan Hayward MD [address] [place] [address] [place] [address] Referral ID Status Reason Start Date Expiration Date V isits Requested Visits Authorized [id number] Closed Auto-Generate d Referral 12/18/2022 01/17/2024 1 1 [facility] Reason for visit Narrative Diagnostic Procedure Only (Routine) - Closed Note Date & Type Note Facility Reason for visit Narrative Specialty Diagnoses / Procedures Referred By Hemanth mercado Referred To Contact XR IMAGING Diagnoses History of left hip replacement Procedures XR HIP GENERAL 3V PELV/AP/LAT LEFT RADEX HIP UNILATERAL WITH PELVIS 2-3 VIEWS Ishaan Hayward MD [address] [place] [address] [place] [address] Referral ID Status Reason Start Date Expiration Date V isits Requested Visits Authorized [id number] Closed Auto-Generate d Referral 12/18/2022 01/17/2024 1 1 [facility] Summary Purpose Family History No Family History Records FoundNo Family History Records Found Advance Directives No Advanced Directives Records FoundNo Advanced Directives Records Found Hospital Course Note HNO ID: [id number] Author: Mk bernal (Human Resource Internship) Grater Service: Orthopaedic Surgery Author Type: Nurse Practitioner Type: Discharge Summaries Filed: 05/15/2018 8:48 AM Note Text: DISCHARGE SUMMARY PATIENT NAME: Leslie Davis ADMISSION DATE: 05/13/2018 DISCHARGE DATE: 05/15/2018 PATIENT DISCHARGE SUMMARY C O N F I D E N T I A L I N F O R M A T I O N The following is a brief overview of your hospitalization. Some of the information contained on this summary may be confidential. This information should be kept in your records and should be shared with your regular doctor. These instructions explain what you or your lawn care specialist need to do to continue your care at home or at another healthcare facility ? Please go over these instructions with your nurse and lawn care specialist. ? If you are not sure about something, please ask. Highest Readmission Risk Score: 6 The 30 day readm (more content not included)... Additional Source Comments INFORMATION SOURCE (unrecogn ized section and content) DATE CREATED AUTHOR 05/18/2018 [facility] DATE CREATED AUTHOR 'Mk RODRIGUEZ ATION 01/18/2023 [facility] Source Comments (unrecognize d section and content) In the event this informatio n is protected by the Federal Confidentiality of Alcohol and Drug Abuse Patient Records regulations: The Federal rules restrict any use of the information to criminally investigate or prosecute any alcohol or drug abuse patient.[facility] the event this information is protected by the Federal Confidentiality of Alcohol and Drug Abuse Patient Records regulations: The Federal rules restrict any use of the information to criminally investigate or prosecute any alcohol or drug abuse patient.[facility] Reason for Visit (unrecogniz ed section and content) Reason Comments Established Patient 3.5 years post op Le ft THAXray today - 12/26/2022 Follow Up 3.5 years post op Le ft ALIYAHXrheladio today - 12/26/2022 Care Teams (unrecognized sec tion and content) [employer] [employer] Relationship Specialty Start Date End Date Maritza Terry DO PCP - General Family Medicine 11/06/20 [employer] [employer] Relationship Specialty Start Date End Date Maritza Terry DO PCP - General Family Medicine 11/06/20 FOR RECORDS PERTAINING TO PATIENTS WHO ARE OR HAVE BEEN ENROLLED IN A CHEMICAL DEPENDENCY/SUBSTANCEABUSE PROGRAM, SOME INFORMATION MAY BE OMITTED. This clinical summary was aggregated from multiple sources. Caution should be exercised in using it in the provision of clinical care. This summary normalizes information from multiple sources, and as a consequence, information in this document may materially change the coding, format and clinical context of patient data. In addition, data may be omitted in some cases. CLINICAL DECISIONS SHOULD BE BASED ON THE PRIMARY CLINICAL RECORDS. [facility]. provides no warranty or guarantee of the accuracy or completeness of information in this document.
== END | disposition home or self-care (01) ==
LOC: MTRAD 16:42
PROVIDERS: PCP Family Medicine; Referring Provider Family Medicine; Visit Provider Family Medicine
DX: J20.9 Acute bronchitis, unspecified (principal)
CPT/HCPCS: 71046

== ENCOUNTER 2024-03-09 00:20 | Inpatient (IN) | payer MEDICARE, SELFPAY ==
[2024-03-09] VITALS (20 sets, daily range): BP systolic 102–193; BP diastolic 58–111; PULSE 87–120; RESP 16–22; TEMP 36.5–37.2; O2SAT 81–97; BMI 42.3; BMI 39.7
[2024-03-09] MEDS: Ondansetron ODT 4 MG Tablet PO (00:50)
--- NOTE | 2024-03-09 00:58 | RAD_ITS ---
STUDY: X-RAY - LUMBAR SPINE REASON FOR EXAM: Female, 68 years old patient with sciatica. TECHNIQUE: 3 view(s) of the lumbar spine were obtained. COMPARISON: Radiographs of the lumbar spine dated July 28, 2023. FINDINGS: There is an exaggerated lumbar lordosis. There is no substantial scoliosis. There is a normal alignment of the vertebrae. Normal vertebral bodies and endplates. There is multi-level degenerative disc disease with multi-level disc space narrowing. There is no demonstrated fracture. There is moderately severe multilevel degenerative arthropathy of facet joints. There is atherosclerotic calcification of the abdominal aorta without a demonstrated aneurysm. Patient has bilateral total hip arthroplasties. RAD/Lumbar Spine 2 or 3 Views IMPRESSION: 1. Multilevel degenerative changes of the lumbar spine. 2. No obvious acute compression or displaced fracture. Electronically Signed: Vianca Kaur MD at 4:13 EST ,
--- NOTE | 2024-03-09 01:01 | EX.ED.DYSGE1 ---
HPI <Dr. Ronak Barboza DO - Last Filed: 03/09/24 22:27> History of Present Illness Chief Complaint: Lower Extremity Injury Informant: patient Narrative Narrative: Brought in by EMS sudden pain down her left hip behind her leg while getting ready for bed at 10:30 PM. States tried to lift her leg so he had pain there is mild pain in her back. No loss of bowel or bladder control. No history of similar. No diabetes history. Pain causing her to vomit. History of hypertension and arthritis on medications. Prior similar symptoms: No PFSH <Dr. Ronak Barboza DO - Last Filed: 03/09/24 22:27> PFSH Medical History Anxiety and depression THIAGO (obstructive sleep apnea) Hypertension Asthma Mild pulmonary arterial systolic hypertension Varicose vein of leg Wears glasses Arthritis History of diverticulitis COPD (chronic obstructive pulmonary disease) Obesity Hx of cardiac arrest (01/2018) GERD (gastroesophageal reflux disease) Left rotator cuff tear Kidney stone Anaphylactic reaction Osteoarthritis Home Medications ?Medication ?Instructions ?Recorded ?Last Taken ?Type loratadine 10 mg capsule 10 mg PO DAILY PRN Allergies 05/14/17 Unknown History meloxicam 15 mg tablet 7.5 mg PO BID bone health 02/10/18 11/25/19 History multivitamin (Multiple Vitamins 1 tab PO DAILY supplement 02/10/18 11/25/19 History tablet) escitalopram oxalate 5 mg tablet 5 mg PO DAILY mental health 11/26/19 11/25/19 History albuterol sulfate 90 mcg/actuation 2 puff inhalation Q6H PRN SOB 07/18/20 11/20/20 History aerosol inhaler (ProAir HFA) fluticasone furoate 100 1 inh inhalation DAILY #60 ea 03/26/23 Unknown Rx mcg-vilanterol 25 mcg/dose inhalation powder (Breo Ellipta) losartan 100 mg tablet 100 mg PO DAILY #90 tabs 04/10/23 Unknown Rx hydrocodone-acetaminophen 5-325mg 1 tab PO Q4H PRN PRN Pain 3 days 07/28/23 Unknown Rx 5mg-325mg #10 TABLETS Allergy/AdvReac Type Severity Reaction Status Date / Time Laurdee-QGG-YuO Reductase Allergy Severe Anaphylaxis Verified 03/09/24 00:21 Inhibitor (Vmvdyia-Oun-Fia Reductase Inhibitor) Family History Father Stomach cancer Heart problem Mother Diabetes Brother Diabetes Sister Breast cancer Surgical History History of colonoscopy History of total right hip replacement H/O: hysterectomy Hx of cholecystectomy History of hip replacement Social History housing: apartment current occupational status: employed pets and animals: No Smoking Status: Never smoker second hand exposure: No alcohol intake: never substance use type: does not use ROS <Dr. Ronak Barboza DO - Last Filed: 03/09/24 22:27> ROS ED Constitutional Constitutional ED: Denies chills, fever(s) or sweats Eyes Eyes: Denies change in vision ENT ENT ED: Denies dysphagia or sore throat Cardiovascular Cardiovascular: Denies chest pain, leg edema, palpitations or racing heartbeat Respiratory/Chest Respiratory/Chest: Denies cough, dyspnea or dyspnea on exertion Gastrointestinal Gastrointestinal: Reports nausea and vomiting; Denies abdominal pain or diarrhea Genitourinary Genitourinary ED: Denies dysuria, hematuria or urinary frequency Musculoskeletal Musculoskeletal: Reports back pain; Denies extremity pain or neck pain Integumentary Denies rash or wounds Neurologic Neurologic: Denies headache(s), paresthesias or weakness EXAM <Dr. Ronak Barboza DO - Last Filed: 03/09/24 22:27> Physical Exam Const Vital Signs: 03/09/24 00:21 03/09/24 00:26 03/09/24 00:46 Temperature 98.2 F 98.2 F Temperature Source Axillary Axillary Pulse Rate 98 87 Respiratory Rate 18 18 Blood Pressure 193/111 H 193/111 H 146/80 H Blood Pressure Mean 138 138 102 Pulse Ox 93 96 Oxygen Delivery Method Room Air Room Air Oxygen Flow Rate (L/min) 03/09/24 01:25 03/09/24 01:36 03/09/24 01:36 Temperature 98.2 F Temperature Source Axillary Pulse Rate 120 H Respiratory Rate 18 Blood Pressure 139/77 H Blood Pressure Mean 97 Pulse Ox 92 85 91 Oxygen Delivery Method Room Air Room Air Nasal Cannula Oxygen Flow Rate (L/min) 2 03/09/24 02:00 03/09/24 03:00 03/09/24 04:00 Temperature 99.0 F 99.0 F 99.0 F Temperature Source Oral Oral Oral Pulse Rate 98 99 102 H Respiratory Rate 18 18 18 Blood Pressure 120/85 H 155/58 H 130/86 H Blood Pressure Mean 96 90 100 Pulse Ox 96 92 97 Oxygen Delivery Method Nasal Cannula Nasal Cannula Nasal Cannula Oxygen Flow Rate (L/min) 2 2 2 03/09/24 05:00 03/09/24 06:20 03/09/24 06:39 Temperature 99.0 F Temperature Source Oral Pulse Rate 102 H 102 H Respiratory Rate 18 16 Blood Pressure 131/75 H 140/62 H Blood Pressure Mean 93 88 Pulse Ox 96 97 81 Oxygen Delivery Method Nasal Cannula Room Air Room Air Oxygen Flow Rate (L/min) 2 03/09/24 06:39 03/09/24 08:00 Temperature 98.6 F Temperature Source Oral Pulse Rate 104 H Respiratory Rate 22 H Blood Pressure 141/86 H Blood Pressure Mean 104 Pulse Ox 95 95 Oxygen Delivery Method Nasal Cannula Nasal Cannula Oxygen Flow Rate (L/min) 2 2 Positive well nourished and well developed Constitutional Narrative: Uncomfortable with movement. General Appearance ED: well developed HEENT Reports moist mucous membranes normocephalic and atraumatic Eyes EOMs intact bilaterally and conjunctivae normal General Eye ED: Yes normal appearance of both eyes Neck no lymphadenopathy and supple General: Negative for tenderness Chest Wall Chest: Negative for tenderness Resp normal respiratory effort and normal air movement Effort and Inspection: symmetric chest movement; Negative for respiratory distress Cardio regular rhythm and no murmurs Rate: tachycardic Peripheral Pulses: pulses 2+ throughout GI normal to inspection, nondistended, normoactive bowel sounds and non-tender Palpation: Negative for guarding or rebound tenderness present Back/Spine Back/Spine Narrative: Tender palpation left lumbar straight leg test aggravated pain in her back. No pain down the legs. Extremity normal to inspection General Extremety ED: Negative for edema or tenderness General Extremity: Negative for edema Neuro oriented x3 and no sensory deficits noted Sensorium / Orientation: awake and alert Skin no rashes or lesions noted and no wounds <Dr. Jake Calabrese, DO - Last Filed: 03/09/24 09:07> Physical Exam Const Vital Signs: 03/09/24 00:21 03/09/24 00:26 03/09/24 00:46 Temperature 98.2 F 98.2 F Temperature Source Axillary Axillary Pulse Rate 98 87 Respiratory Rate 18 18 Blood Pressure 193/111 H 193/111 H 146/80 H Blood Pressure Mean 138 138 102 Pulse Ox 93 96 Oxygen Delivery Method Room Air Room Air Oxygen Flow Rate (L/min) 03/09/24 01:25 03/09/24 01:36 03/09/24 01:36 Temperature 98.2 F Temperature Source Axillary Pulse Rate 120 H Respiratory Rate 18 Blood Pressure 139/77 H Blood Pressure Mean 97 Pulse Ox 92 85 91 Oxygen Delivery Method Room Air Room Air Nasal Cannula Oxygen Flow Rate (L/min) 2 03/09/24 02:00 03/09/24 03:00 03/09/24 04:00 Temperature 99.0 F 99.0 F 99.0 F Temperature Source Oral Oral Oral Pulse Rate 98 99 102 H Respiratory Rate 18 18 18 Blood Pressure 120/85 H 155/58 H 130/86 H Blood Pressure Mean 96 90 100 Pulse Ox 96 92 97 Oxygen Delivery Method Nasal Cannula Nasal Cannula Nasal Cannula Oxygen Flow Rate (L/min) 2 2 2 03/09/24 05:00 03/09/24 06:20 03/09/24 06:39 Temperature 99.0 F Temperature Source Oral Pulse Rate 102 H 102 H Respiratory Rate 18 16 Blood Pressure 131/75 H 140/62 H Blood Pressure Mean 93 88 Pulse Ox 96 97 81 Oxygen Delivery Method Nasal Cannula Room Air Room Air Oxygen Flow Rate (L/min) 2 03/09/24 06:39 03/09/24 08:00 Temperature 98.6 F Temperature Source Oral Pulse Rate 104 H Respiratory Rate 22 H Blood Pressure 141/86 H Blood Pressure Mean 104 Pulse Ox 95 95 Oxygen Delivery Method Nasal Cannula Nasal Cannula Oxygen Flow Rate (L/min) 2 2 MDM <Dr. Ronak Barboza, DO - Last Filed: 03/09/24 22:27> MDM MDM Narrative Medical decision making narrative: Interventions / MDM: Differential diagnosis: Sciatica left side, hypoxia, history of sleep apnea Diagnosis considered but do not suspect: No cauda equina symptoms. My EKG interpretation: Sinus 102, no ST changes isolated T wave inversion lead III nonspecific. QTc 440. Imaging independently reviewed and interpreted by myself: 3 view lumbar spine: Degenerative changes noted. Bilateral hip arthroplasties. Two-view chest x-ray: No infiltrates, vascular congestion per radiology. CT angiogram chest: Pending External documents reviewed: N/A Test considered but not ordered:N/A ED course: Patient sudden pain legs with back pain while getting ready for bed. Concern for sciatica symptoms with pain inducing tachycardia and nausea and vomiting. Patient was given oral Zofran on arrival by nursing due to busy department. Will establish IV due to tachycardia will give Solu-Medrol and morphine. Will check labs and lumbar spine x-ray. Will reevaluate. 0345: Blood pressure heart rate improved on reevaluation. Symptoms improved. Labs white count 13.4 hemoglobin 13.3 creatinine 0.95. Sodium 141 potassium 4.5. Discussed sciatica symptoms with the patient. Will ambulate. 0405: Patient was hypoxic after morphine 85%. On ambulation nursing reports she was 88%. She denies dyspnea with the ambulation. She reports mild cough recently. Will check two-view chest x-ray to reevaluate. 0530: Chest x-ray possible vascular congestion. No infiltrates. Attempted to ambulate again and she dropped down to 86% per nursing she appeared dyspneic. She denies recent travel or surgeries. No history of PE or DVT. And secondary hypoxia will check EKG, add BNP and troponin. And CTA chest to rule out PE as she was reporting no dyspnea. Will reevaluate her pulse ox. She does not smoke. She does report sleep apnea history, currently suggesting her fitting of mask to use. She does not wear home oxygen. 0745: Troponin negative. BNP pending. CTA chest results pending. Currently on 2 L oxygen. Patient signed out to morning physician. Re-evaluation: stable Disposition discussed with patient/family/significant other: Patient Case discussed with consulting clinician: N/A This note was generated with [employer] dictation software. It may contain incorrect words, spelling, and punctuation that were not noted in checking the note before signing. Update: 0900 hrs. Patient's CTA revealed mild vascular congestion. BNP is at 39.2. patient was 94-95% on room air at rest. She ambulated approximately 25 feet became hypoxic to the 80s and dyspneic. She states that this is very abnormal for her. 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 Her sciatica is better. At this point given the hypoxia and the dyspnea plan will be for admission Lab Data Attestation: I reviewed the patient's lab results. Labs: Laboratory Results - last 24 hr 03/09/24 01:14 WBC 13.4 H RBC 4.07 L Hgb 13.3 Hct 39.9 MCV 98.0 MCH 32.7 H MCHC 33.3 RDW Std Deviation 44.9 H RDW Coeff of Juan Alberto 12.5 Plt Count 315 MPV 9.8 Immature Gran % (Auto) 0.300 Neut % (Auto) 89.9 H Lymph % (Auto) 3.8 L Wayne % (Auto) 5.0 Eos % (Auto) 0.8 Baso % (Auto) 0.2 Absolute Neuts (auto) 12.1 H Absolute Lymphs (auto) 0.51 L Nucleated RBC % 0 Sodium 141 Potassium 4.5 Chloride 109 H Carbon Dioxide 28.0 Anion Gap 4 L BUN 29 H Creatinine 0.95 Estim Creat Clear Calc 63.58 Est GFR (MDRD) Af Amer 75 Est GFR (MDRD) Non-Af 62 BUN/Creatinine Ratio 30.4 H Glucose 128 H Calcium 9.0 Troponin I High Sens < 3 L B-Natriuretic Peptide 39.2 Radiography Diagnostic Testing: Clinical Impression(s) from Imaging Studies Lumbar Spine X-Ray 03/09/24 00:58 IMPRESSION: 1. Multilevel degenerative changes of the lumbar spine. 2. No obvious acute compression or displaced fracture. Electronically Signed: Vianca Kaur MD at 4:13 EST Reading Location ID and State: [facility] / [place] , Service support , Chest X-Ray 03/09/24 04:10 IMPRESSION: Borderline cardiomegaly and mild pulmonary congestion. Electronically Signed: Vianca Kaur MD at 5:30 EST , Chest CTA 03/09/24 05:48 IMPRESSION: 1. No CTA demonstrated pulmonary embolism or arterial dissection. 2. Bilateral basilar dependent atelectasis. 3. Mild pulmonary vascular congestion. Electronically Signed: Vianca Kaur MD at 8:27 EST , <Dr. Jake Calabrese, DO - Last Filed: 03/09/24 09:07> MDM MDM Narrative Medical decision making narrative: Interventions / MDM: Differential diagnosis: Sciatica left side, hypoxia, history of sleep apnea Diagnosis considered but do not suspect: No cauda equina symptoms. My EKG interpretation: Sinus 102, no ST changes isolated T wave inversion lead III nonspecific. QTc 440. Imaging independently reviewed and interpreted by myself: 3 view lumbar spine: Degenerative changes noted. Bilateral hip arthroplasties. Two-view chest x-ray: No infiltrates, vascular congestion per radiology. CT angiogram chest: Pending External documents reviewed: N/A Test considered but not ordered:N/A ED course: Patient sudden pain legs with back pain while getting ready for bed. Concern for sciatica symptoms with pain inducing tachycardia and nausea and vomiting. Patient was given oral Zofran on arrival by nursing due to busy department. Will establish IV due to tachycardia will give Solu-Medrol and morphine. Will check labs and lumbar spine x-ray. Will reevaluate. 0345: Blood pressure heart rate improved on reevaluation. Symptoms improved. Labs white count 13.4 hemoglobin 13.3 creatinine 0.95. Sodium 141 potassium 4.5. Discussed sciatica symptoms with the patient. Will ambulate. 0405: Patient was hypoxic after morphine 85%. On ambulation nursing reports she was 88%. She denies dyspnea with the ambulation. She reports mild cough recently. Will check two-view chest x-ray to reevaluate. 0530: Chest x-ray possible vascular congestion. No infiltrates. Attempted to ambulate again and she dropped down to 86% per nursing she appeared dyspneic. She denies recent travel or surgeries. No history of PE or DVT. And secondary hypoxia will check EKG, add BNP and troponin. And CTA chest to rule out PE as she was reporting no dyspnea. Will reevaluate her pulse ox. She does not smoke. She does report sleep apnea history, currently suggesting her fitting of mask to use. She does not wear home oxygen. 0745: Troponin negative. BNP pending. CTA chest results pending. Currently on 2 L oxygen. Re-evaluation: stable Disposition discussed with patient/family/significant other: Patient Case discussed with consulting clinician: N/A This note was generated with [employer] dictation software. It may contain incorrect words, spelling, and punctuation that were not noted in checking the note before signing. Update: 0900 hrs. Patient's CTA revealed mild vascular congestion. BNP is at 39.2. patient was 94-95% on room air at rest. She ambulated approximately 25 feet became hypoxic to the 80s and dyspneic. She states that this is very abnormal for her. 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 Her sciatica is better. At this point given the hypoxia and the dyspnea plan will be for admission History & Record Review Discussion w/independent historian: Patient Lab Data Labs: Laboratory Results - last 24 hr 03/09/24 01:14 WBC 13.4 H RBC 4.07 L Hgb 13.3 Hct 39.9 MCV 98.0 MCH 32.7 H MCHC 33.3 RDW Std Deviation 44.9 H RDW Coeff of Juan Alberto 12.5 Plt Count 315 MPV 9.8 Immature Gran % (Auto) 0.300 Neut % (Auto) 89.9 H Lymph % (Auto) 3.8 L Wayne % (Auto) 5.0 Eos % (Auto) 0.8 Baso % (Auto) 0.2 Absolute Neuts (auto) 12.1 H Absolute Lymphs (auto) 0.51 L Nucleated RBC % 0 Sodium 141 Potassium 4.5 Chloride 109 H Carbon Dioxide 28.0 Anion Gap 4 L BUN 29 H Creatinine 0.95 Estim Creat Clear Calc 63.58 Est GFR (MDRD) Af Amer 75 Est GFR (MDRD) Non-Af 62 BUN/Creatinine Ratio 30.4 H Glucose 128 H Calcium 9.0 Troponin I High Sens < 3 L B-Natriuretic Peptide 39.2 Radiography Diagnostic Testing: Clinical Impression(s) from Imaging Studies Lumbar Spine X-Ray 03/09/24 00:58 IMPRESSION: 1. Multilevel degenerative changes of the lumbar spine. 2. No obvious acute compression or displaced fracture. Electronically Signed: Vianca Kaur MD at 4:13 EST , Chest X-Ray 03/09/24 04:10 IMPRESSION: Borderline cardiomegaly and mild pulmonary congestion. Electronically Signed: Vianca Kaur MD at 5:30 EST , Chest CTA 03/09/24 05:48 IMPRESSION: 1. No CTA demonstrated pulmonary embolism or arterial dissection. 2. Bilateral basilar dependent atelectasis. 3. Mild pulmonary vascular congestion. Electronically Signed: Vianca Kaur MD at 8:27 EST , Discharge Plan Dx/Rx/DC Orders Clinical Impression: Left sided sciatica, SOB (shortness of breath), Apnea, sleep, Hypoxia Disposition Disposition: Acute Care Hospital [facility] Discharge Date/Time: 03/09/24 09:43
[2024-03-09] MEDS: Morphine 4 MG/ML Syringe IV (01:15)
[2024-03-09] MEDS: MethylPREDNISolone 125 MG/2 ML Vial IV (01:15)
[2024-03-09] MEDS: Ondansetron 4 MG/2 ML Vial IV (01:27)
[2024-03-09 01:30] LABS: Absolute Lymphocyte Count 0.51 X10^3/uL (0.83-4.51); Absolute Neutrophil Count 12.1 X10^3/uL (2.0-7.7); Basophil# 0.03 X10^3/uL; Basophil% 0.2 % (0-1); Eosinophil# 0.11 X10^3/uL; Eosinophils% 0.8 % (0-5); Hematocrit 39.9 % (37-47); Hemoglobin 13.3 g/dL (12.0-15.0); Lymphocyte # 0.51 X10^3/ul (0.83-4.51); Lymphocyte % 3.8 % (19-41); Mean Corp Hgb Conc 33.3 g/dL (32-36); Mean Corpuscular Hgb 32.7 pg (27.0-32.0); Mean Platelet Vol. 9.8 fl (6.2-12.0); Monocyte# 0.67 X10^3/uL; NRBC Flagged by Analyzer 0 % (0-5); Neutrophil # 12.08 X10^3/uL (2.7-7.7); Neutrophil % 89.9 % (47-70); POSITIVE DIFFERENTIAL YES; Platelet Count 315 K/mm3 (150-450); RBC Distribution Width CV 12.5 % (11.6-14.6); RBC Distribution Width SD 44.9 fl (35.1-43.9); Red Blood Count 4.07 M/mm3 (4.2-5.4); White Blood Count 13.4 K/mm3 (4.4-11.0)
[2024-03-09 01:44] LABS: Anion Gap 4 (5-15); BUN 29 mg/dL (7-18); BUN/Creat Ratio 30.4 RATIO (10-20); Chloride 109 mmol/L (98-107); Creatinine, Serum 0.95 mg/dL (0.55-1.02); EST Glomerular Filtration Rate 62 mL/min (>60); Est Glom Filt Rate - Afr Amer 75 mL/min (>60); Estimated Creatinine Clearance 63.58 ml/min; Glucose 128 mg/dL (74-106); Potassium 4.5 mmol/L (3.5-5.1); Sodium Level 141 mmol/L (136-145)
--- NOTE | 2024-03-09 04:10 | RAD_ITS ---
STUDY: X-RAY CHEST REASON FOR EXAM: Female, 68 years old patient with cough. TECHNIQUE: PA and lateral views of the chest. COMPARISON: Chest radiograph dated March 15, 2024. FINDINGS: Cardiac monitoring leads are present. The lungs are underexpanded with crowding of the bronchovascular markings. There is right basilar subsegmental atelectasis. There is peribronchial cuffing. There is no demonstrated pleural abnormality. There is borderline cardiomegaly. Normal mediastinum and favio. There is prominence of the pulmonary hilar arteries with peripheral pulmonary vascular congestion. There is atherosclerotic tortuosity of the aortic arch and descending thoracic aorta. There is demineralization of the osseous structures. Normal visualized ribs, clavicles, and shoulders. There is no demonstrated abnormality of the visualized soft tissue structures of the upper abdomen. RAD/Chest PA and Lateral IMPRESSION: Borderline cardiomegaly and mild pulmonary congestion. Electronically Signed: Vianca Kaur MD at 5:30 EST ,
--- NOTE | 2024-03-09 05:48 | CT_ITS ---
STUDY: CTA CHEST REASON FOR EXAM: Female, 68 years old patient with hypoxia. RADIATION DOSAGE (If Supplied By Facility): CTDIvol = ( 13.76 ) mGy, DLP = ( 501.29 ) mGycm TECHNIQUE: The examination was performed with the intravenous administration of 100 mL of IV Isovue-370. Post-processing of the angiographic images was performed, with multiplanar reformation and 3D reconstruction. Individualized dose optimization techniques were used for this CT. COMPARISON: None. FINDINGS: Normal enhancement of the main pulmonary artery and right and left pulmonary arteries. Normal enhancement of the bilateral peripheral pulmonary arteries. There is no demonstrated pulmonary embolism. There is prominence of the main pulmonary arteries with peripheral pulmonary vascular congestion. There is atherosclerotic calcification of the aortic arch with tortuosity. There is no demonstrated aortic dissection. There is cardiomegaly. Normal mediastinum. Normal hilar regions. Normal visualized trachea and bronchi. The lungs are under expanded. There is bilateral basilar dependent atelectasis. Lungs are otherwise clear. Normal pleura. Normal chest wall structures. Appears to be a right scapular fracture. The thoracic vertebral bodies have normal height and alignment. There is multilevel spondylosis. The sternum is within normal limits in appearance. Normal visualized upper abdomen. CT/CTA Chest W/WO Contrast IMPRESSION: 1. No CTA demonstrated pulmonary embolism or arterial dissection. 2. Bilateral basilar dependent atelectasis. 3. Mild pulmonary vascular congestion. Electronically Signed: Vianca Kaur MD at 8:27 EST ,
--- NOTE | 2024-03-09 05:49 | EKG12_ITS ---
Test Reason : DYSRHYTHMIA Blood Pressure : */* mmHG Vent. Rate : 102 BPM Atrial Rate : 102 BPM P-R Int : 150 ms QRS Dur : 70 ms QT Int : 338 ms P-R-T Axes : 42 41 11 degrees QTcB Int : 440 ms Sinus tachycardia Otherwise normal ECG Confirmed by DULCE AGRUETA, RUTH ([id number]), newspaper managing editor RAFAELA BUSTAMANTE ([id number]) on 03/11/2024 10:38:05 AM Referred By: Confirmed By: RUTH CARDONA MD
[2024-03-09 06:29] LABS: Troponin-I HS < 3 pg/mL (3.0-54.0)
[2024-03-09 08:00] LABS: BNP,B-Type NATRIURETIC PEPTIDE 39.2 pg/mL (0-100)
--- NOTE | 2024-03-09 09:18 | HP.PCM_ITS ---
HPI - General General Date of Admission: 03/09/24 Date of Service: 03/09/24 HPI Narrative LESLIE AGUIRRE, is a 68 F with a PMH as outlined who presents via the ED on 03/09/2024 with a complaint of lower extremity pain which was thought to be due to sciatica. However when she came in she was only having lower extremity pain but was found to be hypoxic. Patient admitted to several episodes of vomiting prior to coming in. She had a stent nausea. She subsequently was noted to be hypoxic. She denied any cough, chest pain, palpitations, dizziness, nausea, vomiting or any other symptoms. Vitals in the ED were BP of 141/86, NJ of 104, RR of 22 nad temp of 98.6F. HE was saturating at 95% on 2L of oxygen. CBC showed hb of 13.3, wbc of 13.4 and platelets of 315. Chemistry showed sodium of 141, potassium of 4.5 and Cr of 0.95. BNp was only 39.2 and initial troponin was <3. CXR showed borderline cardiomegaly and mild pulmonary congestion. CTA chest showed no evidence of PE or arterial dissection and showed bilateral basilar dependent atelectasis and mild pulmonary vascular congestion. She is being admitted to be managed for hypoxia due to possible aspiration with concerns for possible fluid overload. [facility] Medical History Anxiety and depression THIAGO (obstructive sleep apnea) Hypertension Asthma Mild pulmonary arterial systolic hypertension Varicose vein of leg Wears glasses Arthritis History of diverticulitis COPD (chronic obstructive pulmonary disease) Obesity Hx of cardiac arrest (01/2018) GERD (gastroesophageal reflux disease) Left rotator cuff tear Kidney stone Anaphylactic reaction Osteoarthritis Home Medications ?Medication ?Instructions ?Recorded ?Last Taken ?Type loratadine 10 mg capsule 10 mg PO DAILY PRN Allergies 05/14/17 Unknown History meloxicam 15 mg tablet 7.5 mg PO BID bone health 02/10/18 11/25/19 History multivitamin (Multiple Vitamins 1 tab PO DAILY supplement 02/10/18 11/25/19 History tablet) escitalopram oxalate 5 mg tablet 5 mg PO DAILY mental health 11/26/19 11/25/19 History albuterol sulfate 90 mcg/actuation 2 puff inhalation Q6H PRN SOB 04/27/21 08/30/21 History aerosol inhaler (ProAir HFA) fluticasone furoate 100 1 inh inhalation DAILY #60 ea 03/26/23 Unknown Rx mcg-vilanterol 25 mcg/dose inhalation powder (Breo Ellipta) losartan 100 mg tablet 100 mg PO DAILY #90 tabs 04/10/23 Unknown Rx hydrocodone-acetaminophen 5-325mg 1 tab PO Q4H PRN PRN Pain 3 days 07/28/23 Unknown Rx 5mg-325mg #10 TABLETS Allergy/AdvReac Type Severity Reaction Status Date / Time Dmtkuby-Apw-Yqy Reductase Allergy Severe Anaphylaxis Verified 03/09/24 00:21 Inhibitor Family History Father Stomach cancer Heart problem Mother Diabetes Brother Diabetes Sister Breast cancer Surgical History History of colonoscopy History of total right hip replacement H/O: hysterectomy Hx of cholecystectomy History of hip replacement Social History housing: apartment current occupational status: employed pets and animals: No Smoking Status: Never smoker second hand exposure: No alcohol intake: never substance use type: does not use ROS Review of Systems ROS Unobtainable: Denies due to encephalopathy Constitutional Constitutional: Reports fatigue, malaise and weakness; Denies anorexia, chills or fever(s) Eyes Eyes: Denies change in vision ENT HEENT: Denies dysphagia Cardiovascular Cardiovascular: Denies chest pain, edema, orthopnea, palpitations, paroxysmal nocturnal dyspnea or syncope Respiratory/Chest Respiratory/Chest: Reports cough, shortness of breath at rest and shortness of breath with exertion; Denies wheezing Gastrointestinal Gastrointestinal: Reports nausea and vomiting; Denies abdominal pain or constipation Genitourinary Genitourinary: Denies dysuria Musculoskeletal Musculoskeletal: Denies back pain Neurologic Neurologic: Denies confusion, dizziness, focal weakness, headache(s), lack of coordination or weakness Psychiatric Psychiatric: Denies anxiety Vital Signs Vital Signs Vital Signs: 03/09/24 00:21 03/09/24 00:26 03/09/24 00:46 Temperature 98.2 F 98.2 F Temperature Source Axillary Axillary Pulse Rate 98 87 Respiratory Rate 18 18 Blood Pressure 193/111 H 193/111 H 146/80 H Blood Pressure Mean 138 138 102 Pulse Ox 93 96 Oxygen Delivery Method Room Air Room Air Oxygen Flow Rate (L/min) 03/09/24 01:25 03/09/24 01:36 03/09/24 01:36 Temperature 98.2 F Temperature Source Axillary Pulse Rate 120 H Respiratory Rate 18 Blood Pressure 139/77 H Blood Pressure Mean 97 Pulse Ox 92 85 91 Oxygen Delivery Method Room Air Room Air Nasal Cannula Oxygen Flow Rate (L/min) 2 03/09/24 02:00 03/09/24 03:00 03/09/24 04:00 Temperature 99.0 F 99.0 F 99.0 F Temperature Source Oral Oral Oral Pulse Rate 98 99 102 H Respiratory Rate 18 18 18 Blood Pressure 120/85 H 155/58 H 130/86 H Blood Pressure Mean 96 90 100 Pulse Ox 96 92 97 Oxygen Delivery Method Nasal Cannula Nasal Cannula Nasal Cannula Oxygen Flow Rate (L/min) 2 2 2 03/09/24 05:00 03/09/24 06:20 03/09/24 06:39 Temperature 99.0 F Temperature Source Oral Pulse Rate 102 H 102 H Respiratory Rate 18 16 Blood Pressure 131/75 H 140/62 H Blood Pressure Mean 93 88 Pulse Ox 96 97 81 Oxygen Delivery Method Nasal Cannula Room Air Room Air Oxygen Flow Rate (L/min) 2 03/09/24 06:39 03/09/24 08:00 Temperature 98.6 F Temperature Source Oral Pulse Rate 104 H Respiratory Rate 22 H Blood Pressure 141/86 H Blood Pressure Mean 104 Pulse Ox 95 95 Oxygen Delivery Method Nasal Cannula Nasal Cannula Oxygen Flow Rate (L/min) 2 2 Weight Weight: 231 lb 7.766 oz Body Mass Index (BMI) 42.3 Physical Exam Const alert, oriented x3 and no apparent distress Constitutional Narrative: looks weak General Appearance: cooperative HEENT normocephalic and head/scalp atraumatic Eyes PERRL and EOMs intact bilaterally Neck no lymphadenopathy and supple Lymph Lymphatic: no lymphadenopathy noted and no lymphedema noted Resp Resp Narrative: mildly diminished breath sounds bibasally, no wheezes or crackles. On room air. Cardio regular rate, regular rhythm, S1 normal heart sound, S2 normal heart sound and no murmurs GI normal to inspection, nondistended, normoactive bowel sounds, soft to palpation, non-tender and non-distended Extremity normal capillary refill, no clubbing, cyanosis or edema and no calf tenderness General Extremity: no tenderness to palpation of joints or extremities Skin General Skin Exam: no breakdown Neuro CN's II-XII intact bilaterally, no focal motor deficits and no sensory deficits noted Motor Exam: strength 5/5 throughout and general weakness Psych thought process normal and cooperative Appearance: appropriate Results Lab / Micro Data 03/09/24 01:14 03/09/24 01:14 Labs: Laboratory Results - last 24 hr 03/09/24 01:14: WBC 13.4 H, RBC 4.07 L, Hgb 13.3, Hct 39.9, MCV 98.0, MCH 32.7 H , MCHC 33.3, RDW Std Deviation 44.9 H, RDW Coeff of Juan Alberto 12.5, Plt Count 315, MPV 9.8, Immature Gran % (Auto) 0.300, Neut % (Auto) 89.9 H, Lymph % (Auto) 3.8 L, Kleberg % (Auto) 5.0, Eos % (Auto) 0.8, Baso % (Auto) 0.2, Absolute Neuts (auto) 12.1 H, Absolute Lymphs (auto) 0.51 L, Nucleated RBC % 0, Sodium 141, Potassium 4.5, Chloride 109 H, Carbon Dioxide 28.0, Anion Gap 4 L, BUN 29 H, Creatinine 0.95, Estim Creat Clear Calc 63.58, Est GFR (MDRD) Af Amer 75, Est GFR (MDRD) Non-Af 62, BUN/Creatinine Ratio 30.4 H, Glucose 128 H, Calcium 9.0, Troponin I High Sens < 3 L, B-Natriuretic Peptide 39.2 Micro: Microbiology 03/09/24 05:58 Mucosa - Nose SARS-CoV-2, Influenza & RSV (PCR) - Final Imaging Radiology Impression Lumbar Spine X-Ray 03/09/24 00:58 IMPRESSION: 1. Multilevel degenerative changes of the lumbar spine. 2. No obvious acute compression or displaced fracture. Electronically Signed: Vianca Kaur MD at 4:13 EST Reading Location ID and State: [address] [place] [address] , Service support , Chest X-Ray 03/09/24 04:10 IMPRESSION: Borderline cardiomegaly and mild pulmonary congestion. Electronically Signed: Vianca Kaur MD at 5:30 EST Reading Location ID and State: [address] [place] [address] , Service support , Chest CTA 03/09/24 05:48 IMPRESSION: 1. No CTA demonstrated pulmonary embolism or arterial dissection. 2. Bilateral basilar dependent atelectasis. 3. Mild pulmonary vascular congestion. Electronically Signed: Vianca Kaur MD at 8:27 EST Reading Location ID and State: [facility] / [place] , Service support , Assessment & Plan Assessment/Plan (1) Hypoxia: (2) Left sided sciatica: PLAN: Plan #Hypoxia probably due to aspiration pneumonitis * admitted with a complaint of shortness of breath. Now on 2L of oxygen * was vomiting profusely at home, so I suspect she may have aspirated * wbc is also slightly elevated at 13.4. * CTA chest showed no evidence of PE arterial dissection and showed bilateral basilar dependent atelectasis and mild pulmonary vascular congestion * Breathing treatments bronchodilators. Started on IV Zosyn empirically. * Titrate oxygen 20 and saturation above 90%. * 2D echo ordered * Troponins x 3 were negative. * #Mechanical fall * Patient admitted with a complaint of mechanical fall also. Denies any loss of consciousness. Chest CT did not show any evidence of PE but did show possible right clavicle fracture * PT OT on board. Fall precautions. P.o. Tylenol, p.o. oxycodone and IV morphine as needed * #Depression: On escitalopram #Hypertension: On losartan. IV hydralazine as needed DVT prophylaxis: Lovenox CODE STATUS: DNR CCA no intubation * Patient counseled extensively about different types of CODE STATUS including full code, DNR CCA and DNR CCA. Patient elects to be DNRCCA no intubation and clarified that she did not want CPR or intubation. * Total ipbs-rd-fqge time 16 minutes. Charges/Coding Visit Charges Inpatient E&M: 63465 Init Hosp L3 Procedures Hospitalists Procedures: 88488 Advncd Care Plan 30 Min
[2024-03-09] MEDS: 0.9% Saline Lock 10 ML Syringe IV (11:14)
[2024-03-09] MEDS: Furosemide 40 MG/4 ML Vial IV (11:14)
[2024-03-09] MEDS: 0.9% Normal Saline (1000mL) 1,000 ML 125 ML IV (11:17)
[2024-03-09] MEDS: Escitalopram Oxalate 10 MG Tablet 5 MG PO (11:33)
[2024-03-09] MEDS: Losartan Potassium 100 MG Tablet PO (11:33)
[2024-03-09] MEDS: Meloxicam 7.5 MG Tablet PO ×2 (11:33→17:17)
[2024-03-09] MEDS: Multivitamins,Therapeutic Tablet 1 TABLET PO (11:33)
[2024-03-09 11:34] LABS: Troponin-I HS < 3 pg/mL (3.0-54.0)
--- NOTE | 2024-03-09 12:14 | ECHOCS_ITS ---
Reason For Study: Dyspnea/SOB Procedure This was a 2D Doppler, Color Flow transthoracic echocardiogram. The study was technically difficult. Contrast injection was performed. Exam performed portable in patient room. Left Ventricle Normal LV size. Left ventricular systolic function is hyperdynamic. The left ventricular ejection fraction is 70 %. No regional wall motion abnormalities noted. Right Ventricle Normal RV size. Normal systolic function. Mitral Valve There is mild to moderate mitral annular calcification. Tricuspid Valve Normal tricuspid valve. Mild (1+) tricuspid valve insufficiency. Pulmonary artery systolic pressure is 34 mmHg. Aortic Valve Trisinus/trileaflet aortic valve. Pulmonic Valve The pulmonic valve is not well visualized. Great Vessels Normal aortic root. The pulmonary artery is normal size. Inferior vena cava collapse with respiration. Pericardium/Pleural No pericardial effusion. Medication Diluted definity 2.5ml given slow IV push to enhance endocardial definition. MMode/2D Measurements & Calculations LVIDd: 4.0 cm IVSd: 1.1 cm Ao root diam: 3.3 cm LVIDs: 2.6 cm LVPWd: 0.82 cm RVDd: 3.7 cm FS: 35.6 % LAV(MOD-bp): 46.1 ml LA A4 area: 17.4 cm2 LA dimension(2D): 4.0 cm LAV(MOD-bp) Indexed: 23.3 ml/m2 LAV(MOD-sp2): 44.2 ml LAV(MOD-sp4): 44.7 ml TAPSE: 2.1 cm RA A4 area: 14.6 cm2 Time Measurements MV dec time: 0.16 sec Doppler Measurements & Calculations MV E max gregg: 84.8 cm/sec Lat Peak E' Gregg: 14.8 cm/sec MV V2 max: 132.0 cm/sec MV A max gregg: 119.4 cm/sec E/E' lat: 5.7 MV max P.0 mmHg MV E/A: 0.71 MV V2 mean: 72.4 cm/sec MV mean P.5 mmHg MV V2 VTI: 20.6 cm MV P1/2t max gregg: 97.2 cm/sec Ao V2 max: 172.3 cm/sec LV V1 max: 164.1 cm/sec MV P1/2t: 58.4 msec Ao max P.9 mmHg LV V1 max P.8 mmHg MV dec slope: 487.6 cm/sec2 MVA(P1/2t): 3.8 cm2 PA V2 max: 103.3 cm/sec TR max gregg: 269.8 cm/sec TR max P.1 mmHg ECHO/Echo Complete W/ Contrast Interpretation Summary Normal LV size. Left ventricular systolic function is hyperdynamic. The left ventricular ejection fraction is 70 %. Pulmonary artery systolic pressure is 34 mmHg. Contrast injection was performed. Ordering Physician: Diamond Phillips Performed By: De Green RCS
[2024-03-09 13:23] LABS: Troponin-I HS < 3 pg/mL (3.0-54.0)
[2024-03-09] MEDS: Ipratropium/Albuterol Sulfate 3 ML AMPUL.NEB INHALATION ×2 (13:59→18:57)
[2024-03-09] MEDS: Piperacil/Tazobactam 3.375 GM in 0.9% Normal Saline (50mL MB+) 50 ML IV ×2 (14:52→21:06)
[2024-03-09 18:27] LABS: Troponin-I HS 4 pg/mL (3.0-54.0)
[2024-03-09] MEDS: Budesonide Respules 0.5 MG/2 ML AMPUL.NEB. INHALATION (18:57)
[2024-03-10] VITALS (13 sets, daily range): BP systolic 100–133; BP diastolic 52–71; PULSE 80–96; RESP 14–20; TEMP 36.5–36.8; O2SAT 86–99
[2024-03-10] MEDS: Ipratropium/Albuterol Sulfate 3 ML AMPUL.NEB INHALATION ×4 (00:46→20:01)
[2024-03-10] MEDS: Piperacil/Tazobactam 3.375 GM in 0.9% Normal Saline (50mL MB+) 50 ML IV ×3 (05:58→21:33)
[2024-03-10 06:19] LABS: Absolute Lymphocyte Count 0.81 X10^3/uL (0.83-4.51); Absolute Neutrophil Count 7.1 X10^3/uL (2.0-7.7); Basophil# 0.02 X10^3/uL; Basophil% 0.2 % (0-1); Hematocrit 35.7 % (37-47); Hemoglobin 11.4 g/dL (12.0-15.0); Lymphocyte # 0.81 X10^3/ul (0.83-4.51); Lymphocyte % 9.1 % (19-41); Mean Corp Hgb Conc 31.9 g/dL (32-36); Mean Corpuscular Hgb 31.8 pg (27.0-32.0); Mean Corpuscular Volume 99.4 fL (81-99); Monocyte% 10.1 % (0-10); NRBC Flagged by Analyzer 0 % (0-5); Neutrophil # 7.12 X10^3/uL (2.7-7.7); Neutrophil % 80.3 % (47-70); Platelet Count 293 K/mm3 (150-450); RBC Distribution Width CV 12.9 % (11.6-14.6); RBC Distribution Width SD 47.1 fl (35.1-43.9); Red Blood Count 3.59 M/mm3 (4.2-5.4); White Blood Count 8.9 K/mm3 (4.4-11.0)
[2024-03-10] MEDS: Budesonide Respules 0.5 MG/2 ML AMPUL.NEB. INHALATION ×2 (06:36→20:01)
[2024-03-10 06:51] LABS: Anion Gap 5 (5-15); BUN 38 mg/dL (7-18); BUN/Creat Ratio 36.2 RATIO (10-20); Calcium,Total 8.1 mg/dL (8.5-10.1); Chloride 109 mmol/L (98-107); Creatinine, Serum 1.05 mg/dL (0.55-1.02); EST Glomerular Filtration Rate 55 mL/min (>60); Est Glom Filt Rate - Afr Amer 67 mL/min (>60); Estimated Creatinine Clearance 55.48 ml/min; Glucose 111 mg/dL (74-106); Potassium 3.5 mmol/L (3.5-5.1); Sodium Level 140 mmol/L (136-145)
[2024-03-10] MEDS: Losartan Potassium 100 MG Tablet PO (08:53)
[2024-03-10] MEDS: 0.9% Saline Lock 10 ML Syringe IV (08:53)
[2024-03-10] MEDS: Furosemide 40 MG/4 ML Vial IV (08:53)
[2024-03-10] MEDS: Multivitamins,Therapeutic Tablet 1 TABLET PO (08:53)
[2024-03-10] MEDS: Meloxicam 7.5 MG Tablet PO ×2 (08:53→16:33)
[2024-03-10] MEDS: Enoxaparin 40 MG/0.4 ML Syringe SC (08:54)
[2024-03-10] MEDS: Escitalopram Oxalate 10 MG Tablet 5 MG PO (08:54)
--- NOTE | 2024-03-10 12:10 | PN_ITS ---
Subjective Subjective Patient seen and examined. She says she feels much better today. She remains on 2L of oxygen. She says she is coughing but unable to expectorate. Review of systems is otherwise negative. Objective Data Objective Data Vital Signs: Vital Signs Temp Pulse Resp BP Pulse Ox O2 Del Method O2 Flow Rate 97.8 F 82 18 108/58 L 93 Nasal Cannula 2 03/10/24 11:26 03/10/24 12:05 03/10/24 12:05 03/10/24 11:26 03/10/24 11:26 03/10/24 11:26 03/10/24 11:26 FiO2 92 03/10/24 09:12 Oxygen Flow Rate (L/min) 2 Oxygen Delivery Method Nasal Cannula Weight: 217 lb 6.012 oz Body Mass Index (BMI) 39.7 Intake & Output: Intake and Output for Last 24 Hours 03/08/24 03/09/24 03/10/24 23:59 23:59 23:59 Intake Total 1050 / 1290 700 / 700 Balance 1050 / 1290 700 / 700 Lab / Micro Data 03/10/24 05:12 03/10/24 05:12 Labs: Laboratory Results - last 24 hr 03/09/24 12:52: Troponin I High Sens < 3 L 03/09/24 17:35: Troponin I High Sens 4 03/10/24 05:12: WBC 8.9, RBC 3.59 L, Hgb 11.4 L, Hct 35.7 L, MCV 99.4 H, MCH 31.8, MCHC 31.9 L, RDW Std Deviation 47.1 H, RDW Coeff of Juan Alberto 12.9, Plt Count 293, MPV 10.0, Immature Gran % (Auto) 0.300, Neut % (Auto) 80.3 H, Lymph % (Auto) 9.1 L, Alexander % (Auto) 10.1 H, Eos % (Auto) 0.0, Baso % (Auto) 0.2, Absolute Neuts (auto) 7.1, Absolute Lymphs (auto) 0.81 L, Nucleated RBC % 0, Sodium 140, Potassium 3.5, Chloride 109 H, Carbon Dioxide 26.0, Anion Gap 5, BUN 38 H, Creatinine 1.05 H, Estim Creat Clear Calc 55.48, Est GFR (MDRD) Af Amer 67, Est GFR (MDRD) Non-Af 55 L, BUN/Creatinine Ratio 36.2 H, Glucose 111 H, C alcium 8.1 L Micro: Microbiology 03/09/24 05:58 Mucosa - Nose SARS-CoV-2, Influenza & RSV (PCR) - Final Radiography Diagnostic Testing: Radiology Impression Echocardiogram 03/09/24 12:14 Interpretation Summary Normal LV size. Left ventricular systolic function is hyperdynamic. The left ventricular ejection fraction is 70 %. Pulmonary artery systolic pressure is 34 mmHg. Contrast injection was performed. Ordering Physician: Diamond Phillips Performed By: De Green RCS Physical Exam Const alert, oriented x3 and no apparent distress Constitutional Narrative: looks much better today. General Appearance: cooperative HEENT normocephalic and head/scalp atraumatic Eyes PERRL and EOMs intact bilaterally Neck no lymphadenopathy and supple Lymph Lymphatic: no lymphadenopathy noted and no lymphedema noted Resp Resp Narrative: mildly diminished breath sounds bibasally, no wheezes or crackles. On room air. Cardio regular rate, regular rhythm, S1 normal heart sound, S2 normal heart sound and no murmurs GI normal to inspection, nondistended, normoactive bowel sounds, soft to palpation, non-tender and non-distended Extremity normal capillary refill, no clubbing, cyanosis or edema and no calf tenderness General Extremity: no tenderness to palpation of joints or extremities Skin General Skin Exam: no breakdown Neuro CN's II-XII intact bilaterally, no focal motor deficits and no sensory deficits noted Motor Exam: strength 5/5 throughout and general weakness Psych thought process normal and cooperative Appearance: appropriate Assessment & Plan Assessment/Plan (1) Hypoxia: (2) Left sided sciatica: PLAN: Plan #Hypoxia probably due to aspiration pneumonitis * admitted with a complaint of shortness of breath. Still on 2L of oxygen * was vomiting profusely at home, so I suspect she may have aspirated * wbc is also slightly elevated at 13.4. * CTA chest showed no evidence of PE arterial dissection and showed bilateral basilar dependent atelectasis and mild pulmonary vascular congestion * Breathing treatments bronchodilators. Started on IV Zosyn empirically. * Titrate oxygen 20 and saturation above 90%. * 2D echo showed Ef of 70% with hyperdynamic LV systolic function and on regional wall motion abnormalities. RVSp is 34mmHg. * Troponins x 3 were negative. * #Mechanical fall * Patient admitted with a complaint of mechanical fall also. Denies any loss of consciousness. Chest CT did not show any evidence of PE but did show possible right clavicle fracture * PT OT on board. Fall precautions. P.o. Tylenol, p.o. oxycodone and IV morphine as needed * #Depression: On escitalopram #Hypertension: On losartan. IV hydralazine as needed DVT prophylaxis: Lovenox CODE STATUS: DNR CCA no intubation * Charges/Coding Visit Charges Inpatient E&M: 29388 Subs Hosp L2
--- NOTE | 2024-03-10 15:29 | CASEMGMT ---
Met with patient to complete MONTANO form. MONTANO form explained to patient who voiced understanding and signed form. Original form placed in pt?s chart and copy provided to patient. Becky Kurtz, Discharge Planning Asst
[2024-03-11] VITALS (10 sets, daily range): BP systolic 116–128; BP diastolic 61–70; PULSE 69–84; RESP 16–20; TEMP 36.4–37.2; O2SAT 89–96
[2024-03-11] MEDS: Ipratropium/Albuterol Sulfate 3 ML AMPUL.NEB INHALATION ×3 (01:23→13:18)
[2024-03-11] MEDS: Loratadine 10 MG Tablet PO (05:16)
[2024-03-11] MEDS: 0.9% Saline Lock 10 ML Syringe IV (05:17)
[2024-03-11] MEDS: Piperacil/Tazobactam 3.375 GM in 0.9% Normal Saline (50mL MB+) 50 ML IV (05:20)
[2024-03-11 06:03] LABS: Absolute Lymphocyte Count 1.62 X10^3/uL (0.83-4.51); Absolute Neutrophil Count 4.8 X10^3/uL (2.0-7.7); Basophil# 0.02 X10^3/uL; Basophil% 0.3 % (0-1); Eosinophil# 0.04 X10^3/uL; Eosinophils% 0.5 % (0-5); Hematocrit 36.9 % (37-47); Hemoglobin 11.7 g/dL (12.0-15.0); Lymphocyte # 1.62 X10^3/ul (0.83-4.51); Lymphocyte % 21.9 % (19-41); Mean Corp Hgb Conc 31.7 g/dL (32-36); Mean Corpuscular Hgb 31.9 pg (27.0-32.0); Mean Corpuscular Volume 100.5 fL (81-99); Mean Platelet Vol. 9.8 fl (6.2-12.0); Monocyte# 0.91 X10^3/uL; Monocyte% 12.3 % (0-10); NRBC Flagged by Analyzer 0 % (0-5); Neutrophil # 4.79 X10^3/uL (2.7-7.7); Neutrophil % 64.7 % (47-70); Platelet Count 271 K/mm3 (150-450); RBC Distribution Width CV 12.7 % (11.6-14.6); RBC Distribution Width SD 47.7 fl (35.1-43.9); Red Blood Count 3.67 M/mm3 (4.2-5.4); White Blood Count 7.4 K/mm3 (4.4-11.0)
[2024-03-11] MEDS: Budesonide Respules 0.5 MG/2 ML AMPUL.NEB. INHALATION (06:41)
[2024-03-11 06:46] LABS: Anion Gap 4 (5-15); BUN 33 mg/dL (7-18); BUN/Creat Ratio 36.4 RATIO (10-20); Calcium,Total 8.2 mg/dL (8.5-10.1); Chloride 112 mmol/L (98-107); Creatinine, Serum 0.91 mg/dL (0.55-1.02); EST Glomerular Filtration Rate 65 mL/min (>60); Est Glom Filt Rate - Afr Amer 79 mL/min (>60); Estimated Creatinine Clearance 64.02 ml/min; Glucose 104 mg/dL (74-106); Potassium 3.2 mmol/L (3.5-5.1); Sodium Level 141 mmol/L (136-145)
[2024-03-11] MEDS: Multivitamins,Therapeutic Tablet 1 TABLET PO (07:57)
[2024-03-11] MEDS: Meloxicam 7.5 MG Tablet PO (07:57)
[2024-03-11] MEDS: Potassium Chloride Oral Tablet 20 MEQ 40 MEQ PO (09:14)
[2024-03-11] MEDS: Losartan Potassium 100 MG Tablet PO (09:14)
[2024-03-11] MEDS: Escitalopram Oxalate 10 MG Tablet 5 MG PO (09:14)
[2024-03-11] MEDS: Enoxaparin 40 MG/0.4 ML Syringe SC (09:15)
--- NOTE | 2024-03-11 12:20 | CASEMGMT ---
RN CM Face to Face with patient for initial transition planning/care coordination assessment. RN CM introduced self and role at [facility]. Patient lying in bed, alert and oriented. Patient willing to participate in assessment and is able to answer all questions appropriately. Care providers, pharmacy, and demographics verified. Strata: 2 PCP: Marta Specialists: Kyra, electric lineman; Preferred Pharmacy: [facility] Insurance: [facility] Dual Prescription Benefit: yes Living Will/HPOA: none LNOK: friend Living Arrangements: Patient lives alone in a first floor apartment with no steps to enter. Patient stats she is independent at home. Transportation: self, friend DME/HHC: Patient has cane grab bars, cpap, pulse ox. No previous SNF. Patient has had HHC in the past but could not recall agency. Patient wishes to discharge home, denies need for home health at this time. Patient states she has no further needs or concerns at this time. CM to follow for discharge planning needs that may arise. Disposition Plan: Patient to discharge home with family support and follow-up plans in place. Emely DONAHUE, RN, CM
--- NOTE | 2024-03-11 14:16 | DCINST_ITS ---
Discharge Instructions Diet Discharge Diet: Low fat / Low cholesterol DC O2, CPAP, BIPAP needs RN Home O2 Qualification: Home O2 Qualification: Is the patient on home oxygen No 03/11/24 09:32 Home O2 Qualification: AT REST 1- Pulse Ox at rest 91 03/11/24 09:32 Home O2 Qualification: WITH AMBULATION 1- Pulse Ox with ambulation 89 03/11/24 09:32 1- Oxygen Flow Rate with 0 03/11/24 09:32 ambulation PSN CPAP & BiPAP: BiPAP & CPAP Settings per PSN Fraction of Inspired Oxygen ( 95 03/11/24 07:55 FIO2) Home O2 Discharge instructions: No Dressing / Incision Discharge Activity: Return to Normal Activity Dressing / Incision Call your doctor if you observe: Fever of 101 or Higher, Shortness of breath, Dizziness, Swelling in the ankles and Chest pain Follow Up Care Test Results: Test results from this visit will be discussed in further detail at your follow- up appointment, if applicable. Discharge Plan Admission Admit Date/Time: 03/10/24 16:05 Primary Reason for Your Visit: aspiration pneumonitis Attending Provider: Diamond Phillips Primary Care Provider: Isidro Lozano Instructions Patient Instructions: Dysphagia Aspiration Discharge Orders/Prescriptions Prescriptions: New amoxicillin-pot clavulanate 875-125 mg tablet 1 tab PO BID Qty: 10 0RF Continued multivitamin [Multiple Vitamins] tablet 1 tab PO DAILY albuterol sulfate [ProAir HFA] 90 mcg/actuation HFA aerosol inhaler 2 puff inhalation Q6H PRN (Reason: SOB) Breo Ellipta 100-25 mcg/dose blister with device 1 inh inhalation DAILY Qty: 60 11RF loratadine 10 MG capsule 10 mg PO DAILY PRN (Reason: Allergies) meloxicam 15 mg tablet 7.5 mg PO BID Patient Comments: Take 1 tablet by mouth once daily. escitalopram oxalate 5 MG tablet 5 mg PO DAILY hydrocodone-acetaminophen 5-325 mg tablet 1 tab PO Q4H PRN PRN (Reason: Pain) 3 Days Qty: 10 0RF losartan 100 mg tablet 100 mg PO DAILY Qty: 90 3RF Referrals / Follow Up: Isidro Lozano MD [Primary Care Provider] - Within 1 Week Disposition Disposition (needs filled in before D/C Order can be placed): Home, Self Care
--- NOTE | 2024-03-11 14:19 | DS.PCM_ITS ---
Providers Date of Admission: 03/10/24 Date of Discharge: 03/11/24 Primary Care Physician: Dr. Isidro Lozano MD Reason For Visit: HYPOXIA Diagnosis Discharge Diagnosis (1) Hypoxia: Status: Acute Code(s): R09.02 - Hypoxemia (2) Left sided sciatica: Status: Acute Code(s): M54.32 - Sciatica, left side Plan #Hypoxia probably due to aspiration pneumonitis * admitted with a complaint of shortness of breath. Still on 2L of oxygen * was vomiting profusely at home, so I suspect she may have aspirated * wbc is also slightly elevated at 13.4. * CTA chest showed no evidence of PE arterial dissection and showed bilateral basilar dependent atelectasis and mild pulmonary vascular congestion * Breathing treatments bronchodilators. Started on IV Zosyn empirically. * Titrate oxygen 20 and saturation above 90%. * 2D echo showed Ef of 70% with hyperdynamic LV systolic function and on regional wall motion abnormalities. RVSp is 34mmHg. * Troponins x 3 were negative. * #Mechanical fall * Patient admitted with a complaint of mechanical fall also. Denies any loss of consciousness. Chest CT did not show any evidence of PE but did show possible right clavicle fracture * PT OT on board. Fall precautions. P.o. Tylenol, p.o. oxycodone and IV morphine as needed * #Depression: On escitalopram #Hypertension: On losartan. IV hydralazine as needed DVT prophylaxis: Lovenox CODE STATUS: DNR CCA no intubation * Medications at Discharge Home Medications loratadine 10 mg capsule 10 mg PO DAILY PRN Allergies 05/14/17 meloxicam 15 mg tablet 7.5 mg PO BID bone health 02/10/18 multivitamin (Multiple Vitamins tablet) 1 tab PO DAILY supplement 02/10/18 escitalopram oxalate 5 mg tablet 5 mg PO DAILY mental health 11/26/19 albuterol sulfate 90 mcg/actuation aerosol inhaler (ProAir HFA) 2 puff inhalation Q6H PRN SOB 07/18/20 fluticasone furoate 100 mcg-vilanterol 25 mcg/dose inhalation powder (Breo Ellipta) 1 inh inhalation DAILY #60 ea 03/26/23 losartan 100 mg tablet 100 mg PO DAILY #90 tabs 04/10/23 hydrocodone-acetaminophen 5-325mg 5mg-325mg 1 tab PO Q4H PRN PRN Pain 3 days #10 TABLETS 07/28/23 amoxicillin 875 mg-potassium clavulanate 125 mg tablet 1 tab PO BID #10 tabs 03/11/24 Hospital Course Operations None Procedures 2-D Echocardiogram Summary of Care Provided Minutes Spent on Discharge: 48 Hospital Course: LESLIE AGUIRRE, is a 68 F with a PMH as outlined who presents via the ED on 03/09/2024 with a complaint of lower extremity pain which was thought to be due to sciatica. However when she came in she was only having lower extremity pain but was found to be hypoxic. Patient admitted to several episodes of vomiting prior to coming in. She had a stent nausea. She subsequently was noted to be hypoxic. She denied any cough, chest pain, palpitations, dizziness, nausea, vomiting or any other symptoms. Vitals in the ED were BP of 141/86, NV of 104, RR of 22 nad temp of 98.6F. HE was saturating at 95% on 2L of oxygen. CBC showed hb of 13.3, wbc of 13.4 and platelets of 315. Chemistry showed sodium of 141, potassium of 4.5 and Cr of 0.95. BNp was only 39.2 and initial troponin was <3. CXR showed borderline cardiomegaly and mild pulmonary congestion. CTA chest showed no evidence of PE or arterial dissection and showed bilateral basilar dependent atelectasis and mild pulmonary vascular congestion. She was admitted to be managed for hypoxia due to possible aspiration with concerns for possible fluid overload. She was started on IV Unasyn and diuresed with IV Lasix. Her shortness of breath did improve when she was weaned off of oxygen. She had 2D echo which showed EF of 70% with no regional wall motion abnormality seen and left ventricular systolic function found to be hyperdynamic. Pulmonary artery systolic pressure was 34 mmHg. She was weaned off of oxygen and felt much better. Sputum culture was positive for gram-negative rods with lactose fiction and nonfiction author speciation which was pending at time of discharge. She was discharged him on p.o. amoxicillin clavulanic acid for 5-day course. She is follow-up with her primary care doctor within 1 to 2 weeks. Patient seen and examined prior to discharge. She felt much better and had no complaints. Review of systems otherwise negative. Labs and vitals reviewed. Home Medication reviewed and reconciled. Physical Exam Const alert, oriented x3 and no apparent distress General Appearance: cooperative and comfortable Orientation / Consciousness: awake HEENT normocephalic, head/scalp atraumatic, hearing grossly normal bilaterally and moist oral mucous membranes Mouth: oral and palatal mucosa normal Eyes PERRL, EOMs intact bilaterally and conjunctivae normal Neck no lymphadenopathy and supple Lymph Lymphatic: no lymphadenopathy noted and no lymphedema noted Resp normal respiratory effort, no use of accessory muscles and clear to auscultation bilaterally Cardio regular rate, regular rhythm, S1 normal heart sound, S2 normal heart sound and no murmurs GI normal to inspection, nondistended, normoactive bowel sounds, soft to palpation, non-tender and non-distended Extremity normal to inspection, full ROM, normal capillary refill, no clubbing, cyanosis or edema and no calf tenderness General Extremity: no tenderness to palpation of joints or extremities Skin no rashes or lesions noted General Skin Exam: no breakdown Neuro oriented x3, CN's II-XII intact bilaterally, moves all extremities, no focal motor deficits and no sensory deficits noted Sensorium / Orientation: awake and alert Motor Exam: strength 5/5 throughout and general weakness Psych thought process normal, cooperative and affect normal Appearance: appropriate Weight / BMI Weight Weight: 217 lb 6.012 oz Body Mass Index (BMI) 39.7 ABG / Lab / Microbiology Data 03/11/24 05:38 03/11/24 05:38 Laboratory: Laboratory Results - last 24 hr 03/11/24 05:38: WBC 7.4, RBC 3.67 L, Hgb 11.7 L, Hct 36.9 L, MCV 100.5 H, MCH 31.9, MCHC 31.7 L, RDW Std Deviation 47.7 H, RDW Coeff of Juan Alberto 12.7, Plt Count 271, MPV 9.8, Immature Gran % (Auto) 0.300, Neut % (Auto) 64.7, Lymph % (Auto) 21.9, [place] % (Auto) 12.3 H, Eos % (Auto) 0.5, Baso % (Auto) 0.3, Absolute Neuts (auto) 4.8, Absolute Lymphs (auto) 1.62, Nucleated RBC % 0, Sodium 141, P otassium 3.2 L, Chloride 112 H, Carbon Dioxide 25.0, Anion Gap 4 L, BUN 33 H, Creatinine 0.91, Estim Creat Clear Calc 64.02, Est GFR (MDRD) Af Amer 79, Est GFR (MDRD) Non-Af 65, BUN/Creatinine Ratio 36.4 H, Glucose 104, Calcium 8.2 L Microbiology: Microbiology 03/10/24 09:08 Sputum, Expectorated/Coughed Gram Stain - Final 03/10/24 09:08 Sputum, Expectorated/Coughed Respiratory Culture - Preliminary GNR lactose fiction and nonfiction author 03/09/24 05:58 Mucosa - Nose SARS-CoV-2, Influenza & RSV (PCR) - Final D/C Instructions Discharge Diet: Low fat / Low cholesterol Discharge Activity: Return to Normal Activity Weight Bearing Status: Weight bearing as tolerated Call your doctor if you observe: Fever of 101 or Higher, Shortness of breath, Dizziness, Swelling in the ankles and Chest pain DC O2, CPAP, BIPAP Needs RN Home O2 Qualification: Home O2 Qualification: Is the patient on home oxygen No 03/11/24 09:32 Home O2 Qualification: AT REST 1- Pulse Ox at rest 91 03/11/24 09:32 Home O2 Qualification: WITH AMBULATION 1- Pulse Ox with ambulation 89 03/11/24 09:32 1- Oxygen Flow Rate with 0 03/11/24 09:32 ambulation PSN CPAP & BiPAP: BiPAP & CPAP Settings per PSN Fraction of Inspired Oxygen ( 95 03/11/24 07:55 FIO2) Home O2 Discharge instructions: No Meaningful Use Info Meaningful Use Meaningful Use Diagnoses (Choose all that apply): None applicable Ischemic Stroke Statin Dosing Therapy Reference: STATIN DOSE THERAPY REFERENCE: * Patients > 75 years receive moderate or high dose statin therapy. * Patients 75 years or YOUNGER should receive HIGH intensity statin dose unless contraindicated. You will be required to document reason for non-treatment if statin daily dose does not meet guidelines. HIGH DOSE STATIN THERAPY DAILY Atorvastatin > than or = to 40 mg Rosuvastatin > than or = to 20 mg Amlodipine + Atorvastatin > than or = to 2.5/40 mg Ezetimibe + Simvastatin 10/80 mg Simvastatin 80mg Discharge Plan Admission Admit Date/Time: 03/10/24 16:05 Primary Reason for Your Visit: aspiration pneumonitis Attending Provider: Diamond Phillips Primary Care Provider: Isidro Lozano Instructions Patient Instructions: Dysphagia Aspiration Discharge Orders/Prescriptions Prescriptions: New amoxicillin-pot clavulanate 875-125 mg tablet 1 tab PO BID Qty: 10 0RF Continued multivitamin [Multiple Vitamins] tablet 1 tab PO DAILY albuterol sulfate [ProAir HFA] 90 mcg/actuation HFA aerosol inhaler 2 puff inhalation Q6H PRN (Reason: SOB) Breo Ellipta 100-25 mcg/dose blister with device 1 inh inhalation DAILY Qty: 60 11RF loratadine 10 MG capsule 10 mg PO DAILY PRN (Reason: Allergies) meloxicam 15 mg tablet 7.5 mg PO BID Patient Comments: Take 1 tablet by mouth once daily. escitalopram oxalate 5 MG tablet 5 mg PO DAILY hydrocodone-acetaminophen 5-325 mg tablet 1 tab PO Q4H PRN PRN (Reason: Pain) 3 Days Qty: 10 0RF losartan 100 mg tablet 100 mg PO DAILY Qty: 90 3RF Referrals / Follow Up: Isidro Lozano MD [Primary Care Provider] - Within 1 Week Disposition Disposition (needs filled in before D/C Order can be placed): Home, Self Care Charges/Coding Visit Charges Inpatient E&M: 48213 Disch Hosp >30min
== END 2024-03-11 15:22 | disposition home or self-care (01) | DRG 177 ==
LOC: ED 09:08 → PCU 09:35
PROVIDERS: Emergency Medicine; Admitting Provider Student in an Organized Health Care Education/Training Program; Emergency Provider Emergency Medicine; PCP Family Medicine; Visit Provider Student in an Organized Health Care Education/Training Program
DX: J69.0 Pneumonitis due to inhalation of food and vomit (principal); J81.0 Acute pulmonary edema; Z66 Do not resuscitate; J44.9 Chronic obstructive pulmonary disease, unspecified; F32.A Depression, unspecified; I10 Essential (primary) hypertension; S42.001A Fracture of unspecified part of right clavicle, initial encounter for closed fracture; G47.33 Obstructive sleep apnea (adult) (pediatric); M47.816 Spondylosis without myelopathy or radiculopathy, lumbar region; M54.32 Sciatica, left side; W19.XXXA Unspecified fall, initial encounter; Z79.51 Long term (current) use of inhaled steroids; Z79.891 Long term (current) use of opiate analgesic; Z90.710 Acquired absence of both cervix and uterus; Z96.643 Presence of artificial hip joint, bilateral
CPT/HCPCS: 36415; 71046; 71275; 72100; 80048; 83880; 84484; 85025; 87070; 87077; 87186; 87205; 87631; 93005; 93306; 94640; 97116; 97162; 99285; Q9957; Q9967; A4216; C8929; J1940; J2405

== ENCOUNTER → 2024-03-25 | Outpatient (CLI) | payer MEDICARE, SELFPAY ==
--- NOTE | 2024-03-25 12:50 | RAD_ITS ---
EXAM: XR CHEST, 2 VIEWS CLINICAL INDICATION: ASPIRATION PNEUMONIA TECHNIQUE: Frontal and lateral views of the chest. COMPARISON: Two-view chest 03/09/2024 FINDINGS: LUNGS AND PLEURAL SPACES: Unremarkable. No consolidation or edema. No pneumothorax. No effusion. HEART: Unremarkable. Cardiac silhouette not enlarged. MEDIASTINUM: Central airways and mediastinal contour are unremarkable. BONES/JOINTS: Unremarkable. No acute fracture. SOFT TISSUES: Unremarkable. RAD/Chest PA and Lateral IMPRESSION: No radiographic evidence of acute cardiopulmonary disease. Electronically Signed: Deni Guy MD at 7:55 EST ,
== END | disposition home or self-care (01) ==
LOC: MTRAD 12:48
PROVIDERS: PCP Family Medicine; Referring Provider Family Medicine; Visit Provider Family Medicine
DX: J69.0 Pneumonitis due to inhalation of food and vomit (principal)
CPT/HCPCS: 71046

== ENCOUNTER → 2024-04-14 | Outpatient (CLI) | payer MEDICARE, SELFPAY ==
--- NOTE | 2024-04-14 13:33 | SP.MBSS_ITS ---
Modified Barium Swallow Patient Information Study Date: 04/14/24 Study Time: 12:45 Direct Billable Minutes: 80 Total Minutes procedure & reportin Diagnosis: Dysphagia R13.10 Referring Physician: Isidro Lozano Reason for Referral: Assess risk for aspiration and determine recommendations for strategies to decrease risk for aspiration. Medical History: PMH: Anxiety and depression, THIAGO, HTN, Asthma, Mild pulmonary arterial systolic HTN, Varicose vein of leg, Wears glasses, Arthritis, History of diverticulitis, COPD, Obesity, Hx of cardiac arrest (01/2018), GERD, Kidney stone, Anaphylactic reaction, Osteoarthritis. Recent hospitalization from 03/09/24-03/11/24 for hypoxia thought to be secondary to aspiration as pt was profusely vomiting at home. Pt also had a fall prior to admission. Pt denies current swallowing difficulty. Current Diet Ordered: Regular textures / Thin liquids Dentition: Natural Teeth and Missing Teeth Mental Status: WNL Respiratory Status: Oxygenating on Room Air Penetration-Aspiration Scale Penetration-Aspiration Scale: OBJECTIVE ASSESSMENT OF SWALLOW FUNCTION (QUANTITATIVE ? PER TRIAL): PENETRATION / ASPIRATION SCALE (CÁRDENAS): 1 = does not enter airway 2 = enters airway/above vocal folds/ejected 3 = enters airway/above vocal folds/not ejected 4 = enters airway/contacts vocal folds/ejected 5 = enters airway/contacts vocal folds/not ejected 6 = enters airway/below vocal folds/ejected 7 = enters airway/below vocal folds/not ejected despite effort 8 = enters airway/below vocal folds/no effort VIDEOFLOROSCOPIC SCALE SCORE (CÁRDENAS): Grade I = aspiration of material that has penetrated into the laryngeal vestibule, intact cough reflex Grade II = aspiration < 10 % of the bolus, intact cough reflex Grade III = aspiration of < 10 % of the bolus, reduced cough reflex or aspiration of > 10 % of the bolus, intact cough reflex Grade IV = aspiration of > 10 % of the bolus, reduced cough reflex Penetration-Aspiration Scale Score Thin Liquid via teaspoon: Result: 1= does not enter airway Thin Liquid via teaspoon Trial 2: Result: 1= does not enter airway Thin Liquid via small single sip: cup: Result: 2= enter airway/above vocal folds/ejected Thin Liquid via sequential sips: cup: Result: 1= does not enter airway Comment: Esophageal screen - Retention of sequential sips of thin liquids in the lower esophagus w/ retrograde flow to the middle esophagus. Loa Thick Liquid via large single sip: cup: Result: 1= does not enter airway Pudding via teaspoon: Result: 1= does not enter airway Comment: Esophageal screen - Mild retention of pudding in the middle esophagus. 1/2 Cookie: Result: 1= does not enter airway Comment: Esophageal screen - Complete clearance. Thin Liquid via single sip: straw: Result: 1= does not enter airway Comment: Esophageal screen - Complete clearance. Oral Phase Labial Seal: No Labial Escape Tongue Control During Bolus Hold: Posterior escape of less than half of bolus Bolus Preparation/Mastication: Slow prolonged chewing/mashing with complete recollection Bolus Transport/Lingual Motion: Slowed tongue motion Oral Residue: Majority of bolus remaining (Piecemeal deglutition of pudding, cookie, and some drinks) Pharyngeal Phase Initiation of Pharyngeal Swallow: Bolus head at posterior laryngeal surgace of epiglottis Soft Palate Elevation: Trace column of contrast/air between soft palate and pharyngeal wall Laryngeal Elevation: Comp. Superior move thyroid cart w/comp. apprx arytenoid cart-epig pet Anterior Hyoid Excursion: Complete anterior movement Epiglottic Movement: Complete inversion Laryngeal Vestibule Closure at Height of Swallow: Incomplete; narrow column of air/contrast in laryngeal vestibule (trace laryngeal penetration 1X w/ thin liquids, which fully ejected after the swallow was complete) Pharyngeal Stripping Wave: Present - complete Pharyngoesophageal Segment Opening: Complete distension and complete duration; n o obstruction of flow Tongue Base Retraction: Trace column of contrast between tongue base & post. pharyngeal wall Pharyngeal Residue: Trace residue within or on pharyngeal structures Esophageal Phase Esophageal Clearance: Esophageal retention w/ retrograde flow below pharyngoesophageal seg. Diagnosis/Impression Diagnosis: Mild oral dysphagia R13.11; Esophageal dysphagia R13.14 Impression: Oral phase findings: -Slowed, but complete mastication likely due to missing teeth. -Piecemeal deglutition of pudding and cookie, but pt fully cleared oral residues after independent use of multiple swallows. -Slowed tongue motion. Pharyngeal phase grossly WNL. Good pharyngeal motility. Good airway closure during the swallow with only trace laryngeal penetration 1X w/ thin liquids, which fully ejected after the swallow was complete. No aspiration. Esophageal phase findings: -Retention of sequential sips of thin liquids in the lower esophagus w/ retrograde flow to the middle esophagus. -Mild retention of pudding in the middle esophagus. -Small CP bar at the level of C4-C5, which did not appear to impact bolus clearance through the UES. Recommendations Diet: Regular Textures and Thin Liquids Compensatory Strategies: Small Bites, Small Sips, Slow Rate, Alternate bites/solids and sips/liquids, Sitting upright and Remain sitting upright for 30 minutes after PO intake Recommend Repeat Modified Barium Swallow: No Need for Skilled Speech Therapy Services: No Recommended Referrals: GI Consult (Would consider GI consult due to retention and retrograde flow of thin liquid barium in the lower and middle esophagus w/ sequential sips.) Education Completed: 1. Described result of evaluation. and 5. Patient demonstrates recommended strategies. Status Active ST Patient: Active Contact Information [facility] Speech Therapy:: Shae Weaver M.A. CCC-BINDERY MACHINE SETTER? Speech-Language Pathologist?? [facility] [address] [place] [address]? [email or web address]?? [phone]
== END | disposition home or self-care (01) ==
LOC: RAD 12:50
PROVIDERS: PCP Family Medicine; Referring Provider Family Medicine; Visit Provider Family Medicine
DX: J69.0 Pneumonitis due to inhalation of food and vomit (principal)
CPT/HCPCS: 74230; 92611

== ENCOUNTER → 2024-04-22 | Outpatient (CLI) | payer MEDICARE, SELFPAY ==
[2024-04-22 12:20] LABS: Color, Urine Yellow (Yellow); Glucose, Dipstick Normal (Normal); Ketone-Dipstick Negative (Negative); Leukocyte Esterase-Dipstick 100 /ul (Negative); Nitrite-Dipstick Negative (Negative); Occult Blood-Urine 25 /ul (Negative); Protein-Dipstick Negative (Negative); Urine Bilirubin Dipstick Negative (Negative); Urine Clarity Cloudy (Clear); Urine Urobilinogen Normal (Normal)
[2024-04-22 12:40] LABS: Red Blood Cells-Urine 0-5 SEEN /hpf (0-5); White Blood Cells 5-10 SEEN /hpf (0-5)
[2024-04-22 12:41] LABS: Bacteria 3+ /hpf (None Seen); Mucous, Urine 1+ /hpf (<or=2+); Renal Epithelial Cells 0-5 SEEN /hpf (0-5); Squamous Epithelial Cells - UA 10-25 SEEN /hpf (5-10); Transitional Epithelial - Ur 0-5 SEEN /hpf (0-5)
[2024-04-22 12:46] LABS: Absolute Lymphocyte Count 1.66 X10^3/uL (0.83-4.51); Absolute Neutrophil Count 4.2 X10^3/uL (2.0-7.7); Basophil# 0.09 X10^3/uL; Basophil% 1.4 % (0-1); Eosinophil# 0.24 X10^3/uL; Eosinophils% 3.6 % (0-5); Hematocrit 38.7 % (37-47); Hemoglobin 12.4 g/dL (12.0-15.0); Lymphocyte # 1.66 X10^3/ul (0.83-4.51); Lymphocyte % 25.2 % (19-41); Mean Corpuscular Hgb 31.6 pg (27.0-32.0); Mean Corpuscular Volume 98.7 fL (81-99); Mean Platelet Vol. 10.3 fl (6.2-12.0); Monocyte# 0.37 X10^3/uL; Monocyte% 5.6 % (0-10); NRBC Flagged by Analyzer 0 % (0-5); Neutrophil % 63.9 % (47-70); Platelet Count 330 K/mm3 (150-450); RBC Distribution Width CV 12.2 % (11.6-14.6); RBC Distribution Width SD 44.1 fl (35.1-43.9); Red Blood Count 3.92 M/mm3 (4.2-5.4); White Blood Count 6.6 K/mm3 (4.4-11.0)
[2024-04-22 12:59] LABS: ALB/GLOB Ratio 0.8 RATIO (0.9-2.4); AST(SGOT) 16 U/L (15-37); Alanine Aminotransfer ALT/SGPT 18 U/L (13-56); Albumin, Serum 3.2 g/dL (3.2-5.0); Alkaline Phosphatase 104 U/L (45-117); Anion Gap 7 (5-15); BUN 24 mg/dL (7-18); BUN/Creat Ratio 28.9 RATIO (10-20); Calcium,Total 9.1 mg/dL (8.5-10.1); Chloride 110 mmol/L (98-107); Cholesterol 161 mg/dL (200); Creatinine, Serum 0.83 mg/dL (0.55-1.02); EST Glomerular Filtration Rate 72 mL/min (>60); Est Glom Filt Rate - Afr Amer 87 mL/min (>60); Globulin 4.2 g/dL (2.2-4.2); Glucose 107 mg/dL (74-106); High Density Lipoprotein 64 mg/dL; Magnesium 1.9 mg/dL (1.6-2.6); Protein, Total 7.4 g/dL (6.4-8.2); Sodium Level 142 mmol/L (136-145); Triglycerides 88 mg/dL; Very Low Density Lipoprotein 18 mg/dL (5-40)
[2024-04-23 15:44] LABS: Hemoglobin A1c 5.6 % (3.8-5.6)
== END | disposition home or self-care (01) ==
LOC: MTLAB 10:08
PROVIDERS: PCP Family Medicine; Referring Provider Family Medicine; Visit Provider Family Medicine
DX: R73.09 Other abnormal glucose (principal); I10 Essential (primary) hypertension
CPT/HCPCS: 36415; 80053; 80061; 81001; 83036; 83735; 84443; 85025

== ENCOUNTER → 2024-04-26 | Outpatient (CLI) | payer MEDICARE, SELFPAY ==
[2024-04-26 16:13] LABS: Hemoglobin A1c 4.2 % (3.8-5.6)
== END | disposition home or self-care (01) ==
LOC: MFPLAB 09:38
PROVIDERS: PCP Family Medicine; Referring Provider Family Medicine; Visit Provider Family Medicine
DX: R73.09 Other abnormal glucose (principal)
CPT/HCPCS: 36415; 83036

== ENCOUNTER → 2024-05-18 | Outpatient (CLI) | payer MEDICARE, MEDICAID, SELFPAY ==
--- NOTE | 2024-05-18 14:55 | BI_ITS ---
PROCEDURE: SCREENING MAMM (CAD), BILAT REASON FOR EXAM: F, Age 68 y/o, presents for annual screening mammogram. Family history of breast cancer in her sister at age 60. TECHNIQUE: Bilateral screening digital breast tomosynthesis with 2D and 3D images. Computer aided detection. COMPARISON: 04/15/2023, 04/03/2022 FINDINGS: The breasts are almost entirely fatty. No suspicious masses, areas of developing architectural distortion, or suspicious calcifications. BI/SCREENING MAMM (CAD), BILAT IMPRESSION: There is no mammographic evidence of malignancy in either breast. BI-RADS 1: NEGATIVE. RECOMMEND ANNUAL MAMMOGRAPHIC SCREENING. Follow-up code: Routine Follow-up The patient will be notified of the results by letter. Reading Location: [id number]
--- NOTE | 2024-05-18 14:58 | BD_ITS ---
PROCEDURE: DEXA BONE DENSITY STUDY REASON FOR EXAM: F, age 68 y/o . Postmenopausal. TECHNIQUE: DEXA scan of lumbar spine and left forearm. COMPARISON: None. FINDINGS: Lumbar Spine (L1-L4): g/cm2 (1.131)/T-score (0.7)/Z-score (2.8) findings are suggestive of normal with a low fracture risk. Left Forearm: g/cm2 (0.609)/T-score (0.6)/Z-score (2.5) BD/Dexa Bone Density Study IMPRESSION: The patient is considered normal as outlined below according to [employer] anization (WHO) criteria with a low fracture risk. Reading Location: [facility]
== END | disposition home or self-care (01) ==
LOC: OPBD 14:53
PROVIDERS: PCP Family Medicine; Referring Provider Nurse Practitioner Family; Visit Provider Nurse Practitioner Family
DX: Z12.31 Encounter for screening mammogram for malignant neoplasm of breast (principal); Z78.0 Asymptomatic menopausal state; Z80.0 Family history of malignant neoplasm of digestive organs; Z13.820 Encounter for screening for osteoporosis
CPT/HCPCS: 77067; 77080

== ENCOUNTER → 2024-06-21 | Outpatient (CLI) | payer MEDICARE, SELFPAY ==
--- NOTE | 2024-06-21 08:03 | RAD_ITS ---
EXAM: Air-contrast esophagram. CLINICAL HISTORY: Epigastric pain and possible aspiration. COMPARISON: None TECHNIQUE: The patient ingested barium. Imaging of the esophagus was obtained. 12.2 seconds of fluoroscopy. 13.6 mGy. FINDINGS: The patient ingested barium. No evidence of esophageal obstruction. No evidence of gastroesophageal reflux. No mass lesion is seen. The patient ingested a 12 mm tablet the barium. There was delay in the passage through the gastroesophageal junction. RAD/Esophagus Dual Contrast IMPRESSION: Mild delay of the 12 mm tablet of barium at the gastroesophageal junction. Reading Location: [place] [id number]
== END | disposition home or self-care (01) ==
PROVIDERS: PCP Family Medicine; Referring Provider Internal Medicine Gastroenterology; Visit Provider Internal Medicine Gastroenterology
DX: R10.13 Epigastric pain (principal); R13.10 Dysphagia, unspecified
CPT/HCPCS: 74221

== ENCOUNTER → 2024-07-23 | Outpatient (CLI) | payer MEDICARE, MEDICAID, SELFPAY ==
[2024-07-23 09:21] LABS: Bacteria 0 SEEN /hpf (None Seen); Mucous, Urine 0 SEEN /hpf (<or=2+); Red Blood Cells-Urine 0 SEEN /hpf (0-5); White Blood Cells 0 SEEN /hpf (0-5)
[2024-07-23 10:47] LABS: Absolute Lymphocyte Count 1.72 X10^3/uL (0.83-4.51); Absolute Neutrophil Count 4.8 X10^3/uL (2.0-7.7); Basophil# 0.07 X10^3/uL; Basophil% 0.9 % (0-1); Eosinophils% 5.2 % (0-5); Hematocrit 37.7 % (37-47); Hemoglobin 12.6 g/dL (12.0-15.0); Lymphocyte # 1.72 X10^3/ul (0.83-4.51); Lymphocyte % 22.6 % (19-41); Mean Corp Hgb Conc 33.4 g/dL (32-36); Mean Corpuscular Hgb 32.6 pg (27.0-32.0); Mean Corpuscular Volume 97.4 fL (81-99); Mean Platelet Vol. 10.2 fl (6.2-12.0); Monocyte# 0.58 X10^3/uL; Monocyte% 7.6 % (0-10); NRBC Flagged by Analyzer 0 % (0-5); Neutrophil # 4.83 X10^3/uL (2.7-7.7); Neutrophil % 63.4 % (47-70); Platelet Count 318 K/mm3 (150-450); RBC Distribution Width CV 12.5 % (11.6-14.6); RBC Distribution Width SD 44.9 fl (35.1-43.9); Red Blood Count 3.87 M/mm3 (4.2-5.4); White Blood Count 7.6 K/mm3 (4.4-11.0)
[2024-07-23 10:49] LABS: Color, Urine Yellow (Yellow); Glucose, Dipstick Normal (Normal); Ketone-Dipstick Negative (Negative); Leukocyte Esterase-Dipstick 25 /ul (Negative); Nitrite-Dipstick Negative (Negative); Occult Blood-Urine 10 /ul (Negative); Protein-Dipstick 15 mg/dl (Negative); Specific Gravity, Urine 1.025 (1.002-1.030); Urine Bilirubin Dipstick Negative (Negative); Urine Clarity Clear (Clear); Urine Urobilinogen Normal (Normal)
[2024-07-23 10:57] LABS: Squamous Epithelial Cells - UA 0-5 SEEN /hpf (5-10)
[2024-07-23 12:29] LABS: ALB/GLOB Ratio 1.1 RATIO (0.9-2.4); AST(SGOT) 19 U/L (<=31); Alanine Aminotransfer ALT/SGPT 12 U/L (<=34); Albumin, Serum 3.8 g/dL (3.4-4.8); Alkaline Phosphatase 103 U/L (35-104); Anion Gap 11 (5-15); BUN 29 mg/dL (4-19); Calcium,Total 9.2 mg/dL (7.6-11.0); Carbon Dioxide 23.8 mmol/L (21.0-32.0); Chloride 108 mmol/L (98-108); Cholesterol 161 mg/dL (<=200); Creatinine, Serum 0.82 mg/dL (0.70-1.20); EST Glomerular Filtration Rate 78 (>60); Globulin 3.6 g/dL (2.2-4.2); Glucose 75 mg/dL (70-99); High Density Lipoprotein 58 mg/dL; Low Density Lipoprotein Calc. 78 mg/dL; Potassium 4.2 mmol/L (3.3-5.1); Protein, Total 7.4 g/dL (5.9-8.4); Sodium Level 143 mmol/L (133-145); Total Bilirubin 0.29 mg/dL (0.00-1.30); Triglycerides 125 mg/dL; Very Low Density Lipoprotein 25 mg/dL (5-40); cholesterol:hdl ratio screen 2.77
== END | disposition home or self-care (01) ==
PROVIDERS: PCP Family Medicine; Referring Provider Family Medicine; Visit Provider Family Medicine
DX: I10 Essential (primary) hypertension (principal)
CPT/HCPCS: 36415; 80053; 80061; 81001; 85025

== ENCOUNTER → 2024-09-29 | Outpatient (CLI) | payer MEDICARE, MEDICAID, SELFPAY ==
--- NOTE | 2024-09-29 11:30 | US_ITS ---
PROCEDURE: EXT NON VASC LIMITED/SOFT TISS 09/29/2024 REASON FOR EXAM: CYST VS LIPOMA RIGHT WRIST TECHNIQUE: EXT NON VASC LIMITED/SOFT TISS COMPARISON: None FINDINGS: Imaging of the palpable lumps at the level of the right wrist was obtained. 2 adjacent cysts are seen. The larger cyst measures 7 mm x 6 mm x 4 mm. US/Ext Non Vasc Limited/Soft Tiss IMPRESSION: The palpable abnormality corresponds to 2, adjacent cysts. The larger measures 7 mm x 6 mm x 4 mm. Reading Location: [place] [address]
== END | disposition home or self-care (01) ==
LOC: US 11:26
PROVIDERS: PCP Family Medicine; Referring Provider Family Medicine; Visit Provider Family Medicine
DX: M67.431 Ganglion, right wrist (principal)
CPT/HCPCS: 76882

== ENCOUNTER → 2024-12-23 | Outpatient (CLI) | payer MEDICARE, MEDICAID, SELFPAY ==
--- NOTE | 2024-12-23 09:03 | RAD_ITS ---
PROCEDURE: TIBIA FIBULA 2 VIEWS 12/23/2024 REASON FOR EXAM: PAIN TECHNIQUE: Procedure Code: RADTF Modality: DX Procedure: TIBIA FIBULA 2 VIEWS Laterality: Left COMPARISON: None FINDINGS: The left tibia and fibula are intact. The knee and ankle joints are unremarkable. There are no soft tissue abnormalities. RAD/Tibia & Fibula 2 Views IMPRESSION: Normal tibia and fibula. Reading Location: [place] [id number]
--- NOTE | 2024-12-23 09:03 | RAD_ITS ---
PROCEDURE: HIPS B/L MIN 2 VIEWS W/ PELVIS 12/23/2024 REASON FOR EXAM: PAIN TECHNIQUE: Procedure Code: RADHPELP Modality: DX Procedure: HIPS B/L MIN 2 VIEWS W/ PELVIS Laterality: Bilateral COMPARISON: 07/28/2023 FINDINGS: BONES: No acute fracture or focal osseous lesion. Bilateral hip prostheses with well- seated hardware. No evidence of hardware failure or loosening. JOINTS: No dislocation. SOFT TISSUES: The soft tissues are unremarkable. RAD/Hips B/L min 2 views w/ Pelvis IMPRESSION: No acute findings. Reading Location: [id number]
--- NOTE | 2024-12-23 09:03 | RAD_ITS ---
PROCEDURE: LUMBAR SPINE 2 OR 3 VIEWS 12/23/2024 REASON FOR EXAM: PAIN TECHNIQUE: Procedure Code: RADSPLL Modality: DX Procedure: LUMBAR SPINE 2 OR 3 VIEWS COMPARISON: 07/28/2023 FINDINGS: BONES: Five [id number] lumbar vertebral bodies. No fracture or focal osseous lesion. Grade 1 anterolisthesis of L5 on S1. Bilateral hip prostheses partially imaged. DISC/DEGENERATIVE CHANGES: Mild disc space narrowing throughout, greatest at L4-L5. L4-L5 and L5-S1 facet arthropathy. SOFT TISSUES: No acute abnormality seen. RAD/Lumbar Spine 2 or 3 Views IMPRESSION: DEGENERATIVE CHANGES OF THE LUMBAR SPINE. Reading Location: [id number]
== END | disposition home or self-care (01) ==
PROVIDERS: PCP Family Medicine; Referring Provider Family Medicine; Visit Provider Family Medicine
DX: M54.10 Radiculopathy, site unspecified (principal); M25.551 Pain in right hip; M25.552 Pain in left hip; M79.662 Pain in left lower leg
CPT/HCPCS: 72100; 73521; 73590

== ENCOUNTER → 2025-01-25 | Outpatient (CLI) | payer MEDICARE, MEDICAID, SELFPAY ==
[2025-01-25 09:19] LABS: Mucous, Urine 0 SEEN /hpf (<or=2+); Red Blood Cells-Urine 0 SEEN /hpf (0-5)
[2025-01-25 10:00] LABS: Color, Urine Yellow (Yellow); Glucose, Dipstick Normal (Normal); Ketone-Dipstick Negative (Negative); Leukocyte Esterase-Dipstick 25 /ul (Negative); Nitrite-Dipstick Negative (Negative); Occult Blood-Urine 25 /ul (Negative); Protein-Dipstick 15 mg/dl (Negative); Specific Gravity, Urine 1.025 (1.002-1.030); Urine Bilirubin Dipstick Negative (Negative)
[2025-01-25 10:08] LABS: Squamous Epithelial Cells - UA 5-10 SEEN /hpf (5-10)
[2025-01-25 12:29] LABS: Hematocrit 37.7 % (37-47); Hemoglobin 12.8 g/dL (12.0-15.0); Immature Granulocytes Count 0.020 X10^3/uL (0.0-0.0); Mean Corp Hgb Conc 34.0 g/dL (32-36); Mean Corpuscular Volume 96.9 fL (81-99); Mean Platelet Vol. 10.5 fl (6.2-12.0); NRBC Flagged by Analyzer 0 % (0-5); Platelet Count 331 K/mm3 (150-450); RBC Distribution Width CV 12.4 % (11.6-14.6); RBC Distribution Width SD 44.0 fl (35.1-43.9); Red Blood Count 3.89 M/mm3 (4.2-5.4); White Blood Count 6.9 K/mm3 (4.4-11.0)
[2025-01-25 13:13] LABS: AST(SGOT) 22 U/L (<=31); Alanine Aminotransfer ALT/SGPT 15 U/L (<=34); Albumin, Serum 4.0 g/dL (3.4-4.8); Alkaline Phosphatase 88 U/L (35-104); Anion Gap 11 (5-15); BUN 23 mg/dL (4-19); BUN/Creat Ratio 30.2 RATIO (10-20); Calcium,Total 9.3 mg/dL (7.6-11.0); Carbon Dioxide 22.5 mmol/L (21.0-32.0); Chloride 108 mmol/L (98-108); Cholesterol 183 mg/dL (<=200); Globulin 3.4 g/dL (2.2-4.2); Glucose 83 mg/dL (70-99); Low Density Lipoprotein Calc. 103 mg/dL; Magnesium 1.9 mg/dL (1.5-2.2); Potassium 3.9 mmol/L (3.3-5.1); Triglycerides 87 mg/dL; Very Low Density Lipoprotein 17 mg/dL (5-40); cholesterol:hdl ratio screen 2.88
== END | disposition home or self-care (01) ==
LOC: MTLAB 09:15
PROVIDERS: PCP Family Medicine; Referring Provider Family Medicine; Visit Provider Family Medicine
DX: I10 Essential (primary) hypertension (principal)
CPT/HCPCS: 80053; 80061; 81001; 83735; 84443; 85025